=== PATIENT | male | born 1960 | race Caucasian/White ===

== ENCOUNTER 2021-08-01 11:06 | Outpatient (REF) | payer MEDICAID, SELFPAY ==
--- NOTE | ~2021-08-01 | XR_ITS ---
EXAMINATION: XR CHEST CLINICAL INFORMATION: Chest pain. COMPARISON: Chest 02/20/2016 TECHNIQUE: 2 views of the chest were obtained. FINDINGS: The lungs are hyperinflated but clear. The heart size and pulmonary vascularity is normal. There is a 6 mm nodule right lower lobe. The rest of the lungs are clear. Heart size and pulmonary vascularity is normal. No gross bony abnormality seen. XR/XR chest 2V IMPRESSION: 6 mm calcified nodule right lower lobe, stable since 2016. Otherwise emphysematous lungs, but clear.
== END 2021-08-01 11:07 | disposition home or self-care (01) ==
LOC: HO.XRAY 11:06
PROVIDERS: PCP Family Medicine; Visit Provider Family Medicine
DX: R07.89 Other chest pain (principal)
CPT/HCPCS: 71046

== ENCOUNTER 2021-08-07 15:30 | Outpatient (REF) | payer MEDICAID, SELFPAY ==
--- NOTE | ~2021-08-07 | XR_ITS ---
EXAMINATION: LEFT ELBOW, LEFT HUMERUS AND LEFT SHOULDER. CLINICAL INFORMATION: Pain. COMPARISON: None TECHNIQUE: Left elbow 3 views. Left humerus 2 views. Left shoulder 3 views. FINDINGS: Left elbow: There is no visible acute fracture, dislocation or subluxation. No abnormal joint effusion or bony erosive changes. Left humerus: There is no visible acute fracture or bony abnormality. The soft tissues are normal. Left shoulder: The glenohumeral and AC joint space is maintained normal. No visible acute fracture, dislocation or lytic process seen. The soft tissues are normal.: XR/XR humerus LT IMPRESSION: Unremarkable left elbow exam. Unremarkable left humerus exam. Unremarkable left shoulder exam.
--- NOTE | ~2021-08-07 | XR_ITS ---
EXAMINATION: LEFT ELBOW, LEFT HUMERUS AND LEFT SHOULDER. CLINICAL INFORMATION: Pain. COMPARISON: None TECHNIQUE: Left elbow 3 views. Left humerus 2 views. Left shoulder 3 views. FINDINGS: Left elbow: There is no visible acute fracture, dislocation or subluxation. No abnormal joint effusion or bony erosive changes. Left humerus: There is no visible acute fracture or bony abnormality. The soft tissues are normal. Left shoulder: The glenohumeral and AC joint space is maintained normal. No visible acute fracture, dislocation or lytic process seen. The soft tissues are normal.: XR/XR shoulder LT min 2V IMPRESSION: Unremarkable left elbow exam. Unremarkable left humerus exam. Unremarkable left shoulder exam.
--- NOTE | ~2021-08-07 | XR_ITS ---
EXAMINATION: LEFT ELBOW, LEFT HUMERUS AND LEFT SHOULDER. CLINICAL INFORMATION: Pain. COMPARISON: None TECHNIQUE: Left elbow 3 views. Left humerus 2 views. Left shoulder 3 views. FINDINGS: Left elbow: There is no visible acute fracture, dislocation or subluxation. No abnormal joint effusion or bony erosive changes. Left humerus: There is no visible acute fracture or bony abnormality. The soft tissues are normal. Left shoulder: The glenohumeral and AC joint space is maintained normal. No visible acute fracture, dislocation or lytic process seen. The soft tissues are normal.: XR/XR elbow LT min 3V IMPRESSION: Unremarkable left elbow exam. Unremarkable left humerus exam. Unremarkable left shoulder exam.
[2021-08-07 16:06] LABS: Basophils Percent Auto 0.4 % (0-2); Hematocrit 39.2 % (42.0-52.0); PLT CLUMP 1; Red Cell Distribution Width 12.5 % (11.0-16.0); SCAN SMEAR FLAG 1
[2021-08-07 16:09] LABS: Eosinophils Absolute Auto 0.2 X10*3/uL (0.0-0.4); Eosinophils Percent Auto 4.1 % (0-4); Hemoglobin 13.7 g/dl (14.0-18.0); Imm Gran Abs Auto 0.02 X10*3/uL (0.00-0.03); Imm Gran Pct Auto 0.4 % (0.0-0.4); Lymphocytes Absolute Auto 1.4 X10*3/uL (1.2-4.9); Lymphocytes Percent Auto 24.1 % (20-40); MANUAL DIFF FLAG SCAN; Mean Corpuscular HGB Conc 34.9 g/dl (31.0-36.0); Mean Corpuscular Hemoglobin 30.9 pg (27.0-33.0); Mean Corpuscular Volume 88.5 fL (80.0-98.0); Monocytes Absolute Auto 0.7 X10*3/uL (0.1-1.2); Neutrophils Absolute Auto 3.3 x10*3/uL (2.0-8.3); Red Blood Count 4.43 X10*6/uL (4.60-5.80)
[2021-08-07 16:11] LABS: White Blood Count 5.6 X10*3/uL (4.8-10.8)
[2021-08-07 16:36] LABS: SLIDE REVIEW VERIFIED
== END 2021-08-07 15:31 | disposition home or self-care (01) ==
LOC: HO.XRAY 15:30
PROVIDERS: PCP Family Medicine; Visit Provider Family Medicine
DX: M25.522 Pain in left elbow (principal); M25.512 Pain in left shoulder; K74.60 Unspecified cirrhosis of liver
CPT/HCPCS: 36415; 73030; 73060; 73080; 85025

== ENCOUNTER → 2022-02-14 08:57 | Outpatient (BNVA) | payer MEDICAID, SELFPAY | PROVIDERS: PCP Family Medicine; Visit Provider Internal Medicine Gastroenterology | DX: K74.60 Unspecified cirrhosis of liver (principal) | CPT/HCPCS: 99202 ==

== ENCOUNTER 2022-02-14 09:58 | Outpatient (REF) | payer MEDICAID, SELFPAY ==
[2022-02-14 10:38] LABS: MANUAL DIFF FLAG NO
[2022-02-14 11:52] LABS: Basophils Percent Auto 0.6 % (0-2); Eosinophils Absolute Auto 0.3 X10*3/uL (0.0-0.4); Eosinophils Percent Auto 5.4 % (0-4); Hematocrit 43.7 % (42.0-52.0); Hemoglobin 14.9 g/dl (14.0-18.0); Imm Gran Abs Auto 0.01 X10*3/uL (0.00-0.03); Imm Gran Pct Auto 0.2 % (0.0-0.4); Lymphocytes Percent Auto 19.1 % (20-40); Mean Corpuscular HGB Conc 34.1 g/dl (31.0-36.0); Mean Corpuscular Hemoglobin 30.5 pg (27.0-33.0); Mean Corpuscular Volume 89.5 fL (80.0-98.0); Mean Platelet Volume 10.7 fL (9.4-12.4); Monocytes Absolute Auto 0.7 X10*3/uL (0.1-1.2); Monocytes Percent Auto 13.7 % (2-11); Neutrophils Absolute Auto 3.2 x10*3/uL (2.0-8.3); Platelet Count 108 X10*3/uL (160-400); Red Blood Count 4.88 X10*6/uL (4.60-5.80); Red Cell Distribution Width 12.9 % (11.0-16.0); White Blood Count 5.2 X10*3/uL (4.8-10.8)
[2022-02-14 12:01] LABS: INTERNATIONAL NORM RATIO 1.1 (0.9-1.1); Prothrombin Time 12.1 SEC (10.0-13.1)
[2022-02-14 12:31] LABS: Erythrocyte Sedimentation Rate 5 MM/HR (0-15)
[2022-02-14 13:11] LABS: HBS Num1 1.29 mIU/mL (0-7.99); HBc Num1 0.08 S/CO (0.00-0.79); HBsAGNum1 0.31 S/CO (0.00-0.99); Hepatitis A Antibody IgM 0.12 Index (0-0.79); Hepatitis B Core Antibody Nonreactive (Nonreactive); Hepatitis B Surface Antigen Negative (Negative); ~HepC Num1 12.71 S/CO (0.00-0.79); ~Hepatitis A Antibody IgM Nonreactive (Nonreactive); ~Hepatitis B Surface Antibody NONREACTIVE (Nonreactive); ~Hepatitis C Antibody Reactive (Nonreactive)
[2022-02-14 13:13] LABS: Folate 13.6 ng/mL (> or = 4.0); Vitamin B12 532 pg/mL (200-900)
[2022-02-14 14:28] LABS: Alanine Aminotransferase 26 U/L (0-40); Albumin Level 4.3 g/dL (3.5-5.0); Alkaline Phosphatase 58 U/L (39-117); Anion Gap 12 (12-20); Aspartate Amino Transferase 29 U/L (5-37); Bilirubin Total 0.6 mg/dL (0.0-1.0); Blood Urea Nitrogen 23 mg/dL (9-16); C Reactive Protein < 0.10 mg/dL (< or = 0.50); Calcium 9.5 mg/dL (8.4-10.2); Carbon Dioxide 23 mmol/L (22-29); Chloride 104 mmol/L (96-108); Estimated Glomerular Filt Rate > 60; Ferritin 362 ng/mL (20-250); Glucose Random 97 mg/dL (60-115); Iron 60 mcg/dL (45-160); Percent Iron Saturation 26 % (15-50); Potassium 3.9 mmol/L (3.3-5.1); Sodium 135 mmol/L (135-145); Total Iron Binding Capacity 235 mcg/dL (228-428); Unsaturated Iron Binding 175 ug/dL; Vitamin D 25-OH Total 31.1 ng/mL (>30)
[2022-02-17 12:28] LABS: Immunoglobulin G 1169 mg/dL (600-1540)
[2022-02-17 15:53] LABS: HCV RNA PCR Qn <1.18 NOT DETECTED Log IU/mL (NOT DETECTED); HCV RNA PCR Qn <15 NOT DETECTED IU/mL (NOT DETECTED)
[2022-02-18 09:33] LABS: Anti Nuclear Antibody Screen POSITIVE (NEGATIVE)
[2022-02-18 12:43] LABS: Gliadin Deamidated IgA Ab <1.0 U/mL; Gliadin Deamidated IgG Ab <1.0 U/mL; Transglutaminase Ab IgG <1.0 U/mL
[2022-02-18 14:28] LABS: Soluble Liver Ag Autoantibody <20.1 U (0.0-20.0)
[2022-02-18 22:39] LABS: FIB-ALT 24 U/L (9-46); FIB-Alpha-2-Macroglobulin 341 mg/dL (106-279); FIB-Apolipoprotein A1 148 mg/dL (94-176); FIB-GGT 34 U/L (3-70); FIB-Haptoglobin 44 mg/dL (43-212); FIB-Total Bilirubin 0.4 mg/dL (0.2-1.2); Liver Fibrosis Score 0.65; Liver Fibrosis Stage F3; Nec Inflam Act Grade A0; Nec Inflam Act Score 0.17
[2022-02-19 04:49] LABS: Liver Kidney Microsomal Ab <=20.0 U (<=20.0)
[2022-02-19 11:54] LABS: Vitamin C 1.2 mg/dL (0.2-2.1)
[2022-02-19 14:28] LABS: Smooth Muscle Antibody <20 U (<20)
[2022-02-19 14:44] LABS: Vitamin K1 >2500 pg/mL (130-1500)
[2022-02-19 16:28] LABS: Alpha-Tocopherol 9.9 mg/L (5.7-19.9)
[2022-02-19 16:37] LABS: Vitamin A 35 mcg/dL (38-98)
[2022-02-19 16:53] LABS: Nicotinamide <20 ng/mL; Vit B3 - Nicotinic Acid <20 ng/mL
[2022-02-19 17:53] LABS: Zinc 57 mcg/dL (60-130)
[2022-02-19 23:47] LABS: Vitamin B5 (Pantothenic Acid) 45 ng/mL (<275)
[2022-02-20 13:08] LABS: Mitochondrial Antibodies NEGATIVE (NEGATIVE)
[2022-02-20 15:53] LABS: Vitamin B1 22 nmol/L (8-30)
== END 2022-02-14 09:59 | disposition home or self-care (01) ==
LOC: HO.LAB 09:58
PROVIDERS: PCP Family Medicine; Visit Provider Internal Medicine Gastroenterology
DX: R10.33 Periumbilical pain (principal); R79.82 Elevated C-reactive protein (CRP); K75.81 Nonalcoholic steatohepatitis (NASH); K74.60 Unspecified cirrhosis of liver; K52.839 Microscopic colitis, unspecified; G89.29 Other chronic pain; R79.89 Other specified abnormal findings of blood chemistry
CPT/HCPCS: 36415; 80053; 81596; 82180; 82306; 82607; 82728; 82746; 82784; 83520; 83540; 84207; 84425; 84446; 84590; 84591; 84597; 84630; 85025; 85610; 85652; 86015; 86038; 86039; 86140; 86255; 86256; 86258; 86364; 86376; 86704; 86706; 86709; 86803; 87340; 87522; 87902; 99202

== ENCOUNTER 2022-03-24 09:59 | Outpatient (REF) | payer MEDICAID, SELFPAY ==
--- NOTE | ~2022-03-24 | US_ITS ---
EXAMINATION: US COMPLETE ABDOMEN WITH LIVER ELASTOGRAPHY CLINICAL INFORMATION: Unspecified cirrhosis of liver. COMPARISON: Ultrasound abdomen 02/24/2015. TECHNIQUE: Real-time imaging of the abdominal viscera. Noninvasive ultrasound liver fibrosis assessment is performed using Huber ElastPQ point quantification shear wave elastography (2D-SWE) with a C5-2 MHz transducer. Multiple elastography samples are obtained. FINDINGS: PANCREAS: The visualized pancreatic head and body are normal in appearance. The remainder of the pancreas is obscured from visualization by the overlying bowel gas. ABDOMINAL AORTA: The proximal, middle, and distal aortic segments are normal in caliber. INFERIOR VENA CAVA: Visualized portions are normal. LIVER: The liver demonstrates normal size, lobulated contour and increased echogenicity. No focal lesion or intrahepatic biliary duct dilatation. The right lobe measures 11.1 cm in length. The left lobe measures 8.5 cm in length. Portal flow is hepatopedal. Shear wave liver elastography median stiffness is 1.88 m/s (reference: normal median stiffness is 1.3 m/s or less). IQR/median stiffness to assess sampling precision is 0.11 (reference: good quality data set is IQR/median stiffness of 0.15 or less). GALLBLADDER: The gallbladder has been surgically removed. COMMON BILE DUCT: Normal in caliber measuring 0.7 cm in diameter. RIGHT KIDNEY: Normal. No hydronephrosis. No renal calculi or focal parenchymal lesions. The kidney measures 9.2 cm in maximum dimension. LEFT KIDNEY: Normal. No hydronephrosis. No renal calculi or focal parenchymal lesions. The kidney measures 9.0 cm in maximum dimension. SPLEEN: Normal. The spleen measures 11.2 cm in maximum dimension. FREE FLUID: None. US/US abdomen comp w elastography IMPRESSION: 1. Echogenic cirrhotic liver without focal lesions. 2. Cholecystectomy new since last ultrasound 02/24/2015. 3. The rest of the abdominal ultrasound is unremarkable. 4. Liver elastography: Median liver stiffness 1.88 m/s corresponding to cACLD (suggestive). REFERENCE: Society of Radiologists in Ultrasound Liver Stiffness Thresholds (2020): LIVER STIFFNESS THRESHOLDS: *Liver Stiffness equal or less than 1.3 m/s: High probability of being normal. *Liver Stiffness less than 1.7 m/s: In the absence of other known clinical signs, rules out compensated advanced chronic liver disease. *Liver Stiffness 1.7-2.1 m/s: Suggestive of compensated advanced chronic liver disease but need further test for confirmation. *Liver Stiffness over 2.1 m/s: Rules in compensated advanced chronic liver disease. *Liver Stiffness over 2.4 m/s: Suggestive of clinically significant portal hypertension. QUALITY OF DATA SET: *IQR/Median value equal or less than 0.15 implies a quality data set. *IQR/Median value over 0.15 implies a poor quality data set. SIGNIFICANT CHANGE FROM PRIOR EXAM: Significant change if liver stiffness measurement is 10% or greater from prior exam. OTHER CONSIDERATIONS: The stage of liver fibrosis may be overestimated in the setting of acute hepatitis, liver inflammation, elevated liver function tests, hepatic vascular congestion, obstructive cholestasis, non-fasting state, and infiltrative diseases such as amyloidosis and lymphoma. In some patients with NAFLD, the liver stiffness thresholds for compensated advanced chronic liver disease may be lower. In causes other than viral hepatitis and NAFLD, liver stiffness thresholds are not well established.
== END 2022-03-24 10:00 | disposition home or self-care (01) ==
LOC: HO.US 09:59
PROVIDERS: PCP Family Medicine; Visit Provider Internal Medicine Gastroenterology
DX: K74.60 Unspecified cirrhosis of liver (principal)
CPT/HCPCS: 76705; 76981

== ENCOUNTER 2022-06-10 07:58 | Outpatient (REF) | payer MEDICAID, SELFPAY ==
[2022-06-10 09:12] LABS: MANUAL DIFF FLAG NO
[2022-06-10 09:43] LABS: Basophils Percent Auto 0.7 % (0-2); Eosinophils Absolute Auto 0.3 X10*3/uL (0.0-0.4); Eosinophils Percent Auto 5.6 % (0-4); Hematocrit 42.7 % (42.0-52.0); Imm Gran Abs Auto 0.02 X10*3/uL (0.00-0.03); Imm Gran Pct Auto 0.3 % (0.0-0.4); Lymphocytes Absolute Auto 1.4 X10*3/uL (1.2-4.9); Mean Corpuscular HGB Conc 35.1 g/dl (31.0-36.0); Mean Corpuscular Hemoglobin 31.3 pg (27.0-33.0); Mean Platelet Volume 10.1 fL (9.4-12.4); Monocytes Absolute Auto 0.8 X10*3/uL (0.1-1.2); Monocytes Percent Auto 13.5 % (2-11); Neutrophils Absolute Auto 3.1 x10*3/uL (2.0-8.3); Neutrophils Percent Auto 54.9 % (45-73); Platelet Count 121 X10*3/uL (160-400); Red Cell Distribution Width 13.2 % (11.0-16.0); White Blood Count 5.7 X10*3/uL (4.8-10.8)
[2022-06-10 09:59] LABS: Appearance Urine Clear; Color Urine Yellow; Glucose Urine UA Negative (Negative); Leukocyte Esterase Urine Negative (Negative); Nitrite Urine Negative (Negative); Urine Blood Negative (Negative); Urine Ketones Negative (Negative); Urine Protein Negative (Neg-Trace)
[2022-06-10 10:05] LABS: Bacteria Urine None Seen (None Seen); Hyaline Casts Urine 0-2 /LPF (0-2); RBC Urine 0-2 /HPF (0-2); Squamous Epithelial Cell Urine 0-2 /HPF (0-2); WBC Urine 0-5 /HPF (0-5)
[2022-06-10 10:20] LABS: Creatinine Urine 57.46 mg/dL; Total Protein Urine Random < 7 mg/dL (<12)
[2022-06-10 10:22] LABS: Erythrocyte Sedimentation Rate 3 MM/HR (0-15)
[2022-06-10 10:33] LABS: Anion Gap 13 (12-20)
[2022-06-10 10:34] LABS: Alanine Aminotransferase 34 U/L (0-40); Albumin Level 4.2 g/dL (3.5-5.0); Alkaline Phosphatase 48 U/L (39-117); Aspartate Amino Transferase 31 U/L (5-37); Blood Urea Nitrogen 15 mg/dL (9-16); C Reactive Protein < 0.04 mg/dL (< or = 0.50); Calcium 9.6 mg/dL (8.4-10.2); Carbon Dioxide 23 mmol/L (22-29); Chloride 110 mmol/L (96-108); Estimated Glomerular Filt Rate > 60; Glucose Random 73 mg/dL (60-115); Rheumatoid Factor < 13.0 IU/mL (<15.0); Sodium 142 mmol/L (135-145); Total Protein 6.8 g/dL (6.5-8.0)
[2022-06-12 14:48] LABS: Cyclic Citrullinated Peptide <16 UNITS
[2022-06-12 14:59] LABS: Complement C3 102 mg/dL (82-185)
[2022-06-13 07:04] LABS: Anti DNA DS Antibody 2 IU/mL; Antibody to SS-A Antigen <1.0 NEG AI (<1.0 NEG); Antibody to SS-B Antigen <1.0 NEG AI (<1.0 NEG); SM/Ribonucleoprotein Ab <1.0 NEG AI (<1.0 NEG); Smith Protein <1.0 NEG AI (<1.0 NEG)
[2022-06-14 13:04] LABS: DNAds, Crithidia Antibody Negative (Negative)
== END 2022-06-10 07:59 | disposition home or self-care (01) ==
LOC: HO.LAB 07:58
PROVIDERS: PCP Family Medicine; Visit Provider Student in an Organized Health Care Education/Training Program
DX: M32.9 Systemic lupus erythematosus, unspecified (principal); M67.912 Unspecified disorder of synovium and tendon, left shoulder; M25.512 Pain in left shoulder; M75.81 Other shoulder lesions, right shoulder; G89.29 Other chronic pain; Z79.899 Other long term (current) drug therapy
CPT/HCPCS: 36415; 80053; 81001; 84156; 85025; 85652; 86140; 86160; 86200; 86225; 86235; 86255; 86431; 99202

== ENCOUNTER → 2022-06-27 09:38 | Outpatient (BNVA) | payer MEDICAID, SELFPAY | PROVIDERS: PCP Family Medicine; Visit Provider Internal Medicine Gastroenterology | DX: K74.60 Unspecified cirrhosis of liver (principal); K75.81 Nonalcoholic steatohepatitis (NASH); B19.20 Unspecified viral hepatitis C without hepatic coma; Z23 Encounter for immunization | CPT/HCPCS: 90471; 90472; 90632; 90746; 99212 ==

== ENCOUNTER 2022-09-18 14:40 | Outpatient (REF) | payer MEDICAID, SELFPAY ==
--- NOTE | ~2022-09-18 | US_ITS ---
EXAMINATION: US RIGHT INGUINAL REGION, LIMITED/FOLLOW UP CLINICAL INFORMATION: Right inguinal pain,? Hernia COMPARISON: None available. TECHNIQUE: Ultrasound the right pelvis/inguinal region FINDINGS: Ultrasound of the right inguinal region demonstrates a 1.6 x 1.3 x 1.6 cm fluid collection disrupting the fascial/muscle layers,? Ligament tear versus tendon tear versus muscle. US/US pelvic limited IMPRESSION: 1.6 cm fluid collection disrupting the fascial/muscle layers in the right inguinal region,? Ligament tear versus tendon tear versus muscle.
== END 2022-09-18 14:41 | disposition home or self-care (01) ==
LOC: HO.US 14:40
PROVIDERS: PCP Family Medicine; Visit Provider Family Medicine
DX: R19.09 Other intra-abdominal and pelvic swelling, mass and lump (principal)
CPT/HCPCS: 76857

== ENCOUNTER 2022-10-09 10:13 | Outpatient (AMB) | payer MEDICAID, SELFPAY ==
--- NOTE | 2022-10-09 10:20 | MHC.OFFVIS ---
Intake Vital Signs 10/09/22 10:40 Height 5 ft 5 in Weight 130 lb 6 oz BMI 21.7 BP 117/70 Blood Pressure Location Lt brachial Position Sitting Pulse 64 Intake Visit Reasons: mass right inguinal area Intake Note: Patient is seen in office for evaluation and treatment of a mass right inguinal area. 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 Accompanied by: Self / Same As Patient Allergies NSAIDS (Non-Steroidal Anti-Inflamma Allergy (Severe, Verified 10/09/22 10:36) Unknown aspirin [ASA] Allergy (Unknown, Verified 10/09/22 10:36) Unknown but cannot take naproxen [NAPROXEN] Allergy (Unknown, Verified 10/09/22 10:36) ABDOMINAL PAIN, ABD PAIN Penicillins [PENICILLINS] Allergy (Unknown, Verified 10/09/22 10:36) Rash tuberculin, purified protein deriva [TB TEST] Allergy (Unknown, Verified 10/09/22 10:36) Unknown acetaminophen [From TYLENOL] Adverse Reaction (Unknown, Verified 10/09/22 10:36) Abdominal Pain mesalamine [From ASACOL] Adverse Reaction (Unknown, Verified 10/09/22 10:36) Abdominal Pain pseudoephedrine [From SUDAFED] Adverse Reaction (Unknown, Verified 10/09/22 10:36) Abdominal Pain ibuprofen [From Motrin] Adverse Reaction (Verified 10/09/22 10:36) Abdominal Pain HPI HPI Comments History of Present Illness Details 62-year-old male patient presenting for evaluation of right groin pain. This began approximately 5 years ago in seems to be worsened with exercise and lifting. The pain is localized to the upper anterior thigh and lower inguinal region. He denies any palpable lump but a lump was noted on physical examination. He subsequently underwent evaluation with ultrasound of the right inguinal region. Apparently a fluid collection was identified felt to be suggestive of a tendon rupture. No hernia could be identified. He denies nausea, vomiting, fever, or chills. 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 He denies a history of previous inguinal surgery. [facility] Medical History Afib Anxiety Cirrhosis Depression Glaucoma Hypertension Surgical History H/O abdominal surgery History of cardiac catheterization History of cholecystectomy History of ear surgery History of tooth extraction S/P LASIK surgery of both eyes Family History Mother Breast cancer Rheumatoid arthritis Social History Household Members: Friend(s) Housing: House Are you a primary healthcare receptionist to a significant other at home: No Do you presently have visiting nurse or other home services: No Patient Tobacco Use Status: Never used Tobacco Second Hand Smoke Exposure: Yes Substance Use Type: Marijuana service: No Current occupational status: disabled Review of Systems Const All systems reviewed & are unremarkable except as noted in HPI and below Denies chills, Denies fever(s), Denies headache(s), Denies poor appetite and Denies weakness ENT Denies headache(s) Card Denies chest pain, Denies irregular heart rhythm, Denies palpitations and Denies dyspnea Resp Denies cough, Denies excessive phlegm production and Denies dyspnea GI Reports as per HPI, Reports abdominal pain, Denies bloating, Denies change in bowel habits, Denies constipation, Denies heartburn, Denies diarrhea, Denies nausea and Denies vomiting Denies difficulty urinating and Denies urinary frequency Musc Denies back pain, Denies muscle weakness and Denies numbness Skin/Breast Denies changing lesions and Denies unusual bruising Neuro Denies headache(s), Denies numbness, Denies paresthesias and Denies weakness Psych Denies anxiety and Denies depression Endo Denies palpitations Oneil/Lymph Denies lymphadenopathy Physical Exam Vital Signs: Last Vital Signs Pulse 64 10/09/22 10:40 BP 117/70 10/09/22 10:40 BMI result Body Mass Index 21.7 Const General: cooperative and no acute distress Nutritional Appearance: well nourished Orientation/consciousness: patient oriented x3 Limitations: no limitations HEENT Head: Yes normocephalic and Yes atraumatic Ears: hearing grossly normal bilaterally Resp Effort & Inspection: normal respiratory effort, no audible wheezes, no cough and no respiratory distress Cardio Jugular venous distension: no JVD GI Other: Tenderness with palpation of the upper anterior thigh below the inguinal ligament along the medial tendons and into the inguinal canal. No hernias noted with Valsalva maneuvers. No palpable lump or lymphadenopathy could be appreciated. Inspection: Yes normal to inspection Abdomen image: 1. Area of maximal tenderness palpation. No hernia appreciated. Skin Other: Warm, dry, no rash Neuro General: patient oriented x3 Extrem General: Yes no clubbing, cyanosis or edema Assessment & Plan Assessment & Plan (1) Right groin pain: Code(s): R10.31 - Right lower quadrant pain Plan 62-year-old male patient presenting with severe pain in the right groin found to possibly have a muscle or ligament tear. Examination today revealed no palpable hernia explain his symptoms. I did recommend further evaluation with a CT of the abdomen and pelvis to further evaluate for any intestinal or muscular injury. He will return following this study to review the results and discuss treatment options. Orders: Orders CT abdomen pelvis wo IV con Today R10.31 - Right lower quadrant pain Coding Level of Care Code New Pt Level 4 (00044) Diagnoses Right groin pain R10.31
[2022-10-09 10:40] VITALS: BP 117/70; PULSE 64; BMI 21.7
== END 2022-10-09 10:46 | disposition home or self-care (01) ==
PROVIDERS: PCP Family Medicine; Referring Provider Family Medicine; Visit Provider Surgery
DX: R10.31 Right lower quadrant pain (principal)
CPT/HCPCS: 99204

== ENCOUNTER → 2022-10-09 10:13 | Outpatient (BNVA) | payer MEDICAID, SELFPAY | PROVIDERS: PCP Family Medicine; Referring Provider Family Medicine; Visit Provider Surgery | DX: R10.31 Right lower quadrant pain (principal) | CPT/HCPCS: 99202 ==

== ENCOUNTER 2022-12-03 09:01 | Outpatient (REF) | payer MEDICAID, SELFPAY ==
--- NOTE | ~2022-12-03 | CT_ITS ---
EXAMINATION: CT ABDOMEN AND PELVIS WITHOUT CONTRAST CLINICAL INFORMATION: Right lower quadrant pain COMPARISON: 02/24/1950 TECHNIQUE: Multidetector volumetric imaging was performed from the superior aspect of the liver through the pubic symphysis. Sagittal and coronal reformatted images were obtained on the technologist's workstation. This CT examination was performed using dose optimization techniques as appropriate, variously including the following: *Automated exposure control *Adjustment of mA and/or kV according to patient size (this includes techniques or standardized protocols for targeted exams where dose is matched to indication/reason for exam; i.e. 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 LUNG BASES: Lingular and bilateral lower lobe atelectasis. Right lower lobe granuloma. LIVER, GALLBLADDER, AND BILIARY TREE: Nodular shrunken liver. Status post cholecystectomy. No intra or extrahepatic biliary ductal PANCREAS: Diffuse calcifications. Pancreatic duct measures 4 mm, seen previously. SPLEEN: Unremarkable. ADRENAL GLANDS: Unremarkable. KIDNEYS AND URETERS: The kidneys are normal in size, shape, and attenuation. No hydronephrosis, hydroureter, or calculi seen. No perinephric stranding. BLADDER: Unremarkable. GASTROINTESTINAL TRACT: Debris-filled stomach. Mild small bowel dilatation and mild small bowel wall thickening. Unremarkable terminal ileum and appendix. Moderate fecal retention. ABDOMINAL WALL: Unchanged appearance soft tissue density bilateral inguinal hernias. Left hydrocele. Left scrotal calcification. LYMPH NODES: No pathologic lymphadenopathy VASCULAR: Recannulized umbilical vein and prominent anterior abdominal pelvic collaterals. Atherosclerotic calcifications nonaneurysmal aorta. Normal caliber inferior vena cava PELVIC VISCERA: Unremarkable. OSSEOUS STRUCTURES: Slight retrolisthesis L5 on S1 with severe L5-S1 disc space narrowing and vacuum disc phenomenon. CT/CT abdomen pelvis wo IV con IMPRESSION: Cirrhosis and portal hypertension. Pancreatic calcifications consistent with chronic pancreatitis. Mild small bowel dilatation and wall thickening, possibly related to portal hypertensive uropathy versus infectious or inflammatory etiology. Moderate fecal retention. Fleischner guidelines were followed.
== END 2022-12-03 09:02 | disposition home or self-care (01) ==
LOC: HO.CT 09:01
PROVIDERS: PCP Family Medicine; Visit Provider Surgery
DX: R10.31 Right lower quadrant pain (principal)
CPT/HCPCS: 74176

== ENCOUNTER 2023-01-20 08:59 | Outpatient (AMB) | payer MEDICAID, SELFPAY ==
[2023-01-20 09:00] VITALS: BP 139/82; PULSE 76; BMI 22.2
--- NOTE | 2023-01-20 09:00 | MHC.OFFVIS ---
Intake Vital Signs 01/20/23 09:00 Height 5 ft 5 in Weight 133 lb 8 oz BMI 22.2 BP 139/82 Blood Pressure Location Lt brachial Position Sitting Pulse 76 Intake Visit Reasons: right groin pain, Ct results Intake Note: Patient is seen in office for CT scan results, following right groin pain. 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 Accompanied by: Self / Same As Patient Allergies NSAIDS (Non-Steroidal Anti-Inflamma Allergy (Severe, Verified 01/20/23 09:00) Unknown aspirin [ASA] Allergy (Unknown, Verified 01/20/23 09:00) Unknown but cannot take naproxen [NAPROXEN] Allergy (Unknown, Verified 01/20/23 09:00) ABDOMINAL PAIN, ABD PAIN Penicillins [PENICILLINS] Allergy (Unknown, Verified 01/20/23 09:00) Rash tuberculin, purified protein deriva [TB TEST] Allergy (Unknown, Verified 01/20/23 09:00) Unknown acetaminophen [From TYLENOL] Adverse Reaction (Unknown, Verified 01/20/23 09:00) Abdominal Pain mesalamine [From ASACOL] Adverse Reaction (Unknown, Verified 01/20/23 09:00) Abdominal Pain pseudoephedrine [From SUDAFED] Adverse Reaction (Unknown, Verified 01/20/23 09:00) Abdominal Pain ibuprofen [From Motrin] Adverse Reaction (Verified 01/20/23 09:00) Abdominal Pain Medication List - Last Reconciled 01/20/23 by Edwin Cary MD atorvastatin (Lipitor) 1 tab PO DAILY diclofenac sodium 1% 2 grams topical QID hydrochlorothiazide 1 tab PO DAILY multivitamin 1 tab PO DAILY peg-electrolyte soln 420 gram 240 mL PO Q10M potassium citrate ER 10 mEq PO DAILY shilajit mg PO tamsulosin 1 cap PO DAILY jzvitpa-fijp-mzeih-oreg-capryl 100 mg-150 mg- 50 mg-150 mg caps PO HPI HPI Comments History of Present Illness Details 62-year-old male patient presenting for evaluation of right groin pain. This began approximately 5 years ago in seems to be worsened with exercise and lifting. The pain is localized to the upper anterior thigh and lower inguinal region. He denies any palpable lump but a lump was noted on physical examination. He subsequently underwent evaluation with ultrasound of the right inguinal region. Apparently a fluid collection was identified felt to be suggestive of a tendon rupture. No hernia could be identified. He denies nausea, vomiting, fever, or chills. 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 He denies a history of previous inguinal surgery. He underwent evaluation with CT pelvis the results of which are being reviewed today. No inguinal hernias identified on either side with possible ligamentous injury. [facility] Medical History Afib Glaucoma Hypertension Anxiety Depression Cirrhosis Surgical History History of tooth extraction History of cardiac catheterization History of ear surgery History of cholecystectomy H/O abdominal surgery S/P LASIK surgery of both eyes Family History Mother Breast cancer Rheumatoid arthritis Social History Household Members: Friend(s) Housing: House Are you a primary healthcare applications analyst to a significant other at home: No Do you presently have visiting nurse or other home services: No Patient Tobacco Use Status: Never used Tobacco Second Hand Smoke Exposure: Yes Substance Use Type: Marijuana service: No Current occupational status: disabled Review of Systems Const All systems reviewed & are unremarkable except as noted in HPI and below Denies chills, Denies fever(s), Denies headache(s), Denies poor appetite and Denies weakness ENT Denies headache(s) Card Denies chest pain, Denies irregular heart rhythm, Denies palpitations and Denies dyspnea Resp Denies cough, Denies excessive phlegm production and Denies dyspnea GI Reports as per HPI, Reports abdominal pain, Denies bloating, Denies change in bowel habits, Denies constipation, Denies heartburn, Denies diarrhea, Denies nausea and Denies vomiting Denies difficulty urinating and Denies urinary frequency Musc Denies back pain, Denies muscle weakness and Denies numbness Skin/Breast Denies changing lesions and Denies unusual bruising Neuro Denies headache(s), Denies numbness, Denies paresthesias and Denies weakness Psych Denies anxiety and Denies depression Endo Denies palpitations Oneil/Lymph Denies lymphadenopathy Physical Exam Vital Signs: Last Vital Signs Pulse 76 01/20/23 09:00 BP 139/82 01/20/23 09:00 BMI result Body Mass Index 22.2 Const General: cooperative and no acute distress Nutritional Appearance: well nourished Orientation/consciousness: patient oriented x3 Limitations: no limitations HEENT Head: Yes normocephalic and Yes atraumatic Ears: hearing grossly normal bilaterally Resp Effort & Inspection: normal respiratory effort, no audible wheezes, no cough and no respiratory distress Cardio Jugular venous distension: no JVD GI Other: Tenderness with palpation of the upper anterior thigh below the inguinal ligament along the medial tendons and into the inguinal canal. No hernias noted with Valsalva maneuvers. No palpable lump or lymphadenopathy could be appreciated. Inspection: Yes normal to inspection Skin Other: Warm, dry, no rash Neuro General: patient oriented x3 Extrem General: Yes no clubbing, cyanosis or edema Assessment & Plan Assessment & Plan (1) Right groin pain: Code(s): R10.31 - Right lower quadrant pain Plan No definite hernia noted by CT, question ligamentous injury by ultrasound. No indication for inguinal hernia repair at this time. Suggest evaluation by either physical therapy or orthopedics. Follow-up p.r.n.. Coding Level of Care Code Est Pt Level 3 (96457) Diagnoses Right groin pain R10.31
== END 2023-01-20 09:12 | disposition home or self-care (01) ==
PROVIDERS: PCP Family Medicine; Visit Provider Surgery
DX: R10.31 Right lower quadrant pain (principal)
CPT/HCPCS: 99213

== ENCOUNTER → 2023-01-20 08:59 | Outpatient (BNVA) | payer MEDICAID, SELFPAY | PROVIDERS: PCP Family Medicine; Visit Provider Surgery | DX: R10.31 Right lower quadrant pain (principal) | CPT/HCPCS: 99212 ==

== ENCOUNTER 2023-02-09 11:31 | Outpatient (REF) | payer MEDICAID, SELFPAY ==
[2023-02-09 14:34] LABS: Anion Gap 11 (12-20); Blood Urea Nitrogen 14 mg/dL (9-16); Calcium 9.7 mg/dL (8.4-10.2); Carbon Dioxide 26 mmol/L (22-29); Chloride 106 mmol/L (96-108); Estimated Glomerular Filt Rate > 60; Glucose Random 84 mg/dL (60-115); Magnesium 1.9 mg/dL (1.6-2.6); Potassium 3.8 mmol/L (3.3-5.1); Sodium 139 mmol/L (135-145)
== END 2023-02-09 11:32 | disposition home or self-care (01) ==
LOC: HO.CHCLDS 11:31
PROVIDERS: Visit Provider Family Medicine
DX: E87.6 Hypokalemia (principal)
CPT/HCPCS: 36415; 80048; 83735

== ENCOUNTER 2023-02-18 07:55 | Outpatient (AMB) | payer MEDICAID, SELFPAY ==
--- NOTE | 2023-02-18 08:04 | MHC.OFFVIS ---
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 Patient reports symptoms began approximately 5 years ago that seems to be worsened with exercise or lifting. CT was obtained of pelvis. Denies injury, numbness or tingling, states believes pain was caused from exercises. Allergies NSAIDS (Non-Steroidal Anti-Inflamma Allergy (Severe, Verified 02/18/23 08:09) Unknown aspirin [ASA] Allergy (Unknown, Verified 02/18/23 08:09) Unknown but cannot take naproxen [NAPROXEN] Allergy (Unknown, Verified 02/18/23 08:09) ABDOMINAL PAIN, ABD PAIN Penicillins [PENICILLINS] Allergy (Unknown, Verified 02/18/23 08:09) Rash tuberculin, purified protein deriva [TB TEST] Allergy (Unknown, Verified 02/18/23 08:09) Unknown acetaminophen [From TYLENOL] Adverse Reaction (Unknown, Verified 02/18/23 08:09) Abdominal Pain mesalamine [From ASACOL] Adverse Reaction (Unknown, Verified 02/18/23 08:09) Abdominal Pain pseudoephedrine [From SUDAFED] Adverse Reaction (Unknown, Verified 02/18/23 08:09) Abdominal Pain ibuprofen [From Motrin] Adverse Reaction (Verified 02/18/23 08:09) Abdominal Pain Medication List - Last Reconciled 02/18/23 by Magnus Baltazar PA-C atorvastatin (Lipitor) 1 tab PO DAILY diclofenac sodium 1% 2 grams topical QID hydrochlorothiazide 1 tab PO DAILY multivitamin 1 tab PO DAILY peg-electrolyte soln 420 gram 240 mL PO Q10M potassium citrate ER 10 mEq PO DAILY shilajit mg PO tamsulosin 1 cap PO DAILY dcepzlx-hcvm-ncorb-oreg-capryl 100 mg-150 mg- 50 mg-150 mg caps PO 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 He states he has worsening pain in his right groin which is aggravated with exercises and lifting. He denies any numbness, tingling or pain with getting in and out of car. He has not had any previous injury. He had undergone a CT scan of the pelvis which was negative for hernia. He was referred to our office for further evaluation. [facility] Medical History Afib Glaucoma Hypertension Anxiety Depression Cirrhosis Surgical History History of tooth extraction History of cardiac catheterization History of ear surgery History of cholecystectomy H/O abdominal surgery S/P LASIK surgery of both eyes Family History Mother Breast cancer Rheumatoid arthritis Social History Household Members: Friend(s) Housing: House Are you a primary healthcare network pricing consultant to a significant other at home: No Do you presently have visiting nurse or other home services: No Patient Tobacco Use Status: Never used Tobacco Second Hand Smoke Exposure: Yes Substance Use Type: Marijuana service: No Current occupational status: disabled Review of Systems Const All systems reviewed & are unremarkable except as noted in HPI and below Physical Exam Vital Signs: BMI result Body Mass Index 22.1 Const General: cooperative, healthy appearing, comfortable, no acute distress, well developed and alert Orientation/consciousness: patient oriented x3 HEENT Head: Yes normal to inspection, Yes normocephalic and Yes atraumatic Eyes General: appearance normal, both eyes and all related structures Resp Effort & Inspection: normal respiratory effort and able to speak in complete sentences Cardio Rate: regular rate Peripheral pulses: Peripheral pulses 2+ throughout GI Palpation (GI): Soft to palpation Skin Lesions: no lesions Rashes: no rashes Neuro General: patient oriented x3 Extrem Other: Right hip: Normal to inspection. He has no pain with ROM of hip. No pain with hip flexion. No pain with hip ABDuction however there is discomfort with ADDuction of hip against resistance. He has mild discomfort with palpation along the iliopsoas and discomfort with SLR in the groin region. He has full ROM of knee without pain. NVI. Assessment & Plan Assessment & Plan (1) Right groin pain: Code(s): R10.31 - Right lower quadrant pain (2) Iliopsoas bursitis of right hip: Code(s): M70.71 - Other bursitis of hip, right hip Plan We discussed options which include physical therapy and further imaging. Because this is going on for quite some time and limiting his daily activities, an MRI has been ordered to further evaluate the right hip. I will see him back once the scan is complete. Orders: Orders MR hip RT wo con Today M70.71 - Other bursitis of hip, right hip, R10.31 - Right lower quadrant pain Patient Instructions: Scribed for Magnus Baltazar PA-C, by [facility], on 02/18/2023 at 8:00 AM EST. I, Magnus Baltazar PA-C, have personally reviewed and agree with the information entered by the scribe. Coding Level of Care Code New Pt Level 3 (82947) Diagnoses Right groin pain R10.31 Iliopsoas bursitis of right hip M70.71
[2023-02-18 08:09] VITALS: BMI 22.1
== END 2023-02-18 09:32 | disposition home or self-care (01) ==
PROVIDERS: PCP Family Medicine; Visit Provider Physician Assistant
DX: R10.31 Right lower quadrant pain (principal); M70.71 Other bursitis of hip, right hip
CPT/HCPCS: 99203

== ENCOUNTER → 2023-02-18 07:55 | Outpatient (BNVA) | payer MEDICAID, SELFPAY | PROVIDERS: PCP Family Medicine; Visit Provider Physician Assistant | DX: R10.31 Right lower quadrant pain (principal); M70.71 Other bursitis of hip, right hip | CPT/HCPCS: 99212 ==

== ENCOUNTER 2023-04-06 10:28 | Outpatient (REF) | payer MEDICAID, SELFPAY ==
--- NOTE | ~2023-04-06 | MR_ITS ---
EXAMINATION: MR PELVIS WITHOUT CONTRAST CLINICAL INFORMATION: Right lower quadrant and right groin pain for 5 years COMPARISON: CT scan of abdomen and pelvis on 12/03/2022 TECHNIQUE: Examination was performed in a high field strength MRI scanner. Noncontrast multiplanar multisequence MR imaging of the pelvis was performed without IV contrast enhancement. FINDINGS: Urinary bladder is well filled with urine. Seminal vesicles and prostate gland are unremarkable. Pelvic fat plane is clean. No pelvic ascites is seen. No abnormally enlarged iliac or inguinal lymph nodes are found. No inguinal hernia could be seen. The visualized pelvic and proximal thigh muscles are intact with normal signal. The pelvis and bilateral hips are intact. There is asymmetric marked loss of superior right hip joint space. Subarticular cystic erosions are seen in the right acetabulum. Bilateral femoral heads and necks show normal signal without focal lesion. There are trace bilateral hip joint effusions. The visualized bony pelvis show normal signal. Bilateral sacroiliac joints also appear unremarkable. MR/MR pelvis wo con IMPRESSION: 1. Asymmetric marked loss of superior right hip joint space with subarticular cystic erosions in the right acetabulum. This could represent osteoarthritis. 2. No evidence of inguinal hernia or muscle tear could be seen.
== END 2023-04-06 10:29 | disposition home or self-care (01) ==
LOC: HO.MRI 10:28
PROVIDERS: PCP Family Medicine; Visit Provider Family Medicine
DX: R10.31 Right lower quadrant pain (principal)
CPT/HCPCS: 72195

== ENCOUNTER 2023-05-07 11:41 | Outpatient (AMB) | payer MEDICAID, SELFPAY ==
--- NOTE | 2023-05-07 12:56 | MHC.OFFVIS ---
Intake Vital Signs 05/07/23 13:03 Height 5 ft 5 in Weight 138 lb BMI 23.0 BP 126/66 Blood Pressure Location Lt brachial Position Sitting Respiration 14 Pulse 66 Pulse Source Pulse Oximeter Pulse Oximetry (%) 96 Oxygen Delivery Method Room Air Intake Visit Reasons: Right inguinal pain/confirmed Intake Note: Patient comes in for initial visit was referred by primary care. Reports pain 5/10. Allergies NSAIDS (Non-Steroidal Anti-Inflamma Allergy (Severe, Verified 05/07/23 13:02) Unknown aspirin [ASA] Allergy (Unknown, Verified 05/07/23 13:02) Unknown but cannot take naproxen [NAPROXEN] Allergy (Unknown, Verified 05/07/23 13:02) ABDOMINAL PAIN, ABD PAIN Penicillins [PENICILLINS] Allergy (Unknown, Verified 05/07/23 13:02) Rash tuberculin, purified protein deriva [TB TEST] Allergy (Unknown, Verified 05/07/23 13:02) Unknown acetaminophen [From TYLENOL] Adverse Reaction (Unknown, Verified 05/07/23 13:02) Abdominal Pain mesalamine [From ASACOL] Adverse Reaction (Unknown, Verified 05/07/23 13:02) Abdominal Pain pseudoephedrine [From SUDAFED] Adverse Reaction (Unknown, Verified 05/07/23 13:02) Abdominal Pain ibuprofen [From Motrin] Adverse Reaction (Verified 05/07/23 13:02) Abdominal Pain HPI HPI Comments History of Present Illness Details Manuel is 62 years old gentleman who allegedly was incarcerated for the past 5 years and recently got out of the long-term who came today my office with complains on pain in the area of the right groin with radiation into the anterior lateral surface of the thigh to the level of the knee but not below that level. In the past he was evaluated by general surgeon Dr. Cary and inguinal hernia was ruled out after the CT scan. CT scan also did not demonstrate any changes in the right hip joint. Dr. Cary's note states that he most likely received a rupture of the ligament in the right thigh. The conclusion was made after the ultrasound of the right groin area. He can not sleep because of his pain he can not do activities of daily living he can not take care of himself but he can not function normally. He is on permanent disability. He is self mobile. In terms of tissue damage he reports his pain is pulsing throbbing stabbing sharp pulling hurting aching sickening suffocating and tearing sensation. He had physical therapy for lower back pain but never for this condition. He never had any injections. His past medical history significant for hypertension hepatitis-C and liver cirrhosis stage III. He also has enlarged prostate. His past surgical history significant for glaucoma surgery right ear surgery x3 , ventral abdominal hernia, and gallbladder surgery. His past social history he is disabled individual, she denies smoking cigarettes he states that he stopped it 6 years ago he denies drinking alcohol admits stopping drinking 20 years ago he denies recreational drugs which he is stated he is stopped 20 years ago. Currently primary care physician prescribed him oxycodone 5 mg every 4-6 hours p.r.n. pain. [facility] Medical History Afib Glaucoma Hypertension Anxiety Depression Cirrhosis Surgical History History of tooth extraction History of cardiac catheterization History of ear surgery History of cholecystectomy H/O abdominal surgery S/P LASIK surgery of both eyes Family History Mother Breast cancer Rheumatoid arthritis Social History Household Members: Friend(s) Housing: House Are you a primary healthcare representative to a significant other at home: No Do you presently have visiting nurse or other home services: No Patient Tobacco Use Status: Never used Tobacco Second Hand Smoke Exposure: Yes Substance Use Type: Marijuana service: No Current occupational status: disabled Review of Systems Const All systems reviewed & are unremarkable except as noted in HPI and below Denies chills, Denies fever(s), Denies headache(s), Denies poor appetite and Denies weakness ENT Denies headache(s) Card Denies chest pain, Denies irregular heart rhythm, Denies palpitations and Denies dyspnea Resp Denies cough, Denies excessive phlegm production and Denies dyspnea GI Reports as per HPI, Reports abdominal pain, Denies bloating, Denies change in bowel habits, Denies constipation, Denies heartburn, Denies diarrhea, Denies nausea and Denies vomiting Denies difficulty urinating and Denies urinary frequency Musc Denies back pain, Denies muscle weakness and Denies numbness Skin/Breast Denies changing lesions and Denies unusual bruising Neuro Denies headache(s), Denies numbness, Denies paresthesias and Denies weakness Psych Denies anxiety and Denies depression Endo Denies palpitations Oneil/Lymph Denies lymphadenopathy Physical Exam Vital Signs: Last Vital Signs Pulse 66 05/07/23 13:03 Resp 14 05/07/23 13:03 BP 126/66 05/07/23 13:03 Pulse Ox 96 05/07/23 13:03 Oxygen Delivery Method Room Air 05/07/23 13:03 BMI result Body Mass Index 23.0 Const General: cooperative, healthy appearing, comfortable, no acute distress, well developed and alert Orientation/consciousness: patient oriented x3 HEENT Head: Yes normal to inspection, Yes normocephalic and Yes atraumatic Eyes General: appearance normal, both eyes and all related structures Resp Effort & Inspection: normal respiratory effort and able to speak in complete sentences Skin Lesions: no lesions Rashes: no rashes Neuro General: patient oriented x3 Extrem Other: Right hip: Normal to inspection. He has no pain with ROM of hip. No pain with hip flexion. No pain with hip ABDuction however there is discomfort with ADDuction of hip against resistance. He has mild discomfort with palpation along the iliopsoas and discomfort with SLR in the groin region. He has full ROM of knee without pain. Obvious hyperalgesia and allodynia in the projection of the anterior lateral surface of the right anterior lateral thigh. Assessment & Plan Assessment & Plan (1) Right groin pain: Code(s): R10.31 - Right lower quadrant pain Plan No definite hernia noted by CT, however questionable ligamentous injury by ultrasound. Surgery denied operation on hernia for this patient, orthopedic surgery send him for MRI of the hip joint. I offered him today diagnostic right femoral nerve block to cover presumable anterior lateral hip area. Because of the his hyperalgesia I will do this procedure under sedation. Ilioinguinal nerve is not under my immediate consideration because he does not report pain in the scrotal area on the right, however in the future ilioinguinal nerve block could be considered as well. Iliohypogastric nerve also could be considered however it is distribution is slightly higher than the groin pain patient experiences and iliohypogastric nerve unlikely will get pain distribution on the anterolateral surface of the thigh. Patient Instructions: I here by testify that I spent 45 minutes in conversation with this patient as well as evaluation of his prior records, planning his care and organizing this note. Coding Level of Care Code New Pt Level 4 (95828) Diagnoses Right groin pain R10.31
[2023-05-07 13:03] VITALS: BP 126/66; PULSE 66; RESP 14; O2SAT 96; BMI 23.0
== END 2023-05-07 13:31 | disposition home or self-care (01) ==
PROVIDERS: PCP Family Medicine; Referring Provider Family Medicine; Visit Provider Anesthesiology
DX: R10.31 Right lower quadrant pain (principal)
CPT/HCPCS: 99204

== ENCOUNTER → 2023-05-07 11:41 | Outpatient (BNVA) | payer MEDICAID, SELFPAY | PROVIDERS: PCP Family Medicine; Referring Provider Family Medicine; Visit Provider Anesthesiology | DX: R10.31 Right lower quadrant pain (principal) | CPT/HCPCS: 99202 ==

== ENCOUNTER → 2023-05-29 06:33 | Day surgery (SDC) | payer MEDICAID, SELFPAY | PROVIDERS: PCP Family Medicine; Visit Provider Anesthesiology | DX: R10.31 Right lower quadrant pain (principal); Z53.20 Procedure and treatment not carried out because of patient's decision for unspecified reasons ==

== ENCOUNTER 2023-06-22 13:25 | Outpatient (AMB) | payer MEDICAID, SELFPAY ==
--- NOTE | 2023-06-22 13:27 | A.OFFVIS_ITS ---
Intake Vital Signs 06/22/23 13:32 Height 5 ft 5 in Weight 130 lb BMI 21.6 BP 128/82 Blood Pressure Location Lt brachial Position Sitting Respiration 14 Pulse 80 Pulse Source Pulse Oximeter Pulse Oximetry (%) 99 Oxygen Delivery Method Room Air Intake Visit Reasons: PROCEDURE DISCUSSION Intake Note: Patient comes in to discuss procedure. Reports pain 6/10. Allergies NSAIDS (Non-Steroidal Anti-Inflamma Allergy (Severe, Verified 06/22/23 13:32) Unknown aspirin [ASA] Allergy (Unknown, Verified 06/22/23 13:32) Unknown but cannot take naproxen [NAPROXEN] Allergy (Unknown, Verified 06/22/23 13:32) ABDOMINAL PAIN, ABD PAIN Penicillins [PENICILLINS] Allergy (Unknown, Verified 06/22/23 13:32) Rash tuberculin, purified protein deriva [TB TEST] Allergy (Unknown, Verified 06/22/23 13:32) Unknown acetaminophen [From TYLENOL] Adverse Reaction (Unknown, Verified 06/22/23 13:32) Abdominal Pain mesalamine [From ASACOL] Adverse Reaction (Unknown, Verified 06/22/23 13:32) Abdominal Pain pseudoephedrine [From SUDAFED] Adverse Reaction (Unknown, Verified 06/22/23 13:32) Abdominal Pain ibuprofen [From Motrin] Adverse Reaction (Verified 06/22/23 13:32) Abdominal Pain HPI HPI Comments History of Present Illness Details Manuel is back in my office and also of the MRI recently done on his pelvis became available to me. It looks like that he has severe osteoarthritis of the right hip. Her pain alone could be explain by the presence of the osteoarthritis. I offered him to perform diagnostic as well as therapeutic right hip steroid injection. Before the procedure I need to test his PT, INR, APTT, CBC. He was told prior that his platelets are low. I will schedule him for the injection as above under sedation. Prior: 62 years old gentleman who allegedly was incarcerated for the past 5 years and recently got out of the jail who came today my office with complains on pain in the area of the right groin with radiation into the anterior lateral surface of the thigh to the level of the knee but not below that level. In the past he was evaluated by general surgeon Dr. Cary and inguinal hernia was ruled out after the CT scan. CT scan also did not demonstrate any changes in the right hip joint. Dr. Cary's note states that he most likely received a rupture of the ligament in the right thigh. The conclusion was made after the ultrasound of the right groin area. He can not sleep because of his pain he can not do activities of daily living he can not take care of himself but he can not function normally. He is on permanent disability. He is self mobile. In terms of tissue damage he reports his pain is pulsing throbbing stabbing sharp pulling hurting aching sickening suffocating and tearing sensation. He had physical therapy for lower back pain but never for this condition. He never had any injections. His past medical history significant for hypertension hepatitis-C and liver cirrhosis stage III. He also has enlarged prostate. His past surgical history significant for glaucoma surgery right ear surgery x3 , ventral abdominal hernia, and gallbladder surgery. His past social history he is di sabled individual, she denies smoking cigarettes he states that he stopped it 6 years ago he denies drinking alcohol admits stopping drinking 20 years ago he denies recreational drugs which he is stated he is stopped 20 years ago. Currently primary care physician prescribed him oxycodone 5 mg every 4-6 hours p.r.n. pain. [facility] Medical History (Updated 06/22/23 @ 13:57 by Demarcus Shukla MD) Thrombocytopenia Afib Glaucoma Hypertension Anxiety Depression Cirrhosis Surgical History History of tooth extraction History of cardiac catheterization History of ear surgery History of cholecystectomy H/O abdominal surgery S/P LASIK surgery of both eyes Family History Mother Breast cancer Rheumatoid arthritis Social History Household Members: Friend(s) Housing: House Are you a primary career based intervention coordinator to a significant other at home: No Do you presently have visiting nurse or other home services: No Patient Tobacco Use Status: Never used Tobacco Second Hand Smoke Exposure: Yes Substance Use Type: Marijuana service: No Current occupational status: disabled Review of Systems Const All systems reviewed & are unremarkable except as noted in HPI and below Physical Exam Vital Signs: Last Vital Signs Pulse 80 06/22/23 13:32 Resp 14 06/22/23 13:32 BP 128/82 06/22/23 13:32 Pulse Ox 99 06/22/23 13:32 Oxygen Delivery Method Room Air 06/22/23 13:32 BMI result Body Mass Index 21.6 Const General: cooperative, healthy appearing, comfortable, no acute distress, well developed and alert Orientation/consciousness: patient oriented x3 HEENT Head: Yes normal to inspection, Yes normocephalic and Yes atraumatic Eyes General: appearance normal, both eyes and all related structures Resp Effort & Inspection: normal respiratory effort and able to speak in complete sentences Skin Lesions: no lesions Rashes: no rashes Neuro General: patient oriented x3 Extrem Other: Right hip: Normal to inspection. He has no pain with ROM of hip. No pain with hip flexion. No pain with hip ABDuction however there is discomfort with ADDuction of hip against resistance. He has mild discomfort with palpation along the iliopsoas and discomfort with SLR in the groin region. He has full ROM of knee without pain. Obvious hyperalgesia and allodynia in the projection of the anterior lateral surface of the right anterior lateral thigh. Assessment & Plan Assessment & Plan (1) Right groin pain: Code(s): R10.31 - Right lower quadrant pain (2) Liver cirrhosis: Code(s): K74.60 - Unspecified cirrhosis of liver Plan No definite hernia noted by CT, however questionable ligamentous injury by ultrasound. Surgery denied operation on hernia for this patient, orthopedic surgery send him for MRI of the hip joint. Diagnostic femoral nerve block was offered to the patient prior however today my attention was attracted to MRI of the pelvis were severe hip arthritis was demonstrated. I was planning to do femoral nerve block, some considerations for ilioinguinal nerve block or iliohypogastric nerve block, nevertheless at this time I am more inclined to try intra-articular right hip steroid injection into the patient's right hip. Before the procedure because he is suffering from liver cirrhosis and because he is was told that his platelets level low I need to schedule CBC, APTT, PTT INR, he wants procedure to be done under sedation because of his hyperalgesia in the right groin. I will schedule him for the procedure under sedation. Ilioinguinal nerve is not under my immediate consideration because he does not report pain in the scrotal area on the right, however in the future ilioinguinal nerve block could be considered as well. Iliohypogastric nerve also could be considered however it is distribution is slightly higher than the groin pain patient experiences and iliohypogastric nerve unlikely will get pain distribution on the anterolateral surface of the thigh. Orders: Orders Complete Blood Count Auto Diff Today K74.60 - Unspecified cirrhosis of liver, R10.31 - Right lower quadrant pain Mixing Study (PT/PTT) Today K74.60 - Unspecified cirrhosis of liver, R10.31 - Right lower quadrant pain Prothrombin Time INR Today K74.60 - Unspecified cirrhosis of liver Patient Instructions: I here by testify that I spent 39 minutes in conversation with this patient as well as evaluating his prior study on prior records as well as organizing this n ote. Coding Level of Care Code Est Pt Level 4 (28556) Diagnoses Right groin pain R10.31 Liver cirrhosis K74.60
[2023-06-22 13:32] VITALS: BP 128/82; PULSE 80; RESP 14; O2SAT 99; BMI 21.6
== END 2023-06-22 13:56 | disposition home or self-care (01) ==
PROVIDERS: PCP Family Medicine; Visit Provider Anesthesiology
DX: R10.31 Right lower quadrant pain (principal); K74.60 Unspecified cirrhosis of liver; M25.551 Pain in right hip; M16.11 Unilateral primary osteoarthritis, right hip
CPT/HCPCS: 99214

== ENCOUNTER → 2023-06-22 13:25 | Outpatient (BNVA) | payer MEDICAID, SELFPAY | PROVIDERS: PCP Family Medicine; Visit Provider Anesthesiology | DX: K74.60 Unspecified cirrhosis of liver (principal); R10.31 Right lower quadrant pain | CPT/HCPCS: 99212 ==

== ENCOUNTER 2023-06-23 15:34 | Outpatient (REF) | payer MEDICAID, SELFPAY ==
[2023-06-23 18:14] LABS: Prothrombin Time 12.5 SEC (11.1-13.3)
[2023-06-23 18:20] LABS: Imm Gran Abs Auto 0.02 X10*3/uL (0.00-0.03); Imm Gran Pct Auto 0.4 % (0.0-0.4); MANUAL DIFF FLAG SCAN; PLT CLUMP 1; Red Cell Distribution Width 12.3 % (11.0-16.0); SCAN SMEAR FLAG 1
[2023-06-23 18:22] LABS: Basophils Percent Auto 0.4 % (0-2); Eosinophils Absolute Auto 0.3 X10*3/uL (0.0-0.4); Eosinophils Percent Auto 5.7 % (0-4); Hematocrit 39.4 % (42.0-52.0); Hemoglobin 14.1 g/dl (14.0-18.0); Lymphocytes Absolute Auto 1.3 X10*3/uL (1.2-4.9); Lymphocytes Percent Auto 24.4 % (20-40); Mean Corpuscular HGB Conc 35.8 g/dl (31.0-36.0); Mean Corpuscular Hemoglobin 31.6 pg (27.0-33.0); Mean Corpuscular Volume 88.3 fL (80.0-98.0); Mean Platelet Volume 10.6 fL (9.4-12.4); Monocytes Absolute Auto 0.8 X10*3/uL (0.1-1.2); Monocytes Percent Auto 14.4 % (2-11); Neutrophils Percent Auto 54.7 % (45-73); Red Blood Count 4.46 X10*6/uL (4.60-5.80)
[2023-06-23 18:31] LABS: White Blood Count 5.4 X10*3/uL (4.8-10.8)
[2023-06-23 18:32] LABS: Platelet Count 132 X10*3/uL (160-400)
[2023-06-23 18:54] LABS: Blood Urea Nitrogen 18 mg/dL (9-16); Estimated Glomerular Filt Rate > 60
[2023-06-23 19:24] LABS: SLIDE REVIEW VERIFIED
[2023-06-30 23:09] LABS: Mixing Study - PT 11.8 sec (9.0-11.5); PTT LA 39 sec (< OR = 40)
== END 2023-06-23 15:35 | disposition home or self-care (01) ==
LOC: HO.CHCLDS 15:34
PROVIDERS: Referring Provider Otolaryngology; Visit Provider Anesthesiology
DX: R10.31 Right lower quadrant pain (principal); K74.60 Unspecified cirrhosis of liver; Z01.818 Encounter for other preprocedural examination
CPT/HCPCS: 36415; 82565; 84520; 85025; 85610; 85611; 85732

== ENCOUNTER 2023-07-13 12:24 | Outpatient (AMB) | payer MEDICAID, SELFPAY ==
--- NOTE | 2023-07-13 12:32 | A.OFFVIS_ITS ---
Vital Signs 07/13/23 12:34 Height 5 ft 5 in Weight 134 lb BMI 22.3 Intake Visit Reasons: OV- Right lower quadrant pain-follow up Intake Note: Manuel a 62 year old male presents today for evaluation of right groin pain that began about 10 years ago. Previously practiced martial arts. Denies injuries to the area. Reports pain remains the same as it was during last visit. 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 Accompanied by: Self / Same As Patient Allergies NSAIDS (Non-Steroidal Anti-Inflamma Allergy (Severe, Verified 07/13/23 12:36) Unknown aspirin [ASA] Allergy (Unknown, Verified 07/13/23 12:36) Unknown but cannot take naproxen [NAPROXEN] Allergy (Unknown, Verified 07/13/23 12:36) ABDOMINAL PAIN, ABD PAIN Penicillins [PENICILLINS] Allergy (Unknown, Verified 07/13/23 12:36) Rash tuberculin, purified protein deriva [TB TEST] Allergy (Unknown, Verified 07/13/23 12:36) Unknown acetaminophen [From TYLENOL] Adverse Reaction (Unknown, Verified 07/13/23 12:36) Abdominal Pain mesalamine [From ASACOL] Adverse Reaction (Unknown, Verified 07/13/23 12:36) Abdominal Pain pseudoephedrine [From SUDAFED] Adverse Reaction (Unknown, Verified 07/13/23 12:36) Abdominal Pain ibuprofen [From Motrin] Adverse Reaction (Verified 07/13/23 12:36) Abdominal Pain HPI HPI OV- Right lower quadrant pain-follow up: Details: 62-year-old male who returns to the office today for a follow-up of Rt hip ain for about 10 years. He continues to have the same pain since his last visit. He also c/o occasional locking and catching in his hip. The pain is located around the groin which he feels radiate down the thigh. He has not had any injury in the past. [facility] Medical History (Updated 07/13/23 @ 18:29 by Magnus Baltazar PA-C) Thrombocytopenia Afib Glaucoma Hypertension Anxiety Depression Cirrhosis Surgical History History of tooth extraction History of cardiac catheterization History of ear surgery History of cholecystectomy H/O abdominal surgery S/P LASIK surgery of both eyes Family History Mother Breast cancer Rheumatoid arthritis Social History Household Members: Friend(s) Housing: House Are you a primary caregivers non medical to a significant other at home: No Do you presently have visiting nurse or other home services: No Patient Tobacco Use Status: Never used Tobacco Second Hand Smoke Exposure: Yes Substance Use Type: Marijuana service: No Current occupational status: disabled Review of Systems Const All systems reviewed & are unremarkable except as noted in HPI and below Physical Exam Vital Signs: BMI result Body Mass Index 22.3 Extrem Other: Right hip: Normal to inspection, ambulates with a slight limp. Has mild discomfort with internal and extension rotation of hip. No significant stiffness. Mild discomfort with hip flexion against resistance. NVI. Results Reviewed Results Reviewed: MR pelvis wo con 04/06/23 IMPRESSION: 1. Asymmetric marked loss of superior right hip joint space with subarticular cystic erosions in the right acetabulum. This could represent osteoarthritis. 2. No evidence of inguinal hernia or muscle tear could be seen. Xrays were obtained in the office today and personally reviewed by me of the right hip show mild oa with pistol deformity Assessment & Plan Assessment & Plan (1) Osteoarthritis of right hip: Code(s): M16.11 - Unilateral primary osteoarthritis, right hip Category: Medical Qualifiers: Osteoarthritis type: primary Qualified Code(s): M16.11 - Unilateral primary osteoarthritis, right hip Plan We discussed options which include conservative vs surgical intervention. I did explain the benefits of having a KAL given the discomfort and origin of his pain. I did encourage him to make an appointment with Dr. Hendrix to discuss this further. He is content with this plan. Orders: Orders XR hip RT min 2V Today M25.551 - Pain in right hip Patient Instructions: Scribed for Magnus Baltazar PA-C, by Calr Weaver medical translator, on 07/13/2023 at 12:30 PM Magnus WORLEY PA-C, have personally reviewed and agree with the information entered by the scribe. Coding Level of Care Code Est Pt Level 3 (86220) Diagnoses Primary osteoarthritis of right hip M16.11 Osteoarthritis type: primary
[2023-07-13 12:34] VITALS: BMI 22.3
== END 2023-07-13 13:03 | disposition home or self-care (01) ==
PROVIDERS: PCP Family Medicine; Visit Provider Physician Assistant
DX: M16.11 Unilateral primary osteoarthritis, right hip (principal)
CPT/HCPCS: 99213

== ENCOUNTER 2023-07-13 12:24 | Outpatient (REF) | payer MEDICAID, SELFPAY ==
--- NOTE | ~2023-07-13 | XR_ITS ---
EXAMINATION: XR HIP, RIGHT CLINICAL INFORMATION: Right hip pain COMPARISON: MRI from 04/06/2023 TECHNIQUE: Two views of the right hip. FINDINGS: No fracture. Alignment is anatomic. Hip joint space is maintained. Soft tissues are unremarkable. XR/XR hip RT min 2V IMPRESSION: Normal right hip.
== END 2023-07-13 12:25 | disposition home or self-care (01) ==
LOC: HO.HOSX 12:24
PROVIDERS: PCP Family Medicine; Visit Provider Physician Assistant
DX: M16.11 Unilateral primary osteoarthritis, right hip (principal); R10.31 Right lower quadrant pain
CPT/HCPCS: 73502; 99212

== ENCOUNTER 2023-07-30 11:37 | Outpatient (AMB) | payer MEDICAID, SELFPAY ==
--- NOTE | 2023-07-30 12:12 | MHC.OFFVIS ---
Intake Visit Reasons: OV-eval Rt hip Oa discuss KAL Intake Note: Manuel is a 63 year old male who presents today for a for a follow up of his Right Hip OA. He was last seen with Magnus who referred him to [facility] for discussion of non surgical vs surgical intervention, Right KAL. Patient is taking Percocet but her only takes this at night as he is worried about forming an addiction Allergies NSAIDS (Non-Steroidal Anti-Inflamma Allergy (Severe, Verified 07/30/23 12:22) Unknown aspirin [ASA] Allergy (Unknown, Verified 07/30/23 12:22) Unknown but cannot take naproxen [NAPROXEN] Allergy (Unknown, Verified 07/30/23 12:22) ABDOMINAL PAIN, ABD PAIN Penicillins [PENICILLINS] Allergy (Unknown, Verified 07/30/23 12:22) Rash tuberculin, purified protein deriva [TB TEST] Allergy (Unknown, Verified 07/30/23 12:22) Unknown acetaminophen [From TYLENOL] Adverse Reaction (Unknown, Verified 07/30/23 12:22) Abdominal Pain mesalamine [From ASACOL] Adverse Reaction (Unknown, Verified 07/30/23 12:22) Abdominal Pain pseudoephedrine [From SUDAFED] Adverse Reaction (Unknown, Verified 07/30/23 12:22) Abdominal Pain ibuprofen [From Motrin] Adverse Reaction (Verified 07/30/23 12:22) Abdominal Pain HPI HPI OV-eval Rt hip Oa discuss KAL: Details: Manuel is a 63 year old male who presents today for a for a follow up of his Right Hip OA. He was last seen with Magnus who referred him to [facility] for discussion of non surgical vs surgical intervention, Right KAL. He describes pain getting into and out of a car and standing from a seated position. The pain localizes to his groin. He describes difficulty getting through his day without pain. He feels quality of his life is diminished. Patient is taking Percocet but her only takes this at night as he is worried about forming an addiction [facility] Medical History (Updated 07/13/23 @ 18:29 by Magnus Baltazar PA-C) Thrombocytopenia Afib Glaucoma Hypertension Anxiety Depression Cirrhosis Surgical History History of tooth extraction History of cardiac catheterization History of ear surgery History of cholecystectomy H/O abdominal surgery S/P LASIK surgery of both eyes Family History Mother Breast cancer Rheumatoid arthritis Social History Household Members: Friend(s) Housing: House Are you a primary child care education coordinator to a significant other at home: No Do you presently have visiting nurse or other home services: No Patient Tobacco Use Status: Never used Tobacco Second Hand Smoke Exposure: Yes Substance Use Type: Marijuana service: No Current occupational status: disabled Physical Exam Const General: cooperative, healthy appearing, no acute distress, well developed and alert HEENT Head: Yes normal to inspection, Yes normocephalic and Yes atraumatic Mouth: moist mucous membranes Eyes General: appearance normal, both eyes and all related structures EOM: EOMs intact bilaterally Chest Other: no audible wheezing. Resp Other: No audible wheezing Effort & Inspection: normal respiratory effort Back/Spine/Pelvis Cervical Spine: normal cervical lordosis Skin General skin exam: no rashes or lesions noted Neuro General: no focal motor deficits Extrem Other: Right hip with positive impingement test and positive Stinchfield. He has severely limited internal rotation and walks with gait antalgia. Psych Appearance: grossly normal and well kempt Mental Status: mental status grossly normal Speech and movement: Normal speech and movement present Affect: normal affect Attitude: cooperative Results Reviewed Results Reviewed: I personally reviewed relevant radiographs. Mild right hip osteoarthritis with cam deformity I personally reviewed the MR images. .1 Asymmetric marked loss of superior right hip joint space with subarticular cystic erosions in the right acetabulum. Assessment & Plan Assessment & Plan (1) Osteoarthritis of right hip: Code(s): M16.11 - Unilateral primary osteoarthritis, right hip Category: Medical Qualifiers: Osteoarthritis type: primary Qualified Code(s): M16.11 - Unilateral primary osteoarthritis, right hip Plan: This is a 63-year-old gentleman with right hip pain and osteoarthritis. His MRI shows cystic erosions in the right acetabulum at this is responsible for his pain. I discussed treatment options with him ranging from nothing to hip replacement. At this time we elected to proceed forward with a hip injection of his right hip. He will see me back in approximately 3 months. Hip injection was ordered with pain management. Orders: Referrals Pain Management Referral M16.11 - Unilateral primary osteoarthritis, right hip Coding Level of Care Code Est Pt Level 4 (42499) Diagnoses Primary osteoarthritis of right hip M16.11 Osteoarthritis type: primary
== END 2023-07-30 12:49 | disposition home or self-care (01) ==
PROVIDERS: PCP Family Medicine; Referring Provider Family Medicine; Visit Provider Orthopaedic Surgery
DX: M16.11 Unilateral primary osteoarthritis, right hip (principal)
CPT/HCPCS: 99213

== ENCOUNTER → 2023-07-30 11:37 | Outpatient (BNVA) | payer MEDICAID, SELFPAY | PROVIDERS: PCP Family Medicine; Visit Provider Orthopaedic Surgery | DX: M16.11 Unilateral primary osteoarthritis, right hip (principal) | CPT/HCPCS: 99212 ==

== ENCOUNTER 2023-09-08 06:23 | Outpatient (REF) | payer MEDICAID, SELFPAY ==
--- NOTE | ~2023-09-08 | FL_ITS ---
EXAMINATION: XR FLUOROSCOPY WITH IMAGES CLINICAL INFORMATION: Right hip osteoarthritis. COMPARISON: None available. TECHNIQUE: Fluoroscopy Supervised By: Dr. Demarcus Shukla. Fluoroscopy Time: 8.9 seconds. Cumulative Dose: 2.4400 mGy. DAP: 1.0614 Gycm2. Images: 1. FINDINGS: Intraoperative fluoroscopy and spot films were performed during a procedure in the OR. A needle is present in the right hip joint with intra-articular contrast. Please correlate with Dr. Demarcus Shukla's report for complete details. FL/FL guidance in treatment room IMPRESSION: Intraoperative fluoroscopy and spot films were obtained. Please see Dr. Demarcus Shukla's report for complete details.
== END 2023-09-08 06:24 | disposition home or self-care (01) ==
LOC: CF 06:23
PROVIDERS: Visit Provider Anesthesiology
DX: M16.11 Unilateral primary osteoarthritis, right hip (principal)
CPT/HCPCS: 20610; J2795; J3301; Q9967

== ENCOUNTER 2023-09-08 13:55 | Outpatient (AMB) | payer MEDICAID, SELFPAY ==
--- NOTE | 2023-09-08 14:05 | A.OFFVIS_ITS ---
Vital Signs 09/08/23 14:11 09/08/23 15:10 Height 5 ft 5 in 5 ft 5 in Weight 134 lb 134 lb BMI 22.3 22.3 BP 132/88 128/74 Blood Pressure Location Lt brachial Lt brachial Position Sitting Sitting Respiration 14 14 Pulse 70 60 Pulse Source Pulse Oximeter Pulse Oximeter Pulse Oximetry (%) 98 98 Oxygen Delivery Method Room Air Room Air Comment pre-op post-op Intake Visit Reasons: RIGHT HIP INJECTION/ATIVAN REQUESTED Allergies NSAIDS (Non-Steroidal Anti-Inflamma Allergy (Severe, Verified 09/08/23 14:06) Unknown aspirin [ASA] Allergy (Unknown, Verified 09/08/23 14:06) Unknown but cannot take naproxen [NAPROXEN] Allergy (Unknown, Verified 09/08/23 14:06) ABDOMINAL PAIN, ABD PAIN Penicillins [PENICILLINS] Allergy (Unknown, Verified 09/08/23 14:06) Rash tuberculin, purified protein deriva [TB TEST] Allergy (Unknown, Verified 09/08/23 14:06) Unknown acetaminophen [From TYLENOL] Adverse Reaction (Unknown, Verified 09/08/23 14:06) Abdominal Pain mesalamine [From ASACOL] Adverse Reaction (Unknown, Verified 09/08/23 14:06) Abdominal Pain pseudoephedrine [From SUDAFED] Adverse Reaction (Unknown, Verified 09/08/23 14:06) Abdominal Pain ibuprofen [From Motrin] Adverse Reaction (Verified 09/08/23 14:06) Abdominal Pain PFSH Medical History (Updated 07/13/23 @ 18:29 by Magnus Baltazar PA-C) Thrombocytopenia Afib Glaucoma Hypertension Anxiety Depression Cirrhosis Surgical History History of tooth extraction History of cardiac catheterization History of ear surgery History of cholecystectomy H/O abdominal surgery S/P LASIK surgery of both eyes Family History Mother Breast cancer Rheumatoid arthritis Social History Household Members: Friend(s) Housing: House Are you a primary career center advisor to a significant other at home: No Do you presently have visiting nurse or other home services: No Patient Tobacco Use Status: Never used Tobacco Second Hand Smoke Exposure: Yes Substance Use Type: Marijuana service: No Current occupational status: disabled Physical Exam Vital Signs: Last Vital Signs Pulse 60 09/08/23 15:10 Resp 14 09/08/23 15:10 BP 128/74 09/08/23 15:10 Pulse Ox 98 09/08/23 15:10 Oxygen Delivery Method Room Air 09/08/23 15:10 BMI result Body Mass Index 22.3 Assessment & Plan Assessment & Plan (1) Osteoarthritis of right hip: Code(s): M16.11 - Unilateral primary osteoarthritis, right hip Category: Medical Qualifiers: Osteoarthritis type: primary Qualified Code(s): M16.11 - Unilateral primary osteoarthritis, right hip Plan: This is a 63-year-old gentleman with right hip pain and osteoarthritis. His MRI shows cystic erosions in the right acetabulum at this is responsible for his pain. I discussed treatment options with him ranging from nothing to hip replacement. At this time we elected to proceed forward with a hip injection of his right hip. He will see me back in approximately 3 months. Hip injection was ordered with pain management. Plan Right hip steroid injection. Informed consent was explained to the patient. All questions were explained and answered. The patient was taken inside of the operating room where he was positioned left lateral decubitus on operating table.. Time-out was performed delineating patient's name and date of , correct site, side, the nature of the procedure, patient's allergy, preoperative antibiotic if needed, need for DVT prophylaxis.. All operating room staff was participating in OR time-out procedure. Right hip area of the patient was prepped with ChloraPrep and draped with sterile towels. C-arm was brought over the operating field and picture of left and right lateral views of the bilateral hip joints were delineated on the screen. The smaller joint silhouette was chosen as the target. Projection of the right trochanter to the skin was chosen as the initial needle insertion point. After that the skin and subcutaneous tissues was anesthetized with 2% lidocaine 2.5 mL. 22 gauge 5 in long needle was inserted through the skin and started to advance to the joint space under intermittent lateral and anterior posterior views. When needle entered the capsule of the joint small amount of the contrast was injected delineating intra-articular space. After that treatment solution containing 4 mL of ropivacaine 0.5% and 40 mg of Kenalog was injected into the joint. The needle was withdrawn sterile dressing was applied.The patient tolerated procedure well Orders: Orders FL guidance in treatment room 09/08/23 M16.11 - Unilateral primary osteoarthritis, right hip Medications: New lorazepam (Ativan) Take 30 minutes prior to arrival to procedure 1 mg PO ONCE 1 tab 0RF anxiety Coding Level of Care Code Procedure Only Diagnoses Primary osteoarthritis of right hip M16.11 Osteoarthritis type: primary
[2023-09-08 14:11] VITALS: BP 132/88; PULSE 70; RESP 14; O2SAT 98; BMI 22.3
[2023-09-08 15:10] VITALS: BP 128/74; PULSE 60; RESP 14; O2SAT 98; BMI 22.3
--- OUTSIDE RECORDS SUMMARY | 2023-09-10 08:03 | XMS_ITS | Continuity of Care Document ---
Author Organization [facility] ter Address [address] [place] [id number]- Care Team Providers Care Can Maker Name Role Phone Not on Staff, PCP Primary Care Physician Unavail able Encounter [facility] [place] Date(s): 07/13/23 - 08/26/[address] [id number] [[email or web address]] Attending Physician: Juan Brooks MD Admitting Physician: Juan Brooks MD Referring Physician: Juan Brooks MD Allergies, Adverse Reactions, Alerts Substance Reaction Severity Status ibuprofen Active penicillin hives Active Cordran Tape rash Active Aleve Active Tylenol Active Sudafed Active Medications chantix 1mg tablet 1 tablet = 1 mg, By Mouth, Daily, # 84 tablet, 1 Refills, Maintenance, 02/07/14 13:52:13, 1 tablet By Mouth Daily,x12 week(s) Start Date: 02/07/14 Stop Date: 07/25/14 Status: Ordered Chantix Starter Pack 0.5 mg-1 mg oral tablet 1 tablet, By Mouth, 2 times a day, as directed on package labeling, # 53 tablet, 0 Refills, Maintenance, 12/21/13 17:03:29, Tablet, 1 tablet By Mouth 2 times a day,Instr:as directed on package labeling Start Date: 12/21/13 Status: Ordered chlorpromazine 50 mg oral tablet 1 tablet = 50 mg, By Mouth, 4 times a day, # 120 tablet, 0 Refills, Maintenance, 09/15/13 10:33:00,1 tablet By Mouth 4 times a day Start Date: 09/15/13 Status: Ordered Klonopin 0.5 mg oral tablet 1 tablet = 0.5 mg, By Mouth, 2 times a day, 0 Refills, Maintenance, 08/30/13 12:40:22, Tablet Start Date: 08/30/13 Status: Ordered Zyprexa 10 mg oral tablet 1 tablet = 10 mg, By Mouth, Daily, # 30 tablet, 0 Refills, Maintenance, 08/30/13 12:40:05, Tablet Start Date: 08/30/13 Status: Ordered Problem List Condition Confirmation Course Effective Dates Status Health [facility] Informant Alcoholic pancreatitis Confirmed Active Alcoholic cirrhosis of liver Confirmed Active Chronic hepatitis C Confirmed Active Chronic low back pain Confirmed Active Generalized anxiety disorder Confirmed Active PHT - Portal hypertension Confirmed Active Social History Social History Type Response Smoking Status Former smoker; Other : Quit 6 weeks ago; entered on: 11/25/13 Sex Patient Care team information Care Team Personnel Name: Not on Staff, PCP Position: S Physician (General Medicine) Member Role: PCP Care Team Related Persons Name: EH DWYER Address: home [address] [place] [id number] Name: PAPITO EPSTEIN
== END 2023-09-08 14:31 | disposition home or self-care (01) ==
LOC: HO.PMCPRC 13:55
PROVIDERS: PCP Family Medicine; Visit Provider Anesthesiology
DX: M16.11 Unilateral primary osteoarthritis, right hip (principal)
CPT/HCPCS: 20610; 77002

== ENCOUNTER 2023-10-05 13:09 | Outpatient (AMB) | payer MEDICAID, SELFPAY ==
--- NOTE | 2023-10-05 13:11 | A.OFFVIS_ITS ---
Vital Signs 10/05/23 13:18 Height 5 ft 5 in Weight 134 lb BMI 22.3 BP 140/76 H Blood Pressure Location Lt brachial Position Sitting Respiration 16 Pulse 76 Pulse Source Pulse Oximeter Pulse Oximetry (%) 98 Oxygen Delivery Method Room Air Intake Visit Reasons: RIGHT HIP INJECTION 08/06/23 Intake Note: Patient comes in for post-op appointment. Reports pain 09/22. Allergies NSAIDS (Non-Steroidal Anti-Inflamma Allergy (Severe, Verified 10/05/23 13:18) Unknown aspirin [ASA] Allergy (Unknown, Verified 10/05/23 13:18) Unknown but cannot take naproxen [NAPROXEN] Allergy (Unknown, Verified 10/05/23 13:18) ABDOMINAL PAIN, ABD PAIN Penicillins [PENICILLINS] Allergy (Unknown, Verified 10/05/23 13:18) Rash tuberculin, purified protein deriva [TB TEST] Allergy (Unknown, Verified 10/05/23 13:18) Unknown acetaminophen [From TYLENOL] Adverse Reaction (Unknown, Verified 10/05/23 13:18) Abdominal Pain mesalamine [From ASACOL] Adverse Reaction (Unknown, Verified 10/05/23 13:18) Abdominal Pain pseudoephedrine [From SUDAFED] Adverse Reaction (Unknown, Verified 10/05/23 13:18) Abdominal Pain ibuprofen [From Motrin] Adverse Reaction (Verified 10/05/23 13:18) Abdominal Pain HPI Comments Details: Manuel is back in my office after diagnostic and therapeutic right hip joint injection. He reported no pain improvement after the injection. He reported that the only pain he felt relieved is in the projection of the right trochanter. His pain in the groin as well as pain in the right lower back as well as pain in the medial side of the thigh remained unchanged after the injection. He was expressing concerns today about vascular bed involvement into his pain syndrome. I did not examination as dictated below. I did not find any vascular involvement. He reported today that in the past some of the orthopedic surgery associates told him that he might have suffered from muscle rupture from the bone on the right thigh. He was asking also me if the MRI of the lumbar spine can be done to rule out any lumbar spine involvement into this procedure. I will send him for the MRI of the lumbar spine to rule out the red flags in the lumbar spine being potential pain generators. CT scan of abdomen and pelvis is negative for abdominal or pelvic pathology, there is no evidence of hernia on the CT scan. MRI of the pelvis demonstrated severe osteoarthritis of the right hip. Her pain alone could be explain by the presence of the osteoarthritis. I offered him to perform diagnostic as well as therapeutic right hip steroid injection. His platelets count is low, however last time on 06/23/2023 it was equal to [id number]. Prior: 62 years old gentleman who allegedly was incarcerated for the past 5 years and recently got out of the nursing home who came today my office with complains on pain in the area of the right groin with radiation into the anterior lateral surface of the thigh to the level of the knee but not below that level. In the past he was evaluated by general surgeon Dr. Cary and inguinal hernia was ruled out after the CT scan. CT scan also did not demonstrate any changes in the right hip joint. Dr. Cary's note states that he most likely received a rupture of the ligament in the right thigh. The conclusion was made after the ultrasound of the right groin area. He can not sleep because of his pain he can not do activities of daily living he can not take care of himself but he can not function normally. He is on permanent disability. He is self mobile. In terms of tissue damage he reports his pain is pulsing throbbing stabbing sharp pulling hurting aching sickening suffocating and tearing sensation. He had physical therapy for lower back pain but never for this condition. He never had any injections. His past medical history significant for hypertension hepatitis-C and liver cirrhosis stage III. He also has enlarged prostate. His past surgical history significant for glaucoma surgery right ear surgery x3 , ventral abdominal hernia, and gallbladder surgery. His past social history he is disabled individual, she denies smoking cigarettes he states that he stopped it 6 years ago he denies drinking alcohol admits stopping drinking 20 years ago he denies recreational drugs which he is stated he is stopped 20 years ago. Currently primary care physician prescribed him oxycodone 5 mg every 4-6 hours p.r.n. pain. [facility] Medical History (Updated 07/13/23 @ 18:29 by Magnus Baltazar PA-C) Thrombocytopenia Afib Glaucoma Hypertension Anxiety Depression Cirrhosis Surgical History History of tooth extraction History of cardiac catheterization History of ear surgery History of cholecystectomy H/O abdominal surgery S/P LASIK surgery of both eyes Family History Mother Breast cancer Rheumatoid arthritis Social History Household Members: Friend(s) Housing: House Are you a primary attending ambulatory care to a significant other at home: No Do you presently have visiting nurse or other home services: No Patient Tobacco Use Status: Never used Tobacco Second Hand Smoke Exposure: Yes Substance Use Type: Marijuana service: No Current occupational status: disabled Review of Systems Const All systems reviewed & are unremarkable except as noted in HPI and below Physical Exam Vital Signs: Last Vital Signs Pulse 76 10/05/23 13:18 Resp 16 10/05/23 13:18 BP 140/76 H 10/05/23 13:18 Pulse Ox 98 10/05/23 13:18 Oxygen Delivery Method Room Air 10/05/23 13:18 BMI result Body Mass Index 22.3 Const General: cooperative, healthy appearing, comfortable, no acute distress, well developed and alert Orientation/consciousness: patient oriented x3 HEENT Head: Yes normal to inspection, Yes normocephalic and Yes atraumatic Eyes General: appearance normal, both eyes and all related structures Resp Effort & Inspection: normal respiratory effort and able to speak in complete sentences Skin Lesions: no lesions Rashes: no rashes Neuro General: patient oriented x3 Extrem Other: Slightly edematous right foot compared to the left. Joanne sign is negative on the right. Pulses are bilaterally +2 detectable however slightly diminished on the right. Most likely because of the edema. Right hip: Normal to inspection. He has no pain with ROM of hip. No pain with hip flexion. No pain with hip ABDuction however there is discomfort with ADDuction of hip against resistance. He has mild discomfort with palpation along the iliopsoas and discomfort with SLR in the groin region. He has full ROM of knee without pain. Obvious hyperalgesia and allodynia in the projection of the anterior lateral surface of the right anterior lateral thigh. Results Reviewed Results Reviewed: MR pelvis wo con 04/06/23 IMPRESSION: 1. Asymmetric marked loss of superior right hip joint space with subarticular cystic erosions in the right acetabulum. This could represent osteoarthritis. 2. No evidence of inguinal hernia or muscle tear could be seen. Assessment & Plan Assessment & Plan (1) Osteoarthritis of right hip: Code(s): M16.11 - Unilateral primary osteoarthritis, right hip Category: Medical Qualifiers: Osteoarthritis type: primary Qualified Code(s): M16.11 - Unilateral primary osteoarthritis, right hip (2) Liver cirrhosis: Code(s): K74.60 - Unspecified cirrhosis of liver Category: Medical (3) Iliopsoas bursitis of right hip: Code(s): M70.71 - Other bursitis of hip, right hip Category: Medical (4) Right groin pain: Code(s): R10.31 - Right lower quadrant pain Category: Medical (5) Thrombocytopenia: Code(s): D69.6 - Thrombocytopenia, unspecified Category: Medical (6) Cirrhosis: Comment: treated for Hep C Code(s): K74.60 - Unspecified cirrhosis of liver Category: Medical Plan: Pain in the right abdomen and pain in the right groin could be evidence of the advanced cirrhosis. It could be also evidence of the degenerative disease of the spine. The MRI to rule out red flags in the lumbar spine would be desirable. I will schedule him for the procedure. Plan As of the notion of the muscle being ripped out of the thigh bone on the right, he needs to request Orthopedic surgery to send him for the MRI of the right thigh to support or deny this pathology. I will schedule him for an appointment with me to evaluate the lumbar spine MRI soon as MRI will be done and read. Patient Instructions: I here by testify that I spent 38 minutes in conversation with this patient as well as planning his care evaluating his prior diagnostic studies and organizing this note. Coding Level of Care Code Est Pt Level 4 (10182) Diagnoses Primary osteoarthritis of right hip M16.11 Osteoarthritis type: primary Liver cirrhosis K74.60 Iliopsoas bursitis of right hip M70.71 Right groin pain R10.31 Thrombocytopenia D69.6
[2023-10-05 13:18] VITALS: BP 140/76; PULSE 76; RESP 16; O2SAT 98; BMI 22.3
== END 2023-10-05 13:52 | disposition home or self-care (01) ==
PROVIDERS: PCP Family Medicine; Referring Provider Orthopaedic Surgery; Visit Provider Anesthesiology
DX: M16.11 Unilateral primary osteoarthritis, right hip (principal); K74.60 Unspecified cirrhosis of liver; M70.71 Other bursitis of hip, right hip; R10.31 Right lower quadrant pain; D69.6 Thrombocytopenia, unspecified
CPT/HCPCS: 99214

== ENCOUNTER → 2023-10-05 13:09 | Outpatient (BNVA) | payer MEDICAID, SELFPAY | PROVIDERS: PCP Family Medicine; Referring Provider Orthopaedic Surgery; Visit Provider Anesthesiology | DX: M16.11 Unilateral primary osteoarthritis, right hip (principal); M70.71 Other bursitis of hip, right hip; K74.60 Unspecified cirrhosis of liver; R10.31 Right lower quadrant pain; D69.6 Thrombocytopenia, unspecified | CPT/HCPCS: 99212 ==

== ENCOUNTER 2024-02-19 11:28 | Outpatient (AMB) | payer MEDICAID, SELFPAY ==
[2024-02-19 11:33] VITALS: BMI 22.3
--- NOTE | 2024-02-19 11:33 | A.OFFVIS_ITS ---
Vital Signs 02/19/24 11:33 Height 5 ft 5 in Weight 134 lb BMI 22.3 Intake Visit Reasons: OV- Discuss RT hip surgery Intake Note: Manuel is a 63 year old male who presents today for a follow up of his right hip OA. He was seen with pain management for an intraarticular injection on 09/08/23. This injection did not offer relief of his symptoms, therefore he would like to discuss alternative treatment options. His past medical history significant for hypertension hepatitis-C and liver cirrhosis stage III. Allergies NSAIDS (Non-Steroidal Anti-Inflamma Allergy (Severe, Verified 02/19/24 11:33) Unknown aspirin [ASA] Allergy (Unknown, Verified 02/19/24 11:33) Unknown but cannot take naproxen [NAPROXEN] Allergy (Unknown, Verified 02/19/24 11:33) ABDOMINAL PAIN, ABD PAIN Penicillins [PENICILLINS] Allergy (Unknown, Verified 02/19/24 11:33) Rash tuberculin, purified protein deriva [TB TEST] Allergy (Unknown, Verified 02/19/24 11:33) Unknown acetaminophen [From TYLENOL] Adverse Reaction (Unknown, Verified 02/19/24 11:33) Abdominal Pain mesalamine [From ASACOL] Adverse Reaction (Unknown, Verified 02/19/24 11:33) Abdominal Pain pseudoephedrine [From SUDAFED] Adverse Reaction (Unknown, Verified 02/19/24 11:33) Abdominal Pain ibuprofen [From Motrin] Adverse Reaction (Verified 02/19/24 11:33) Abdominal Pain HPI HPI OV- Discuss RT hip surgery: Details: Manuel is a 63 year old male who presents today for a follow up of his right hip OA. He was seen with pain management for an intraarticular injection on 09/08/23. This injection did not offer relief (other than for a few hours) of his symptoms, therefore he would like to discuss alternative treatment options. His past medical history significant for hypertension hepatitis-C and liver cirrhosis stage III. He describes deep groin pain that is painful with squatting and standing from a seated position, stairs, getting into and out of a car and, for the most part, severely compromises the quality of his life. This has been ongoing for years. [facility] Medical History (Updated 07/13/23 @ 18:29 by Ta-Jennifer Meuse, PA-C) Thrombocytopenia Afib Glaucoma Hypertension Anxiety Depression Cirrhosis Surgical History History of tooth extraction History of cardiac catheterization History of ear surgery History of cholecystectomy H/O abdominal surgery S/P LASIK surgery of both eyes Family History Mother Breast cancer Rheumatoid arthritis Social History Household Members: Friend(s) Housing: House Are you a primary respiratory care program director to a significant other at home: No Do you presently have visiting nurse or other home services: No Patient Tobacco Use Status: Never used Tobacco Second Hand Smoke Exposure: Yes Substance Use Type: Marijuana service: No Current occupational status: disabled Physical Exam Vital Signs: BMI result Body Mass Index 22.3 Const General: cooperative, healthy appearing, no acute distress, well developed and alert HEENT Head: Yes normal to inspection, Yes normocephalic and Yes atraumatic Mouth: moist mucous membranes Eyes General: appearance normal, both eyes and all related structures EOM: EOMs intact bilaterally Chest Other: no audible wheezing. Resp Other: No audible wheezing Effort & Inspection: normal respiratory effort Back/Spine/Pelvis Cervical Spine: normal cervical lordosis Skin General skin exam: no rashes or lesions noted Neuro General: no focal motor deficits Extrem Other: Right hip with positive impingement test and positive Stinchfield. He has severely limited internal rotation and walks with gait antalgia. Psych Appearance: grossly normal and well kempt Mental Status: mental status grossly normal Speech and movement: Normal speech and movement present Affect: normal affect Attitude: cooperative Results Reviewed Results Reviewed: I personally reviewed relevant MRI 1. Asymmetric marked loss of superior right hip joint space with subarticular cystic erosions in the right acetabulum. This could represent osteoarthritis. 2. No evidence of inguinal hernia or muscle tear could be seen. Assessment & Plan Assessment & Plan (1) Osteoarthritis of right hip: Code(s): M16.11 - Unilateral primary osteoarthritis, right hip Category: Medical Qualifiers: Osteoarthritis type: primary Qualified Code(s): M16.11 - Unilateral primary osteoarthritis, right hip Plan: This is a 63-year-old gentleman with osteoarthritis of the right hip. He has pain with daily activity does localizes to his groin. An injections in his hip was helpful for an hour or 2 only. His MRI showing marked loss of joint space with predominantly acetabular sided osteoarthritis. Given his clinical presentation and the severity of his symptoms I recommend hip arthroplasty. I discussed the risks, benefits and alternatives with him including, but not limited to, the risk of infection, pain, need for additional surgery, fracture, dislocation as well as medical complications associated with the surgery. He does have cirrhosis but he is not been drinking for years. Is actively being treated for his liver disease. He will need to be clear for surgery. Coding Level of Care Code Est Pt Level 4 (36648) Diagnoses Primary osteoarthritis of right hip M16.11 Osteoarthritis type: primary
== END 2024-02-19 12:22 | disposition home or self-care (01) ==
PROVIDERS: PCP Family Medicine; Visit Provider Orthopaedic Surgery
DX: M16.11 Unilateral primary osteoarthritis, right hip (principal)
CPT/HCPCS: 99214

== ENCOUNTER → 2024-02-19 11:28 | Outpatient (BNVA) | payer MEDICAID, SELFPAY | PROVIDERS: PCP Family Medicine; Visit Provider Orthopaedic Surgery | DX: M16.11 Unilateral primary osteoarthritis, right hip (principal) | CPT/HCPCS: 99212 ==

== ENCOUNTER 2024-04-18 15:00 | Outpatient (REF) | payer MEDICAID, SELFPAY ==
--- OUTSIDE RECORDS SUMMARY | 2024-04-18 16:33 | XMS_ITS | Encounter Summary ---
Author Organization [employer] Address [address] [place] [address] Care Team Providers Care Floor Mechanic Name Role Phone Marii Mcmillan MD Primary Care Provider [phone] Reason for Visit * Reason Onset Date Comments PT-1 03/17/2023 Encounter Details Date Type Department Care Team ([facility] st Contact Info) Description 03/17/2023 Telephone [facility] MEDICINE [address] [place] [address] Marii Mcmillan MD [address] [place] [address] PT-1 Social History Tobacco Use Types Packs/Day Years Used Date Smoking Tobacco: Never Passive Smoke Exposure: Never Smokeless Tobacco: Never Alcohol Use Standard Drinks/Week Comments Never 0 (1 standard drink = 0.6 oz pur e alcohol) Depression Answer Date Recorded Patient Health Questionnaire-9 Score 10 05/23/2022 Housing Stability Answer Date Recorded What is your housing situation today? I have david drew 01/16/[address] you li ve. Do you have problems with any of the following? None of the above 01/16/2023 Food Insecurity Answer Date Recorded Within the past 12 months, y ou worried that your food would run out before you got money to buy more: Never True 01/16/2023 Within the past 12 months,th e food you bought just didn't last and you didn't have enough money to get more: Never True 05/2022 Transportation Answer Date Recorded In the past 12 months, has l ack of transportation kept you from medical appts, meetings, work or from getting things needed for daily living? No 01/16/2023 Utilities Answer Date Recorded In the past 12 months, has t he electric, gas, oil or water company threatened to shut off services in your home? No 01/16/2023 Depression Answer Date Recorded Patient Health Questionnaire-2 Score 3 05/23/2022 Sex and Gender Information Value Date Recorded Sex Assigned at Male 01/13/2022 10:18 AM EDT Legal Sex Male 10:18 AM EDT Gender Identity Male 01/13/2022 10:18 AM EDT Sexual Orientation Straight 01/13/2022 10 :18 AM EDT documented as of this encounter Miscellaneous Notes * Telephone Encounter - Heidi Baird - 03/18/2023 4:05 PM EST PT-1 submitted for patient. They will receive a letter of approval or denial in the mail. * Telephone Encounter - Ron Jordan - 03/17/2023 3:44 PM EST PT1 needed Date: n/a Time: n/a Visits: three times a month Address: [address] [facility] Facility: [facility] Wheel Chair: No Diet Tech Needed: No PT1 needed Date: 04/06/23 Time: 1pm Visits: Once a month Address: [address] [place] [address] Facility[place] [facility] [place] Wheel Chair: No Diet Tech Needed: No PT1 needed Date: 04/29/23 Time: 1pm Visits: (amount of visits) ( x monthly, weekly, daily) Address: [address] [place] [address] Facility: ENT Wheel Chair:No Diet Tech Needed: No documented in this encounter Plan of Treatment Upcoming Encounters Date Type Department Care Team ([facility] Contact Info) Description 05/30/2024 2:00 PM EDT Telemedicine [facility] MED & PEDS [address] [place] [address] Leelee Castaneda RN [address] [place] [address] documented as of this encounter Visit Diagnoses Not on filedocumented in this encounter Additional Health Concerns Assessment Noted Time PHQ-9 Depression Total Score: 10 023 2:09 PM EST documented as of this encounter Care Teams Floor Mechanic Relationship Specialty Start Date End Date Marii Mcmillan MD [address] [place] [address] PCP - General Family Medicine 07/11/21 Evelyne Green Soft Iron InspectorMannequin Sander And Finisher 12/09/23 documented as of this encounter
--- OUTSIDE RECORDS SUMMARY | 2024-04-18 16:33 | XMS_ITS | Encounter Summary ---
Author Organization [employer] Address [address] [facility] [address] [place] [address] Care Team Providers Care Professional Healthcare Representative Name Role Phone Marii Mcmillan MD Primary Care Provider [phone] Reason for Visit * Reason Onset Date Comments Referral 03/12/2023 Encounter Details Date Type Department Care Team ([facility] Contact Info) Description 03/12/2023 Telephone [facility] MED & PEDS [address] [place] [address] Marii Mcmillan MD [address] [place] [address] Referral Social History Tobacco Use Types Packs/Day Years [...] * Telephone Encounter - Heidi Baird - 03/12/2023 4:18 PM EST Referral re-faxed to [facility] gastro. * Telephone Encounter - Brooke Corral - 03/12/2023 1:49 PM EST Tc from [facility] office of [facility] gastroenterology has not received referral. documented in this encounter Plan of Treatment Upcoming Encounters Date Type Department Care Team (Late st Contact Info) Description 05/30/2024 2:00 PM EDT Telemedicine [facility] MED & PEDS [address] [place] [address] Leelee Castaneda, RN [address] [place] [address] documented as of this encounter Visit Diagnoses Not on filedocumented in this encounter Additional Health Concerns Assessment Noted Time PHQ-9 Depression Total Score: 10 023 2:09 PM EST documented as of this encounter Care Teams Professional Healthcare Representative Relationship Specialty Start Date End Date Marii Mcmillan MD [address] [place] [address] PCP - General Family Medicine 07/11/21 Evelyne Green Tin FlopperBridge Worker Apprentice 12/09/23 documented as of this encounter
--- OUTSIDE RECORDS SUMMARY | 2024-04-18 16:33 | XMS_ITS | Encounter Summary ---
Author Organization [employer] Address [address] [facility] [address] [place] [address] Care Team Providers Care Driving Teacher Name Role Phone Marii Mcmillan MD Primary Care Provider [phone] Reason for Visit * Reason Onset Date Comments Lab Orders 03/12/2023 Encounter Details Date Type Department Care Team ([facility] st Contact Info) Description 03/12/2023 Telephone [facility] MEDICINE [address] [place] [address] Marii Mcmillan MD [address] [place] [address] Lab Orders Social History Tobacco Use Types Packs/Day Years [...] encounter Miscellaneous Notes * Telephone Encounter - Ron Easleyjia - 03/12/2023 1:36 PM EST Tc from pt requesting to schedule an appt for MRI, states discussed with PCP and would have appt scheduled. Please contact at [phone] documented in this encounter Plan of Treatment Upcoming Encounters Date Type Department Care Team (Late st Contact Info) Description 05/30/2024 2:00 PM EDT Telemedicine [facility] MED & PEDS [address] [place] [address] Leelee Castaneda, RN [address] [place] [address] documented as of this encounter Visit Diagnoses Not on filedocumented in this encounter Additional Health Concerns Assessment Noted Time PHQ-9 Depression Total Score: 10 023 2:09 PM EST documented as of this encounter Care Teams Driving Teacher Relationship Specialty Start Date End Date Marii Mcmillan MD [address] [place] [address] PCP - General Family Medicine 07/11/21 Evelyne Green [employer]analytics Team LeadFlatlock Sewing Machine Operator 12/09/23 documented as of this encounter
--- OUTSIDE RECORDS SUMMARY | 2024-04-18 16:34 | XMS_ITS | Encounter Summary ---
Author Organization [employer] Address [address] [facility] 7[address] [place] [address] Care Team Providers Care Watch Parts Inspector Name Role Phone Marii Mcmillan MD Primary Care Provider [phone] Reason for Visit * Reason Onset Date Comments Appointment Request 04/22/2023 Encounter Details Date Type Department Care Team ([facility] Contact Info) Description 04/22/2023 Telephone [facility] MED & PEDS [address] [place] [address] Marii Mcmillan MD [address] [place] [address] Appointment Request Social History Tobacco Use Types Packs/Day Years [...] encounter Miscellaneous Notes * Telephone Encounter - Berna Hayes RN - 04/22/2023 3:30 PM EST Triage call . Pt was scheduled for SDC apt today in [facility] but, due to car not starting Pt unable to come to facility. Pt calling to reschedule. Pt reports symptoms remain, headache, sinus drainage , bodyaches, nausea, no vomiting but, diarrhea x1 daily all symptoms started 2 weeks ago. Pt reports had started to feel better went out doing some things and then symptoms came back worse. Pt is eating and drinking adequate liquids neg for fever. Pt is offered to come to [facility] today or tomorrow morning but, Pt would rather come to [facility]. Pt is advised to call back tomorrow for SDC openings 04/24/23which will be available. Pt agreed with this disposition and plan. Home care reviewed. Protocol Used: COVID-19 - Diagnosed or Suspected (Adult) Protocol-Based Disposition: Home Care Positive Triage Question: * COVID-19 infection suspected by caller or triager and mild symptoms (cough, fever, or others) andhas not gotten tested yet * All higher-acuity triage questions were negative Care Advice Discussed: * Reassurance and Education - Suspected COVID-19 and Testing Needed * General Care Advice for COVID-19 Symptoms * Pain and Fever Medicines * Reasons To Call Back - Fever over 103 F (39.4 C) - Fever lasts over 3 days - Fever returns after being gone for 24 hours - Chest pain or difficulty breathing occurs - You become worse * Telephone Encounter - Lakia Ramirez - 04/22/2023 2:36 PM EST Tc from pt requesting to r/s Same day appt on 04/22/23 for GENET-DUMONT, bodyaches , nausea and nasal discharge x 3 weeks due to transportation (Car wont Start) Please contact pt @ [phone] documented in this encounter Plan of Treatment Upcoming Encounters Date Type Department Care Team ([facility] st Contact Info) Description 05/30/2024 2:00 PM EDT Telemedicine [facility] MED & PEDS [address] [place] [address] Leelee Castaneda, RN [address] [place] [address] documented as of this encounter Visit Diagnoses Not on filedocumented in this encounter Additional Health Concerns Assessment Noted Time PHQ-9 Depression Total Score: 10 023 2:09 PM EST documented as of this encounter Care Teams Watch Parts Inspector Relationship Specialty Start Date End Date Marii Mcmillan MD [address] [place] [address] PCP - General Family Medicine 07/11/21 Evelyne Green Servicenow Administrator DeveloperCreative Writer 12/09/23 documented as of this encounter
--- OUTSIDE RECORDS SUMMARY | 2024-04-18 16:34 | XMS_ITS | Encounter Summary ---
Author Organization [employer] Address [address] [place] [address] 7t [place] [address] Care Team Providers Care Catalogue Maker Name Role Phone Marii Mcmillan MD Primary Care Provider [phone] Reason for Visit * Reason Comments Med Refill Encounter Details Date Type Department Care Team (Late Contact Info) Description 04/08/2022 Refill [facility] MED & PEDS [address] [place] [address] Marii Mcmillan MD [address] [place] [address] Vitamin deficiency, unspecified Social History Tobacco Use Types Packs/Day Years Used Date Smoking Tobacco: Never Passive Smoke Exposure: Never Smokeless Tobacco: Never Alcohol Use Standard Drinks/Week Comments Never 0 (1 standard drink = 0.6 oz pur e alcohol) Sex and Gender Information Value Date Recorded Sex Assigned at Male 01/13/2022 10:18 AM EDT Legal Sex Male 10:18 AM EDT Gender Identity Male 01/13/2022 10:18 AM EDT Sexual Orientation Straight 01/13/2022 10 :18 AM EDT documented as of this encounter Plan of Treatment Upcoming Encounters Date Type Department Care Team (Late Contact Info) Description 05/30/2024 2:00 PM EDT Telemedicine [facility] MED & PEDS [address] [place] [address] Leelee Castaneda RN [address] [place] [address] documented as of this encounter Visit Diagnoses Diagnosis Vitamin deficiency, unspecified documented in this encounter Care Teams Catalogue Maker Relationship Specialty Start Date End Date Marii Mcmillan MD [address] [place] [address] PCP - General Family Medicine 07/11/21 Evelyne Green Black Powder Glazing OperatorArea Safety Manager 12/09/23 documented as of this encounter
--- OUTSIDE RECORDS SUMMARY | 2024-04-18 16:34 | XMS_ITS | Clinical Summary ---
Author Organization [employer] Address [address] [facility] 7t [place] [address] Care Team Providers Care Electric Sign Wirer Name Role Phone Marii Mcmillan MD Primary Care Provider [phone] Allergies Active Allergy Reactions Criticality Noted Date Comments Hydrocodone Rash Low 03/26/2010 Other reaction(s): unspecified Nsaids Other Low 06/13/2015 Abd pain Penicillin G Rash Low 06/13/2015 Penicillin V Rash Low 03/26/2010 Other reaction(s): unspecified Medications Diclofenac Sodium 1 % gel apply 2 gram by topical route 4 times every day to the affected area(s) 022 Active Blood Pressure kit Use by on arm route 1-2 times every day 022 Active dorzolamide-timol ol (Cosopt) 22.3-6.8 MG/ML ophthalmic solution INSTILL 1 DROP INTO RIGHT EYE EVERY 12 HOURS 022 Active Ciprodex otic suspension INSTILL 4 DROP INTO RIGHT EAR TWICE A DAY DIRECTED X 10 DAYS 023 Active Menaquinone-7 (Vitamin K2) 100 MCG capsuleIndication s:Takes dietary supplements Take 1 tablet by mouth in the morning. 90 capsule 4 023 Active multivitamin with minerals (Cerovite) 18-400 mg-mcg tablet tablet TAKE 1 TABLET BY MOUTH EVERY DAY IN THE MORNING 023 Active hydroCHLOROthiazi de (HYDRODiuril) 12.5 MG tabletIndications :Hypertension, unspecified type TAKE 1 TABLET BY MOUTH EVERY DAY IN THE MORNING (12.5 MG) 90 tablet 4 024 Active ofloxacin (Floxin) 0.3 % otic solution INSTILL 5 DROPS INTO RIGHT EAR TWICE A DAY FOR 10 DAYS Active Lotemax 0.5 % ophthalmic suspension INSTILL 1 DROP IN BOTH EYES TWICE A DAY FOR 3 WEEKS THEN DISCONTINUE Active atorvastatin (Lipitor) 40 MG tabletIndications :Hyperlipidemia, unspecified hyperlipidemia type TAKE 1 TABLET BY MOUTH EVERY DAY IN THE MORNING 90 tablet 4 024 Active Multiple Vitamin (Multivitamin) tabletIndications :Vitamin deficiency, unspecified TAKE 1 TABLET BY MOUTH EVERY DAY IN THE MORNING 90 tablet 4 024 Active permethrin (Elimite) 5 % cream apply to skin from hairline to toes and wash off 8-10 hours later 60 g 024 Active tamsulosin (Flomax) 0.4 MG 24 hr capsuleIndication s:Benign prostatic hyperplasia, unspecified whether lower urinary tract symptoms present TAKE 1 CAPSULE BY MOUTH EVERY DAY IN THE MORNING 90 capsule 1 024 Active triamcinolone (Kenalog) 0.5 % ointment APPLY TOPICALLY 2 TIMES DAILY TO AFFECTED AREA 15 g 024 Active potassium citrate CR (Urocit-K-10) 10 mEq ER tablet TAKE 1 TABLET BY MOUTH EVERY DAY 90 tablet 1 024 Active oxyCODONE-acetami nophen (Percocet) 5-325 MG tabletIndications :Polyarthralgia Take 1 tablet by mouth every 6 (six) hours if needed for severe pain for up to 28 days. 112 tablet 025 2024 Active OLANZapine (ZyPREXA) 5 MG tabletIndications :PTSD (post-traumatic stress disorder) TAKE 1 TABLET BY MOUTH AT BEDTIME 30 tablet 023 2024 Discontinued(T herapy completed) busPIRone (Buspar) 5 MG tabletIndications :PTSD (post-traumatic stress disorder) TAKE 1 TABLET BY MOUTH IN THE MORNING AND AT BEDTIME 60 tablet 023 2024 Discontinued(T herapy completed) oxyCODONE-acetami nophen (Percocet) 5-325 MG tabletIndications :Polyarthralgia Take 1 tablet by mouth every 6 (six) hours if needed for severe pain for up to 28 days. 112 tablet 024 2024 Discontinued(R eorder (will not trigger notification to Pharmacy)) Active Problems Problem Noted Date Diagnosed Date Pruritus 11/30/2023 Assessment & Plan (11/30/2023 3:39 PM EDT): Prescribing Elimite and Kenalog for Sx. Relevant Medications Permethrin (Elimite) 5% cream Triamcinolone (Kenalog) 0.5% treatment Alcoholic pancreatitis 10/19/2023 Alcoholic cirrhosis of liver 10/19/2023 Chronic hepatitis C 10/19/2023 Chronic low back pain 10/19/2023 Portal hypertension 10/19/2023 Right hip pain 02/26/2023 Assessment & Plan (01/29/2024 1:37 AM EST): Pt is still experiencing pain. Relevant orders: Referral to Orthopaedic Surgery Assessment & Plan (07/07/2023 3:56 PM EDT): environmental services specialist will further monitor hip pain. Assessment & Plan (04/21/2023 1:34 PM EST): Patient with Hx of Hip Arthritis stated that medications are not improving hip pain. Therefore, will discontinue prior medications, and will be prescribing Oxycodone. Recommended to follow up with an in-person visit. Assessment & Plan (02/26/2023 3:51 PM EST): Patient that presented [facility] compplaints of R Hip Pain will be prescribed Prednisone. Right inguinal pain 01/28/2023 Assessment & Plan (11/30/2023 3:38 PM EDT): Continue on medications. Assessment & Plan (07/07/2023 3:55 PM EDT): Discussed medications and refills as needed. Discussed vaccinations due, he asked to postpone for one week. Assessment & Plan (06/23/2023 3:48 PM EDT): Worsened pain, prescribing Oxycodone - acetaminophen 5-325 MG tablet for 2 weeks. If symptoms should worsen advised to go to ED. Assessment & Plan (04/16/2023 12:07 PM EST): Patient still presents visit with complaints of ongoing R inguinal pain stating that discomfort has worsen. Therefore, patient will be provided with pain medication for a period of x 7 days. Advised to notify office if medication don't improve symptom. In addition, patient will be referred to Pain Management. Follow up in 1 week. Assessment & Plan (01/28/2023 3:26 PM EST): Patient reports he went to surgery who told him that it was not herniation but more likely a muscle tear. There is not evidence of this in CT imaging that was ordered by the surgeon. He reports continues being symptomatic, waiting on ortho appt. Will proceed with MRI to r/o tear of muscle in the inguinal area. Rash 01/28/2023 Assessment & Plan (02/26/2023 6:01 PM EST): Ddx scabies, will send trial of permethrin. Patient that presented visit with complaints of rash will be prescribed Kenalog to apply on affected area. Assessment & Plan (01/28/2023 3:11 PM EST): Non blanchable rash. Send triamcinolone will f/up. Polyarthralgia 06/04/2022 Assessment & Plan (06/04/2022 10:11 PM EDT): Patient with diffuse joint pain, non specific + HERNANDO in testing, prior dx of hep C. Will send to rheumatology. Mass of right inguinal region 02/24/2022 Assessment & Plan (09/18/2022 12:18 PM EDT): Patient with continued chronic inguinal pain with tenderness with palpation in inguinal canal upon examination. Ddx. inguinal canal hernia. Previously referred to specialist and sent for ultrasound in February, pending appointments. At this point will refer to general surgeon and trial oxycodone prn. Assessment & Plan (02/24/2022 1:09 PM EST): R inguinal area with tenderness on palpation ddx inguinal herniation, will send US. Pt reports concern of pain in his area given his mother had pain in similar area and then was told she had a clot and had to get her leg amputated, he has had this pain for 3 yrs on and off, bilateral leg swelling but not disportional. Will f/u w/ results. PTSD (post-traumatic stress disorder) 02/24/2022 Assessment & Plan (02/24/2022 1:09 PM EST): Refill his psych meds for this month, but encouraged for him to f/u with psych. Encounters Date Type Department Care Team Description 04/18/2024 2:00 PM EST Office Visit [facility] MED & PEDS [address] [place] [address] Gildardo Huertas MD Pre-op evaluation (Primary Dx); LBBB (left bundle branch block) 04/18/2024 Travel 03/29/2024 Refill [facility] [address] [place] [address] Marii Mcmillan MD Polyarthralgia 03/18/2024 Telephone [facility] [address] [place] [address] Marii Mcmillan MD call back/referral 03/10/2024 2:00 PM EST Clinical Support [facility] [address] [place] [address] Leelee Castaneda RN Right hip pain 03/10/2024 Travel 03/03/2024 Telephone [facility] MEDICINE [address] [place] [address] Marii Mcmillan MD Pre-op Exam 02/29/2024 Refill [facility] MEDICINE [address] [place] [address] Marii Mcmillan MD Polyarthralgia 01/31/2024 Refill [facility] PED[facility] [address] [place] [address] Marii Mcmillan MD Polyarthralgia 01/28/2024 3:30 PM EST Office Visit [facility] MED & PEDS [address] [place] [address] Marii Mcmillan MD Right hip pain (Primary Dx) 01/28/2024 Travel 01/28/2024 Telephone [facility] MEDICINE [address] [place] [address] Marii Mcmillan MD Med Refill 01/26/2024 Telephone [facility] MED [facility] PED[facility] [address] [place], [place] [id number] Marii Mcmillan MD CHART PREP from Last 3 Months Immunizations Name Administration Dates Next Due Hep A, Adult 07/17/2023,06/27/2022 Hep B, adult 06/27/2022 Influenza, Split (incl. purified surface antigen ) 11/18/2011 Influenza, seasonal, injectable, preservative fr ee 11/30/2023 Tdap 07/17/2023 Social History Tobacco Use Types Packs/Day Years Used Date Smoking Tobacco: Never Passive Smoke Exposure: Never Smokeless Tobacco: Never Tobacco Cessation:Counseling Given: Not Answered Alcohol Use Standard Drinks/Week Comments Never 0 (1 standard drink = 0.6 oz pur e alcohol) Depression Answer Date Recorded Patient Health Questionnaire-9 Score 10 05/23/2022 Housing Stability Answer Date Recorded What is your housing situation today? I have davdi drew 01/16/[address] you [...] Orientation Straight 01/13/2022 10 :18 AM EDT Last Filed Vital Signs Vital Sign Reading Time Taken Comments Blood Pressure 124/86 04/18/2024 2:31 PM EST Pulse 70 04/18/2024 2:31 PM EST Temperature 36.6 ??C (97.9 ??F) 04/18/2024 2:31 PM ES T Respiratory Rate 20 04/18/2024 2:31 PM EST Oxygen Saturation 99% 04/18/2024 2:31 PM EST Inhaled Oxygen Concentration - - Weight 63.8 kg (140 lb 9.6 oz) 04/18/2024 2:31 P M EST Height 167.6 cm (5' 6 ) 04/18/2024 2:31 PM EST Body Mass Index 22.69 04/18/2024 2:31 PM EST Plan of Treatment Upcoming Encounters Date Type Department Care Team (Late st Contact Info) Description 05/30/2024 2:00 PM EDT Telemedicine [facility] MED & PEDS [address] [place] [address] Leelee Castaneda, RN [address] [place] [address] Health Maintenance Due Date Last Done Comments CT Colonography 1960 Colonoscopy 1960 Colorectal Cancer Screening 1960 FIT DNA/Cologuard 1960 FIT 1960 FOBT 1960 Sigmoidoscopy 1960 Alcohol/Substance Use Screening 1972 Pneumococcal Vaccine: 50+ Years (1 of 2 - PCV) 07/22/1979 Zoster Vaccines (1 of 2) 2010 RSV Patients and Patients Aged 60 years or older (1 - Risk 60-74 years 1-dose series) 2020 Hepatitis B Vaccines (2 of 3 - Risk 3-dose series) 07/25/2022 06/27/2022 Depression Monitoring (PHQ-9) 11/23/2022, 05/23/2022 Depression Screening 05/24/2023 05/23/2022, 05/23/2022 COVID-19 Vaccine (2 5 season) 2023 SDOH Screening 06/30/2024 07/01/2023 Tobacco Screening 04/18/2025 04/18/2024 Lipid Panel 07/26/2026 07/26/2021 DTaP/Tdap/Td Vaccines (2 - T d or Tdap) 07/16/2033 07/17/2023 HIV Screening Completed 07/26/2021 Hepatitis A Vaccines Completed 07/17/2023, 06/27/2022 Influenza Vaccine Completed 11/30/2023, 11/18/2011 HIB Vaccines Aged Out No longer eligi ble based on patient's age to complete this topic HPV Vaccines Aged Out No longer eligi ble based on patient's age to complete this topic IPV Vaccines Aged Out No longer eligi ble based on patient's age to complete this topic Meningococcal Vaccine Aged Out No isela amara eligible based on patient's age to complete this topic RSV under 20 months Aged Out No longe r eligible based on patient's age to complete this topic Rotavirus Vaccines Aged Out No longer eligible based on patient's age to complete this topic Procedures Procedure Name Priority Date/Time Associated Diagnosis Comments ECG 12-LEAD Routine 04/18/2024 4:12 PM EST Pre-op evaluation LBBB (left bundle branch block) POCT MITHCELL-14 URINE DRUG SCREEN Routine 03/10/2024 2:25 PM EST Right hip pain HIV 1/2 ANTIGEN/ANTIBODY, FOURTH GENERATION W/RFL Routine 07/26/2021 10:58 AM EDT LIPID PANEL, STANDARD Routine 07/26/2021 10:58 AM EDT from Last 3 Months or Most Recently Relevant to Health Maintenance Results * ECG 12 lead (04/18/2024 4:12 PM EST) Gildardo Ch MD - 04/18/2024 4:12 PM EST HR: 65 bpm. [place] 18. ??LBBB. ??High lateral and lateral repolarization disturbance. ??Normal sinus rhythm Gildardo Huertas MD ECG ORDERABLES Final Resul t * POCT MITCHELL-14 Urine Drug Screen (03/10/2024 2:25 PM EST) THC Positive Oxycodone Screen, Urine Positive Urine Urine specimen obtained by clean catch procedure / Unknown 03/10/2024 2:25 PM EST Narrative Leelee Castaneda RN - 03/10/2024 2:25 PM EST Lot# [id number] Exp: 02-19-25 Marii Mcmillan MD POINT OF CARE TEST ENTER/EDIT ORDERABLES Final Result * HIV 1/2 ANTIGEN/ANTIBODY,FOURTH GENERATION W/RFL (07/26/2021 10:58 AM EDT) HIV-1/2 ANTIGEN AND ANTIBODIES, 4TH GENERATION W/ REFLEX NON-REACT ELLEN NON-REACT ELLEN [facility] Comment: HIV-1 antigen and HIV-1/HIV-2 antibodies were not detected. There is no laboratory evidence of HIV infection. ?? PLEASE NOTE: This information has been disclosed to you from records whose confidentiality may be protected by state law. ??If your state requires such protection, then the state law prohibits you from making any further disclosure of the information without the specific written consent of the person to whom it pertains, or as otherwise permitted by law. A general authorization for the release of medical or other information is NOT sufficient for this purpose. ? For additional information please refer to http://education.Elliptic.Taggable/faq/WDK650 (This link is being provided for informational/ educational purposes only.) ? The performance of this assay has not been clinically validated in patients less than 2 years old. ?? 07/26/2021 10:5 8 AM EDT Marii Mcmillan MD LAB BLOOD ORDERABLES Final Re sult [facility] [address] * (ABNORMAL) LIPID PANEL, STANDARD (07/26/2021 10:58 AM EDT) Chol/HDLC Ratio 3.3 <5.0 (calc) [facility] Cholesterol, Total 177 <200 mg/dL [facility] HDL Cholesterol 53 > OR = 40 mg/dL [facility] LDL Cholesterol 104(H) mg/dL (calc) [facility] Comment: Reference range: <100 ?? Desirable range <100 mg/dL for primary prevention; ?? <70 mg/dL for patients with CHD or diabetic patients ?? with > or = 2 CHD risk factors. ?? LDL-C is now calculated using the Dami ?? calculation, which is a validated novel method providing ?? better accuracy than the Friedewald equation in the ?? estimation of LDL-C. ?? Fortunato GIBSON et al. ISHAN. 2013;310(19): 8355-4855 ?? (http://education.SeeControl.com/faq/YAU467) Non-HDL Cholesterol 124 <130 mg/dL (calc) [facility] Comment: For patients with diabetes plus 1 major ASCVD risk ?? factor, treating to a non-HDL-C goal of <100 mg/dL ?? (LDL-C of <70 mg/dL) is considered a therapeutic ?? option. Triglycerides 102 <150 mg/dL [facility] 07/26/2021 10:5 8 AM EDT us Marii Mcmillan MD LAB BLOOD ORDERABLES Final Re sult [facility] [address] from Last 3 Months or Most Recently Relevant to Health Maintenance Insurance [employer] Care Teams Electric Sign Wirer Relationship Specialty Start Date End Date Marii Mcmillan MD [address] [place] [address] PCP - General Family Medicine 07/11/21 Evelyne Green Carpenter RoughPool Cleaner 12/09/23
--- OUTSIDE RECORDS SUMMARY | 2024-04-18 16:34 | XMS_ITS | Encounter Summary ---
Author Organization [employer] Address [address] [place] [address] Care Team Providers Care Lead Applications Developer Name Role Phone Marii Mcmillan MD Primary Care Provider [phone] Reason for Visit * Reason Onset Date Comments FYI 08/05/2023 Encounter Details Date Type Department Care Team ([facility] Contact Info) Description 08/05/2023 Telephone [facility] MEDICINE [address] [place] [address] Marii Mcmillan MD [address] [place] [address] FYI Social History Tobacco Use Types Packs/Day Years [...] encounter Miscellaneous Notes * Telephone Encounter - Kalia Holt RN - 08/05/2023 12:43 PM EDT Please see FYI below. * Telephone Encounter - Ron Jordan - 08/05/2023 12:20 PM EDT Tc from pt would like to inform PCP that they will be receiving Cortizone shots from [facility] pain management. Advise will leave message as FYI. documented in this encounter Plan of Treatment Upcoming Encounters Date Type Department Care Team (Late st Contact Info) Description 05/30/2024 2:00 PM EDT Telemedicine [facility] MED & PEDS [address] [place] [address] Leelee Castaneda, RN [address] [place] [address] documented as of this encounter Visit Diagnoses Not on filedocumented in this encounter Additional Health Concerns Assessment Noted Time PHQ-9 Depression Total Score: 10 023 2:09 PM EST documented as of this encounter Care Teams Lead Applications Developer Relationship Specialty Start Date End Date Marii Mcmillan MD [address] [place] [address] PCP - General Family Medicine 07/11/21 Evelyne Green Water Main InspectorAfterschool Babysitter 12/09/23 documented as of this encounter
--- OUTSIDE RECORDS SUMMARY | 2024-04-18 16:34 | XMS_ITS | Encounter Summary ---
Author Organization [employer] Address [address] [facility] [address] [address] Care Team Providers Care Commercial Green Building Designer Name Role Phone Marii Mcmillan MD Primary Care Provider [phone] Encounter Details Date Type Department Care Team (Latest Contact Info) Description 04/18/2024 Travel Social History Tobacco Use Types Packs/Day Years [...] Info) Description 05/30/2024 2:00 PM EDT Telemedicine [facility] MED & PEDS [address] [place] [address] Leelee Castaneda, RN [address] [place] [address] documented as of this encounter Visit Diagnoses Not on filedocumented in this encounter Additional Health Concerns Assessment Noted Time PHQ-9 Depression Total Score: 10 023 2:09 PM EST documented as of this encounter Care Teams Commercial Green Building Designer Relationship Specialty Start Date End Date Marii Mcmillan MD [address] [place] [id number] PCP - General Family Medicine 07/11/21 Evelyne Green Asphalt PaverFibreglass Gun Hand 12/09/23 documented as of this encounter
--- OUTSIDE RECORDS SUMMARY | 2024-04-18 16:34 | XMS_ITS | Encounter Summary ---
Author Organization [employer] Address [address] [facility] 7t [place] [address] Care Team Providers Care Scientific Laboratory Supervisor Name Role Phone Marii Mcmillan MD Primary Care Provider [phone] Reason for Visit * Reason Onset Date Comments PT-1 11/11/2023 Encounter Details Date Type Department Care Team ([facility] st Contact Info) Description 11/11/2023 Telephone [facility] MEDICINE [address] [place] [address] Marii Mcmillan MD [address] [place] [address] PT-1 Social History Tobacco Use Types Packs/Day [...] * Telephone Encounter - Ron Easleyjia - 11/11/2023 9:05 AM EDT Evelyne with ICP calling requesting PT1 Home Address verified: Y/N: Yes Provider name or facility name: [facility] Facility Address: [address] [place] [address] Escort needed: Y/N: No Do you have a wheelchair: Y/N: No If yes- Manual or electric: Visits: 4 times a year or every 3 month Provider name or facility name: [facility] Facility Address: [address] [place] [address] [address], [place] [address] Escort needed: Y/N: No Do you have a wheelchair: Y/N: No If yes- Manual or electric: Visits: 6 times a year Date: 11/23/23 Time: 9:15am Provider name or facility name: [facility] Facility Address: [address] [place] [address] Escort needed: Y/N: No Do you have a wheelchair: Y/N: No If yes- Manual or electric: Visits: 5 times a month Date: 11/30/23 Time: 3:15pm Date: 12/10/23 Time: 2:30pm Provider name or facility name: [facility] Facility Address: [address] [place] [address] 3rd Floor, [place] [address] Escort needed: Y/N: No Do you have a wheelchair: Y/N: No If yes- Manual or electric: Visits: 3 times a year Provider name or facility name: [facility] Facility Address: [address], [place] [address] Escort needed: Y/N: No Do you have a wheelchair: Y/N: No If yes- Manual or electric: Visits:4 times a year documented in this encounter Plan of Treatment Upcoming Encounters Date Type Department Care Team (Late st Contact Info) Description 05/30/2024 2:00 PM EDT Telemedicine [facility] MED & PEDS [address] [place] [address] Leelee Castaneda, RN [address] [place] [address] documented as of this encounter Visit Diagnoses Not on filedocumented in this encounter Additional Health Concerns Assessment Noted Time PHQ-9 Depression Total Score: 10 023 2:09 PM EST documented as of this encounter Care Teams Scientific Laboratory Supervisor Relationship Specialty Start Date End Date Marii Mcmillan MD [address] [place] [address] PCP - General Family Medicine 07/11/21 Evelyne Green Photo Mask Pattern GeneratorVisual Communications Instructor 12/09/23 documented as of this encounter
--- OUTSIDE RECORDS SUMMARY | 2024-04-18 16:34 | XMS_ITS | Encounter Summary ---
Author Organization [employer] Address [address] [facility] 7t [place] [address] Care Team Providers Care Landscaper Helper Name Role Phone Marii Mcmillan MD Primary Care Provider [phone] Reason for Visit * Reason Onset Date Comments PT-1 12/08/2022 Encounter Details Date Type Department Care Team ([facility] st Contact Info) Description 12/08/2022 Telephone [facility] MEDICINE [address] [place] [address] Marii Mcmillan MD 505 [place] [address] PT-1 Social History Tobacco Use Types Packs/Day [...] * Telephone Encounter - Heidi Baird - 12/09/2022 12:06 PM EDT PT-1 submitted for patient. They will receive a letter of approval or denial in the mail. * Telephone Encounter - Ron Jordan - 12/08/2022 12:40 PM EDT Tc from [facility] requesting a PT-1 , states they have an upcoming up. PT-1 Date: 12/22/22 Time: 2pm Visits: 6 for the whole year Address: [address] [place] [address] Facility: [facility]: Endy Callahan M.D. Wheel Chair: No Curb Setter Needed: No documented in this encounter Plan of Treatment Upcoming Encounters Date Type Department Care Team (Late st Contact Info) Description 05/30/2024 2:00 PM EDT Telemedicine [facility] MED & PEDS [address] [place] [address] Leelee Castaneda RN [address] [place] [address] documented as of this encounter Visit Diagnoses Not on filedocumented in this encounter Additional Health Concerns Assessment Noted Time PHQ-9 Depression Total Score: 10 023 2:09 PM EST documented as of this encounter Care Teams Landscaper Helper Relationship Specialty Start Date End Date Marii Mcmillan MD [address] [place] [address] PCP - General Family Medicine 07/11/21 Evelyne Green Equipment Operator WarehouseWant Ad Receiver 12/09/23 documented as of this encounter
--- OUTSIDE RECORDS SUMMARY | 2024-04-18 16:34 | XMS_ITS | Encounter Summary ---
Author Organization [employer] Address 75 [facility] 7t [place] [address] Care Team Providers Care Director Geothermal Operations Name Role Phone Marii Mcmillan MD Primary Care Provider [phone] Reason for Visit * Reason Onset Date Comments Referral 05/20/2022 Encounter Details Date Type Department Care Team ([facility] st Contact Info) Description 05/20/2022 Telephone [facility] CHC MED & PEDS [address] [place] [address] Marii Mcmillan MD [address] [place] [address] Referral Social History Tobacco Use Types Packs/Day Years Used Date Smoking Tobacco: Never Passive Smoke Exposure: Never Smokeless Tobacco: Never Alcohol Use Standard Drinks/Week Comments Never 0 (1 standard drink = 0.6 oz pur e alcohol) Depression Answer Date Recorded Patient Health Questionnaire-9 Score 10 05/23/2022 Depression Answer Date Recorded Patient Health Questionnaire-2 Score 3 05/23/2022 Sex and Gender Information Value Date Recorded Sex Assigned at Male 01/13/2022 10:18 AM EDT Legal Sex Male 10:18 AM EDT Gender Identity Male 01/13/2022 10:18 AM EDT Sexual Orientation Straight 01/13/2022 10 :18 AM EDT COVID-19 Exposure Response Date Recorded In the last 10 days, have yo u been in contact with someone who was confirmed or suspected to have Coronavirus/COVID-19? No / Unsure 05/23/2022 1:58 PM EST documented as of this encounter Miscellaneous Notes * Telephone Encounter - Lakia Ramirez - 05/20/2022 9:41 AM EST Tc from pt requesting status on four referrals that were made on 02/04/2022. Please contact pt at [phone] documented in this encounter Plan of Treatment Upcoming Encounters Date Type Department Care Team ([facility] st Contact Info) Description 05/30/2024 2:00 PM EDT Telemedicine [facility] MED & PEDS [address] [place] [address] Leelee Castaneda, RN [address] [place] [address] documented as of this encounter Visit Diagnoses Not on filedocumented in this encounter Care Teams Director Geothermal Operations Relationship Specialty Start Date End Date Marii Mcmillan MD 230 [place] [address] PCP - General Family Medicine 07/11/21 Evelyne Green Cloth ReelerRagman 12/09/23 documented as of this encounter
--- OUTSIDE RECORDS SUMMARY | 2024-04-18 16:34 | XMS_ITS | Encounter Summary ---
Author Organization [employer] Address [address] [facility] [address] 7[address] [place] [address] Care Team Providers Care Client Sales And Service Officer Name Role Phone Marii Mcmillan MD Primary Care Provider [phone] Reason for Visit * Reason Onset Date Comments Appointment Request 01/11/2024 Encounter Details Date Type Department Care Team ([facility] Contact Info) Description 01/11/2024 Telephone [facility] MEDICINE [address] [place] [address] Marii Mcmillan MD [address] [place] [address] Appointment Request Social History Tobacco Use Types [...] encounter Miscellaneous Notes * Telephone Encounter - Hermilo Lopez - 01/11/2024 10:23 AM EDT Tc from pt calling in regards to tomorrows PLANT PRODUCTION WORKER visit stating he is feeling sick and is wondering ifhe can change appt to a telephone visit. Please contact pt at [phone]. documented in this encounter Plan of Treatment Upcoming Encounters Date Type Department Care Team (Late st Contact Info) Description 05/30/2024 2:00 PM EDT Telemedicine [facility] MED & PEDS [address] [place] [address] Leelee Castaneda, RN [address] [place] [address] documented as of this encounter Visit Diagnoses Not on filedocumented in this encounter Additional Health Concerns Assessment Noted Time PHQ-9 Depression Total Score: 10 023 2:09 PM EST documented as of this encounter Care Teams Client Sales And Service Officer Relationship Specialty Start Date End Date Marii Mcmillan MD [address] [place] [address] PCP - General Family Medicine 07/11/21 Evelyne Green Staffing SpecialistMerchandising Assistant 12/09/23 documented as of this encounter
--- OUTSIDE RECORDS SUMMARY | 2024-04-18 16:34 | XMS_ITS | Encounter Summary ---
Author Organization [employer] Address 75 [facility] 7t [place] [address] Care Team Providers Care Cleaning [place] Name Role Phone Marii Mcmillan MD Primary Care Provider [phone] Reason for Visit * Reason Comments Med Change Request Encounter Details Date Type Department Care Team ([facility] Contact Info) Description 05/29/2022 Refill [facility] CHC MED & PEDS [address] [place] [address] Marii Mcmillan MD 505 [place] [address] Takes dietary supplements Social History Tobacco Use Types Packs/Day Years [...] PM EST documented as of this encounter Plan of Treatment Upcoming Encounters Date Type Department Care Team (Late Contact Info) Description 05/30/2024 2:00 PM EDT Telemedicine [facility] CH[facility] MED & PEDS [address] [place] [address] Leelee Castaneda, RN [address] [place] [address] documented as of this encounter Visit Diagnoses Diagnosis Takes dietary supplements documented in this encounter Additional Health Concerns Assessment Noted Time PHQ-9 Depression Total Score: 10 023 2:09 PM EST documented as of this encounter Care Teams Cleaning [place] Relationship Specialty Start Date End Date Marii Mcmillan MD [address] [place] [address] PCP - General Family Medicine 07/11/21 Evelyne Green Marketing And Outreach CoordinatorEthnology Professor 12/09/23 documented as of this encounter
--- OUTSIDE RECORDS SUMMARY | 2024-04-18 16:34 | XMS_ITS | Encounter Summary ---
Author Organization [employer] Address [address] [facility] [address] 7t [place] [address] Care Team Providers Care Pick Pack Worker Name Role Phone Marii Mcmillan MD Primary Care Provider [phone] Encounter Details Date Type Department Care Team (Late st Contact Info) Description 06/22/2023 Telephone [facility] MEDICINE [address] [place] [address] Marii Mcmillan MD [address] [place] [address] Social History Tobacco Use Types Packs/Day Years [...] Info) Description 05/30/2024 2:00 PM EDT Telemedicine [facility] MED & PEDS [address] [place] [address] Leelee Castaneda, RN 505 [place] [address] documented as of this encounter Visit Diagnoses Not on filedocumented in this encounter Additional Health Concerns Assessment Noted Time PHQ-9 Depression Total Score: 10 023 2:09 PM EST documented as of this encounter Care Teams Pick Pack Worker Relationship Specialty Start Date End Date Marii Mcmillan MD [address] [place] [address] PCP - General Family Medicine 07/11/21 Evelyne Green Boilermaker LoftsmanDirector Patient 12/09/23 documented as of this encounter
--- OUTSIDE RECORDS SUMMARY | 2024-04-18 16:34 | XMS_ITS | Encounter Summary ---
Author Organization [employer] Address [address] [facility] [address] 7[address] [place] [address] Care Team Providers Care Crab Butcher Name Role Phone Marii Mcmillan MD Primary Care Provider [phone] Reason for Visit * Reason Onset Date Comments PT1 05/15/2023 Encounter Details Date Type Department Care Team ([facility] st Contact Info) Description 05/15/2023 Telephone [facility] MEDICINE [address] [place] [address] Marii Mcmillan MD 505 [place] [address] PT1 Social History Tobacco Use Types Packs/Day Years [...] * Telephone Encounter - Heidi Baird - 05/15/2023 10:31 AM EST PT-1 submitted for patient. They will receive a letter of approval or denial in the mail. * Telephone Encounter - Jud Resendiz - 05/15/2023 9:04 AM EST Tc from Evelyne CHAWLA PT1 needed Date: 07/02 Time: 12:30 Visits: (amount of visits) ( x monthly, weekly, daily) Address: [address] [place] [address] Facility[facility] Wheel Chair: NO Mass Spectrometry Specialist Needed: NO Address and phone confirmed by Evelyne CHAWLA documented in this encounter Plan of Treatment Upcoming Encounters Date Type Department Care Team (Late st Contact Info) Description 05/30/2024 2:00 PM EDT Telemedicine [facility] MED & PEDS [address] [place] [address] Leelee Castaneda, REGINA 505 [place] [address] documented as of this encounter Visit Diagnoses Not on filedocumented in this encounter Additional Health Concerns Assessment Noted Time PHQ-9 Depression Total Score: 10 023 2:09 PM EST documented as of this encounter Care Teams Crab Butcher Relationship Specialty Start Date End Date aMrii Mcmillan MD [address] [place] [address] PCP - General Family Medicine 07/11/21 Evelyne Green Batch Still OperatorDigital Media Intern 12/09/23 documented as of this encounter
--- OUTSIDE RECORDS SUMMARY | 2024-04-18 16:34 | XMS_ITS | Encounter Summary ---
Author Organization [employer] Address [address] [facility] 7t [place] [address] Care Team Providers Care Vallez Filter Operator Name Role Phone Marii Mcmillan MD Primary Care Provider [phone] Reason for Visit * Reason Onset Date Comments Med Refill 03/29/2024 Encounter Details Date Type Department Care Team ([facility] st Contact Info) Description 03/29/2024 Refill [facility] CHC MED & PEDS [address] [place] [address] Marii Mcmillan MD 505 [place] [address] Polyarthralgia Social History Tobacco Use Types Packs/Day Years [...] encounter Miscellaneous Notes * Telephone Encounter - Siobhan Richter - 03/29/2024 9:55 AM EST TC from pt requesting medication refill. Medications needing refill : oxyCODONE-acetaminophen (Percocet) 5-325 MG tablet To be sent to: [facility]/pharmacy #[id number] MARY CARIAS - [address] documented in this encounter Plan of Treatment Upcoming Encounters Date Type Department Care Team (Late st Contact Info) Description 05/30/2024 2:00 PM EDT Telemedicine [facility] CHC MED & PEDS [address] [place] [address] Leelee Castaneda, RN [address] [place] [address] documented as of this encounter Visit Diagnoses Diagnosis Polyarthralgia Pain in joint, multiple sites documented in this encounter Additional Health Concerns Assessment Noted Time PHQ-9 Depression Total Score: 10 023 2:09 PM EST documented as of this encounter Care Teams Vallez Filter Operator Relationship Specialty Start Date End Date Marii Mcmillan MD [address] [place] [address] PCP - General Family Medicine 07/11/21 Evelyne Green RefuelerAmerican Board Certified Orthotist 12/09/23 documented as of this encounter
--- OUTSIDE RECORDS SUMMARY | 2024-04-18 16:34 | XMS_ITS | Encounter Summary ---
Author Organization [employer] Address [address] [place] [address] 7t [place] [address] Care Team Providers Care Seeing Eye Dog Teacher Name Role Phone Marii Mcmillan MD Primary Care Provider [phone] Reason for Referral * Consultation (Routine) - Pending Review Specialty Diagnoses / Procedures Referred By Contandrea t Referred To Contact Cardiology Diagnoses Pre-op evaluation LBBB (left bundle branch block) Ebony Huertas MD [address] [place] [address] Phone: tel: fax: Referral ID Status Reason Start Date Expiration Date Visits Requested Visits Authorized [id number] Pending Review Specialty Services Required 04/18/2024 04/18/2025 1 1 Reason for Visit * Reason Comments Preop evaluation Encounter Details Date Type Department Care Team ([facility] st Contact Info) Description 04/18/2024 2:00 PM EST Office Visit [facility] CHC MED & PEDS [address] [place] [address] Ebony Huertas MD [address] [place] [address] Pre-op evaluation (Primary Dx); LBBB (left bundle branch block) Social History Tobacco Use Types Packs/Day Years [...] AM EDT documented as of this encounter Last Filed Vital Signs Vital Sign Reading [...] Mass Index 22.69 04/18/2024 2:31 PM EST documented in this encounter Progress Notes * Ebony Huertas MD - 04/18/2024 2:00 PM EST Subjective Patient ID: Manuel Grimm is a 63 y.o. male who presents for No chief complaint on file.. HPI Here for preop evaluation. Will be scheduled for right total hip replacement under general anesthesia. Patient denies any shortness of breath/palpitations/chest pain/paroxysmal nocturnal dyspnea. Exercise tolerance more than 4 METS. No gastrointestinal complaints. No bleeding diathesis. Patient Active Problem List Diagnosis Mass of right inguinal region PTSD (post-traumatic stress disorder) Polyarthralgia Right inguinal pain Rash Right hip pain Alcoholic pancreatitis Alcoholic cirrhosis of liver (CMS/HCC) Chronic hepatitis C (CMS/HCC) Chronic low back pain Portal hypertension (CMS/HCC) Pruritus Current Outpatient Medications on File Prior to Visit Medication Sig Dispense Refill atorvastatin (Lipitor) 40 MG tablet TAKE 1 TABLET BY MOUTH EVERY DAY IN THE MORNING 90 tablet 4 Blood Pressure kit Use by on arm route 1-2 times every day busPIRone (Buspar) 5 MG tablet TAKE 1 TABLET BY MOUTH IN THE MORNING AND AT BEDTIME 60 tablet 0 Ciprodex otic suspension INSTILL 4 DROP INTO RIGHT EAR TWICE A DAY DIRECTED X 10 DAYS Diclofenac Sodium 1 % gel apply 2 gram by topical route 4 times every day to the affected area(s) dorzolamide-timolol (Cosopt) 22.3-6.8 MG/ML ophthalmic solution INSTILL 1 DROP INTO RIGHT EYE EVERY12 HOURS hydroCHLOROthiazide (HYDRODiuril) 12.5 MG tablet TAKE 1 TABLET BY MOUTH EVERY DAY IN THE MORNING (12.5 MG) 90 tablet 4 Lotemax 0.5 % ophthalmic suspension INSTILL 1 DROP IN BOTH EYES TWICE A DAY FOR 3 WEEKS THEN DISCONTINUE Menaquinone-7 (Vitamin K2) 100 MCG capsule Take 1 tablet by mouth in the morning. 90 capsule 4 Multiple Vitamin (Multivitamin) tablet TAKE 1 TABLET BY MOUTH EVERY DAY IN THE MORNING 90 tablet 4 multivitamin with minerals (Cerovite) 18-400 mg-mcg tablet tablet TAKE 1 TABLET BY MOUTH EVERY DAY IN THE MORNING ofloxacin (Floxin) 0.3 % otic solution INSTILL 5 DROPS INTO RIGHT EAR TWICE A DAY FOR 10 DAYS OLANZapine (ZyPREXA) 5 MG tablet TAKE 1 TABLET BY MOUTH AT BEDTIME 30 tablet 0 oxyCODONE-acetaminophen (Percocet) 5-325 MG tablet Take 1 tablet by mouth every 6 (six) hours if needed for severe pain for up to 28 days. 112 tablet 0 permethrin (Elimite) 5 % cream apply to skin from hairline to toes and wash off 8-10 hours later 60g 0 potassium citrate CR (Urocit-K-10) 10 mEq ER tablet TAKE 1 TABLET BY MOUTH EVERY DAY 90 tablet 1 tamsulosin (Flomax) 0.4 MG 24 hr capsule TAKE 1 CAPSULE BY MOUTH EVERY DAY IN THE MORNING 90 capsule 1 triamcinolone (Kenalog) 0.5 % ointment APPLY TOPICALLY 2 TIMES DAILY TO AFFECTED AREA 15 g 0 No current facility-administered medications on file prior to visit. Allergies Allergen Reactions Hydrocodone Rash Other reaction(s): unspecified Nsaids Other Abd pain Penicillin G Rash Penicillin V Rash Other reaction(s): unspecified Review of Systems Constitutional: Negative for chills, diaphoresis and fatigue. Eyes: Negative for pain, redness and itching. Respiratory: Negative for cough, choking and chest tightness. Gastrointestinal: Negative for anal bleeding and blood in stool. Musculoskeletal: Negative for back pain and gait problem. Skin: Negative for rash. Objective Physical Exam Constitutional: General: He is not in acute distress. Appearance: Normal appearance. He is not ill-appearing, toxic-appearing or diaphoretic. Cardiovascular: Rate and Rhythm: Normal rate. Pulmonary: Effort: Pulmonary effort is normal. Neurological: General: No focal deficit present. Mental Status: He is alert. Assessment/Plan Diagnoses and all orders for this visit: Pre-op evaluation Comments: Patient at risk cannot be evaluated accurately with the current available information. STOP-BANG questionnaire: Patient is an intermediate risk of PACO. Labs ordered. Patient will be contacted with results and informed of the risk related to his liver cirrhosis A cardiology referral was generated given patient's history of LBBB and recurrent chest pain. Orders: - CBC auto differential; Future - Comprehensive Metabolic Panel; Future - Prothrombin Time-INR; Future - Prealbumin; Future - HIV-1/2 Antigen and Antibodies, Fourth Generation, with Reflexes; Future - TSH W/Reflex to FT4; Future - Partial Thromboplastin Time, Activated (APTT); Future - Referral to Cardiology; Future LBBB (left bundle branch block) - Referral to Cardiology; Future documented in this encounter Miscellaneous Notes * Addendum Note - Ebony Huertas MD - 04/18/2024 2:00 PM ESTAddended by: EBONY HUERTAS on: 04/18/2024 04:12 PM Modules accepted: Orders documented in this encounter Plan of Treatment Upcoming Encounters Date Type Department Care Team (Late st Contact Info) Description 05/30/2024 2:00 PM EDT Telemedicine [facility] MED & PEDS [address] [place] [address] Leelee Castaneda RN [address] [place] [address] Scheduled Orders Name Type Priority Associated Diagnoses Orde r Schedule CBC auto differential Lab Routine Pre-op evaluation Expected: 04/18/2024 (Approximate), Expires: 04/18/2025 Comprehensive Metabolic Panel Lab Routine Pre-op evaluation Expected: 04/18/2024 (Approximate), Expires: 04/18/2025 Prothrombin Time-INR Lab Routine Pre-op evaluation Expected: 04/18/2024, Expires: 04/18/2025 Prealbumin Lab Routine Pre-op evaluation Expected: 04/18/2024, Expires: 04/18/2025 HIV-1/2 Antigen and Antibodies, Fourth Generation, with Reflexes Lab Routine Pre-op evaluation Expected: 04/18/2024 (Approximate), Expires: 04/18/2025 TSH W/Reflex to FT4 Lab Routine Pre-op evaluation Expected: 04/18/2024 (Approximate), Expires: 04/18/2025 Partial Thromboplastin Time, Activated (APTT) Lab Routine Pre-op evaluation Expected: 04/18/2024, Expires: 04/18/2025 Scheduled Referrals Name Type Priority Associated Diagnoses Order Schedule Referral to Cardiology Outpatient Referral Routine Pre-op evaluation LBBB (left bundle branch block) Expected: 04/18/2024 (Approximate), Expires: 04/18/2025 documented as of this encounter Procedures Procedure Name Priority Date/Time Associated Diagnosis Comments ECG 12-LEAD Routine 04/18/2024 4:12 PM EST Pre-op evaluation LBBB (left bundle branch block) documented in this encounter Results * ECG 12 lead (04/18/2024 4:12 PM EST) Narrative Ebony Huertas MD - 04/18/2024 4:12 PM EST HR: 65 bpm. [place] 18. ??LBBB. ??High lateral and lateral repolarization disturbance. ??Normal sinus rhythm us Ebony Huertas MD ECG ORDERABLES Final Resul t documented in this encounter Visit Diagnoses Diagnosis Pre-op evaluation- Primary LBBB (left bundle branch block) Other left bundle branch block documented in this encounter Additional Health Concerns Assessment Noted Time PHQ-9 Depression Total Score: 10 023 2:09 PM EST documented as of this encounter Care Teams Seeing Eye Dog Teacher Relationship Specialty Start Date End Date Marii Mcmillan MD [address] [place] [address] PCP - General Family Medicine 07/11/21 Evelyne Green Biomedical Engineering ProfessorOrthoptist 12/09/23 documented as of this encounter
--- OUTSIDE RECORDS SUMMARY | 2024-04-18 16:34 | XMS_ITS | Encounter Summary ---
Author Organization [employer] Address 75 [facility] 7t [place] [address] Care Team Providers Care Logging Operations Inspector Name Role Phone Marii Mcmillan MD Primary Care Provider [phone] Reason for Visit * Reason Onset Date Comments Med Refill 12/01/2023 Encounter Details Date Type Department Care Team ([facility] st Contact Info) Description 12/01/2023 Telephone [facility] MEDICINE [address] [place] [address] Marii Mcmillan MD [address] [place] [address] Med Refill Social History Tobacco Use Types Packs/Day Years [...] Miscellaneous Notes * Telephone Encounter - Ron Jordan - 12/01/2023 3:31 PM EDT Tc from pt requesting a refill for oxyCODONE-acetaminophen (Percocet) 5-325 MG tablet documented in this encounter Plan of Treatment Upcoming Encounters Date Type Department Care Team (Late st Contact Info) Description 05/30/2024 2:00 PM EDT Telemedicine [facility] MED & PEDS [address] [place] [address] Leelee Castaneda, REGINA [address] [place] [address] documented as of this encounter Visit Diagnoses Not on filedocumented in this encounter Additional Health Concerns Assessment Noted Time PHQ-9 Depression Total Score: 10 023 2:09 PM EST documented as of this encounter Care Teams Logging Operations Inspector Relationship Specialty Start Date End Date Marii Mcmillan MD [address] [place] [address] PCP - General Family Medicine 07/11/21 Evelyne Green Greenstone Polisher OperatorSponge Buffer 12/09/23 documented as of this encounter
--- OUTSIDE RECORDS SUMMARY | 2024-04-18 16:34 | XMS_ITS | Encounter Summary ---
Author Organization [employer] Address 75 [facility] 7t [place] [address] Care Team Providers Care Customs Investigator Name Role Phone Marii Mcmillan MD Primary Care Provider [phone] Reason for Visit * Reason Comments Med Change Request Encounter Details Date Type Department Care Team ([facility] Contact Info) Description 05/27/2022 Refill [facility] CH[facility] MED & PEDS [address] [place] [address] Marii Mcmillan MD [address] [place] [address] Takes dietary supplements Social History Tobacco Use [...] Info) Description 05/30/2024 2:00 PM EDT Telemedicine [facility] CHC MED & PEDS [address] [place] [address] Leelee Castaneda, RN [address] [place] [address] documented as of this encounter Visit Diagnoses Diagnosis Takes dietary supplements documented in this encounter Additional Health Concerns Assessment Noted Time PHQ-9 Depression Total Score: 10 023 2:09 PM EST documented as of this encounter Care Teams Customs Investigator Relationship Specialty Start Date End Date Marii Mcmillan MD [address] [place] [address] PCP - General Family Medicine 07/11/21 Evelyne Green Protective Signal Operations SupervisorEdi Specialist 12/09/23 documented as of this encounter
--- OUTSIDE RECORDS SUMMARY | 2024-04-18 16:34 | XMS_ITS | Encounter Summary ---
Author Organization [employer] Address 75 [facility] 7t [place] [address] Care Team Providers Care Customer Support Engineer Name Role Phone Marii Mcmillan MD Primary Care Provider [phone] Reason for Visit * Reason Onset Date Comments Med Change Request 11/04/2023 Encounter Details Date Type Department Care Team ([facility] Contact Info) Description 11/04/2023 Telephone [facility] MEDICINE [address] [place] [address] Marii Mcmillan MD [address] [place] [address] Med Change Request Social History Tobacco Use Types Packs/Day [...] encounter Miscellaneous Notes * Telephone Encounter - Michael Hernandes - 11/04/2023 1:23 PM EDT Tc from patient calling to request a alternative medication for oxyCODONE- acetaminophen (Percocet) 5-325 MG tablet due to having acetaminophen states due to conditions documented in this encounter Plan of Treatment Upcoming Encounters Date Type Department Care Team (Late st Contact Info) Description 05/30/2024 2:00 PM EDT Telemedicine [facility] CHC MED & PEDS [address] [place] [address] Leelee Castaneda, RN [address] [place] [address] documented as of this encounter Visit Diagnoses Not on filedocumented in this encounter Additional Health Concerns Assessment Noted Time PHQ-9 Depression Total Score: 10 023 2:09 PM EST documented as of this encounter Care Teams Customer Support Engineer Relationship Specialty Start Date End Date Marii Mcmillan MD [address] [place] [address] PCP - General Family Medicine 07/11/21 Evelyne Green Stock Car DriverBricklayer Apprentice 12/09/23 documented as of this encounter
--- OUTSIDE RECORDS SUMMARY | 2024-04-18 16:34 | XMS_ITS | Encounter Summary ---
Author Organization [employer] Address 75 [facility] 7t [place] [address] Care Team Providers Care Fbi Profiler Name Role Phone Marii Mcmillan MD Primary Care Provider [phone] Reason for Visit * Reason Onset Date Comments Med Refill 01/28/2024 Encounter Details Date Type Department Care Team ([facility] st Contact Info) Description 01/28/2024 Telephone [facility] MEDICINE [address] [place] [address] Marii Mcmillan MD [address] [place] [address] Med Refill Social History Tobacco Use Types [...] encounter Miscellaneous Notes * Telephone Encounter - Marii Mcmillan MD - 02/08/2024 9:53 AM EST Signed * Telephone Encounter - Siobhan Richter - 02/01/2024 9:44 AM EST TC from pt requesting status on last message regarding med refill for oxyCODONE- acetaminophen (Percocet) 5-325 MG tablet . * Telephone Encounter - Miah Baird - 01/28/2024 9:58 AM EST TC from pt requesting medication refill. Medications needing refill : oxyCODONE-acetaminophen (Percocet) 5-325 MG tablet To be sent to: [facility]/pharmacy #[id number] MARY [place] - [address] [place] [address] documented in this encounter Plan of Treatment Upcoming Encounters Date Type Department Care Team (Late st Contact Info) Description 05/30/2024 2:00 PM EDT Telemedicine [facility] CHC MED & PEDS [address] [place] [address] Leelee Castaneda, RN [address] [place] [address] documented as of this encounter Visit Diagnoses Not on filedocumented in this encounter Additional Health Concerns Assessment Noted Time PHQ-9 Depression Total Score: 10 023 2:09 PM EST documented as of this encounter Care Teams Fbi Profiler Relationship Specialty Start Date End Date Marii Mcmillan MD [address] [place] [address] PCP - General Family Medicine 07/11/21 Evelyne Green City DesignerAccess Rep 12/09/23 documented as of this encounter
--- OUTSIDE RECORDS SUMMARY | 2024-04-18 16:34 | XMS_ITS | Encounter Summary ---
Author Organization [employer] Address [address] [place] [address] 7t [place] [address] Care Team Providers Care Gastroenterology Nurse Practitioner Name Role Phone Marii Mcmillan MD Primary Care Provider [phone] Reason for Referral * Imaging (STAT) - Closed Specialty Diagnoses / Procedures Referred By Contac t Referred To Contact Radiology Diagnoses Mass of right inguinal region Procedures Us Pelvis complete Gildardo Huertas MD [address] [place] [address] Phone: tel: fax: [address] Phone: tel: fax: Referral ID Status Reason Start Date Expiration Date Visits Re quested Visits Authorized [id number] Closed 09/18/2022 09/18/2023 1 1 Encounter Details Date Type Department Care Team (Late st Contact Info) Description 09/18/2022 Orders Only [facility] CHC MED & PEDS [address] [place] [address] Gildardo Huertas MD [address] [place], [place] [id number] Mass of right inguinal region (Primary Dx) Social History Tobacco Use Types Packs/Day Years [...] suspected to have Coronavirus/COVID-19? No / Unsure 09/18/2022 11:27 AM EDT documented as of this encounter Plan of Treatment Upcoming Encounters Date Type Department Care Team ([facility] st Contact Info) Description 05/30/2024 2:00 PM EDT Telemedicine [facility] MED & PEDS [address] [place] [address] Leelee Castaneda, RN [address] [place] [address] Scheduled Orders Name Type Priority Associated Diagnoses Orde r Schedule Us Pelvis complete Imaging STAT Mass of right inguinal region Expected: 09/18/2022, Expires: 09/19/2023 documented as of this encounter Procedures Procedure Name Priority Date/Time Associated Diagnosis Comments US PELVIS LIMITED Routine 09/18/2022 3:0 3 PM EDT documented in this encounter Results * US Pelvis Limited (09/18/2022 3:03 PM EDT) Anatomical Region Laterality Modality Pelvis Ultrasound 09/18/2022 3:03 PM EDT Narrative 09/25/2022 10:43 AM EDT ? [facility] ?[address] ?[place] [address] ? Ultrasound Report ? Signed ? Patient: Grimm,Manuel D ?MR#: [id number] ?? [id number] ? : 1960 ?Acct:[id number] ? Age/Sex: 62 / M ?ADM Date: 07/06/23 ? Loc: HO.US ? Attending Dr: Marii Mcmillan MD ? Ordering Physician: Marii Mcmillan MD ?? Date of Service: 09/18/22 ?? Procedure(s): US pelvic limited ?? Accession Number(s): [id number] ? cc: Marii Mcmillan MD ? EXAMINATION: ?? US RIGHT INGUINAL REGION, LIMITED/FOLLOW UP ? CLINICAL INFORMATION: ?? Right inguinal pain,? Hernia ? COMPARISON: ?? None available. ? TECHNIQUE: ?? Ultrasound the right pelvis/inguinal region ? FINDINGS: ?? Ultrasound of the right inguinal region demonstrates a 1.6 x 1.3 x 1.6 ?? cm fluid collection disrupting the fascial/muscle layers,? Ligament ?? tear versus tendon tear versus muscle. ? US/US pelvic limited ?? IMPRESSION: ?? 1.6 cm fluid collection disrupting the fascial/muscle layers in the ?? right inguinal region,? Ligament tear versus tendon tear versus muscle. ? Dictated By: ?Pam Christian MD ? Signed By: ?<Electronically signed by Pam Christian MD in OV> ?09/25/22 1039 ? DD/ 1503 ? TD/TT: ? Director Of Healthcare Systems: ? Procedure Note [place], Image - 09/25/2022 [place] [address] Ultrasound Report Signed Patient: Manuel Grimm DMR#: [id number] : 1Acct:[id number] Age/Sex: 62 / MADM Date: 09/18/22 Loc: HO.US Attending Dr: Marii Mcmillan MD Ordering Physician: Marii Mcmillan MD Date of Service: 09/18/22 Procedure(s): US pelvic limited Accession Number(s): [id number] cc: Marii Mcmillan MD EXAMINATION: US RIGHT INGUINAL REGION, LIMITED/FOLLOW UP CLINICAL INFORMATION: Right inguinal pain,? Hernia COMPARISON: None available. TECHNIQUE: Ultrasound the right pelvis/inguinal region FINDINGS: Ultrasound of the right inguinal region demonstrates a 1.6 x 1.3 x 1.6 cm fluid collection disrupting the fascial/muscle layers,? Ligament tear versus tendon tear versus muscle. US/US pelvic limited IMPRESSION: 1.6 cm fluid collection disrupting the fascial/muscle layers in the right inguinal region,? Ligament tear versus tendon tear versus muscle. Dictated By: Pam Christian MD Signed By: <Electronically signed by Pam Christian MD in OV> 09/25/22 1039 DD/ 1503 TD/TT: Director Of Healthcare Systems: [facility] External Provider IMG US PROCEDURES Final Result documented in this encounter Visit Diagnoses Diagnosis Mass of right inguinal region- Primary documented in this encounter Additional Health Concerns Assessment Noted Time PHQ-9 Depression Total Score: 10 023 2:09 PM EST documented as of this encounter Care Teams Gastroenterology Nurse Practitioner Relationship Specialty Start Date End Date Marii Mcmillan MD [address] [place] [address] PCP - General Family Medicine 07/11/21 Evelyne Green Long Goods DrierBattery Checker 12/09/23 documented as of this encounter
--- OUTSIDE RECORDS SUMMARY | 2024-04-18 16:34 | XMS_ITS | Encounter Summary ---
Author Organization [employer] Address 75 [facility] 7t [place] [address] Care Team Providers Care High Lighter Name Role Phone Marii Mcmillan MD Primary Care Provider [phone] Reason for Visit * Reason Onset Date Comments Med Refill 12/29/2023 Encounter Details Date Type Department Care Team ([facility] st Contact Info) Description 12/29/2023 Telephone [facility] MEDICINE [address] [place] [address] Marii Mcmillan MD [address] [place] [address] Med Refill Social History Tobacco Use Types [...] * Telephone Encounter - Ron Jordan - 12/29/2023 3:23 PM EDT Tc from pt requesting a refill for oxyCODONE-acetaminophen (Percocet) 5-325 MG tablet documented in this encounter Plan of Treatment Upcoming Encounters Date Type Department Care Team (Late st Contact Info) Description 05/30/2024 2:00 PM EDT Telemedicine [facility] MED & PEDS [address] [place] [address] Leelee Castaneda, REGINA [address] [place] [address] documented as of this encounter Visit Diagnoses Not on filedocumented in this encounter Additional Health Concerns Assessment Noted Time PHQ-9 Depression Total Score: 10 023 2:09 PM EST documented as of this encounter Care Teams High Lighter Relationship Specialty Start Date End Date Marii Mcmillan MD [address] [place] [address] PCP - General Family Medicine 07/11/21 Evelyne Green Business Banking ManagerCheck And Transfer Beader 12/09/23 documented as of this encounter
--- OUTSIDE RECORDS SUMMARY | 2024-04-18 16:34 | XMS_ITS | Encounter Summary ---
Author Organization [employer] Address 75 [facility] 7t [place] [address] Care Team Providers Care Underwriting Intern Name Role Phone Marii Mcmillan MD Primary Care Provider [phone] Reason for Visit * Reason Onset Date Comments CHART PREP 01/26/2024 Encounter Details Date Type Department Care Team ([facility] Contact Info) Description 01/26/2024 Telephone [facility] MED & PEDS [address] [place] [address] Marii Mcmillan MD [address] [place] [address] CHART PREP Social History Tobacco Use Types Packs/Day Years [...] encounter Miscellaneous Notes * Telephone Encounter - Jared Harrington MA - 01/26/2024 3:20 PM EST Chart Prep Labs: not done Images: done Vaccines due: yes Referrals: complete Screenings: colonoscopy Overdue care gaps: Sbirt, SDOH, PHQ-9 documented in this encounter Plan of Treatment Upcoming Encounters Date Type Department Care Team (Late st Contact Info) Description 05/30/2024 2:00 PM EDT Telemedicine [facility] CHC MED & PEDS [address] [place] [address] Leelee Castaneda, RN [address] [place] [address] documented as of this encounter Visit Diagnoses Diagnosis Polyarthralgia Pain in joint, multiple sites documented in this encounter Additional Health Concerns Assessment Noted Time PHQ-9 Depression Total Score: 10 023 2:09 PM EST documented as of this encounter Care Teams Underwriting Intern Relationship Specialty Start Date End Date Marii Mcmillan MD [address] [place] [address] PCP - General Family Medicine 07/11/21 Evelyne Green Special Education TutorSheep Rancher 12/09/23 documented as of this encounter
--- OUTSIDE RECORDS SUMMARY | 2024-04-18 16:34 | XMS_ITS | Encounter Summary ---
Author Organization [employer] Address 75 [facility] 7t [place] [address] Care Team Providers Care Slot Floorperson Name Role Phone Marii Mcmillan MD Primary Care Provider [phone] Reason for Visit * Reason Onset Date Comments call back/referral 03/18/2024 Encounter Details Date Type Department Care Team ([facility] st Contact Info) Description 03/18/2024 Telephone [facility] CHC MED & PEDS [address] [place] [address] Marii Mcmillan MD [address] [place] [address] call back/referral Social History Tobacco Use Types Packs/Day Years [...] encounter Miscellaneous Notes * Telephone Encounter - Lorena Lubin RN - 03/22/2024 9:52 AM EST TC placed to pt to inform and advise that any questions or concerns regarding upcoming total right hip replacement surgery can be addressed at upcoming pre operative appt on 04/18/[address] Huertas. Pt surgery is scheduled for 06/07/2024 with Umberto Hendrix at [facility]oped[facility]. Pt agreeable to this plan of care as the pre operative appt is six weeks prior to scheduled surgery date. * Telephone Encounter - Siobhan Richter - 03/22/2024 9:38 AM EST TC from pt returning call. * Telephone Encounter - Lorena Lubin RN - 03/21/2024 10:59 AM EST TC placed to pt and LVM to call back the office * Telephone Encounter - Chantell Zurita - 03/18/2024 11:18 AM EST Tc from pt requesting to speak to nurse. Pt has upcoming surgery in May for total hip replacementand expressed concerns due to past surgeries. Pt stated he was advise he should follow up with a calculus teacher or liver doctor prior to surgery. Contact pt at [phone] documented in this encounter Plan of Treatment Upcoming Encounters Date Type Department Care Team (Late st Contact Info) Description 05/30/2024 2:00 PM EDT Telemedicine [facility] MED & PEDS [address] [place] [address] Leelee Castaneda, RN [address] [place] [address] documented as of this encounter Visit Diagnoses Not on filedocumented in this encounter Additional Health Concerns Assessment Noted Time PHQ-9 Depression Total Score: 10 023 2:09 PM EST documented as of this encounter Care Teams Slot Floorperson Relationship Specialty Start Date End Date Marii Mcmillan MD [address] [place] [address] PCP - General Family Medicine 07/11/21 Evelyne Green Facilities EngineerInternal Communications Specialist 12/09/23 documented as of this encounter
--- OUTSIDE RECORDS SUMMARY | 2024-04-18 16:34 | XMS_ITS | Encounter Summary ---
Author Organization [employer] Address [address] [facility] [address] 7t [place] [address] Care Team Providers Care Lead Maintenance Technician Name Role Phone Marii Mcmillan MD Primary Care Provider [phone] Reason for Visit * Reason Onset Date Comments c/b requested 03/27/2023 Encounter Details Date Type Department Care Team ([facility] st Contact Info) Description 03/27/2023 Telephone [facility] MEDICINE [address] [place] [address] Marii Mcmillan MD [address] [place] [address] c/b requested Social History Tobacco Use Types Packs/Day Years [...] * Telephone Encounter - Ron Jordan - 03/27/2023 10:45 AM EST Tc from pt stating they received a call from [facility] however teletypewriter installer sees no recent encounter. Please contact to clarify. documented in this encounter Plan of Treatment Upcoming Encounters Date Type Department Care Team (Late st Contact Info) Description 05/30/2024 2:00 PM EDT Telemedicine [facility] MED & PEDS [address] [place] [address] Leelee Castaneda, REGINA [address] [place] [address] documented as of this encounter Visit Diagnoses Not on filedocumented in this encounter Additional Health Concerns Assessment Noted Time PHQ-9 Depression Total Score: 10 023 2:09 PM EST documented as of this encounter Care Teams Lead Maintenance Technician Relationship Specialty Start Date End Date Marii Mcmillan MD [address] [place] [address] PCP - General Family Medicine 07/11/21 Evelyne Green Corduroy Cutting SupervisorSteel Rule Die Maker 12/09/23 documented as of this encounter
[2024-04-18 17:47] LABS: MANUAL DIFF FLAG NO
[2024-04-18 17:57] LABS: Prothrombin Time 11.2 SEC (10.9-12.4)
[2024-04-18 17:59] LABS: Basophils Percent Auto 0.5 % (0-2); Eosinophils Absolute Auto 0.4 X10*3/uL (0.0-0.4); Hematocrit 39.4 % (42.0-52.0); Hemoglobin 14.2 g/dl (14.0-18.0); Imm Gran Abs Auto 0.01 X10*3/uL (0.00-0.03); Imm Gran Pct Auto 0.2 % (0.0-0.4); Lymphocytes Absolute Auto 1.6 X10*3/uL (1.2-4.9); Lymphocytes Percent Auto 28.9 % (20-40); Mean Corpuscular Hemoglobin 30.7 pg (27.0-33.0); Mean Corpuscular Volume 85.1 fL (80.0-98.0); Mean Platelet Volume 10.4 fL (9.4-12.4); Monocytes Absolute Auto 0.8 X10*3/uL (0.1-1.2); Monocytes Percent Auto 13.6 % (2-11); Neutrophils Absolute Auto 2.8 x10*3/uL (2.0-8.3); Neutrophils Percent Auto 49.8 % (45-73); Partial Thromboplastin Time 34.9 SEC (26.0-36.8); Platelet Count 118 X10*3/uL (160-400); Red Blood Count 4.63 X10*6/uL (4.60-5.80); Red Cell Distribution Width 12.8 % (11.0-16.0); White Blood Count 5.6 X10*3/uL (4.8-10.8)
[2024-04-18 18:17] LABS: Alanine Aminotransferase 25 U/L (0-40); Albumin Level 4.1 g/dL (3.5-5.0); Alkaline Phosphatase 53 U/L (39-117); Anion Gap 9 (12-20); Aspartate Amino Transferase 31 U/L (5-37); Bilirubin Total 0.7 mg/dL (0.0-1.0); Blood Urea Nitrogen 16 mg/dL (9-16); Carbon Dioxide 22 mmol/L (22-29); Chloride 110 mmol/L (96-108); Estimated Glomerular Filt Rate > 60; Glucose Random 90 mg/dL (60-115); Sodium 137 mmol/L (135-145); Total Protein 7.3 g/dL (6.5-8.0)
[2024-04-19 08:48] LABS: HIV AB/AG Nonreactive (Nonreactive); HIV Num 1 0.06 S/CO (0.00-0.99)
== END 2024-04-18 15:01 | disposition home or self-care (01) ==
LOC: HO.CHCLDS 15:00
PROVIDERS: Visit Provider Internal Medicine
DX: Z01.818 Encounter for other preprocedural examination (principal)
CPT/HCPCS: 36415; 80053; 84134; 84443; 85025; 85610; 85730; 87389

== ENCOUNTER 2024-05-09 | Outpatient (REF) | payer MEDICAID, SELFPAY ==
[2024-05-09 12:00] VITALS: BP 116/73; PULSE 74; RESP 16; O2SAT 97; BMI 21.9
--- NOTE | 2024-05-09 12:53 | HO.ANESPROP2 ---
HPI - Anesthesia Eval Consult details Narrative: 63yo M for Right Hip Total Replacement, 06/21/24 No recent illness No CP/SOB with >4 mets. Some recurring CP with anxiety. Afib, LBBB: no cardiology - referral pending - previously on asa Cirrhosis: no GI - referral pending COPD PMFSH Active Problems Active Problems: All Active Problems Osteoarthritis of right hip (Acute) Liver cirrhosis (Acute) Iliopsoas bursitis of right hip (Acute) Right groin pain (Acute) Pain in left shoulder (Acute) HERNANDO positive (Acute) Thrombocytopenia (Acute) Hypertension (Acute) Cirrhosis (Acute) Past Medical History Medical History (Updated 05/23/24 @ 13:44 by Hermes Toussaint MD) Wears dentures Legally blind in left eye, as defined in [place] Deafness in right ear Arthritis Back pain Hx of hepatitis C Hx of tuberculosis PTSD (post-traumatic stress disorder) COPD (chronic obstructive pulmonary disease) Asthma Left bundle branch block (LBBB) Thrombocytopenia Afib Glaucoma Hypertension Anxiety Depression Cirrhosis Family History Family History Mother Breast cancer Rheumatoid arthritis Family history of problems with anesthesia: No Surgical History Surgical History History of tooth extraction (~2002) History of cardiac catheterization (~2009) History of ear surgery (~1990) History of cholecystectomy (~2009) H/O abdominal surgery S/P LASIK surgery of both eyes History of Problems with Anesthesia: No Social History Social History Household Members: Friend(s) Household Members Other:: niece, adult Housing: House Are you a primary home care music therapist to a significant other at home: No Do you presently have visiting nurse or other home services: No 75 years or older and lives alone: No Patient Tobacco Use Status: Never used Tobacco Tobacco use type: Cigarette Second Hand Smoke Exposure: Yes Substance Use Type: Marijuana service: No Current occupational status: disabled Meds Allergies Allergy/AdvReac Type Severity Reaction Status Date / Time NSAIDS (Non-Steroidal Allergy Severe advised Verified 06/02/24 09:39 Anti-Inflamma not to take due to bleeding Penicillins [PENICILLINS] Allergy Severe Rash, hives Verified 06/02/24 09:39 aspirin [ASA] Allergy Unknown Unknown Verified 06/02/24 09:39 but cannot take naproxen [NAPROXEN] Allergy Unknown ABDOMINAL Verified 06/02/24 09:39 PAIN, ABD PAIN tuberculin, purified protein Allergy Unknown hx TB as a Verified 06/02/24 09:39 deriva child [TB TEST] acetaminophen [From TYLENOL] AdvReac Unknown Abdominal Verified 06/02/24 09:39 Pain mesalamine [From ASACOL] AdvReac Unknown worsening Verified 06/02/24 09:39 abdominal pain pseudoephedrine AdvReac Unknown advised Verified 06/02/24 09:39 [From SUDAFED] not to take ibuprofen [From Motrin] AdvReac Abdominal Verified 06/02/24 09:39 Pain Home Medications ?Medication ?Instructions ?Recorded ?Confirmed ?Last Taken ?Type atorvastatin 40 mg tablet (Lipitor) 1 tab PO DAILY 08/26/21 06/02/24 Unknown History hydrochlorothiazide 12.5 mg tablet 1 tab PO DAILY 08/26/21 06/02/24 Unknown History tamsulosin 0.4 mg capsule 1 cap PO DAILY 08/26/21 06/02/24 Unknown History potassium citrate 10 mEq (1,080 10 meq PO DAILY 06/27/22 06/02/24 Unknown History mg) tablet,extended release oxycodone-acetaminophen 5 mg-325 1 tab PO Q8H PRN severe pain 05/07/23 06/02/24 Unknown History mg tablet phytonadione (vitamin K1) 100 mcg 100 mcg PO DAILY 05/09/24 06/02/24 Unknown History tablet turmeric root extract 150 1 tab PO DAILY 05/09/24 06/02/24 Unknown History mg-clementina root extract 25 mg chewable tablet Exam Height,Weight and Vital Signs: Height 5 ft 6 in Weight 61.5 kg Last Vital Signs Pulse 74 05/09/24 12:00 Resp 16 05/09/24 12:00 BP 116/73 05/09/24 12:00 Pulse Ox 97 05/09/24 12:00 O2 Del Method Room Air 05/09/24 12:00 Pertinent Lab Results Pertinent Lab Results: Laboratory Tests 04/18/24 15:15 WBC 5.6 Hgb 14.2 Hct 39.4 L Plt Count 118 L Sodium 137 Potassium 4.0 Chloride 110 H Carbon Dioxide 22 BUN 16 Creatinine 0.77 Airway Mallampati Class: II TM Dist: >3cm Neck ROM: Full (4 x Right ear surgery) Denture: Upper Loose/Missing/Broken Teeth: Yes (No lower teeth) Heart: RRR Lungs: CTAB Assessment and Plan Assessment Anesthesia Assessment: Anesthesia Plan Discussed and PAT Visit Final Anesthetic Review Family History of Problems with Anesthesia: No History of Problems with Anesthesia: No
[2024-05-09 15:02] LABS: MRSA Nasal PCR NEGATIVE (Negative); SA Nasal PCR NEGATIVE (Negative)
[2024-06-02 11:56] LABS: Anion Gap 11 (12-20); Blood Urea Nitrogen 18 mg/dL (9-16); Calcium 9.8 mg/dL (8.4-10.2); Carbon Dioxide 25 mmol/L (22-29); Chloride 109 mmol/L (96-108); Creatinine Clr Calc Pharmacy 85.4; Estimated Glomerular Filt Rate > 60; Glucose Random 77 mg/dL (60-115); Potassium 4.2 mmol/L (3.3-5.1); Sodium 141 mmol/L (135-145)
--- OUTSIDE RECORDS SUMMARY | 2024-09-06 15:51 | XMS_ITS | Encounter Summary ---
Author Organization [employer] Address [address] [facility] 7t [place] [address] Care Team Providers Care Heel Cementer Name Role Phone Marii Mcmillan MD Primary Care Provider [phone] Reason for Visit * Reason Onset Date Comments Referral 03/12/2023 Encounter Details Date Type Department Care Team ([facility] Contact Info) Description 03/12/2023 Telephone [facility] CHC MED & PEDS [address] [place] [address] Marii Mcmillan MD [address] [place] [address] Referral Social History Tobacco Use Types Packs/Day [...] 03/12/2023 4:18 PM EST Referral [place] [facility] [place] * Telephone Encounter - Brooke Corral - 03/12/2023 1:49 PM EST Tc from [facility] office of [facility] [place] has not received referral. documented in this encounter Plan of Treatment Upcoming Encounters Date Type Department Care Team (Late st Contact Info) Description 09/29/2024 10:30 AM EDT Clinical Support [facility] MED & PEDS [address] [place] [address] Leelee Castaneda, REGINA [address] [place] [address] 10/10/2024 11:00 AM EDT Clinical Support [facility] MED & PEDS [address] [place] [address] documented as of this encounter Visit Diagnoses Not on filedocumented in this encounter Additional Health Concerns Assessment Noted Time PHQ-9 Depression Total Score: 10 023 2:09 PM EST documented as of this encounter Care Teams Heel Cementer Relationship Specialty Start Date End Date Marii Mcmillan MD [address] [place] [address] PCP - General Family Medicine 07/11/21 Evelyne Green Assistant Professor Of SociologyCar Hiker 12/09/23 documented as of this encounter
== END 2024-05-09 00:01 | disposition home or self-care (01) ==
LOC: HO.PAT
PROVIDERS: Physician Assistant; PCP Family Medicine; Visit Provider Orthopaedic Surgery
DX: Z01.818 Encounter for other preprocedural examination (principal); M16.11 Unilateral primary osteoarthritis, right hip
CPT/HCPCS: 36415; 80048; 86850; 86900; 86901; 87640; 87641

== ENCOUNTER → 2024-05-09 10:20 | Outpatient (BNVA) | payer MEDICAID, SELFPAY | PROVIDERS: PCP Family Medicine | DX: Z01.818 Encounter for other preprocedural examination (principal) ==

== ENCOUNTER 2024-05-16 11:33 | Outpatient (AMB) | payer MEDICAID, SELFPAY ==
--- NOTE | 2024-05-16 11:33 | A.OFFVIS_ITS ---
Intake Visit Reasons: Discuss Colonoscopy Intake Note: Michael presents as a follow up telehealth, CC: He states that he has put this appt off and he is ready to have surgery and will not be cleared unless he has a liver biopsy. He was told that he has some issues with his bowels where they are slowing down. Aesthetician Required: No Allergies NSAIDS (Non-Steroidal Anti-Inflamma Allergy (Severe, Verified 05/16/24 11:33) advised not to take due to bleeding Penicillins [PENICILLINS] Allergy (Severe, Verified 05/16/24 11:33) Rash, hives aspirin [ASA] Allergy (Unknown, Verified 05/16/24 11:33) Unknown but cannot take naproxen [NAPROXEN] Allergy (Unknown, Verified 05/16/24 11:33) ABDOMINAL PAIN, ABD PAIN tuberculin, purified protein deriva [TB TEST] Allergy (Unknown, Verified 05/16/24 11:33) hx TB as a child acetaminophen [From TYLENOL] Adverse Reaction (Unknown, Verified 05/16/24 11:33) Abdominal Pain mesalamine [From ASACOL] Adverse Reaction (Unknown, Verified 05/16/24 11:33) worsening abdominal pain pseudoephedrine [From SUDAFED] Adverse Reaction (Unknown, Verified 05/16/24 11:33) advised not to take ibuprofen [From Motrin] Adverse Reaction (Verified 05/16/24 11:33) Abdominal Pain HPI HPI Discuss Colonoscopy: Details: 63 yr old m wih cirrhosis called for assessment RECAP: He had hx of hep C cured with interferon in the past Labs: mild low plt, normal INR< nml LFT< HERNANDO elevated, Hep C ab pos INTERIM: He is due to have hip surgery he needs evaluation prior to that he does bleed easily -he has mild thrombocytopenia no nausea or vomiting no diarrhea or constipation A/P: 1/ compensated cirrhosis, h of Hep C with interferon treatment in past, MELD 3.0 is only 6, no ascites on imaging last year PLAN: 1/ He is low risk for hip surgery, but he needs an up to date US, also I will check vitamin and mineral levels in case he has defc which maybe contributing to his bleeding, vit C def or zn defc is common 2/ EGD at future point, he has low risk for significant varices at this time 3/ discuss colonoscopy at next visit [facility] Medical History (Updated 05/09/24 @ 12:54 by Gege Sandoval RN) Wears dentures Legally blind in left eye, as defined in [place] Deafness in right ear Arthritis Back pain Hx of hepatitis C Hx of tuberculosis PTSD (post-traumatic stress disorder) COPD (chronic obstructive pulmonary disease) Asthma Left bundle branch block (LBBB) Thrombocytopenia Afib Glaucoma Hypertension Anxiety Depression Cirrhosis Surgical History (Updated 05/09/24 @ 12:46 by Gege Sandoval, RN) History of tooth extraction (~2002) History of cardiac catheterization (~2009) History of ear surgery (~1990) History of cholecystectomy (~2009) H/O abdominal surgery S/P LASIK surgery of both eyes Family History Mother Breast cancer Rheumatoid arthritis Social History (Updated 05/09/24 @ 12:21 by Gege Sandoval RN) Household Members: Friend(s) Household Members Other:: niece, adult Housing: House Are you a primary physician assistant primary care to a significant other at home: No Do you presently have visiting nurse or other home services: No 75 years or older and lives alone: No Patient Tobacco Use Status: Former Tobacco user Tobacco use type: Cigarette Second Hand Smoke Exposure: No Substance Use Type: Marijuana service: No Current occupational status: disabled Telehealth Telehealth Telehealth Platform: Telephone Location of provider rendering services: practice address Location of patient: address on file Patient Identification confirmed using: Name, : Yes Telehealth method: voice only Patient verbally consented to treatment: Yes Patient verbally consented to billing insurance company: Yes Patient informed of any privacy concerns related to visit: Yes Minutes spent on Phone/Video with Pt.: 7 Assessment & Plan Assessment & Plan (1) Liver cirrhosis: Code(s): K74.60 - Unspecified cirrhosis of liver Category: Medical Plan: as above Orders: Orders Prothrombin Time INR Today K74.60 - Unspecified cirrhosis of liver Complete Blood Count Auto Diff Today K74.60 - Unspecified cirrhosis of liver Vitamin B1 Today K74.60 - Unspecified cirrhosis of liver Vitamin B6 Today K74.60 - Unspecified cirrhosis of liver Vitamin C Today K74.60 - Unspecified cirrhosis of liver Vitamin E Today K74.60 - Unspecified cirrhosis of liver Magnesium Today K74.60 - Unspecified cirrhosis of liver Comprehensive Met. Panel Today K74.60 - Unspecified cirrhosis of liver, K75.81 - Nonalcoholic steatohepatitis (JAEGER) Vitamin A Today K74.60 - Unspecified cirrhosis of liver Vitamin B12 and Folate Today K74.60 - Unspecified cirrhosis of liver Vitamin B3 (Niacin) Today K74.60 - Unspecified cirrhosis of liver Vitamin B5 (Pantothenic Acid) Today K74.60 - Unspecified cirrhosis of liver Vitamin D 25-OH Total Today K74.60 - Unspecified cirrhosis of liver Vitamin K1 Today K74.60 - Unspecified cirrhosis of liver Zinc Today K74.60 - Unspecified cirrhosis of liver Ferritin Today K74.60 - Unspecified cirrhosis of liver US abdomen [place] w elastography Today K74.60 - Unspecified cirrhosis of liver, K75.81 - Nonalcoholic steatohepatitis (JAEGER) Coding Level of Care Code Tele Est Pt Level 3 (95250) Diagnoses Liver cirrhosis K74.60
--- OUTSIDE RECORDS SUMMARY | 2024-05-16 13:45 | XMS_ITS | Encounter Summary ---
Author Organization [employer] Address [address] [facility] [address] 7[address] [place] [address] Care Team Providers Care Fire Prevention Officer Name Role Phone Marii Mcmillan MD Primary Care Provider [phone] Reason for Visit * Reason Onset Date Comments PT1 05/15/2023 Encounter Details Date Type Department Care Team ([facility] st Contact Info) Description 05/15/2023 Telephone [facility] MEDICINE [address] [place] [address] Marii Mcmillan MD [address] [place] [address] PT1 Social History Tobacco Use Types Packs/Day [...] visits) ( x monthly, weekly, daily) Address: [address] [place] [address] Facility: [facility] Wheel Chair: NO Shirt Hemmer Needed: NO Address and phone confirmed by Evelyne CHAWLA documented in this encounter Plan of Treatment Upcoming Encounters Date Type Department Care Team (Late st Contact Info) Description 05/30/2024 2:00 PM EDT Telemedicine [facility] MED & PEDS [address] [place] [address] Leelee Castaneda, REGINA [address] [place] [address] documented as of this encounter Visit Diagnoses Not on filedocumented in this encounter Additional Health Concerns Assessment Noted Time PHQ-9 Depression Total Score: 10 023 2:09 PM EST documented as of this encounter Care Teams Fire Prevention Officer Relationship Specialty Start Date End Date Marii Mcmillan MD [address] [place] [address] PCP - General Family Medicine 07/11/21 Evelyne Green Char Dust Cleaner And SalvagerMarble Cutter Operator 12/09/23 documented as of this encounter
--- OUTSIDE RECORDS SUMMARY | 2024-05-16 13:45 | XMS_ITS | Encounter Summary ---
Author Organization [employer] Address [address] [facility] 7t [place] [address] Care Team Providers Care Contour Band Saw Operator Vertical Name Role Phone Marii Mcmillan MD Primary Care Provider [phone] Encounter Details Date Type Department Care Team ([facility] st Contact Info) Description 05/09/2024 Orders Only GENERIC EXTERNAL DATA DEPARTMENT Provider, Generic External Data Social History Tobacco Use Types Packs/Day Years [...] Info) Description 05/30/2024 2:00 PM EDT Telemedicine [facility] MED & PEDS [address] [place] [address] Leelee Castaneda, RN [address] [place] [address] documented as of this encounter Procedures Procedure Name Priority Date/Time Associated Diagnosis Comments MRSA NASAL SCREEN Routine 05/09/2024 1:0 0 PM EST documented in this encounter Results * MRSA Nasal Screen (05/09/2024 1:00 PM EST) MRSA Nasal PCR NEGATIVE Negative [facility] SA Nasal PCR NEGATIVE Negative [facility] MRSA Interpretation SEE NOTE [facility] Comment:MRSA target DNA not detected; SA target DNA not detected.A MRSA NEGATIVE, SA NEGATIVE test result does not precludeMRSA or SA nasal colonization. 05/09/2024 1:00 PM EST 05/09/2024 1:18 PM EST us Generic External Data Provider LAB MICROBIOLOGY - GENERAL ORDERABLES Final Result [facility] [address] [place] [address] [phone] documented in this encounter Visit Diagnoses Not on filedocumented in this encounter Additional Health Concerns Assessment Noted Time PHQ-9 Depression Total Score: 10 023 2:09 PM EST documented as of this encounter Care Teams Contour Band Saw Operator Vertical Relationship Specialty Start Date End Date Marii Mcmillan MD [address] [place] [address] PCP - General Family Medicine 07/11/21 Evelyne Green Title I Math TutorAnimal Cruelty Investigator 12/09/23 documented as of this encounter
--- OUTSIDE RECORDS SUMMARY | 2024-05-16 13:45 | XMS_ITS | Encounter Summary ---
Author Organization [employer] Address 75 [facility] 7t [place] [address] Care Team Providers Care Web Designer Developer Name Role Phone Marii Mcmillan MD Primary Care Provider [phone] Reason for Visit * Reason Onset Date Comments Appointment Request 04/22/2023 Encounter Details Date Type Department Care Team ([facility] Contact Info) Description 04/22/2023 Telephone [facility] MED & PEDS [address] [place] [address] Marii Mcmillan MD [address] [place] [address] Appointment Request Social History Tobacco Use Types [...] was scheduled for SDC apt today in [facility] but, due to car not starting Pt [...] morning but, Pt would rather come to [facility]. Pt is advised to call back tomorrow [...] (Car wont Start) Please contact pt @ [phone] documented in this encounter Plan of Treatment Upcoming Encounters Date Type Department Care Team ([facility] st Contact Info) Description 05/30/2024 2:00 PM EDT Telemedicine [facility] MED & PEDS [address] [place] [address] Leelee Castaneda, RN [address] [place] [address] documented as of this encounter Visit Diagnoses Not on filedocumented in this encounter Additional Health Concerns Assessment Noted Time PHQ-9 Depression Total Score: 10 023 2:09 PM EST documented as of this encounter Care Teams Web Designer Developer Relationship Specialty Start Date End Date Marii Mcmillan MD [address] [place] [address] PCP - General Family Medicine 07/11/21 Evelyne Green Jig Bore Tool MakerNational Sales Consultant 12/09/23 documented as of this encounter
--- OUTSIDE RECORDS SUMMARY | 2024-05-16 13:45 | XMS_ITS | Encounter Summary ---
Author Organization [employer] Address [address] [place] [address] 7t [place] [address] Care Team Providers Care Die Cast Patternmaker Name Role Phone Marii Mcmillan MD Primary Care Provider [phone] Reason for Visit * Reason Comments Med Refill Encounter Details Date Type Department Care Team (Late Contact Info) Description 04/08/2022 Refill [facility] MED & PEDS [address] [place] [address] Marii Mcmillan MD [address] [place] [address] Vitamin deficiency, unspecified Social History Tobacco Use [...] Description 05/30/2024 2:00 PM EDT Telemedicine [facility] MED & PEDS [address] [place] [address] Leelee Castaneda RN [address] [place] [address] documented as of this encounter Visit Diagnoses Diagnosis Vitamin deficiency, unspecified documented in this encounter Care Teams Die Cast Patternmaker Relationship Specialty Start Date End Date Marii Mcmillan MD [address] [place] [address] PCP - General Family Medicine 07/11/21 Evelyne Green Health Education CoordinatorHazardous Materials Waste Technician 12/09/23 documented as of this encounter
--- OUTSIDE RECORDS SUMMARY | 2024-05-16 13:45 | XMS_ITS | Encounter Summary ---
Author Organization [employer] Address [address] [facility] 7t [place] [address] Care Team Providers Care Taxonomist Name Role Phone Marii Mcmillan MD Primary Care Provider [phone] Reason for Visit * Reason Onset Date Comments Referral 05/20/2022 Encounter Details Date Type Department Care Team ([facility] st Contact Info) Description 05/20/2022 Telephone [facility] MED & PEDS [address] [place] [address] Marii Mcmillan MD [address] [place] [address] Referral Social History Tobacco Use Types Packs/Day [...] made on 02/04/2022. Please contact pt at [phone] documented in this encounter Plan of Treatment Upcoming Encounters Date Type Department Care Team ([facility] st Contact Info) Description 05/30/2024 2:00 PM EDT Telemedicine [facility] MED & PEDS [address] [place] [address] Leelee Castaneda, RN [address] [place] [address] documented as of this encounter Visit Diagnoses Not on filedocumented in this encounter Care Teams Taxonomist Relationship Specialty Start Date End Date Marii Mcmillan MD [address] [place] [address] PCP - General Family Medicine 07/11/21 Evelyne Green System Sales ConsultantBackup Engineer 12/09/23 documented as of this encounter
--- OUTSIDE RECORDS SUMMARY | 2024-05-16 13:45 | XMS_ITS | Encounter Summary ---
Author Organization [employer] Address [address] [facility] 7t [place] [address] Care Team Providers Care City Route Driver Name Role Phone Marii Mcmillan MD Primary Care Provider [phone] Encounter Details Date Type Department Care Team [...] is your housing situation today? I have advid drew 01/16/[address] you [...] [facility] MED & PEDS [address] [place] [address] Leelee Castaneda, RN [address] [place] [address] documented as of this encounter Visit Diagnoses Not on filedocumented in this encounter Additional Health Concerns Assessment Noted Time PHQ-9 Depression Total Score: 10 023 2:09 PM EST documented as of this encounter Care Teams City Route Driver Relationship Specialty Start Date End Date Marii Mcmillan MD [address] [place] [address] PCP - General Family Medicine 07/11/21 Evelyne Green Baking AssistantProduction Metal Sprayer 12/09/23 documented as of this encounter
--- OUTSIDE RECORDS SUMMARY | 2024-05-16 13:45 | XMS_ITS | Encounter Summary ---
Author Organization [employer] Address [address] [place] [address] 7t [place] [address] Care Team Providers Care Forensic Psychiatrist Name Role Phone Marii Mcmillan MD Primary Care Provider [phone] Reason for Referral * Imaging (STAT) - Closed Specialty Diagnoses / Procedures Referred By Contac t Referred To Contact Radiology Diagnoses Mass of right inguinal region Procedures Us Pelvis complete Gildardo Huertas MD [address] [place] [address] Phone: tel: fax: [address] Phone: tel: fax: Referral ID Status Reason Start Date Expiration Date Visits Re quested Visits Authorized [id number] Closed 09/18/2022 09/18/2023 1 1 Encounter Details Date Type Department Care Team (Late st Contact Info) Description 09/18/2022 Orders Only [facility] MED & PEDS [address] [place] [address] Gildardo Huertas MD [address] [place], [place] [id number] Mass of right inguinal region (Primary Dx) [...] Upcoming Encounters Date Type Department Care Team ([facility] st Contact Info) Description 05/30/2024 2:00 PM EDT Telemedicine [facility] MED & PEDS [address] [place] [address] Leelee Castaneda, RN [address] [place] [address] Scheduled Orders Name Type Priority Associated Diagnoses [...] EDT Narrative 09/25/2022 10:43 AM EDT ? [facility] ?[address] ?[place] [address] ? Ultrasound Report ? Signed ? Patient: Grimm,Manuel D ?MR#: [id number] ?? [id number] ? : 1960 ?Acct:[id number] ? Age/Sex: 62 / M ?ADM Date: 07/06/23 ? Loc: HO.US ? Attending Dr: Marii Mcmillan MD ? Ordering Physician: Marii Mcmillan MD ?? Date of Service: 09/18/22 ?? Procedure(s): US pelvic limited ?? Accession Number(s): [id number] ? cc: Marii Mcmillan MD ? EXAMINATION: [...] 1039 ? DD/ 1503 ? TD/TT: ? Electronic Controls Repairer Supervisor: ? Procedure Note Kaiden, Image - 09/25/2022 [place] [address] Ultrasound Report Signed Patient: Manuel Grimm DMR#: [id number] : 1Acct:[id number] Age/Sex: 62 / MADM Date: 09/18/22 Loc: HO.US Attending Dr: Marii Mcmillan MD Ordering Physician: Marii Mcmillan MD Date of Service: 09/18/22 Procedure(s): US pelvic limited Accession Number(s): [id number] cc: Marii Mcmillan MD EXAMINATION: US RIGHT [...] in OV> 09/25/22 1039 DD/ 1503 TD/TT: Electronic Controls Repairer Supervisor: [facility] External Provider IMG US PROCEDURES Final Result documented in this encounter Visit Diagnoses Diagnosis Mass of right inguinal region- Primary documented in this encounter Additional Health Concerns Assessment Noted Time PHQ-9 Depression Total Score: 10 023 2:09 PM EST documented as of this encounter Care Teams Forensic Psychiatrist Relationship Specialty Start Date End Date Marii Mcmillan MD [address] [place] [address] PCP - General Family Medicine 07/11/21 Evelyne Green Fence RiderMail Order Clerk 12/09/23 documented as of this encounter
--- OUTSIDE RECORDS SUMMARY | 2024-05-16 13:45 | XMS_ITS | Encounter Summary ---
Author Organization [employer] Address [address] [facility] 7t [place] [address] Care Team Providers Care Nurseryman Assistant Name Role Phone Marii Mcmillan MD Primary Care Provider Reason for Visit * Reason Onset Date Comments Referral 03/12/2023 Encounter Details Date Type Department Care Team ([facility] Contact Info) Description 03/12/2023 Telephone [facility] MED & PEDS [address] [place] [address] Marii Mcmillan MD [address] [place] [address] Referral Social History Tobacco Use Types Packs/Day [...] 03/12/2023 4:18 PM EST [place] [facility] [place] * Telephone Encounter - Brooke Corral - 03/12/2023 1:49 PM EST T[facility] from [facility] office [place] [facility] [place] has not received referral. documented in this encounter Plan of Treatment Upcoming Encounters Date Type Department Care Team (Late st Contact Info) Description 05/30/2024 2:00 PM EDT Telemedicine [facility] MED & PEDS [address] [place] [address] Leelee Castaneda, RN [address] [place] [address] documented as of this encounter Visit Diagnoses Not on filedocumented in this encounter Additional Health Concerns Assessment Noted Time PHQ-9 Depression Total Score: 10 023 2:09 PM EST documented as of this encounter Care Teams Nurseryman Assistant Relationship Specialty Start Date End Date Marii Mcmillan MD [address] [place] [address] PCP - General Family Medicine 07/11/21 Evelyne Green Operations Staff Specialist SecurityHog Ribber 12/09/23 documented as of this encounter
--- OUTSIDE RECORDS SUMMARY | 2024-05-16 13:45 | XMS_ITS | Clinical Summary ---
Author Organization [employer] Address [address] [facility] [address] [place] [address] Care Team Providers Care Massage Therapy Instructor Name Role Phone Marii Mcmillan MD Primary Care Provider [phone] Allergies Active Allergy Reactions Criticality Noted Date [...] to 28 days. 112 tablet 025 2024 Discontinued(R eorder (will not trigger notification to Pharmacy)) oxyCODONE-acetami nophen (Percocet) 5-325 MG tabletIndications :Polyarthralgia Take 1 tablet by mouth every 6 (six) hours if needed for severe pain for up to 28 days. 112 tablet 025 2024 Discontinued(R eorder (will not trigger notification [...] Assessment & Plan (07/07/2023 3:56 PM EDT): employment service specialist will further monitor hip pain. Assessment & Plan (04/21/2023 1:34 PM EST): Patient with Hx of Hip Arthritis stated that medications are not improving hip pain. Therefore, will discontinue prior medications, and will be prescribing Oxycodone. Recommended to follow up with an in-person visit. Assessment & Plan (02/26/2023 3:51 PM EST): [facility] compplaints of R Hip Pain will [...] Encounters Date Type Department Care Team Description 05/09/2024 Orders Only GENERIC EXTERNAL DATA DEPARTMENT Provider, Generic External Data 04/29/2024 Orders Only [facility] [address] [place] [address] Star Dick MD Polyarthralgia 04/27/2024 Refill [facility] [address] [place] [address] Marii Mcmillan MD Polyarthralgia 04/21/2024 Telephone [facility] [address] [place] [address] Gildardo Huertas MD 04/18/2024 2:00 PM EST Office Visit [facility] [address] [place] [address] Gildardo Huertas MD Pre-op evaluation (Primary Dx); LBBB (left bundle branch block) 04/18/2024 Travel 03/29/2024 Refill [facility] [address] [place] [address] Marii Mcmillan MD Polyarthralgia 03/18/2024 Telephone [facility] [address] [place] [address] Marii Mcmillan MD call back/referral 03/10/2024 2:00 PM EST Clinical Support [facility] [address] [place] [address] Leelee Castaneda RN Right hip pain 03/10/2024 Travel 03/03/2024 Telephone [facility] [address] [place] [address] Marii Mcmillan MD Pre-op Exam 02/29/2024 Refill [facility] [address] [place] [address] Marii Mcmillan MD Polyarthralgia from Last 3 Months Immunizations Name Administration [...] Info) Description 05/30/2024 2:00 PM EDT Telemedicine [facility] [address] [place] [address] Leelee Castaneda, RN [address] [place] [address] Health Maintenance Due Date Last Done Comments [...] Depression Screening 05/24/2023 05/23/2022, 05/23/2022 COVID-19 Vaccine (1 - 2023-2 5 season) 2023 SDOH Screening 06/30/2024 07/01/2023 Tobacco Screening 04/18/2025 04/18/2024 Lipid Panel 07/26/2026 07/26/2021 DTaP/Tdap/Td Vaccines (2 - T d or Tdap) 07/16/2033 07/17/2023 Hepatitis A Vaccines Completed 07/17/2023, 06/27/2022 Influenza Vaccine Completed 11/30/2023, 11/18/2011 HIV Screening Completed 04/18/2024, 07/26/2021 HIB Vaccines Aged Out No longer eligi [...] SCREEN Routine 05/09/2024 1:0 0 PM EST ECG 12-LEAD Routine 04/18/2024 4:12 PM EST Pre-op evaluation LBBB (left bundle branch block) APTT Routine 04/18/2024 3:15 PM EST Pre-op evaluation TSH W/REFLEX TO FT4 Routine 04/18/2024 3 :15 PM EST Pre-op evaluation HIV 1/2 ANTIGEN/ANTIBODY, FOURTH GENERATION W/RFL Routine 04/18/2024 3:15 PM EST Pre-op evaluation PREALBUMIN Routine 04/18/2024 3:15 PM EST Pre-op evaluation PROTHROMBIN TIME-INR Routine 04/18/2024 3:15 PM EST Pre-op evaluation COMPREHENSIVE METABOLIC PANEL Routine 04/18/2024 3:15 PM EST Pre-op evaluation CBC WITH AUTO DIFFERENTIAL Routine 04/18/2024 3:15 PM EST Pre-op evaluation POCT MITCHELL-14 URINE DRUG SCREEN Routine 03/10/2024 2:25 PM EST Right hip pain LIPID PANEL, STANDARD Routine 07/26/2021 10:58 AM EDT from Last 3 Months or Most Recently Relevant to Health Maintenance Results * MRSA Nasal Screen (05/09/2024 1:00 PM EST) MRSA Nasal PCR NEGATIVE Negative [facility] SA Nasal PCR NEGATIVE Negative [facility] MRSA Interpretation SEE NOTE [facility] Comment:MRSA target DNA not detected; SA target DNA not detected.A MRSA NEGATIVE, SA NEGATIVE test result does not precludeMRSA or SA nasal colonization. 05/09/2024 1:00 PM EST 05/09/2024 1:18 PM EST us Generic External Data Provider LAB MICROBIOLOGY - GENERAL ORDERABLES Final Result [facility] [address] [place] [phone] * ECG 12 lead (04/18/2024 4:12 PM EST) Narrative Gildardo Huertas MD - 04/18/2024 4:12 PM EST HR: 65 bpm. [place] 18. ??LBBB. ??High lateral and lateral repolarization disturbance. ??Normal sinus rhythm us Gildardo Huertas MD ECG ORDERABLES Final Resul t * TSH W/Reflex to FT4 (04/18/2024 3:15 PM EST) TSH reflex Free T4 2.40 0.32 - 4.0 uIU/mL [facility] Blood Venous blood specimen / Unknown 04/18/2024 3:15 PM EST 04/18/2024 5:39 PM EST us Gildardo Huertas MD LAB BLOOD ORDERABLES Final Result [facility] [address] [place] [address] [phone] * (ABNORMAL) CBC auto differential (04/18/2024 3:15 PM EST) Pathologist [facility] White Blood Count 5.6 4.8 - 10.8 X10*3/uL [facility] Red Blood Count 4.63 4.60 - 5.80 X10*6/uL [facility] Hemoglobin 14.2 14.0 - 18.0 g/dl [facility] Hematocrit 39.4(L) 42.0 - 52.0 % [facility] Mean Corpuscular Volume 85.1 80.0 - 98.0 fL [facility] Mean Corpuscular Hemoglobin 30.7 27.0 - 33.0 pg [facility] Mean Corpuscular HGB Conc 36.0 31.0 - 36.0 g/dl [facility] Red Cell Distribution Width 12.8 11.0 - 16.0 % [facility] Platelet Count 118(L) 160 - 400 X10*3/uL [facility] Mean Platelet Volume 10.4 9.4 - 12.4 fL [facility] Neutrophils Percent Auto 49.8 45 - 73 % [facility] Imm Gran Pct Auto 0.2 0.0 - 0.4 % [facility] Lymphocytes Percent Auto 28.9 20 - 40 % [facility] Monocytes Percent Auto 13.6(H) 2 - 11 % [facility] Eosinophils Percent Auto 7.0(H) 0 - 4 % [facility] Basophils Percent Auto 0.5 0 - 2 % [facility] NRBC Pct Auto 0.0 0.0 - 0.2 /100WBC [facility] Neutrophils Absolute Auto 2.8 2.0 - 8.3 x10*3/uL [facility] Imm Gran Abs Auto 0.01 0.00 - 0.03 X10*3/uL [facility] Lymphocytes Absolute Auto 1.6 1.2 - 4.9 X10*3/uL [facility] Monocytes Absolute Auto 0.8 0.1 - 1.2 X10*3/uL [facility] Eosinophils Absolute Auto 0.4 0.0 - 0.4 X10*3/uL [facility] Basophils Absolute Auto 0.0 0.0 - 0.2 X10*3/uL [facility] NRBC Abs Auto 0.000 0.0 - 0.012 X10*3/uL [facility] Blood Venous blood specimen / Unknown 04/18/2024 3:15 PM EST 04/18/2024 5:39 PM EST us Gildardo Huertas MD LAB BLOOD ORDERABLES Final Result [facility] [address] [place] [phone] * HIV-1/2 Antigen and Antibodies, Fourth Generation, with Reflexes (04/18/2024 3:15 PM EST) HIV AB/AG Nonreactive Nonreactive [facility] Comment:HIV-1 p24 Ag and/or HIV-1/HIV-2 Ab not detected.A test result that is nonreactive does not exclude thepossibility of exposure to or infection with HIV-1 and/orHIV-2. Nonreactive results in this assay for individualswith prior exposure to HIV-1 and/or HIV-2 may be due toantigen and antibody levels that are below the limit ofdetection of this assay.The [employer] HIV Ag/Ab Combo assay result andsupplemental assay results should be interpreted inconjunction with the patient's clinical presentation,history and other laboratory results. If the results areinconsistent with clinical evidence, additional testing issuggested to confirm the result. Blood Venous blood specimen / Unknown 04/18/2024 3:15 PM EST 04/18/2024 5:39 PM EST us Gildardo Huertas MD LAB BLOOD ORDERABLES Final Result Performing Organization Address [facility] de Phone Number [facility] [address] [place] [phone] * Partial Thromboplastin Time, Activated (APTT) (04/18/2024 3:15 PM EST) Partial Thromboplastin Time 34.9 26.0 - 36.8 SEC [facility] Comment:For information rega rding the monitoring of direct thrombininhibitors, please refer to Pharmacy. Blood Venous blood specimen / Unknown 04/18/2024 3:15 PM EST 04/18/2024 5:39 PM EST us Gildardo Huertas MD LAB BLOOD ORDERABLES Final Result Performing Organization Address [facility] de Phone Number [facility] [address] [place] [phone] * Prothrombin Time-INR (04/18/2024 3:15 PM EST) Prothrombin Time 11.2 10.9 - 12.4 SEC [facility] INTERNATIONAL NORM RATIO 1.0 0.9 - 1.1 [facility] Comment:INTERNATIONAL NORMAL IZED RATIO (INR) REFERENCE RANGES Reference RangeFor patients not on anticoagulant therapy: 0.9 - 1.1INR ranges for oral anticoagulanttherapy:For prevention and treatment of venous thrombosis and pulmonary embolism: 2.0 - 3.0For acute myocardial infarction with aspirin therapy: 2.0 - 3.0For acute myocardial infarction without aspirin therapy: 3.0 - 4.0For patients with mechanical prosthetic heart valves: 2.5 - 3.5 Blood Venous blood specimen / Unknown 04/18/2024 3:15 PM EST 04/18/2024 5:39 PM EST Gildardo Huertas MD LAB BLOOD ORDERABLES Final Result Performing Organization Address [facility] Co de Phone Number [facility] [address] [place] [phone] * Prealbumin (04/18/2024 3:15 PM EST) Prealbumin 22.0 20 - 40 mg/dL [facility] Blood Venous blood specimen / Unknown 04/18/2024 3:15 PM EST 04/18/2024 5:39 PM EST Gildardo Huertas MD LAB BLOOD ORDERABLES Final Result Performing Organization Address [facility] Phone Number [facility] [address] [place] [phone] * (ABNORMAL) Comprehensive Metabolic Panel (04/18/2024 3:15 PM EST) Sodium 137 135 - 145 mmol/L [facility] Potassium 4.0 3.3 - 5.1 mmol/L [facility] Chloride 110(H) 96 - 108 mmol/L [facility] Carbon Dioxide 22 22 - 29 mmol/L [facility] Anion Gap 9(L) 12 - 20 [facility] Urea Nitrogen (BUN) 16 9 - 16 mg/dL [facility] Creatinine, Serum 0.77 0.5 - 1.4 mg/dL [facility] Estimated Glomerular Filt Rate >60 [facility] Comment:Chronic Kidney Disea se: Estimated GFR < 60 mL/min/1.15b2Gvahpb Kidney Disease: Estimated GFR < 15 mL/min/1.73m2 Glucose 90 60 - 115 mg/dL [facility] Calcium 9.0 8.4 - 10.2 mg/dL [facility] Bilirubin, Total 0.7 0.0 - 1.0 mg/dL [facility] Aspartate Amino Transferase 31 5 - 37 U/L [facility] Alanine Aminotransferase 25 0 - 40 U/L [facility] Total Protein 7.3 6.5 - 8.0 g/dL [facility] Albumin Level 4.1 3.5 - 5.0 g/dL [facility] Alkaline Phosphatase 53 39 - 117 U/L [facility] Blood Venous blood specimen / Unknown 04/18/2024 3:15 PM EST 04/18/2024 5:39 PM EST us Gildardo Huertas MD LAB BLOOD ORDERABLES Final Result [facility] [address] [place] [phone] * POCT MITCHELL-14 Urine Drug Screen (03/10/2024 2:25 PM EST) THC Positive Oxycodone Screen, Urine Positive Urine Urine specimen obtained by clean catch procedure / Unknown 03/10/2024 2:25 PM EST Narrative Leelee Castaneda RN - 03/10/2024 2:25 PM EST Lot# [id number] Exp: 02-19-25 us Marii Mcmillan MD POINT OF CARE TEST ENTER/EDIT ORDERABLES Final Result * (ABNORMAL) LIPID PANEL, STANDARD (07/26/2021 10:58 [...] ?? Fortunato GIBSON et al. ISHAN. 2013;310(19): 6532-4165 ?? (http://RoomiePics.Lingoda/faq/TGF552) Non-HDL Cholesterol 124 <130 mg/dL (calc) [facility] Comment: For patients with diabetes plus 1 major ASCVD risk ?? factor, treating to a non-HDL-C goal of <100 mg/dL ?? (LDL-C of <70 mg/dL) is considered a therapeutic ?? option. Triglycerides 102 <150 mg/dL [facility] 07/26/2021 10:5 8 AM EDT us Marii Mcmillan MD LAB BLOOD ORDERABLES Final Re sult [facility] [address] from Last 3 Months or Most Recently Relevant to Health Maintenance Insurance [employer] C[employer] Care Teams Massage Therapy Instructor Relationship Specialty Start Date End Date Marii Mcmillan MD [address] [place] [address] PCP - General Family Medicine 07/11/21 Evelyne Green Senior Physical TherapistFleecer 12/09/23
--- OUTSIDE RECORDS SUMMARY | 2024-05-16 13:46 | XMS_ITS | Encounter Summary ---
Author Organization [employer] Address [address] [facility] 7t [place] [address] Care Team Providers Care Fence Laborer Name Role Phone Marii Mcmillan MD Primary Care Provider [phone] Encounter Details Date Type Department Care Team (Late st Contact Info) Description 04/29/2024 Orders Only [facility] [address] [place] [address] Star Dick MD [address] [place] [address] Polyarthralgia Social History Tobacco Use Types Packs/Day [...] Description 05/30/2024 2:00 PM EDT Telemedicine [facility] [address] [place] [address] Leelee Castaneda, RN [address] [place] [address] documented as of this encounter Visit Diagnoses Diagnosis Polyarthralgia Pain in joint, multiple sites documented in this encounter Additional Health Concerns Assessment Noted Time PHQ-9 Depression Total Score: 10 023 2:09 PM EST documented as of this encounter Care Teams Fence Laborer Relationship Specialty Start Date End Date Marii Mcmillan MD [address] [place] [address] PCP - General Family Medicine 07/11/21 Evelyne Green Passport Support AssociateLabor Economics Teacher 12/09/23 documented as of this encounter
--- OUTSIDE RECORDS SUMMARY | 2024-05-16 13:46 | XMS_ITS | Encounter Summary ---
Author Organization [employer] Address [address] [facility] 7t [place] [address] Care Team Providers Care Diesel Service Technician Name Role Phone Marii Mcmillan MD Primary Care Provider [phone] Reason for Visit * Reason Onset Date Comments Med Refill 04/27/2024 Encounter Details Date Type Department Care Team (Late st Contact Info) Description 04/27/2024 Refill [facility] [address] [place] [address] Marii Mcmillan MD [address] [place] [address] Polyarthralgia Social History Tobacco Use Types Packs/Day [...] * Telephone Encounter - Hermilo Lopez - 04/27/2024 11:59 AM EST TC from pt requesting medication refill. Medications needing refill: oxyCODONE-acetaminophen (Percocet) 5-325 MG tablet To be sent to: [facility]/pharmacy #[id number] MARY CARIAS - [address] [facility] documented in this encounter Plan of Treatment Upcoming Encounters Date Type Department Care Team (Late st Contact Info) Description 05/30/2024 2:00 PM EDT Telemedicine [facility] [address] [place] [address] Leelee Castaneda, RN [address] [place] [address] documented as of this encounter Visit Diagnoses Diagnosis Polyarthralgia Pain in joint, multiple sites documented in this encounter Additional Health Concerns Assessment Noted Time PHQ-9 Depression Total Score: 10 023 2:09 PM EST documented as of this encounter Care Teams Diesel Service Technician Relationship Specialty Start Date End Date Marii Mcmillan MD [address] [place] [address] PCP - General Family Medicine 07/11/21 Evelyne Green Environmental Services TechCommand And Control 12/09/23 documented as of this encounter
--- OUTSIDE RECORDS SUMMARY | 2024-05-16 13:46 | XMS_ITS | Encounter Summary ---
Author Organization [employer] Address [address] [facility] 7t [place] [address] Care Team Providers Care Relay Telegrapher Name Role Phone Marii Mcmillan MD Primary Care Provider [phone] Reason for Visit * Reason Onset Date Comments CHART PREP 01/26/2024 Encounter Details Date Type Department Care Team ([facility] Contact Info) Description 01/26/2024 Telephone [facility] [address] [place] [address] Marii Mcmillan MD [address] [place] [address] CHART PREP Social History Tobacco Use Types [...] Info) Description 05/30/2024 2:00 PM EDT Telemedicine [facility] [address] [place] [address] Leelee Castaneda, RN [address] [place] [address] documented as of this encounter Visit Diagnoses Diagnosis Polyarthralgia Pain in joint, multiple sites documented in this encounter Additional Health Concerns Assessment Noted Time PHQ-9 Depression Total Score: 10 023 2:09 PM EST documented as of this encounter Care Teams Relay Telegrapher Relationship Specialty Start Date End Date Marii Mcmillan MD [address] [place] [address] PCP - General Family Medicine 07/11/21 Evelyne Green Township ClerkWhip Operator 12/09/23 documented as of this encounter
--- OUTSIDE RECORDS SUMMARY | 2024-05-16 13:46 | XMS_ITS | Encounter Summary ---
Author Organization [employer] Address [address] [facility] [address] [place] [address] Care Team Providers Care New Client Banking Services Clerk Name Role Phone Marii Mcmillan MD Primary Care Provider [phone] Reason for Visit * Reason Onset Date Comments Appointment Request 01/11/2024 Encounter Details Date Type Department Care Team ([facility] Contact Info) Description 01/11/2024 Telephone [facility] [address] [place] [address] Marii Mcmillan MD [address] [place] [address] Appointment Request Social History Tobacco Use Types [...] from pt calling in regards to tomorrows DIRECTOR OF OCCUPATIONAL HEALTH visit stating he is feeling sick and is wondering ifhe can change appt to a telephone visit. Please contact pt at [phone]. documented in this encounter Plan of Treatment Upcoming Encounters Date Type Department Care Team (Late st Contact Info) Description 05/30/2024 2:00 PM EDT Telemedicine [facility] [address] [place] [address] Leelee Castaneda, RN [address] [place] [address] documented as of this encounter Visit Diagnoses Not on filedocumented in this encounter Additional Health Concerns Assessment Noted Time PHQ-9 Depression Total Score: 10 023 2:09 PM EST documented as of this encounter Care Teams New Client Banking Services Clerk Relationship Specialty Start Date End Date Marii Mcmillan MD [address] [place] [address] PCP - General Family Medicine 07/11/21 Evelyne Green Quality Control Lab TechnicianConcrete Mixer 12/09/23 documented as of this encounter
--- OUTSIDE RECORDS SUMMARY | 2024-05-16 13:46 | XMS_ITS | Encounter Summary ---
Author Organization [employer] Address [address] [facility] 7t [place] [address] Care Team Providers Care Mainspring Reverse Winder Name Role Phone Marii Mcmillan MD Primary Care Provider [phone] Reason for Visit * Reason Comments Med Change Request Encounter Details Date Type Department Care Team (Late Contact Info) Description 05/27/2022 Refill [facility] [address] [place] [address] Marii Mcmillan MD [address] [place] [address] Takes dietary supplements Social History Tobacco Use [...] Info) Description 05/30/2024 2:00 PM EDT Telemedicine [facility] [address] [place] [address] Leelee Castaneda, RN [address] [place] [address] documented as of this encounter Visit Diagnoses Diagnosis Takes dietary supplements documented in this encounter Additional Health Concerns Assessment Noted Time PHQ-9 Depression Total Score: 10 023 2:09 PM EST documented as of this encounter Care Teams Mainspring Reverse Winder Relationship Specialty Start Date End Date Marii Mcmillan MD [address] [place] [address] PCP - General Family Medicine 07/11/21 Evelyne Green Manager Food BeverageTech Ed Teacher 12/09/23 documented as of this encounter
--- OUTSIDE RECORDS SUMMARY | 2024-05-16 13:46 | XMS_ITS | Encounter Summary ---
Author Organization [employer] Address [address] [facility] 7t [place] [address] Care Team Providers Care Electrical Manufacturing Technician Name Role Phone Marii Mcmillan MD Primary Care Provider [phone] Reason for Visit * Reason Comments Med Change Request Encounter Details Date Type Department Care Team ([facility] Contact Info) Description 05/29/2022 Refill [facility]S [address] [place] [address] Marii Mcmillan MD [address] [place] [address] Takes dietary supplements Social History Tobacco Use [...] Info) Description 05/30/2024 2:00 PM EDT Telemedicine [facility] [address] [place] [address] Leelee Castaneda, RN [address] [place] [address] documented as of this encounter Visit Diagnoses Diagnosis Takes dietary supplements documented in this encounter Additional Health Concerns Assessment Noted Time PHQ-9 Depression Total Score: 10 023 2:09 PM EST documented as of this encounter Care Teams Electrical Manufacturing Technician Relationship Specialty Start Date End Date Marii Mcmillan MD [address] [place] [address] PCP - General Family Medicine 07/11/21 Evelyne Green Estimator BindingAssociate Account Executive 12/09/23 documented as of this encounter
--- OUTSIDE RECORDS SUMMARY | 2024-05-16 13:46 | XMS_ITS | Encounter Summary ---
Author Organization [employer] Address 75 [facility] 7t [place] [address] Care Team Providers Care Food And Beverage Service Manager Name Role Phone Marii Mcmillan MD Primary Care Provider [phone] Reason for Visit * Reason Onset Date Comments Med Refill 01/28/2024 Encounter Details Date Type Department Care Team ([facility] st Contact Info) Description 01/28/[address] [facility] [address] [place] [address] Marii Mcmillan MD [address] [place] [address] Med Refill Social History Tobacco Use Types [...] 5-325 MG tablet To be sent to: [facility]/pharmacy #[id number] MARY CARIAS - [address] [place] [address] documented in this encounter Plan of Treatment Upcoming Encounters Date Type Department Care Team (Late st Contact Info) Description 05/30/2024 2:[address] [facility] MED & PEDS 505 [place] [address] Leelee Castaneda, RN 505 [place] [address] documented as of this encounter Visit Diagnoses Not on filedocumented in this encounter Additional Health Concerns Assessment Noted Time PHQ-9 Depression Total Score: 10 023 2:09 PM EST documented as of this encounter Care Teams Food And Beverage Service Manager Relationship Specialty Start Date End Date Marii Mcmillan MD [address] [place] [address] PCP - General Family Medicine 07/11/21 Evelyne Green Appeals AssistantElectrical Logger 12/09/23 documented as of this encounter
--- OUTSIDE RECORDS SUMMARY | 2024-05-16 13:46 | XMS_ITS | Encounter Summary ---
Author Organization [employer] Address 75 [facility] 7t [place] [address] Care Team Providers Care Director Global Strategic Publisher Sales Name Role Phone Marii Mcmillan MD Primary Care Provider [phone] Encounter Details Date Type Department Care Team ([facility] Contact Info) Description 04/21/2024 Telephone [facility] CHC MED & PEDS [address] [place] [address] Gildardo Huertas MD 505 [place] [address] Social History Tobacco Use Types Packs/Day Years [...] encounter Miscellaneous Notes * Telephone Encounter - Gildardo Huertas MD - 04/21/2024 9:15 AM EST Patient was called and made aware of the results of his blood work. He needs his preop evaluation with cardiology prior to proceeding to his surgery. All questions answered. documented in this encounter Plan of Treatment Upcoming Encounters Date Type Department Care Team (Late st Contact Info) Description 05/30/2024 2:00 PM EDT Telemedicine [facility] MED & PEDS [address] [place] [address] Leelee Castaneda, REGINA 505 [place] [address] documented as of this encounter Visit Diagnoses Not on filedocumented in this encounter Additional Health Concerns Assessment Noted Time PHQ-9 Depression Total Score: 10 023 2:09 PM EST documented as of this encounter Care Teams Director Global Strategic Publisher Sales Relationship Specialty Start Date End Date Marii Mcmillan MD 230 [place] [address] PCP - General Family Medicine 07/11/21 Evelyne Green Third Shift LieutenantTobacco Sprayer 12/09/23 documented as of this encounter
--- OUTSIDE RECORDS SUMMARY | 2024-05-16 13:46 | XMS_ITS | Encounter Summary ---
Author Organization [employer] Address 75 [facility] 7t [place] [address] Care Team Providers Care Energy Sales Broker Name Role Phone Marii Mcmillan MD Primary Care Provider [phone] Reason for Visit * Reason Onset Date Comments Med Change Request 11/04/2023 Encounter Details Date Type Department Care Team ([facility] Contact Info) Description 11/04/[address] [facility] MED[facility]INE 230 [place] [address] Marii Mcmillan MD 505 [place] [address] Med Change Request Social History Tobacco Use [...] Description 05/30/2024 2:[address] [facility] MED & PEDS 505 [place] [address] Leelee Castaneda, RN 505 [place] [address] documented as of this encounter Visit Diagnoses Not on filedocumented in this encounter Additional Health Concerns Assessment Noted Time PHQ-9 Depression Total Score: 10 023 2:09 PM EST documented as of this encounter Care Teams Energy Sales Broker Relationship Specialty Start Date End Date Marii Mcmillan MD [address] [place] [address] PCP - General Family Medicine 07/11/21 Evelyne Green Resident Care ManagerBoiler Shop Mechanic 12/09/23 documented as of this encounter
--- OUTSIDE RECORDS SUMMARY | 2024-05-16 13:46 | XMS_ITS | Encounter Summary ---
Author Organization [employer] Address [address] [facility] [address] 7t [place] [address] Care Team Providers Care Squilgeer Name Role Phone Marii Mcmillan MD Primary Care Provider Encounter Details Date Type Department Care Team (Late st Contact Info) Description 06/22/2023 Telephone [facility] MEDICINE [address] [place] [address] Marii Mcmillan MD [address] [place] [address] Social History Tobacco Use Types Packs/Day Years [...] 05/30/2024 2:00 PM EDT Telemedicine [facility] MED & PEDS 505 [place] [address] Leelee Castaneda, RN 505 [place] [address] documented as of this encounter Visit Diagnoses Not on filedocumented in this encounter Additional Health Concerns Assessment Noted Time PHQ-9 Depression Total Score: 10 023 2:09 PM EST documented as of this encounter Care Teams Squilgeer Relationship Specialty Start Date End Date Marii Mcmillan MD [address] [place] [address] PCP - General Family Medicine 07/11/21 Evelyne Green Munitions Handler SupervisorAuto Painter 12/09/23 documented as of this encounter
--- OUTSIDE RECORDS SUMMARY | 2024-05-16 13:46 | XMS_ITS | Encounter Summary ---
Author Organization [employer] Address [address] [place] [address] 7t [place] [address] Care Team Providers Care Rope Rider Name Role Phone Marii Mcmillan MD Primary Care Provider [phone] Reason for Referral * Consultation (Routine) - Authorized Specialty Diagnoses / Procedures Referred By Contac t Referred To Contact Cardiology Diagnoses Pre-op evaluation LBBB (left bundle branch block) Ebony Huertas MD 505 [place] [address] Phone: tel: fax: Manjit Anton MD [address] [address] Phone: tel: fax: Referral ID Status Reason Start Date Expiration Date Visits Requested Visits Authorized [id number] Authorized Specialty Services Required 04/18/2024 04/18/2025 1 1 Reason for Visit * Reason Comments Preop evaluation Encounter Details Date Type Department Care Team (Late st Contact Info) Description 04/18/2024 2:00 PM EST Office Visit [facility] CHC MED & PEDS [address] [place], [place] [phone] Ebony Huertas MD 505 [place], [place] [phone] Pre-op evaluation (Primary Dx); LBBB (left bundle [...] gait problem. Skin: Negative for rash. Objective BP 124/86 (BP Location: Right arm, Patient Position: Sitting, BP Cuff Size: Adult) Pulse 70 Temp 97.9 ??F (36.6 ??C) (Oral) Resp 20 Ht 5' 6 (1.676 m) Wt 140 lb 9.6 oz (63.8 kg) SpO2 99% BMI 22.69 kg/m?? Physical Exam Constitutional: General: He is not [...] with the current available information. STOP-BANG questionnaire: 4 Patient is an intermediate risk of PACO. [...] branch block) - Referral to Cardiology; Future 04/21/2024 Labs reviewed: MELD score: 6 Mr Manuel Grimm can proceed with his surgery with optimal medical management. He needs his Cardiology pre op evaluation prior to proceeding to the surgery. He is to Hold Hydrochlorothiazide the day of the surgery. To take rest of home medication the day of the surgery DVT prophylaxis. documented in this encounter Miscellaneous Notes * Addendum Note - Ebony Huertas MD - 04/18/2024 2:00 PM ESTAddended by: EBONY HUERTAS on: 04/18/2024 04:12 PM Modules accepted: Orders documented in this encounter Plan of Treatment Upcoming Encounters Date Type Department Care Team (Late st Contact Info) Description 05/30/2024 2:00 PM EDT Telemedicine [facility] MED & PEDS [address] [place] [address] Leelee Castaneda, REGINA 505 [place] [address] Scheduled Referrals Name Type Priority Associated Diagnoses Order Schedule Referral to Cardiology Outpatient Referral Routine Pre-op evaluation LBBB (left bundle branch block) Expected: 04/18/2024 (Approximate), Expires: 04/18/2025 documented as of this encounter Procedures Procedure Name Priority Date/Time Associated Diagnosis Comments ECG 12-LEAD Routine 04/18/2024 4:12 PM EST Pre-op evaluation LBBB (left bundle branch block) TSH W/REFLEX TO FT4 Routine 04/18/2024 3 :15 PM EST Pre-op evaluation CBC WITH AUTO DIFFERENTIAL Routine 04/18/2024 3:15 PM EST Pre-op evaluation HIV 1/2 ANTIGEN/ANTIBODY, FOURTH GENERATION W/RFL Routine 04/18/2024 3:15 PM EST Pre-op evaluation APTT Routine 04/18/2024 3:15 PM EST Pre-op evaluation PROTHROMBIN TIME-INR Routine 04/18/2024 3:15 PM EST Pre-op evaluation PREALBUMIN Routine 04/18/2024 3:15 PM EST Pre-op evaluation COMPREHENSIVE METABOLIC PANEL Routine 04/18/2024 3:15 PM EST Pre-op evaluation documented in this encounter Results * ECG 12 lead (04/18/2024 4:12 PM EST) Narrative Ebony Huertas MD - 04/18/2024 4:12 PM EST HR: 65 bpm. [place] 18. ??LBBB. ??High lateral and lateral repolarization disturbance. ??Normal sinus rhythm us Ebony Huertas MD ECG ORDERABLES Final Resul t * Partial Thromboplastin Time, Activated (APTT) (04/18/2024 3:15 PM EST) Partial Thromboplastin Time 34.9 26.0 - 36.8 SEC [facility] Comment:For information rega rding the monitoring of direct thrombininhibitors, please refer to Pharmacy. Blood Venous blood specimen / Unknown 04/18/2024 3:15 PM EST 04/18/2024 5:39 PM EST us Ebony Huertas MD LAB BLOOD ORDERABLES Final Result [facility] [address] [place] [address] [phone] * TSH W/Reflex to FT4 (04/18/2024 3:15 PM EST) TSH reflex Free T4 2.40 0.32 - 4.0 uIU/mL [facility] Blood Venous blood specimen / Unknown 04/18/2024 3:15 PM EST 04/18/2024 5:39 PM EST us Ebony Huertas MD LAB BLOOD ORDERABLES Final Result Performing Organization Address City/[facility]/ZIP Co de Phone Number [facility] [address] [place] [phone] * HIV-1/2 Antigen and Antibodies, Fourth Generation, with Reflexes (04/18/2024 3:15 PM EST) Pathologist [facility] HIV AB/AG Nonreactive Nonreactive [facility] Comment:HIV-1 p24 Ag and/or HIV-1/HIV-2 Ab not detected.A test result that is nonreactive does not exclude thepossibility of exposure to or infection with HIV-1 and/orHIV-2. Nonreactive results in this assay for individualswith prior exposure to HIV-1 and/or HIV-2 may be due toantigen and antibody levels that are below the limit ofdetection of this assay.[employer] HIV Ag/Ab Combo assay result andsupplemental assay results should be interpreted inconjunction with the patient's clinical presentation,history and other laboratory results. If the results areinconsistent with clinical evidence, additional testing issuggested to confirm the result. Blood Venous blood specimen / Unknown 04/18/2024 3:15 PM EST 04/18/2024 5:39 PM EST us Ebony Huertas MD LAB BLOOD ORDERABLES Final Result Performing Organization Address City/[facility]/ZIP Co de Phone Number [facility] [address] [place] [phone] * Prealbumin (04/18/2024 3:15 PM EST) Pathologist [facility] Prealbumin 22.0 20 - 40 mg/dL [facility] Blood Venous blood specimen / Unknown 04/18/2024 3:15 PM EST 04/18/2024 5:39 PM EST Ebony Huertas MD LAB BLOOD ORDERABLES Final Result Performing Organization Address City/[facility]/ZIP Co de Phone Number [facility] [address] [place] [address] [phone] * Prothrombin Time-INR (04/18/2024 3:15 PM EST) [facility] Prothrombin Time 11.2 10.9 - 12.4 SEC [facility] INTERNATIONAL NORM RATIO 1.0 0.9 - 1.1 [facility] Comment:INTERNATIONAL NORMAL IZED RATIO (INR) REFERENCE [...] PM EST 04/18/2024 5:39 PM EST us Ebony Huertas MD LAB BLOOD ORDERABLES Final Result Performing Organization Address City/[facility]/ZIP Co de Phone Number [facility] [address] [place] [address] [phone] * (ABNORMAL) Comprehensive Metabolic Panel (04/18/2024 3:15 PM EST) Pathologist [facility] Sodium 137 135 - 145 mmol/L [facility] Potassium 4.0 3.3 - 5.1 mmol/L [facility] Chloride 110(H) 96 - 108 mmol/L [facility] Carbon Dioxide 22 22 - 29 mmol/L [facility] Anion Gap 9(L) 12 - 20 [facility] Urea Nitrogen (BUN) 16 9 - 16 mg/dL [facility] Creatinine, Serum 0.77 0.5 - 1.4 mg/dL [facility] Estimated Glomerular Filt Rate >60 [facility] Comment:Chronic Kidney Disea se: Estimated GFR < 60 mL/min/1.68m3Riwhvf Kidney Disease: Estimated GFR < 15 mL/min/1.73m2 Glucose 90 60 - 115 mg/dL [facility] Calcium 9.0 8.4 - 10.2 mg/dL [facility] Bilirubin, Total 0.7 0.0 - 1.0 mg/dL [facility] Aspartate Amino Transferase 31 5 - 37 U/L [facility] Alanine Aminotransferase 25 0 - 40 U/L [facility] Total Protein 7.3 6.5 - 8.0 g/dL [facility] Albumin Level 4.1 3.5 - 5.0 g/dL [facility] Alkaline Phosphatase 53 39 - 117 U/L [facility] Blood Venous blood specimen / Unknown 04/18/2024 3:15 PM EST 04/18/2024 5:39 PM EST us Ebony Huertas MD LAB BLOOD ORDERABLES Final Result [facility] [address] [place] [phone] * (ABNORMAL) CBC auto differential (04/18/2024 3:15 PM EST) White Blood Count 5.6 4.8 - 10.8 X10*3/uL [facility] Red Blood Count 4.63 4.60 - 5.80 X10*6/uL [facility] Hemoglobin 14.2 14.0 - 18.0 g/dl [facility] Hematocrit 39.4(L) 42.0 - 52.0 % [facility] Mean Corpuscular Volume 85.1 80.0 - 98.0 fL [facility] Mean Corpuscular Hemoglobin 30.7 27.0 - 33.0 pg [facility] Mean Corpuscular HGB Conc 36.0 31.0 - 36.0 g/dl [facility] Red Cell Distribution Width 12.8 11.0 - 16.0 % [facility] Platelet Count 118(L) 160 - 400 X10*3/uL [facility] Mean Platelet Volume 10.4 9.4 - 12.4 fL [facility] Neutrophils Percent Auto 49.8 45 - 73 % [facility] Imm Gran Pct Auto 0.2 0.0 - 0.4 % [facility] Lymphocytes Percent Auto 28.9 20 - 40 % [facility] Monocytes Percent Auto 13.6(H) 2 - 11 % [facility] Eosinophils Percent Auto 7.0(H) 0 - 4 % [facility] Basophils Percent Auto 0.5 0 - 2 % [facility] NRBC Pct Auto 0.0 0.0 - 0.2 /100WBC [facility] Neutrophils Absolute Auto 2.8 2.0 - 8.3 x10*3/uL [facility] Imm Gran Abs Auto 0.01 0.00 - 0.03 X10*3/uL [facility] Lymphocytes Absolute Auto 1.6 1.2 - 4.9 X10*3/uL [facility] Monocytes Absolute Auto 0.8 0.1 - 1.2 X10*3/uL [facility] Eosinophils Absolute Auto 0.4 0.0 - 0.4 X10*3/uL [facility] Basophils Absolute Auto 0.0 0.0 - 0.2 X10*3/uL [facility] NRBC Abs Auto 0.000 0.0 - 0.012 X10*3/uL [facility] Blood Venous blood specimen / Unknown 04/18/2024 3:15 PM EST 04/18/2024 5:39 PM EST us Ebony Huertas MD LAB BLOOD ORDERABLES Final Result [facility] [address] [place] [phone] [phone] documented in this encounter Visit Diagnoses Diagnosis Pre-op evaluation- Primary LBBB (left bundle branch block) Other left bundle branch block documented in this encounter Additional Health Concerns Assessment Noted Time PHQ-9 Depression Total Score: 10 023 2:09 PM EST documented as of this encounter Care Teams Rope Rider Relationship Specialty Start Date End Date Marii Mcmillan MD [address] [place] [address] PCP - General Family Medicine 07/11/21 Evelyne Green Computer Help Desk RepresentativeEnergy Projects Lead 12/09/23 documented as of this encounter
== END 2024-05-16 12:43 | disposition home or self-care (01) ==
LOC: HO.HGI 11:33
PROVIDERS: PCP Family Medicine; Visit Provider Internal Medicine Gastroenterology
DX: K74.60 Unspecified cirrhosis of liver (principal)
CPT/HCPCS: 99213

== ENCOUNTER 2024-05-18 07:16 | Outpatient (REF) | payer MEDICAID, SELFPAY ==
--- OUTSIDE RECORDS SUMMARY | 2024-05-18 07:18 | XMS_ITS | Encounter Summary ---
Author Organization [employer] Address 75 [facility] 7t [place] [address] Care Team Providers Care Special Education Para Professional Name Role Phone Marii Mcmillan MD Primary Care Provider [phone] Encounter Details Date Type Department Care Team ([facility] st Contact Info) Description 05/09/2024 Orders Only [...] [facility] [address] [place] [address] Leelee Castaneda, RN [address] [place] [address] documented as of this encounter Procedures Procedure Name Priority Date/Time Associated Diagnosis Comments MRSA NASAL SCREEN Routine 05/09/2024 1:0 0 PM EST documented in this encounter Results * MRSA Nasal Screen (05/09/2024 1:00 PM EST) MRSA Nasal PCR NEGATIVE Negative [facility] SA Nasal PCR NEGATIVE Negative [facility] MRSA Interpretation SEE NOTE [facility] Comment:MRSA target DNA not detected; SA target DNA not detected.A MRSA NEGATIVE, SA NEGATIVE test result does not precludeMRSA or SA nasal colonization. 05/09/2024 1:00 PM EST 05/09/2024 1:18 PM EST us Generic External Data Provider LAB MICROBIOLOGY - GENERAL ORDERABLES Final Result [facility] [address] [place] [address] [phone] documented in this encounter Visit Diagnoses Not on filedocumented in this encounter Additional Health Concerns Assessment Noted Time PHQ-9 Depression Total Score: 10 023 2:09 PM EST documented as of this encounter Care Teams Special Education Para Professional Relationship Specialty Start Date End Date Marii Mcmillan MD [address] [place] [address] PCP - General Family Medicine 07/11/21 Evelyne Green Mill HelperLinen Tech 12/09/23 documented as of this encounter
--- OUTSIDE RECORDS SUMMARY | 2024-05-18 07:18 | XMS_ITS | Encounter Summary ---
Author Organization [employer] Address [address] [facility] [address] [place] [address] Care Team Providers Care Exterior Work Helper Name Role Phone Marii Mcmillan MD Primary Care Provider [phone] Reason for Visit * Reason Onset Date Comments PT1 05/15/2023 Encounter Details Date Type Department Care Team ([facility] st Contact Info) Description 05/15/[address] [facility] MED[facility]INE [address] [place] [address] Marii Mcmillan MD [address] [place] [address] PT1 Social History Tobacco Use Types Packs/Day [...] in the mail. * Telephone Encounter - Jdu Resendiz - 05/15/2023 9:04 AM EST Tc from Evelyne CHAWLA PT1 needed Date: 07/02 Time: 12:30 Visits: (amount of visits) ( x monthly, weekly, daily) Address: [address] [place] [address] Facility[facility] Wheel Chair: NO Canvass Manager Needed: NO Address and phone confirmed by Evelyne CHAWLA documented in this encounter Plan of Treatment Upcoming Encounters Date Type Department Care Team (Late st Contact Info) Description 05/30/2024 2:00 PM EDT Telemedicine [facility] MED & PEDS [address] [place] [address] Leelee Castaneda, REGINA [address] [place] [address] documented as of this encounter Visit Diagnoses Not on filedocumented in this encounter Additional Health Concerns Assessment Noted Time PHQ-9 Depression Total Score: 10 023 2:09 PM EST documented as of this encounter Care Teams Exterior Work Helper Relationship Specialty Start Date End Date Marii Mcmillan MD [address] [place] [address] PCP - General Family Medicine 07/11/21 Evelyne Green Mortgage BankerManager Meeting 12/09/23 documented as of this encounter
--- OUTSIDE RECORDS SUMMARY | 2024-05-18 07:18 | XMS_ITS | Encounter Summary ---
Author Organization [employer] Address 75 [facility] 7t [place] [address] Care Team Providers Care Boilers Inspector Name Role Phone Marii Mcmillan MD Primary Care Provider [phone] Reason for Visit * Reason Onset Date Comments Referral 05/20/2022 Encounter Details Date Type Department Care Team ([facility] st Contact Info) Description 05/20/2022 Telephone [facility] CHC MED & PEDS [address] [place] [address] Marii Mcmillan MD [address] [place] [address] Referral Social History Tobacco Use Types Packs/Day [...] made on 02/04/2022. Please contact pt at [phone] documented in this encounter Plan of Treatment Upcoming Encounters Date Type Department Care Team ([facility] st Contact Info) Description 05/30/2024 2:00 PM EDT Telemedicine [facility] MED & PEDS [address] [place] [address] Leelee Castaneda, RN [address] [place] [address] documented as of this encounter Visit Diagnoses Not on filedocumented in this encounter Care Teams Boilers Inspector Relationship Specialty Start Date End Date Marii Mcmillan MD [address] [place] [address] PCP - General Family Medicine 07/11/21 Evelyne Green Workforce Development Program DirectorPot Puller 12/09/23 documented as of this encounter
--- OUTSIDE RECORDS SUMMARY | 2024-05-18 07:18 | XMS_ITS | Encounter Summary ---
Author Organization [employer] Address 75 [facility] 7t [place] [address] Care Team Providers Care Link Cutter Name Role Phone Marii Mcmillan MD Primary Care Provider [phone] Reason for Visit * Reason Onset Date Comments Appointment Request 04/22/2023 Encounter Details Date Type Department Care Team ([facility] Contact Info) Description 04/22/2023 Telephone [facility] MED & PEDS [address] [place] [address] Marii Mcmillan MD [address] [place] [address] Appointment Request Social History Tobacco Use Types [...] was scheduled for SD[facility] apt today in [facility] but, due to car not [...] fever. Pt is offered to come to [facility] today or tomorrow morning but, Pt would rather come to [facility]. Pt is advised to call [...] (Car wont Start) Please contact pt @ [phone] documented in this encounter Plan of Treatment Upcoming Encounters Date Type Department Care Team ([facility] st Contact Info) Description 05/30/2024 2:00 PM EDT Telemedicine [facility] MED & PEDS [address] [place] [address] Leelee Castaneda, RN [address] [place] [address] documented as of this encounter Visit Diagnoses Not on filedocumented in this encounter Additional Health Concerns Assessment Noted Time PHQ-9 Depression Total Score: 10 023 2:09 PM EST documented as of this encounter Care Teams Link Cutter Relationship Specialty Start Date End Date Marii Mcmillan MD [address] [place] [address] PCP - General Family Medicine 07/11/21 Evelyne Green Financial EconomistProduct Safety Technical Assistant 12/09/23 documented as of this encounter
--- OUTSIDE RECORDS SUMMARY | 2024-05-18 07:18 | XMS_ITS | Encounter Summary ---
Author Organization [employer] Address [address] [facility] 7t [place] [address] Care Team Providers Care Laboratory Phlebotomist Name Role Phone Marii Mcmillan MD Primary Care Provider [phone] Reason for Visit * Reason Onset Date Comments Referral 03/12/2023 Encounter Details Date Type Department Care Team ([facility] Contact Info) Description 03/12/2023 Telephone [facility] MED & PEDS [address] [place] [address] Marii Mcmillan MD 505 [place] [address] Referral Social History Tobacco Use Types Packs/Day [...] 03/12/2023 4:18 PM EST Referral re-faxed to [facility] [place] [place] gastro. * Telephone Encounter - Brooke Corral - 03/12/2023 1:49 PM EST Tc from [facility] office of [facility] [place] gastroenterology has not received referral. documented in this encounter Plan of Treatment Upcoming Encounters Date Type Department Care Team (Late st Contact Info) Description 05/30/2024 2:00 PM EDT Telemedicine [facility] MED [facility] [address] [place] [address] Leelee Castaneda, RN 505 [place] [address] documented as of this encounter Visit Diagnoses Not on filedocumented in this encounter Additional Health Concerns Assessment Noted Time PHQ-9 Depression Total Score: 10 023 2:09 PM EST documented as of this encounter Care Teams Laboratory Phlebotomist Relationship Specialty Start Date End Date Marii Mcmillan MD [address] [place] [address] PCP - General Family Medicine 07/11/21 Evelyne Green Bumper Machine OperatorCar Dumper 12/09/23 documented as of this encounter
--- OUTSIDE RECORDS SUMMARY | 2024-05-18 07:18 | XMS_ITS | Encounter Summary ---
Author Organization [employer] Address [address] [place] [address] 7t [place] [address] Care Team Providers Care Electrician Supervisor Airplane Name Role Phone Marii Mcmillan MD Primary Care Provider [phone] Reason for Visit * Reason Comments Med Refill Encounter Details Date Type Department Care Team (Late Contact Info) Description 04/08/2022 Refill [facility] & PEDS [address] [place] [address] Marii Mcmillan MD 505 [place] [address] Vitamin deficiency, unspecified Social History Tobacco Use [...] Description 05/30/2024 2:00 PM EDT Telemedicine [facility] MED & [facility]EDS [address] [place] [address] Leelee Castaneda RN 505 [place] [address] documented as of this encounter Visit Diagnoses Diagnosis Vitamin deficiency, unspecified documented in this encounter Care Teams Electrician Supervisor Airplane Relationship Specialty Start Date End Date Marii Mcmillan MD [address] [place] [address] PCP - General Family Medicine 07/11/21 Evelyne Green Bicycle MessengerMill Controller 12/09/23 documented as of this encounter
--- OUTSIDE RECORDS SUMMARY | 2024-05-18 07:19 | XMS_ITS | Encounter Summary ---
Author Organization [employer] Address [address] [place] [address] 7t [place] [address] Care Team Providers Care And Drying Supervisor Cooking Casing Name Role Phone Marii Mcmillan MD Primary Care Provider [phone] Reason for Referral * Consultation (Routine) - Authorized Specialty Diagnoses / Procedures Referred By Contac t Referred To Contact Cardiology Diagnoses Pre-op evaluation LBBB (left bundle branch block) Ebony Huertas MD [address] [place] [address] Phone: tel: fax: Manjit Anton MD [address] [address] Phone: tel: fax: Referral ID Status Reason Start Date Expiration Date Visits Requested Visits Authorized [id number] Authorized Specialty Services Required 04/18/2024 04/18/2025 1 1 Reason for Visit * Reason Comments Preop evaluation Encounter Details Date Type Department Care Team (Late st Contact Info) Description 04/18/2024 2:00 PM EST Office Visit [facility] MED & PEDS [address] [place], [place] [phone] Ebony Huertas MD [address] [place], [place] [phone] Pre-op evaluation (Primary Dx); LBBB (left bundle [...] Info) Description 05/30/2024 2:00 PM EDT Telemedicine [facility] MED & PEDS [address] [place] [address] Leelee Castaneda, REGINA 505 [place] [address] Scheduled Referrals Name Type Priority Associated Diagnoses [...] 04/18/2024 4:12 PM EST HR: 65 bpm. [place] 18. ??LBBB. ??High lateral and lateral repolarization disturbance. ??Normal sinus rhythm us Ebony Huertas MD ECG ORDERABLES Final Resul t * Partial Thromboplastin Time, Activated (APTT) (04/18/2024 3:15 PM EST) Partial Thromboplastin Time 34.9 26.0 - 36.8 SEC [facility] Comment:For information rega rding the monitoring of direct thrombininhibitors, please refer to Pharmacy. Blood Venous blood specimen / Unknown 04/18/2024 3:15 PM EST 04/18/2024 5:39 PM EST us Ebony Huertas MD LAB BLOOD ORDERABLES Final Result [facility] [address] [place] [address] [phone] * TSH W/Reflex to FT4 (04/18/2024 3:15 PM EST) TSH reflex Free T4 2.40 0.32 - 4.0 uIU/mL [facility] Blood Venous blood specimen / Unknown 04/18/2024 3:15 PM EST 04/18/2024 5:39 PM EST us Ebony Huertas MD LAB BLOOD ORDERABLES Final Result Performing Organization Address City/[facility]/ZIP Co de Phone Number [facility] [address] [place] [phone] * HIV-1/2 Antigen and Antibodies, Fourth Generation, with Reflexes (04/18/2024 3:15 PM EST) Pathologist [facility] HIV AB/AG Nonreactive Nonreactive [facility] Comment:HIV-1 p24 Ag and/or HIV-1/HIV-2 Ab not detected.A test result that is nonreactive does not exclude thepossibility of exposure to or infection with HIV-1 and/orHIV-2. Nonreactive results in this assay for individualswith prior exposure to HIV-1 and/or HIV-2 may be due toantigen and antibody levels that are below the limit ofdetection of this assay.The [employer] HIV Ag/Ab Combo assay result andsupplemental assay results should be interpreted inconjunction with the patient's clinical presentation,history and other laboratory results. If the results areinconsistent with clinical evidence, additional testing issuggested to confirm the result. Blood Venous blood specimen / Unknown 04/18/2024 3:15 PM EST 04/18/2024 5:39 PM EST us Ebony Huertas MD LAB BLOOD ORDERABLES Final Result Performing Organization Address City/[facility]/ZIP Co de Phone Number [facility] [address] [place] [phone] * Prealbumin (04/18/2024 3:15 PM EST) Pathologist [facility] Prealbumin 22.0 20 - 40 mg/dL [facility] Blood Venous blood specimen / Unknown 04/18/2024 3:15 PM EST 04/18/2024 5:39 PM EST Ebony Huertas MD LAB BLOOD ORDERABLES Final Result Performing Organization Address City/[facility]/ZIP Co de Phone Number [facility] [address] [place] [address] [phone] * Prothrombin Time-INR (04/18/2024 3:15 PM EST) [facility] Prothrombin Time 11.2 10.9 - 12.4 SEC [facility] INTERNATIONAL NORM RATIO 1.0 0.9 - 1.1 [facility] Comment:INTERNATIONAL NORMAL IZED RATIO (INR) REFERENCE [...] BLOOD ORDERABLES Final Result Performing Organization Address City/[facility]/ZIP Co de Phone Number [facility] [address] [place] [address] [phone] * (ABNORMAL) Comprehensive Metabolic Panel (04/18/2024 3:15 PM EST) Pathologist [facility] Sodium 137 135 - 145 mmol/L [facility] Potassium 4.0 3.3 - 5.1 mmol/L [facility] Chloride 110(H) 96 - 108 mmol/L [facility] Carbon Dioxide 22 22 - 29 mmol/L [facility] Anion Gap 9(L) 12 - 20 [facility] Urea Nitrogen (BUN) 16 9 - 16 mg/dL [facility] Creatinine, Serum 0.77 0.5 - 1.4 mg/dL [facility] Estimated Glomerular Filt Rate >60 [facility] Comment:Chronic Kidney Disea se: Estimated GFR < 60 mL/min/[id number] Kidney Disease: Estimated GFR < 15 mL/min/1.73m2 Glucose 90 60 - 115 mg/dL [facility] Calcium 9.0 8.4 - 10.2 mg/dL [facility] Bilirubin, Total 0.7 0.0 - 1.0 mg/dL [facility] Aspartate Amino Transferase 31 5 - 37 U/L [facility] Alanine Aminotransferase 25 0 - 40 U/L [facility] Total Protein 7.3 6.5 - 8.0 g/dL [facility] Albumin Level 4.1 3.5 - 5.0 g/dL [facility] Alkaline Phosphatase 53 39 - 117 U/L [facility] Blood Venous blood specimen / Unknown 04/18/2024 3:15 PM EST 04/18/2024 5:39 PM EST us Ebony Huertas MD LAB BLOOD ORDERABLES Final Result [facility] [address] [place] [phone] * (ABNORMAL) CBC auto differential (04/18/2024 3:15 PM EST) White Blood Count 5.6 4.8 - 10.8 X10*3/uL [facility] Red Blood Count 4.63 4.60 - 5.80 X10*6/uL [facility] Hemoglobin 14.2 14.0 - 18.0 g/dl [facility] Hematocrit 39.4(L) 42.0 - 52.0 % [facility] Mean Corpuscular Volume 85.1 80.0 - 98.0 fL [facility] Mean Corpuscular Hemoglobin 30.7 27.0 - 33.0 pg [facility] Mean Corpuscular HGB Conc 36.0 31.0 - 36.0 g/dl [facility] Red Cell Distribution Width 12.8 11.0 - 16.0 % [facility] Platelet Count 118(L) 160 - 400 X10*3/uL [facility] Mean Platelet Volume 10.4 9.4 - 12.4 fL [facility] Neutrophils Percent Auto 49.8 45 - 73 % [facility] Imm Gran Pct Auto 0.2 0.0 - 0.4 % [facility] Lymphocytes Percent Auto 28.9 20 - 40 % [facility] Monocytes Percent Auto 13.6(H) 2 - 11 % [facility] Eosinophils Percent Auto 7.0(H) 0 - 4 % [facility] Basophils Percent Auto 0.5 0 - 2 % [facility] NRBC Pct Auto 0.0 0.0 - 0.2 /100WBC [facility] Neutrophils Absolute Auto 2.8 2.0 - 8.3 x10*3/uL [facility] Imm Gran Abs Auto 0.01 0.00 - 0.03 X10*3/uL [facility] Lymphocytes Absolute Auto 1.6 1.2 - 4.9 X10*3/uL [facility] Monocytes Absolute Auto 0.8 0.1 - 1.2 X10*3/uL [facility] Eosinophils Absolute Auto 0.4 0.0 - 0.4 X10*3/uL [facility] Basophils Absolute Auto 0.0 0.0 - 0.2 X10*3/uL [facility] NRBC Abs Auto 0.000 0.0 - 0.012 X10*3/uL [facility] Blood Venous blood specimen / Unknown 04/18/2024 3:15 PM EST 04/18/2024 5:39 PM EST us Ebony Huertas MD LAB BLOOD ORDERABLES Final Result [facility] [address] [place] [phone] [phone] documented in this encounter Visit Diagnoses Diagnosis Pre-op evaluation- Primary LBBB (left bundle branch block) Other left bundle branch block documented in this encounter Additional Health Concerns Assessment Noted Time PHQ-9 Depression Total Score: 10 023 2:09 PM EST documented as of this encounter Care Teams And Drying Supervisor Cooking Casing Relationship Specialty Start Date End Date Marii Mcmillan MD [address] [place] [address] PCP - General Family Medicine 07/11/21 Evelyne Green Angle Roll OperatorRetail Maintenance Technician 12/09/23 documented as of this encounter
--- OUTSIDE RECORDS SUMMARY | 2024-05-18 07:19 | XMS_ITS | Encounter Summary ---
Author Organization [employer] Address [address] [facility] 7t [place] [address] Care Team Providers Care Skid Road Worker Name Role Phone Marii Mcmillan MD Primary Care Provider [phone] Reason for Visit * Reason Comments Med Change Request Encounter Details Date Type Department Care Team ([facility] Contact Info) Description 05/27/[address] [facility]C MED & PEDS [address] [place] [address] Marii Mcmillan MD [address] [place] [address] Takes dietary supplements Social History Tobacco Use [...] 05/30/2024 2:00 PM EDT Telemedicine [facility] MED & PEDS [address] [place] [address] Leelee Castaneda, RN [address] [place] [address] documented as of this encounter Visit Diagnoses Diagnosis Takes dietary supplements documented in this encounter Additional Health Concerns Assessment Noted Time PHQ-9 Depression Total Score: 10 023 2:09 PM EST documented as of this encounter Care Teams Skid Road Worker Relationship Specialty Start Date End Date Marii Mcmillan MD [address] [place] [address] PCP - General Family Medicine 07/11/21 Evelyne Green Jewellery DesignerBoatwright 12/09/23 documented as of this encounter
--- OUTSIDE RECORDS SUMMARY | 2024-05-18 07:19 | XMS_ITS | Encounter Summary ---
Author Organization [employer] Address [address] [facility] [address] 7t [place] [address] Care Team Providers Care All Source Intelligence Name Role Phone Marii Mcmillan MD Primary Care Provider Encounter Details Date Type Department Care Team (Late st Contact Info) Description 06/22/2023 Telephone [facility] MEDICINE [address] [place] [address] Marii Mcmillan MD [address] [place] [address] Social History Tobacco Use Types Packs/Day Years [...] [facility] MED & PEDS [address] [place] [address] Leelee Castaneda, RN [address] [place] [address] documented as of this encounter Visit Diagnoses Not on filedocumented in this encounter Additional Health Concerns Assessment Noted Time PHQ-9 Depression Total Score: 10 023 2:09 PM EST documented as of this encounter Care Teams All Source Intelligence Relationship Specialty Start Date End Date Marii Mcmillan MD [address] [place] [address] PCP - General Family Medicine 07/11/21 Evelyne Green Cable Tower OperatorBullet Maker 12/09/23 documented as of this encounter
--- OUTSIDE RECORDS SUMMARY | 2024-05-18 07:19 | XMS_ITS | Encounter Summary ---
Author Organization [employer] Address [address] [facility] [address]t [place] [address] Care Team Providers Care Pooling Operator Name Role Phone Marii Mcmillan MD Primary Care Provider [phone] Reason for Visit * Reason Onset Date Comments Appointment Request 01/11/2024 Encounter Details Date Type Department Care Team ([facility] Contact Info) Description 01/11/2024 Telephone [facility] MEDIC[facility] [address] [place] [address] Marii Mcmillan MD 505 [place] [address] Appointment Request Social History Tobacco Use Types [...] from pt calling in regards to tomorrows BIOMEDICAL TECHNICIAN visit stating he is feeling sick and is wondering ifhe can change appt to a telephone visit. Please contact pt at [phone]. documented in this encounter Plan of Treatment Upcoming Encounters Date Type Department Care Team (Late st Contact Info) Description 05/30/2024 2:00 PM EDT Telemedicine [facility] MED & PEDS [address] [place] [address] Leelee Castaneda, RN [address] [place] [address] documented as of this encounter Visit Diagnoses Not on filedocumented in this encounter Additional Health Concerns Assessment Noted Time PHQ-9 Depression Total Score: 10 023 2:09 PM EST documented as of this encounter Care Teams Pooling Operator Relationship Specialty Start Date End Date Marii Mcmillan MD [address] [place] [address] PCP - General Family Medicine 07/11/21 Evelyne Green Automotive Service DirectorJet Mechanic 12/09/23 documented as of this encounter
--- OUTSIDE RECORDS SUMMARY | 2024-05-18 07:19 | XMS_ITS | Encounter Summary ---
Author Organization [employer] Address 75 [facility] 7t [place] [address] Care Team Providers Care Car Hop Name Role Phone Marii Mcmillan MD Primary Care Provider [phone] Encounter Details Date Type Department Care Team ([facility] Contact Info) Description 04/21/2024 Telephone [facility]C MED & PEDS [address] [place] [address] Gildardo Huertas MD [address] [place] [address] Social History Tobacco Use Types Packs/Day Years [...] Telemedicine [facility] MED & PEDS [address] [place] [address] Leelee Castaneda, REGINA 505 [place] [address] documented as of this encounter Visit Diagnoses Not on filedocumented in this encounter Additional Health Concerns Assessment Noted Time PHQ-9 Depression Total Score: 10 023 2:09 PM EST documented as of this encounter Care Teams Car Hop Relationship Specialty Start Date End Date Marii Mcmillan MD [address] [place] [address] PCP - General Family Medicine 07/11/21 Evelyne Green District Manager Postal ServiceEnvironmental Economist 12/09/23 documented as of this encounter
--- OUTSIDE RECORDS SUMMARY | 2024-05-18 07:19 | XMS_ITS | Encounter Summary ---
Author Organization [employer] Address 75 [facility] 7t [place] [address] Care Team Providers Care Aerospace Project Engineer Name Role Phone Marii Mcmillan MD Primary Care Provider [phone] Reason for Visit * Reason Comments Med Change Request Encounter Details Date Type Department Care Team ([facility] Contact Info) Description 05/29/2022 Refill [facility] MED & PEDS [address] [place] [address] Marii Mcmillan MD 505 [place] [address] Takes dietary supplements Social History Tobacco Use [...] Info) Description 05/30/2024 2:00 PM EDT Telemedicine [facility] MED & PEDS [address] [place] [address] Leelee Castaneda, RN 505 [place] [address] documented as of this encounter Visit Diagnoses Diagnosis Takes dietary supplements documented in this encounter Additional Health Concerns Assessment Noted Time PHQ-9 Depression Total Score: 10 023 2:09 PM EST documented as of this encounter Care Teams Aerospace Project Engineer Relationship Specialty Start Date End Date Marii Mcmillan MD [address] [place] [address] PCP - General Family Medicine 07/11/21 Evelyne Green Biological Science AideChannel Cementer Outsole Machine 12/09/23 documented as of this encounter
--- OUTSIDE RECORDS SUMMARY | 2024-05-18 07:19 | XMS_ITS | Encounter Summary ---
Author Organization [employer] Address 75 [facility] 7t [place] [address] Care Team Providers Care Roaster Helper Name Role Phone Marii Mcmillan MD Primary Care Provider [phone] Reason for Visit * Reason Onset Date Comments CHART PREP 01/26/2024 Encounter Details Date Type Department Care Team ([facility] Contact Info) Description 01/26/2024 Telephone [facility] [address] [place] [address] Marii Mcmillan MD [address] [place] [address] CHART PREP Social History Tobacco Use Types [...] Info) Description 05/30/2024 2:00 PM EDT Telemedicine [facility] MED & PEDS [address] [place] [address] Leelee Castaneda, RN [address] [place] [address] documented as of this encounter Visit Diagnoses Diagnosis Polyarthralgia Pain in joint, multiple sites documented in this encounter Additional Health Concerns Assessment Noted Time PHQ-9 Depression Total Score: 10 023 2:09 PM EST documented as of this encounter Care Teams Roaster Helper Relationship Specialty Start Date End Date Marii Mcmillan MD [address] [place] [address] PCP - General Family Medicine 07/11/21 Evelyne Green Knitted Cloth ExaminerElectric Pile Driver Operator 12/09/23 documented as of this encounter
--- OUTSIDE RECORDS SUMMARY | 2024-05-18 07:19 | XMS_ITS | Encounter Summary ---
Author Organization [employer] Address 75 [facility] 7t [place] [address] Care Team Providers Care Detective Lieutenant Name Role Phone Marii Mcmillan MD Primary [...] 05/30/2024 2:00 PM EDT Telemedicine [facility] MED & PEDS [address] [place] [address] Leelee Castaneda, RN [address] [place] [address] documented as of this encounter Visit Diagnoses Not on filedocumented in this encounter Additional Health Concerns Assessment Noted Time PHQ-9 Depression Total Score: 10 023 2:09 PM EST documented as of this encounter Care Teams Detective Lieutenant Relationship Specialty Start Date End Date Marii Mcmillan MD [address] [place] [address] PCP - General Family Medicine 07/11/21 Evelyne Green Sanding Machine BufferSurveyor Helper 12/09/23 documented as of this encounter
--- OUTSIDE RECORDS SUMMARY | 2024-05-18 07:19 | XMS_ITS | Encounter Summary ---
Author Organization [employer] Address [address] [facility] 7t [place] [address] Care Team Providers Care Hole Digger Name Role Phone Marii Mcmillan MD Primary Care Provider [phone] Reason for Visit * Reason Onset Date Comments Med Change Request 11/04/2023 Encounter Details Date Type Department Care Team ([facility] Contact Info) Description 11/04/2023 Telephone [facility] MEDICINE [address] [place] [address] Marii Mcmillan MD 505 [place] [address] Med Change Request Social History Tobacco Use [...] Info) Description 05/30/2024 2:00 PM EDT Telemedicine [facility] CHC MED & PEDS [address] [place] [address] Leelee Castaneda, RN [address] [place] [address] documented as of this encounter Visit Diagnoses Not on filedocumented in this encounter Additional Health Concerns Assessment Noted Time PHQ-9 Depression Total Score: 10 023 2:09 PM EST documented as of this encounter Care Teams Hole Digger Relationship Specialty Start Date End Date Marii Mcmillan MD [address] [place] [address] PCP - General Family Medicine 07/11/21 Evelyne Green Manager MaritimeCertified Mortician 12/09/23 documented as of this encounter
--- OUTSIDE RECORDS SUMMARY | 2024-05-18 07:19 | XMS_ITS | Encounter Summary ---
Author Organization [employer] Address 75 [facility] 7t [place] [address] Care Team Providers Care Spun Paste Machine Operator Name Role Phone Marii Mcmillan MD Primary Care Provider [phone] Reason for Visit * Reason Onset Date Comments Med Refill 04/27/2024 Encounter Details Date Type Department Care Team (Late st Contact Info) Description 04/27/2024 Refill [facility] MEDICINE [address] [place] [address] Marii Mcmillan MD 505 [place] [address] Polyarthralgia Social History Tobacco Use Types Packs/Day [...] 5-325 MG tablet To be sent to: [facility]/pharmacy #[id number] MARY CARIAS - [phone] [facility] documented in this encounter Plan of Treatment Upcoming Encounters Date Type Department Care Team (Late st Contact Info) Description 05/30/2024 2:00 PM EDT Telemedicine [facility] MED & PEDS [address] [place] [address] Leelee Castaneda, RN 505 [place] [address] documented as of this encounter Visit Diagnoses Diagnosis Polyarthralgia Pain in joint, multiple sites documented in this encounter Additional Health Concerns Assessment Noted Time PHQ-9 Depression Total Score: 10 023 2:09 PM EST documented as of this encounter Care Teams Spun Paste Machine Operator Relationship Specialty Start Date End Date Marii Mcmillan MD [address] [place] [address] PCP - General Family Medicine 07/11/21 Evelyne Green Housekeeper NannyIncident Engineer 12/09/23 documented as of this encounter
--- OUTSIDE RECORDS SUMMARY | 2024-05-18 07:19 | XMS_ITS | Encounter Summary ---
Author Organization [employer] Address [address] [facility] 7t [place] [address] Care Team Providers Care Support Group Manager Name Role Phone Marii Mcmillan MD Primary Care Provider [phone] Reason for Visit * Reason Onset Date Comments Med Refill 01/28/2024 Encounter Details Date Type Department Care Team ([facility] st Contact Info) Description 01/28/2024 Telephone [facility] MEDICINE [address] [place] [address] Marii Mcmillan MD [address] [place] [address] Med Refill Social History Tobacco Use Types [...] 5-325 MG tablet To be sent to: [facility]/pharmacy #[id number] MARY CAR[place]AS - [address] [place] [address] documented in this encounter Plan of Treatment Upcoming Encounters Date Type Department Care Team (Late st Contact Info) Description 05/30/2024 2:00 PM EDT Telemedicine [facility] CHC MED & PEDS [address] [place] [address] Leelee Castaneda, RN 505 [place] [address] documented as of this encounter Visit Diagnoses Not on filedocumented in this encounter Additional Health Concerns Assessment Noted Time PHQ-9 Depression Total Score: 10 023 2:09 PM EST documented as of this encounter Care Teams Support Group Manager Relationship Specialty Start Date End Date Marii Mcmillan MD [address] [place] [address] PCP - General Family Medicine 07/11/21 Evelyne Green Commercial Credit OfficerBurning Supervisor 12/09/23 documented as of this encounter
--- OUTSIDE RECORDS SUMMARY | 2024-05-18 07:19 | XMS_ITS | Encounter Summary ---
Author Organization [employer] Address [address] [place] [address] 7t [place] [address] Care Team Providers Care Women Specialist Name Role Phone Marii Mcmillan MD Primary Care Provider [phone] Reason for Referral * Imaging (STAT) - Closed Specialty Diagnoses / Procedures Referred By Contac t Referred To Contact Radiology Diagnoses Mass of right inguinal region Procedures Us Pelvis complete Gildardo Huertas MD [address] [place] [address] Phone: tel: fax: [address] Phone: tel: fax: Referral ID Status Reason Start Date Expiration Date Visits Re quested Visits Authorized [id number] Closed 09/18/2022 09/18/2023 1 1 Encounter Details Date Type Department Care Team (Late st Contact Info) Description 09/18/2022 Orders Only [facility] CHC MED & PEDS [address] [place] [address] Gildardo Huertas MD [address] [place], [place] [phone] Mass of right inguinal region (Primary Dx) [...] Upcoming Encounters Date Type Department Care Team ([facility] st Contact Info) Description 05/30/2024 2:00 PM EDT Telemedicine [facility] MED & PEDS [address] [place] [address] Leelee Castaneda, RN [address] [place] [address] Scheduled Orders Name Type Priority Associated Diagnoses [...] EDT Narrative 09/25/2022 10:43 AM EDT ? [facility] ?[address] ?[place] [address] ? Ultrasound Report ? Signed ? Patient: Grimm,Manuel D ?MR#: [id number] ?? [id number] ? : 1960 ?Acct:[id number] ? Age/Sex: 62 / M ?ADM Date: 07/06/23 ? Loc: HO.US ? Attending Dr: Marii Mcmillan MD ? Ordering Physician: Marii Mcmillan MD ?? Date of Service: 09/18/22 ?? Procedure(s): US pelvic limited ?? Accession Number(s): [id number] ? cc: Marii Mcmillan MD ? EXAMINATION: [...] 1039 ? DD/ 1503 ? TD/TT: ? Oil Developer: ? Procedure Note [place], Image - 09/25/2022 [place] [address] Ultrasound Report Signed Patient: Manuel Grimm DMR#: [id number] : 1Acct:[id number] Age/Sex: 62 / MADM Date: 09/18/22 Loc: HO.US Attending Dr: Marii Mcmillan MD Ordering Physician: Marii Mcmillan MD Date of Service: 09/18/22 Procedure(s): US pelvic limited Accession Number(s): [id number] cc: Marii Mcmillan MD EXAMINATION: US RIGHT [...] in OV> 09/25/22 1039 DD/ 1503 TD/TT: Oil Developer: [facility] External Provider IMG US PROCEDURES Final Result documented in this encounter Visit Diagnoses Diagnosis Mass of right inguinal region- Primary documented in this encounter Additional Health Concerns Assessment Noted Time PHQ-9 Depression Total Score: 10 023 2:09 PM EST documented as of this encounter Care Teams Women Specialist Relationship Specialty Start Date End Date Marii Mcmillan MD [address] [place] [address] PCP - General Family Medicine 07/11/21 Evelyne Green Recycling AssistantAging Box Hand 12/09/23 documented as of this encounter
--- OUTSIDE RECORDS SUMMARY | 2024-05-18 07:19 | XMS_ITS | Encounter Summary ---
Author Organization [employer] Address [address] [facility] 7t [place] [address] Care Team Providers Care Retort Operator Name Role Phone Marii Mcmillan MD Primary Care Provider [phone] Encounter Details Date Type Department Care Team (Late st Contact Info) Description 04/29/2024 Orders Only [facility] CHC MED & PEDS [address] [place] [address] Star Dick MD [address] [place] [address] Polyarthralgia Social History Tobacco Use Types Packs/Day [...] 05/30/2024 2:00 PM EDT Telemedicine [facility] MED & PEDS [address] [place] [address] Leelee Castaneda, RN [address] [place] [address] documented as of this encounter Visit Diagnoses Diagnosis Polyarthralgia Pain in joint, multiple sites documented in this encounter Additional Health Concerns Assessment Noted Time PHQ-9 Depression Total Score: 10 023 2:09 PM EST documented as of this encounter Care Teams Retort Operator Relationship Specialty Start Date End Date Marii Mcmillan MD [address] [place] [address] PCP - General Family Medicine 07/11/21 Evelyne Green Wireless Communications EngineerPhotographer Aerial 12/09/23 documented as of this encounter
--- OUTSIDE RECORDS SUMMARY | 2024-05-18 07:19 | XMS_ITS | Clinical Summary ---
Author Organization [employer] Address [address] [facility] 7t [place] [address] Care Team Providers Care Aircraft Sales Representative Name Role Phone Marii Mcmillan MD Primary Care Provider [phone] Allergies Active Allergy Reactions Criticality Noted Date [...] wash off 8-10 hours later 60 g Active tamsulosin (Flomax) 0.4 MG 24 hr [...] BY MOUTH EVERY DAY 90 tablet 1 Active oxyCODONE-acetami nophen (Percocet) 5-325 MG tabletIndications :Polyarthralgia Take 1 tablet by mouth every 6 (six) hours if needed for severe pain for up to 28 days. 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 Assessment & Plan (04/21/2023 1:34 PM EST): Patient with Hx of Hip Arthritis stated that medications are not improving hip pain. Therefore, will discontinue prior medications, and will be prescribing Oxycodone. Recommended to follow up with an in-person visit. Assessment & Plan (02/26/2023 3:51 PM EST): Patient that presented [facility] compplaints of R Hip Pain will [...] Provider, Generic External Data 04/29/2024 Orders Only [facility] MED & PEDS [address] [place] [address] RaymundoStar Maciel MD Polyarthralgia 04/27/2024 Refill [facility] MEDICINE [address] [place] [address] Marii Mcmillan MD Polyarthralgia 04/21/2024 Telephone [facility] MED & PEDS [address] [place] [address] Gildardo Huertas MD 04/18/2024 2:00 PM EST Office Visit [facility] MED & PEDS [address] [place] [address] Gildardo Huertas MD Pre-op evaluation (Primary Dx); LBBB (left bundle branch block) 04/18/2024 Travel 03/29/2024 Refill [facility] MED & PEDS [address] [place] [address] Marii Mcmillan MD Polyarthralgia 03/18/2024 Telephone [facility] MED & PEDS [address] [place] [address] Marii Mcmillan MD call back/referral 03/10/2024 2:00 PM EST Clinical Support [facility] MED & PEDS [address] [place] [address] Leelee Castaneda RN Right hip pain 03/10/2024 Travel 03/03/2024 Telephone [facility] MEDICINE [address] [place] [address] [place] [address] Marii Mcmillan MD Pre-op Exam 02/29/2024 Refill [facility] MEDICINE [address] [place] [address] Marii Mcmillan MD Polyarthralgia from Last 3 [...] Upcoming Encounters Date Type Department Care Team ([facility] st Contact Info) Description 05/30/2024 2:00 PM EDT Telemedicine [facility] MED & PEDS [address] [place] [address] Leelee Castaneda, RN [address] [place] [address] Health Maintenance Due Date Last Done Comments [...] PM EST) MRSA Nasal PCR NEGATIVE Negative [facility] SA Nasal PCR NEGATIVE Negative [facility] MRSA Interpretation SEE NOTE [facility] Comment:MRSA target DNA not detected; SA target DNA not detected.A MRSA NEGATIVE, SA NEGATIVE test result does not precludeMRSA or SA nasal colonization. 05/09/2024 1:00 PM EST 05/09/2024 1:18 PM EST us Generic External Data Provider LAB MICROBIOLOGY - GENERAL ORDERABLES Final Result [facility] [address] [place] [address] [phone] * ECG 12 lead (04/18/2024 4:12 PM EST) Narrative Gildardo Huertas MD - 04/18/2024 4:12 PM EST HR: 65 bpm. [place] 18. ??LBBB. ??High lateral and lateral repolarization disturbance. ??Normal sinus rhythm us Gildardo Huertas MD ECG ORDERABLES Final Resul t * TSH W/Reflex to FT4 (04/18/2024 3:15 PM EST) TSH reflex Free T4 2.40 0.32 - 4.0 uIU/mL [facility] Blood Venous blood specimen / Unknown 04/18/2024 3:15 PM EST 04/18/2024 5:39 PM EST us Gildardo Huertas MD LAB BLOOD ORDERABLES Final Result [facility] [address] [place], [place] [phone] * (ABNORMAL) CBC auto differential (04/18/2024 3:15 PM EST) White Blood Count 5.6 4.8 - 10.8 X10*3/uL [facility] Red Blood Count 4.63 4.60 - 5.80 X10*6/uL [facility] Hemoglobin 14.2 14.0 - 18.0 g/dl [facility] Hematocrit 39.4(L) 42.0 - 52.0 % [facility] Mean Corpuscular Volume 85.1 80.0 - 98.0 fL [facility] Mean Corpuscular Hemoglobin 30.7 27.0 - 33.0 pg [facility] Mean Corpuscular HGB Conc 36.0 31.0 - 36.0 g/dl [facility] Red Cell Distribution Width 12.8 11.0 - 16.0 % [facility] Platelet Count 118(L) 160 - 400 X10*3/uL [facility] Mean Platelet Volume 10.4 9.4 - 12.4 fL [facility] Neutrophils Percent Auto 49.8 45 - 73 % [facility] Imm Gran Pct Auto 0.2 0.0 - 0.4 % [facility] Lymphocytes Percent Auto 28.9 20 - 40 % [facility] Monocytes Percent Auto 13.6(H) 2 - 11 % [facility] Eosinophils Percent Auto 7.0(H) 0 - 4 % [facility] Basophils Percent Auto 0.5 0 - 2 % [facility] NRBC Pct Auto 0.0 0.0 - 0.2 /100WBC [facility] Neutrophils Absolute Auto 2.8 2.0 - 8.3 x10*3/uL [facility] Imm Gran Abs Auto 0.01 0.00 - 0.03 X10*3/uL [facility] Lymphocytes Absolute Auto 1.6 1.2 - 4.9 X10*3/uL [facility] Monocytes Absolute Auto 0.8 0.1 - 1.2 X10*3/uL [facility] Eosinophils Absolute Auto 0.4 0.0 - 0.4 X10*3/uL [facility] Basophils Absolute Auto 0.0 0.0 - 0.2 X10*3/uL [facility] NRBC Abs Auto 0.000 0.0 - 0.012 X10*3/uL [facility] Blood Venous blood specimen / Unknown 04/18/2024 3:15 PM EST 04/18/2024 5:39 PM EST us Gildardo Huertas MD LAB BLOOD ORDERABLES Final Result [facility] [address] [place] [phone] * HIV-1/2 Antigen and Antibodies, Fourth Generation, with Reflexes (04/18/2024 3:15 PM EST) HIV AB/AG Nonreactive Nonreactive [facility] Comment:HIV-1 p24 Ag and/or HIV-1/HIV-2 Ab not detected.A test result that is nonreactive does not exclude thepossibility of exposure to or infection with HIV-1 and/orHIV-2. Nonreactive results in this assay for individualswith prior exposure to HIV-1 and/or HIV-2 may be due toantigen and antibody levels that are below the limit ofdetection of this assay.The legalPAD HIV Ag/Ab Combo assay result andsupplemental assay results should be interpreted inconjunction with the patient's clinical presentation,history and other laboratory results. If the results areinconsistent with clinical evidence, additional testing issuggested to confirm the result. Blood Venous blood specimen / Unknown 04/18/2024 3:15 PM EST 04/18/2024 5:39 PM EST us Gildardo Huertas MD LAB BLOOD ORDERABLES Final Result Performing Organization Address [facility] Co de Phone Number [facility] [address] [place] [phone] * Partial Thromboplastin Time, Activated (APTT) (04/18/2024 3:15 PM EST) Partial Thromboplastin Time 34.9 26.0 - 36.8 SEC [facility] Comment:For information rega rding the monitoring of direct thrombininhibitors, please refer to Pharmacy. Blood Venous blood specimen / Unknown 04/18/2024 3:15 PM EST 04/18/2024 5:39 PM EST Gildardo Huertas MD LAB BLOOD ORDERABLES Final Result Performing Organization Address [facility] Co de Phone Number [facility] [address] [place] [phone] * Prothrombin Time-INR (04/18/2024 3:15 PM EST) Prothrombin Time 11.2 10.9 - 12.4 SEC [facility] INTERNATIONAL NORM RATIO 1.0 0.9 - 1.1 [facility] Comment:INTERNATIONAL NORMAL IZED RATIO (INR) REFERENCE [...] BLOOD ORDERABLES Final Result Performing Organization Address [facility] Co de Phone Number [facility] [address] [place] [phone] * Prealbumin (04/18/2024 3:15 PM EST) Prealbumin 22.0 20 - 40 mg/dL [facility] Blood Venous blood specimen / Unknown 04/18/2024 3:15 PM EST 04/18/2024 5:39 PM EST Gildardo Huertas MD LAB BLOOD ORDERABLES Final Result [facility] [address] [place] [address] [phone] * (ABNORMAL) Comprehensive Metabolic Panel (04/18/2024 3:15 PM EST) Sodium 137 135 - 145 mmol/L [facility] Potassium 4.0 3.3 - 5.1 mmol/L [facility] Chloride 110(H) 96 - 108 mmol/L [facility] Carbon Dioxide 22 22 - 29 mmol/L [facility] Anion Gap 9(L) 12 - 20 [facility] Urea Nitrogen (BUN) 16 9 - 16 mg/dL [facility] Creatinine, Serum 0.77 0.5 - 1.4 mg/dL [facility] Estimated Glomerular Filt Rate >60 [facility] Comment:Chronic Kidney Disea se: Estimated GFR < 60 mL/min/1.16o8Huznhs Kidney Disease: Estimated GFR < 15 mL/min/1.73m2 Glucose 90 60 - 115 mg/dL [facility] Calcium 9.0 8.4 - 10.2 mg/dL [facility] Bilirubin, Total 0.7 0.0 - 1.0 mg/dL [facility] Aspartate Amino Transferase 31 5 - 37 U/L [facility] Alanine Aminotransferase 25 0 - 40 U/L [facility] Total Protein 7.3 6.5 - 8.0 g/dL [facility] Albumin Level 4.1 3.5 - 5.0 g/dL [facility] Alkaline Phosphatase 53 39 - 117 U/L [facility] Blood Venous blood specimen / Unknown 04/18/2024 3:15 PM EST 04/18/2024 5:39 PM EST us Gildardo Huertas MD LAB BLOOD ORDERABLES Final Result [facility] [address] [place] [address] [phone] * POCT MITCHELL-14 Urine Drug Screen (03/10/2024 2:25 PM EST) THC Positive Oxycodone Screen, Urine Positive Urine Urine specimen obtained by clean catch procedure / Unknown 03/10/2024 2:25 PM EST Narrative Leelee Castaneda RN - 03/10/2024 2:25 PM EST Lot# [id number] Exp: 02-19-25 us Marii Mcmillan MD POINT [...] ?? Fortunato GIBSON et al. ISHAN. 2013;310(19): 8107-4941 ?? (http://education.[employer].Sa[employer]i Art/faq/MAV224) Non-HDL Cholesterol 124 <130 mg/dL (calc) [facility] Comment: For patients with diabetes plus 1 major ASCVD risk ?? factor, treating to a non-HDL-C goal of <100 mg/dL ?? (LDL-C of <70 mg/dL) is considered a therapeutic ?? option. Triglycerides 102 <150 mg/dL [facility] 07/26/2021 10:5 8 AM EDT us Marii Mcmillan MD LAB BLOOD ORDERABLES Final Re sult [facility] [address] from Last 3 Months or Most Recently Relevant to Health Maintenance Insurance [employer] Care Teams Aircraft Sales Representative Relationship Specialty Start Date End Date Marii Mcmillan MD [address] [place] [address] PCP - General Family Medicine 07/11/21 Evelyne Green Golf Course KeeperRock Splitter 12/09/23
[2024-05-18 09:01] LABS: MANUAL DIFF FLAG NO
[2024-05-18 09:17] LABS: Basophils Percent Auto 0.6 % (0-2); Eosinophils Absolute Auto 0.4 X10*3/uL (0.0-0.4); Eosinophils Percent Auto 6.8 % (0-4); Hematocrit 40.4 % (42.0-52.0); Hemoglobin 14.4 g/dl (14.0-18.0); Imm Gran Abs Auto 0.01 X10*3/uL (0.00-0.03); Imm Gran Pct Auto 0.2 % (0.0-0.4); Lymphocytes Absolute Auto 1.6 X10*3/uL (1.2-4.9); Lymphocytes Percent Auto 31.2 % (20-40); Mean Corpuscular HGB Conc 35.6 g/dl (31.0-36.0); Mean Corpuscular Hemoglobin 30.9 pg (27.0-33.0); Mean Corpuscular Volume 86.7 fL (80.0-98.0); Mean Platelet Volume 10.2 fL (9.4-12.4); Monocytes Absolute Auto 0.9 X10*3/uL (0.1-1.2); Neutrophils Absolute Auto 2.3 x10*3/uL (2.0-8.3); Neutrophils Percent Auto 44.2 % (45-73); Platelet Count 119 X10*3/uL (160-400); Red Blood Count 4.66 X10*6/uL (4.60-5.80); Red Cell Distribution Width 13.1 % (11.0-16.0); White Blood Count 5.1 X10*3/uL (4.8-10.8)
[2024-05-18 09:19] LABS: Prothrombin Time 11.1 SEC (10.9-12.4)
[2024-05-18 09:52] LABS: Alanine Aminotransferase 26 U/L (0-40); Albumin Level 4.3 g/dL (3.5-5.0); Alkaline Phosphatase 60 U/L (39-117); Anion Gap 11 (12-20); Aspartate Amino Transferase 29 U/L (5-37); Bilirubin Total 0.9 mg/dL (0.0-1.0); Blood Urea Nitrogen 21 mg/dL (9-16); Calcium 9.4 mg/dL (8.4-10.2); Carbon Dioxide 24 mmol/L (22-29); Chloride 109 mmol/L (96-108); Estimated Glomerular Filt Rate > 60; Glucose Random 85 mg/dL (60-115); Potassium 3.6 mmol/L (3.3-5.1); Sodium 140 mmol/L (135-145); Total Protein 7.6 g/dL (6.5-8.0)
[2024-05-18 10:08] LABS: Ferritin 351 ng/mL (20-250); Vitamin D 25-OH Total 20.4 ng/mL (>30)
[2024-05-18 10:21] LABS: Folate 11.8 ng/mL (> or = 4.0); Vitamin B12 617 pg/mL (200-900)
[2024-05-22 00:19] LABS: Vitamin A 47 mcg/dL (38-98)
[2024-05-22 04:04] LABS: Alpha-Tocopherol 7.4 mg/L (5.7-19.9); Beta-Gamma Tocopherol <1.0 mg/L (<=4.3)
[2024-05-22 16:28] LABS: Vitamin B6 5.9 ng/mL (2.1-21.7)
[2024-05-23 00:18] LABS: Vitamin K1 1813 pg/mL (130-1500)
[2024-05-24 14:33] LABS: Vitamin B5 (Pantothenic Acid) <=40 ng/mL (<275)
[2024-05-28 08:34] LABS: Vitamin B1 12 nmol/L (8-30)
== END 2024-05-18 07:17 | disposition home or self-care (01) ==
LOC: HO.HMGCLDS 07:16
PROVIDERS: PCP Family Medicine; Visit Provider Internal Medicine Gastroenterology
DX: K74.60 Unspecified cirrhosis of liver (principal); K75.81 Nonalcoholic steatohepatitis (NASH)
CPT/HCPCS: 36415; 80053; 82306; 82607; 82728; 82746; 83735; 84207; 84425; 84446; 84590; 84591; 84597; 85025; 85610

== ENCOUNTER 2024-05-23 13:03 | Outpatient (AMB) | payer MEDICAID, SELFPAY ==
--- NOTE | 2024-05-23 13:12 | MHC.OFFVIS ---
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 surg 06/06 Allergies NSAIDS (Non-Steroidal Anti-Inflamma Allergy (Severe, Verified 05/16/24 11:33) advised not to take due to bleeding Penicillins [PENICILLINS] Allergy (Severe, Verified 05/16/24 11:33) Rash, hives aspirin [ASA] Allergy (Unknown, Verified 05/16/24 11:33) Unknown but cannot take naproxen [NAPROXEN] Allergy (Unknown, Verified 05/16/24 11:33) ABDOMINAL PAIN, ABD PAIN tuberculin, purified protein deriva [TB TEST] Allergy (Unknown, Verified 05/16/24 11:33) hx TB as a child acetaminophen [From TYLENOL] Adverse Reaction (Unknown, Verified 05/16/24 11:33) Abdominal Pain mesalamine [From ASACOL] Adverse Reaction (Unknown, Verified 05/16/24 11:33) worsening abdominal pain pseudoephedrine [From SUDAFED] Adverse Reaction (Unknown, Verified 05/16/24 11:33) advised not to take ibuprofen [From Motrin] Adverse Reaction (Verified 05/16/24 11:33) Abdominal Pain Medication List - Last Reconciled 05/23/24 by Hermes Toussaint MD atorvastatin (Lipitor) 1 tab PO DAILY hydrochlorothiazide 1 tab PO DAILY oxycodone-acetaminophen 5-325 mg 1 tab PO Q8H PRN phytonadione (vitamin K1) 100 mcg PO DAILY potassium citrate ER 10 mEq PO DAILY [Raised toilet seat duration - 99 days] tamsulosin 1 cap PO DAILY turmeric root-clementina root ext 150-25 mg 1 tab PO DAILY walker Folding Front wheeled walker duration 99 days HPI Comments Details: Manuel is here for consultation regarding preoperative risk stratification for hip surgery scheduled in 2 weeks. He states that he has had prior cardiac catheterizations in [facility] as well as [place] but more than 10-15 years ago. Apparently they were unremarkable per patient. He gets chest pains off and on. Lot of times, these happen with anxiety than anything else. With exertion, he has not had any clear chest pains. However, because of the hip discomfort, he does not walk much. He states he was told to have an arrhythmia in the past and there is past history mentioned as atrial fibrillation but again no clear documentation about this. History of smoking, alcohol excess as well as substance abuse but nothing in the last several years. He does have a history of alcoholic cirrhosis of liver and chronic hepatitis-C. [facility] Medical History (Updated 05/23/24 @ 13:44 by Hermes Toussaint MD) Wears dentures Legally blind in left eye, as defined in [place] Deafness in right ear Arthritis Back pain Hx of hepatitis C Hx of tuberculosis PTSD (post-traumatic stress disorder) COPD (chronic obstructive pulmonary disease) Asthma Left bundle branch block (LBBB) Thrombocytopenia Afib Glaucoma Hypertension Anxiety Depression Cirrhosis Surgical History (Updated 05/09/24 @ 12:46 by Gege Sandoval, REGINA) History of tooth extraction (~2002) History of cardiac catheterization (~2009) History of ear surgery (~1990) History of cholecystectomy (~2009) H/O abdominal surgery S/P LASIK surgery of both eyes Family History Mother Breast cancer Rheumatoid arthritis Social History (Updated 05/09/24 @ 12:21 by Gege Sandoval, REGINA) Household Members: Friend(s) Household Members Other:: niece, adult Housing: House Are you a primary rn progressive care unit to a significant other at home: No Do you presently have visiting nurse or other home services: No 75 years or older and lives alone: No Patient Tobacco Use Status: Former Tobacco user Tobacco use type: Cigarette Second Hand Smoke Exposure: No Substance Use Type: Marijuana service: No Current occupational status: disabled Review of Systems Const Denies weakness ENT Denies dizziness Card Denies chest pain, Denies chest pain with activity, Denies syncope, Denies rapid heart rate, Denies pedal edema, Denies edema, Denies leg edema, Denies lightheadedness, Denies palpitations, Denies dyspnea, Denies dyspnea on exertion and Denies orthopnea Resp Denies cough, Denies dyspnea and Denies dyspnea on exertion GI Denies hematochezia and Denies change in stool character Musc Denies abnormal gait, Denies muscle cramps, Denies muscle weakness, Denies numbness, Denies radiating pain into limb and Denies tingling Neuro Denies abnormal gait, Denies dizziness, Denies syncope, Denies numbness, Denies tingling and Denies weakness Endo Denies palpitations Physical Exam Vital Signs: Last Vital Signs Pulse 75 05/23/24 13:13 BP 110/60 05/23/24 13:13 BMI result Body Mass Index 22.4 Const General: comfortable and no acute distress Orientation/consciousness: patient oriented x3 HEENT Other: Unremarkable Head: Yes normal to inspection Neck Neck: Yes normal visual inspection Chest Chest palpation & inspection: normal inspection of the chest Resp Auscultation: clear to auscultation bilaterally Cardio Palpation: normal PMI Heart sounds: S1 normal heart sound present, S2 normal heart sound present, no gallops, no murmurs and no rubs GI Palpation (GI): Soft to palpation Back/Spine/Pelvis Other: unremarkable Skin General skin exam: no rashes or lesions noted Neuro General: patient oriented x3 Extrem General: Yes normal to inspection Psych Mental Status: mental status grossly normal Office Procedures EKG Details: EKG with sinus rhythm at 75/Min; nonspecific intraventricular conduction defect/LBBB pattern. [id number], Complete Assessment & Plan Assessment & Plan (1) Preoperative cardiovascular examination: Code(s): Z01.810 - Encounter for preprocedural cardiovascular examination Category: Medical (2) Left bundle branch block (LBBB): Code(s): I44.7 - Left bundle-branch block, unspecified Category: Medical (3) Precordial chest pain: Code(s): R07.2 - Precordial pain Category: Medical Plan IVCD/LBBB of unknown duration; remote history of cardiac catheterization with unknown findings; cirrhosis but normal synthetic function; chest pain with anxiety; requires preoperative evaluation for hip surgery; limited ambulation due to hip pain. We will plan on echocardiogram and pharmacological stress perfusion imaging study. Addendum to be made after review of the above. Orders: Orders CA echo transthoracic complete Today Z.810 - Encounter for preprocedural cardiovascular examination CA lexiscan stress w sandra Today I20.9 - Angina pectoris, unspecified, Z01.810 - Encounter for preprocedural cardiovascular examination NM cardiolite stress test Today R07.2 - Precordial pain, Z.810 - Encounter for preprocedural cardiovascular examination Coding Level of Care Code New Pt Level 4 (04465) Diagnoses Preoperative cardiovascular examination Z01.810 Left bundle branch block (LBBB) I44.7 Precordial chest pain R07.2 CPT Codes EKG - CPT: 69571-Akopfytihndzzirew, Complete ([id number])
[2024-05-23 13:13] VITALS: BP 110/60; PULSE 75; BMI 22.4
--- OUTSIDE RECORDS SUMMARY | 2024-05-23 14:39 | XMS_ITS | Encounter Summary ---
Author Organization [employer] Address [address] 7[address] [place] [address] Care Team Providers Care Production Line Assembler Name Role Phone Marii Mcmillan MD Primary Care Provider [phone] Reason for Visit * Reason Onset Date Comments PT1 05/15/2023 Encounter Details Date Type Department Care Team ([facility] st Contact Info) Description 05/15/2023 Telephone [facility] MEDICINE [address] [place] [address] Marii Mcmillan MD 505 [place] [address] PT1 Social History Tobacco Use Types Packs/Day [...] visits) ( x monthly, weekly, daily) Address: [address] [place] [address] Facility[facility] Wheel Chair: NO Systems Lead Needed: NO Address and phone confirmed by Evelyne CHAWLA documented in this encounter Plan of Treatment Upcoming Encounters Date Type Department Care Team (Late st Contact Info) Description 05/30/2024 2:00 PM EDT Telemedicine [facility] MED & PEDS [address] [place] [address] Leelee Castaneda, REGINA 505 [place] [address] documented as of this encounter Visit Diagnoses Not on filedocumented in this encounter Additional Health Concerns Assessment Noted Time PHQ-9 Depression Total Score: 10 023 2:09 PM EST documented as of this encounter Care Teams Production Line Assembler Relationship Specialty Start Date End Date Marii Mcmillan MD [address] [place] [address] PCP - General Family Medicine 07/11/21 Evelyne Green Recreation SpecialistSwitchboard Clerk 12/09/23 documented as of this encounter
--- OUTSIDE RECORDS SUMMARY | 2024-05-23 14:39 | XMS_ITS | Encounter Summary ---
Author Organization [employer] Address [address] 7[address] [place] [address] Care Team Providers Care Mens Locker Room Attendant Name Role Phone Marii Mcmillan MD Primary Care Provider [phone] Reason for Visit * Reason Onset Date Comments Appointment Request 01/11/2024 Encounter Details Date Type Department Care Team ([facility] Contact Info) Description 01/11/2024 Telephone [facility] MEDICINE [address] [place] [address] Marii Mcmillan MD 505 [place] [address] Appointment Request Social History Tobacco Use Types [...] from pt calling in regards to tomorrows LIMNOLOGIST visit stating he is feeling sick and is wondering ifhe can change appt to a telephone visit. Please contact pt at [phone]. documented in this encounter Plan of Treatment Upcoming Encounters Date Type Department Care Team (Late st Contact Info) Description 05/30/2024 2:00 PM EDT Telemedicine [facility] MED & PEDS 505 [place] [address] Leelee Castaneda, RN 505 [place] [address] documented as of this encounter Visit Diagnoses Not on filedocumented in this encounter Additional Health Concerns Assessment Noted Time PHQ-9 Depression Total Score: 10 023 2:09 PM EST documented as of this encounter Care Teams Mens Locker Room Attendant Relationship Specialty Start Date End Date Marii Mcmillan MD 230 [place] [address] PCP - General Family Medicine 07/11/21 Evelyne Green Deck ScalerFinished Carpet Inspector 12/09/23 documented as of this encounter
--- OUTSIDE RECORDS SUMMARY | 2024-05-23 14:39 | XMS_ITS | Encounter Summary ---
Author Organization [employer] Address [address] [facility] 7t [place] [address] Care Team Providers Care Claims Clerk Name Role Phone Marii Mcmillan MD Primary Care Provider [phone] Reason for Visit * Reason Comments Med Change Request Encounter Details Date Type Department Care Team ([facility] Contact Info) Description 05/29/2022 Refill [facility] MED & PEDS [address] [place] [address] Marii Mcmillan MD 505 [place] [address] Takes dietary supplements Social History Tobacco Use [...] Info) Description 05/30/2024 2:00 PM EDT Telemedicine [facility] MED & PEDS 505 [place] [address] Leelee Castaneda, RN 505 [place] [address] documented as of this encounter Visit Diagnoses Diagnosis Takes dietary supplements documented in this encounter Additional Health Concerns Assessment Noted Time PHQ-9 Depression Total Score: 10 023 2:09 PM EST documented as of this encounter Care Teams Claims Clerk Relationship Specialty Start Date End Date Marii Mcmillan MD [address] [place] [address] PCP - General Family Medicine 07/11/21 Evelyne Green Dairy Processing SupervisorNurse Receptionist 12/09/23 documented as of this encounter
--- OUTSIDE RECORDS SUMMARY | 2024-05-23 14:39 | XMS_ITS | Encounter Summary ---
Author Organization [employer] Address [address] [facility] 7t [place] [address] Care Team Providers Care Distributor Cleaner Name Role Phone Marii Mcmillan MD Primary Care Provider Encounter Details Date Type Department Care Team (Late st Contact Info) Description 04/29/2024 Orders Only [facility] MED & PEDS [address] [place] [address] Star Dick MD [address] [place] [address] Polyarthralgia Social History Tobacco Use Types Packs/Day [...] Info) Description 05/30/2024 2:00 PM EDT Telemedicine [facility] MED & PEDS [address] [place] [address] Leelee Castaneda, RN 505 [place] [address] documented as of this encounter Visit Diagnoses Diagnosis Polyarthralgia Pain in joint, multiple sites documented in this encounter Additional Health Concerns Assessment Noted Time PHQ-9 Depression Total Score: 10 023 2:09 PM EST documented as of this encounter Care Teams Distributor Cleaner Relationship Specialty Start Date End Date Marii Mcmillan MD [address] [place] [address] PCP - General Family Medicine 07/11/21 Evelyne Green Business Process AnalystTrimming Machine Set Up Operator 12/09/23 documented as of this encounter
--- OUTSIDE RECORDS SUMMARY | 2024-05-23 14:39 | XMS_ITS | Encounter Summary ---
Author Organization [employer] Address [address] [facility] 7t [place] [address] Care Team Providers Care Motor Generator Set Operator Name Role Phone Marii Mcmillan MD Primary Care Provider [phone] Encounter Details Date Type Department Care Team (Late st Contact Info) Description 05/18/2024 Orders Only GENERIC EXTERNAL DATA DEPARTMENT Provider, [...] Info) Description 05/30/2024 2:00 PM EDT Telemedicine [facility] MED & PEDS 505 [place] [address] Leelee Castaneda, RN [address] [place] [address] Pending Results Name Type Priority Associated Diagnoses Date /Time Vitamin A Lab Routine 05/18/2024 8:5 7 AM EST Vitamin B6, Plasma Lab Routine 2024 8:57 AM EST documented as of this encounter Procedures Procedure Name Priority Date/Time Associated Diagnosis Comments VITAMIN K1 Routine 05/18/2024 8:57 AM EST VITAMIN D,25-OH,TOTAL,IA Routine 05/18/2024 8:57 AM EST VITAMIN B12/FOLATE, SERUM PANEL Routine 05/18/2024 8:57 AM EST CBC WITH AUTO DIFFERENTIAL Routine 05/18/2024 8:57 AM EST VITAMIN A Routine 05/18/2024 8:57 AM EST PROTHROMBIN TIME-INR Routine 05/18/2024 8:57 AM EST VITAMIN E (TOCOPHEROL) Routine 8:57 AM EST VITAMIN B6 Routine 05/18/2024 8:57 AM EST MAGNESIUM Routine 05/18/2024 8:57 AM EST FERRITIN Routine 05/18/2024 8:57 AM EST COMPREHENSIVE METABOLIC PANEL Routine 05/18/2024 8:57 AM EST documented in this encounter Results * (ABNORMAL) Vitamin K1 (05/18/2024 8:57 AM EST) Vitamin K1 1813(A) 130 - 1500 pg/mL [facility] Comment:This test was develo ped and its analytical performancecharacteristics have been determined by [place] It hasnot been cleared or approved by the U.S. Food and DrugAdministration. This assay has been validated pursuantto the CLIA regulations and is used for clinicalpurposes.THIS TEST WAS PERFORMED AT:[employer] [id number] [place] [address]PEQIJQCLON ROCA MD,PHD 05/18/2024 8:57 AM EST 05/18/2024 8:57 AM EST us Generic External Data Provider LAB BLOOD ORDERAB LES Final Result [facility] [address] [place] [phone] * Vitamin E (Tocopherol) (05/18/2024 8:57 AM EST) Vitamin E, Alpha-Tocopherol 7.4 5.7 - 19.9 mg/L [facility] Comment:Levels of alpha-toco pherol <5 mg/L are consistentwith Vitamin E deficiency in adults. Vitamin E, Dsuw-Cdjsw-Aeyzrlqnoa <1.0 <=4.3 mg/L [facility] Comment:Vitamin supplementat ion within 24 hours prior toblood draw may affect the accuracy of the results.This test was developed and its analytical performancecharacteristics have been determined by [place]. It hasnot been cleared or approved by the U.S. Food and DrugAdministration. This assay has been validated pursuantto the CLIA regulations and is used for clinicalpurposes.THIS TEST WAS PERFORMED AT:[id number] [place] [id number] ROCA MD,PHD 05/18/2024 8:57 AM EST 05/18/2024 8:57 AM EST Generic External Data Provider LAB BLOOD ORDERAB LES Final Result Performing Organization Address [facility] Co de Phone Number [facility] [address] [place] [phone] * Vitamin B12 (Cobalamin) and Folate Panel, Serum (05/18/2024 8:57 AM EST) Vitamin B12 617 200 - 900 pg/mL [facility] Comment:NORMAL 200-900 PG/ML INDETERMINATE 160-199 PG/ML DEFICIENT < 160 PG/ML Folate 11.8 > or = 4.0 ng/mL [facility] Comment:Reference Values:> o r = 4.0 ng/mL< 4.0 ng/mL suggests folate deficiency Methotrexate, aminopterin and folinic acid(leucovorin) are chemotherapeutic agents whose molecularstructures are similar to folate; therefore, the Architectfolate assay cannot be used for patients using these drugs. 05/18/2024 8:57 AM EST 05/18/2024 8:57 AM EST Generic External Data Provider LAB BLOOD ORDERAB LES Final Result Performing Organization Address [facility] de Phone Number [facility] [address] [place] [phone] * (ABNORMAL) Vitamin D, 25-Hydroxy, Total, Immunoassay (05/18/2024 8:57 AM EST) Vitamin D 25-OH Total 20.4(L) >30 ng/mL [facility] Comment:Health Based Referen ce Values*< 20 ng/mL Uzcwnzylh52-30 ng/mL Insufficient> 30 ng/mL Sufficient*Mavis CANTRELL. N Engl J Med. 2007;357:266-280Care must be taken in interpreting Vitamin D results fromdifferent laboratories and methodologies. Published datademonstrated that results from patients undergoinghemodialysis may show a negative bias when tested withvarious automated 25-OH vitamin D assays when compared toLC-MS/MS.When testing samples from patients whose predominant form ofVitamin D is Vitamin D2, such as patients receiving VitaminD2 supplementation, results that are subtherapeutic shouldbe confirmed with another method such as LC-MS/MS. 05/18/2024 8:57 AM EST 05/18/2024 8:57 AM EST Generic External Data Provider LAB BLOOD ORDERAB LES Final Result Performing Organization Address [facility] de Phone Number [facility] [address] [place] [phone] * (ABNORMAL) Ferritin (05/18/2024 8:57 AM EST) Ferritin 351(H) 20 - 250 ng/mL [facility] 05/18/2024 8:57 AM EST 05/18/2024 8:57 AM EST Generic External Data Provider LAB BLOOD ORDERAB LES Final Result Performing Organization Address [facility] de Phone Number [facility] [address] [place] [phone] * Magnesium (05/18/2024 8:57 AM EST) Magnesium 2.0 1.6 - 2.6 mg/dL [facility] 05/18/2024 8:57 AM EST 05/18/2024 8:57 AM EST Generic External Data Provider LAB BLOOD ORDERAB LES Final Result Performing Organization Address [facility] Phone Number [facility] [address] [place] [phone] * (ABNORMAL) Comprehensive Metabolic Panel (05/18/2024 8:57 AM EST) Sodium 140 135 - 145 mmol/L [facility] Potassium 3.6 3.3 - 5.1 mmol/L [facility] Chloride 109(H) 96 - 108 mmol/L [facility] Carbon Dioxide 24 22 - 29 mmol/L [facility] Anion Gap 11(L) 12 - 20 [facility] Urea Nitrogen (BUN) 21(H) 9 - 16 mg/dL [facility] Creatinine, Serum 0.77 0.5 - 1.4 mg/dL [facility] Estimated Glomerular Filt Rate >60 [facility] Comment:Chronic Kidney Disea se: Estimated GFR < 60 mL/min/1.13l2Kmedpg Kidney Disease: Estimated GFR < 15 mL/min/1.73m2 Glucose 85 60 - 115 mg/dL [facility] Calcium 9.4 8.4 - 10.2 mg/dL [facility] Bilirubin, Total 0.9 0.0 - 1.0 mg/dL [facility] Aspartate Amino Transferase 29 5 - 37 U/L [facility] Alanine Aminotransferase 26 0 - 40 U/L [facility] Total Protein 7.6 6.5 - 8.0 g/dL [facility] Albumin Level 4.3 3.5 - 5.0 g/dL [facility] Alkaline Phosphatase 60 39 - 117 U/L [facility] 05/18/2024 8:57 AM EST 05/18/2024 8:57 AM EST us Generic External Data Provider LAB BLOOD ORDERAB LES Final Result [facility] [address] [place], [place] [phone] * Prothrombin Time-INR (05/18/2024 8:57 AM EST) Prothrombin Time 11.1 10.9 - 12.4 SEC [facility] INTERNATIONAL NORM RATIO 1.0 0.9 - 1.1 [facility] Comment:INTERNATIONAL NORMAL IZED RATIO (INR) REFERENCE RANGES Reference RangeFor patients not on anticoagulant therapy: 0.9 - 1.1INR ranges for oral anticoagulanttherapy:For prevention and treatment of venous thrombosis and pulmonary embolism: 2.0 - 3.0For acute myocardial infarction with aspirin therapy: 2.0 - 3.0For acute myocardial infarction without aspirin therapy: 3.0 - 4.0For patients with mechanical prosthetic heart valves: 2.5 - 3.5 05/18/2024 8:57 AM EST 05/18/2024 8:57 AM EST us Generic External Data Provider LAB BLOOD ORDERAB LES Final Result [facility] [address] [place] [phone] * (ABNORMAL) CBC auto differential (05/18/2024 8:57 AM EST) White Blood Count 5.1 4.8 - 10.8 X10*3/uL [facility] Red Blood Count 4.66 4.60 - 5.80 X10*6/uL [facility] Hemoglobin 14.4 14.0 - 18.0 g/dl [facility] Hematocrit 40.4(L) 42.0 - 52.0 % [facility] Mean Corpuscular Volume 86.7 80.0 - 98.0 fL [facility] Mean Corpuscular Hemoglobin 30.9 27.0 - 33.0 pg [facility] Mean Corpuscular HGB Conc 35.6 31.0 - 36.0 g/dl [facility] Red Cell Distribution Width 13.1 11.0 - 16.0 % [facility] Platelet Count 119(L) 160 - 400 X10*3/uL [facility] Mean Platelet Volume 10.2 9.4 - 12.4 fL [facility] Neutrophils Percent Auto 44.2(L) 45 - 73 % [facility] Imm Gran Pct Auto 0.2 0.0 - 0.4 % [facility] Lymphocytes Percent Auto 31.2 20 - 40 % [facility] Monocytes Percent Auto 17.0(H) 2 - 11 % [facility] Eosinophils Percent Auto 6.8(H) 0 - 4 % [facility] Basophils Percent Auto 0.6 0 - 2 % [facility] NRBC Pct Auto 0.0 0.0 - 0.2 /100WBC [facility] Neutrophils Absolute Auto 2.3 2.0 - 8.3 x10*3/uL [facility] Imm Gran Abs Auto 0.01 0.00 - 0.03 X10*3/uL [facility] Lymphocytes Absolute Auto 1.6 1.2 - 4.9 X10*3/uL [facility] Monocytes Absolute Auto 0.9 0.1 - 1.2 X10*3/uL [facility] Eosinophils Absolute Auto 0.4 0.0 - 0.4 X10*3/uL [facility] Basophils Absolute Auto 0.0 0.0 - 0.2 X10*3/uL [facility] NRBC Abs Auto 0.000 0.0 - 0.012 X10*3/uL [facility] 05/18/2024 8:57 AM EST 05/18/2024 8:57 AM EST us Generic External Data Provider LAB BLOOD ORDERAB LES Final Result Performing Organization Address City/State/[facility] Co de Phone Number [facility] [address] [place] [phone] documented in this encounter Visit Diagnoses Not on filedocumented in this encounter Additional Health Concerns Assessment Noted Time PHQ-9 Depression Total Score: 10 023 2:09 PM EST documented as of this encounter Care Teams Motor Generator Set Operator Relationship Specialty Start Date End Date Marii Mcmillan MD [address] [place] [address] PCP - General Family Medicine 07/11/21 Evelyne Green Culinary Art TeacherHospital Scientist 12/09/23 documented as of this encounter
--- OUTSIDE RECORDS SUMMARY | 2024-05-23 14:39 | XMS_ITS | Encounter Summary ---
Author Organization [employer] Address [address] [facility] 7t [place] [address] Care Team Providers Care Director Of Campus Recreation Name Role Phone Marii Mcmillan MD Primary Care Provider [phone] Reason for Visit * Reason Onset Date Comments Med Refill 04/27/2024 Encounter Details Date Type Department Care Team (Late st Contact Info) Description 04/27/2024 Refill [facility] MEDICINE [address] [place] [address] Marii Mcmillan MD [address] [place] [address] Polyarthralgia Social History Tobacco Use Types Packs/Day [...] 5-325 MG tablet To be sent to: [facility]/pharmacy #[id number] MARY CARIAS - [address] [facility] documented in this encounter Plan of Treatment Upcoming Encounters Date Type Department Care Team (Late st Contact Info) Description 05/30/2024 2:00 PM EDT Telemedicine [facility] MED & PEDS [address] [place] [address] Leelee Castaneda, RN [address] [place] [address] documented as of this encounter Visit Diagnoses Diagnosis Polyarthralgia Pain in joint, multiple sites documented in this encounter Additional Health Concerns Assessment Noted Time PHQ-9 Depression Total Score: 10 023 2:09 PM EST documented as of this encounter Care Teams Director Of Campus Recreation Relationship Specialty Start Date End Date Marii Mcmillan MD [address] [place] [address] PCP - General Family Medicine 07/11/21 Evelyne Green Electronic Prepress OperatorAcademic Manager 12/09/23 documented as of this encounter
--- OUTSIDE RECORDS SUMMARY | 2024-05-23 14:39 | XMS_ITS | Encounter Summary ---
Author Organization [employer] Address [address] [place] [address] Care Team Providers Care Distribution Collection Operator Name Role Phone Marii Mcmillan MD Primary Care Provider [phone] Encounter Details Date Type Department Care Team (Late st Contact Info) Description 06/22/2023 Telephone [facility] MEDICINE [address] [place] [address] Marii Mcmillan MD [address] [place] [address] Social History Tobacco Use Types Packs/Day Years [...] [facility] [address] [place] [address] Leelee Castaneda, RN [address] [place] [address] documented as of this encounter Visit Diagnoses Not on filedocumented in this encounter Additional Health Concerns Assessment Noted Time PHQ-9 Depression Total Score: 10 023 2:09 PM EST documented as of this encounter Care Teams Distribution Collection Operator Relationship Specialty Start Date End Date Marii Mcmillan MD [address] [place] [address] PCP - General Family Medicine 07/11/21 Evelyne Green Starbucks ClerkBoiling Off Winder 12/09/23 documented as of this encounter
--- OUTSIDE RECORDS SUMMARY | 2024-05-23 14:39 | XMS_ITS | Encounter Summary ---
Author Organization [employer] Address [address] [place] [address] 7t [place] [address] Care Team Providers Care Environmental Health Nurse Name Role Phone Marii Mcmillan MD Primary Care Provider [phone] Reason for Referral * Imaging (STAT) - Closed Specialty Diagnoses / Procedures Referred By Contac t Referred To Contact Radiology Diagnoses Mass of right inguinal region Procedures Us Pelvis complete Gildardo Huertas MD [address] [place] [address] Phone: tel: fax: [address] Phone: tel: fax: Referral ID Status Reason Start Date Expiration Date Visits Re quested Visits Authorized [id number] Closed 09/18/2022 09/18/2023 1 1 Encounter Details Date Type Department Care Team (Late st Contact Info) Description 09/18/2022 Orders Only [facility] MED & PEDS [address] [place] [address] Gildardo Huertas MD [address] [place], [place] [phone] Mass of right inguinal region (Primary Dx) [...] Upcoming Encounters Date Type Department Care Team ([facility] st Contact Info) Description 05/30/2024 2:00 PM EDT Telemedicine [facility] MED & PEDS [address] [place] [address] Leelee Castaneda, RN [address] [place] [address] Scheduled Orders Name Type Priority Associated Diagnoses [...] EDT Narrative 09/25/2022 10:43 AM EDT ? [facility] ?[address] ?[place] [address] ? Ultrasound Report ? Signed ? Patient: Grimm,Manuel D ?MR#: [id number] ?? [id number] ? : 1960 ?Acct:[id number] ? Age/Sex: 62 / M ?ADM Date: 07/06/23 ? Loc: HO.US ? Attending Dr: Marii Mcmillan MD ? Ordering Physician: Marii Mcmillan MD ?? Date of Service: 09/18/22 ?? Procedure(s): US pelvic limited ?? Accession Number(s): [id number] ? cc: Marii Mcmillan MD ? EXAMINATION: [...] 1039 ? DD/ 1503 ? TD/TT: ? Lamination Inspector: ? Procedure Note [place], Image - 09/25/2022 [place] [address] Ultrasound Report Signed Patient: Manuel Grimm DMR#: [id number] : 1Acct:[id number] Age/Sex: 62 / MADM Date: 09/18/22 Loc: HO.US Attending Dr: Marii Mcmillan MD Ordering Physician: Marii Mcmillan MD Date of Service: 09/18/22 Procedure(s): US pelvic limited Accession Number(s): [id number] cc: Marii Mcmillan MD EXAMINATION: US RIGHT [...] in OV> 09/25/22 1039 DD/ 1503 TD/TT: Lamination Inspector: [facility] External Provider IMG US PROCEDURES Final Result documented in this encounter Visit Diagnoses Diagnosis Mass of right inguinal region- Primary documented in this encounter Additional Health Concerns Assessment Noted Time PHQ-9 Depression Total Score: 10 023 2:09 PM EST documented as of this encounter Care Teams Environmental Health Nurse Relationship Specialty Start Date End Date Marii Mcmillan MD [address] [place] [address] PCP - General Family Medicine 07/11/21 Evelyne Green Supervisor Commissary ProductionResident Care Associate 12/09/23 documented as of this encounter
--- OUTSIDE RECORDS SUMMARY | 2024-05-23 14:39 | XMS_ITS | Encounter Summary ---
Author Organization [employer] Address [address] [facility] 7t [place] [address] Care Team Providers Care Mixer Operator Vacuum Pan Salt Name Role Phone Marii Mcmillan MD Primary Care Provider [phone] Reason for Visit * Reason Onset Date Comments Appointment Request 04/22/2023 Encounter Details Date Type Department Care Team ([facility] Contact Info) Description 04/22/2023 Telephone [facility] MED & PEDS [address] [place] [address] Marii Mcmillan MD [address] [place] [address] Appointment Request Social History Tobacco Use Types [...] was scheduled for SDC apt today in [facility] but, due to car not [...] fever. Pt is offered to come to [facility] today or tomorrow morning but, Pt would rather come to [facility]. Pt is advised to call [...] (Car wont Start) Please contact pt @ [phone] documented in this encounter Plan of Treatment Upcoming Encounters Date Type Department Care Team ([facility] st Contact Info) Description 05/30/2024 2:00 PM EDT Telemedicine [facility] MED & PEDS [address] [place] [address] Leelee Castaneda, RN [address] [place] [address] documented as of this encounter Visit Diagnoses Not on filedocumented in this encounter Additional Health Concerns Assessment Noted Time PHQ-9 Depression Total Score: 10 023 2:09 PM EST documented as of this encounter Care Teams Mixer Operator Vacuum Pan Salt Relationship Specialty Start Date End Date Marii Mcmillan MD [address] [place] [address] PCP - General Family Medicine 07/11/21 Evelyne Green Registration SpecialistStaff Physical Therapist 12/09/23 documented as of this encounter
--- OUTSIDE RECORDS SUMMARY | 2024-05-23 14:39 | XMS_ITS | Encounter Summary ---
Author Organization [employer] Address [address] [facility] 7[address] [place] [address] Care Team Providers Care Contract Engineer Name Role Phone Marii Mcmillan MD Primary Care Provider Reason for Visit * Reason Comments Med Change Request Encounter Details Date Type Department Care Team (Late Contact Info) Description 05/27/2022 Refill [facility] MED & PEDS [address] [place] [address] Marii Mcmillan MD [address] [place] [address] Takes dietary supplements Social History Tobacco Use [...] Info) Description 05/30/2024 2:00 PM EDT Telemedicine [facility] MED & PEDS [address] [place] [address] Leelee Castaneda, RN [address] [place] [address] documented as of this encounter Visit Diagnoses Diagnosis Takes dietary supplements documented in this encounter Additional Health Concerns Assessment Noted Time PHQ-9 Depression Total Score: 10 023 2:09 PM EST documented as of this encounter Care Teams Contract Engineer Relationship Specialty Start Date End Date Marii Mcmillan MD [address] [place] [address] PCP - General Family Medicine 07/11/21 Evelyne Green College DirectorHoning Machine Set Up Operator Tool 12/09/23 documented as of this encounter
--- OUTSIDE RECORDS SUMMARY | 2024-05-23 14:39 | XMS_ITS | Encounter Summary ---
Author Organization [employer] Address [address] [facility] 7[address] [place] [address] Care Team Providers Care Interpreter Translator Name Role Phone Marii Mcmillan MD Primary Care Provider [phone] Reason for Visit * Reason Onset Date Comments Referral 03/12/2023 Encounter Details Date Type Department Care Team ([facility] Contact Info) Description 03/12/2023 Telephone [facility] MED & PEDS [address] [place] [address] Marii Mcmillan MD [address] [place] [address] Referral Social History Tobacco Use Types Packs/Day [...] 03/12/2023 4:18 PM EST Referral [place] [facility] [place] * Telephone Encounter - Brooke Corral - 03/12/2023 1:49 PM EST Tc from [facility] office of [facility] [place] has not received referral. documented in this encounter Plan of Treatment Upcoming Encounters Date Type Department Care Team (Late st Contact Info) Description 05/30/2024 2:00 PM EDT Telemedicine [facility] MED & PEDS [address] [place] [address] Leelee Castaneda, RN [address] [place] [address] documented as of this encounter Visit Diagnoses Not on filedocumented in this encounter Additional Health Concerns Assessment Noted Time PHQ-9 Depression Total Score: 10 023 2:09 PM EST documented as of this encounter Care Teams Interpreter Translator Relationship Specialty Start Date End Date Marii Mcmillan MD [address] [place] [address] PCP - General Family Medicine 07/11/21 Evelyne Green Flight Operations Dispatch ClerkEarly Interventionist 12/09/23 documented as of this encounter
--- OUTSIDE RECORDS SUMMARY | 2024-05-23 14:39 | XMS_ITS | Encounter Summary ---
Author Organization [employer] Address [address] [place] [address] [address] [place] [address] Care Team Providers Care Manager Of Loss Prevention Operations Name Role Phone Marii Mcmillan MD Primary Care Provider [phone] Reason for Visit * Reason Comments Med Refill Encounter Details Date Type Department Care Team (Late Contact Info) Description 04/08/2022 Refill [facility] MED & PEDS [address] [place] [address] Marii Mcmillan MD [address] [place] [address] Vitamin deficiency, unspecified Social History Tobacco Use [...] Description 05/30/2024 2:00 PM EDT Telemedicine [facility] MED & PEDS [address] [place] [address] Leelee Castaneda RN [address] [place] [address] documented as of this encounter Visit Diagnoses Diagnosis Vitamin deficiency, unspecified documented in this encounter Care Teams Manager Of Loss Prevention Operations Relationship Specialty Start Date End Date Marii Mcmillan MD [address] [place] [address] PCP - General Family Medicine 07/11/21 Evelyne Green [employer] Software DeveloperEmployee Operations Examiner 12/09/23 documented as of this encounter
--- OUTSIDE RECORDS SUMMARY | 2024-05-23 14:39 | XMS_ITS | Encounter Summary ---
Author Organization [employer] Address [address] [facility] [address] [place] [address] Care Team Providers Care Route Service Representative Name Role Phone Marii Mcmillan MD Primary Care Provider [phone] Reason for Visit * Reason Onset Date Comments CHART PREP 01/26/2024 Encounter Details Date Type Department Care Team ([facility] Contact Info) Description 01/26/2024 Telephone [facility] MED & PEDS [address] [place] [address] Marii Mcmillan MD [address] [place] [address] CHART PREP Social History Tobacco Use Types [...] Info) Description 05/30/2024 2:00 PM EDT Telemedicine [facility] MED & PEDS [address] [place] [address] Leelee Castaneda, RN [address] [place] [address] documented as of this encounter Visit Diagnoses Diagnosis Polyarthralgia Pain in joint, multiple sites documented in this encounter Additional Health Concerns Assessment Noted Time PHQ-9 Depression Total Score: 10 023 2:09 PM EST documented as of this encounter Care Teams Route Service Representative Relationship Specialty Start Date End Date Marii Mcmillan MD [address] [place] [address] PCP - General Family Medicine 07/11/21 Evelyne Green Exchange EngineerProbate Lawyer 12/09/23 documented as of this encounter
--- OUTSIDE RECORDS SUMMARY | 2024-05-23 14:39 | XMS_ITS | Encounter Summary ---
Author Organization [employer] Address [address] [facility] 7[address] [place] [address] Care Team Providers Care Capping Machine Operator Name Role Phone Marii Mcmillan MD Primary Care Provider [phone] Reason for Visit * Reason Onset Date Comments Med Refill 01/28/2024 Encounter Details Date Type Department Care Team ([facility] st Contact Info) Description 01/28/2024 Telephone [facility] [address] [place] [address] Marii Mcmillan MD [address] [place] [address] Med Refill Social History Tobacco Use Types [...] 5-325 MG tablet To be sent to: [facility]/pharmacy #[id number] [place] - [address] [place] [address] documented in this encounter Plan of Treatment Upcoming Encounters Date Type Department Care Team (Late st Contact Info) Description 05/30/2024 2:00 PM EDT Telemedicine [facility] MED & PEDS [address] [place] [address] Leelee Castaneda, RN [address] [place] [address] documented as of this encounter Visit Diagnoses Not on filedocumented in this encounter Additional Health Concerns Assessment Noted Time PHQ-9 Depression Total Score: 10 023 2:09 PM EST documented as of this encounter Care Teams Capping Machine Operator Relationship Specialty Start Date End Date Marii Mcmillan MD [address] [place] [address] PCP - General Family Medicine 07/11/21 Evelyne Green Senior Regulatory Affairs SpecialistDispensing Operator 12/09/23 documented as of this encounter
--- OUTSIDE RECORDS SUMMARY | 2024-05-23 14:39 | XMS_ITS | Clinical Summary ---
Author Organization [id number] Address [address] [facility] 7t [place] [address] Care Team Providers Care Medicinal Chemist Name Role Phone Marii Mcmillan MD Primary Care Provider [phone] Allergies Active Allergy Reactions Criticality Noted Date [...] Assessment & Plan (07/07/2023 3:56 PM EDT): body specialist will further monitor hip pain. Assessment & Plan (04/21/2023 1:34 PM EST): Patient with Hx of Hip Arthritis stated that medications are not improving hip pain. Therefore, will discontinue prior medications, and will be prescribing Oxycodone. Recommended to follow up with an in-person visit. Assessment & Plan (02/26/2023 3:51 PM EST): [facility] compplaints of R Hip Pain will [...] Encounters Date Type Department Care Team Description 05/18/2024 Orders Only GENERIC EXTERNAL DATA DEPARTMENT Provider, Generic External Data 05/09/2024 Orders Only GENERIC EXTERNAL DATA DEPARTMENT Provider, Generic External Data 04/29/2024 Orders Only [facility] [address] [place] [address] Star Dick MD Polyarthralgia 04/27/2024 Refill [facility] [address] [place] [address] Marii Mcmillan MD Polyarthralgia 04/21/2024 Telephone [facility] MED [facility] PEDS [address] [place] [address] Gildardo Huertas MD 04/18/2024 2:00 PM EST Office Visit [facility] [address] [place] [address] Gildardo Huertas MD Pre-op evaluation (Primary Dx); LBBB (left bundle branch block) 04/18/2024 Travel 03/29/2024 Refill [facility] [address] [place] [address] Marii Mcmillan MD Polyarthralgia 03/18/2024 Telephone [facility] [address] [place] [address] Marii Mcimllan MD call back/referral 03/10/2024 2:00 PM EST Clinical Support [facility] [address] [place] [address] Leelee Castaneda RN Right hip pain 03/10/2024 Travel 03/03/2024 Telephone [facility] [address] [place] [address] Marii Mcmillan MD Pre-op Exam 02/29/2024 Refill [facility] [address] [place] [address] Marii Mcmillan MD Polyarthralgia from Last 3 [...] your housing situation today? I have david derw 01/16/[address] you li [...] Upcoming Encounters Date Type Department Care Team ([facility] st Contact Info) Description 05/30/2024 2:00 PM EDT Telemedicine [facility] MED [facility] PEDS [address] [place] [address] Leelee Castaneda, RN [address] [place] [address] Health Maintenance Due Date Last Done Comments [...] K1 Routine 05/18/2024 8:57 AM EST VITAMIN B6 Routine 05/18/2024 8:57 AM EST VITAMIN E (TOCOPHEROL) Routine 8:57 AM EST VITAMIN A Routine 05/18/2024 8:57 AM EST VITAMIN B12/FOLATE, SERUM PANEL Routine 05/18/2024 8:57 AM EST VITAMIN D,25-OH,TOTAL,IA Routine 05/18/2024 8:57 AM EST FERRITIN Routine 05/18/2024 8:57 AM EST MAGNESIUM Routine 05/18/2024 8:57 AM EST COMPREHENSIVE METABOLIC PANEL Routine 05/18/2024 8:57 AM EST PROTHROMBIN TIME-INR Routine 05/18/2024 8:57 AM EST CBC WITH AUTO DIFFERENTIAL Routine 05/18/2024 8:57 AM EST MRSA NASAL SCREEN Routine 05/09/2024 1:0 0 [...] Recently Relevant to Health Maintenance Results * (ABNORMAL) Vitamin K1 (05/18/2024 8:57 AM EST) Vitamin K1 1813(A) 130 - 1500 pg/mL [facility] Comment:This test was ramon chowdhury and its analytical performancecharacteristics have been determined by [employer] [place], [place]. It hasnot been cleared or approved by the U.S. Food and DrugAdministration. This assay has been validated pursuantto the CLIA regulations and is used for clinicalpurposes.THIS TEST WAS PERFORMED AT:[id number] [place] [address]HVMAUEF W. MASON,MD,PHD 05/18/2024 8:57 AM EST 05/18/2024 8:57 AM EST Generic External Data Provider LAB BLOOD ORDERAB LES Final Result Performing Organization Address [facility] Co de Phone Number [facility] [address] [place] [phone] * (ABNORMAL) Vitamin D, 25-Hydroxy, Total, Immunoassay (05/18/2024 8:57 AM EST) Vitamin D 25-OH Total 20.4(L) >30 ng/mL [facility] Comment:Health Based Referen ce Values*< 20 ng/mL Algkfocrr48-03 ng/mL Insufficient> 30 ng/mL Sufficient*Mavis CANTRELL. N [...] ORDERAB LES Final Result Performing Organization Address [facility]/ZIP Co de Phone Number [facility] [address] [place] [phone] * Vitamin B12 (Cobalamin) and Folate Panel, Serum (05/18/2024 8:57 AM EST) Pathologist [facility] Vitamin B12 617 200 - 900 pg/mL [facility] Comment:NORMAL 200-900 PG/ML INDETERMINATE 160-199 PG/ML DEFICIENT < 160 PG/ML Folate 11.8 > or = 4.0 ng/mL [facility] Comment:Reference Values:> o r = 4.0 ng/mL< 4.0 ng/mL suggests folate deficiency Methotrexate, aminopterin and folinic acid(leucovorin) are chemotherapeutic agents whose molecularstructures are similar to folate; therefore, the Architectfolate assay cannot be used for patients using these drugs. 05/18/2024 8:57 AM EST 05/18/2024 8:57 AM EST us Generic External Data Provider LAB BLOOD ORDERAB LES Final Result [facility] [address] [place] [phone] * (ABNORMAL) CBC auto differential (05/18/2024 8:57 AM EST) Only the most recent of2 resultswithin the time period is included. [facility] White Blood Count 5.1 4.8 - 10.8 X10*3/uL [facility] Red Blood Count 4.66 4.60 - 5.80 X10*6/uL [facility] Hemoglobin 14.4 14.0 - 18.0 g/dl [facility] Hematocrit 40.4(L) 42.0 - 52.0 % [facility] Mean Corpuscular Volume 86.7 80.0 - 98.0 fL [facility] Mean Corpuscular Hemoglobin 30.9 27.0 - 33.0 pg [facility] Mean Corpuscular HGB Conc 35.6 31.0 - 36.0 g/dl [facility] Red Cell Distribution Width 13.1 11.0 - 16.0 % [facility] Platelet Count 119(L) 160 - 400 X10*3/uL [facility] Mean Platelet Volume 10.2 9.4 - 12.4 fL [facility] Neutrophils Percent Auto 44.2(L) 45 - 73 % [facility] Imm Gran Pct Auto 0.2 0.0 - 0.4 % [facility] Lymphocytes Percent Auto 31.2 20 - 40 % [facility] Monocytes Percent Auto 17.0(H) 2 - 11 % [facility] Eosinophils Percent Auto 6.8(H) 0 - 4 % [facility] Basophils Percent Auto 0.6 0 - 2 % [facility] NRBC Pct Auto 0.0 0.0 - 0.2 /100WBC [facility] Neutrophils Absolute Auto 2.3 2.0 - 8.3 x10*3/uL [facility] Imm Gran Abs Auto 0.01 0.00 - 0.03 X10*3/uL [facility] Lymphocytes Absolute Auto 1.6 1.2 - 4.9 X10*3/uL [facility] Monocytes Absolute Auto 0.9 0.1 - 1.2 X10*3/uL [facility] Eosinophils Absolute Auto 0.4 0.0 - 0.4 X10*3/uL [facility] Basophils Absolute Auto 0.0 0.0 - 0.2 X10*3/uL [facility] NRBC Abs Auto 0.000 0.0 - 0.012 X10*3/uL [facility] 05/18/2024 8:57 AM EST 05/18/2024 8:57 AM EST us Generic External Data Provider LAB BLOOD ORDERAB LES Final Result [facility] [address] [place] [phone] * Prothrombin Time-INR (05/18/2024 8:57 AM EST) Only the most recent of2 resultswithin the time period is included. Prothrombin Time 11.1 10.9 - 12.4 SEC [facility] INTERNATIONAL NORM RATIO 1.0 0.9 - 1.1 [facility] Comment:INTERNATIONAL NORMAL IZED RATIO (INR) [...] ORDERAB LES Final Result Performing Organization Address City/[facility] de Phone Number [facility] [address] [place] [phone] * Vitamin E (Tocopherol) (05/18/2024 8:57 AM EST) Vitamin E, Alpha-Tocopherol 7.4 5.7 - 19.9 mg/L [facility] Comment:Levels of alpha-toco pherol <5 mg/L are consistentwith Vitamin E deficiency in adults. Vitamin E, Nxds-Riipq-Htjgyvywuk <1.0 <=4.3 mg/L [facility] Comment:Vitamin supplementat ion within 24 hours prior toblood draw may affect the accuracy of the results.This test was developed and its analytical performancecharacteristics have been determined by [employer] [place], [place]. It hasnot been cleared or approved by the U.S. Food and DrugAdministration. This assay has been validated pursuantto the CLIA regulations and is used for clinicalpurposes.THIS TEST WAS PERFORMED AT:[id number] [place] [address]CVKPWBNLON ROCA MD,PHD 05/18/2024 8:57 AM EST 05/18/2024 8:57 AM EST us Generic External Data Provider LAB BLOOD ORDERAB LES Final Result Performing Organization Address City/State/[facility] Co de Phone Number [facility] [address] [place] [phone] * Magnesium (05/18/2024 8:57 AM EST) [facility] Magnesium 2.0 1.6 - 2.6 mg/dL [facility] 05/18/2024 8:57 AM EST 05/18/2024 8:57 AM EST Generic External Data Provider LAB BLOOD ORDERAB LES Final Result Performing Organization Address [facility] Co de Phone Number [facility] [address] [place] [phone] * (ABNORMAL) Ferritin (05/18/2024 8:57 AM EST) [facility] Ferritin 351(H) 20 - 250 ng/mL [facility] 05/18/2024 8:57 AM EST 05/18/2024 8:57 AM EST Generic External Data Provider LAB BLOOD ORDERAB LES Final Result Performing Organization Address [facility] de Phone Number [facility] [address] [place] [phone] * (ABNORMAL) Comprehensive Metabolic Panel (05/18/2024 8:57 AM EST) Only the most recent of2 resultswithin the time period is included. [facility] Sodium 140 135 - 145 mmol/L [facility] Potassium 3.6 3.3 - 5.1 mmol/L [facility] Chloride 109(H) 96 - 108 mmol/L [facility] Carbon Dioxide 24 22 - 29 mmol/L [facility] Anion Gap 11(L) 12 - 20 [facility] Urea Nitrogen (BUN) 21(H) 9 - 16 mg/dL [facility] Creatinine, Serum 0.77 0.5 - 1.4 mg/dL [facility] Estimated Glomerular Filt Rate >60 [facility] Comment:Chronic Kidney Disea se: Estimated GFR < 60 mL/min/1.84s3Mgmhmt Kidney Disease: Estimated GFR < 15 mL/min/1.73m2 Glucose 85 60 - 115 mg/dL [facility] Calcium 9.4 8.4 - 10.2 mg/dL [facility] Bilirubin, Total 0.9 0.0 - 1.0 mg/dL [facility] Aspartate Amino Transferase 29 5 - 37 U/L [facility] Alanine Aminotransferase 26 0 - 40 U/L [facility] Total Protein 7.6 6.5 - 8.0 g/dL [facility] Albumin Level 4.3 3.5 - 5.0 g/dL [facility] Alkaline Phosphatase 60 39 - 117 U/L [facility] 05/18/2024 8:57 AM EST 05/18/2024 8:57 AM EST Generic External Data Provider LAB BLOOD ORDERAB LES Final Result Performing Organization Address [facility] Co de Phone Number [facility] [address] [place] [phone] * MRSA Nasal Screen (05/09/2024 1:00 PM EST) MRSA Nasal PCR NEGATIVE Negative [facility] SA Nasal PCR NEGATIVE Negative [facility] MRSA Interpretation SEE NOTE [facility] Comment:MRSA target DNA not detected; SA target DNA not detected.A MRSA NEGATIVE, SA NEGATIVE test result does not precludeMRSA or SA nasal colonization. 05/09/2024 1:00 PM EST 05/09/2024 1:18 PM EST us Generic External Data Provider LAB MICROBIOLOGY - GENERAL ORDERABLES Final Result Performing Organization Address [facility]/ZIP Co de Phone Number [facility] [address] [place] [address] [phone] * ECG 12 lead (04/18/2024 4:12 PM EST) Narrative Gildardo Huertas MD - 04/18/2024 4:12 PM EST HR: 65 bpm. [place] 18. ??LBBB. ??High lateral and lateral repolarization disturbance. ??Normal sinus rhythm Gildardo Huertas MD ECG ORDERABLES Final Resul t * TSH W/Reflex to FT4 (04/18/2024 3:15 PM EST) TSH reflex Free T4 2.40 0.32 - 4.0 uIU/mL [facility] Blood Venous blood specimen / Unknown 04/18/2024 3:15 PM EST 04/18/2024 5:39 PM EST Gildardo Huertas MD LAB BLOOD ORDERABLES Final Result [facility] [address] [place] [phone] * HIV-1/2 Antigen and Antibodies, Fourth Generation, with Reflexes (04/18/2024 3:15 PM EST) HIV AB/AG Nonreactive Nonreactive [facility] Comment:HIV-1 p24 Ag and/or HIV-1/HIV-2 Ab not detected.A test result that is nonreactive does not exclude thepossibility of exposure to or infection with HIV-1 and/orHIV-2. Nonreactive results in this assay for individualswith prior exposure to HIV-1 and/or HIV-2 may be due toantigen and antibody levels that are below the limit ofdetection of this assay.The [email or web address] HIV Ag/Ab Combo assay result andsupplemental assay results should be interpreted inconjunction with the patient's clinical presentation,history and other laboratory results. If the results areinconsistent with clinical evidence, additional testing issuggested to confirm the result. Blood Venous blood specimen / Unknown 04/18/2024 3:15 PM EST 04/18/2024 5:39 PM EST us Gildardo Huertas MD LAB BLOOD ORDERABLES Final Result Performing Organization Address [facility]/ZIP Co de Phone Number [facility] [address] [place] [phone] * Partial Thromboplastin Time, Activated (APTT) (04/18/2024 3:15 PM EST) Partial Thromboplastin Time 34.9 26.0 - 36.8 SEC [facility] Comment:For information rega rding the monitoring of direct thrombininhibitors, please refer to Pharmacy. Blood Venous blood specimen / Unknown 04/18/2024 3:15 PM EST 04/18/2024 5:39 PM EST us Gildardo Huertas MD LAB BLOOD ORDERABLES Final Result Performing Organization Address [facility] Co de Phone Number [facility] [address] [place] [address] [phone] * Prealbumin (04/18/2024 3:15 PM EST) Prealbumin 22.0 20 - 40 mg/dL [facility] Blood Venous blood specimen / Unknown 04/18/2024 3:15 PM EST 04/18/2024 5:39 PM EST us Gildardo Huertas MD LAB BLOOD ORDERABLES Final Result Performing Organization Address City/[facility] Co de Phone Number [facility] [address] [place] [phone] * POCT MITCHELL-14 Urine Drug Screen (03/10/2024 2:25 PM EST) THC Positive Oxycodone Screen, Urine Positive Urine Urine specimen obtained by clean catch procedure / Unknown 03/10/2024 2:25 PM EST Narrative Leelee Castaneda RN - 03/10/2024 2:25 PM EST Lot# [id number] Exp: 02-19-25 us Marii Mcmillan MD POINT [...] ?? Fortunato GIBSON et al. ISHAN. 2013;310(19): 6638-2409 ?? (http://education.Launchr/faq/XRF019) Non-HDL Cholesterol 124 <130 mg/dL (calc) [facility] Comment: For patients with diabetes plus 1 major ASCVD risk ?? factor, treating to a non-HDL-C goal of <100 mg/dL ?? (LDL-C of <70 mg/dL) is considered a therapeutic ?? option. Triglycerides 102 <150 mg/dL [facility] 07/26/2021 10:5 8 AM EDT us Marii Mcmillan MD LAB BLOOD ORDERABLES Final Re sult [facility] [address] from Last 3 Months or Most Recently Relevant to Health Maintenance Insurance [employer] C3 Care Teams Medicinal Chemist Relationship Specialty Start Date End Date Marii Mcmillan MD [address] [place] [phone] PCP - General Family Medicine 07/11/21 Evelyne Green Telephone SolicitorPilot 12/09/23
--- OUTSIDE RECORDS SUMMARY | 2024-05-23 14:39 | XMS_ITS | Encounter Summary ---
Author Organization [employer] Address [address] [facility] [address] [place] [address] Care Team Providers Care Coil Winder Hand Name Role Phone Marii Mcmillan MD Primary Care Provider [phone] Encounter Details Date Type Department Care Team ([facility] st Contact Info) Description 05/09/2024 Orders [...] [facility] [address] [place] [address] Leelee Castaneda, RN [address] [place] [address] documented as of this encounter Procedures Procedure Name Priority Date/Time Associated Diagnosis Comments MRSA NASAL SCREEN Routine 05/09/2024 1:0 0 PM EST documented in this encounter Results * MRSA Nasal Screen (05/09/2024 1:00 PM EST) MRSA Nasal PCR NEGATIVE Negative [facility] SA Nasal PCR NEGATIVE Negative [facility] MRSA Interpretation SEE NOTE [facility] Comment:MRSA target DNA not detected; SA target DNA not detected.A MRSA NEGATIVE, SA NEGATIVE test result does not precludeMRSA or SA nasal colonization. 05/09/2024 1:00 PM EST 05/09/2024 1:18 PM EST us Generic External Data Provider LAB MICROBIOLOGY - GENERAL ORDERABLES Final Result [facility] [address] [place] [phone] documented in this encounter Visit Diagnoses Not on filedocumented in this encounter Additional Health Concerns Assessment Noted Time PHQ-9 Depression Total Score: 10 023 2:09 PM EST documented as of this encounter Care Teams Coil Winder Hand Relationship Specialty Start Date End Date Marii Mcmillan MD [address] [place] [address] PCP - General Family Medicine 07/11/21 Evelyne Green Service ElectricianPhysician Scribe 12/09/23 documented as of this encounter
--- OUTSIDE RECORDS SUMMARY | 2024-05-23 14:39 | XMS_ITS | Encounter Summary ---
Author Organization [employer] Address [address] [facility] [address]t [place] [address] Care Team Providers Care Superintendent Logging Name Role Phone Marii Mcmillan MD Primary Care Provider [phone] Reason for Visit * Reason Onset Date Comments Referral 05/20/2022 Encounter Details Date Type Department Care Team ([facility] st Contact Info) Description 05/20/2022 Telephone [facility] [address] [place] [address] Marii Mcmillan MD [address] [place] [address] Referral Social History Tobacco Use Types Packs/Day [...] made on 02/04/2022. Please contact pt at [phone] documented in this encounter Plan of Treatment Upcoming Encounters Date Type Department Care Team ([facility] st Contact Info) Description 05/30/2024 2:00 PM EDT Telemedicine [facility] MED & PEDS [address] [place] [address] Leelee Castaneda, RN [address] [place] [address] documented as of this encounter Visit Diagnoses Not on filedocumented in this encounter Care Teams Superintendent Logging Relationship Specialty Start Date End Date Marii Mcmillan MD [address] [place] [address] PCP - General Family Medicine 07/11/21 Evelyne Green Clerical Order FillerAssociate Professor Of Education 12/09/23 documented as of this encounter
--- OUTSIDE RECORDS SUMMARY | 2024-05-23 14:39 | XMS_ITS | Encounter Summary ---
Author Organization [employer] Address [address] [facility] [address]t [place] [address] Care Team Providers Care Psychologist Engineering Name Role Phone Marii Mcmillan MD Primary Care Provider [phone] Reason for Visit * Reason Onset Date Comments Med Change Request 11/04/2023 Encounter Details Date Type Department Care Team ([facility] Contact Info) Description 11/04/2023 Telephone [facility] [address] [place] [address] Marii Mcmillan MD [address] [place] [address] Med Change Request Social History Tobacco Use [...] Info) Description 05/30/2024 2:00 PM EDT Telemedicine [facility]EDS [address] [place] [address] Leelee Castaneda, RN [address] [place] [address] documented as of this encounter Visit Diagnoses Not on filedocumented in this encounter Additional Health Concerns Assessment Noted Time PHQ-9 Depression Total Score: 10 023 2:09 PM EST documented as of this encounter Care Teams Psychologist Engineering Relationship Specialty Start Date End Date Marii Mcmillan MD [address] [place] [address] PCP - General Family Medicine 07/11/21 Evelyne Green Digital Computer OperatorHopper Attendant 12/09/23 documented as of this encounter
== END 2024-05-23 13:51 | disposition home or self-care (01) ==
PROVIDERS: PCP Family Medicine; Visit Provider Internal Medicine
DX: Z01.810 Encounter for preprocedural cardiovascular examination (principal); I44.7 Left bundle-branch block, unspecified; R07.2 Precordial pain
CPT/HCPCS: 93010; 99204

== ENCOUNTER → 2024-05-23 13:03 | Outpatient (BNVA) | payer MEDICAID, SELFPAY | PROVIDERS: PCP Family Medicine; Visit Provider Internal Medicine | DX: Z01.810 Encounter for preprocedural cardiovascular examination (principal); I44.7 Left bundle-branch block, unspecified; R07.2 Precordial pain; I20.9 Angina pectoris, unspecified | CPT/HCPCS: 93005; 99202 ==

== ENCOUNTER 2024-05-23 13:49 | Outpatient (REF) | payer MEDICAID, SELFPAY ==
--- OUTSIDE RECORDS SUMMARY | 2024-05-23 15:42 | XMS_ITS | Encounter Summary ---
Author Organization [employer] Address [address] [facility] [address]t [place] [address] Care Team Providers Care Software Quality Assurance Analyst Name Role Phone Marii Mcmillan MD Primary Care Provider [phone] Encounter Details Date Type Department Care Team (Late st Contact Info) Description 04/29/2024 Orders Only [facility] MED [facility]EDS [address] [place] [address] Star Dick MD [address] [place] [address] Polyarthralgia Social History Tobacco Use Types Packs/Day [...] 2:00 PM EDT Telemedicine [facility] & PEDS [address] [place] [address] Leelee Castaneda, RN [address] [place] [address] documented as of this encounter Visit Diagnoses Diagnosis Polyarthralgia Pain in joint, multiple sites documented in this encounter Additional Health Concerns Assessment Noted Time PHQ-9 Depression Total Score: 10 023 2:09 PM EST documented as of this encounter Care Teams Software Quality Assurance Analyst Relationship Specialty Start Date End Date Marii Mcmillan MD [address] [place] [address] PCP - General Family Medicine 07/11/21 Evelyne Green Research/Program DirectorPowder Carrier 12/09/23 documented as of this encounter
--- OUTSIDE RECORDS SUMMARY | 2024-05-23 15:42 | XMS_ITS | Encounter Summary ---
Author Organization [employer] Address 75 [facility] 7t [place] [address] Care Team Providers Care Security Intern Name Role Phone Marii Mcmillan MD Primary Care Provider [phone] Reason for Visit * Reason Onset Date Comments Med Change Request 11/04/2023 Encounter Details Date Type Department Care Team ([facility] Contact Info) Description 11/04/2023 Telephone [facility] MEDICINE [address] [place] [address] Marii Mcmillan MD 505 [place] [address] Med Change Request Social History Tobacco Use [...] Info) Description 05/30/2024 2:00 PM EDT Telemedicine [facility] CHC MED & PEDS 505 [place] [address] Leelee Castaneda, RN 505 [place] [address] documented as of this encounter Visit Diagnoses Not on filedocumented in this encounter Additional Health Concerns Assessment Noted Time PHQ-9 Depression Total Score: 10 023 2:09 PM EST documented as of this encounter Care Teams Security Intern Relationship Specialty Start Date End Date Marii Mcmillan MD 230 [place] [address] PCP - General Family Medicine 07/11/21 Evelyne Green Harp RepairerMorgue Librarian 12/09/23 documented as of this encounter
--- OUTSIDE RECORDS SUMMARY | 2024-05-23 15:42 | XMS_ITS | Encounter Summary ---
Author Organization [employer] Address 75 [facility] 7t [place] [address] Care Team Providers Care Director Investor Relations Name Role Phone Marii Mcmillan MD Primary Care Provider [phone] Encounter Details Date Type Department Care Team [...] Description 05/30/2024 2:00 PM EDT Telemedicine [facility] MED & PEDS 505 [place] [address] Leelee Castaneda, RN [address] [place] [address] Pending Results Name Type Priority Associated Diagnoses [...] Vitamin K1 1813(A) 130 - 1500 pg/mL [facility] Comment:This test was develo ped and its analytical performancecharacteristics have been determined by [email or web address] It hasnot been cleared or approved by the U.S. Food and DrugAdministration. This assay has been validated pursuantto the CLIA regulations and is used for clinicalpurposes.THIS TEST WAS PERFORMED AT:[employer] [id number] [place] [address]DETLQRULON ROCA MD,PHD 05/18/2024 8:57 AM EST 05/18/2024 8:57 AM EST us Generic External Data Provider LAB BLOOD ORDERAB LES Final Result [facility] [address] [place] [address] [phone] * Vitamin E (Tocopherol) (05/18/2024 8:57 AM EST) Vitamin E, Alpha-Tocopherol 7.4 5.7 - 19.9 mg/L [facility] Comment:Levels of alpha-toco pherol <5 mg/L are consistentwith Vitamin E deficiency in adults. Vitamin E, Hiwd-Pnlqa-Lsazrglhaz <1.0 <=4.3 mg/L [facility] Comment:Vitamin supplementat ion within 24 hours prior toblood draw may affect the accuracy of the results.This test was developed and its analytical performancecharacteristics have been determined by [email or web address] It hasnot been cleared or approved by the U.S. Food and DrugAdministration. This assay has been validated pursuantto the CLIA regulations and is used for clinicalpurposes.THIS TEST WAS PERFORMED AT:[id number] [place] [address]OKIRYMKLON ROCA MD,PHD 05/18/2024 8:57 AM EST 05/18/2024 8:57 AM EST Generic External Data Provider LAB BLOOD ORDERAB LES Final Result Performing Organization Address [facility] Co de Phone Number [facility] [address] [place] [phone] * Vitamin B12 (Cobalamin) and Folate Panel, Serum (05/18/2024 8:57 AM EST) Vitamin B12 617 200 - 900 pg/mL [facility] Comment:NORMAL 200-900 PG/ML INDETERMINATE 160-199 PG/ML DEFICIENT < 160 PG/ML Folate 11.8 > or = 4.0 ng/mL [facility] Comment:Reference Values:> o r [...] Organization Address [facility] de Phone Number [facility] [address] [place] [address] [phone] * (ABNORMAL) Vitamin D, 25-Hydroxy, Total, Immunoassay (05/18/2024 8:57 AM EST) Vitamin D 25-OH Total 20.4(L) >30 ng/mL [facility] Comment:Health Based Referen ce Values*< 20 ng/mL Icdmnfrvb52-27 ng/mL Insufficient> 30 ng/mL Sufficient*Mavis CANTRELL. N [...] ORDERAB LES Final Result Performing Organization Address [facility] de Phone Number [facility] [address] [place] [phone] * (ABNORMAL) Ferritin (05/18/2024 8:57 AM EST) Ferritin 351(H) 20 - 250 ng/mL [facility] 05/18/2024 8:57 AM EST 05/18/2024 8:57 AM EST Generic External Data Provider LAB BLOOD ORDERAB LES Final Result Performing Organization Address [facility] de Phone Number [facility] [address] [place] [address] [phone] * Magnesium (05/18/2024 8:57 AM EST) Magnesium 2.0 1.6 - 2.6 mg/dL [facility] 05/18/2024 8:57 AM EST 05/18/2024 8:57 AM EST Generic External Data Provider LAB BLOOD ORDERAB LES Final Result Performing Organization Address [facility] Phone Number [facility] [address] [place] [address] [phone] * (ABNORMAL) Comprehensive Metabolic Panel (05/18/2024 8:57 AM EST) Sodium 140 135 - 145 mmol/L [facility] Potassium 3.6 3.3 - 5.1 mmol/L [facility] Chloride 109(H) 96 - 108 mmol/L [facility] Carbon Dioxide 24 22 - 29 mmol/L [facility] Anion Gap 11(L) 12 - 20 [facility] Urea Nitrogen (BUN) 21(H) 9 - 16 mg/dL [facility] Creatinine, Serum 0.77 0.5 - 1.4 mg/dL [facility] Estimated Glomerular Filt Rate >60 [facility] Comment:Chronic Kidney Disea se: Estimated GFR < 60 mL/min/1.79o3Dljzws Kidney Disease: Estimated GFR < 15 mL/min/1.73m2 Glucose 85 60 - 115 mg/dL [facility] Calcium 9.4 8.4 - 10.2 mg/dL [facility] Bilirubin, Total 0.9 0.0 - 1.0 mg/dL [facility] Aspartate Amino Transferase 29 5 - 37 U/L [facility] Alanine Aminotransferase 26 0 - 40 U/L [facility] Total Protein 7.6 6.5 - 8.0 g/dL [facility] Albumin Level 4.3 3.5 - 5.0 g/dL [facility] Alkaline Phosphatase 60 39 - 117 U/L [facility] 05/18/2024 8:57 AM EST 05/18/2024 8:57 AM EST us Generic External Data Provider LAB BLOOD ORDERAB LES Final Result [facility] [address] [place], [place] [phone] * Prothrombin Time-INR (05/18/2024 8:57 AM EST) Prothrombin Time 11.1 10.9 - 12.4 SEC [facility] INTERNATIONAL NORM RATIO 1.0 0.9 - 1.1 [facility] Comment:INTERNATIONAL NORMAL IZED RATIO [...] Provider LAB BLOOD ORDERAB LES Final Result [facility] [address] [place] [phone] * (ABNORMAL) CBC auto differential (05/18/2024 8:57 AM EST) White Blood Count 5.1 4.8 - 10.8 X10*3/uL [facility] Red Blood Count 4.66 4.60 - 5.80 X10*6/uL [facility] Hemoglobin 14.4 14.0 - 18.0 g/dl [facility] Hematocrit 40.4(L) 42.0 - 52.0 % [facility] Mean Corpuscular Volume 86.7 80.0 - 98.0 fL [facility] Mean Corpuscular Hemoglobin 30.9 27.0 - 33.0 pg [facility] Mean Corpuscular HGB Conc 35.6 31.0 - 36.0 g/dl [facility] Red Cell Distribution Width 13.1 11.0 - 16.0 % [facility] Platelet Count 119(L) 160 - 400 X10*3/uL [facility] Mean Platelet Volume 10.2 9.4 - 12.4 fL [facility] Neutrophils Percent Auto 44.2(L) 45 - 73 % [facility] Imm Gran Pct Auto 0.2 0.0 - 0.4 % [facility] Lymphocytes Percent Auto 31.2 20 - 40 % [facility] Monocytes Percent Auto 17.0(H) 2 - 11 % [facility] Eosinophils Percent Auto 6.8(H) 0 - 4 % [facility] Basophils Percent Auto 0.6 0 - 2 % [facility] NRBC Pct Auto 0.0 0.0 - 0.2 /100WBC [facility] Neutrophils Absolute Auto 2.3 2.0 - 8.3 x10*3/uL [facility] Imm Gran Abs Auto 0.01 0.00 - 0.03 X10*3/uL [facility] Lymphocytes Absolute Auto 1.6 1.2 - 4.9 X10*3/uL [facility] Monocytes Absolute Auto 0.9 0.1 - 1.2 X10*3/uL [facility] Eosinophils Absolute Auto 0.4 0.0 - 0.4 X10*3/uL [facility] Basophils Absolute Auto 0.0 0.0 - 0.2 X10*3/uL [facility] NRBC Abs Auto 0.000 0.0 - 0.012 X10*3/uL [facility] 05/18/2024 8:57 AM EST 05/18/2024 8:57 AM EST us Generic External Data Provider LAB BLOOD ORDERAB LES Final Result Performing Organization Address City/State/[facility] Co de Phone Number [facility] [address] [place] [phone] documented in this encounter Visit Diagnoses Not on filedocumented in this encounter Additional Health Concerns Assessment Noted Time PHQ-9 Depression Total Score: 10 023 2:09 PM EST documented as of this encounter Care Teams Director Investor Relations Relationship Specialty Start Date End Date Marii Mcmillan MD [address] [place] [address] PCP - General Family Medicine 07/11/21 Evelyne Green Art EditorLumber Tailer 12/09/23 documented as of this encounter
--- OUTSIDE RECORDS SUMMARY | 2024-05-23 15:42 | XMS_ITS | Encounter Summary ---
Author Organization [employer] Address [address] [facility] 7t [place] [address] Care Team Providers Care Continuous Process Coffee Roaster Name Role Phone Marii Mcmillan MD Primary Care Provider [phone] Reason for Visit * Reason Comments Med Change Request Encounter Details Date Type Department Care Team (Late Contact Info) Description 05/27/2022 Refill [facility] CHC MED & PEDS [address] [place] [address] Marii Mcmillan MD [address] [place] [address] Takes dietary supplements Social History Tobacco Use [...] [facility] CH[facility] MED & PEDS [address] [place] [address] Leelee Castaneda, RN [address] [place] [address] documented as of this encounter Visit Diagnoses Diagnosis Takes dietary supplements documented in this encounter Additional Health Concerns Assessment Noted Time PHQ-9 Depression Total Score: 10 023 2:09 PM EST documented as of this encounter Care Teams Continuous Process Coffee Roaster Relationship Specialty Start Date End Date Marii Mcmillan MD [address] [place] [address] PCP - General Family Medicine 07/11/21 Evelyne Green Gis Web DeveloperManager Cancer 12/09/23 documented as of this encounter
--- OUTSIDE RECORDS SUMMARY | 2024-05-23 15:42 | XMS_ITS | Encounter Summary ---
Author Organization [employer] Address 75 [facility] 7t [place] [address] Care Team Providers Care Campus Police Officer Name Role Phone Marii Mcmillan MD Primary Care Provider [phone] Reason for Visit * Reason Onset Date Comments Referral 05/20/2022 Encounter Details Date Type Department Care Team ([facility] st Contact Info) Description 05/20/2022 Telephone [facility] CHC MED & PEDS [address] [place] [address] Marii Mcmillan MD [address] [place] [address] Referral Social History Tobacco Use Types Packs/Day [...] made on 02/04/2022. Please contact pt at [phone] documented in this encounter Plan of Treatment Upcoming Encounters Date Type Department Care Team ([facility] st Contact Info) Description 05/30/2024 2:00 PM EDT Telemedicine [facility] MED & PEDS [address] [place] [address] Leelee Castaneda, RN 505 [place] [address] documented as of this encounter Visit Diagnoses Not on filedocumented in this encounter Care Teams Campus Police Officer Relationship Specialty Start Date End Date Marii Mcmillan MD [address] [place] [address] PCP - General Family Medicine 07/11/21 Evelyne Green Technical InstructorSenior Electrical Design Engineer 12/09/23 documented as of this encounter
--- OUTSIDE RECORDS SUMMARY | 2024-05-23 15:42 | XMS_ITS | Encounter Summary ---
Author Organization [employer] Address [address] [facility] [address] [place] [address] Care Team Providers Care Workforce Staffing Advisor Name Role Phone Marii Mcmillan MD Primary Care Provider Reason for Visit * Reason Onset Date Comments Appointment Request 01/11/2024 Encounter Details Date Type Department Care Team ([facility] Contact Info) Description 01/11/2024 Telephone [facility] MEDICINE [address] [place] [address] Marii Mcmillan MD 505 [place] [address] Appointment Request Social History Tobacco Use Types [...] from pt calling in regards to tomorrows FRONT DESK PERSON visit stating he is feeling sick and is wondering ifhe can change appt to a telephone visit. Please contact pt at [phone]. documented in this encounter Plan of Treatment Upcoming Encounters Date Type Department Care Team (Late st Contact Info) Description 05/30/2024 2:00 PM EDT Telemedicine [facility] MED & PEDS [address] [place] [address] Leelee Castaneda, RN 505 [place] [address] documented as of this encounter Visit Diagnoses Not on filedocumented in this encounter Additional Health Concerns Assessment Noted Time PHQ-9 Depression Total Score: 10 023 2:09 PM EST documented as of this encounter Care Teams Workforce Staffing Advisor Relationship Specialty Start Date End Date Marii Mcmillan MD [address] [place] [address] PCP - General Family Medicine 07/11/21 Evelyne Green Linen Supply Load BuilderFilm Vault Supervisor 12/09/23 documented as of this encounter
--- OUTSIDE RECORDS SUMMARY | 2024-05-23 15:42 | XMS_ITS | Encounter Summary ---
Author Organization [employer] Address [address] [facility] [address] 7t [place] [address] Care Team Providers Care Traffic Division Commanding Officer Name Role Phone Marii Mcmillan MD Primary Care Provider [phone] Encounter Details Date Type Department Care Team (Late st Contact Info) Description 06/22/2023 Telephone [facility] MEDICINE [address] [place] [address] Marii Mcmillan MD [address] [place] [address] Social History Tobacco Use Types Packs/Day Years [...] Info) Description 05/30/2024 2:00 PM EDT Telemedicine [facility] MED & PEDS [address] [place] [address] Leelee Castaneda, RN 505 [place] [address] documented as of this encounter Visit Diagnoses Not on filedocumented in this encounter Additional Health Concerns Assessment Noted Time PHQ-9 Depression Total Score: 10 023 2:09 PM EST documented as of this encounter Care Teams Traffic Division Commanding Officer Relationship Specialty Start Date End Date Marii Mcmillan MD [address] [place] [address] PCP - General Family Medicine 07/11/21 Evelyne Green NetworkerClinical Services Manager 12/09/23 documented as of this encounter
--- OUTSIDE RECORDS SUMMARY | 2024-05-23 15:42 | XMS_ITS | Encounter Summary ---
Author Organization [employer] Address 75 [facility] 7t [place] [address] Care Team Providers Care Pathology Supervisor Name Role Phone Marii Mcmillan MD Primary Care Provider [phone] Reason for Visit * Reason Onset Date Comments Med Refill 01/28/2024 Encounter Details Date Type Department Care Team ([facility] st Contact Info) Description 01/28/2024 Telephone [facility] MEDICINE [address] [place] [address] Marii Mcmillan MD 505 [place] [address] Med Refill Social History Tobacco Use Types [...] 5-325 MG tablet To be sent to: [facility]/pharmacy #[id number] MARY CARIAS - [address] [place] [address] documented in this encounter Plan of Treatment Upcoming Encounters Date Type Department Care Team (Late st Contact Info) Description 05/30/2024 2:00 PM EDT Telemedicine [facility] CHC MED & PEDS 505 [place] [address] Leelee Castaneda, RN 505 [place] [address] documented as of this encounter Visit Diagnoses Not on filedocumented in this encounter Additional Health Concerns Assessment Noted Time PHQ-9 Depression Total Score: 10 023 2:09 PM EST documented as of this encounter Care Teams Pathology Supervisor Relationship Specialty Start Date End Date Marii Mcmillan MD [address] [place] [address] PCP - General Family Medicine 07/11/21 Evelyne Green Motorcycle RacerInformation Systems Security Manager 12/09/23 documented as of this encounter
--- OUTSIDE RECORDS SUMMARY | 2024-05-23 15:42 | XMS_ITS | Encounter Summary ---
Author Organization [employer] Address [address] [facility] 7t [place] [address] Care Team Providers Care Security Advisor Name Role Phone Marii Mcmillan MD Primary Care Provider [phone] Reason for Visit * Reason Onset Date Comments Med Refill 04/27/2024 Encounter Details Date Type Department Care Team (Late st Contact Info) Description 04/27/2024 Refill [facility] MEDICINE [address] [place] [address] Marii Mcmillan MD 505 [place] [address] Polyarthralgia Social History Tobacco Use Types Packs/Day [...] 5-325 MG tablet To be sent to: [facility]/pharmacy #[id number] MARY CARIAS - [address] [facility] documented in this encounter Plan of Treatment Upcoming Encounters Date Type Department Care Team (Late st Contact Info) Description 05/30/2024 2:00 PM EDT Telemedicine [facility] MED & PEDS [address] [place] [address] Leelee Castaneda, RN [address] [place] [address] documented as of this encounter Visit Diagnoses Diagnosis Polyarthralgia Pain in joint, multiple sites documented in this encounter Additional Health Concerns Assessment Noted Time PHQ-9 Depression Total Score: 10 023 2:09 PM EST documented as of this encounter Care Teams Security Advisor Relationship Specialty Start Date End Date Marii Mcmillan MD [address] [place] [address] PCP - General Family Medicine 07/11/21 Evelyne Green Plate DeveloperFund Director 12/09/23 documented as of this encounter
--- OUTSIDE RECORDS SUMMARY | 2024-05-23 15:42 | XMS_ITS | Encounter Summary ---
Author Organization [employer] Address 75 [facility] 7t [place] [address] Care Team Providers Care Campus Manager Name Role Phone Marii Mcmillan MD Primary Care Provider [phone] Reason for Visit * Reason Onset Date Comments Referral 03/12/2023 Encounter Details Date Type Department Care Team ([facility] Contact Info) Description 03/12/2023 Telephone [facility] MED & PEDS [address] [place] [address] Marii Mcmillan MD 505 [place] [address] Referral Social History Tobacco Use Types Packs/Day [...] 03/12/2023 4:18 PM EST Referral re-faxed to [facility]. * Telephone Encounter - Brooke Corral - 03/12/2023 1:49 PM EST Tc from [facility] office of [facility] gastroenterology has not received referral. documented in this encounter Plan of Treatment Upcoming Encounters Date Type Department Care Team (Late st Contact Info) Description 05/30/2024 2:00 PM EDT Telemedicine [facility] MED & PEDS [address] [place] [address] Leelee Castaneda, RN [address] [place] [address] documented as of this encounter Visit Diagnoses Not on filedocumented in this encounter Additional Health Concerns Assessment Noted Time PHQ-9 Depression Total Score: 10 023 2:09 PM EST documented as of this encounter Care Teams Campus Manager Relationship Specialty Start Date End Date Marii Mcmillan MD [address] [place] [address] PCP - General Family Medicine 07/11/21 Evelyne Green Veterinarian HelperElectronic Integrated Systems Mechanic 12/09/23 documented as of this encounter
--- OUTSIDE RECORDS SUMMARY | 2024-05-23 15:42 | XMS_ITS | Encounter Summary ---
Author Organization [employer] Address [address] [facility] 7t [place] [address] Care Team Providers Care Butter Production Supervisor Name Role Phone Marii Mcmillan MD Primary Care Provider Reason for Visit * Reason Onset Date Comments CHART PREP 01/26/2024 Encounter Details Date Type Department Care Team ([facility] Contact Info) Description 01/26/2024 Telephone [facility] MED & PEDS [address] [place] [address] Marii Mcmillan MD [address] [place] [address] CHART PREP Social History Tobacco Use Types [...] [facility] CHC MED & PEDS [address] [place] [address] Leelee Castaneda, RN [address] [place] [address] documented as of this encounter Visit Diagnoses Diagnosis Polyarthralgia Pain in joint, multiple sites documented in this encounter Additional Health Concerns Assessment Noted Time PHQ-9 Depression Total Score: 10 023 2:09 PM EST documented as of this encounter Care Teams Butter Production Supervisor Relationship Specialty Start Date End Date Marii Mcmillan MD [address] [place] [address] PCP - General Family Medicine 07/11/21 Evelyne Green Chef ManagerMicroscopist 12/09/23 documented as of this encounter
--- OUTSIDE RECORDS SUMMARY | 2024-05-23 15:42 | XMS_ITS | Encounter Summary ---
Author Organization [employer] Address [address] [facility] 7t [place] [address] Care Team Providers Care Local Truck Driver Name Role Phone Marii Mcmillan MD Primary Care Provider [phone] Reason for Visit * Reason Onset Date Comments Appointment Request 04/22/2023 Encounter Details Date Type Department Care Team ([facility] Contact Info) Description 04/22/2023 Telephone [facility] MED & PEDS [address] [place] [address] Marii Mcmillan MD 505 [place] [address] Appointment Request Social History Tobacco Use Types [...] was scheduled for [facility] apt today in [facility] but, due to car not starting [...] fever. Pt is offered to come to [facility] today or tomorrow morning but, Pt would rather come to [facility]. Pt is advised to call back [...] (Car wont Start) Please contact pt @ [phone] documented in this encounter Plan of Treatment Upcoming Encounters Date Type Department Care Team ([facility] st Contact Info) Description 05/30/2024 2:00 PM EDT Telemedicine [facility] MED & PEDS [address] [place] [address] Leelee Castaneda, RN [address] [place] [address] documented as of this encounter Visit Diagnoses Not on filedocumented in this encounter Additional Health Concerns Assessment Noted Time PHQ-9 Depression Total Score: 10 023 2:09 PM EST documented as of this encounter Care Teams Local Truck Driver Relationship Specialty Start Date End Date Marii Mcmillan MD [address] [place] [address] PCP - General Family Medicine 07/11/21 Evelyne Green Display CarverWeathercaster 12/09/23 documented as of this encounter
--- OUTSIDE RECORDS SUMMARY | 2024-05-23 15:42 | XMS_ITS | Encounter Summary ---
Author Organization [employer] Address [address] [place] [address] 7t [place] [address] Care Team Providers Care Manager Personal Name Role Phone Marii Mcmillan MD Primary Care Provider [phone] Reason for Referral * Imaging (STAT) - Closed Specialty Diagnoses / Procedures Referred By Contac t Referred To Contact Radiology Diagnoses Mass of right inguinal region Procedures Us Pelvis complete Gildardo Huertas MD [address] [place] [address] Phone: tel: fax: [address] Phone: tel: fax: Referral ID Status Reason Start Date Expiration Date Visits Re quested Visits Authorized [id number] Closed 09/18/2022 09/18/2023 1 1 Encounter Details Date Type Department Care Team (Late st Contact Info) Description 09/18/2022 Orders Only [facility] MED & PEDS [address] [place] [address] Gildardo Huertas MD [address] [place], [place] [phone] Mass of right inguinal region (Primary Dx) [...] Upcoming Encounters Date Type Department Care Team ([facility] st Contact Info) Description 05/30/2024 2:00 PM EDT Telemedicine [facility] MED & PEDS [address] [place] [address] Leelee Castaneda, RN [address] [place] [address] Scheduled Orders Name Type Priority Associated Diagnoses [...] EDT Narrative 09/25/2022 10:43 AM EDT ? [facility] ?[address] ?[place] [address] ? Ultrasound Report ? Signed ? Patient: Grimm,Manuel D ?MR#: [id number] ?? [id number] ? : 1960 ?Acct:[id number] ? Age/Sex: 62 / M ?ADM Date: 07/06/23 ? Loc: HO.US ? Attending Dr: Marii Mcmillan MD ? Ordering Physician: Marii Mcmillan MD ?? Date of Service: 09/18/22 ?? Procedure(s): US pelvic limited ?? Accession Number(s): [id number] ? cc: Marii Mcmillan MD ? EXAMINATION: [...] 1039 ? DD/ 1503 ? TD/TT: ? Residential Life Director: ? Procedure Note [place], Image - 09/25/2022 [place] [address] Ultrasound Report Signed Patient: Manuel Grimm DMR#: [id number] : 1Acct:[id number] Age/Sex: 62 / MADM Date: 09/18/22 Loc: HO.US Attending Dr: Marii Mcmillan MD Ordering Physician: Marii Mcmillan MD Date of Service: 09/18/22 Procedure(s): US pelvic limited Accession Number(s): [id number] cc: Marii Mcmillan MD EXAMINATION: US RIGHT [...] in OV> 09/25/22 1039 DD/ 1503 TD/TT: Residential Life Director: [facility] External Provider IMG US PROCEDURES Final Result documented in this encounter Visit Diagnoses Diagnosis Mass of right inguinal region- Primary documented in this encounter Additional Health Concerns Assessment Noted Time PHQ-9 Depression Total Score: 10 023 2:09 PM EST documented as of this encounter Care Teams Manager Personal Relationship Specialty Start Date End Date Marii Mcmillan MD [address] [place] [address] PCP - General Family Medicine 07/11/21 Evelyne Green Wet Inspector Optical GlassImmigration Consultant 12/09/23 documented as of this encounter
--- OUTSIDE RECORDS SUMMARY | 2024-05-23 15:42 | XMS_ITS | Encounter Summary ---
Author Organization [employer] Address [address] [facility] 7t [place] [address] Care Team Providers Care Linen Attendant Name Role Phone Marii Mcmillan MD Primary Care Provider Encounter Details Date Type Department Care Team ([facility] st Contact Info) Description 05/09/2024 Orders Only [...] Description 05/30/2024 2:00 PM EDT Telemedicine [facility] MED & PEDS [address] [place] [address] Leelee Castaneda, RN [address] [place] [address] documented as of this encounter Procedures Procedure Name Priority Date/Time Associated Diagnosis Comments MRSA NASAL SCREEN Routine 05/09/2024 1:0 0 PM EST documented in this encounter Results * MRSA Nasal Screen (05/09/2024 1:00 PM EST) MRSA Nasal PCR NEGATIVE Negative [facility] SA Nasal PCR NEGATIVE Negative [facility] MRSA Interpretation SEE NOTE [facility] Comment:MRSA target DNA not detected; SA target DNA not detected.A MRSA NEGATIVE, SA NEGATIVE test result does not precludeMRSA or SA nasal colonization. 05/09/2024 1:00 PM EST 05/09/2024 1:18 PM EST us Generic External Data Provider LAB MICROBIOLOGY - GENERAL ORDERABLES Final Result [facility] [address] [place] [phone] documented in this encounter Visit Diagnoses Not on filedocumented in this encounter Additional Health Concerns Assessment Noted Time PHQ-9 Depression Total Score: 10 023 2:09 PM EST documented as of this encounter Care Teams Linen Attendant Relationship Specialty Start Date End Date Marii Mcmillan MD [address] [place] [address] PCP - General Family Medicine 07/11/21 Evelyne Green District Sales LeaderCoffee Supervisor 12/09/23 documented as of this encounter
--- OUTSIDE RECORDS SUMMARY | 2024-05-23 15:42 | XMS_ITS | Clinical Summary ---
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 Assessment & Plan (04/21/2023 1:34 PM EST): Patient with Hx of Hip Arthritis stated that medications are not improving hip pain. Therefore, will discontinue prior medications, and will be prescribing Oxycodone. Recommended to follow up with an in-person visit. Assessment & Plan (02/26/2023 3:51 PM EST): [facility] Hip Pain will be [...] Provider, Generic External Data 04/29/2024 Orders Only [facility] [address] [place] [address] Star Dick MD Polyarthralgia 04/27/2024 Refill [facility] [address] [place] [address] Marii Mcmillan MD Polyarthralgia 04/21/2024 Telephone [facility] [address] [place] [address] Gildardo Huertas MD 04/18/2024 2:00 PM EST Office Visit [facility] [address] [place] [address] Gildardo Huertas MD Pre-op evaluation (Primary Dx); LBBB (left bundle branch block) 04/18/2024 Travel 03/29/2024 Refill [facility] [address] [place] [address] Marii Mcmillan MD Polyarthralgia 03/18/2024 Telephone [facility] [address] [place] [address] Marii Mcmillan MD call back/referral 03/10/2024 2:00 PM EST Clinical Support [facility] [address] [place] [address] Leelee Castaneda RN Right hip pain 03/10/2024 Travel 03/03/2024 Telephone [facility] [address] [place] [address] Marii Mcmillan MD Pre-op Exam 02/29/2024 Refill [facility] [address] [place] [address] Marii Mcmillan MD Polyarthralgia from Last 3 [...] Upcoming Encounters Date Type Department Care Team ([facility] st Contact Info) Description 05/30/2024 2:00 PM EDT Telemedicine [facility] [address] [place] [address] Leelee Castaneda, RN [address] [place] [address] Health Maintenance Due Date Last Done Comments [...] Vitamin K1 1813(A) 130 - 1500 pg/mL [facility] Comment:This test was ramon chowdhury and its analytical performancecharacteristics have been determined by [employer] [place], [place]. It hasnot been cleared or approved by the U.S. Food and DrugAdministration. This assay has been validated pursuantto the CLIA regulations and is used for clinicalpurposes.THIS TEST WAS PERFORMED AT:[id number] [place] [address]HNERWAA W. MASON,MD,PHD 05/18/2024 8:57 AM EST 05/18/2024 8:57 AM EST Generic External Data Provider LAB BLOOD ORDERAB LES Final Result Performing Organization Address [facility] Co de Phone Number [facility] [address] [place] [phone] * (ABNORMAL) Vitamin D, 25-Hydroxy, Total, Immunoassay (05/18/2024 8:57 AM EST) Vitamin D 25-OH Total 20.4(L) >30 ng/mL [facility] Comment:Health Based Referen ce Values*< 20 ng/mL Ctlvbspps52-59 ng/mL Insufficient> 30 ng/mL Sufficient*Mavis CANTRELL. N [...] ORDERAB LES Final Result Performing Organization Address [facility]/ZIP Co de Phone Number [facility] [address] [place] [phone] * Vitamin B12 (Cobalamin) and Folate Panel, Serum (05/18/2024 8:57 AM EST) Pathologist [facility] Vitamin B12 617 200 - 900 pg/mL [facility] Comment:NORMAL 200-900 PG/ML INDETERMINATE 160-199 PG/ML DEFICIENT < 160 PG/ML Folate 11.8 > or = 4.0 ng/mL [facility] Comment:Reference Values:> o r = 4.0 ng/mL< 4.0 ng/mL suggests folate deficiency Methotrexate, aminopterin and folinic acid(leucovorin) are chemotherapeutic agents whose molecularstructures are similar to folate; therefore, the Architectfolate assay cannot be used for patients using these drugs. 05/18/2024 8:57 AM EST 05/18/2024 8:57 AM EST us Generic External Data Provider LAB BLOOD ORDERAB LES Final Result [facility] [address] [place] [phone] * (ABNORMAL) CBC auto differential (05/18/2024 8:57 AM EST) Only the most recent of2 resultswithin the time period is included. [facility] White Blood Count 5.1 4.8 - 10.8 X10*3/uL [facility] Red Blood Count 4.66 4.60 - 5.80 X10*6/uL [facility] Hemoglobin 14.4 14.0 - 18.0 g/dl [facility] Hematocrit 40.4(L) 42.0 - 52.0 % [facility] Mean Corpuscular Volume 86.7 80.0 - 98.0 fL [facility] Mean Corpuscular Hemoglobin 30.9 27.0 - 33.0 pg [facility] Mean Corpuscular HGB Conc 35.6 31.0 - 36.0 g/dl [facility] Red Cell Distribution Width 13.1 11.0 - 16.0 % [facility] Platelet Count 119(L) 160 - 400 X10*3/uL [facility] Mean Platelet Volume 10.2 9.4 - 12.4 fL [facility] Neutrophils Percent Auto 44.2(L) 45 - 73 % [facility] Imm Gran Pct Auto 0.2 0.0 - 0.4 % [facility] Lymphocytes Percent Auto 31.2 20 - 40 % [facility] Monocytes Percent Auto 17.0(H) 2 - 11 % [facility] Eosinophils Percent Auto 6.8(H) 0 - 4 % [facility] Basophils Percent Auto 0.6 0 - 2 % [facility] NRBC Pct Auto 0.0 0.0 - 0.2 /100WBC [facility] Neutrophils Absolute Auto 2.3 2.0 - 8.3 x10*3/uL [facility] Imm Gran Abs Auto 0.01 0.00 - 0.03 X10*3/uL [facility] Lymphocytes Absolute Auto 1.6 1.2 - 4.9 X10*3/uL [facility] Monocytes Absolute Auto 0.9 0.1 - 1.2 X10*3/uL [facility] Eosinophils Absolute Auto 0.4 0.0 - 0.4 X10*3/uL [facility] Basophils Absolute Auto 0.0 0.0 - 0.2 X10*3/uL [facility] NRBC Abs Auto 0.000 0.0 - 0.012 X10*3/uL [facility] 05/18/2024 8:57 AM EST 05/18/2024 8:57 AM EST us Generic External Data Provider LAB BLOOD ORDERAB LES Final Result [facility] [address] [place] [phone] [phone] * Prothrombin Time-INR (05/18/2024 8:57 AM EST) Only the most recent of2 resultswithin the time period is included. Prothrombin Time 11.1 10.9 - 12.4 SEC [facility] INTERNATIONAL NORM RATIO 1.0 0.9 - 1.1 [facility] Comment:INTERNATIONAL NORMAL IZED RATIO (INR) [...] ORDERAB LES Final Result Performing Organization Address City/[facility] [[email or web address]] de Phone Number [facility] [address] [place] [phone] * Vitamin E (Tocopherol) (05/18/2024 8:57 AM EST) Vitamin E, Alpha-Tocopherol 7.4 5.7 - 19.9 mg/L [facility] Comment:Levels of alpha-toco pherol <5 mg/L are consistentwith Vitamin E deficiency in adults. Vitamin E, Pwpy-Phizo-Cekkcufuqa <1.0 <=4.3 mg/L [facility] Comment:Vitamin supplementat ion within 24 hours prior toblood draw may affect the accuracy of the results.This test was developed and its analytical performancecharacteristics have been determined by [employer] [place], [place]. It hasnot been cleared or approved by the U.S. Food and DrugAdministration. This assay has been validated pursuantto the CLIA regulations and is used for clinicalpurposes.THIS TEST WAS PERFORMED AT:[id number] [place] [address]TLQONZYLON ROCA MD,PHD 05/18/2024 8:57 AM EST 05/18/2024 8:57 AM EST us Generic External Data Provider LAB BLOOD ORDERAB LES Final Result Performing Organization Address City/State/[facility] Co de Phone Number [facility] [address] [place] [phone] * Magnesium (05/18/2024 8:57 AM EST) [facility] Magnesium 2.0 1.6 - 2.6 mg/dL [facility] 05/18/2024 8:57 AM EST 05/18/2024 8:57 AM EST Generic External Data Provider LAB BLOOD ORDERAB LES Final Result Performing Organization Address [facility] Co de Phone Number [facility] [address] [place] [phone] * (ABNORMAL) Ferritin (05/18/2024 8:57 AM EST) [facility] Ferritin 351(H) 20 - 250 ng/mL [facility] 05/18/2024 8:57 AM EST 05/18/2024 8:57 AM EST Generic External Data Provider LAB BLOOD ORDERAB LES Final Result Performing Organization Address [facility] [[email or web address]] de Phone Number [facility] [address] [place] [phone] * (ABNORMAL) Comprehensive Metabolic Panel (05/18/2024 8:57 AM EST) Only the most recent of2 resultswithin the time period is included. [facility] Sodium 140 135 - 145 mmol/L [facility] Potassium 3.6 3.3 - 5.1 mmol/L [facility] Chloride 109(H) 96 - 108 mmol/L [facility] Carbon Dioxide 24 22 - 29 mmol/L [facility] Anion Gap 11(L) 12 - 20 [facility] Urea Nitrogen (BUN) 21(H) 9 - 16 mg/dL [facility] Creatinine, Serum 0.77 0.5 - 1.4 mg/dL [facility] Estimated Glomerular Filt Rate >60 [facility] Comment:Chronic Kidney Disea se: Estimated GFR < 60 mL/min/1.70v0Lpyqpq Kidney Disease: Estimated GFR < 15 mL/min/1.73m2 Glucose 85 60 - 115 mg/dL [facility] Calcium 9.4 8.4 - 10.2 mg/dL [facility] Bilirubin, Total 0.9 0.0 - 1.0 mg/dL [facility] Aspartate Amino Transferase 29 5 - 37 U/L [facility] Alanine Aminotransferase 26 0 - 40 U/L [facility] Total Protein 7.6 6.5 - 8.0 g/dL [facility] Albumin Level 4.3 3.5 - 5.0 g/dL [facility] Alkaline Phosphatase 60 39 - 117 U/L [facility] 05/18/2024 8:57 AM EST 05/18/2024 8:57 AM EST Generic External Data Provider LAB BLOOD ORDERAB LES Final Result Performing Organization Address [facility] Co de Phone Number [facility] [address] [place] [phone] * MRSA Nasal Screen (05/09/2024 1:00 PM EST) MRSA Nasal PCR NEGATIVE Negative [facility] SA Nasal PCR NEGATIVE Negative [facility] MRSA Interpretation SEE NOTE [facility] Comment:MRSA target DNA not detected; SA target DNA not detected.A MRSA NEGATIVE, SA NEGATIVE test result does not precludeMRSA or SA nasal colonization. 05/09/2024 1:00 PM EST 05/09/2024 1:18 PM EST us Generic External Data Provider LAB MICROBIOLOGY - GENERAL ORDERABLES Final Result Performing Organization Address [facility]/ZIP Co de Phone Number [facility] [address] [place] [phone] * ECG 12 lead (04/18/2024 4:12 PM EST) Narrative Gildardo Huertas MD - 04/18/2024 4:12 PM EST HR: 65 bpm. [place] 18. ??LBBB. ??High lateral and lateral repolarization disturbance. ??Normal sinus rhythm Gildardo Huertas MD ECG ORDERABLES Final Resul t * TSH W/Reflex to FT4 (04/18/2024 3:15 PM EST) TSH reflex Free T4 2.40 0.32 - 4.0 uIU/mL [facility] Blood Venous blood specimen / Unknown 04/18/2024 3:15 PM EST 04/18/2024 5:39 PM EST Gildardo Huertas MD LAB BLOOD ORDERABLES Final Result [facility] [address] [place] [phone] * HIV-1/2 Antigen and Antibodies, Fourth Generation, with Reflexes (04/18/2024 3:15 PM EST) HIV AB/AG Nonreactive Nonreactive [facility] Comment:HIV-1 p24 Ag and/or HIV-1/HIV-2 Ab not detected.A test result that is nonreactive does not exclude thepossibility of exposure to or infection with HIV-1 and/orHIV-2. Nonreactive results in this assay for individualswith prior exposure to HIV-1 and/or HIV-2 may be due toantigen and antibody levels that are below the limit ofdetection of this assay.The [employer] HIV Ag/Ab Combo assay result andsupplemental assay results should be interpreted inconjunction with the patient's clinical presentation,history and other laboratory results. If the results areinconsistent with clinical evidence, additional testing issuggested to confirm the result. Blood Venous blood specimen / Unknown 04/18/2024 3:15 PM EST 04/18/2024 5:39 PM EST us Gildardo Huertas MD LAB BLOOD ORDERABLES Final Result Performing Organization Address [facility]/ZIP Co de Phone Number [facility] [address] [place] [phone] * Partial Thromboplastin Time, Activated (APTT) (04/18/2024 3:15 PM EST) Partial Thromboplastin Time 34.9 26.0 - 36.8 SEC [facility] Comment:For information rega rding the monitoring of direct thrombininhibitors, please refer to Pharmacy. Blood Venous blood specimen / Unknown 04/18/2024 3:15 PM EST 04/18/2024 5:39 PM EST us Gildardo Huertas MD LAB BLOOD ORDERABLES Final Result Performing Organization Address [facility] Co de Phone Number [facility] [address] [place] [phone] * Prealbumin (04/18/2024 3:15 PM EST) Prealbumin 22.0 20 - 40 mg/dL [facility] Blood Venous blood specimen / Unknown 04/18/2024 3:15 PM EST 04/18/2024 5:39 PM EST us Gildardo Huertas MD LAB BLOOD ORDERABLES Final Result Performing Organization Address City/[facility] Co de Phone Number [facility] [address] [place] [phone] * POCT MITCHELL-14 Urine Drug Screen (03/10/2024 2:25 PM EST) THC Positive Oxycodone Screen, Urine Positive Urine Urine specimen obtained by clean catch procedure / Unknown 03/10/2024 2:25 PM EST Narrative Leelee Castaneda RN - 03/10/2024 2:25 PM EST Lot# [id number] Exp: 02-19-25 us Marii Mcmillan MD POINT [...] ?? Fortunato GIBSON et al. ISHAN. 2013;310(19): 9200-1123 ?? (http://education.TeamBuy/faq/DRW329) Non-HDL Cholesterol 124 <130 mg/dL (calc) [facility] Comment: For patients with diabetes plus 1 major ASCVD risk ?? factor, treating to a non-HDL-C goal of <100 mg/dL ?? (LDL-C of <70 mg/dL) is considered a therapeutic ?? option. Triglycerides 102 <150 mg/dL [facility] 07/26/2021 10:5 8 AM EDT us Marii Mcmillan MD LAB BLOOD ORDERABLES Final Re sult [facility] [address] from Last 3 Months or Most Recently Relevant to Health Maintenance Insurance [employer] C3 Care Teams Government Affairs Researcher Relationship Specialty Start Date End Date Marii Mcmillan MD [address] [place] [phone] PCP - General Family Medicine 07/11/21 Evelyne Green Furnace MasonTetryl Wringer Operator 12/09/23
--- OUTSIDE RECORDS SUMMARY | 2024-05-23 15:42 | XMS_ITS | Encounter Summary ---
Author Organization [employer] Address [address] [place] [address] 7t [place] [address] Care Team Providers Care Airfreight Loading Supervisor Name Role Phone Mraii Mcmillan MD Primary Care Provider [phone] Reason for Visit * Reason Comments Med Refill Encounter Details Date Type Department Care Team (Late Contact Info) Description 04/08/2022 Refill [facility] [address] [place] [address] Marii Mcmillan MD [address] [place] [address] Vitamin deficiency, unspecified Social History Tobacco Use [...] [facility] [address] [place] [address] Leelee Castaneda RN [address] [place] [address] documented as of this encounter Visit Diagnoses Diagnosis Vitamin deficiency, unspecified documented in this encounter Care Teams Airfreight Loading Supervisor Relationship Specialty Start Date End Date Marii Mcmillan MD [address] [place] [address] PCP - General Family Medicine 07/11/21 Evelyne Green Pneumatic Hoist OperatorAdvertising Photographer 12/09/23 documented as of this encounter
--- OUTSIDE RECORDS SUMMARY | 2024-05-23 15:42 | XMS_ITS | Encounter Summary ---
Author Organization [employer] Address [address] [place] [address] Care Team Providers Care Keypuncher Name Role Phone Marii Mcmillan MD Primary Care Provider [phone] Reason for Visit * Reason Onset Date Comments PT1 05/15/2023 Encounter Details Date Type Department Care Team ([facility] st Contact Info) Description 05/15/2023 Telephone [facility] [address] [place] [address] Marii Mcmillan MD [address] [place] [address] PT1 Social History Tobacco Use Types Packs/Day [...] visits) ( x monthly, weekly, daily) Address: [address] [place] [address] Facility[facility] Wheel Chair: NO Solution Sales Senior Executive Needed: NO Address and phone confirmed by Evelyne CHAWLA documented in this encounter Plan of Treatment Upcoming Encounters Date Type Department Care Team (Late st Contact Info) Description 05/30/2024 2:00 PM EDT Telemedicine [facility] [address] [place] [address] Leelee Castaneda, REGINA [address] [place] [address] documented as of this encounter Visit Diagnoses Not on filedocumented in this encounter Additional Health Concerns Assessment Noted Time PHQ-9 Depression Total Score: 10 023 2:09 PM EST documented as of this encounter Care Teams Keypuncher Relationship Specialty Start Date End Date Marii Mcmillan MD [address] [place] [address] PCP - General Family Medicine 07/11/21 Evelyne Green Surgical Garment AssemblerMaterials Planning Manager 12/09/23 documented as of this encounter
--- OUTSIDE RECORDS SUMMARY | 2024-05-23 15:42 | XMS_ITS | Encounter Summary ---
Author Organization [employer] Address [address] [facility] 7[address] [place] [address] Care Team Providers Care Septic Tank Setter Name Role Phone Marii Mcmillan MD Primary Care Provider [phone] Reason for Visit * Reason Comments Med Change Request Encounter Details Date Type Department Care Team ([facility] Contact Info) Description 05/29/2022 Refill [facility] PEDS [address] [place] [address] Marii Mcmillan MD [address] [place] [address] Takes dietary supplements Social History Tobacco Use [...] Info) Description 05/30/2024 2:00 PM EDT Telemedicine [facility] [address] [place] [address] Leelee Castaneda, RN [address] [place] [address] documented as of this encounter Visit Diagnoses Diagnosis Takes dietary supplements documented in this encounter Additional Health Concerns Assessment Noted Time PHQ-9 Depression Total Score: 10 023 2:09 PM EST documented as of this encounter Care Teams Septic Tank Setter Relationship Specialty Start Date End Date Marii Mcmillan MD [address] [place] [address] PCP - General Family Medicine 07/11/21 Evelyne Green Janitorial TechCash Register Servicer 12/09/23 documented as of this encounter
[2024-05-25 22:27] LABS: Zinc 56 mcg/dL (60-130)
[2024-05-28 10:53] LABS: Vitamin C <0.1 mg/dL (0.2-2.1)
[2024-05-28 15:49] LABS: Nicotinamide <20 ng/mL (see note); Vit B3 - Nicotinic Acid <20 ng/mL (see note)
== END 2024-05-23 13:50 | disposition home or self-care (01) ==
LOC: HO.LAB 13:49
PROVIDERS: PCP Family Medicine; Visit Provider Internal Medicine Gastroenterology
DX: K74.60 Unspecified cirrhosis of liver (principal)
CPT/HCPCS: 36415; 82180; 84591; 84630

== ENCOUNTER → 2024-05-25 08:09 | Outpatient (REF) | payer MEDICAID, SELFPAY ==
--- OUTSIDE RECORDS SUMMARY | 2024-05-25 08:17 | XMS_ITS | Encounter Summary ---
Author Organization [employer] Address [address] [facility] 7t [place] [address] Care Team Providers Care Pie Crust Mixer Name Role Phone Marii Mcmillan MD Primary Care Provider [phone] Reason for Visit * Reason Onset Date Comments Appointment Request 04/22/2023 Encounter Details Date Type Department Care Team ([facility] Contact Info) Description 04/22/2023 Telephone [facility] MED & PEDS [address] [place] [address] Marii Mcmillan MD [address] [place] [address] Appointment Request Social History Tobacco Use Types [...] was scheduled for [facility] apt today in [facility] but, due to car [...] fever. Pt is offered to come to [facility] today or tomorrow morning but, Pt would rather come to [facility]. Pt is advised to [...] (Car wont Start) Please contact pt @ [phone] documented in this encounter Plan of Treatment Upcoming Encounters Date Type Department Care Team ([facility] st Contact Info) Description 05/30/2024 2:00 PM EDT Telemedicine [facility] MED & PEDS [address] [place] [address] Leelee Castaneda, RN [address] [place] [address] documented as of this encounter Visit Diagnoses Not on filedocumented in this encounter Additional Health Concerns Assessment Noted Time PHQ-9 Depression Total Score: 10 023 2:09 PM EST documented as of this encounter Care Teams Pie Crust Mixer Relationship Specialty Start Date End Date Marii Mcmillan MD [address] [place] [address] PCP - General Family Medicine 07/11/21 Evelyne Green [employer] ProfessionalInformation Tech 12/09/23 documented as of this encounter
--- OUTSIDE RECORDS SUMMARY | 2024-05-25 08:17 | XMS_ITS | Encounter Summary ---
Author Organization [employer] Address [address] [facility] [address] [place] [address] Care Team Providers Care Lead Programmer Name Role Phone Marii Mcmillan MD Primary Care Provider [phone] Encounter Details Date Type Department Care Team [...] [facility] MED & PEDS [address] [place] [address] Leelee Castaneda, RN [address] [place] [address] Pending Results Name Type Priority Associated Diagnoses Date /Time Vitamin A Lab Routine 05/18/2024 8:5 7 AM EST Vitamin B6, Plasma Lab Routine 2024 8:57 AM EST documented as of this encounter Procedures Procedure Name Priority Date/Time Associated Diagnosis Comments VITAMIN B5 (PANTOTHENIC ACID) Routine 05/18/2024 8:57 AM EST VITAMIN K1 Routine 05/18/2024 8:57 AM EST [...] EST documented in this encounter Results * Vitamin B5 (Pantothenic Acid) (05/18/2024 8:57 AM EST) Vitamin B5 (Pantothenic Acid) <=40 <275 ng/mL [facility] Comment:This test was develo ped and its analyticalperformance characteristics have been determinedby [employer] [place], [place].It has not been cleared or approved by the FDA. Thisassay has been validated pursuant to the CLIAregulations and is used for clinical purposes.THIS TEST WAS PERFORMED AT:[employer] [address] [id number] ROCA MD,PHD 05/18/2024 8:57 AM EST 05/18/2024 8:57 AM EST us Generic External Data Provider LAB BLOOD ORDERAB LES Final Result [facility] [address] [place] [phone] * (ABNORMAL) Vitamin K1 (05/18/2024 8:57 AM EST) Vitamin K1 1813(A) 130 - 1500 pg/mL [facility] Comment:This test was develo ped and its analytical performancecharacteristics have been determined by [employer], [place]. It hasnot been cleared or approved by the U.S. Food and DrugAdministration. This assay has been validated pursuantto the CLIA regulations and is used for clinicalpurposes.THIS TEST WAS PERFORMED AT:[email or web address] [id number] [place] [id number] ROCA MD,PHD 05/18/2024 8:57 AM EST 05/18/2024 8:57 AM EST Generic External Data Provider LAB BLOOD ORDERAB LES Final Result Performing Organization Address [facility] Co de Phone Number [facility] [address] [place] [phone] * Vitamin E (Tocopherol) (05/18/2024 8:57 AM EST) Vitamin E, Alpha-Tocopherol 7.4 5.7 - 19.9 mg/L [facility] Comment:Levels of alpha-toco pherol <5 mg/L are consistentwith Vitamin E deficiency in adults. Vitamin E, Shtm-Ijwjl-Iprazuaahf <1.0 <=4.3 mg/L [facility] Comment:Vitamin supplementat ion within 24 hours prior toblood draw may affect the accuracy of the results.This test was developed and its analytical performancecharacteristics have been determined by [email or web address] [place], [place]. It hasnot been cleared or approved by the U.S. Food and DrugAdministration. This assay has been validated pursuantto the CLIA regulations and is used for clinicalpurposes.THIS TEST WAS PERFORMED AT:[employer] [place] [address]SGTXJKYLON ROCA MD,PHD 05/18/2024 8:57 AM EST 05/18/2024 8:57 AM EST Generic External Data Provider LAB BLOOD ORDERAB LES Final Result Performing Organization Address City/[facility]/ZIP Co de Phone Number [facility] [address] [place] [phone] * Vitamin B12 (Cobalamin) and Folate Panel, Serum (05/18/2024 8:57 AM EST) Vitamin B12 617 200 - 900 pg/mL [facility] Comment:NORMAL 200-900 PG/ML INDETERMINATE 160-199 PG/ML DEFICIENT < 160 PG/ML Folate 11.8 > or = 4.0 ng/mL [facility] Comment:Reference Values:> o r = 4.0 ng/mL< 4.0 ng/mL suggests folate deficiency Methotrexate, aminopterin and folinic acid(leucovorin) are chemotherapeutic agents whose molecularstructures are similar to folate; therefore, the Architectfolate assay cannot be used for patients using these drugs. 05/18/2024 8:57 AM EST 05/18/2024 8:57 AM EST Generic External Data Provider LAB BLOOD ORDERAB LES Final Result Performing Organization Address [facility] Co de Phone Number [facility] [address] [place] [phone] * (ABNORMAL) Vitamin D, 25-Hydroxy, Total, Immunoassay (05/18/2024 8:57 AM EST) Vitamin D 25-OH Total 20.4(L) >30 ng/mL [facility] Comment:Health Based Referen ce Values*< 20 ng/mL Vcdqmxtnq50-55 ng/mL Insufficient> 30 ng/mL Sufficient*Mavis CANTRELL. N [...] ORDERAB LES Final Result Performing Organization Address [facility] Co de Phone Number [facility] [address] [place] [phone] * (ABNORMAL) Ferritin (05/18/2024 8:57 AM EST) Ferritin 351(H) 20 - 250 ng/mL [facility] 05/18/2024 8:57 AM EST 05/18/2024 8:57 AM EST us Generic External Data Provider LAB BLOOD ORDERAB LES Final Result Performing Organization Address [facility] de Phone Number [facility] [address] [place] [phone] * Magnesium (05/18/2024 8:57 AM EST) Pathologist [facility] Magnesium 2.0 1.6 - 2.6 mg/dL [facility] 05/18/2024 8:57 AM EST 05/18/2024 8:57 AM EST Generic External Data Provider LAB BLOOD ORDERAB LES Final Result Performing Organization Address [facility] Phone Number [facility] [address] [place] [phone] * (ABNORMAL) Comprehensive Metabolic Panel (05/18/2024 8:57 AM EST) Pathologist [facility] Sodium 140 135 - 145 mmol/L [facility] Potassium 3.6 3.3 - 5.1 mmol/L [facility] Chloride 109(H) 96 - 108 mmol/L [facility] Carbon Dioxide 24 22 - 29 mmol/L [facility] Anion Gap 11(L) 12 - 20 [facility] Urea Nitrogen (BUN) 21(H) 9 - 16 mg/dL [facility] Creatinine, Serum 0.77 0.5 - 1.4 mg/dL [facility] Estimated Glomerular Filt Rate >60 [facility] Comment:Chronic Kidney Disea se: Estimated GFR < 60 mL/min/1.11z2Mqpnmg Kidney Disease: Estimated GFR < 15 mL/min/1.73m2 Glucose 85 60 - 115 mg/dL [facility] Calcium 9.4 8.4 - 10.2 mg/dL [facility] Bilirubin, Total 0.9 0.0 - 1.0 mg/dL [facility] Aspartate Amino Transferase 29 5 - 37 U/L [facility] Alanine Aminotransferase 26 0 - 40 U/L [facility] Total Protein 7.6 6.5 - 8.0 g/dL [facility] Albumin Level 4.3 3.5 - 5.0 g/dL [facility] Alkaline Phosphatase 60 39 - 117 U/L [facility] 05/18/2024 8:57 AM EST 05/18/2024 8:57 AM EST Generic External Data Provider LAB BLOOD ORDERAB LES Final Result Performing Organization Address [facility] de Phone Number [facility] [address] [place] [phone] * Prothrombin Time-INR (05/18/2024 8:57 AM EST) Pathologist [facility] Prothrombin Time 11.1 10.9 - 12.4 SEC [facility] INTERNATIONAL NORM RATIO 1.0 0.9 - 1.1 [facility] Comment:INTERNATIONAL NORMAL IZED RATIO (INR) [...] ORDERAB LES Final Result Performing Organization Address [facility] Phone Number [facility] [address] [place] [phone] * (ABNORMAL) CBC auto differential (05/18/2024 8:57 AM EST) Pathologist [facility] White Blood Count 5.1 4.8 - 10.8 X10*3/uL [facility] Red Blood Count 4.66 4.60 - 5.80 X10*6/uL [facility] Hemoglobin 14.4 14.0 - 18.0 g/dl [facility] Hematocrit 40.4(L) 42.0 - 52.0 % [facility] Mean Corpuscular Volume 86.7 80.0 - 98.0 fL [facility] Mean Corpuscular Hemoglobin 30.9 27.0 - 33.0 pg [facility] Mean Corpuscular HGB Conc 35.6 31.0 - 36.0 g/dl [facility] Red Cell Distribution Width 13.1 11.0 - 16.0 % [facility] Platelet Count 119(L) 160 - 400 X10*3/uL [facility] Mean Platelet Volume 10.2 9.4 - 12.4 fL [facility] Neutrophils Percent Auto 44.2(L) 45 - 73 % [facility] Imm Gran Pct Auto 0.2 0.0 - 0.4 % [facility] Lymphocytes Percent Auto 31.2 20 - 40 % [facility] Monocytes Percent Auto 17.0(H) 2 - 11 % [facility] Eosinophils Percent Auto 6.8(H) 0 - 4 % [facility] Basophils Percent Auto 0.6 0 - 2 % [facility] NRBC Pct Auto 0.0 0.0 - 0.2 /100WBC [facility] Neutrophils Absolute Auto 2.3 2.0 - 8.3 x10*3/uL [facility] Imm Gran Abs Auto 0.01 0.00 - 0.03 X10*3/uL [facility] Lymphocytes Absolute Auto 1.6 1.2 - 4.9 X10*3/uL [facility] Monocytes Absolute Auto 0.9 0.1 - 1.2 X10*3/uL [facility] Eosinophils Absolute Auto 0.4 0.0 - 0.4 X10*3/uL [facility] Basophils Absolute Auto 0.0 0.0 - 0.2 X10*3/uL [facility] NRBC Abs Auto 0.000 0.0 - 0.012 X10*3/uL [facility] 05/18/2024 8:57 AM EST 05/18/2024 8:57 AM EST us Generic External Data Provider LAB BLOOD ORDERAB LES Final Result Performing Organization Address City/State/[facility] Co de Phone Number [facility] [address] [place] [phone] documented in this encounter Visit Diagnoses Not on filedocumented in this encounter Additional Health Concerns Assessment Noted Time PHQ-9 Depression Total Score: 10 023 2:09 PM EST documented as of this encounter Care Teams Lead Programmer Relationship Specialty Start Date End Date Marii Mcmillan MD [address] [place] [address] PCP - General Family Medicine 07/11/21 Evelyne Green Sugar ControllerFile Machine Operator 12/09/23 documented as of this encounter
--- OUTSIDE RECORDS SUMMARY | 2024-05-25 08:17 | XMS_ITS | Encounter Summary ---
Author Organization [employer] Address [address] [facility] 7t [place] [address] Care Team Providers Care Bench Press Operator Name Role Phone Marii Mcmillan MD Primary Care Provider [phone] Reason for Visit * Reason Onset Date Comments Referral 03/12/2023 Encounter Details Date Type Department Care Team ([facility] Contact Info) Description 03/12/2023 Telephone [facility] MED & PEDS [address] [place] [address] Marii Mcmillan MD [address] [place] [address] Referral Social History Tobacco Use Types Packs/Day [...] 03/12/2023 4:18 PM EST Referral re-faxed to [facility]. * Telephone Encounter - Brooke Corral - 03/12/2023 1:49 PM EST Tc from [facility] office of [facility] gastroenterology has not received referral. documented in this encounter Plan of Treatment Upcoming Encounters Date Type Department Care Team (Late st Contact Info) Description 05/30/2024 2:00 PM EDT Telemedicine [facility] MED & PEDS [address] [place] [address] Leelee Castaneda, RN [address] [place] [address] documented as of this encounter Visit Diagnoses Not on filedocumented in this encounter Additional Health Concerns Assessment Noted Time PHQ-9 Depression Total Score: 10 023 2:09 PM EST documented as of this encounter Care Teams Bench Press Operator Relationship Specialty Start Date End Date Marii Mcmillan MD [address] [place] [address] PCP - General Family Medicine 07/11/21 Evelyne Green Money Room TellerInspector Automatic Typewriter 12/09/23 documented as of this encounter
--- OUTSIDE RECORDS SUMMARY | 2024-05-25 08:18 | XMS_ITS | Clinical Summary ---
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 Assessment & Plan (04/21/2023 1:34 PM EST): Patient with Hx of Hip Arthritis stated that medications are not improving hip pain. Therefore, will discontinue prior medications, and will be prescribing Oxycodone. Recommended to follow up with an in-person visit. Assessment & Plan (02/26/2023 3:51 PM EST): Patient that presented visit [facility] compplaints of R Hip Pain will be [...] External Data 04/29/2024 Orders Only [facility] [address] [place] [address] Star Dick MD Polyarthralgia 04/27/2024 Refill [facility] [address] [place] [address] Marii Mcmillan MD Polyarthralgia 04/21/2024 Telephone [facility] [address] [place] [address] Gildardo Huertas MD 04/18/2024 2:00 PM EST Office Visit [facility] [address] [place] [address] Gildardo Huertas MD Pre-op evaluation (Primary Dx); LBBB (left bundle branch block) 04/18/2024 Travel 03/29/2024 Refill [facility] [address] [place] [address] Marii Mcmillan MD Polyarthralgia 03/18/2024 Telephone [facility] [address] [place] [address] Marii Mcmillan MD call back/referral 03/10/2024 2:00 PM EST Clinical Support [facility] [address] [place] [address] Leelee Castaneda RN Right hip pain 03/10/2024 Travel 03/03/2024 Telephone [facility] [address] [place] [address] Marii Mcmillan MD Pre-op Exam 02/29/2024 Refill [facility] [address] [place] [address] Marii Mcmillan MD Polyarthralgia from Last 3 [...] Upcoming Encounters Date Type Department Care Team ([facility] st Contact Info) Description 05/30/2024 2:00 PM EDT Telemedicine [facility] [address] [place] [address] Leelee Castaneda, RN [address] [place] [address] Health Maintenance Due Date Last Done Comments [...] Recently Relevant to Health Maintenance Results * Vitamin B5 (Pantothenic Acid) (05/18/2024 8:57 AM EST) Vitamin B5 (Pantothenic Acid) <=40 <275 ng/mL [facility] Comment:This test was develo ped and its analyticalperformance characteristics have been determinedby [employer] [place], [place].It has not been cleared or approved by the FDA. Thisassay has been validated pursuant to the CLIAregulations and is used for clinical purposes.THIS TEST WAS PERFORMED AT:Med.ly/[employer] [id number] [place] [id number] ROCA MD,PHD 05/18/2024 8:57 AM EST 05/18/2024 8:57 AM EST Generic External Data Provider LAB BLOOD ORDERAB LES Final Result Performing Organization Address [facility] de Phone Number [facility] [address] [place] [address] [phone] * (ABNORMAL) Vitamin K1 (05/18/2024 8:57 AM EST) Vitamin K1 1813(A) 130 - 1500 pg/mL [facility] Comment:This test was develo ped and its analytical performancecharacteristics have been determined by [employer] [place], [place]. It hasnot been cleared or approved by the U.S. Food and DrugAdministration. This assay has been validated pursuantto the CLIA regulations and is used for clinicalpurposes.THIS TEST WAS PERFORMED AT:Med.[employer] [id number] [place] [id number] ROCA MD,PHD 05/18/2024 8:57 AM EST 05/18/2024 8:57 AM EST [facility] External Data Provider LAB BLOOD ORDERAB LES Final Result Performing Organization Address [facility] de Phone Number [facility] [address] [place] [phone] * (ABNORMAL) Vitamin D, 25-Hydroxy, Total, Immunoassay (05/18/2024 8:57 AM EST) Vitamin D 25-OH Total 20.4(L) >30 ng/mL [facility] Comment:Health Based Referen ce Values*< 20 ng/mL Oqnfidlwh54-98 ng/mL Insufficient> 30 ng/mL Sufficient*Mavis CANTRELL. N [...] ORDERAB LES Final Result Performing Organization Address City/[facility]/ZIP Co de Phone Number [facility] [address] [place] [phone] * Vitamin B12 (Cobalamin) and Folate Panel, Serum (05/18/2024 8:57 AM EST) Pathologist [facility] Vitamin B12 617 200 - 900 pg/mL [facility] Comment:NORMAL 200-900 PG/ML INDETERMINATE 160-199 PG/ML DEFICIENT < 160 PG/ML Folate 11.8 > or = 4.0 ng/mL [facility] Comment:Reference Values:> o r = 4.0 ng/mL< 4.0 ng/mL suggests folate deficiency Methotrexate, aminopterin and folinic acid(leucovorin) are chemotherapeutic agents whose molecularstructures are similar to folate; therefore, the Architectfolate assay cannot be used for patients using these drugs. 05/18/2024 8:57 AM EST 05/18/2024 8:57 AM EST us Generic External Data Provider LAB BLOOD ORDERAB LES Final Result [facility] [address] [place] [address] [phone] * (ABNORMAL) CBC auto differential (05/18/2024 8:57 AM EST) Only the most recent of2 resultswithin the time period is included. White Blood Count 5.1 4.8 - 10.8 X10*3/uL [facility] Red Blood Count 4.66 4.60 - 5.80 X10*6/uL [facility] Hemoglobin 14.4 14.0 - 18.0 g/dl [facility] Hematocrit 40.4(L) 42.0 - 52.0 % [facility] Mean Corpuscular Volume 86.7 80.0 - 98.0 fL [facility] Mean Corpuscular Hemoglobin 30.9 27.0 - 33.0 pg [facility] Mean Corpuscular HGB Conc 35.6 31.0 - 36.0 g/dl [facility] Red Cell Distribution Width 13.1 11.0 - 16.0 % [facility] Platelet Count 119(L) 160 - 400 X10*3/uL [facility] Mean Platelet Volume 10.2 9.4 - 12.4 fL [facility] Neutrophils Percent Auto 44.2(L) 45 - 73 % [facility] Imm Gran Pct Auto 0.2 0.0 - 0.4 % [facility] Lymphocytes Percent Auto 31.2 20 - 40 % [facility] Monocytes Percent Auto 17.0(H) 2 - 11 % [facility] Eosinophils Percent Auto 6.8(H) 0 - 4 % [facility] Basophils Percent Auto 0.6 0 - 2 % [facility] NRBC Pct Auto 0.0 0.0 - 0.2 /100WBC [facility] Neutrophils Absolute Auto 2.3 2.0 - 8.3 x10*3/uL [facility] Imm Gran Abs Auto 0.01 0.00 - 0.03 X10*3/uL [facility] Lymphocytes Absolute Auto 1.6 1.2 - 4.9 X10*3/uL [facility] Monocytes Absolute Auto 0.9 0.1 - 1.2 X10*3/uL [facility] Eosinophils Absolute Auto 0.4 0.0 - 0.4 X10*3/uL [facility] Basophils Absolute Auto 0.0 0.0 - 0.2 X10*3/uL [facility] NRBC Abs Auto 0.000 0.0 - 0.012 X10*3/uL [facility] 05/18/2024 8:57 AM EST 05/18/2024 8:57 AM EST Generic External Data Provider LAB BLOOD ORDERAB LES Final Result Performing Organization Address [facility] de Phone Number [facility] [address] [place] [phone] * Prothrombin Time-INR (05/18/2024 8:57 AM EST) Only the most recent of2 resultswithin the time period is included. Prothrombin Time 11.1 10.9 - 12.4 SEC [facility] INTERNATIONAL NORM RATIO 1.0 0.9 - 1.1 [facility] Comment:INTERNATIONAL NORMAL IZED RATIO (INR) [...] ORDERAB LES Final Result Performing Organization Address [facility] Co de Phone Number [facility] [address] [place] [phone] * Vitamin E (Tocopherol) (05/18/2024 8:57 AM EST) [facility] Vitamin E, Alpha-Tocopherol 7.4 5.7 - 19.9 mg/L [facility] Comment:Levels of alpha-toco pherol <5 mg/L are consistentwith Vitamin E deficiency in adults. Vitamin E, Efjg-Lvetf-Ascrbkyxnb <1.0 <=4.3 mg/L [facility] Comment:Vitamin supplementat ion within 24 hours prior toblood draw may affect the accuracy of the results.This test was developed and its analytical performancecharacteristics have been determined by [employer] [place], [place]. It hasnot been cleared or approved by the U.S. Food and DrugAdministration. This assay has been validated pursuantto the CLIA regulations and is used for clinicalpurposes.THIS TEST WAS PERFORMED AT:Med.ly/[facility] [place] [id number] ROCA MD,PHD 05/18/2024 8:57 AM EST 05/18/2024 8:57 AM EST Generic External Data Provider LAB BLOOD ORDERAB LES Final Result Performing Organization Address City/[facility]/ZIP Co de Phone Number [facility] [address] [place] [phone] * Magnesium (05/18/2024 8:57 AM EST) [facility] Magnesium 2.0 1.6 - 2.6 mg/dL [facility] 05/18/2024 8:57 AM EST 05/18/2024 8:57 AM EST Generic External Data Provider LAB BLOOD ORDERAB LES Final Result Performing Organization Address [facility] Co de Phone Number [facility] [address] [place] [phone] * (ABNORMAL) Ferritin (05/18/2024 8:57 AM EST) Ferritin 351(H) 20 - 250 ng/mL [facility] 05/18/2024 8:57 AM EST 05/18/2024 8:57 AM EST us Generic External Data Provider LAB BLOOD ORDERAB LES Final Result [facility] [address] [place] [phone] [phone] * (ABNORMAL) Comprehensive Metabolic Panel (05/18/2024 8:57 AM EST) Only the most recent of2 resultswithin the time period is included. Sodium 140 135 - 145 mmol/L [facility] Potassium 3.6 3.3 - 5.1 mmol/L [facility] Chloride 109(H) 96 - 108 mmol/L [facility] Carbon Dioxide 24 22 - 29 mmol/L [facility] Anion Gap 11(L) 12 - 20 [facility] Urea Nitrogen (BUN) 21(H) 9 - 16 mg/dL [facility] Creatinine, Serum 0.77 0.5 - 1.4 mg/dL [facility] Estimated Glomerular Filt Rate >60 [facility] Comment:Chronic Kidney Disea se: Estimated GFR < 60 mL/min/1.12u6Uhzyyg Kidney Disease: Estimated GFR < 15 mL/min/1.73m2 Glucose 85 60 - 115 mg/dL [facility] Calcium 9.4 8.4 - 10.2 mg/dL [facility] Bilirubin, Total 0.9 0.0 - 1.0 mg/dL [facility] Aspartate Amino Transferase 29 5 - 37 U/L [facility] Alanine Aminotransferase 26 0 - 40 U/L [facility] Total Protein 7.6 6.5 - 8.0 g/dL [facility] Albumin Level 4.3 3.5 - 5.0 g/dL [facility] Alkaline Phosphatase 60 39 - 117 U/L [facility] 05/18/2024 8:57 AM EST 05/18/2024 8:57 AM EST Generic External Data Provider LAB BLOOD ORDERAB LES Final Result Performing Organization Address [facility] Phone Number [facility] [address] [place] [phone] * MRSA Nasal Screen (05/09/2024 1:00 PM EST) MRSA Nasal PCR NEGATIVE Negative [facility] SA Nasal PCR NEGATIVE Negative [facility] MRSA Interpretation SEE NOTE [facility] Comment:MRSA target DNA not detected; SA target DNA not detected.A MRSA NEGATIVE, SA NEGATIVE test result does not precludeMRSA or SA nasal colonization. 05/09/2024 1:00 PM EST 05/09/2024 1:18 PM EST Generic External Data Provider LAB MICROBIOLOGY - GENERAL ORDERABLES Final Result Performing Organization Address [facility] Phone Number [facility] [address] [place] [phone] * ECG 12 lead (04/18/2024 4:12 PM EST) Narrative Gildardo Huertas MD - 04/18/2024 4:12 PM EST HR: 65 bpm. [place] 18. ??LBBB. ??High lateral and lateral repolarization disturbance. ??Normal sinus rhythm us Gildardo Huertas MD ECG ORDERABLES Final Resul t * TSH W/Reflex to FT4 (04/18/2024 3:15 PM EST) TSH reflex Free T4 2.40 0.32 - 4.0 uIU/mL [facility] Blood Venous blood specimen / Unknown 04/18/2024 3:15 PM EST 04/18/2024 5:39 PM EST us Gildardo Huertas MD LAB BLOOD ORDERABLES Final Result Performing Organization Address [facility]/State/ZIP Co de Phone Number [facility] [address] [place] [address] [phone] * HIV-1/2 Antigen and Antibodies, Fourth Generation, with Reflexes (04/18/2024 3:15 PM EST) HIV AB/AG Nonreactive Nonreactive [facility] Comment:HIV-1 p24 Ag and/or HIV-1/HIV-2 Ab not detected.A test result that is nonreactive does not exclude thepossibility of exposure to or infection with HIV-1 and/orHIV-2. Nonreactive results in this assay for individualswith prior exposure to HIV-1 and/or HIV-2 may be due toantigen and antibody levels that are below the limit ofdetection of this assay.The [employer] HIV Ag/Ab Combo assay result andsupplemental assay results should be interpreted inconjunction with the patient's clinical presentation,history and other laboratory results. If the results areinconsistent with clinical evidence, additional testing issuggested to confirm the result. Blood Venous blood specimen / Unknown 04/18/2024 3:15 PM EST 04/18/2024 5:39 PM EST us Gildardo Huertas MD LAB BLOOD ORDERABLES Final Result Performing Organization Address City/[facility] Co de Phone Number [facility] [address] [place] [phone] * Partial Thromboplastin Time, Activated (APTT) (04/18/2024 3:15 PM EST) Partial Thromboplastin Time 34.9 26.0 - 36.8 SEC [facility] Comment:For information rega rding the monitoring of direct thrombininhibitors, please refer to Pharmacy. Blood Venous blood specimen / Unknown 04/18/2024 3:15 PM EST 04/18/2024 5:39 PM EST us Gildardo Huertas MD LAB BLOOD ORDERABLES Final Result [facility] [address] [place] [phone] * Prealbumin (04/18/2024 3:15 PM EST) Pathologist [facility] Prealbumin 22.0 20 - 40 mg/dL [facility] Blood Venous blood specimen / Unknown 04/18/2024 3:15 PM EST 04/18/2024 5:39 PM EST us Gildardo Huertas MD LAB BLOOD ORDERABLES Final Result Performing Organization Address [facility]/ZIP Co de Phone Number [facility] [address] [place] [phone] * POCT MITCHELL-14 Urine Drug Screen (03/10/2024 2:25 PM EST) [facility] THC Positive Oxycodone Screen, Urine Positive Urine Urine specimen obtained by clean catch procedure / Unknown 03/10/2024 2:25 PM EST Narrative Leelee Castaneda RN - 03/10/2024 2:25 PM EST Lot# [id number] Exp: 02-19-25 us Marii Mcmillan MD POINT OF CARE TEST ENTER/EDIT ORDERABLES Final Result * (ABNORMAL) LIPID PANEL, STANDARD (07/26/2021 10:58 AM EDT) [facility] Chol/HDLC Ratio 3.3 <5.0 (calc) [facility] ?? LDL-C is now calculated using the Fortunato-Joseph ?? calculation, which is a validated novel method providing ?? better accuracy than the Friedewald equation in the ?? estimation of LDL-C. ?? Fortunato SS et al. ISHAN. 2013;310(19): 6263-9716 ?? (http://[employer]/faq/YSF258) Non-HDL Cholesterol 124 <130 mg/dL (calc) [facility] Comment: For patients with diabetes plus 1 major ASCVD risk ?? factor, treating to a non-HDL-C goal of <100 mg/dL ?? (LDL-C of <70 mg/dL) is considered a therapeutic ?? option. Triglycerides 102 <150 mg/dL [facility] 07/26/2021 10:5 8 AM EDT us Marii Mcmillan MD LAB BLOOD ORDERABLES Final Re sult [facility] [address] from Last 3 Months or Most Recently Relevant to Health Maintenance Insurance [employer] Care Teams Broadband Technician Relationship Specialty Start Date End Date Marii Mcmillan MD [address] [place] [address] PCP - General Family Medicine 07/11/21 Evelyne Green Asbestos Siding MechanicGraduate Rn 12/09/23
--- OUTSIDE RECORDS SUMMARY | 2024-05-25 08:18 | XMS_ITS | Encounter Summary ---
Author Organization [employer] Address [address] [facility] 7t [place] [address] Care Team Providers Care Floor Coverings Salesperson Name Role Phone Marii Mcmillan MD Primary Care Provider [phone] Reason for Visit * Reason Onset Date Comments Referral 05/20/2022 Encounter Details Date Type Department Care Team ([facility] st Contact Info) Description 05/20/2022 Telephone [facility] MED & PEDS [address] [place] [address] Marii Mcmillan MD [address] [place] [address] Referral Social History Tobacco Use Types Packs/Day [...] made on 02/04/2022. Please contact pt at [phone] documented in this encounter Plan of Treatment Upcoming Encounters Date Type Department Care Team ([facility] st Contact Info) Description 05/30/2024 2:00 PM EDT Telemedicine [facility] MED [facility] PEDS [address] [place] [address] Leelee Castaneda, RN [address] [place] [address] documented as of this encounter Visit Diagnoses Not on filedocumented in this encounter Care Teams Floor Coverings Salesperson Relationship Specialty Start Date End Date Marii Mcmillan MD [address] [place] [address] PCP - General Family Medicine 07/11/21 Evelyne Green Bone Char Kiln TenderSpeech Language Pathologist 12/09/23 documented as of this encounter
--- OUTSIDE RECORDS SUMMARY | 2024-05-25 08:18 | XMS_ITS | Encounter Summary ---
Author Organization [employer] Address [address] [facility] 7t [place] [address] Care Team Providers Care Yarn Tester Name Role Phone Marii Mcmillan MD Primary Care Provider [phone] Encounter Details Date Type Department Care Team [...] 05/30/2024 2:00 PM EDT Telemedicine [facility] [address] [place] [address] Leelee Castaneda, RN [address] [place] [address] documented as of this encounter Procedures Procedure Name Priority Date/Time Associated Diagnosis Comments MRSA NASAL SCREEN Routine 05/09/2024 1:0 0 PM EST documented in this encounter Results * MRSA Nasal Screen (05/09/2024 1:00 PM EST) MRSA Nasal PCR NEGATIVE Negative [facility] SA Nasal PCR NEGATIVE Negative [facility] MRSA Interpretation SEE NOTE [facility] Comment:MRSA target DNA not detected; SA target DNA not detected.A MRSA NEGATIVE, SA NEGATIVE test result does not precludeMRSA or SA nasal colonization. 05/09/2024 1:00 PM EST 05/09/2024 1:18 PM EST us Generic External Data Provider LAB MICROBIOLOGY - GENERAL ORDERABLES Final Result [facility] [address] [place] [phone] [phone] documented in this encounter Visit Diagnoses Not on filedocumented in this encounter Additional Health Concerns Assessment Noted Time PHQ-9 Depression Total Score: 10 023 2:09 PM EST documented as of this encounter Care Teams Yarn Tester Relationship Specialty Start Date End Date Marii Mcmillan MD [address] [place] [address] PCP - General Family Medicine 07/11/21 Evelyne Green Home Support WorkerIndustrial Recruiter 12/09/23 documented as of this encounter
--- OUTSIDE RECORDS SUMMARY | 2024-05-25 08:18 | XMS_ITS | Encounter Summary ---
Author Organization [employer] Address [address] [facility] [address] 7[address] [place] [address] Care Team Providers Care Supervisor Sewing Department Name Role Phone Marii Mcmillan MD Primary Care Provider [phone] Reason for Visit * Reason Onset Date Comments PT1 05/15/2023 Encounter Details Date Type Department Care Team ([facility] st Contact Info) Description 05/15/2023 Telephone [facility] [address] [place] [address] Marii Mcmillan MD [address] [place] [address] PT1 Social History Tobacco Use Types Packs/Day [...] ( x monthly, weekly, daily) Address: [address] [place] [address] Facility[facility] Wheel Chair: NO Resistor Inspector Needed: NO Address and phone confirmed by Evelyne CHAWLA documented in this encounter Plan of Treatment Upcoming Encounters Date Type Department Care Team (Late st Contact Info) Description 05/30/2024 2:00 PM EDT Telemedicine [facility] MED & PEDS [address] [place] [address] Leelee Castaneda, REGINA [address] [place] [address] documented as of this encounter Visit Diagnoses Not on filedocumented in this encounter Additional Health Concerns Assessment Noted Time PHQ-9 Depression Total Score: 10 023 2:09 PM EST documented as of this encounter Care Teams Supervisor Sewing Department Relationship Specialty Start Date End Date Marii Mcmillan MD [address] [place] [address] PCP - General Family Medicine 07/11/21 Evelyne Green Refrigeration MechanicAssistant Dean 12/09/23 documented as of this encounter
--- OUTSIDE RECORDS SUMMARY | 2024-05-25 08:18 | XMS_ITS | Encounter Summary ---
Author Organization [employer] Address [address] [place] [address] 7t [place] [address] Care Team Providers Care Pin Maker Name Role Phone Marii Mcmillan MD Primary Care Provider [phone] Reason for Visit * Reason Comments Med Refill Encounter Details Date Type Department Care Team (Late Contact Info) Description 04/08/2022 Refill [facility] MED & PEDS [address] [place] [address] Marii Mcmillan MD [address] [place] [address] Vitamin deficiency, unspecified Social History Tobacco Use [...] 2:00 PM EDT Telemedicine [facility] MED & PEDS [address] [place] [address] Leelee Castaneda RN [address] [place] [address] documented as of this encounter Visit Diagnoses Diagnosis Vitamin deficiency, unspecified documented in this encounter Care Teams Pin Maker Relationship Specialty Start Date End Date Marii Mcmillan MD [address] [place] [address] PCP - General Family Medicine 07/11/21 Evelyne Green Automobile Rental AgentTunnel Kiln Operator 12/09/23 documented as of this encounter
--- OUTSIDE RECORDS SUMMARY | 2024-05-25 08:19 | XMS_ITS | Encounter Summary ---
Author Organization [employer] Address [address] [facility] 7t [place] [address] Care Team Providers Care Truck Headlight Assembler Name Role Phone Marii Mcmillan MD Primary Care Provider [phone] Reason for Visit * Reason Onset Date Comments CHART PREP 01/26/2024 Encounter Details Date Type Department Care Team ([facility] Contact Info) Description 01/26/2024 Telephone [facility] MED & PEDS [address] [place] [address] Marii Mcmillan MD [address] [place] [address] CHART PREP Social History Tobacco Use Types [...] - [facility] [address] [place] [address] Leelee Castaneda, RN [address] [place] [address] documented as of this encounter Visit Diagnoses Diagnosis Polyarthralgia Pain in joint, multiple sites documented in this encounter Additional Health Concerns Assessment Noted Time PHQ-9 Depression Total Score: 10 023 2:09 PM EST documented as of this encounter Care Teams Truck Headlight Assembler Relationship Specialty Start Date End Date Marii Mcmillan MD [address] [place] [address] PCP - General Family Medicine 07/11/21 Evelyne Green Software Engineer MobileLogistical Engineer 12/09/23 documented as of this encounter
--- OUTSIDE RECORDS SUMMARY | 2024-05-25 08:19 | XMS_ITS | Encounter Summary ---
Author Organization [employer] Address [address] [facility] [address] [place] [address] Care Team Providers Care Sock Knitting Machine Operator Name Role Phone Marii Mcmillan MD Primary Care Provider [phone] Reason for Visit * Reason Onset Date Comments Appointment Request 01/11/2024 Encounter Details Date Type Department Care Team ([facility] Contact Info) Description 01/11/2024 Telephone [facility] MEDICINE [address] [place] [address] Marii Mcmillan MD 505 [place] [address] Appointment Request Social History Tobacco Use Types [...] from pt calling in regards to tomorrows CHAIN MORTISER OPERATOR visit stating he is feeling sick and is wondering ifhe can change appt to a telephone visit. Please contact pt at [phone]. documented in this encounter Plan of Treatment Upcoming Encounters Date Type Department Care Team (Late st Contact Info) Description 05/30/2024 2:00 PM EDT Telemedicine [facility] MED & PEDS [address] [place] [address] Leelee Castaneda, RN 505 [place] [address] documented as of this encounter Visit Diagnoses Not on filedocumented in this encounter Additional Health Concerns Assessment Noted Time PHQ-9 Depression Total Score: 10 023 2:09 PM EST documented as of this encounter Care Teams Sock Knitting Machine Operator Relationship Specialty Start Date End Date Marii Mcmillan MD [address] [place] [address] PCP - General Family Medicine 07/11/21 Evelyne Green Sign Hanger SupervisorSales Support Associate 12/09/23 documented as of this encounter
--- OUTSIDE RECORDS SUMMARY | 2024-05-25 08:19 | XMS_ITS | Encounter Summary ---
Author Organization [employer] Address [address] [facility] 7t [place] [address] Care Team Providers Care Senior Production Supervisor Name Role Phone Marii Mcmillan MD Primary Care Provider [phone] Encounter Details Date Type Department Care Team (Late st Contact Info) Description 04/29/2024 Orders Only [facility] CHC MED & PEDS [address] [place] [address] Star Dick MD 505 [place] [address] Polyarthralgia Social History Tobacco Use Types Packs/Day [...] [facility] MED & PEDS [address] [place] [address] Leelee Castaneda, RN 505 [place] [address] documented as of this encounter Visit Diagnoses Diagnosis Polyarthralgia Pain in joint, multiple sites documented in this encounter Additional Health Concerns Assessment Noted Time PHQ-9 Depression Total Score: 10 023 2:09 PM EST documented as of this encounter Care Teams Senior Production Supervisor Relationship Specialty Start Date End Date Marii Mcmillan MD 230 [place] [address] PCP - General Family Medicine 07/11/21 Evelyne Green Roller HandDoor Frame Builder 12/09/23 documented as of this encounter
--- OUTSIDE RECORDS SUMMARY | 2024-05-25 08:19 | XMS_ITS | Encounter Summary ---
Author Organization [employer] Address [address] [facility] 7t [place] [address] Care Team Providers Care Superintendent Renting Managing Name Role Phone Marii Mcmillan MD Primary Care Provider [phone] Reason for Visit * Reason Comments Med Change Request Encounter Details Date Type Department Care Team ([facility] Contact Info) Description 05/27/2022 Refill [facility] CHC MED & PEDS 505 [place] [address] Marii Mcmillan MD 505 [place] [address] Takes dietary supplements Social History Tobacco Use [...] [facility] [address] [place] [address] Leelee Castaneda, RN 505 [place] [address] documented as of this encounter Visit Diagnoses Diagnosis Takes dietary supplements documented in this encounter Additional Health Concerns Assessment Noted Time PHQ-9 Depression Total Score: 10 023 2:09 PM EST documented as of this encounter Care Teams Superintendent Renting Managing Relationship Specialty Start Date End Date Marii Mcmillan MD 230 [place] [address] PCP - General Family Medicine 07/11/21 Evelyne Green Still Pump OperatorWood Buffer 12/09/23 documented as of this encounter
--- OUTSIDE RECORDS SUMMARY | 2024-05-25 08:19 | XMS_ITS | Encounter Summary ---
Author Organization [employer] Address [address] [facility] 7t [place] [address] Care Team Providers Care Mill Roll Rewinder Name Role Phone Marii Mcmillan MD Primary Care Provider [phone] Reason for Visit * Reason Onset Date Comments Med Refill 01/28/2024 Encounter Details Date Type Department Care Team ([facility] st Contact Info) Description 01/28/2024 Telephone [facility] MEDICINE 230 [place] [address] Marii Mcmillan MD 505 [place] [address] Med Refill Social History Tobacco Use Types [...] 5-325 MG tablet To be sent to: [facility]/pharmacy #[id number] MARY CARIAS - [address] [place] [address] documented in this encounter Plan of Treatment Upcoming Encounters Date Type Department Care Team (Late st Contact Info) Description 05/30/2024 2:00 PM EDT Telemedicine [facility] CHC MED & PEDS 505 [place] [address] Leelee Castaneda, RN 505 [place] [address] documented as of this encounter Visit Diagnoses Not on filedocumented in this encounter Additional Health Concerns Assessment Noted Time PHQ-9 Depression Total Score: 10 023 2:09 PM EST documented as of this encounter Care Teams Mill Roll Rewinder Relationship Specialty Start Date End Date Marii Mcmillan MD 230 [place] [address] PCP - General Family Medicine 07/11/21 Evelyne Green Fuel Oil ClerkDelivery Driver 12/09/23 documented as of this encounter
--- OUTSIDE RECORDS SUMMARY | 2024-05-25 08:19 | XMS_ITS | Encounter Summary ---
Author Organization [employer] Address [address] [facility] 7t [place] [address] Care Team Providers Care Intelligent Systems Engineer Name Role Phone Marii Mcmillan MD Primary Care Provider [phone] Reason for Visit * Reason Onset Date Comments Med Refill 04/27/2024 Encounter Details Date Type Department Care Team (Late st Contact Info) Description 04/27/2024 Refill [facility] MEDICINE 230 [place] [address] Marii Mcmillan MD 505 [place] [address] Polyarthralgia Social History Tobacco Use Types Packs/Day [...] 5-325 MG tablet To be sent to: [facility]/pharmacy #[id number] MARY CARIAS - [address] [facility] documented in this encounter Plan of Treatment Upcoming Encounters Date Type Department Care Team (Late st Contact Info) Description 05/30/2024 2:00 PM EDT Telemedicine [facility] MED & PEDS 505 [place] [address] Leelee Castaneda, RN 505 [place] [address] documented as of this encounter Visit Diagnoses Diagnosis Polyarthralgia Pain in joint, multiple sites documented in this encounter Additional Health Concerns Assessment Noted Time PHQ-9 Depression Total Score: 10 023 2:09 PM EST documented as of this encounter Care Teams Intelligent Systems Engineer Relationship Specialty Start Date End Date Marii Mcmillan MD 230 [place] [address] PCP - General Family Medicine 07/11/21 Evelyne Green Licensed Practical Nurse InstructorContracts Administrator 12/09/23 documented as of this encounter
--- OUTSIDE RECORDS SUMMARY | 2024-05-25 08:19 | XMS_ITS | Encounter Summary ---
Author Organization [employer] Address [address] [place] [address] 7t [place] [address] Care Team Providers Care Gig Tender Name Role Phone Marii Mcmillan MD Primary Care Provider [phone] Reason for Referral * Imaging (STAT) - Closed Specialty Diagnoses / Procedures Referred By Contac t Referred To Contact Radiology Diagnoses Mass of right inguinal region Procedures Us Pelvis complete Gildardo Huertas MD 505 [place] [address] Phone: tel: fax: [address] Phone: tel: fax: Referral ID Status Reason Start Date Expiration Date Visits Re quested Visits Authorized [id number] Closed 09/18/2022 09/18/2023 1 1 Encounter Details Date Type Department Care Team (Late st Contact Info) Description 09/18/2022 Orders Only [facility] CHC MED & PEDS 505 [place] [address] Gildardo Huertas MD 505 [place], [place] [phone] Mass of right inguinal region (Primary Dx) [...] Upcoming Encounters Date Type Department Care Team ([facility] st Contact Info) Description 05/30/2024 2:00 PM EDT Telemedicine [facility] MED & PEDS [address] [place] [address] Leelee Castaneda, RN [address] [place] [address] Scheduled Orders Name Type Priority Associated Diagnoses [...] EDT Narrative 09/25/2022 10:43 AM EDT ? [facility] ?[address] ?[place] [address] ? Ultrasound Report ? Signed ? Patient: Grimm,Manuel D ?MR#: [id number] ?? [id number] ? : 1960 ?Acct:[id number] ? Age/Sex: 62 / M ?ADM Date: 07/06/23 ? Loc: HO.US ? Attending Dr: Marii Mcmillan MD ? Ordering Physician: Marii Mcmillan MD ?? Date of Service: 09/18/22 ?? Procedure(s): US pelvic limited ?? Accession Number(s): [id number] ? cc: Marii Mcmillan MD ? EXAMINATION: [...] 1039 ? DD/ 1503 ? TD/TT: ? Real Estate Assessor: ? Procedure Note [place], Image - 09/25/2022 [place] [address] Ultrasound Report Signed Patient: Manuel Grimm DMR#: [id number] : 1Acct:[id number] Age/Sex: 62 / MADM Date: 09/18/22 Loc: HO.US Attending Dr: Marii Mcmillan MD Ordering Physician: Marii Mcmillan MD Date of Service: 09/18/22 Procedure(s): US pelvic limited Accession Number(s): [id number] cc: Marii Mcmillan MD EXAMINATION: US RIGHT [...] in OV> 09/25/22 1039 DD/ 1503 TD/TT: Real Estate Assessor: [facility] External Provider IMG US PROCEDURES Final Result documented in this encounter Visit Diagnoses Diagnosis Mass of right inguinal region- Primary documented in this encounter Additional Health Concerns Assessment Noted Time PHQ-9 Depression Total Score: 10 023 2:09 PM EST documented as of this encounter Care Teams Gig Tender Relationship Specialty Start Date End Date Marii Mcmillan MD 230 [place] [address] PCP - General Family Medicine 07/11/21 Evelyen Green Display ManagerDial Refinisher 12/09/23 documented as of this encounter
--- OUTSIDE RECORDS SUMMARY | 2024-05-25 08:19 | XMS_ITS | Encounter Summary ---
Author Organization [employer] Address [address] [place] [address] Care Team Providers Care Car Lubricator Name Role Phone Marii Mcmillan MD Primary Care Provider [phone] Encounter Details Date Type Department Care Team (Late st Contact Info) Description 06/22/2023 Telephone [facility] MEDICINE 230 [place] [address] Marii Mcmillan MD [address] [place] [address] Social History Tobacco Use Types Packs/Day Years [...] [facility] MED & PEDS 505 [place] [address] Leelee Castaneda, RN 505 [place] [address] documented as of this encounter Visit Diagnoses Not on filedocumented in this encounter Additional Health Concerns Assessment Noted Time PHQ-9 Depression Total Score: 10 023 2:09 PM EST documented as of this encounter Care Teams Car Lubricator Relationship Specialty Start Date End Date Marii Mcmillan MD 230 [place] [address] PCP - General Family Medicine 07/11/21 Evelyne Green Devops ArchitectDirector Experimental Medicine 12/09/23 documented as of this encounter
--- OUTSIDE RECORDS SUMMARY | 2024-05-25 08:19 | XMS_ITS | Encounter Summary ---
Author Organization [employer] Address [address] [facility] 7t [place] [address] Care Team Providers Care Mechanical Engineer Name Role Phone Marii Mcmillan MD Primary Care Provider [phone] Reason for Visit * Reason Comments Med Change Request Encounter Details Date Type Department Care Team ([facility] Contact Info) Description 05/29/2022 Refill [facility] CHC MED & PEDS [address] [place] [address] Marii Mcmillan MD 505 [place] [address] Takes dietary supplements Social History Tobacco Use [...] Info) Description 05/30/2024 2:00 PM EDT Telemedicine [facility] CHC MED & PEDS [address] [place] [address] Leelee Castaneda, RN 505 [place] [address] documented as of this encounter Visit Diagnoses Diagnosis Takes dietary supplements documented in this encounter Additional Health Concerns Assessment Noted Time PHQ-9 Depression Total Score: 10 023 2:09 PM EST documented as of this encounter Care Teams Mechanical Engineer Relationship Specialty Start Date End Date Marii Mcmillan MD 230 [place] [address] PCP - General Family Medicine 07/11/21 Evelyne Green Director Of Solutions ArchitectureEnvironmental Protection Officer 12/09/23 documented as of this encounter
--- OUTSIDE RECORDS SUMMARY | 2024-05-25 08:20 | XMS_ITS | Encounter Summary ---
Author Organization [employer] Address [address] [facility] 7t [place] [address] Care Team Providers Care Tree Faller Name Role Phone Marii Mcmillan MD Primary Care Provider [phone] Reason for Visit * Reason Onset Date Comments Med Change Request 11/04/2023 Encounter Details Date Type Department Care Team ([facility] Contact Info) Description 11/04/2023 Telephone [facility] MEDICINE 230 [place] [address] Marii Mcmillan MD 505 [place] [address] Med Change Request Social History Tobacco Use [...] 05/30/2024 2:00 PM EDT Telemedicine [facility] CHC MED & PEDS 505 [place] [address] Leelee Castaneda, RN 505 [place] [address] documented as of this encounter Visit Diagnoses Not on filedocumented in this encounter Additional Health Concerns Assessment Noted Time PHQ-9 Depression Total Score: 10 023 2:09 PM EST documented as of this encounter Care Teams Tree Faller Relationship Specialty Start Date End Date Marii Mcmillan MD 230 [place] [address] PCP - General Family Medicine 07/11/21 Evelyne Green Home Theater Experience ExpertEnamel Finisher 12/09/23 documented as of this encounter
== END ==
LOC: HO.CARD 08:09
PROVIDERS: PCP Family Medicine; Visit Provider Internal Medicine
DX: Z01.810 Encounter for preprocedural cardiovascular examination (principal)
CPT/HCPCS: 93306

== ENCOUNTER → 2024-05-25 08:15 | Outpatient (BNV) | payer MEDICAID, SELFPAY | PROVIDERS: PCP Family Medicine; Visit Provider Internal Medicine | DX: I44.7 Left bundle-branch block, unspecified (principal); Z01.810 Encounter for preprocedural cardiovascular examination | CPT/HCPCS: 93306 ==

== ENCOUNTER → 2024-05-26 09:02 | Outpatient (REF) | payer MEDICAID, SELFPAY ==
--- NOTE | 2024-05-26 09:04 | CA_ITS ---
Acquisition Time: 2024-05-26 09:06:41 Total Exercise Time: 00:02:00 Test Indications: CP, AFIB, LBBB Medications: SEE H&P Protocol: LEXISCAN Max HR: 96 BPM 61% of Pred: 157 BPM Max BP: 120/70 mmHG Max Work Load: 1.0 METS Pharmacological stress test with Lexiscan while pt kicks legs in chair, with reports of SOB, abdominal discomfort and feeling of blood gushing in chest, without any arrythmias, with normotensive response to injection. Nondiagnostic EKG for ischemia. in recovery, pt feeling back to baseline. Nuclear images pending. Test reviewed with Dr. Toussaint. Referred By: Hermes Toussaint Electronically Signed By: Dale Valladares
== END ==
LOC: HO.CARD 09:02
PROVIDERS: PCP Family Medicine; Visit Provider Internal Medicine
DX: Z01.810 Encounter for preprocedural cardiovascular examination (principal); R07.2 Precordial pain; I20.9 Angina pectoris, unspecified
CPT/HCPCS: 78452; 93017; A9500; J0280; J2785

== ENCOUNTER → 2024-05-26 09:04 | Outpatient (BNV) | payer MEDICAID, SELFPAY | PROVIDERS: PCP Family Medicine | DX: R06.02 Shortness of breath (principal) | CPT/HCPCS: 78452; 93016; 93018 ==

== ENCOUNTER 2024-06-02 08:37 | Outpatient (REF) | payer MEDICAID, SELFPAY ==
--- NOTE | ~2024-06-02 | XR_ITS ---
EXAMINATION: XR HIP 2 OR MORE VIEWS RIGHT HISTORY: M25.551 - Pain in right hip COMPARISON: Comparison is made with the prior examination dated 07/13/2023. FINDINGS: A single AP view of the pelvis and two views of the right hip are submitted. Osseous mineralization is normal. There is no fracture or dislocation. There is mild joint space narrowing. The soft tissues are unremarkable. XR/XR hip RT min 2V IMPRESSION: Mild joint space narrowing. Electronically signed by: Bruno Navarro MD 06/02/2024 03:54 PM EDT
== END 2024-06-02 08:38 | disposition home or self-care (01) ==
LOC: HO.HOSX 08:37
PROVIDERS: Visit Provider Physician Assistant
DX: Z01.818 Encounter for other preprocedural examination (principal); M16.11 Unilateral primary osteoarthritis, right hip; M25.551 Pain in right hip
CPT/HCPCS: 73502; 99212

== ENCOUNTER 2024-06-02 09:22 | Outpatient (AMB) | payer MEDICAID, SELFPAY ==
--- NOTE | 2024-06-02 09:30 | MHC.OFFVIS ---
Vital Signs 06/02/24 09:38 Height 5 ft 5 in Weight 134 lb BMI 22.3 Intake Visit Reasons: Pre-Op: R KAL w/NE 06/07/24 Intake Note: Manuel is a 63 year old male who presents today for a preoperative RT KAL, DOS 06/07/24. Pain management agreement reviewed and signed. Allergies NSAIDS (Non-Steroidal Anti-Inflamma Allergy (Severe, Verified 06/02/24 09:39) advised not to take due to bleeding Penicillins [PENICILLINS] Allergy (Severe, Verified 06/02/24 09:39) Rash, hives aspirin [ASA] Allergy (Unknown, Verified 06/02/24 09:39) Unknown but cannot take naproxen [NAPROXEN] Allergy (Unknown, Verified 06/02/24 09:39) ABDOMINAL PAIN, ABD PAIN tuberculin, purified protein deriva [TB TEST] Allergy (Unknown, Verified 06/02/24 09:39) hx TB as a child acetaminophen [From TYLENOL] Adverse Reaction (Unknown, Verified 06/02/24 09:39) Abdominal Pain mesalamine [From ASACOL] Adverse Reaction (Unknown, Verified 06/02/24 09:39) worsening abdominal pain pseudoephedrine [From SUDAFED] Adverse Reaction (Unknown, Verified 06/02/24 09:39) advised not to take ibuprofen [From Motrin] Adverse Reaction (Verified 06/02/24 09:39) Abdominal Pain Medication List - Last Reconciled 06/02/24 by Magnus Baltazar PA-C atorvastatin (Lipitor) 1 tab PO DAILY hydrochlorothiazide 1 tab PO DAILY oxycodone-acetaminophen 5-325 mg 1 tab PO Q8H PRN phytonadione (vitamin K1) 100 mcg PO DAILY potassium citrate ER 10 mEq PO DAILY [Raised toilet seat duration - 99 days] tamsulosin 1 cap PO DAILY turmeric root-clementina root ext 150-25 mg 1 tab PO DAILY walker Folding Front wheeled walker duration 99 days HPI Comments Details: Mr Grimm presents to the office today for preop visit. He is scheduled for right total hip arthroplasty with Dr. Hendrix. He continues to have ongoing pain and difficulty with ambulation in the right hip, which is affecting his quality of life; therefore, he has elected to move forward with surgery. [facility] Medical History (Updated 05/23/24 @ 13:44 by Hermes Toussaint MD) Wears dentures Legally blind in left eye, as defined in [place] Deafness in right ear Arthritis Back pain Hx of hepatitis C Hx of tuberculosis PTSD (post-traumatic stress disorder) COPD (chronic obstructive pulmonary disease) Asthma Left bundle branch block (LBBB) Thrombocytopenia Afib Glaucoma Hypertension Anxiety Depression Cirrhosis Surgical History History of tooth extraction (~2002) History of cardiac catheterization (~2009) History of ear surgery (~1990) History of cholecystectomy (~2009) H/O abdominal surgery S/P LASIK surgery of both eyes Family History Mother Breast cancer Rheumatoid arthritis Social History Household Members: Friend(s) Household Members Other:: niece, adult Housing: House Are you a primary healthcare corporate account director to a significant other at home: No Do you presently have visiting nurse or other home services: No 75 years or older and lives alone: No Patient Tobacco Use Status: Former Tobacco user Tobacco use type: Cigarette Second Hand Smoke Exposure: No Substance Use Type: Marijuana service: No Current occupational status: disabled Review of Systems Const All systems reviewed & are unremarkable except as noted in HPI and below Physical Exam Vital Signs: BMI result Body Mass Index 22.3 Const General: cooperative, healthy appearing, comfortable, no acute distress, well developed and alert Orientation/consciousness: patient oriented x3 HEENT Head: Yes normal to inspection, Yes normocephalic and Yes atraumatic Mouth: moist mucous membranes Eyes General: appearance normal, both eyes and all related structures EOM: EOMs intact bilaterally Neck Neck: Yes normal visual inspection and Yes no lymphadenopathy Chest Other: no audible wheezing. Resp Other: No audible wheezing Effort & Inspection: normal respiratory effort and able to speak in complete sentences Cardio Rate: regular rate Peripheral pulses: Peripheral pulses 2+ throughout GI Inspection: Yes normal to inspection Palpation (GI): Soft to palpation Back/Spine/Pelvis Cervical Spine: normal cervical lordosis Skin General skin exam: no rashes or lesions noted Neuro General: patient oriented x3 Extrem Other: Right hip with positive impingement test and positive Stinchfield. He has severely limited internal rotation and walks with gait antalgia. Psych Appearance: grossly normal Mental Status: mental status grossly normal Speech and movement: Normal speech and movement present Affect: normal affect Attitude: cooperative Results Reviewed Results Reviewed: Xrays were obtained in the office today and personally reviewed by me of the right hip for surgical planning Assessment & Plan Assessment & Plan (1) Osteoarthritis of right hip: Code(s): M16.11 - Unilateral primary osteoarthritis, right hip Category: Medical Qualifiers: Osteoarthritis type: primary Qualified Code(s): M16.11 - Unilateral primary osteoarthritis, right hip Plan: I discussed in detail the procedure and what to expect pre and post operatively. We discussed the risks, benefits and alternatives to the surgery as well as the rehabilitation course. The risks; which include, but are not limited to infection, bleeding, nerve injury, ongoing pain, swelling, and stiffness, perioperative risk of injury to bones and soft tissues, and blood clots. I?ve answered all questions and with their understanding they have consented to move forward with Right total hip arthroplasty with Dr. Hendrix Patient has baseline low platelets; needs to avoid asa and nsaids due to h/o bleed and ulcers ?Eliquis Hep C-caution with tylenol Orders: Orders XR hip RT min 2V Today M25.551 - Pain in right hip Basic Metabolic Panel Today Z01.818 - Encounter for other preprocedural examination PT Evaluation and Treatment Today Z96.641 - Presence of right artificial hip joint Medications: New [SHOWER CHAIR] As directed 1 ea 0RF duration 99 days M16.11 - Unilateral primary osteoarthritis, right hip Coding Level of Care Code Est Pt Level 3 (41588) Complex EM visit Add On G2211 Diagnoses Primary osteoarthritis of right hip M16.11 Osteoarthritis type: primary
[2024-06-02 09:38] VITALS: BMI 22.3
== END 2024-06-02 10:49 | disposition home or self-care (01) ==
LOC: HO.HOS 09:22
PROVIDERS: PCP Family Medicine; Visit Provider Physician Assistant
DX: M16.11 Unilateral primary osteoarthritis, right hip (principal)
CPT/HCPCS: 99024

== ENCOUNTER → 2024-06-02 09:26 | Outpatient (BNV) | payer MEDICAID, SELFPAY | PROVIDERS: Visit Provider Radiology Diagnostic Radiology | DX: M25.551 Pain in right hip (principal) | CPT/HCPCS: 73502 ==

== ENCOUNTER 2024-06-16 09:18 | Outpatient (REF) | payer MEDICAID, SELFPAY ==
--- NOTE | ~2024-06-16 | US_ITS ---
EXAMINATION: US ABDOMEN LIMITED WITH LIVER ELASTOGRAPHY HISTORY: K75.81 - Nonalcoholic steatohepatitis (JAEGER) TECHNIQUE: Real-time grayscale ultrasound imaging of the right upper quadrant was performed and images were reviewed. COMPARISON: Comparison is made with the prior examination dated 03/24/2022. FINDINGS: Liver: The right lobe of the liver measures 11.1 cm in size. The left lobe of the liver measures 9.6 cm in size. The liver demonstrates a nodular contour consistent with cirrhosis. No focal mass or intrahepatic biliary ductal dilatation is identified. There is normal hepatopedal flow in the portal vein. Ultrasound elastography of the liver was performed with 10 separate measurements of the liver parenchyma with the patient in the supine position. Measurements were obtained approximately 2 cm below Elsi's capsule and perpendicular to the capsule. Images are of satisfactory quality. The median shear wave velocity is 1.38 m/s (previously 1.88 m/s). The interquartile range/median (IQR/median) is 0.12. Gallbladder and biliary tree: The gallbladder is surgically absent. The common bile duct is normal in caliber measuring 4 mm. Right Kidney: The right kidney measures 8.5 cm in length. The right kidney is unremarkable, without evidence of masses, hydronephrosis, or calculi. Pancreas: The pancreatic head, neck, and body are unremarkable. The pancreatic tail is obscured by bowel gas. Abdominal aorta and inferior vena cava: The visualized portions of the abdominal aorta and inferior vena cava are normal in caliber. There is no free fluid in the right upper quadrant. US/US abdomen obregon w elastography IMPRESSION: Hepatic cirrhosis. The median shear wave velocity in the liver is 1.38 m/s, corresponding to a median liver stiffness of 6.01 kPa. The IQR/median value is 0.12. This is indicative of a quality data set. Findings are indicative of a low elastography value which rules out advanced chronic liver disease in asymptomatic patients. REFERENCE: Society of Radiologists in Ultrasound Liver Stiffness Thresholds (2020): LIVER STIFFNESS THRESHOLDS: *Shear wave velocity less than 1.3 m/s (Liver Stiffness equal or less than 5 kPa): High probability of being normal. *Shear wave velocity less than 1.7 m/s (Liver Stiffness less than 9 kPa): In the absence of other known clinical signs, rules out compensated advanced chronic liver disease. *Shear wave velocity between 1.7-2.1 m/s (Liver Stiffness 9-13 kPa): Suggestive of compensated advanced chronic liver disease but need further test for confirmation. *Shear wave velocity between 2.1-2.4 m/s (Liver Stiffness 13-17 kPa): Rules in compensated advanced chronic liver disease. *Shear wave velocity greater than 2.4 m/s (Liver Stiffness over 17 kPa): Suggestive of clinically significant portal hypertension. QUALITY OF DATA SET: *IQR/Median value equal or less than 0.15 implies a quality data set. *IQR/Median value over 0.15 implies a poor quality data set. SIGNIFICANT CHANGE FROM PRIOR EXAM: Significant change if liver stiffness measurement is 10% or greater from prior exam. OTHER CONSIDERATIONS: The stage of liver fibrosis may be overestimated in the setting of acute hepatitis, liver inflammation, elevated liver function tests, hepatic vascular congestion, obstructive cholestasis, non-fasting state, and infiltrative diseases such as amyloidosis and lymphoma. In some patients with NAFLD, the liver stiffness thresholds for compensated advanced chronic liver disease may be lower. In causes other than viral hepatitis and NAFLD, liver stiffness thresholds are not well established. Electronically signed by: Bruno Navarro MD 06/16/2024 10:45 AM EDT
--- OUTSIDE RECORDS SUMMARY | 2024-06-16 09:46 | XMS_ITS | Encounter Summary ---
Author Organization [employer] Address [address] [facility] [address] [place] [address] Care Team Providers Care Food Product Inspector Name Role Phone Marii Mcmillan MD Primary Care Provider [phone] Reason for Visit * Reason Onset Date Comments PT1 05/15/2023 Encounter Details Date Type Department Care Team ([facility] st Contact Info) Description 05/15/2023 Telephone [facility] MEDICINE [address] [place] [address] Marii Mcmillan MD [address] [place] [address] PT1 Social History Tobacco Use Types Packs/Day [...] visits) ( x monthly, weekly, daily) Address: [address] [place] [address] Facility[facility] Wheel Chair: NO Refrigerator Tester Needed: NO Address and phone confirmed by Evelyne CHAWLA documented in this encounter Plan of Treatment Upcoming Encounters Date Type Department Care Team (Late st Contact Info) Description 06/16/2024 3:30 PM EDT Office Visit [facility] MED & PEDS [address] [place] [address] Gildardo Huertas MD 505 [place] [address] 08/05/2024 2:45 PM EDT Office Visit [facility] MED & PEDS [address] [place] [address] Nita Steen FNP 505 [place] [address] 08/10/2024 9:30 AM EDT Clinical Support [facility] CHC MED & PEDS [address] [place] [address] Leelee Castaneda, RN [address] [place] [address] documented as of this encounter Visit Diagnoses Not on filedocumented in this encounter Additional Health Concerns Assessment Noted Time PHQ-9 Depression Total Score: 10 023 2:09 PM EST documented as of this encounter Care Teams Food Product Inspector Relationship Specialty Start Date End Date Marii Mcmillan MD [address] [place] [address] PCP - General Family Medicine 07/11/21 Evelyne Green Rv MechanicFarm Machinery Set Up Mechanic 12/09/23 documented as of this encounter
--- OUTSIDE RECORDS SUMMARY | 2024-06-16 09:46 | XMS_ITS | Encounter Summary ---
Author Organization [employer] Address [address] [facility] [address] [place] [address] Care Team Providers Care Liquified Natural Gas Technician Name Role Phone Marii Mcmillan MD Primary Care Provider [phone] Reason for Visit * Reason Onset Date Comments CHART PREP 01/26/2024 Encounter Details Date Type Department Care Team ([facility] Contact Info) Description 01/26/2024 Telephone [facility] [address] [place] [address] Marii Mcmillan MD [address] [place] [address] CHART PREP Social History Tobacco Use Types [...] Description 06/16/2024 3:30 PM EDT Office Visit [facility] [address] [place] [address] Gildardo Huertas MD [address] [place] [address] 08/05/2024 2:45 PM EDT Office Visit [facility] [address] [place] [address] Nita Steen FNP [address] [place] [address] 08/10/2024 9:30 AM EDT Clinical Support [facility] [address] [place] [address] Leelee Castaneda, REGINA [address] [place] [address] documented as of this encounter Visit Diagnoses Diagnosis Polyarthralgia Pain in joint, multiple sites documented in this encounter Additional Health Concerns Assessment Noted Time PHQ-9 Depression Total Score: 10 023 2:09 PM EST documented as of this encounter Care Teams Liquified Natural Gas Technician Relationship Specialty Start Date End Date Marii Mcmillan MD [address] [place] [address] PCP - General Family Medicine 07/11/21 Evelyne Green Mechanical ApprenticeApplication Development Team Lead 12/09/23 documented as of this encounter
--- OUTSIDE RECORDS SUMMARY | 2024-06-16 09:46 | XMS_ITS | Data Portability ---
Author Organization [place] - [facility], Allergy Address [address] [place] [id number] Care Team Providers Care Bite Block Maker Name Role Phone PAULINA EPSTEIN Primary Care Provider Assessment No assessment recorded. Plan of Treatment Reminders Order Date Submit Date Provider Last Modified By Organization Details Last Modified Time Details Appointments None record ed. Lab None record ed. Referral None record ed. Procedures None record ed. Surgeries None record ed. Imaging None record ed. Medication Orders None record ed. Patient TargetsNo targets recorded. Patient InstructionsNo instructions recorded. Reason for Referral None Reported. Problems Name Problem SNOMED Code Status Onset Date Resolution Date Notes Provider Name and Address Organization Details Recorded Time 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 20563412713 49466 Active 2022 Total perforat ions of tympanic membrane , right ear; Note: Date Diagnose d: 3 10:38 AM (H72.821 ) Not Available [facility] 4 02:23:28 Chronic right mastoidi tis 55863559441 07769 Active 2015 Chronic mastoidi tis, right ear; Note: Date Diagnose d: 6 11:16 AM (H70.11) Not Available [facility] 4 02:24:01 Impacted cerumen 98319718 Active 2014 Impacted cerumen; Note: Date Diagnose d: 5 2:25 PM (380.4) Not Available [facility] 4 02:23:45 Postmast oidectom y complica tion 36468484 Active 2022 Other disorder s followin g mastoide ctomy, right ear; Note: Date Diagnose d: 3 10:33 AM (H95.191 ) Not Available [facility] 4 02:23:48 Impacted cerumen in left ear 19687184031 90314 Active 2015 Impacted cerumen, left ear; Note: Date Diagnose d: 6 11:10 AM (H61.22) Not Available [facility] 4 02:23:56 Chronic mastoidi tis 79579752 Active 2013 Chronic mastoidi tis; Location : right CM S Risk: low risk CMS Treatmen t: establis hed problem (to examiner ): unstable or worsenin g Condit ion: unstable Note: Date Diagnose d: 4 3:25 PM (383.1) Not Available [facility] 4 02:24:10 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; Note: Date Diagnose d: 6 11:09 AM (383.33) Not Available [facility] 4 02:24:16 Granulat ions of mastoid cavity 099098006 Completed 201510/16/2023 Granulat ion of postmast oidectom y cavity, right ear; Note: Date Diagnose d: 6 11:16 AM (H95.121 ) Not Available [facility] 4 02:23:25 Bilatera l temporom andibula r joint pain 77319059370 974105 Active 2023 Arthralg ia of bilatera l temporom andibula r joint; Note: Date Diagnose d: 06/16/2023 11:02 AM (M26.623 ) Not Available [facility] 4 02:24:01 Neck pain 60827838 Active 2023 Cervical chelsie; Note: Date Diagnose d: 06/16/2023 11:02 AM (M54.2) Not Available [facility] 4 02:24:04 Chronic neck pain 69510754962 07 Active 2023 Loren bean [place] - [facility] 4 13:58:40 Problem Notes None recorded. Procedures Surgical History Date Name Laterality Status Provider Name and Address Organization Details Recorded Time 5 Debridement of Mastoid Cavity right completed SAI ROCA MD [address] [place] [address], [phone], [facility] - [facility] 06/01/2024 21:11:43 Imaging Results None recorded. Procedure Notes None recorded. Medical Equipment None Reported. Allergies Allergen ID Allergen Name Allergen Category Reaction Reaction Severity Criticality Documentation Date Start Date Code Code System Note Provider Name and Address Organization Details Recorded Time 518134 adhesive tape environme nt,medica tion Not available Not available Not available 05/31/2024 62048 UNK Cecelia bean [place] - [facility] 5 10:17:08 49712 Non-stero idal anti-infl ammatory agent (product) medicatio n other Not available Not available 07/28/2023 70279 005 SNOMED React ion: Unkno wn; Not Available [facility] 4 00:53:26 37434 Penicilli n Not available other Not available Not available 07/28/2023 26457 RxNorm React ion: Unkno wn; Not Available [facility] 4 00:53:42 Medications Name Sig Start Date Stop Date Status Note LastModified by Organization Details LastModified Time multivita min tablet active Medicati on ID: 861832 B rand Name: multivit eldridge Sen d Method: E-Prescr ibed Sub s Allowed: subs OK Speci al Instruct ion: TAKE ONE TABLET DAILY Me dication GenericN reinier: multivit eldridge Not Available Not Available Not Available atorvasta tin 40 mg tablet TAKE 1 TABLET BY MOUTH EVERY DAY IN THE MORNING active Not Available Not Available No t Available benztropi ne 0.5 mg tablet 05/06 completed Medicati on ID: 2332 Dur ation Value: 30 Brand Name: benztrop ine Send Method: E-Prescr ibed Sub s Allowed: subs OK Medic ationGen ericName : benztrop ine Not Available Not Available Not Available Natural Vegetable Powder, S/F oral 10/18 completed Medicati on ID: 2328 Bra nd Name: Natural Vegetabl e Powder, S/F Send Method: E-Prescr ibed Sub s Allowed: subs OK Medic ationGen ericName : Natural Vegetabl e Powder, S/F Not Available Not Available Not Available Expectora nt DM 10 mg-100 mg/5 mL oral syrup 10/18 completed Medicati on ID: 2327 Bra nd Name: Expector ant DM Send Method: E-Prescr ibed Sub s Allowed: subs OK Medic ationGen ericName : Expector ant DM Not Available Not Available Not Available clonazepa m 1 mg tablet 05/06 completed Medicati on ID: 233 Dur ation Value: 10 Brand Name: clonazep am Send Method: E-Prescr ibed Sub s Allowed: subs OK Medic ationGen ericName : clonazep am Not Available Not Available Not Available loperamid e 2 mg tablet 10/18 completed Medicati on ID: 2329 Bra nd Name: loperami de Send Method: E-Prescr ibed Sub s Allowed: subs OK Medic ationGen ericName : loperami de Not Available Not Available Not Available permethri n 5 % topical cream APPLY TO SKIN FROM HAIRLINE TO TOES AND WASH OFF 8-10 HOURS LATER. active Not Available Not Available No t Available triamcino lone acetonide 0.5 % topical ointment APPLY TOPICALL Y 2 TIMES DAILY TO AFFECTED AREA active Not Available Not Available No t Available chlorprom azine 10 mg tablet 05/06 completed Medicati on ID: 2333 Dur ation Value: 15 Brand Name: chlorpro mazine S end Method: E-Prescr ibed Sub s Allowed: subs OK Medic ationGen ericName : chlorpro mazine Not Available Not Available Not Available oxycodone -acetamin ophen 5 mg-325 mg tablet TAKE 1 TABLET BY MOUTH EVERY 6 (SIX) HOURS IF NEEDED FOR SEVERE PAIN FOR UP TO 28 DAYS. active Not Available Not Available No t Available ofloxacin 0.3 % ear drops Apply 5 drop into right ear twice a day 06/02 completed Medicati on ID: 725765 D uration Value: 10 Brand Name: ofloxaci n Send Method: E-Prescr ibed Sub s Allowed: subs OK Medic ationGen ericName : ofloxaci n Not Available Not Available Not Available olanzapin e 20 mg disintegr ating tablet 10/18 completed Medicati on ID: 2325 Bra nd Name: nicholas witt Send Method: E-Prescr ibed Sub s Allowed: subs OK Medic ationGen ericName : nicholas ne Not Available Not Available Not Available tamsulosi n 0.4 mg capsule TAKE 1 CAPSULE BY MOUTH EVERY DAY IN THE MORNING active Not Available Not Available No t Available potassium citrate ER 10 mEq (1,080 mg) tablet,ex tended release TAKE 1 TABLET BY MOUTH EVERY DAY active Not Available Not Available No t Available dorzolami de 22.3 mg-timolo l 6.8 mg/mL eye drops INSTILL 1 DROP INTO RIGHT EYE EVERY 12 HOURS active Not Available Not Available No t Available lorazepam 1 mg tablet TAKE 1 TAB (1 MG) ORALLY ONCE FOR ANXIETY TAKE 30 MINUTES PRIOR TO ARRIVAL TO [facility] E 06/02 completed Not Available Not Available Not Available olanzapin e 20 mg tablet 10/18 completed Medicati on ID: 2335 Dur ation Value: 30 Brand Name: nicholas witt Send Method: E-Prescr ibed Sub s Allowed: subs OK Medic ationGen ericName : nicholas ne Not Available Not Available Not Available Artificia l Tears (polyviny l alcohol) 1.4 % eye drops 05/06 completed Medicati on ID: 2331 Dur ation Value: 30 Brand Name: Artifici al Tears (polyvin alc) Sen d Method: E-Prescr ibed Sub s Allowed: subs OK Medic ationGen ericName : Artifici al Tears (polyvin alc) Not Available Not Available Not Available TobraDex 0.3 %-0.1 % eye drops,snow pension 10/18 completed Medicati on ID: 2473 Pre scribed By Name: INEZ Borden nd Name: TobraDex Send Method: E-Prescr ibed Sub s Allowed: subs OK Speci al Instruct ion: Instill 3 drops in the affect ear BID for 10 days Med icationG enericNa me: TobraDex Not Available Not Available Not Available Ciprodex 0.3 %-0.1 % ear drops,snow pension Instill 4 drop into right ear twice a day as directed 06/02 completed Medicati on ID: [id number] D uration Value: 10 Brand Name: Ciprodex Send Method: E-Prescr ibed Sub s Allowed: subs OK Speci al Instruct ion: x 10 days Med icationG enericNa me: Ciprodex Not Available Not Available Not Available Antacid 200 mg (as calcium carbonate 500 mg) chewable tablet 05/06 completed Medicati on ID: 2326 Bra nd Name: Antacid (calcium carbonat e) Send Method: E-Prescr ibed Sub s Allowed: subs OK Medic ationGen ericName : Antacid (calcium carbonat e) Not Available Not Available Not Available vitamin K 06/02 completed Medicati on ID: 010198 B rand Name: vitamin k Send Method: E-Prescr ibed Sub s Allowed: subs OK Medic ationGen ericName : vitamin k Not Available Not Available Not Available hydrochlo rothiazid e 12.5 mg tablet TAKE 1 TABLET BY MOUTH EVERY DAY IN THE MORNING (12.5 MG) active Not Available Not Available No t Available Artificia l Tears (glycerin -peg) 1 %-0.3 % eye drops 10/18 completed Medicati on ID: 2330 Dur ation Value: 30 Brand Name: Artifici al Tears(gl ycerin-p eg) Send Method: E-Prescr ibed Sub s Allowed: subs OK Medic ationGen ericName : Artifici al Tears(gl ycerin-p eg) Not Available Not Available Not Available Vitals None Recorded Social History Question Answer Notes LastModified by Organizat ion Details LastModified Time Tobacco Smoking Status Former Smoker SAI ROCA MD [address] [place] [address], [phone], [facility] - [facility] 10/28/2023 19:37:28 What Is Your Level Of Alcohol Consumption? None [email or web address] Information not available 10/28/2023 When Did You Quit Smoking? 6-10yearssin celastcigare tte [email or web address] Information not available 10/28/2023 How Many Years Have You Smoked Tobacco? 45 [email or web address] Information not available 10/28/2023 Sex: Unknown Functional Status None recorded. Mental Status None recorded. Family History Nothing Reported. Medical History Condition Response Anxiety Y Glaucoma Y Depression Y Asthma Y Past Encounters Encounter ID Performer Location Encounter Start Date Encounter Closed Date Diagnosis/Indication Diagnosis SNOMED-CT Code Diagnosis ICD10 Code Diagnosis Note [id number] SAI ROCA MD [facility] [address] [address] 06/02/2024 13:15:22 06/02/2024 13:58:49 Postmastoidectomy complication 01016090 H95.191 Right canal wall down mastoidect [place] cavity was debrided today under the binocular microscope . No signs of acute or chronic inflammati on. Patient will follow-up in 12 months for next debridemen t Total perf oration of right tympanic membrane 0442215903 153108 H72.821 Chronic neck pain 903972 8371 107 M54.2 Patient's previously noted neck pain has resolved. Physical exam of the neck is normal. No need to proceed with CAT scan. Health Concerns Section Related Observation LastModified by Organization Detai ls LastModified Time None Recorded Concern Status LastModified by Organization Details LastModified Time None Recorded Advance Directives Directive None Recorded Payers Encounter Date Sequence Insurance Name Policy Number Policy Gatica Covered Member ID Gatica Member ID Guarantor Name 06/02/2024 1 [place] - [facility] (MEDICAID) Manuel Grimm [id number] Manuel Grimm Notes Date Note Type Note Provider Name and Address Organization Details Recorded Time 06/02/2024 text/html Patient with history of right canal wall down mastoidectomy cavity comes in today for mastoid debridement. Last cleaning in June 2023. At that visit he was having some right sided mid neck pain. He is former smoker quit about 7 years ago. History of alcoholism, quit about 20 years ago, but resulted in cirrhosis. At that visit I ordered CAT scan of the neck to evaluate for occult disease. This has not yet been done due to a variety of different medical issues. Last attempted to contact the patient regarding the CT scan was in October 2023 and message left at his home to call back. Patient reports that he is no longer having the neck pain that he was reporting at his last visit.Patient is having a little bit of right periauricular discomfort, but no discharge. The discomfort does radiate into his temporal region. Patient has a known diagnosis of TMJD. SAI ROCA MD [address] [place] [address], [place], [address], [place] - [facility] 06/02/2024 13:58:47
--- OUTSIDE RECORDS SUMMARY | 2024-06-16 09:46 | XMS_ITS | Encounter Summary ---
Author Organization [employer] Address [address] [place] [address] [address] [place] [address] Care Team Providers Care Fourchette Sewer Name Role Phone Marii Mcmillan MD Primary Care Provider [phone] Reason for Visit * Reason Comments Med Refill Encounter Details Date Type Department Care Team (Late Contact Info) Description 04/08/2022 Refill [facility] [address] [place] [address] Marii Mcmillan MD [address] [place] [address] Vitamin deficiency, unspecified Social History Tobacco Use [...] Upcoming Encounters Date Type Department Care Team ([facility] Contact Info) Description 06/16/2024 3:30 PM EDT Office Visit [facility] [address] [place] [address] Gildardo Huertas MD [address] [place] [address] 08/05/2024 2:45 PM EDT Office Visit [facility] [address] [place] [address] Nita Steen FNP [address] [place] [address] 08/10/2024 9:30 AM EDT Clinical Support [facility] [address] [place], [place] [phone] Leelee Castaneda, REGINA [address] [place], [place] [phone] documented as of this encounter Visit Diagnoses Diagnosis Vitamin deficiency, unspecified documented in this encounter Care Teams Fourchette Sewer Relationship Specialty Start Date End Date Marii Mcmillan MD [address] [place] [address] PCP - General Family Medicine 07/11/21 Evelyne Green Straight Slicing Machine OperatorArtificial Glass Eye Maker 12/09/23 documented as of this encounter
--- OUTSIDE RECORDS SUMMARY | 2024-06-16 09:46 | XMS_ITS | Encounter Summary ---
Author Organization [employer] Address [address] [facility] [address] [place] [address] Care Team Providers Care Genetic Counselor Name Role Phone Marii Mcmillan MD Primary Care Provider [phone] Reason for Visit * Reason Comments Med Refill Encounter Details Date Type Department Care Team (Late st Contact Info) Description 06/13/2024 Refill [facility] [address] [place] [address] Marii Mcmillan MD [address] [place] [address] Benign prostatic hyperplasia, unspecified whether lower urinary tract symptoms present; Hypertension, unspecified type Social History Tobacco Use Types Packs/Day Years Used Date Smoking Tobacco: Never Passive Smoke Exposure: Never Smokeless Tobacco: Never Alcohol Use Standard Drinks/Week Comments Never 0 (1 standard drink = 0.6 oz pur e alcohol) Depression Answer Date Recorded Patient Health Questionnaire-9 Score 10 05/23/2022 Housing Stability Answer Date Recorded What is your housing situation today? I have davidrhys drew 01/16/[address] you [...] Description 06/16/2024 3:30 PM EDT Office Visit [facility] [address] [place] [address] Gildardo Huertas MD [address] [place] [address] 08/05/2024 2:45 PM EDT Office Visit [facility] [address] [place] [address] Nita Steen FNP [address] [place] [address] 08/10/2024 9:30 AM EDT Clinical Support [facility] [address] [place] [address] Leelee Castaneda, REGINA [address] [place] [address] documented as of this encounter Visit Diagnoses Diagnosis Benign prostatic hyperplasia, unspecified whether lower urinary tract symptoms present Hypertension, unspecified type documented in this encounter Additional Health Concerns Assessment Noted Time PHQ-9 Depression Total Score: 10 023 2:09 PM EST documented as of this encounter Care Teams Genetic Counselor Relationship Specialty Start Date End Date Marii Mcmillan MD [address] [place] [address] PCP - General Family Medicine 07/11/21 Evelyne Green Corporate ParalegalSupervisor [employer] 12/09/23 documented as of this encounter
--- OUTSIDE RECORDS SUMMARY | 2024-06-16 09:46 | XMS_ITS | Clinical Summary ---
Author Organization [employer] Address [address] [facility] [address] [place] [address] Care Team Providers Care Dialysis Tech Name Role Phone Marii Mcmillan MD Primary Care Provider [phone] Allergies Active Allergy Reactions Criticality Noted Date [...] EVERY DAY IN THE MORNING 023 Active ofloxacin (Floxin) 0.3 % otic solution INSTILL 5 DROPS INTO RIGHT EAR TWICE A DAY FOR 10 DAYS 024 Active Lotemax 0.5 % ophthalmic suspension INSTILL 1 DROP IN BOTH EYES TWICE A DAY FOR 3 WEEKS THEN DISCONTINUE Active atorvastatin (Lipitor) 40 MG tabletIndications :Hyperlipidemia, unspecified hyperlipidemia type TAKE 1 TABLET BY MOUTH EVERY DAY IN THE MORNING 90 tablet 4 Active Multiple Vitamin (Multivitamin) tabletIndications :Vitamin deficiency, unspecified TAKE 1 TABLET BY MOUTH EVERY DAY IN THE MORNING 90 tablet 4 Active permethrin (Elimite) 5 % cream apply to skin from hairline to toes and wash off 8-10 hours later 60 g 024 Active triamcinolone (Kenalog) 0.5 % ointment APPLY TOPICALLY 2 TIMES DAILY TO AFFECTED AREA 15 g Active oxyCODONE-acetami nophen (Percocet) 5-325 MG tabletIndications :Polyarthralgia Take 1 tablet by mouth every 6 (six) hours if needed for severe pain for up to 28 days. 112 tablet 025 2024 Active tamsulosin (Flomax) 0.4 MG 24 hr capsuleIndication s:Benign prostatic hyperplasia, unspecified whether lower urinary tract symptoms present TAKE 1 CAPSULE BY MOUTH EVERY DAY IN THE MORNING 90 capsule 1 025 Active hydroCHLOROthiazi de 12.5 MG tabletIndications :Hypertension, unspecified type TAKE 1 TABLET BY MOUTH EVERY DAY IN THE MORNING (12.5 MG) 90 tablet 4 025 Active potassium citrate CR (Urocit-K-10) 10 mEq ER tablet TAKE 1 TABLET BY MOUTH EVERY DAY 90 tablet 1 025 Active hydroCHLOROthiazi de (HYDRODiuril) 12.5 MG tabletIndications :Hypertension, unspecified type TAKE 1 TABLET BY MOUTH EVERY DAY IN THE MORNING (12.5 MG) 90 tablet 4 024 2024 Discontinued tamsulosin (Flomax) 0.4 MG 24 hr capsuleIndication s:Benign prostatic hyperplasia, unspecified whether lower urinary tract symptoms present TAKE 1 CAPSULE BY MOUTH EVERY DAY IN THE MORNING 90 capsule 1 024 2024 Discontinued potassium citrate CR (Urocit-K-10) 10 mEq ER tablet TAKE 1 TABLET BY MOUTH EVERY DAY 90 tablet 1 024 2024 Discontinued oxyCODONE-acetami nophen (Percocet) 5-325 MG tabletIndications :Polyarthralgia Take 1 tablet by mouth every 6 (six) hours if needed for severe pain for up to 28 days. 112 tablet 025 2024 Discontinued(R eorder (will not trigger notification to Pharmacy)) Active Problems Problem Noted Date Diagnosed Date Long-term current use of opiate analgesic 2024 Pruritus 11/30/2023 Assessment & Plan (11/30/2023 3:39 [...] Assessment & Plan (07/07/2023 3:56 PM EDT): building specialist will further monitor hip pain. Assessment & Plan (04/21/2023 1:34 PM EST): Patient with Hx of Hip Arthritis stated that medications are not improving hip pain. Therefore, will discontinue prior medications, and will be prescribing Oxycodone. Recommended to follow up with an in-person visit. Assessment & Plan (02/26/2023 3:51 PM EST): [facility] compplaints of R Hip Pain [...] Encounters Date Type Department Care Team Description 06/13/2024 Refill [facility] [address] [place] [address] Marii Mcmillan MD Benign prostatic hyperplasia, unspecified whether lower urinary tract symptoms present; Hypertension, unspecified type 06/09/2024 Telephone [facility] [address] [place] [address] Marii Mcmillan MD Nurse Triage 06/02/2024 Orders Only GENERIC EXTERNAL DATA DEPARTMENT Provider, Generic External Data 05/30/2024 2:00 PM EDT Telemedicine [facility] [address] [place] [address] Leelee Castaneda RN Long-term current use of opiate analgesic; Chronic low back pain, unspecified back pain laterality, unspecified whether sciatica present 05/30/2024 Travel 05/27/2024 Population Health Risk Score [facility] Department [address] [phone] Provider, Population Health Generic 05/26/2024 Orders Only [facility] External Provider, [facility] 05/26/2024 Refill [facility] [address] [place] [address] Marii Mcmillan MD Polyarthralgia 05/23/2024 Orders Only GENERIC EXTERNAL DATA DEPARTMENT Provider, Generic External Data 05/18/2024 Orders Only GENERIC EXTERNAL DATA DEPARTMENT Provider, Generic External Data 05/09/2024 Orders Only GENERIC EXTERNAL DATA DEPARTMENT Provider, Generic External Data 04/29/2024 Orders Only [facility] [address] [place] [address] Star Dick MD Polyarthralgia 04/27/2024 Refill [facility] [address] [place] [address] Marii Mcmillan MD Polyarthralgia 04/21/2024 Telephone [facility] [address] [place] [address] Gildardo Huertas MD 04/18/2024 2:00 PM EST Office Visit [facility] [address] [place] [address] Gildardo Huertas MD Pre-op evaluation (Primary Dx); LBBB (left bundle branch block) 04/18/2024 Travel 03/29/2024 Refill [facility] [address] [place] [address] Marii Mcmillan MD Polyarthralgia 03/18/2024 Telephone [facility] [address], [place] [phone] Marii Mcmillan MD call back/referral from Last 3 Months Immunizations Name Administration [...] Description 06/16/2024 3:30 PM EDT Office Visit [facility] [address] [place], [place] [phone] Gildardo Huertas MD [address] [place] [address] 08/05/2024 2:45 PM EDT Office Visit [facility] [address] [place], [place] [phone] Nita Steen FNP [address] [place], [place] [phone] 08/10/2024 9:30 AM EDT Clinical Support [facility] [address] [place] [address] Leelee Castaneda RN [address] [place], [place] [phone] Health Maintenance Due Date Last Done Comments [...] Procedure Name Priority Date/Time Associated Diagnosis Comments BASIC METABOLIC PANEL Routine 06/02/2024 10:56 AM EDT STRESS TEST WITH MYOCARDIAL PERFUSION Routine 05/26/2024 9:32 AM EDT VITAMIN B3 Routine 05/23/2024 2:07 PM EDT VITAMIN C Routine 05/23/2024 2:07 PM EDT ZINC Routine 05/23/2024 2:07 PM EDT VITAMIN B1 Routine 05/18/2024 8:57 AM EST VITAMIN B5 (PANTOTHENIC ACID) Routine 05/18/2024 8:57 [...] Routine 04/18/2024 3:15 PM EST Pre-op evaluation LIPID PANEL, STANDARD Routine 07/26/2021 10:58 AM EDT from Last 3 Months or Most Recently Relevant to Health Maintenance Results * (ABNORMAL) Basic Metabolic Panel (06/02/2024 10:56 AM EDT) Sodium 141 135 - 145 mmol/L [facility] Potassium 4.2 3.3 - 5.1 mmol/L [facility] Chloride 109(H) 96 - 108 mmol/L [facility] Carbon Dioxide 25 22 - 29 mmol/L [facility] Anion Gap 11(L) 12 - 20 [facility] Urea Nitrogen (BUN) 18(H) 9 - 16 mg/dL [facility] Creatinine, Serum 0.77 0.5 - 1.4 mg/dL [facility] Creatinine Clr Calc Pharmacy 85.4 [facility] Comment:eGFR (calculated fro m the MDRD study equation) and eCrCl(calculated from the Cockcroft-Gault equation) are based ondifferent parameters and may not yield comparable results.If eCrCl result is absurd, please check patient'sheight/weight. Estimated Glomerular Filt Rate >60 [facility] Comment:Chronic Kidney Disea se: Estimated GFR < 60 mL/min/1.67u6Pwxjwd Kidney Disease: Estimated GFR < 15 mL/min/1.73m2 Glucose 77 60 - 115 mg/dL [facility] Calcium 9.8 8.4 - 10.2 mg/dL [facility] 06/02/2024 10:5 6 AM EDT 06/02/2024 10:56 AM EDT us Generic External Data Provider LAB BLOOD ORDERAB LES Final Result [facility] [address] [place] [address] [phone] * Stress test with myocardial perfusion (05/26/2024 9:32 AM EDT) 05/26/2024 9:32 AM EDT Narrative [facility] - 05/29/2024 11:54 AM EDT ? [facility] ?[address] ?[place] [address] ?Nuclear Medicine Report ? Signed ? Patient: Grimm,Manuel D ?MR#: [id number] ?? [id number] ? : 1960 ?Acct:[id number] ? Age/Sex: 63 / M ?ADM Date: 05/26/24 ? Loc: HO.CARD ? Attending Dr: Hermes Toussaint MD ? Ordering Physician: Hermes Toussaint MD ?? Date of Service: 05/26/24 ?? Procedure(s): NM cardiolite stress test ?? Accession Number(s): [id number] ? cc: Hermes Toussaint MD; Marii Mcmillan MD ? Lexiscan Myocardial perfusion study ? Indication: ?? Chest pain ? Technique: ? The patient was brought in for a Lexiscan perfusion study on 05/26/2024 ?? and was injected 0.4 mg of Lexiscan intravenously. Within a minute of ?? this injection 25 mCi of sestamibi was given intravenously. Images were ?? obtained using the SPECT gamma camera interlaced with the gating ?? device. Images were obtained in supine position. ? Resting perfusion study was performed on 05/27/2024. Patient was ?? administered 25 mCi of sestamibi intravenously at rest. Images were ?? then obtained in supine position. Total DLP 73 mGy-cm. ? Images were processed with the software and compared side to side in ?? short axis, horizontal long axis and vertical long axis views. ? Findings: ? Raw aquisition reviewed. Arms by the patient side. ? The stress perfusion study showed ??no significant perfusion ?? abnormality. Both uncorrected as well as CT attenuation corrected ?? images were reviewed. The gated study shows normal LV systolic function ?? with calculated LVEF of 43%, but visually normal. LV cavity is normal ?? in size. The gated study shows normal ??wall thickening and contraction ?? of segments. ? Resting study shows no significant perfusion abnormality. Gating at ?? rest reveals normal wall motion with ejection fraction at 64%. ? The findings are consistent with no clear reversible or fixed perfusion ?? abnormality. ? NM/NM cardiolite stress test ?? Impression: ? 1. ??Myocardial perfusion imaging study shows probably normal myocardial ?? perfusion. ?? 2. ??Gated LVEF is 43% during stress, but visually normal. 64% during ?? rest. Correlate with echocardiogram. ?? 3. Transient ischemic dilatation not present. ? EKG component of the test reported separately. ? Electronically signed by: ??Hermes Toussaint MD ??05/29/2024 11:51 ?? AM EDT RP ? Dictated By: ?Hermes Toussaint MD ? Signed By: ?<Electronically signed by Hermes Toussaint MD in OV> ?05/29/24 1151 ? DD/ 0932 ? TD/TT: 05/27/24 0855 ? Disability Rater: ? Procedure Note [place], Image - 05/29/2024 [place] [address] Nuclear Medicine Report Signed Patient: Manuel Grimm DMR#: [id number] : 1Acct:[id number] Age/Sex: 63 / MADM Date: 05/26/24 Loc: [facility] Attending Dr: Hermes Toussaint MD Ordering Physician: Hermes Toussaint MD Date of Service: 05/26/24 Procedure(s): NM cardiolite stress test Accession Number(s): [id number] cc: Hermes Toussaint MD; Marii Mcmillan MD Lexiscan Myocardial perfusion study Indication: Chest pain Technique: The patient was brought in for a Lexiscan perfusion study on 05/26/2024 and was injected 0.4 mg of Lexiscan intravenously. Within a minute of this injection 25 mCi of sestamibi was given intravenously. Images were obtained using the SPECT gamma camera interlaced with the gating device. Images were obtained in supine position. Resting perfusion study was performed on 05/27/2024. Patient was administered 25 mCi of sestamibi intravenously at rest. Images were then obtained in supine position. Total DLP 73 mGy-cm. Images were processed with the software and compared side to side in short axis, horizontal long axis and vertical long axis views. Findings: Raw aquisition reviewed. Arms by the patient side. The stress perfusion study showed no significant perfusion abnormality. Both uncorrected as well as CT attenuation corrected images were reviewed. The gated study shows normal LV systolic function with calculated LVEF of 43%, but visually normal. LV cavity is normal in size. The gated study shows normal wall thickening and contraction of segments. Resting study shows no significant perfusion abnormality. Gating at rest reveals normal wall motion with ejection fraction at 64%. The findings are consistent with no clear reversible or fixed perfusion abnormality. NM/NM cardiolite stress test Impression: 1. Myocardial perfusion imaging study shows probably normal myocardial perfusion. 2. Gated LVEF is 43% during stress, but visually normal. 64% during rest. Correlate with echocardiogram. 3. Transient ischemic dilatation not present. EKG component of the test reported separately. Electronically signed by: Hermes Toussaint MD 05/29/2024 11:51 AM EDT Dictated By: Hermes Toussaint MD Signed By: <Electronically signed by Hermes Toussaint MD inOV> 05/29/24 1151 DD/ 0932 TD/TT: 05/27/24 0855 Disability Rater: us [facility] External Provider CV STRE SS PROCEDURES Final Result [facility] [address] [place], [place] [phone] * (ABNORMAL) Zinc (05/23/2024 2:07 PM EDT) Zinc 56(A) 60 - 130 mcg/dL [facility] Comment:This test was develo ped and its analytical performancecharacteristics have been determined by [employer] [place], [place]. It hasnot been cleared or approved by the U.S. Food and DrugAdministration. This assay has been validated pursuantto the CLIA regulations and is used for clinicalpurposes.THIS TEST WAS PERFORMED AT:[employer] [place] [address]OSRIRHNLON ROCA MD,PHD 05/23/2024 2:07 PM EDT 05/23/2024 2:07 PM EDT us Generic External Data Provider LAB BLOOD ORDERAB LES Final Result [facility] [address] [place] [address] [phone] * Vitamin B3 (Niacin and Metabolite) (05/23/2024 2:07 PM EDT) Nicotinic Acid <20 see note ng/mL [facility] Comment:Due to the large ifeanyi iability in the metabolism ofnicotinic acid, the dosing preparation used (immediate-release vs. extended release), and the mg doses usedthe serum concentrations may range from less than20 ng/mL to about 30,000 ng/mL.After oral administration of an immediate-releasetablet, peak plasma concentrations occur in 4 to 5hours. The plasma half-life of nicotinic acid is aboutone hour. In one study, fasting plasma concentrationswere reported to be less than 20 ng/mL. In anotherstudy, it was reported that the administration of asingle 1000 mg extended-release tablet resulted in meannicotinic acid concentrations of less than 50 ng/mL.This test was developed and its analyticalperformance characteristics have been determinedby [employer], [place], [place].It has not been cleared or approved by the FDA. Thisassay has been validated pursuant to the CLIAregulations and is used for clinical purposes. Nicotinamide <20 see note ng/mL [facility] Comment:Nicotinamide is a me tabolite of nicotinic acid. Due tothe large variability in the metabolism of nicotinicacid, plasma concentrations of this metabolite arevariable. In one study, fasting plasma concentrationswere reported to be approximately 40 ng/mL. In anotherstudy it was reported that the administration of asingle 1000 mg of extended-release tablet of nicotinicacid resulted in a mean peak nicotinamide concentrationof 400 ng/mL between 5 and 10 hours post dose,decreasing to about 100 ng/mL by 16 hours post dose.This test was developed and its analyticalperformance characteristics have been determinedby [facility] [place].It has not been cleared or approved by the FDA. Thisassay has been validated pursuant to the CLIAregulations and is used for clinical purposes.THIS TEST WAS PERFORMED AT:[employer]/[id number] [place] [address]BPCKBEALON ROCA MD,PHD 05/23/2024 2:07 PM EDT 05/23/2024 2:07 PM EDT Generic External Data Provider LAB BLOOD ORDERAB LES Final Result Performing Organization Address [facility] de Phone Number [facility] [address] [place] [phone] * (ABNORMAL) Vitamin C (05/23/2024 2:07 PM EDT) Vitamin C <0.1(A) 0.2 - 2.1 mg/dL [facility] Comment:This test was develo ped and its analyticalperformance characteristics have been determinedby [employer] [place], [place].It has not been cleared or approved by the FDA. Thisassay has been validated pursuant to the CLIAregulations and is used for clinical purposes.THIS TEST WAS PERFORMED AT:[employer]/[facility] [place] [address]ANODCGPLON ROCA MD,PHD 05/23/2024 2:07 PM EDT 05/23/2024 2:07 PM EDT Generic External Data Provider LAB BLOOD ORDERAB LES Final Result Performing Organization Address [facility] de Phone Number [facility] [address] [place] [phone] * Vitamin B5 (Pantothenic Acid) (05/18/2024 8:57 AM EST) Vitamin B5 (Pantothenic Acid) <=40 <275 ng/mL [facility] Comment:This test was develo ped and its analyticalperformance characteristics have been determinedby [facility] [place]It has not been cleared or approved by the FDA. Thisassay has been validated pursuant to the CLIAregulations and is used for clinical purposes.THIS TEST WAS PERFORMED AT:[employer] [id number] [place] [address]BJDFMMFLON ROCA MD,PHD 05/18/2024 8:57 AM EST 05/18/2024 8:57 AM EST Generic External Data Provider LAB BLOOD ORDERAB LES Final Result Performing Organization Address [facility] Co de Phone Number [facility] [address] [place] [phone] * (ABNORMAL) Vitamin K1 (05/18/2024 8:57 AM EST) Vitamin K1 1813(A) 130 - 1500 pg/mL [facility] Comment:This test was develo ped and its analytical performancecharacteristics have been determined by [employer] [place], [place]. It hasnot been cleared or approved by the U.S. Food and DrugAdministration. This assay has been validated pursuantto the CLIA regulations and is used for clinicalpurposes.THIS TEST WAS PERFORMED AT:[employer] [id number] [place] [address]KDZDNIQLON ROCA MD,PHD 05/18/2024 8:57 AM EST 05/18/2024 8:57 AM EST Generic External Data Provider LAB BLOOD ORDERAB LES Final Result Performing Organization Address [facility] Co de Phone Number [facility] [address] [place] [phone] * (ABNORMAL) Vitamin D, 25-Hydroxy, Total, Immunoassay (05/18/2024 8:57 AM EST) Vitamin D 25-OH Total 20.4(L) >30 ng/mL [facility] Comment:Health Based Referen ce Values*< 20 ng/mL Uybahfpte19-71 ng/mL Insufficient> 30 ng/mL Sufficient*Mavis CANTRELL. N [...] ORDERAB LES Final Result Performing Organization Address [facility]/ZIP Co de Phone Number [facility] [address] [place] [phone] * Vitamin B12 (Cobalamin) and Folate Panel, Serum (05/18/2024 8:57 AM EST) Vitamin B12 617 200 - 900 pg/mL [facility] Comment:NORMAL 200-900 PG/ML INDETERMINATE 160-199 PG/ML DEFICIENT < 160 PG/ML Folate 11.8 > or = 4.0 ng/mL [facility] Comment:Reference Values:> o r = 4.0 ng/mL< 4.0 ng/mL suggests folate deficiency Methotrexate, aminopterin and folinic acid(leucovorin) are chemotherapeutic agents whose molecularstructures are similar to folate; therefore, the Architectfolate assay cannot be used for patients using these drugs. 05/18/2024 8:57 AM EST 05/18/2024 8:57 AM EST us Generic External Data Provider LAB BLOOD ORDERAB LES Final Result Performing Organization Address City/[facility]/ZIP Co de Phone Number [facility] [address] [place] [address] [phone] * (ABNORMAL) CBC auto differential (05/18/2024 8:57 AM EST) Only the most recent of2 resultswithin the time period is included. White Blood Count 5.1 4.8 - 10.8 X10*3/uL [facility] Red Blood Count 4.66 4.60 - 5.80 X10*6/uL [facility] Hemoglobin 14.4 14.0 - 18.0 g/dl [facility] Hematocrit 40.4(L) 42.0 - 52.0 % [facility] Mean Corpuscular Volume 86.7 80.0 - 98.0 fL [facility] Mean Corpuscular Hemoglobin 30.9 27.0 - 33.0 pg [facility] Mean Corpuscular HGB Conc 35.6 31.0 - 36.0 g/dl [facility] Red Cell Distribution Width 13.1 11.0 - 16.0 % [facility] Platelet Count 119(L) 160 - 400 X10*3/uL [facility] Mean Platelet Volume 10.2 9.4 - 12.4 fL [facility] Neutrophils Percent Auto 44.2(L) 45 - 73 % [facility] Imm Gran Pct Auto 0.2 0.0 - 0.4 % [facility] Lymphocytes Percent Auto 31.2 20 - 40 % [facility] Monocytes Percent Auto 17.0(H) 2 - 11 % [facility] Eosinophils Percent Auto 6.8(H) 0 - 4 % [facility] Basophils Percent Auto 0.6 0 - 2 % [facility] NRBC Pct Auto 0.0 0.0 - 0.2 /100WBC [facility] Neutrophils Absolute Auto 2.3 2.0 - 8.3 x10*3/uL [facility] Imm Gran Abs Auto 0.01 0.00 - 0.03 X10*3/uL [facility] Lymphocytes Absolute Auto 1.6 1.2 - 4.9 X10*3/uL [facility] Monocytes Absolute Auto 0.9 0.1 - 1.2 X10*3/uL [facility] Eosinophils Absolute Auto 0.4 0.0 - 0.4 X10*3/uL [facility] Basophils Absolute Auto 0.0 0.0 - 0.2 X10*3/uL [facility] NRBC Abs Auto 0.000 0.0 - 0.012 X10*3/uL [facility] 05/18/2024 8:57 AM EST 05/18/2024 8:57 AM EST Generic External Data Provider LAB BLOOD ORDERAB LES Final Result Performing Organization Address [facility]/ZIP Co de Phone Number [facility] [address] [place] [phone] * Vitamin A (05/18/2024 8:57 AM EST) Vitamin A (Retinol) 47 38 - 98 mcg/dL [facility] Comment:Vitamin supplementat ion within 24 hours prior toblood draw may affect the accuracy of the results.This test was developed and its analytical performancecharacteristics have been determined by [employer] [place], [place]. It hasnot been cleared or approved by the U.S. Food and DrugAdministration. This assay has been validated pursuantto the CLIA regulations and is used for clinicalpurposes.THIS TEST WAS PERFORMED AT:[employer] [place] [address]BCRNEPDLON ROCA MD,PHD 05/18/2024 8:57 AM EST 05/18/2024 8:57 AM EST Generic External Data Provider LAB BLOOD ORDERAB LES Final Result Performing Organization Address [facility] Co de Phone Number [facility] [address] [place] [phone] * Prothrombin Time-INR (05/18/2024 8:57 AM EST) Only the most recent of2 resultswithin the time period is included. Prothrombin Time 11.1 10.9 - 12.4 SEC [facility] INTERNATIONAL NORM RATIO 1.0 0.9 - 1.1 [facility] Comment:INTERNATIONAL NORMAL IZED RATIO (INR) [...] ORDERAB LES Final Result Performing Organization Address City/State/[facility] Co de Phone Number [facility] [address] [place] [address] [phone] * Vitamin E (Tocopherol) (05/18/2024 8:57 AM EST) Vitamin E, Alpha-Tocopherol 7.4 5.7 - 19.9 mg/L [facility] Comment:Levels of alpha-toco pherol <5 mg/L are consistentwith Vitamin E deficiency in adults. Vitamin E, Orqk-Wakqm-Ynbswrjfzm <1.0 <=4.3 mg/L [facility] Comment:Vitamin supplementat ion within 24 hours prior toblood draw may affect the accuracy of the results.This test was developed and its analytical performancecharacteristics have been determined by [employer] [place], [place]. It hasnot been cleared or approved by the U.S. Food and DrugAdministration. This assay has been validated pursuantto the CLIA regulations and is used for clinicalpurposes.THIS TEST WAS PERFORMED AT:[employer] [place] [address]XKDAQYILON ROCA MD,PHD 05/18/2024 8:57 AM EST 05/18/2024 8:57 AM EST Generic External Data Provider LAB BLOOD ORDERAB LES Final Result Performing Organization Address [facility] Co de Phone Number [facility] [address] [place] [phone] * Vitamin B1 (05/18/2024 8:57 AM EST) Vitamin B1 12 8 - 30 nmol/L [facility] Comment:Vitamin supplementat ion within 24 hours prior toblood draw may affect the accuracy of the results.This test was developed and its analytical performancecharacteristics have been determined by [facility] [place] It hasnot been cleared or approved by the U.S. Food and DrugAdministration. This assay has been validated pursuantto the CLIA regulations and is used for clinicalpurposes.THIS TEST WAS PERFORMED AT:[employer]/[facility]ZZOPSANTA[address] [place] [address]BURUPHSLON ROCA MD,PHD 05/18/2024 8:57 AM EST 05/18/2024 8:57 AM EST Generic External Data Provider LAB BLOOD ORDERAB LES Final Result Performing Organization Address [facility] de Phone Number [facility] [address] [place] [phone] * Vitamin B6, Plasma (05/18/2024 8:57 AM EST) Vitamin B6 5.9 2.1 - 21.7 ng/mL [facility] Comment:Vitamin supplementat ion within 24 hours prior toblood draw may affect the accuracy of the results.This test was developed and its analytical performancecharacteristics have been determined by [facility] It hasnot been cleared or approved by the U.S. Food and DrugAdministration. This assay has been validated pursuantto the CLIA regulations and is used for clinicalpurposes.THIS TEST WAS PERFORMED AT:[employer]/[facility]GVLAYFHDE[address] [place] [address]RSJRKHQLON ROCA MD,PHD 05/18/2024 8:57 AM EST 05/18/2024 8:57 AM EST Generic External Data Provider LAB BLOOD ORDERAB LES Final Result Performing Organization Address [facility] Co de Phone Number [facility] [address] [place] [phone] * Magnesium (05/18/2024 8:57 AM EST) [facility] Magnesium 2.0 1.6 - 2.6 mg/dL [facility] 05/18/2024 8:57 AM EST 05/18/2024 8:57 AM EST Generic External Data Provider LAB BLOOD ORDERAB LES Final Result Performing Organization Address [facility] Phone Number [facility] [address] [place] [phone] * (ABNORMAL) Ferritin (05/18/2024 8:57 AM EST) Pathologist [facility] Ferritin 351(H) 20 - 250 ng/mL [facility] 05/18/2024 8:57 AM EST 05/18/2024 8:57 AM EST Generic External Data Provider LAB BLOOD ORDERAB LES Final Result Performing Organization Address [facility] de Phone Number [facility] [address] [place] [phone] * (ABNORMAL) Comprehensive Metabolic Panel (05/18/2024 8:57 AM EST) Only the most recent of2 resultswithin the time period is included. Pathologist [facility] Sodium 140 135 - 145 mmol/L [facility] Potassium 3.6 3.3 - 5.1 mmol/L [facility] Chloride 109(H) 96 - 108 mmol/L [facility] Carbon Dioxide 24 22 - 29 mmol/L [facility] Anion Gap 11(L) 12 - 20 [facility] Urea Nitrogen (BUN) 21(H) 9 - 16 mg/dL [facility] Creatinine, Serum 0.77 0.5 - 1.4 mg/dL [facility] Estimated Glomerular Filt Rate >60 [facility] Comment:Chronic Kidney Disea se: Estimated GFR < 60 mL/min/1.15k2Vbuejs Kidney Disease: Estimated GFR < 15 mL/min/1.73m2 Glucose 85 60 - 115 mg/dL [facility] Calcium 9.4 8.4 - 10.2 mg/dL [facility] Bilirubin, Total 0.9 0.0 - 1.0 mg/dL [facility] Aspartate Amino Transferase 29 5 - 37 U/L [facility] Alanine Aminotransferase 26 0 - 40 U/L [facility] Total Protein 7.6 6.5 - 8.0 g/dL [facility] Albumin Level 4.3 3.5 - 5.0 g/dL [facility] Alkaline Phosphatase 60 39 - 117 U/L [facility] 05/18/2024 8:57 AM EST 05/18/2024 8:57 AM EST Generic External Data Provider LAB BLOOD ORDERAB LES Final Result [facility] [address] [place] [phone] * MRSA Nasal Screen (05/09/2024 1:00 PM EST) MRSA Nasal PCR NEGATIVE Negative [facility] SA Nasal PCR NEGATIVE Negative [facility] MRSA Interpretation SEE NOTE [facility] Comment:MRSA target DNA not detected; SA target DNA not detected.A MRSA NEGATIVE, SA NEGATIVE test result does not precludeMRSA or SA nasal colonization. 05/09/2024 1:00 PM EST 05/09/2024 1:18 PM EST us Generic External Data Provider LAB MICROBIOLOGY - GENERAL ORDERABLES Final Result Performing Organization Address [facility] Co de Phone Number [facility] [address] [place] [phone] * ECG 12 lead (04/18/2024 4:12 PM EST) Narrative Gildardo Huertas MD - 04/18/2024 4:12 PM EST HR: 65 bpm. [place] 18. ??LBBB. ??High lateral and lateral repolarization disturbance. ??Normal sinus rhythm us Gildardo Huertas MD ECG ORDERABLES Final Resul t * TSH W/Reflex to FT4 (04/18/2024 3:15 PM EST) TSH reflex Free T4 2.40 0.32 - 4.0 uIU/mL [facility] Blood Venous blood specimen / Unknown 04/18/2024 3:15 PM EST 04/18/2024 5:39 PM EST us Gildardo Huertas MD LAB BLOOD ORDERABLES Final Result Performing Organization Address [facility] Co de Phone Number [facility] [address] [place] [phone] * HIV-1/2 Antigen and Antibodies, Fourth Generation, with Reflexes (04/18/2024 3:15 PM EST) HIV AB/AG Nonreactive Nonreactive [facility] Comment:HIV-1 p24 Ag and/or HIV-1/HIV-2 Ab not detected.A test result that is nonreactive does not exclude thepossibility of exposure to or infection with HIV-1 and/orHIV-2. Nonreactive results in this assay for individualswith prior exposure to HIV-1 and/or HIV-2 may be due toantigen and antibody levels that are below the limit ofdetection of this assay.The myJambi HIV Ag/Ab Combo assay result andsupplemental assay results should be interpreted inconjunction with the patient's clinical presentation,history and other laboratory results. If the results areinconsistent with clinical evidence, additional testing issuggested to confirm the result. Blood Venous blood specimen / Unknown 04/18/2024 3:15 PM EST 04/18/2024 5:39 PM EST us Gildardo Huertas MD LAB BLOOD ORDERABLES Final Result Performing Organization Address [facility] Co de Phone Number [facility] [address] [place] [phone] * Partial Thromboplastin Time, Activated (APTT) (04/18/2024 3:15 PM EST) Partial Thromboplastin Time 34.9 26.0 - 36.8 SEC [facility] Comment:For information rega rding the monitoring of direct thrombininhibitors, please refer to Pharmacy. Blood Venous blood specimen / Unknown 04/18/2024 3:15 PM EST 04/18/2024 5:39 PM EST us Gildardo Huertas MD LAB BLOOD ORDERABLES Final Result Performing Organization Address [facility] Co de Phone Number [facility] [address] [place] [phone] * Prealbumin (04/18/2024 3:15 PM EST) Prealbumin 22.0 20 - 40 mg/dL [facility] Blood Venous blood specimen / Unknown 04/18/2024 3:15 PM EST 04/18/2024 5:39 PM EST us Gildardo Huertas MD LAB BLOOD ORDERABLES Final Result Performing Organization Address [facility] Co de Phone Number [facility] [address] [place] [phone] * (ABNORMAL) LIPID PANEL, STANDARD (07/26/2021 10:58 [...] ?? Fortunato GIBSON et al. ISHAN. 2013;310(19): 4491-2535 ?? (http://education.[place]/faq/UAY770) Non-HDL Cholesterol 124 <130 mg/dL (calc) [facility] Comment: For patients with diabetes plus 1 major ASCVD risk ?? factor, treating to a non-HDL-C goal of <100 mg/dL ?? (LDL-C of <70 mg/dL) is considered a therapeutic ?? option. Triglycerides 102 <150 mg/dL [facility] 07/26/2021 10:5 8 AM EDT us Marii Mcmillan MD LAB BLOOD ORDERABLES Final Re sult [facility] [address] from Last 3 Months or Most Recently Relevant to Health Maintenance Insurance stickK C3 Care Teams Dialysis Tech Relationship Specialty Start Date End Date Marii Mcmillan MD [address] [place] [phone] PCP - General Family Medicine 07/11/21 Evelyne Green Long Lines OperatorFunctional Support Analyst 12/09/23
--- OUTSIDE RECORDS SUMMARY | 2024-06-16 09:46 | XMS_ITS | Encounter Summary ---
Author Organization [employer] Address [address] [facility] 7t [place] [address] Care Team Providers Care Electronic Science Teacher Name Role Phone Marii Mcmillan MD Primary Care Provider [phone] Reason for Visit * Reason Onset Date Comments Appointment Request 04/22/2023 Encounter Details Date Type Department Care Team ([facility] Contact Info) Description 04/22/2023 Telephone [facility] [address] [place] [address] Marii Mcmillan MD [address] [place] [address] Appointment Request Social History Tobacco Use Types [...] fever. Pt is offered to come to [facility] today or tomorrow morning but, Pt [...] (Car wont Start) Please contact pt @ [phone] documented in this encounter Plan of Treatment Upcoming Encounters Date Type Department Care Team ([facility] st Contact Info) Description 06/16/2024 3:30 PM EDT Office Visit [facility] [address] [place] [address] Gildardo Huertas MD [address] [place] [address] 08/05/2024 2:45 PM EDT Office Visit [facility] [address] [place] [address] Nita Steen FNP [address] [place] [address] 08/10/2024 9:30 AM EDT Clinical Support [facility] [address] [place] [address] Leelee Castaneda, RN [address] [place] [address] documented as of this encounter Visit Diagnoses Not on filedocumented in this encounter Additional Health Concerns Assessment Noted Time PHQ-9 Depression Total Score: 10 023 2:09 PM EST documented as of this encounter Care Teams Electronic Science Teacher Relationship Specialty Start Date End Date Marii Mcmillan MD [address] [place] [address] PCP - General Family Medicine 07/11/21 Evelyne Green Employment RecruiterTelephone Plant Power Operator 12/09/23 documented as of this encounter
--- OUTSIDE RECORDS SUMMARY | 2024-06-16 09:46 | XMS_ITS | Encounter Summary ---
Author Organization [employer] Address [address] [facility] 7t [place] [address] Care Team Providers Care Firer Marine Name Role Phone Marii Mcmillan MD Primary Care Provider [phone] Reason for Visit * Reason Onset Date Comments Referral 03/12/2023 Encounter Details Date Type Department Care Team ([facility] Contact Info) Description 03/12/2023 Telephone [facility] [address] [place] [address] Marii Mcmillan MD [address] [place] [address] Referral Social History Tobacco Use Types Packs/Day [...] 03/12/2023 4:18 PM EST Referral re-faxed to [facility] gastro. * Telephone Encounter - Brooke Corral - 03/12/2023 1:49 PM EST Tc from [facility] office of [facility] gastroenterology has not received referral. documented in this encounter Plan of Treatment Upcoming Encounters Date Type Department Care Team (Late st Contact Info) Description 06/16/2024 3:30 PM EDT Office Visit [facility] [address] [place] [address] Gildardo Huertas MD [address] [place], [place] 08/05/2024 2:45 PM EDT Office Visit [facility] [address] [place], [place] [phone] Nita Steen FNP [address] [place] [address] 08/10/2024 9:30 AM EDT Clinical Support [facility] [address] [place], [place] [phone] Leelee Castaneda RN [address] [place], [place] documented as of this encounter Visit Diagnoses Not on filedocumented in this encounter Additional Health Concerns Assessment Noted Time PHQ-9 Depression Total Score: 10 023 2:09 PM EST documented as of this encounter Care Teams Firer Marine Relationship Specialty Start Date End Date Marii Mcmillan MD [address] [place] [address] PCP - General Family Medicine 07/11/21 Evelyne Green Pediatric NurseChair Post Machine Operator 12/09/23 documented as of this encounter
--- OUTSIDE RECORDS SUMMARY | 2024-06-16 09:46 | XMS_ITS | Encounter Summary ---
Author Organization [employer] Address [address] [place] [address] 7t [place] [address] Care Team Providers Care Lining Stamper Name Role Phone Marii Mcmillan MD Primary Care Provider Reason for Referral * Imaging (STAT) - Closed Specialty Diagnoses / Procedures Referred By Contac t Referred To Contact Radiology Diagnoses Mass of right inguinal region Procedures Us Pelvis complete Gildardo Huertas MD [address] [place] [address] Phone: tel: fax: [address] Phone: tel: fax: Referral ID Status Reason Start Date Expiration Date Visits Re quested Visits Authorized [id number] Closed 09/18/2022 09/18/2023 1 1 Encounter Details Date Type Department Care Team (Late st Contact Info) Description 09/18/2022 Orders Only [facility] [address] [place] [address] Gildardo Huertas MD [address] [place], [place] [phone] Mass of right inguinal region (Primary Dx) [...] [facility] st Contact Info) Description 06/16/2024 3:30 PM EDT Office Visit [facility] [address] [place] [address] Gildardo Huertas MD [address] [place] [address] 08/05/2024 2:45 PM EDT Office Visit [facility] [address] [place] [address] Nita Steen FNP [address] [place] [address] 08/10/2024 9:30 AM EDT Clinical Support [facility] [address] [place] [address] Leelee Castaneda RN [address] [place] [address] Scheduled Orders Name Type Priority Associated Diagnoses [...] EDT Narrative 09/25/2022 10:43 AM EDT ? [facility] ?[address] ?[place] [address] ? Ultrasound Report ? Signed ? Patient: Grimm,Manuel D ?MR#: [id number] ?? [id number] ? : 1960 ?Acct:[id number] ? Age/Sex: 62 / M ?ADM Date: 09/18/22 ? Loc: HO.US ? Attending Dr: Marii Mcmillan MD ? Ordering Physician: Marii Mcmillan MD ?? Date of Service: 09/18/22 ?? Procedure(s): US pelvic limited ?? Accession Number(s): [id number] ? cc: Mraii Mcmillan MD ? EXAMINATION: ?? US RIGHT [...] 1039 ? DD/ 1503 ? TD/TT: ? Steward/Stewardess Second Class: ? Procedure Note Salvador Richey - 09/25/[address] [address] Ultrasound Report Signed Patient: Manuel Grimm [facility]#: [id number] : 1Acct:[id number] Age/Sex: 62 / MADM Date: 09/18/22 Loc: HO.US Attending Dr: Marii Mcmillan MD Ordering Physician: Marii Mcmillan MD Date of Service: 09/18/22 Procedure(s): US pelvic limited Accession Number(s): [id number] cc: Marii Mcmillan MD EXAMINATION: US RIGHT [...] in OV> 09/25/22 1039 DD/ 1503 TD/TT: Steward/Stewardess Second Class: [facility] External Provider IMG US PROCEDURES Final Result documented in this encounter Visit Diagnoses Diagnosis Mass of right inguinal region- Primary documented in this encounter Additional Health Concerns Assessment Noted Time PHQ-9 Depression Total Score: 10 023 2:09 PM EST documented as of this encounter Care Teams Lining Stamper Relationship Specialty Start Date End Date Marii Mcmillan MD [address] [place] [address] PCP - General Family Medicine 07/11/21 Evelyne Green Product Marketing Programs ManagerCartography Teacher 12/09/23 documented as of this encounter
--- OUTSIDE RECORDS SUMMARY | 2024-06-16 09:46 | XMS_ITS | Encounter Summary ---
Author Organization [employer] Address [address] [facility] 7t [place] [address] Care Team Providers Care Administrative Associate Name Role Phone Marii Mcmillan MD Primary Care Provider [phone] Reason for Visit * Reason Onset Date Comments Referral 05/20/2022 Encounter Details Date Type Department Care Team ([facility] st Contact Info) Description 05/20/2022 Telephone [facility] [address] [place] [address] Marii Mcmillan MD [address] [place] [address] Referral Social History Tobacco Use Types Packs/Day [...] made on 02/04/2022. Please contact pt at [phone] documented in this encounter Plan of Treatment Upcoming Encounters Date Type Department Care Team (Late st Contact Info) Description 06/16/2024 3:30 PM EDT Office Visit [facility] [address] [place] [address] Gildardo Huertas MD [address] [place] [address] 08/05/2024 2:45 PM EDT Office Visit [facility] [address] [place] [address] Nita Steen FNP [address] [place] [address] 08/10/2024 9:30 AM EDT Clinical Support [facility] [address] [place] [address] Leelee Castaneda, REGINA [address] [place] [address] documented as of this encounter Visit Diagnoses Not on filedocumented in this encounter Care Teams Administrative Associate Relationship Specialty Start Date End Date Marii Mcmillan MD [address] [place] [address] PCP - General Family Medicine 07/11/21 Evelyne Green Cable Television Line TechnicianProtection Analyst 12/09/23 documented as of this encounter
--- OUTSIDE RECORDS SUMMARY | 2024-06-16 09:47 | XMS_ITS | Encounter Summary ---
Author Organization [employer] Address [address] [facility] 7t [place] [address] Care Team Providers Care Power Electronics Engineer Name Role Phone Marii Mcmillan MD Primary Care Provider [phone] Reason for Visit * Reason Comments Med Change Request Encounter Details Date Type Department Care Team ([facility] Contact Info) Description 05/29/2022 Refill [facility] [address] [place] [address] Marii Mcmillan MD [address] [place] [address] Takes dietary supplements Social History Tobacco Use [...] Department Care Team (Late Contact Info) Description 06/16/2024 3:30 PM EDT Office Visit [facility] [address] [place] [address] Gildardo Huertas MD [address] [place], [place] [phone] 08/05/2024 2:45 PM EDT Office Visit [facility] [address] [place] [address] Nita Steen FNP [address] [place], [place] [phone] 08/10/2024 9:30 AM EDT Clinical Support [facility] [address] [place], [place] [phone] Leelee Castaneda, REGINA [address] [place], [place] [phone] documented as of this encounter Visit Diagnoses Diagnosis Takes dietary supplements documented in this encounter Additional Health Concerns Assessment Noted Time PHQ-9 Depression Total Score: 10 023 2:09 PM EST documented as of this encounter Care Teams Power Electronics Engineer Relationship Specialty Start Date End Date Marii Mcmillan MD [address] [place] [address] PCP - General Family Medicine 07/11/21 Evelyne Green Roofing ForemanSkating Rink Manager 12/09/23 documented as of this encounter
--- OUTSIDE RECORDS SUMMARY | 2024-06-16 09:47 | XMS_ITS | Encounter Summary ---
Author Organization [employer] Address [address] [facility] 7t [place] [address] Care Team Providers Care Mason Tender Restoration Labor Name Role Phone Marii Mcmillan MD Primary Care Provider [phone] Reason for Visit * Reason Onset Date Comments Med Refill 01/28/2024 Encounter Details Date Type Department Care Team ([facility] st Contact Info) Description 01/28/2024 Telephone [facility] [address] [place] [address] Marii Mcmillan MD [address] [place] [address] Med Refill Social History Tobacco Use Types [...] 5-325 MG tablet To be sent to: [facility]/pharmacy #[id number] MARY CARIAS - [address] [place] [address] documented in this encounter Plan of Treatment Upcoming Encounters Date Type Department Care Team (Late st Contact Info) Description 06/16/2024 3:30 PM EDT Office Visit [facility] [address] [place] [address] Gildardo Huertas MD [address] [place] [address] 08/05/2024 2:45 PM EDT Office Visit [facility] [address] [place] [address] Nita Steen FNP [address] [place] [address] 08/10/2024 9:30 AM EDT Clinical Support [facility] [address] [place], [place] [phone] Leelee Castaneda, REGINA [address] [place], [place] [phone] documented as of this encounter Visit Diagnoses Not on filedocumented in this encounter Additional Health Concerns Assessment Noted Time PHQ-9 Depression Total Score: 10 023 2:09 PM EST documented as of this encounter Care Teams Mason Tender Restoration Labor Relationship Specialty Start Date End Date Marii Mcmillan MD [address] [place] [address] PCP - General Family Medicine 07/11/21 Evelyne Green LettererMedia Marketing Director 12/09/23 documented as of this encounter
--- OUTSIDE RECORDS SUMMARY | 2024-06-16 09:47 | XMS_ITS | Encounter Summary ---
Author Organization [employer] Address [address] [facility] 7t [place] [address] Care Team Providers Care Sales Management Trainee Name Role Phone Marii Mcmillan MD Primary Care Provider [phone] Reason for Visit * Reason Onset Date Comments Med Change Request 11/04/2023 Encounter Details Date Type Department Care Team ([facility] Contact Info) Description 11/04/2023 Telephone [facility] MEDICINE [address] [place] [address] Marii Mcmillan MD [address] [place] [address] Med Change Request Social History Tobacco Use [...] 3:30 PM EDT Office Visit [facility] MED & PEDS [address] [place] [address] Gildardo Huertas MD [address] [place] [address] 08/05/2024 2:45 PM EDT Office Visit [facility] MED & PEDS [address] [place] [address] Nita Steen FNP [address] [place] [address] 08/10/2024 9:30 AM EDT Clinical Support [facility] MED & PEDS [address] [place] [address] Leelee Castaneda, REGINA [address] [place] [address] documented as of this encounter Visit Diagnoses Not on filedocumented in this encounter Additional Health Concerns Assessment Noted Time PHQ-9 Depression Total Score: 10 023 2:09 PM EST documented as of this encounter Care Teams Sales Management Trainee Relationship Specialty Start Date End Date Marii Mcmillan MD [address] [place] [address] PCP - General Family Medicine 07/11/21 Evelyne Green Associate Professor Of AutomationLoose Hand Packer 12/09/23 documented as of this encounter
--- OUTSIDE RECORDS SUMMARY | 2024-06-16 09:47 | XMS_ITS | Encounter Summary ---
Author Organization [employer] Address [address] [facility] [address] 7[address] [place] [address] Care Team Providers Care Shift Commander Name Role Phone Marii Mcmillan MD Primary Care Provider [phone] Encounter Details Date Type Department Care Team (Late st Contact Info) Description 06/22/2023 Telephone [facility] MEDICINE [address] [place] [address] Marii Mcmillan MD [address] [place] [address] Social History Tobacco Use Types Packs/Day Years [...] Description 06/16/2024 3:30 PM EDT Office Visit [facility] MED & PEDS [address] [place] [address] Gildardo Huertas MD 505 [place] [address] 08/05/2024 2:45 PM EDT Office Visit [facility] MED & PEDS [address] [place] [address] Nita Steen FNP [address] [place] [address] 08/10/2024 9:30 AM EDT Clinical Support [facility] MED & PEDS [address] [place] [address] Leelee Castaneda, RN [address] [place] [address] documented as of this encounter Visit Diagnoses Not on filedocumented in this encounter Additional Health Concerns Assessment Noted Time PHQ-9 Depression Total Score: 10 023 2:09 PM EST documented as of this encounter Care Teams Shift Commander Relationship Specialty Start Date End Date Marii Mcmillan MD [address] [place] [address] PCP - General Family Medicine 07/11/21 Evelyne Green Director Of Capital GivingMixing Machine Operator 12/09/23 documented as of this encounter
--- OUTSIDE RECORDS SUMMARY | 2024-06-16 09:47 | XMS_ITS | Encounter Summary ---
Author Organization [employer] Address [address] [facility] [address] 7[address] [place] [address] Care Team Providers Care Package Car Driver Name Role Phone Marii Mcmillan MD Primary Care Provider [phone] Reason for Visit * Reason Onset Date Comments Appointment Request 01/11/2024 Encounter Details Date Type Department Care Team ([facility] Contact Info) Description 01/11/2024 Telephone [facility] MEDICINE [address] [place] [address] Marii Mcmillan MD [address] [place] [address] Appointment Request Social History Tobacco Use Types [...] from pt calling in regards to tomorrows RABIES INSPECTOR visit stating he is feeling sick and is wondering ifhe can change appt to a telephone visit. Please contact pt at [phone]. documented in this encounter Plan of Treatment Upcoming Encounters Date Type Department Care Team (Late st Contact Info) Description 06/16/2024 3:30 PM EDT Office Visit [facility] MED & PEDS [address] [place] [address] Gildardo Huertas MD [address] [place] [address] 08/05/2024 2:45 PM EDT Office Visit [facility] MED & PEDS [address] [place] [address] Nita Steen FNP [address] [place] [address] 08/10/2024 9:30 AM EDT Clinical Support [facility] MED & PEDS [address] [place] [address] Leelee Castaneda, REGINA [address] [place] [address] documented as of this encounter Visit Diagnoses Not on filedocumented in this encounter Additional Health Concerns Assessment Noted Time PHQ-9 Depression Total Score: 10 023 2:09 PM EST documented as of this encounter Care Teams Package Car Driver Relationship Specialty Start Date End Date Marii Mcmillan MD [address] [place] [address] PCP - General Family Medicine 07/11/21 Evelyne Green Irrigation LaborerPower Tool Repair Technician 12/09/23 documented as of this encounter
--- OUTSIDE RECORDS SUMMARY | 2024-06-16 09:47 | XMS_ITS | Encounter Summary ---
Author Organization [employer] Address [address] [facility] 7t [place] [address] Care Team Providers Care Radio Engineer Name Role Phone Marii Mcmillan MD Primary Care Provider [phone] Reason for Visit * Reason Comments Med Change Request Encounter Details Date Type Department Care Team ([facility] Contact Info) Description 05/27/2022 Refill [facility] MED & PEDS [address] [place] [address] Marii Mcmillan MD [address] [place] [address] Takes dietary supplements Social History Tobacco Use [...] Description 06/16/2024 3:30 PM EDT Office Visit [facility] MED & PEDS [address] [place] [address] Gildardo Huertas MD [address] [place], [place] [id number] 08/05/2024 2:45 PM EDT Office Visit [facility] MED & PEDS [address] [place] [address] Nita Steen FNP [address] [place], [place] [id number] 08/10/2024 9:30 AM EDT Clinical Support [facility] MED & PEDS [address] [place], [place] [phone] Leelee Castaneda, REGINA [address] [place], [place] [id number] documented as of this encounter Visit Diagnoses Diagnosis Takes dietary supplements documented in this encounter Additional Health Concerns Assessment Noted Time PHQ-9 Depression Total Score: 10 023 2:09 PM EST documented as of this encounter Care Teams Radio Engineer Relationship Specialty Start Date End Date Marii Mcmillan MD [address] [place] [address] PCP - General Family Medicine 07/11/21 Evelyne Green Ethnology ProfessorDirector Speech 12/09/23 documented as of this encounter
== END 2024-06-16 09:19 | disposition home or self-care (01) ==
LOC: HO.US 09:18
PROVIDERS: PCP Family Medicine; Visit Provider Internal Medicine Gastroenterology
DX: K75.81 Nonalcoholic steatohepatitis (NASH) (principal); K74.60 Unspecified cirrhosis of liver
CPT/HCPCS: 76705; 76981

== ENCOUNTER → 2024-06-16 09:20 | Outpatient (BNV) | payer MEDICAID, SELFPAY | PROVIDERS: PCP Family Medicine; Visit Provider Radiology Diagnostic Radiology | DX: K74.60 Unspecified cirrhosis of liver (principal) | CPT/HCPCS: 76705; 76981 ==

== ENCOUNTER 2024-08-12 13:13 | Outpatient (REF) | payer MEDICAID, SELFPAY ==
--- NOTE | ~2024-08-12 | US_ITS ---
EXAMINATION: US NONINVASIVE ASSESSMENT OF THE RIGHT LOWER EXTREMITY ARTERIES. CLINICAL INFORMATION: Chronic right ankle and right lower extremity swelling. Evaluate for peripheral artery disease. COMPARISON: None available. TECHNIQUE: Duplex Doppler techniques with waveform analysis and measurement of velocities in the common femoral, profunda femoris, superficial femoral, popliteal and tibial arteries were performed. In addition, ankle pulse volume recordings, ankle pressure measurements and ankle brachial indices were obtained of the lower extremity arterial system. The study was performed only at rest. FINDINGS: Atheromatous Plaque: Moderate non-shadowing calcific plaque seen in the right CRUSHING FOREMAN. RIGHT FEMORAL RUNOFF VELOCITIES: The right common femoral artery measures 136 cm/s and triphasic. The right profunda femoral artery is 77 cm/s and is triphasic. The right proximal superficial femoral artery measures 71 cm/s and triphasic. The right mid superficial femoral artery is 92 cm/s and triphasic. The right distal right superficial femoral artery measures 67 cm/s and is triphasic. The right popliteal velocity measures 65 cm/s and is triphasic. The right posterior tibial artery velocity measures 65 cm/s and is triphasic. The right peroneal artery velocity measures 50 cm/s and is triphasic. The right anterior tibial artery velocity measures 71.3 cm/s and is triphasic. The right dorsalis pedis artery velocity measures 96 cm/s and is triphasic. US/US arterial duplex LE RT IMPRESSION: 1. Moderate nonshadowing calcific plaque seen in the right CRUSHING FOREMAN. 2. Normal right lower extremity peripheral arterial testing with velocity measurements. Electronically signed by: Adama Simmons MD 08/19/2024 09:30 AM EDT
--- OUTSIDE RECORDS SUMMARY | 2024-08-12 13:24 | XMS_ITS | Encounter Summary ---
Author Organization [employer] Address [address] [facility] 7t [place] [address] Care Team Providers Care Bulb Assembler Name Role Phone Marii Mcmillan MD Primary Care Provider [phone] Reason for Visit * Reason Onset Date Comments Referral 03/12/2023 Encounter Details Date Type Department Care Team ([facility] Contact Info) Description 03/12/2023 Telephone [facility] CHC MED & PEDS [address] [place] [address] Marii Mcmillan MD [address] [place] [address] Referral Social History Tobacco Use Types Packs/Day [...] - 03/12/2023 1:49 PM EST Tc from [facility] office [place] [facility] [place] has not received referral. documented in this encounter Plan of Treatment Not on file documented as of this encounter Visit Diagnoses Not on filedocumented in this encounter Additional Health Concerns Assessment Noted Time PHQ-9 Depression Total Score: 10 023 2:09 PM EST documented as of this encounter Care Teams Bulb Assembler Relationship Specialty Start Date End Date Marii Mcmillan MD [address] [place] [address] PCP - General Family Medicine 07/11/21 Evelyne Green Diabetes NurseLens Silverer 12/09/23 documented as of this encounter
== END 2024-08-12 13:14 | disposition home or self-care (01) ==
LOC: HO.US 13:13
PROVIDERS: PCP Family Medicine; Visit Provider Registered Nurse
DX: Z00.00 Encounter for general adult medical examination without abnormal findings (principal); M25.551 Pain in right hip; M79.89 Other specified soft tissue disorders
CPT/HCPCS: 93926

== ENCOUNTER → 2024-08-12 13:16 | Outpatient (BNV) | payer MEDICAID, SELFPAY | PROVIDERS: PCP Family Medicine; Visit Provider Radiology Diagnostic Radiology | DX: I70.201 Unspecified atherosclerosis of native arteries of extremities, right leg (principal) | CPT/HCPCS: 93926 ==

== ENCOUNTER 2024-08-12 13:42 | Outpatient (REF) | payer MEDICAID, SELFPAY ==
[2024-08-12 14:34] LABS: Basophils Percent Auto 0.4 % (0-2); Mean Corpuscular Hemoglobin 30.6 pg (27.0-33.0); Red Cell Distribution Width 12.8 % (11.0-16.0)
[2024-08-12 14:36] LABS: Eosinophils Absolute Auto 0.4 X10*3/uL (0.0-0.4); Eosinophils Percent Auto 8.8 % (0-4); Hematocrit 38.9 % (42.0-52.0); Hemoglobin 13.6 g/dl (14.0-18.0); Imm Gran Abs Auto 0.01 X10*3/uL (0.00-0.03); Imm Gran Pct Auto 0.2 % (0.0-0.4); Lymphocytes Absolute Auto 1.1 X10*3/uL (1.2-4.9); Lymphocytes Percent Auto 22.8 % (20-40); Mean Corpuscular Volume 87.6 fL (80.0-98.0); Mean Platelet Volume 9.8 fL (9.4-12.4); Monocytes Absolute Auto 0.8 X10*3/uL (0.1-1.2); Monocytes Percent Auto 16.5 % (2-11); Neutrophils Absolute Auto 2.5 x10*3/uL (2.0-8.3); Neutrophils Percent Auto 51.3 % (45-73); Red Blood Count 4.44 X10*6/uL (4.60-5.80)
[2024-08-12 14:37] LABS: Platelet Count 89 X10*3/uL (160-400); White Blood Count 4.8 X10*3/uL (4.8-10.8)
[2024-08-12 14:39] LABS: Estimated Average Glucose 94 mg/dL; Hemoglobin A1c % 4.9 % (<6.0); Total Hemoglobin (HGBA1C) 3618.0138 umol/L
[2024-08-12 15:13] LABS: Erythrocyte Sedimentation Rate 12 MM/HR (0-15)
[2024-08-12 15:18] LABS: Creatinine Urine 275.93 mg/dL; Microalbum/Creatinine Ratio Ur 6.8 ug/mg cr (<30)
[2024-08-12 15:26] LABS: Rheumatoid Factor < 13.0 IU/mL (<15.0)
[2024-08-12 15:38] LABS: Prostate Specific Antigen 0.58 ng/mL (<0.05-4.0)
[2024-08-12 15:56] LABS: Alanine Aminotransferase 35 U/L (0-40); Albumin Level 4.2 g/dL (3.5-5.0); Anion Gap 9 (12-20); Aspartate Amino Transferase 44 U/L (5-37); Blood Urea Nitrogen 18 mg/dL (9-16); C Reactive Protein 0.45 mg/dL (< or = 0.50); Calcium 9.9 mg/dL (8.4-10.2); Carbon Dioxide 26 mmol/L (22-29); Chloride 107 mmol/L (96-108); Cholesterol 107 mg/dL (<200); Estimated Glomerular Filt Rate > 60; Glucose Random 101 mg/dL (60-115); HDL Cholesterol 37 mg/dL (>40); LDL Cholesterol Calculated 58 mg/dL (<100); Potassium 3.5 mmol/L (3.3-5.1); Sodium 138 mmol/L (135-145); Total Protein 6.9 g/dL (6.5-8.0); Triglycerides 61 mg/dL (<150)
[2024-08-12 16:13] LABS: TSH reflex Free T4 1.64 uIU/mL (0.32-4.0)
[2024-08-12 16:33] LABS: CT PCR NOT DETECTED (Not Detect.); NG PCR NOT DETECTED (Not Detect.)
[2024-08-12 17:07] LABS: Alkaline Phosphatase 66 U/L (39-117)
[2024-08-14 03:44] LABS: HBS Num1 10.03 mIU/mL (0-7.99); HBc Num1 0.13 S/CO (0.00-0.79); HBsAGNum1 0.33 S/CO (0.00-0.99); HIV AB/AG Nonreactive (Nonreactive); HIV Num 1 0.05 S/CO (0.00-0.99); Hepatitis B Core Antibody Nonreactive (Nonreactive); Hepatitis B Surface Antigen Negative (Negative)
[2024-08-14 04:50] LABS: HBS Num2 9.61 mIU/mL (0-7.99); HBS Num3 9.88 mIU/mL (0-7.99); ~Hepatitis B Surface Antibody GRAYZONE (Nonreactive)
[2024-08-14 13:24] LABS: RPR Rapid Plasma Reagin NON-REACTIVE (NON-REACTIVE)
[2024-08-15 14:58] LABS: HCV Log PCR <1.18 NOT DETECTED Log IU/mL (NOT DETECTED); HepC Viral Load <15 NOT DETECTED IU/mL (NOT DETECTED)
[2024-08-19 13:13] LABS: Anti Nuclear Antibody Screen POSITIVE (NEGATIVE)
== END 2024-08-12 13:43 | disposition home or self-care (01) ==
LOC: HO.LAB 13:42
PROVIDERS: PCP Family Medicine; Visit Provider Registered Nurse
DX: Z00.00 Encounter for general adult medical examination without abnormal findings (principal); M25.50 Pain in unspecified joint
CPT/HCPCS: 80053; 80061; 82043; 82570; 83036; 84153; 84443; 85025; 85652; 86038; 86039; 86140; 86431; 86592; 86704; 86706; 87340; 87389; 87491; 87522; 87591; 93926

== ENCOUNTER 2024-10-10 10:51 | Outpatient (REF) | payer MEDICAID, SELFPAY ==
--- OUTSIDE RECORDS SUMMARY | 2024-10-10 12:07 | XMS_ITS | Patient Health Record ---
Author Organization [facility] Address [address] [place] [address] Care Team Providers Care Corset Maker Name Role Phone Iman CAGLE, Maryjo Primary Care Provider Angel Mathew Jr Unavailable Allergies Allergen (clinical drug ingredient) Drug/Non Drug Allergy documented on EMR Reaction Allergy Type Onset Date Status Non-steroidal anti-inflammatory agent (FN) N-SAIDS (uncoded) Unknown Allergy Active Reason For Referral No Information Medications Medication SIG (Take, Route, Frequency, Duration) Notes Start Date End Date Status PROzac 40 MG 1 capsule in the mor mehul Orally Once a day Active Geodon 20 MG 1 capsule with food Orally once a day Active KlonoPIN 1 MG 1 tablet Orally thre e x a day Active Flomax 0.4 MG 1 Orally qd Acti ve Timolol Hemihydrate 0.5 % 1 drop into af fected eye Ophthalmic Once a day Active Clotrimazole 1 % 1 application to aff ected area Externally Once a day Active Vitamin K Active Aquaphor Externally Active Triamcinolone & Emollient 0.1 % 1 Externally Twice a day Act rama Colace 100 MG 1 capsule as needed Orally bid/prn Active Artificial Tear Acti ve Multi Vitamin/Minerals 1 1 Orally qd Active Problems Problem Type SNOMED Code ICD Code Onset Dates Problem Status W/U Status Risk Notes Problem [id number] Alcoholic cirrhosis of liver without ascites (K70.30) Active confirmed Plan Of Treatment No Information Insurance Providers Payer Name Payer Address Payer Phone Subscriber Number Group Number Insured Name Patient Relationship to Insured Coverage Start Date Coverage End Date [facility] [address] [address] [place], [place] [id number] LISA DWYER Self - patient is the insured Medical (General) History Medical History History ICD Code left bundle-branch block tuberculosis glaucoma anxiety/depression/mood disorder with pa ranoia cirrhosis substance abuse, and in remission asthma disc disease Surgical History Surgery Date(Month/Year) eye surgery ear surgery cholecystectomy hernia repair
--- OUTSIDE RECORDS SUMMARY | 2024-10-10 12:07 | XMS_ITS | Encounter Summary ---
Author Organization [employer] Address [address] [facility] 7t [place] [address] Care Team Providers Care Dredge Operator Supervisor Name Role Phone Marii Mcmillan MD Primary Care Provider [phone] Reason for Visit * Reason Onset Date Comments Referral 05/20/2022 Encounter Details Date Type Department Care Team ([facility] Contact Info) Description 05/20/2022 Telephone [facility] CHC MED & PEDS [address] [place] [address] Marii Mcmillan MD [address] [place] [address] Referral Social History Tobacco Use Types Packs/Day [...] PM EST documented as of this encounter Functional Status * Over the past 2 weeks, how often have you been bothered by any of the following problems? Question Answer Date of Assessment Author Patient Health Questionnaire -2 Score 3 05/23/2022 2:09 PM Marii Marmolejo MD * If you checked off any problems on this questionnaire so far, Question Answer Date of Assessment Author How difficult have these problems made it for you to do your work, take care of things at home, or get along with other people? Somewhat difficult 05/23/2022 2:09 PM Marii Marmolejo MD * Over the past 2 weeks, how often have you been bothered by any of the following problems? Question Answer Date of Assessment Author Little interest or pleasure in doing things More than half the days 05/23/2022 2:09 PM Marii Marmolejo MD Feeling down, depressed, or hopeless Several days 05/23/2022 2:09 PM Marii Marmolejo MD Trouble falling or staying asleep, or sleeping too much More than half the days 05/23/2022 2:09 PM Marii Marmolejo MD Feeling tired or having little energy Several days 05/23/2022 2:09 PM Marii Marmolejo MD Poor appetite or overeating Several days 05/23/2022 2:09 PM Marii Marmolejo MD Feeling bad about yourself - or that you are a failure or have let yourself or your family down Not at all 05/23/2022 2:09 PM Marii Marmolejo MD Trouble concentrating on things, such as reading the newspaper or watching television Several days 05/23/2022 2:09 PM Marii Marmolejo MD Moving or speaking so slowly that other people could have noticed? Or the opposite - being so fidgety or restless that you have been moving around a lot more than usual. More than half the days 05/23/2022 2:09 PM Marii Marmolejo MD Thoughts that you would be better off or hurting yourself in some way Not at all 05/23/2022 2:09 PM Marii Marmolejo MD Patient Health Questionnaire-9 Score 10 05/23/2022 2:09 PM Rosetta Marmolejo MD documented as of this encounter Miscellaneous Notes * Telephone Encounter - Lakia Ramirez - 05/20/2022 9:41 AM EST Tc from pt requesting status on four referrals that were made on 02/04/2022. Please contact pt at [phone] documented in this encounter Plan of Treatment Upcoming Encounters Date Type Department Care Team (Late st Contact Info) Description 10/21/2024 10:45 AM EDT Office Visit [facility] MED & PEDS [address] [place] [address] Marii Mcmillan MD [address] [place] [address] 11/09/2024 3:15 PM EDT Clinical Support [facility] MED & PEDS [address] [place] [address] Leelee Castaneda, REGINA [address] [place] [address] 03/13/2025 10:30 AM EST Clinical Support [facility] MED & PEDS [address] [place] [address] documented as of this encounter Visit Diagnoses Not on filedocumented in this encounter Care Teams Dredge Operator Supervisor Relationship Specialty Start Date End Date Marii Mcmillan MD [address] [place] [address] PCP - General Family Medicine 07/11/21 Evelyne Green Vending Machine Coin CollectorChange Management Lead 12/09/23 documented as of this encounter
--- OUTSIDE RECORDS SUMMARY | 2024-10-10 12:08 | XMS_ITS | Data Portability ---
Author Organization [place] - [facility], All[facility] Address [address] [place] [address] Care Team Providers Care Foreign Exchange Dealer Name Role Phone PAULINA EPSTEIN Primary Care Provider Assessment No assessment recorded. Plan of Treatment Reminders Order Date Submit Date Provider Last Modified By Organization Details Last Modified Time Details Appointments Establish ed 30 2024 01:30P M FAISAL SALAS Not available Not available Not available Lab None recorded. Referral None recorded. Procedures None recorded. Surgeries None recorded. Imaging None recorded. Medication Orders None recorded. Patient TargetsNo targets recorded. Patient InstructionsNo instructions recorded. Reason for Referral None Reported. Problems Name Problem SNOMED Code Status Onset Date Resolution Date Notes Provider Name and Address Organization Details Recorded Time Chronic mastoidi tis 44482279 Active 2013 Chronic mastoidi tis; Location : right CM S Risk: low risk CMS Treatmen t: establis hed problem (to examiner ): unstable or worsenin g Condit ion: unstable Note: Date Diagnose d: 4 3:25 PM (383.1) Not Available [facility] 4 02:24:10 Impacted cerumen 24341787 Active 2014 Impacted cerumen; Note: Date Diagnose d: 5 2:25 PM (380.4) Not Available [facility] 4 02:23:45 Chronic right mastoidi tis 09116517150 46698 Active 2015 Chronic mastoidi tis, right ear; Note: Date Diagnose d: 6 11:16 AM (H70.11) Not Available [facility] 4 02:24:01 Impacted cerumen in left ear 00006009062 91456 Active 2015 Impacted cerumen, left ear; Note: Date Diagnose d: 6 11:10 AM (H61.22) Not Available [facility] 4 02:23:56 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; Note: Date Diagnose d: 6 11:09 AM (383.33) Not Available [facility] 4 02:24:16 Granulat ions of mastoid cavity 666203805 Completed 201510/16/2023 Granulat ion of postmast oidectom y cavity, right ear; Note: Date Diagnose d: 6 11:16 AM (H95.121 ) Not Available [facility] 4 02:23:25 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 32659153353 47349 Active 2022 Total perforat ions of tympanic membrane , right ear; Note: Date Diagnose d: 3 10:38 AM (H72.821 ) Not Available [facility] 4 02:23:28 Postmast oidectom y complica tion 74175773 Active 2022 Other disorder s followin g mastoide ctomy, right ear; Note: Date Diagnose d: 3 10:33 AM (H95.191 ) Not Available [facility] 4 02:23:48 Bilatera l temporom andibula r joint pain 80223711132 834198 Active 2023 Arthralg ia of bilatera l temporom andibula r joint; Note: Date Diagnose d: 06/16/2023 11:02 AM (M26.623 ) Not Available [facility] 4 02:24:01 Neck pain 79664105 Active 2023 Cervical chelsie; Note: Date Diagnose d: 06/16/2023 11:02 AM (M54.2) Not Available [facility] 4 02:24:04 Chronic neck pain 99374598239 07 Active 2023 Loren bean [place] [facility] 4 13:58:40 Candidal otitis externa 33989785 Active 2024 ASI ROCA MD [address] [facility],[place] [address], [place], [address] , [facility] - [facility] 5 11:59:22 Problem Notes None recorded. Procedures Surgical History Date Name Laterality Status Provider Name and Address Organization Details Recorded Time 5 Debridement of Mastoid Cavity complex right completed SAI ROCA MD [address] [facility],[place] [address], [place], [address], [facility] - [facility] 10/04/2024 12:02:08 5 Debridement of Mastoid Cavity right completed SAI ROCA MD [address] [facility],[place] [address], [place], [address], [facility] - [facility] 06/01/2024 21:11:43 Imaging Results None recorded. Procedure Notes None recorded. Medical Equipment None Reported. Allergies Allergen ID Allergen Name Allergen Category Reaction Reaction Severity Criticality Documentation Date Start Date Code Code System Note Provider Name and Address Organization Details Recorded Time 255625 adhesive tape environme nt,medica tion Not available Not available Not available 05/31/2024 80393 UNK Cecelia bean [place] - [facility] 5 10:17:08 19930 Non-stero idal anti-infl ammatory agent (substanc e) medicatio n other Not available Not available 07/28/2023 54759 5008 SNOMED React ion: Unkno wn; Not Available [facility] 4 00:53:26 78432 Penicilli n Not available other Not available Not available 07/28/2023 71145 RxNorm React ion: Unkno wn; Not Available [facility] 4 00:53:42 Medications Name Sig Start Date Stop Date Status Note LastModified by Organization Details LastModified Time multivita min tablet active Medicati on ID: [id number] B rand Name: multivit eldridge Sen d Method: E-Prescr ibed Sub s Allowed: subs OK Speci al Instruct ion: TAKE ONE TABLET DAILY Me dication GenericN reinier: multivit eldridge Not Available Not Available Not Available Galzin 50 mg (zinc) capsule TAKE 1 CAPSULE BY MOUTH EVERY DAY active Not Available Not Available No t Available atorvasta tin 40 mg tablet TAKE [...] mg tablet 05/06 completed Medicati on ID: [id number] Dur ation Value: 10 Brand Name: clonazep [...] TOES AND WASH OFF 8-10 HOURS LATER. 10/04 completed Not Available Not Available Not Available triamcino lone acetonide 0.5 % topical [...] TAKE 1 TABLET BY MOUTH EVERY 6 HOURS IF NEEDED FOR SEVERE PAIN FOR UP TO 28 DAYS active Not Available Not Available No t Available ofloxacin 0.3 % ear drops Apply 5 drop into right ear twice a day 06/02 completed Medicati on ID: [id number] D uration Value: 10 Brand Name: ofloxaci n Send Method: E-Prescr ibed Sub s Allowed: subs OK Medic ationGen ericName : ofloxaci n Not Available Not Available Not Available ascorbic acid (vitamin C) 500 mg tablet TAKE 2 TABLETS BY MOUTH EVERY DAY active Not Available Not Available No t Available olanzapin e 20 mg disintegr ating tablet 10/18 completed Medicati on ID: 2325 Bra nd Name: olanzapi ne Send Method: E-Prescr ibed Sub s Allowed: subs OK Medic ationGen ericName : olanzapi ne Not Available Not Available Not Available [...] DROP INTO RIGHT EYE EVERY 12 HOURS 10/04 completed Not Available Not Available Not Available capsaicin 0.025 % topical cream APPLY TOPICALL Y 3 TIMES PER DAY FOR 7 DAYS DO NOT WASH AREA FOR AT LEAST 30 MIN AFTER APPLICAT ION 10/04 completed Not Available Not Available Not Available gabapenti n 100 mg capsule TAKE 1-2 CAPSULES (100-200 MG) BY MOUTH AT BEDTIME. active Not Available Not Available No t Available lorazepam 1 mg tablet TAKE 1 TAB (1 MG) ORALLY ONCE FOR ANXIETY TAKE 30 MINUTES PRIOR TO ARRIVAL TO [facility] E 06/02 completed Not Available Not Available Not Available olanzapin e 20 mg tablet 10/18 completed Medicati on ID: 2335 Dur ation Value: 30 Brand Name: olanzgus ne Send Method: E-Prescr ibed Sub s Allowed: subs OK Medic ationGen ericName : olanzapi ne Not Available Not Available Not Available [...] as directed 06/02 completed Medicati on ID: [id number] D uration Value: 10 Brand Name: Ciprodex [...] vitamin K 06/02 completed Medicati on ID: [id number] B rand Name: vitamin k Send Method: E-Prescr ibed Sub s Allowed: subs OK Medic ationGen ericName : vitamin k Not Available Not Available Not Available hydrochlo rothiazid e 12.5 mg tablet TAKE 1 TABLET (12.5 MG) BY MOUTH EVERY DAY IN THE MORNING [...] eg) Not Available Not Available Not Available cholecalc iferol (vitamin D3) 50 mcg (2,000 unit) capsule TAKE 1 CAPSULE BY MOUTH EVERY DAY active Not Available Not Available No t Available Vitals Date Recorded Body height Body mass index (BMI) Body weight Provider Name and Address Organization Details Last Updated DateTime 10/04/2024 167.64 cm 21 kg/m2 57989.01 g SONIA EDGAR [place] - [facility] 10/04/2024 11:42:53 Social History Question Answer Notes LastModified by Organizat ion Details LastModified Time Tobacco Smoking Status Former Smoker SAI ROCA MD [address] [place] [address], [address], [place] - [facility] 10/28/2023 19:37:28 When Did You Quit Smoking? 6-10yearssin celastcigare tte [id number] Information not available 10/28/2023 How Many Years Have You Smoked Tobacco? 45 Information not available 10/28/2023 Sex: Unknown Functional Status Question Answer Note LastModified by Organization D etails LastModified Time What is your level of alcohol consumption? None Information not available 10/28/2023 Mental Status None recorded. Family History Nothing Reported. Medical History Condition Response Anxiety Y Depression Y Asthma Y Glaucoma Y Past Encounters Encounter ID Performer Location Encounter Start Date Encounter Closed Date Diagnosis/Indication Diagnosis SNOMED-CT Code Diagnosis ICD10 Code Diagnosis Note [id number] SAI ROCA MD [facility] [address] [address] 06/02/2024 13:15:22 06/02/2024 13:58:49 Postmastoidectomy complication 52086559 H95.191 Right canal wall down mastoidect [place] cavity was debrided today under the binocular microscope . No signs of acute or chronic inflammati on. Patient will follow-up in 12 months for next debridemen t Total perf oration of right tympanic membrane 5539122907 300109 H72.821 Chronic neck pain 018485 8361 107 M54.2 Patient's previously noted neck pain has resolved. Physical exam of the neck is normal. No need to proceed with CAT scan. [id number] SAI ROCA MD [facility] [address] [address] 10/04/2024 11:27:11 10/04/2024 11:57:36 Postmastoidectomy complication 57871029 H95.191 Right canal wall down mastoidect [place] cavity was debrided today under the binocular microscope . A large amount of fungal/pur ulent debris was cleaned out today. In light of his underlying tympanic membrane defect, I elected to fill the mastoid cavity with clotrimazo le/betamet hasone cream, which he tolerated well. Patient instructed to maintain dry ear precaution s. No need for any topical drops. Follow-up with PA in 2 weeks to reassess the cavity and determine whether additional treatment will be needed. Total perf oration of right tympanic membrane 6186077565 925981 H72.821 Candidal o titis externa 58953053 B37.84 Health Concerns Section Related Observation LastModified by Organization Detai ls LastModified Time None Recorded Concern Status LastModified by Organization Details LastModified Time None Recorded Advance Directives Directive None Recorded Payers Insurance Date Sequence Insurance Name Policy Number Policy Gatica Covered Member ID Gatica Member ID Guarantor Name 10/04/2024 1 [place] [facility] Manuel Grimm [id number] Manuel Grimm 10/04/2024 1 [place] [facility] (MEDICAID) Manuel Grimm [id number] Manuel Grimm
[2024-10-10 14:46] LABS: MANUAL DIFF FLAG NO
[2024-10-10 14:56] LABS: Hematocrit 40.1 % (42.0-52.0); Hemoglobin 13.9 g/dl (14.0-18.0); Imm Gran Abs Auto 0.01 X10*3/uL (0.00-0.03); Imm Gran Pct Auto 0.2 % (0.0-0.4); Lymphocytes Absolute Auto 0.9 X10*3/uL (1.2-4.9); Mean Corpuscular HGB Conc 34.7 g/dl (31.0-36.0); Mean Corpuscular Hemoglobin 30.9 pg (27.0-33.0); Mean Corpuscular Volume 89.1 fL (80.0-98.0); NRBC Abs Auto 0.000 X10*3/uL (0.0-0.012); NRBC Pct Auto 0.0 /100WBC (0.0-0.2); Platelet Count 121 X10*3/uL (160-400); Red Blood Count 4.50 X10*6/uL (4.60-5.80); White Blood Count 4.2 X10*3/uL (4.8-10.8)
[2024-10-10 15:30] LABS: Iron 77 mcg/dL (45-160); Percent Iron Saturation 38 % (15-50); Total Iron Binding Capacity 202 mcg/dL (228-428); Unsaturated Iron Binding 125 ug/dL
[2024-10-10 16:02] LABS: Folate 10.6 ng/mL (> or = 4.0); Vitamin B12 581 pg/mL (200-900)
== END 2024-10-10 10:52 | disposition home or self-care (01) ==
LOC: HO.CHCLDS 10:51
PROVIDERS: Visit Provider Registered Nurse
DX: Z00.00 Encounter for general adult medical examination without abnormal findings (principal)
CPT/HCPCS: 36415; 82306; 82607; 82746; 83540; 85025

== ENCOUNTER → 2024-10-17 13:08 | Outpatient (BNVA) | payer MEDICAID, SELFPAY | PROVIDERS: PCP Family Medicine | DX: Z01.818 Encounter for other preprocedural examination (principal) ==

== ENCOUNTER 2024-10-19 | Outpatient (REF) | payer MEDICAID, SELFPAY ==
--- NOTE | 2024-10-19 | ECG_ITS ---
Test Reason : preop Blood Pressure : */* mmHG Vent. Rate : 58 BPM Atrial Rate : 58 BPM P-R Int : 136 ms QRS Dur : 126 ms QT Int : 440 ms P-R-T Axes : 11 6 79 degrees QTcB Int : 431 ms Sinus bradycardia Left bundle branch block Abnormal ECG When compared with ECG of 24-Feb-2015 04:25, No significant changes seen Referred By: Tarah Chowdhury Electronically Signed By: JAI SOLO
[2024-10-19 13:18] VITALS: BP 105/55; PULSE 61; RESP 20; O2SAT 97; BMI 20.3
--- NOTE | 2024-10-19 13:31 | HO.ANESPROP2 ---
HPI - Anesthesia Eval Consult details Narrative: Pending gen surg w/u for hernia 64yo M for Right Hip Total Replacement, 11/16/24 Medical clearance pending Cardiac optimized. Preop eval for LBBB, IVCD. Preop testing complete and deemed low risk. GI optimized. Follows [facility] for compensated ETOH cirrhosis (quit drinking years ago). Office eval 05/2024 states low risk for surgery, low risk of varices. No recent illness No CP/SOB with house work, minimal walking. Only limited by pain Asthma/COPD: Controlled, no rescue inhaler for years [facility] Active Problems Active Problems: All Active Problems Precordial chest pain (Acute) Preoperative cardiovascular examination (Acute) Osteoarthritis of right hip (Acute) Liver cirrhosis (Acute) Iliopsoas bursitis of right hip (Acute) Right groin pain (Acute) Pain in left shoulder (Acute) HERNANDO positive (Acute) Thrombocytopenia (Acute) Left bundle branch block (LBBB) (Acute) Hypertension (Acute) Cirrhosis (Acute) Past Medical History Medical History (Updated 10/19/24 @ 13:10 by Tayla Dickey RN) Cataracts, bilateral Wears dentures Legally blind in left eye, as defined in [place] Deafness in right ear Arthritis Back pain Hx of hepatitis C Hx of tuberculosis PTSD (post-traumatic stress disorder) COPD (chronic obstructive pulmonary disease) Asthma Left bundle branch block (LBBB) Thrombocytopenia Afib Glaucoma Hypertension Anxiety Depression Cirrhosis Family History Family History Mother Breast cancer Rheumatoid arthritis Family history of problems with anesthesia: No (Sister slow to wake) Surgical History Surgical History (Updated 10/19/24 @ 13:13 by Tayla Dickey RN) H/O colonoscopy Hx of hernia repair History of tooth extraction (~2002) History of cardiac catheterization (~2009) History of ear surgery (~1990) History of cholecystectomy (~2009) H/O abdominal surgery S/P LASIK surgery of both eyes History of Problems with Anesthesia: No Social History Social History Household Members: Friend(s) Household Members Other:: niece, adult Housing: House Are you a primary customer care assistant to a significant other at home: No Do you presently have visiting nurse or other home services: No 75 years or older and lives alone: No Patient Tobacco Use Status: Former Tobacco user Tobacco use type: Cigarette Years Smoked: quit age 57 Second Hand Smoke Exposure: Yes Substance Use Type: Marijuana service: No Current occupational status: disabled Meds Allergies Allergy/AdvReac Type Severity Reaction Status Date / Time aspirin (ASA) Allergy Severe told to Verified 10/19/24 13:15 not take due to beeding NSAIDS (Non-Steroidal Allergy Severe advised Verified 10/17/24 13:20 Anti-Inflamma not to take due to bleeding Penicillins (PENICILLINS) Allergy Severe Rash, hives Verified 10/17/24 13:20 codeine Allergy Intermediate Rash Unverified 10/17/24 13:21 naproxen (NAPROXEN) Allergy Intermediate Abdominal Verified 10/19/24 13:03 Pain tuberculin, purified protein Allergy Intermediate hx TB as a Verified 10/19/24 13:03 deriva (TB TEST) child acetaminophen (From TYLENOL) AdvReac Intermediate cannot Verified 10/19/24 13:15 take due to cirrhosis dx mesalamine (From ASACOL) AdvReac Intermediate worsening Verified 10/19/24 13:03 abdominal pain pseudoephedrine (From AdvReac Unknown advised Verified 10/19/24 13:15 SUDAFED) not to take-glaucoma dx Home Medications ?Medication ?Instructions ?Recorded ?Confirmed ?Last Taken ?Type atorvastatin 40 mg tablet (Lipitor) 1 tab PO QAM 08/26/21 10/19/24 Unknown History hydrochlorothiazide 12.5 mg tablet 1 tab PO QAM 08/26/21 10/19/24 Unknown History tamsulosin 0.4 mg capsule 1 cap PO QAM 08/26/21 10/19/24 Unknown History potassium citrate 10 mEq (1,080 10 meq PO QAM 06/27/22 10/19/24 Unknown History mg) tablet,extended release oxycodone-acetaminophen 5 mg-325 1 tab PO Q8H PRN severe pain 05/07/23 10/19/24 Unknown History mg tablet phytonadione (vitamin K1) 100 mcg 100 mcg PO QAM 05/09/24 10/19/24 Unknown History tablet turmeric root extract 150 1 tab PO QAM 05/09/24 10/19/24 Unknown History mg-clementina root extract 25 mg chewable tablet Exam Height,Weight and Vital Signs: Height 5 ft 6 in Weight 57.153 kg Last Vital Signs Pulse 61 10/19/24 13:18 Resp 20 10/19/24 13:18 BP 105/55 L 10/19/24 13:18 Pulse Ox 97 10/19/24 13:18 O2 Del Method Room Air 10/19/24 13:18 Narrative Narrative: EKG 10/2024 Vent. Rate : 58 BPM Atrial Rate : 58 BPM P-R Int : 136 ms QRS Dur : 126 ms QT Int : 440 ms P-R-T Axes : 11 6 79 degrees QTcB Int : 431 ms Sinus bradycardia Left bundle branch block Abnormal ECG When compared with ECG of 24-Feb-2015 04:25, No significant changes seen ECHO 05/2024 Conclusions: - The left ventricular systolic function is normal. The calculated ejection fraction is 59% by biplane method. - No obvious valvular pathology seen on this study. NM cardiolite stress test 05/2024 Impression: 1. Myocardial perfusion imaging study shows probably normal myocardial perfusion. 2. Gated LVEF is 43% during stress, but visually normal. 64% during rest. Correlate with echocardiogram. 3. Transient ischemic dilatation not present. Airway Mallampati Class: II TM Dist: >3cm Neck ROM: Full Denture: Upper and Lower Heart: RRR Lungs: CTAB Assessment and Plan Assessment Anesthesia Assessment: Anesthesia Plan Discussed and PAT Visit Final Anesthetic Review Family History of Problems with Anesthesia: No (Sister slow to wake) History of Problems with Anesthesia: No
[2024-10-19 17:02] LABS: MRSA Nasal PCR NEGATIVE (Negative); SA Nasal PCR NEGATIVE (Negative)
--- OUTSIDE RECORDS SUMMARY | 2024-11-21 11:13 | XMS_ITS | Encounter Summary ---
Author Organization [employer] Address [address] [place] [address] 7t [place] [address] Care Team Providers Care Change Release Manager Name Role Phone Marii Mcmillan MD Primary Care Provider [phone] Reason for Visit * Reason Comments Med Refill Encounter Details Date Type Department Care Team (Late Contact Info) Description 04/08/2022 Refill [facility] MED & PEDS [address] [place] [address] Marii Mcmillan MD [address] [place] [address] Vitamin deficiency, unspecified Social History Tobacco Use [...] Department Care Team (Late Contact Info) Description 01/30/2025 1:00 PM EST Telemedicine [facility] MED & PEDS [address] [place] [address] Leelee Castaneda RN 505 [place] [address] 03/13/2025 10:30 AM EST Clinical Support [facility] CHC MED & PEDS [address] [place] [address] documented as of this encounter Visit Diagnoses Diagnosis Vitamin deficiency, unspecified documented in this encounter Care Teams Change Release Manager Relationship Specialty Start Date End Date Marii Mcmillan MD [address] [place] [address] PCP - General Family Medicine 07/11/21 Evelyne Green In Store RepresentativeWood Room Hand 12/09/23 documented as of this encounter
--- OUTSIDE RECORDS SUMMARY | 2024-11-21 11:13 | XMS_ITS | Encounter Summary ---
Author Organization [employer] Address [address] [place] [address] 7 [place] [address] Care Team Providers Care Manager Neonatal Name Role Phone Marii Mcmillan MD Primary Care Provider [phone] Reason for Visit * Reason Onset Date Comments Referral 05/20/2022 Encounter Details Date Type Department Care Team ([facility] Contact Info) Description 05/20/2022 Telephone [facility] CHC MED & PEDS [address] [place] [address] Marii Mcmillan MD [address] [place] [address] Referral Social History Tobacco Use Types Packs/Day [...] Health Questionnaire-9 Score 10 05/23/2022 2:09 PM EST Rosetta Mcmillan MD documented as of this encounter Miscellaneous Notes * Telephone Encounter - Lakia Ramirez - 05/20/2022 9:41 AM EST Tc from pt requesting status on four referrals that were made on 02/04/2022. Please contact pt at [phone] documented in this encounter Plan of Treatment Upcoming Encounters Date Type Department Care Team (Late st Contact Info) Description 01/30/2025 1:00 PM EST Telemedicine [facility] MED & PEDS [address] [place] [address] Leelee Castaneda, REGINA 505 [place] [address] 03/13/2025 10:30 AM EST Clinical Support [facility] MED & PEDS [address] [place] [address] documented as of this encounter Visit Diagnoses Not on filedocumented in this encounter Care Teams Manager Neonatal Relationship Specialty Start Date End Date Marii Mcmillan MD [address] [place] [address] PCP - General Family Medicine 07/11/21 Evelyne Green Human Resources Benefits CoordinatorDrug Counselor 12/09/23 documented as of this encounter
--- OUTSIDE RECORDS SUMMARY | 2024-11-21 11:14 | XMS_ITS | Encounter Summary ---
Author Organization [employer] Address [address] [place] [address] 7t [place] [address] Care Team Providers Care Vamp Cut Out Worker Name Role Phone Marii Mcmillan MD Primary Care Provider [phone] Reason for Visit * Reason Comments Med Change Request Encounter Details Date Type Department Care Team ([facility] Contact Info) Description 05/29/2022 Refill [facility] CHC MED & PEDS [address] [place] [address] Marii Mcmillan MD [address] [place] [address] Takes dietary supplements Social History Tobacco Use [...] Upcoming Encounters Date Type Department Care Team ([facility] st Contact Info) Description 01/30/2025 1:00 PM EST Telemedicine [facility] MED & PEDS [address] [place] [address] Leelee Castaneda, RN [address] [place] [address] 03/13/2025 10:30 AM EST Clinical Support [facility] MED & PEDS [address] [place] [address] documented as of this encounter Visit Diagnoses Diagnosis Takes dietary supplements documented in this encounter Additional Health Concerns Assessment Noted Time PHQ-9 Depression Total Score: 10 023 2:09 PM EST documented as of this encounter Care Teams Vamp Cut Out Worker Relationship Specialty Start Date End Date Marii Mcmillan MD [address] [place] [address] PCP - General Family Medicine 07/11/21 Evelyne Green Manager SolarClinical Lab Technologist 12/09/23 documented as of this encounter
--- OUTSIDE RECORDS SUMMARY | 2024-11-21 11:14 | XMS_ITS | Encounter Summary ---
Author Organization [employer] Address [address] [facility] 7t [place] [address] Care Team Providers Care Tellers Supervisor Name Role Phone Marii Mcmillan MD Primary Care Provider [phone] Reason for Visit * Reason Onset Date Comments Appointment Request 04/22/2023 Encounter Details Date Type Department Care Team ([facility] Contact Info) Description 04/22/2023 Telephone [facility] CHC MED & PEDS [address] [place] [address] Marii Mcmillan MD [address] [place] [address] Appointment Request Social History Tobacco Use Types [...] was scheduled for SDC apt today in [facility] but, due to car not starting [...] fever. Pt is offered to come to [facility] today or tomorrow morning but, Pt would rather come to [facility]. Pt is advised to call back [...] (Car wont Start) Please contact pt @ [phone] documented in this encounter Plan of Treatment Upcoming Encounters Date Type Department Care Team (Late st Contact Info) Description 01/30/2025 1:00 PM EST Telemedicine [facility] MED & PEDS [address] [place] [address] Leelee Castaneda RN [address] [place] [address] 03/13/2025 10:30 AM EST Clinical Support [facility] MED & PEDS [address] [place] [address] documented as of this encounter Visit Diagnoses Not on filedocumented in this encounter Additional Health Concerns Assessment Noted Time PHQ-9 Depression Total Score: 10 023 2:09 PM EST documented as of this encounter Care Teams Tellers Supervisor Relationship Specialty Start Date End Date Marii Mcmillan MD [address] [place] [address] PCP - General Family Medicine 07/11/21 Evelyne Green AmalgamatorSenior Search Marketing Analyst 12/09/23 documented as of this encounter
--- OUTSIDE RECORDS SUMMARY | 2024-11-21 11:14 | XMS_ITS | Encounter Summary ---
Author Organization [employer] Address [address] [facility] 7t [place] [address] Care Team Providers Care Real Estate Professor Name Role Phone Marii Mcmillan MD Primary Care Provider [phone] Reason for Visit * Reason Onset Date Comments Med Refill 08/25/2024 Encounter Details Date Type Department Care Team ([facility] st Contact Info) Description 08/25/[address] [facility] MEDICINE [address] [place] [address] Marii Mcmillan MD [address] [place] [address] Med Refill Social History Tobacco Use Types [...] * Telephone Encounter - Hermilo Lopez - 08/25/2024 10:29 AM EDT TC from pt requesting medication refill. Medications needing refill: oxyCODONE-acetaminophen (Percocet) 5-325 MG tablet To be sent to: [facility]/pharmacy #[id number] MARY CARIAS - [address] [facility] documented in this encounter Plan of Treatment Upcoming Encounters Date Type Department Care Team ([facility] st Contact Info) Description 01/30/2025 1:00 PM EST Telemedicine [facility] MED & PEDS [address] [place] [address] Leelee Castaneda RN 505 [place] [address] 03/13/2025 10:30 AM EST Clinical Support [facility] MED & PEDS [address] [place] [address] documented as of this encounter Visit Diagnoses Not on filedocumented in this encounter Additional Health Concerns Assessment Noted Time PHQ-9 Depression Total Score: 10 023 2:09 PM EST documented as of this encounter Care Teams Real Estate Professor Relationship Specialty Start Date End Date Marii Mcmillan MD [address] [place] [address] PCP - General Family Medicine 07/11/21 Evelyne Green Financial SecretaryReverse Engineer 12/09/23 documented as of this encounter
--- OUTSIDE RECORDS SUMMARY | 2024-11-21 11:14 | XMS_ITS | Encounter Summary ---
Author Organization [employer] Address [address] [place] [address] 7t [place] [address] Care Team Providers Care Blood Bank Worker Name Role Phone Marii Mcmillan MD Primary Care Provider [phone] Reason for Visit * Reason Comments Med Change Request Encounter Details Date Type Department Care Team ([facility] Contact Info) Description 05/27/2022 Refill [facility] CHC MED & PEDS [address] [place] [address] Marii Mcmillan MD [address] [place] [address] Takes dietary supplements Social History Tobacco Use [...] Upcoming Encounters Date Type Department Care Team ([facility] st Contact Info) Description 01/30/2025 1:00 PM EST Telemedicine [facility] MED & PEDS [address] [place] [address] Leelee Castaneda, RN [address] [place] [address] 03/13/2025 10:30 AM EST Clinical Support [facility] MED & PEDS [address] [place] [address] documented as of this encounter Visit Diagnoses Diagnosis Takes dietary supplements documented in this encounter Additional Health Concerns Assessment Noted Time PHQ-9 Depression Total Score: 10 023 2:09 PM EST documented as of this encounter Care Teams Blood Bank Worker Relationship Specialty Start Date End Date Marii Mcmillan MD [address] [place] [address] PCP - General Family Medicine 07/11/21 Evelyne Green Flake DrierYeast Cake Cutter 12/09/23 documented as of this encounter
--- OUTSIDE RECORDS SUMMARY | 2024-11-21 11:14 | XMS_ITS | Encounter Summary ---
Author Organization [employer] Address [address] [facility] 7t [place] [address] Care Team Providers Care Polymerization Helper Name Role Phone Marii Mcmillan MD Primary Care Provider [phone] Encounter Details Date Type Department Care Team ([facility] Contact Info) Description 08/18/2024 Orders Only [facility] CHC MED & PEDS [address] [place], [place] [id number] Nita Steen FNP 505 [place] [address] Social History Tobacco Use Types Packs/Day Years [...] Upcoming Encounters Date Type Department Care Team ([facility] st Contact Info) Description 01/30/2025 1:00 PM EST Telemedicine [facility] MED & PEDS [address] [place] [address] Leelee Castaneda RN [address] [place] [address] 03/13/2025 10:30 AM EST Clinical Support [facility] MED & PEDS [address] [place] [address] documented as of this encounter Visit Diagnoses Not on filedocumented in this encounter Additional Health Concerns Assessment Noted Time PHQ-9 Depression Total Score: 10 023 2:09 PM EST documented as of this encounter Care Teams Polymerization Helper Relationship Specialty Start Date End Date Marii Mcmillan MD [address] [place] [address] PCP - General Family Medicine 07/11/21 Evelyne Green Ore WasherWax Pumper 12/09/23 documented as of this encounter
--- OUTSIDE RECORDS SUMMARY | 2024-11-21 11:14 | XMS_ITS | Encounter Summary ---
Author Organization [employer] Address [address] [facility] 7t [place] [address] Care Team Providers Care Pan Pusher Name Role Phone Marii Mcmillan MD Primary Care Provider [phone] Reason for Visit * Reason Onset Date Comments Med Refill 01/28/2024 Encounter Details Date Type Department Care Team ([facility] st Contact Info) Description 01/28/2024 Telephone [facility] MEDICINE [address] [place] [address] Marii Mcmillan MD 505 [place] [address] Med Refill Social History Tobacco Use Types [...] MG tablet To be sent to: [facility]/pharmacy #[id number] MARY CARIAS - [address] documented in this encounter Plan of Treatment Upcoming Encounters Date Type Department Care Team ([facility] st Contact Info) Description 01/30/2025 1:00 PM EST Telemedicine [facility] MED & PEDS [address] [place] [address] Leelee Castaneda, RN [address] [place] [address] 03/13/2025 10:30 AM EST Clinical Support [facility] CHC MED & PEDS [address] [place] [address] documented as of this encounter Visit Diagnoses Not on filedocumented in this encounter Additional Health Concerns Assessment Noted Time PHQ-9 Depression Total Score: 10 023 2:09 PM EST documented as of this encounter Care Teams Pan Pusher Relationship Specialty Start Date End Date Marii Mcmillan MD [address] [place] [address] PCP - General Family Medicine 07/11/21 Evelyne Green Ballpoint Pen Assembly Machine OperatorAir Moving Technician 12/09/23 documented as of this encounter
--- OUTSIDE RECORDS SUMMARY | 2024-11-21 11:14 | XMS_ITS | Encounter Summary ---
Author Organization [employer] Address [address] [facility] 7t [place] [address] Care Team Providers Care Dyeing Machine Feeder Name Role Phone Marii Mcmillan MD Primary Care Provider [phone] Reason for Visit * Reason Onset Date Comments Appointment Request 08/15/2024 Encounter Details Date Type Department Care Team ([facility] Contact Info) Description 08/15/2024 Telephone [facility] MEDICINE [address] [place] [address] Marii Mcmillan MD [address] [place], [place] [id number] Appointment Request Social History Tobacco Use Types [...] * Telephone Encounter - Hermilo Lopez - 08/15/2024 9:31 AM EDT Tc from pt requesting to reschedule MECHANICAL PROCESS ENGINEER visit. Please contact pt at [phone]. documented in this encounter Plan of Treatment Upcoming Encounters Date Type Department Care Team (Late st Contact Info) Description 01/30/2025 1:00 PM EST Telemedicine [facility] MED & PEDS [address] [place] [address] Leelee Castaneda, RN 505 [place] [address] 03/13/2025 10:30 AM EST Clinical Support [facility] MED & PEDS [address] [place] [address] documented as of this encounter Visit Diagnoses Not on filedocumented in this encounter Additional Health Concerns Assessment Noted Time PHQ-9 Depression Total Score: 10 023 2:09 PM EST documented as of this encounter Care Teams Dyeing Machine Feeder Relationship Specialty Start Date End Date Marii Mcmillan MD [address] [place] [address] PCP - General Family Medicine 07/11/21 Evelyne Green Serology TechnicianTrack Walker 12/09/23 documented as of this encounter
--- OUTSIDE RECORDS SUMMARY | 2024-11-21 11:14 | XMS_ITS | Encounter Summary ---
Author Organization [employer] Address [address] [facility] 7t [place] [address] Care Team Providers Care Online Publisher Name Role Phone Marii Mcmillan MD Primary Care Provider [phone] Reason for Visit * Reason Onset Date Comments CHART PREP 01/26/2024 Encounter Details Date Type Department Care Team ([facility] Contact Info) Description 01/26/2024 Telephone [facility] MED & PEDS [address] [place] [address] Marii Mcmillan MD [address] [place] [address] CHART PREP Social History Tobacco Use Types [...] EST Telemedicine [facility] MED & PEDS [address] [place] [address] Leelee Castaneda, RN [address] [place] [address] 03/13/2025 10:30 AM EST Clinical Support [facility] MED & PEDS [address] [place] [address] documented as of this encounter Visit Diagnoses Diagnosis Polyarthralgia Pain in joint, multiple sites documented in this encounter Additional Health Concerns Assessment Noted Time PHQ-9 Depression Total Score: 10 023 2:09 PM EST documented as of this encounter Care Teams Online Publisher Relationship Specialty Start Date End Date Marii Mcmillan MD [address] [place] [address] PCP - General Family Medicine 07/11/21 Evelyne Green Group Rooms CoordinatorIt Risk Advisor 12/09/23 documented as of this encounter
--- OUTSIDE RECORDS SUMMARY | 2024-11-21 11:14 | XMS_ITS | Encounter Summary ---
Author Organization [employer] Address 75 [facility] 7t [place] [address] Care Team Providers Care Machinist Supervisor Name Role Phone Marii Mcmillan MD Primary Care Provider [phone] Encounter Details Date Type Department Care Team ([facility] Contact Info) Description 06/22/2023 Telephone [facility] MEDICINE [address] [place] [address] Marii Mcmillan MD 505 [place], [place] [id number] Social History Tobacco Use Types Packs/Day Years [...] Info) Description 01/30/2025 1:00 PM EST Telemedicine [facility] MED & PEDS [address] [place] [address] Leelee Castaneda RN 505 [place] [address] 03/13/2025 10:30 AM EST Clinical Support [facility] MED & PEDS [address] [place] [address] documented as of this encounter Visit Diagnoses Not on filedocumented in this encounter Additional Health Concerns Assessment Noted Time PHQ-9 Depression Total Score: 10 023 2:09 PM EST documented as of this encounter Care Teams Machinist Supervisor Relationship Specialty Start Date End Date Marii Mcmillan MD [address] [place] [address] PCP - General Family Medicine 07/11/21 Evelyne Green Telegraphic Instrument SupervisorDye Automation Operator 12/09/23 documented as of this encounter
--- OUTSIDE RECORDS SUMMARY | 2024-11-21 11:14 | XMS_ITS | Encounter Summary ---
Author Organization [employer] Address 75 [facility] 7t [place] [address] Care Team Providers Care District Attorney Name Role Phone Marii Mcmillan MD Primary Care Provider [phone] Encounter Details Date Type Department Care Team (Latest Contact Info) Description 10/26/2024 Results Follow-Up [facility] MED & PEDS [address] [place] [address] Nita Steen, JALEN 505 [place] [address] Vitamin D, 25-Hydroxy, Total, Immunoassay, Vitamin B12/Folate, Serum Panel, Iron And Total Iron Binding Capacity, CBC auto differential Social History Tobacco Use Types Packs/Day Years [...] Info) Description 01/30/2025 1:00 PM EST Telemedicine [facility] MED & PEDS [address] [place] [address] Leelee Castaneda, REGINA 505 [place] [address] 03/13/2025 10:30 AM EST Clinical Support [facility] MED & PEDS 505 [place] [address] documented as of this encounter Visit Diagnoses Not on filedocumented in this encounter Additional Health Concerns Assessment Noted Time PHQ-9 Depression Total Score: 10 023 2:09 PM EST documented as of this encounter Care Teams District Attorney Relationship Specialty Start Date End Date Marii Mcmillan MD [address] [place] [address] PCP - General Family Medicine 07/11/21 Evelyne Green Team Leader/Research PsychologistPhysical Therapy Supervisor 12/09/23 documented as of this encounter
--- OUTSIDE RECORDS SUMMARY | 2024-11-21 11:14 | XMS_ITS | Encounter Summary ---
Author Organization [employer] Address 75 [facility] 7t [place] [address] Care Team Providers Care Security Assessor Name Role Phone Marii Mcmillan MD Primary Care Provider [phone] Reason for Visit * Reason Onset Date Comments Appointment Request 01/11/2024 Encounter Details Date Type Department Care Team ([facility] Contact Info) Description 01/11/[address] 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 Please contact pt at [phone]. documented in this encounter Plan of Treatment Upcoming Encounters Date Type Department Care Team (Late st Contact Info) Description 01/30/2025 1:00 PM EST Telemedicine [facility] MED & PEDS [address] [place] [address] Leelee Castaneda, REGINA 505 [place] [address] 03/13/2025 10:30 AM EST Clinical Support [facility] MED & PEDS [address] [place] [address] documented as of this encounter Visit Diagnoses Not on filedocumented in this encounter Additional Health Concerns Assessment Noted Time PHQ-9 Depression Total Score: 10 023 2:09 PM EST documented as of this encounter Care Teams Security Assessor Relationship Specialty Start Date End Date Marii Mcmillan MD [address] [place] [address] PCP - General Family Medicine 07/11/21 Evelyne Green Certified Hyperbaric TechnicianStone Processing Machine Operator 12/09/23 documented as of this encounter
--- OUTSIDE RECORDS SUMMARY | 2024-11-21 11:14 | XMS_ITS | Encounter Summary ---
Author Organization [employer] Address 75 [facility] 7t [place] [address] Care Team Providers Care Reduction Furnace Operator Name Role Phone Marii Mcmillan MD Primary Care Provider [phone] Reason for Visit * Reason Onset Date Comments Med Change Request 11/04/2023 Encounter Details Date Type Department Care Team ([facility] st Contact Info) Description 11/04/2023 Telephone [facility] MEDICINE 230 [place] [address] Marii Mcmillan MD 505 [place] [address] Med Change Request Social History Tobacco Use [...] 01/30/2025 1:00 PM EST Telemedicine [facility] MED & PEDS 505 [place] [address] Leelee Castaneda RN [address] [place] [address] 03/13/2025 10:30 AM EST Clinical Support [facility] MED & PEDS [address] [place] [address] documented as of this encounter Visit Diagnoses Not on filedocumented in this encounter Additional Health Concerns Assessment Noted Time PHQ-9 Depression Total Score: 10 023 2:09 PM EST documented as of this encounter Care Teams Reduction Furnace Operator Relationship Specialty Start Date End Date Marii Mcmillan MD [address] [place] [address] PCP - General Family Medicine 07/11/21 Evelyne Green Rehabilitation CounselorSupervisor Microfilm Duplicating Unit 12/09/23 documented as of this encounter
--- OUTSIDE RECORDS SUMMARY | 2024-11-21 11:14 | XMS_ITS | Encounter Summary ---
Author Organization [employer] Address 75 [facility] 7t [place] [address] Care Team Providers Care Clinical Pharmacy Specialist Name Role Phone Marii Mcmillan MD Primary Care Provider [phone] Reason for Visit * Reason Onset Date Comments Med Refill 10/25/2024 Encounter Details Date Type Department Care Team ([facility] st Contact Info) Description 10/25/2024 Telephone [facility] MEDICINE 230 [place] [address] Marii Mcmillan MD 505 [place] [address] Med Refill Social History Tobacco Use Types [...] encounter Miscellaneous Notes * Telephone Encounter - Manasa Ontiveros - 10/25/2024 2:49 PM EDT TC from pt requesting medication refill. Medications needing refill : - oxyCODONE-acetaminophen (Percocet) 5-325 MG tablet To be sent to: - [facility]/pharmacy #[id number] MARY CARIAS - [address] [place] [address] documented in this encounter Plan of Treatment Upcoming Encounters Date Type Department Care Team ([facility] st Contact Info) Description 01/30/2025 1:00 PM EST Telemedicine [facility] MED & PEDS 505 [place] [address] Leelee Castaneda RN 505 [place] [address] 03/13/2025 10:30 AM EST Clinical Support [facility] MED & PEDS 505 [place] [address] documented as of this encounter Visit Diagnoses Not on filedocumented in this encounter Additional Health Concerns Assessment Noted Time PHQ-9 Depression Total Score: 10 023 2:09 PM EST documented as of this encounter Care Teams Clinical Pharmacy Specialist Relationship Specialty Start Date End Date Marii Mcmillan MD 230 [place] [address] PCP - General Family Medicine 07/11/21 Evelyne Green Furnace OperatorTransition Teacher 12/09/23 documented as of this encounter
--- OUTSIDE RECORDS SUMMARY | 2024-11-21 11:14 | XMS_ITS | Encounter Summary ---
Author Organization [employer] Address 75 [facility] 7t [place] [address] Care Team Providers Care Validation Architect Name Role Phone Marii Mcmillan MD Primary Care Provider [phone] Reason for Visit * Reason Onset Date Comments Med Refill 06/27/2024 Encounter Details Date Type Department Care Team ([facility] st Contact Info) Description 06/27/[address] [facility] MEDICINE [address] [place] [address] Marii Mcmillan MD 505 [place] [address] Med Refill Social History Tobacco Use Types [...] encounter Miscellaneous Notes * Telephone Encounter - Aparna Duffy - 06/27/2024 8:40 AM EDT TC from pt requesting medication refill. Medications needing refill : oxyCODONE-acetaminophen (Percocet) 5-325 MG tablet To be sent to: [facility]/pharmacy #[id number] MARY CARIAS - [address] [facility] documented in this encounter Plan of Treatment Upcoming Encounters Date Type Department Care Team ([facility] st Contact Info) Description 01/30/2025 1:00 PM EST Telemedicine [facility] MED & PEDS 505 [place] [address] Leelee Castaneda RN 505 [place] [address] 03/13/2025 10:30 AM EST Clinical Support [facility] MED & PEDS 505 [place] [address] documented as of this encounter Visit Diagnoses Not on filedocumented in this encounter Additional Health Concerns Assessment Noted Time PHQ-9 Depression Total Score: 10 023 2:09 PM EST documented as of this encounter Care Teams Validation Architect Relationship Specialty Start Date End Date Marii Mcmillan MD [address] [place] [address] PCP - General Family Medicine 07/11/21 Evelyne Green Marking Room SupervisorCooking Casing And Drying Supervisor 12/09/23 documented as of this encounter
--- OUTSIDE RECORDS SUMMARY | 2024-11-21 11:14 | XMS_ITS | Encounter Summary ---
Author Organization [employer] Address 75 [facility] 7t [place] [address] Care Team Providers Care Branch Manager Trainee Name Role Phone Marii Mcmillan MD Primary Care Provider [phone] Reason for Visit * Reason Onset Date Comments PT1 05/15/2023 Encounter Details Date Type Department Care Team ([facility] st Contact Info) Description 05/15/2023 Telephone [facility] MEDICINE 230 [place] [address] Marii Mcmillan MD [address] [place], [place] [id number] PT1 Social History Tobacco Use Types Packs/Day [...] visits) ( x monthly, weekly, daily) Address: [address] [place] [address] Facility[facility] Wheel Chair: NO Software Applications Designer Needed: NO Address and phone confirmed by Evelyne CHAWLA documented in this encounter Plan of Treatment Upcoming Encounters Date Type Department Care Team ([facility] st Contact Info) Description 01/30/2025 1:00 PM EST Telemedicine [facility] MED & PEDS [address] [place] [address] Leelee Castaneda, REGINA 505 [place] [address] 03/13/2025 10:30 AM EST Clinical Support [facility] MED & PEDS [address] [place] [address] documented as of this encounter Visit Diagnoses Not on filedocumented in this encounter Additional Health Concerns Assessment Noted Time PHQ-9 Depression Total Score: 10 023 2:09 PM EST documented as of this encounter Care Teams Branch Manager Trainee Relationship Specialty Start Date End Date Marii Mcmillan MD [address] [place] [address] PCP - General Family Medicine 07/11/21 Evelyne Green Target TrimmerCissp 12/09/23 documented as of this encounter
--- OUTSIDE RECORDS SUMMARY | 2024-11-21 11:14 | XMS_ITS | Encounter Summary ---
Author Organization [employer] Address 75 [facility] 7t [place] [address] Care Team Providers Care Legal Service Specialist Name Role Phone Marii Mcmillan MD Primary Care Provider [phone] Reason for Visit * Reason Onset Date Comments Referral 03/12/2023 Encounter Details Date Type Department Care Team ([facility] Contact Info) Description 03/12/2023 Telephone [facility] MED & PEDS [address] [place] [address] Marii Mcmillan MD 505 [place] [address] Referral Social History Tobacco Use Types Packs/Day [...] 03/12/2023 4:18 PM EST Referral [place] [facility] [place] * Telephone Encounter - Brooke Corral - 03/12/2023 1:49 PM EST Tc [facility] [place] has not received referral. documented in this encounter Plan of Treatment Upcoming Encounters Date Type Department Care Team ([facility] st Contact Info) Description 01/30/2025 1:00 PM EST Telemedicine [facility] MED & PEDS [address] [place] [address] Leelee Castaneda RN [address] [place] [address] 03/13/2025 10:30 AM EST Clinical Support [facility] MED & PEDS [address] [place] [address] documented as of this encounter Visit Diagnoses Not on filedocumented in this encounter Additional Health Concerns Assessment Noted Time PHQ-9 Depression Total Score: 10 023 2:09 PM EST documented as of this encounter Care Teams Legal Service Specialist Relationship Specialty Start Date End Date Marii Mcmillan MD [address] [place] [address] PCP - General Family Medicine 07/11/21 Evelyne Green Branch Operations SpecialistEducation Manager 12/09/23 documented as of this encounter
--- OUTSIDE RECORDS SUMMARY | 2024-11-21 11:14 | XMS_ITS | Encounter Summary ---
Author Organization [employer] Address [address] [place] [address] 7 [place] [address] Care Team Providers Care Occupational Health And Safety Adviser Name Role Phone Marii Mcmillan MD Primary Care Provider [phone] Reason for Referral * Imaging (STAT) - Closed Specialty Diagnoses / Procedures Referred By Contac t Referred To Contact Radiology Diagnoses Mass of right inguinal region Procedures Us Pelvis complete Gildardo Huertas MD [address] [place] [address] Phone: tel: fax: [address] Phone: tel: fax: Referral ID Status Reason Start Date Expiration Date Visits Re quested Visits Authorized [id number] Closed 09/18/2022 09/18/2023 1 1 Encounter Details Date Type Department Care Team (Late st Contact Info) Description 09/18/2022 Orders Only [facility] MED & PEDS [address] [place] [address] Gildardo Huertas MD [address] [place] [address] Mass of right inguinal region (Primary Dx) [...] [facility] st Contact Info) Description 01/30/2025 1:00 PM EST Telemedicine [facility] MED & PEDS [address] [place] [address] Leelee Castaneda, RN 505 [place] [address] 03/13/2025 10:30 AM EST Clinical Support [facility] MED & PEDS [address] [place] [address] Scheduled Orders Name Type Priority Associated Diagnoses [...] PM EDT Narrative 09/25/2022 10:43 AM EDT [address] [address] Ultrasound Report Signed Patient: Manuel Grimm MR#: [id number] : 1960 Acct:[id number] Age/Sex: 62 / M ADM Date: 09/18/22 Loc: HO.US Attending Dr: Marii Mcmillan MD Ordering Physician: Marii Mcmillan MD Date of Service: 09/18/22 Procedure(s): US pelvic limited Accession Number(s): [id number] cc: Marii Mcmillan MD EXAMINATION: US RIGHT [...] in OV> 09/25/22 1039 DD/ 1503 TD/TT: Supervisor Prep: Procedure Note Donotuseinterpreter, Image - 09/25/2022 [place] [address] Ultrasound Report Signed Patient: Manuel Grimm DMR#: [id number] : 1Acct:[id number] Age/Sex: 62 / MADM Date: 09/18/22 Loc: HO.US Attending Dr: Marii Mcmillan MD Ordering Physician: Marii Mcmillan MD Date of Service: 09/18/22 Procedure(s): US pelvic limited Accession Number(s): [id number] cc: Marii Mcmillan MD EXAMINATION: US RIGHT [...] in OV> 09/25/22 1039 DD/ 1503 TD/TT: Supervisor Prep: [facility] External Provider IMG US PROCEDURES Final Result documented in this encounter Visit Diagnoses Diagnosis Mass of right inguinal region- Primary documented in this encounter Additional Health Concerns Assessment Noted Time PHQ-9 Depression Total Score: 10 023 2:09 PM EST documented as of this encounter Care Teams Occupational Health And Safety Adviser Relationship Specialty Start Date End Date Marii Mcmillan MD [address] [place] [address] PCP - General Family Medicine 07/11/21 Evelyne Green Charcoal Burner Beehive KilnHeel Pricker 12/09/23 documented as of this encounter
--- OUTSIDE RECORDS SUMMARY | 2024-11-21 11:14 | XMS_ITS | Patient Health Record ---
Author Organization [facility] Address [address] [place] [address] Care Team Providers Care Parts Delivery Driver Name Role Phone Iman CAGLE, Maryjo Primary [...] Problem Status W/U Status Risk Notes Problem [id number] Alcoholic cirrhosis of liver without ascites (K70.30) Active confirmed Plan Of Treatment No Information Insurance Providers Payer Name Payer Address Payer Phone Subscriber Number Group Number Insured Name Patient Relationship to Insured Coverage Start Date Coverage End Date [employer] [address] [address] [place], [place] [id number] LISA DWYER Self - patient is the insured Medical (General) History Medical History History ICD Code left bundle-branch block tuberculosis glaucoma anxiety/depression/mood disorder with pa ranoia cirrhosis substance abuse, and in remission asthma disc disease Surgical History Surgery Date(Month/Year) eye surgery ear surgery cholecystectomy hernia repair
--- OUTSIDE RECORDS SUMMARY | 2024-11-21 11:14 | XMS_ITS | Clinical Summary ---
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 90 capsule 4 023 Active ofloxacin (Floxin) 0.3 % otic [...] IN THE MORNING 90 tablet 4 Active triamcinolone (Kenalog) 0.5 % ointment APPLY TOPICALLY 2 TIMES DAILY TO AFFECTED AREA 15 g Active tamsulosin (Flomax) 0.4 MG 24 hr capsuleIndication s:Benign prostatic hyperplasia, unspecified whether lower urinary tract symptoms present TAKE 1 CAPSULE BY MOUTH EVERY DAY IN THE MORNING 90 capsule 1 Active hydroCHLOROthiazi de 12.5 MG tabletIndications :Hypertension, unspecified type TAKE 1 TABLET BY MOUTH EVERY DAY IN THE MORNING (12.5 MG) 90 tablet 4 Active potassium citrate CR (Urocit-K-10) 10 mEq ER tablet TAKE 1 TABLET BY MOUTH EVERY DAY 90 tablet 1 Active gabapentin (Neurontin) 100 MG capsule Take 1-2 capsules (100-200 mg) by mouth at bedtime. 90 capsule 1 Active Galzin 50 MG capsule Take 1 capsule by mouth Once per day. Active cholecalciferol (Vitamin D-3) 50 MCG (2000 UT) capsule Take 50 mcg by mouth Once per day. Active ascorbic acid (Vitamin C) 500 MG tablet Take 2 tablets by mouth Once per day. Active oxyCODONE-acetami nophen (Percocet) 5-325 MG tabletIndications :Polyarthralgia Take 1 tablet by mouth every 6 (six) hours if needed for severe pain for up to 28 days. Do not start before October 29, 2024. 112 tablet 025 2024 Active naloxone (Narcan) 4 mg/0.1 mL nasal spray Administer 1 spray (4 mg) into affected nostril(s) if needed for opioid reversal. May repeat every 2-3 minutes if needed, alternating nostrils, until medical assistance becomes available. 2 each 2 025 2025 Active oxyCODONE-acetami nophen (Percocet) 5-325 MG tabletIndications :Polyarthralgia Take 1 tablet by mouth every 6 (six) hours if needed for severe pain for up to 28 days. 112 tablet 025 2024 Discontinued(R eorder (will not trigger notification to Pharmacy)) Active Problems Problem Noted Date Diagnosed Date Preop cardiovascular exam 11/01/2024 Assessment & Plan (11/01/2024 12:14 PM EDT): Patient was seen for pre-operative evaluation. Patient reports no symptoms of CP at rest or with exertion, dyspnea at rest or with exertion, PND, LE edema, or claudication. Pt does has had he has had prior cardiac catheterizations in [facility] as well as [place] but more than 10-15 years ago. Patient was seen by cardiology recently and had been cleared to proceed with procedure but procedure had been cancelled due to shingles (May 2024). According to the RCRI, this number of risk factors stratifies the patient to 1 point, which carries a 1.1% risk of major CV complications. In this case, CV Risk is low for the intended procedure. Candidal otitis externa 10/04/2024 Healthcare maintenance 08/05/2024 Assessment & Plan (08/05/2024 7:46 PM EDT): PSA: due, ordered Colonoscopy: reports previously completed > 10 years ago and was normal. Plan to schedule with [facility] History of cardiac arrhythmia 08/05/2024 Assessment & Plan (08/05/2024 7:53 PM EDT): - Reports previous cardiac cath at [facility] and [place] > 10 years ago. No remarkable findings. - May 2024 consult note from [facility] Cards: Echo with LVEF 59% Myocardial perfusion imaging shows probably normal perfusion EKG with sinus rhythm at 75/Min; nonspecific intraventricular conduction defect/LBBB pattern - Pt asymptomatic, denies any palpitations, chest pain, SOB, or other associated symptoms Long-term current use of opiate analgesic 2024 Pruritus 11/30/2023 Assessment & Plan (11/30/2023 3:39 PM EDT): Prescribing Elimite and Kenalog for Sx. Relevant Medications Permethrin (Elimite) 5% cream Triamcinolone (Kenalog) 0.5% treatment Alcoholic pancreatitis 10/19/2023 Alcoholic cirrhosis of liver 10/19/2023 Assessment & Plan (08/05/2024 7:42 PM EDT): Following with [facility] - Dr. Pratt Per last consult May 2024: hx of Hep C cured with interferon in the past, cirrhosis. Need to update abd US. Mild thrombocytopenia. Chronic hepatitis C 10/19/2023 Portal hypertension 10/19/2023 Chronic neck pain 06/16/2023 Overview (10/21/2024): Cervicalgia; Note: Date Diagnosed: 06/16/2023 11:02 AM (M54.2) Bilateral temporomandibular joint pain Overview (10/21/2024): Arthralgia of bilateral temporomandibular joint; Note: Date Diagnosed: 06/16/2023 11:02 AM (M26.623) Right hip pain 02/26/2023 Assessment & Plan (08/05/2024 7:47 PM EDT): Following with [facility]o, plan for right TKA Before proceeding with surgery, would like to r/o obstruction in RLE. Order for US placed July 2024. Assessment & Plan (01/29/2024 1:37 AM EST): Pt is still experiencing pain. 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 Assessment & Plan (04/21/2023 1:34 PM EST): Patient with Hx of Hip Arthritis stated that medications are not improving hip pain. Therefore, will discontinue prior medications, and will be prescribing Oxycodone. Recommended to follow up with an in-person visit. Assessment & Plan (02/26/2023 3:51 PM EST): [facility] Pain will [...] will f/up. Polyarthralgia 06/04/2022 Assessment & Plan (08/05/2024 7:44 PM EDT): - Hx of HERNANDO positive, mother with Rheumatoid arthritis - Consult at [facility] in May 2022 with plan for further eval, although no f/up note available - Plan: check labs, start gabapentin 100-200mg nightly. Reviewed med safety and SE Assessment & Plan (06/04/2022 10:11 PM EDT): Patient with diffuse joint pain, non specific + HERNANDO in testing, prior dx of hep C. Will send to rheumatology. Total perforation of right tympanic membrane Overview (10/21/2024): Total perforations of tympanic membrane, right ear; Note: Date Diagnosed: 05/06/2022 10:38 AM (H72.821) Mass of right inguinal region 02/24/2022 Assessment [...] encouraged for him to f/u with psych. Postmastoidectomy complication 10/25/2015 Overview (10/21/2024): Granulation of postmastoidectomy cavity, right ear; Note: Date Diagnosed: 10/25/2015 11:16 AM (H95.121) Other disorders following mastoidectomy, right ear; Note: Date Diagnosed: 05/06/2022 10:33 AM (H95.191) Other disorders following mastoidectomy, right ear; Note: Date Diagnosed: 05/06/2022 10:33 AM (H95.191) Impacted cerumen of left ear 03/28/2014 Overview (10/21/2024): Impacted cerumen, left ear; Note: Date Diagnosed: 10/25/2015 11:10 AM (H61.22) Chronic right mastoiditis 12/20/2013 Overview (10/21/2024): Chronic mastoiditis; Location: right CMS Risk: low risk CMS Treatment: established problem (to examiner): unstable or worsening Condition: unstable Note: Date Diagnosed: 12/20/2013 3:25 PM (383.1) Encounters Date Type Department Care Team Description 11/09/2024 3:15 PM EDT Clinical Support [facility] [address] [place] [address] Leelee Castaneda RN Chronic low back pain, unspecified back pain laterality, unspecified whether sciatica present 11/09/2024 Refill [facility] [address] [place] [address] Leelee Castaneda RN 11/09/2024 Travel 11/08/2024 Travel 10/26/2024 Results Follow-Up [facility] [address] [place] [address] Nita Steen, NURSE DISCHARGE Vitamin D, 25-Hydroxy, Total, Immunoassay, Vitamin B12/Folate, Serum Panel, Iron And Total Iron Binding Capacity, CBC auto differential 10/25/2024 Refill [facility] [address] [place] [address] Leelee Castaneda RN Polyarthralgia 10/25/2024 Telephone [facility] [address], [place] [phone] Marii Mcmillan MD Med Refill 10/21/2024 10:45 AM EDT Office Visit [facility] [address] [place] [address] Marii Mcmillan MD Encounter for immunization (Primary Dx); Colon cancer screening; Preop cardiovascular exam 10/21/2024 Orders Only [facility] [address] [place] [phone] Marii Mcmillan MD 10/21/2024 Travel 10/18/2024 Telephone [facility] [address] [place] [phone] Marii Mcmillan MD CHART PREP 10/10/2024 11:00 AM EDT Clinical Support [facility] [address] [place] [phone] Nikki Valle, REGINA Encounter for immunization 10/10/2024 Travel 09/29/2024 Telephone [facility] [address] [place] [phone] Leelee Castaneda RN 09/29/2024 Travel 09/29/2024 Telephone [facility] [address] [place] [phone] Marii Mcmillan MD preop 09/28/2024 Refill [facility] [address] [place] [phone] Marii Mcmillan MD Polyarthralgia 09/06/2024 3:00 PM EDT Clinical Support [facility] [address] [place] [phone] Elena Johnson RN Encounter for immunization 09/06/2024 Travel 08/25/2024 Refill [facility] [address] [place] [phone] Leelee Castaneda RN Polyarthralgia 08/25/2024 Telephone [facility] [address] [place] [phone] Marii Mcmillan MD Med Refill 08/24/2024 Telephone [facility] [address] [place] [phone] Marii Mcmillan MD No Show 08/24/2024 Telephone [facility] [address] [facility] [place] [phone] Marii Mcmillan MD Call Back Request (/) 08/24/2024 Telephone [facility] [address] [place] [address] Marii Mcmillan MD Referral from Last 3 Months Immunizations Immunization Administration Dates Next Due Hep A, Adult 07/17/2023,06/27/2022 Hep B, adult 10/10/2024,09/06/2024,06/27/2022 Influenza, Split (incl. bin fied surface antigen) 11/18/2011 Influenza, seasonal, injecta ble, preservative free 11/30/2023 Pneumococcal Conjugate PCV 20 10/21/2024 Tdap 07/17/2023 Family History Medical History Relation Name Comments Rheum arthritis Mother Relation Name Status Comments Mother Social History Tobacco Use Types Packs/Day Years [...] Mass Index 21.1 10/21/2024 11:06 AM EDT Plan of Treatment Upcoming Encounters Date Type Department Care Team (Late st Contact Info) Description 01/30/2025 1:00 PM EST Telemedicine [facility] [address] [place] [address] Leelee Castaneda, RN [address] [place] [address] 03/13/2025 10:30 AM EST Clinical Support [facility] [address] [place] [address] Health Maintenance Due Date Last Done Comments CT Colonography 1960 Colonoscopy 1960 Colorectal Cancer Screening 1960 FIT DNA/Cologuard 1960 FIT 1960 FOBT 1960 Sigmoidoscopy 1960 Alcohol/Substance Use Screening 1972 Zoster Vaccines (1 of 2) 2010 RSV Patients and Patients Aged 60 years or older (1 - Risk 60-74 years 1-dose series) 2020 COVID-19 Vaccine (1 - 2023-2 5 season) 2024 Influenza Vaccine (#1) 2024 , 11/18/2011 Hepatitis B Vaccines (3 of 3 - Risk 3-dose series) 12/05/2024 10/10/2024, 09/06/2024, 06/27/2022 Depression Monitoring 02/05/2025 08/05/2024 , 05/23/2022 SDOH Screening 08/05/2025 08/05/2024 Tobacco Screening 10/21/2025 10/21/2024 Disability Screening 11/08/2025 11/08/2024 Lipid Panel 08/12/2029 08/12/2024, 07/26/2021 DTaP/Tdap/Td Vaccines (2 - T d or Tdap) 07/16/2033 07/17/2023 Hepatitis A Vaccines Completed 07/17/2023, 06/27/2022 HIV Screening Completed 08/12/2024, 04/18/2024, 07/26/2021 Pneumococcal Vaccine: 50+ Years Completed 10/21/2024 HIB Vaccines Aged Out No longer eligi ble based on patient's age to complete this topic HPV Vaccines Aged Out No longer eligi ble based on patient's age to complete this topic IPV Vaccines Aged Out No longer eligi ble based on patient's age to complete this topic Meningococcal B Vaccine Aged Out No l onger eligible based on patient's age to complete [...] Procedure Name Priority Date/Time Associated Diagnosis Comments POCT MITCHELL-14 URINE DRUG SCREEN Routine 11/09/2024 3:27 PM EDT Chronic low back pain, unspecified back pain laterality, unspecified whether sciatica present SLIDE REVIEW Routine 10/21/2024 11:55 AM EDT PROTHROMBIN TIME-INR Routine 10/21/2024 11:55 AM EDT Preop cardiovascular exam CBC WITH AUTO DIFFERENTIAL Routine 10/21/2024 11:55 AM EDT Preop cardiovascular exam FERRITIN Routine 10/21/2024 11:53 AM EDT Preop cardiovascular exam IRON AND TOTAL IRON BINDING CAPACITY Routine 10/21/2024 11:53 AM EDT Preop cardiovascular exam COMPREHENSIVE METABOLIC PANEL Routine 10/21/2024 11:53 AM EDT Preop cardiovascular exam CBC WITH AUTO DIFFERENTIAL Routine 10/10/2024 10:57 AM EDT Healthcare maintenance IRON AND TOTAL IRON BINDING CAPACITY Routine 10/10/2024 10:57 AM EDT Healthcare maintenance VITAMIN B12/FOLATE, SERUM PANEL Routine 10/10/2024 10:57 AM EDT Healthcare maintenance VITAMIN D,25-OH,TOTAL,IA Routine 10/10/2024 10:57 AM EDT Healthcare maintenance HIV 1/2 ANTIGEN/ANTIBODY, FOURTH GENERATION W/RFL Routine 08/12/2024 1:59 PM EDT Healthcare maintenance Encounter for routine history and physical examination of adult LIPID PANEL, STANDARD Routine 08/12/2024 1:59 PM EDT Healthcare maintenance Encounter for routine history and physical examination of adult from Last 3 Months or Most Recently Relevant to Health Maintenance Results * (ABNORMAL) POCT MITCHELL-14 Urine Drug Screen (11/09/2024 3:27 PM EDT) THC Positive(A) Negative Cocaine Screen, Urine Negative Negative Opiate Screen, Urine Negative Negative Methamphetamine Screen Urine Negative Negative Amphetamine Screen, Urine Negative Negative Benzodiazepines Screen, Urine Negative Negative Barbiturate Screen, Urine Negative Negative Methadone Screen, Urine Negative Negative Buprenophine Screen, Urine Negative Negative TCA, Urine Negative Negative MDMA Urine Negative Negative ng/mL Oxycodone Screen, Urine Positive(A) Negative Phencyclidine (PCP), Urine Negative Negative Propoxyphene, Urine Negative Negative Fentanyl, Urine Negative Negative Urine Urine specimen obtained by clean catch procedure / Unknown 11/09/2024 3:27 PM EDT Narrative Leelee Castaneda RN - 11/09/2024 3:27 PM EDT Internal Pass Control Lot# [id number] Exp: 01-13-26 Marii Mcmillan MD POINT OF CARE TEST ENTER/EDIT ORDERABLES Final Result * Slide Review (10/21/2024 11:55 AM EDT) Pathologist [facility] Slide Review VERIFIED [facility] 10/21/2024 11:5 5 AM EDT 10/21/2024 2:55 PM EDT Marii Mcmillan MD LAB BLOOD ORDERABLES Final Re sult [facility] [address] [place] [phone] * (ABNORMAL) CBC auto differential (10/21/2024 11:55 AM EDT) Only the most recent of2 resultswithin the time period is included. White Blood Count 4.3(L) 4.8 - 10.8 X10*3/uL [facility] Red Blood Count 4.69 4.60 - 5.80 X10*6/uL [facility] Hemoglobin 14.5 14.0 - 18.0 g/dl [facility] Hematocrit 41.1(L) 42.0 - 52.0 % [facility] Mean Corpuscular Volume 87.6 80.0 - 98.0 fL [facility] Mean Corpuscular Hemoglobin 30.9 27.0 - 33.0 pg [facility] Mean Corpuscular HGB Conc 35.3 31.0 - 36.0 g/dl [facility] Red Cell Distribution Width 13.1 11.0 - 16.0 % [facility] Platelet Count 117(L) 160 - 400 X10*3/uL [facility] Mean Platelet Volume 10.2 9.4 - 12.4 fL [facility] Neutrophils Percent Auto 42.0(L) 45 - 73 % [facility] Imm Gran Pct Auto 0.2 0.0 - 0.4 % [facility] Lymphocytes Percent Auto 32.4 20 - 40 % [facility] Monocytes Percent Auto 20.4(H) 2 - 11 % [facility] Eosinophils Percent Auto 4.5(H) 0 - 4 % [facility] Basophils Percent Auto 0.5 0 - 2 % [facility] NRBC Pct Auto 0.0 0.0 - 0.2 /100WBC [facility] Neutrophils Absolute Auto 1.8(L) 2.0 - 8.3 x10*3/uL [facility] Imm Gran Abs Auto 0.01 0.00 - 0.03 X10*3/uL [facility] Lymphocytes Absolute Auto 1.4 1.2 - 4.9 X10*3/uL [facility] Monocytes Absolute Auto 0.9 0.1 - 1.2 X10*3/uL [facility] Eosinophils Absolute Auto 0.2 0.0 - 0.4 X10*3/uL [facility] Basophils Absolute Auto 0.0 0.0 - 0.2 X10*3/uL [facility] NRBC Abs Auto 0.000 0.0 - 0.012 X10*3/uL [facility] Blood Venous blood specimen / Unknown 10/21/2024 11:55 AM EDT 10/21/2024 2:55 PM EDT us Marii Mcmillan MD LAB BLOOD ORDERABLES Edited R esult - Final [facility] [address] [place] [address] [phone] * Prothrombin Time-INR (10/21/2024 11:55 AM EDT) Prothrombin Time 12.0 10.9 - 12.4 SEC [facility] INTERNATIONAL NORM RATIO 1.0 0.9 - 1.1 [facility] Comment:INTERNATIONAL NORMAL IZED RATIO (INR) [...] 3.5 Blood Venous blood specimen / Unknown 10/21/2024 11:55 AM EDT 10/21/2024 2:55 PM EDT Marii Mcmillan MD LAB BLOOD ORDERABLES Final Re sult Performing Organization Address [facility]/ZIP Co de Phone Number [facility] [address] [place] [phone] * (ABNORMAL) Iron And Total Iron Binding Capacity (10/21/2024 11:53 AM EDT) Only the most recent of2 resultswithin the time period is included. [facility] Iron 126 45 - 160 mcg/dL [facility] Total Iron Binding Capacity 235 228 - 428 mcg/dL [facility] Percent Iron Saturation 54(H) 15 - 50 % [facility] Unsaturated Iron Binding 109 ug/dL [facility] Blood Venous blood specimen / Unknown 10/21/2024 11:53 AM EDT 10/21/2024 2:34 PM EDT Marii Mcmillan MD LAB BLOOD ORDERABLES Final Re sult Performing Organization Address [facility] Co de Phone Number [facility] [address] [place] [phone] * (ABNORMAL) Ferritin (10/21/2024 11:53 AM EDT) Ferritin 433(H) 20 - 250 ng/mL [facility] Blood Venous blood specimen / Unknown 10/21/2024 11:53 AM EDT 10/21/2024 2:34 PM EDT us Marii Mcmillan MD LAB BLOOD ORDERABLES Final Re sult [facility] [address] [place] [phone] [phone] * (ABNORMAL) Comprehensive Metabolic Panel (10/21/2024 11:53 AM EDT) Sodium 138 135 - 145 mmol/L [facility] Potassium 3.9 3.3 - 5.1 mmol/L [facility] Chloride 105 96 - 108 mmol/L [facility] Carbon Dioxide 25 22 - 29 mmol/L [facility] Anion Gap 12 12 - 20 [facility] Urea Nitrogen (BUN) 15 9 - 16 mg/dL [facility] Creatinine, Serum 0.84 0.5 - 1.4 mg/dL [facility] Estimated Glomerular Filt Rate >60 [facility] Comment:Chronic Kidney Disea se: Estimated GFR < 60 mL/min/1.90d5[place] Kidney Disease: Estimated GFR < 15 mL/min/1.73m2 Glucose 88 60 - 115 mg/dL [facility] Calcium 9.1 8.4 - 10.2 mg/dL [facility] Bilirubin, Total 1.2(H) 0.0 - 1.0 mg/dL [facility] Aspartate Amino Transferase 42(H) 5 - 37 U/L [facility] Alanine Aminotransferase 39 0 - 40 U/L [facility] Total Protein 7.3 6.5 - 8.0 g/dL [facility] Albumin Level 4.5 3.5 - 5.0 g/dL [facility] Alkaline Phosphatase 63 39 - 117 U/L [facility] Blood Venous blood specimen / Unknown 10/21/2024 11:53 AM EDT 10/21/2024 2:34 PM EDT us Marii Mcmillan MD LAB BLOOD ORDERABLES Final Re sult Performing Organization Address [facility]/ZIP Co de Phone Number [facility] [address] [place] [address] [phone] * Vitamin D, 25-Hydroxy, Total, Immunoassay (10/10/2024 10:57 AM EDT) Vitamin D 25-OH Total 44.9 >30 ng/mL [facility] Comment: Health Based Reference Values*< 20 ng/mL [id number] ng/mL Insufficient> 30 ng/mL Sufficient*Mavis CANTRELL. N Engl J Med. 2007;357:266-280There is no well-established upper level of normal vitamin Dlevels. Some laboratories use 50 ng/mL as an upper limit ofnormal. However, toxicity is patient-dependent and may occurat any level. Careful correlation with the patient'spresentation is necessary and, if there is concern forvitamin D toxicity, treatment should be consideredirrespective of the serum level.Care must be taken in interpreting Vitamin D [...] confirmed with another method such as LC-MS/MS. Blood Venous blood specimen / Unknown 10/10/2024 10:57 AM EDT 10/10/2024 2:45 PM EDT us Nita RAO LAB BLOOD ORDERABLES Final Res ult Performing Organization Address [facility]/ZIP Co de Phone Number [facility] [address] [place] [address] [phone] * Vitamin B12/Folate, Serum Panel (10/10/2024 10:57 AM EDT) Vitamin B12 581 200 - 900 pg/mL [facility] Comment:NORMAL 200-900 PG/ML INDETERMINATE 160-199 PG/ML DEFICIENT < 160 PG/ML Folate 10.6 > or = 4.0 ng/mL [facility] Comment:Reference Values:> o r = 4.0 ng/mL< 4.0 ng/mL suggests folate deficiency Methotrexate, aminopterin and folinic acid(leucovorin) are chemotherapeutic agents whose molecularstructures are similar to folate; therefore, the Architectfolate assay cannot be used for patients using these drugs. Blood Venous blood specimen / Unknown 10/10/2024 10:57 AM EDT 10/10/2024 2:45 PM EDT Nita Steen [facility] LAB BLOOD ORDERABLES Final Res ult [facility] [address] [place] [phone] * HIV-1/2 Antigen and Antibodies, Fourth Generation, with Reflexes (08/12/2024 1:59 PM EDT) HIV AB/AG Nonreactive Nonreactive [facility] Comment:HIV-1 p24 Ag and/or HIV-1/HIV-2 Ab not detected.A test result that is nonreactive does not exclude thepossibility of exposure to or infection with HIV-1 and/orHIV-2. Nonreactive results in this assay for individualswith prior exposure to HIV-1 and/or HIV-2 may be due toantigen and antibody levels that are below the limit ofdetection of this assay.The Diabeto HIV Ag/Ab Combo assay result andsupplemental assay results should be interpreted inconjunction with the patient's clinical presentation,history and other laboratory results. If the results areinconsistent with clinical evidence, additional testing issuggested to confirm the result. Blood Venous blood specimen / Unknown 08/12/2024 1:59 PM EDT 08/12/2024 1:59 PM EDT us Nita Steen NURSE DISCHARGE LAB BLOOD ORDERABLES Final Res ult Performing Organization Address [facility]/ZIP Co de Phone Number [facility] [address] [place] [phone] [phone] * (ABNORMAL) Lipid Panel, Standard (08/12/2024 1:59 PM EDT) Triglycerides 61 <150 mg/dL [facility] Comment:Desirable Triglyceri de: less than 150 mg/dLBorderline High Triglyceride 150-199 mg/dLHigh Triglyceride: 200-499 mg/dLVery High Triglyceride: greater than or equal to 5OO mg/dL Cholesterol 107 <200 mg/dL [facility] Comment:Desirable Cholestero l: less than 200 mg/dLBorderline High Cholesterol: 200-239 mg/dLHigh Cholesterol: greater than 239 mg/dL LDL Cholesterol Calculated 58 <100 mg/dL [facility] Comment:Desirable LDL: less than 100 mg/dLNear Optimal/Above Optimal LDL: 110- 129 mg/dLBorderline High LDL: 130-159 mg/dLHigh LDL: 160-189 mg/dLVery High LDL: greater than or equal to 190 mg/dL HDL Cholesterol 37(L) >40 mg/dL [facility] Comment:Desirable HDL: great er than 40 mg/dL Note: This HDL assay may give artificially low results in patients with liver disease. Blood Venous blood specimen / Unknown 08/12/2024 1:59 PM EDT 08/12/2024 1:59 PM EDT Nita Steen NURSE DISCHARGE LAB BLOOD ORDERABLES Final Res ult Performing Organization Address 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
== END 2024-10-19 00:01 | disposition home or self-care (01) ==
LOC: HO.PAT
PROVIDERS: Physician Assistant; PCP Family Medicine; Visit Provider Orthopaedic Surgery
DX: Z01.810 Encounter for preprocedural cardiovascular examination (principal); M16.11 Unilateral primary osteoarthritis, right hip; Z13.89 Encounter for screening for other disorder
CPT/HCPCS: 87640; 87641; 93005

== ENCOUNTER → 2024-10-19 14:01 | Outpatient (BNV) | payer MEDICAID, SELFPAY | PROVIDERS: Admitting Provider Orthopaedic Surgery; PCP Family Medicine; Visit Provider Internal Medicine | DX: I44.7 Left bundle-branch block, unspecified (principal); R00.1 Bradycardia, unspecified | CPT/HCPCS: 93010 ==

== ENCOUNTER 2024-10-21 11:55 | Outpatient (REF) | payer MEDICAID, SELFPAY ==
--- OUTSIDE RECORDS SUMMARY | 2024-10-21 10:45 | XMS_ITS | Encounter Summary ---
Author Organization [employer] Address [address] [place] [address] [address] [place] [address] Care Team Providers Care Quality Systems Technician Name Role Phone Marii Mcmillan MD Primary Care Provider Reason for Referral * Consultation (Routine) - Pending Review Specialty Diagnoses / Procedures Referred By Justino palma Referred To Contact Gastroenterology Diagnoses Colon cancer screening Marii Mcmillan MD [address] [place] [address] Phone: tel: fax: Referral ID Status Reason Start Date Expiration Date Visits Requested Visits Authorized [id number] Pending Review Specialty Services Required 10/21/2024 10/21/2025 1 1 Encounter Details Date Type Department Care Team (Latest Contact Info) Description 10/21/2024 10:45 AM EDT Office Visit [facility] [address] [place] [address] Marii Mcmillan MD [address] [place] [address] Encounter for immunization (Primary Dx); Colon cancer screening; Preop cardiovascular exam Social History Tobacco Use Types Packs/Day Years Used Date Smoking Tobacco: Never Passive Smoke Exposure: Never Smokeless Tobacco: Never Alcohol Use Standard Drinks/Week Comments Never 0 (1 standard drink = 0.6 oz pur e alcohol) Depression Answer Date Recorded Patient Health Questionnaire-9 Score 10 05/23/2022 Housing Stability Answer Date Recorded What is your housing situation today? I am not s ure 08/05/[address] you li ve. Do you have problems with any of the following? I am not sure 08/05/2024 Food Insecurity Answer Date Recorded Within the past 12 months, y ou worried that your food would run out before you got money to buy more: Sometimes True 2024 Within the past 12 months,th e food you bought just didn't last and you didn't have enough money to get more: Sometimes True 08/05/2024 Transportation Answer Date Recorded In the past 12 months, has l ack of transportation kept you from medical appts, meetings, work or from getting things needed for daily living? No 08/05/2024 Utilities Answer Date Recorded In the past 12 months, has t he electric, gas, oil or water company threatened to shut off services in your home? Yes 08/05/2024 Depression Answer Date Recorded Patient Health Questionnaire-2 Score 2 08/05/2024 Internet Access Answer Date Recorded Internet Access Q1 Yes 08/05/2024 Internet Access Q2 Not on file 08/05/2024 Sex and Gender Information Value Date Recorded Sex Assigned at Male 01/13/2022 10:18 AM EDT Legal Sex Male 10:18 AM EDT Gender Identity Male 01/13/2022 10:18 AM EDT Sexual Orientation Straight 01/13/2022 10 :18 AM EDT documented as of this encounter Last Filed Vital Signs Vital Sign Reading Time Taken Comments Blood Pressure 114/78 10/21/2024 11:06 AM EDT Pulse 74 10/21/2024 11:06 AM EDT Temperature 36.2 C (97.2 F) 10/21/2024 11:06 AM EDT Respiratory Rate 20 10/21/2024 11:0 6 AM EDT Oxygen Saturation 97% 10/21/2024 11: 06 AM EDT Inhaled Oxygen Concentration - - Weight 57.5 kg (126 lb 12.8 oz) 025 11:06 AM EDT Height 165.1 cm (5' 5 ) 10/21/2024 11:0 6 AM EDT Body Mass Index 21.1 10/21/2024 11:06 AM EDT documented in this encounter Plan of Treatment Upcoming Encounters Date Type Department Care Team (Late st Contact Info) Description 11/09/2024 3:15 PM EDT Clinical Support [facility] [address] [place] [address] Leelee Castaneda, RN [address] [place], [place] 03/13/2025 10:30 AM EST Clinical Support [facility] [address] [place] [address] Scheduled Orders Name Type Priority Associated Diagnoses Orde r Schedule CBC auto differential Lab Routine Preop cardiovascular exam Expected: 10/21/2024 (Approximate), Expires: 10/21/2025 Comprehensive Metabolic Panel Lab Routine Preop cardiovascular exam Expected: 10/21/2024 (Approximate), Expires: 10/21/2025 Prothrombin Time-INR Lab Routine Preop cardiovascular exam Expected: 10/21/2024, Expires: 10/21/2025 Iron And Total Iron Binding Capacity Lab Routine Preop cardiovascular exam Expected: 10/21/2024, Expires: 10/21/2025 Ferritin Lab Routine Preop cardiovascular exam Expected: 10/21/2024 (Approximate), Expires: 10/21/2025 Scheduled Referrals Name Type Priority Associated Diagnoses Order Schedule Referral to Gastroenterology Outpatient Referral Routine Colon cancer screening Expected: 10/21/2024 (Approximate), Expires: 10/21/2025 documented as of this encounter Visit Diagnoses Diagnosis Encounter for immunization- Primary Colon cancer screening Special screening for malignant neoplasms, colon Preop cardiovascular exam Pre-operative cardiovascular examination documented in this encounter Additional Health Concerns Assessment Noted Time PHQ-9 Depression Total Score: 10 023 2:09 PM EST documented as of this encounter Care Teams Quality Systems Technician Relationship Specialty Start Date End Date Marii Mcmillan MD [address] [place] [address] PCP - General Family Medicine 07/11/21 Evelyne Green [employer] InspectorCertified Residential Medication Aide 12/09/23 documented as of this encounter
--- OUTSIDE RECORDS SUMMARY | 2024-10-21 11:57 | XMS_ITS | Patient Health Record ---
Author Organization [facility] Address [address] [place] [address] Care Team Providers Care Cytogenetic Technician Name Role Phone Iman CAGLE, Maryjo Primary Care Provider Angel Mathew Jr Unavailable [phone] Allergies Allergen (clinical drug ingredient) Drug/Non Drug [...] Problem Status W/U Status Risk Notes Problem [id number] Alcoholic cirrhosis of liver without ascites (K70.30) Active confirmed Plan Of Treatment No Information Insurance Providers Payer Name Payer Address Payer Phone Subscriber Number Group Number Insured Name Patient Relationship to Insured Coverage Start Date Coverage End Date [facility] [address] [address] [place], [place] [id number] LISA DWYER Self - patient is the insured Medical (General) History Medical History History ICD Code left bundle-branch block tuberculosis glaucoma anxiety/depression/mood disorder with pa ranoia cirrhosis substance abuse, and in remission asthma disc disease Surgical History Surgery Date(Month/Year) eye surgery ear surgery cholecystectomy hernia repair
[2024-10-21 15:10] LABS: Hematocrit 41.1 % (42.0-52.0); Hemoglobin 14.5 g/dl (14.0-18.0); Imm Gran Abs Auto 0.01 X10*3/uL (0.00-0.03); Imm Gran Pct Auto 0.2 % (0.0-0.4); Lymphocytes Absolute Auto 1.4 X10*3/uL (1.2-4.9); MANUAL DIFF FLAG SCAN; Mean Corpuscular HGB Conc 35.3 g/dl (31.0-36.0); Mean Corpuscular Hemoglobin 30.9 pg (27.0-33.0); Mean Corpuscular Volume 87.6 fL (80.0-98.0); NRBC Abs Auto 0.000 X10*3/uL (0.0-0.012); NRBC Pct Auto 0.0 /100WBC (0.0-0.2); Platelet Count 117 X10*3/uL (160-400); Red Blood Count 4.69 X10*6/uL (4.60-5.80); SCAN SMEAR FLAG 1; White Blood Count 4.3 X10*3/uL (4.8-10.8)
[2024-10-21 15:11] LABS: INTERNATIONAL NORM RATIO 1.0 (0.9-1.1); Prothrombin Time 12.0 SEC (10.9-12.4)
[2024-10-21 15:55] LABS: Alanine Aminotransferase 39 U/L (0-40); Albumin Level 4.5 g/dL (3.5-5.0); Alkaline Phosphatase 63 U/L (39-117); Anion Gap 12 (12-20); Aspartate Amino Transferase 42 U/L (5-37); Blood Urea Nitrogen 15 mg/dL (9-16); Calcium 9.1 mg/dL (8.4-10.2); Carbon Dioxide 25 mmol/L (22-29); Chloride 105 mmol/L (96-108); Estimated Glomerular Filt Rate > 60; Iron 126 mcg/dL (45-160); Percent Iron Saturation 54 % (15-50); Potassium 3.9 mmol/L (3.3-5.1); Sodium 138 mmol/L (135-145); Total Iron Binding Capacity 235 mcg/dL (228-428); Total Protein 7.3 g/dL (6.5-8.0); Unsaturated Iron Binding 109 ug/dL
[2024-10-21 16:00] LABS: Ferritin 433 ng/mL (20-250)
== END 2024-10-21 11:56 | disposition home or self-care (01) ==
LOC: HO.CHCLDS 11:55
PROVIDERS: Visit Provider Family Medicine
DX: Z01.810 Encounter for preprocedural cardiovascular examination (principal)
CPT/HCPCS: 36415; 80053; 82728; 83540; 85025; 85610

== ENCOUNTER 2024-10-31 11:28 | Outpatient (REF) | payer MEDICAID, SELFPAY ==
--- NOTE | ~2024-10-31 | XR_ITS ---
EXAMINATION: XR PELVIS CLINICAL INFORMATION: M25.559 - Pain in unspecified hip COMPARISON: Correlated to CT of the pelvis dated November 2022. TECHNIQUE: AP view of the pelvis. FINDINGS: Bony pelvis is intact. Mild degenerative changes in the symphysis pubis. Sclerosis and endplate irregularities at the L5-S1 no fully included. Mild sclerosis in the surface of the right acetabulum. XR/XR pelvis 1-2V IMPRESSION: No acute fracture. Spondylosis, L5-S1. Mild osteoarthritis/osteoarthrosis, right hip. Electronically signed by: Jose Alvarado MD 10/31/2024 02:15 PM EDT
--- OUTSIDE RECORDS SUMMARY | 2024-10-31 12:49 | XMS_ITS | Patient Health Record ---
Author Organization [facility] Address [address] [place] [address] Care Team Providers Care Janitorial Maintenance Worker Name Role Phone Iman CAGLE, Maryjo Primary [...] Problem Status W/U Status Risk Notes Problem [id number] Alcoholic cirrhosis of liver without ascites (K70.30) Active confirmed Plan Of Treatment No Information Insurance Providers Payer Name Payer Address Payer Phone Subscriber Number Group Number Insured Name Patient Relationship to Insured Coverage Start Date Coverage End Date [facility] [address] [address] [place], [place] [id number] LISA DWYER Self - patient is the insured Medical (General) History Medical History History ICD Code left bundle-branch block tuberculosis glaucoma anxiety/depression/mood disorder with pa ranoia cirrhosis substance abuse, and in remission asthma disc disease Surgical History Surgery Date(Month/Year) eye surgery ear surgery cholecystectomy hernia repair
--- OUTSIDE RECORDS SUMMARY | 2024-10-31 12:49 | XMS_ITS | Encounter Summary ---
Author Organization [employer] Address [address] [facility] 7t [place] [address] Care Team Providers Care Manager Lvn Name Role Phone Marii Mcmillan MD Primary Care Provider [phone] Reason for Visit * Reason Onset Date Comments Referral 05/20/2022 Encounter Details Date Type Department Care Team ([facility] Contact Info) Description 05/20/2022 Telephone [facility] CHC MED & PEDS [address] [place] [address] Marii Mcmillan MD 505 [place] [address] Referral Social History Tobacco Use Types Packs/Day [...] people? Somewhat difficult 05/23/2022 2:09 PM Marii Marmloejo MD * Over the past 2 weeks, [...] made on 02/04/2022. Please contact pt at [phone] documented in this encounter Plan of Treatment Upcoming Encounters Date Type Department Care Team ([facility] st Contact Info) Description 11/09/2024 3:15 PM EDT Clinical Support [facility] MED & PEDS [address] [place] [address] Leelee Castaneda, RN 505 [place] [address] 03/13/2025 10:30 AM EST Clinical Support [facility] MED & PEDS [address] [place] [address] documented as of this encounter Visit Diagnoses Not on filedocumented in this encounter Care Teams Manager Lvn Relationship Specialty Start Date End Date Marii Mcmillan MD [address] [place] [address] PCP - General Family Medicine 07/11/21 Evelyne Green Performance ArchitectForest Fire Fighters Dispatcher 12/09/23 documented as of this encounter
== END 2024-10-31 11:29 | disposition home or self-care (01) ==
LOC: HO.HOSX 11:28
PROVIDERS: Visit Provider Orthopaedic Surgery
DX: M25.551 Pain in right hip (principal); R10.31 Right lower quadrant pain
CPT/HCPCS: 72170; 99212

== ENCOUNTER 2024-10-31 14:03 | Outpatient (AMB) | payer MEDICAID, SELFPAY ==
--- NOTE | 2024-10-31 14:07 | A.OFFVIS_ITS ---
Vital Signs 10/31/24 14:11 Height 5 ft 5 in Weight 134 lb BMI 22.3 Intake Visit Reasons: R KAL w/NE 11/16:re-connect after srg prev. cx Intake Note: Manuel is a 64 year old male who presents today for a follow up of his Right Hip. He was previously booked for a Right KAL in May but surgery was cancelled due to Shingles outbreak. He is booked for a Right KAL on 11/16/24 Allergies aspirin (ASA) Allergy (Severe, Verified 10/19/24 13:15) told to not take due to beeding NSAIDS (Non-Steroidal Anti-Inflamma Allergy (Severe, Verified 10/17/24 13:20) advised not to take due to bleeding Penicillins (PENICILLINS) Allergy (Severe, Verified 10/17/24 13:20) Rash, hives codeine Allergy (Intermediate, Unverified 10/17/24 13:21) Rash naproxen (NAPROXEN) Allergy (Intermediate, Verified 10/19/24 13:03) Abdominal Pain tuberculin, purified protein deriva (TB TEST) Allergy (Intermediate, Verified 10/19/24 13:03) hx TB as a child acetaminophen (From TYLENOL) Adverse Reaction (Intermediate, Verified 10/19/24 13:15) cannot take due to cirrhosis dx mesalamine (From ASACOL) Adverse Reaction (Intermediate, Verified 10/19/24 13:03) worsening abdominal pain pseudoephedrine (From SUDAFED) Adverse Reaction (Unknown, Verified 10/19/24 13:15) advised not to take-glaucoma dx HPI HPI R KAL w/NE 11/16:re-connect after srg prev. cx: Details: Manuel is a 64 year old male who presents today for a follow up of his Right Hip. He was previously booked for a Right KAL in May but surgery was cancelled due to Shingles outbreak. He is booked for a Right KAL on 11/16/24. He states he is walking pretty well. He does have groin pain. He has difficulty squatting but he is pretty active and has been doing a lot of walking. Some days are better than others. [facility] Medical History (Updated 10/19/24 @ 13:10 by Tayla Dickey RN) Cataracts, bilateral Wears dentures Legally blind in left eye, as defined in [place] Deafness in right ear Arthritis Back pain Hx of hepatitis C Hx of tuberculosis PTSD (post-traumatic stress disorder) COPD (chronic obstructive pulmonary disease) Asthma Left bundle branch block (LBBB) Thrombocytopenia Afib Glaucoma Hypertension Anxiety Depression Cirrhosis Surgical History (Updated 10/19/24 @ 13:13 by Tayla Dickey RN) H/O colonoscopy Hx of hernia repair History of tooth extraction (~2002) History of cardiac catheterization (~2009) History of ear surgery (~1990) History of cholecystectomy (~2009) H/O abdominal surgery S/P LASIK surgery of both eyes Family History Mother Breast cancer Rheumatoid arthritis Social History Household Members: Friend(s) Household Members Other:: niece, adult Housing: House Are you a primary hemodialysis patient care specialist to a significant other at home: No Do you presently have visiting nurse or other home services: No 75 years or older and lives alone: No Patient Tobacco Use Status: Former Tobacco user Tobacco use type: Cigarette Years Smoked: quit age 57 Second Hand Smoke Exposure: Yes Substance Use Type: Marijuana service: No Current occupational status: disabled Physical Exam Vital Signs: BMI result Body Mass Index 22.3 Extrem Other: On exam he has mildly positive impingement test he also has tenderness to palpation in the groin and up into the inguinal region just distal to the inguinal ligament. This is slightly unusual. Assessment & Plan Assessment & Plan (1) Right groin pain: Code(s): R10.31 - Right lower quadrant pain Category: Medical Plan: Manuel was tentatively scheduled for hip replacement but on exam today his symptoms are atypical. He does have mild pain with impingement testing but also has pain in the inguinal region which is atypical for arthritis. I recommend he see a general surgeon to rule out hernia. His imaging does demonstrate arthritis but only on MRI is it significant and I think it best to make sure there is not something we are missing. I discussed this with him and he agrees. Orders: Orders XR pelvis 1-2V Today M25.559 - Pain in unspecified hip Coding Level of Care Code Est Pt Level 3 (75689) Diagnoses Right groin pain R10.31
[2024-10-31 14:11] VITALS: BMI 22.3
== END 2024-10-31 15:23 | disposition home or self-care (01) ==
LOC: HO.HOS 14:03
PROVIDERS: PCP Family Medicine; Visit Provider Orthopaedic Surgery
DX: R10.31 Right lower quadrant pain (principal)
CPT/HCPCS: 99213

== ENCOUNTER → 2024-10-31 14:06 | Outpatient (BNV) | payer MEDICAID, SELFPAY | PROVIDERS: Visit Provider Radiology Diagnostic Radiology | DX: M16.11 Unilateral primary osteoarthritis, right hip (principal) | CPT/HCPCS: 72170 ==

== ENCOUNTER 2025-01-09 12:25 | Outpatient (AMB) | payer MEDICAID, SELFPAY ==
--- NOTE | 2025-01-09 12:39 | MHC.OFFVIS ---
Vital Signs 01/09/25 12:50 Height 5 ft 5 in Weight 125 lb BMI 20.8 BP 111/57 L Blood Pressure Location Rt radial Position Sitting Pulse 71 Intake Visit Reasons: rule out RIH per ortho Intake Note: Patient is refer by Dr. Hendrix/ orthopedics to rule out any possible RIH. Patient c/o: right groin pain on and off for 7yrs. Waiting on hip replacement surgery. 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 Accompanied by: niece Tarah Allergies aspirin (ASA) Allergy (Severe, Verified 01/09/25 12:46) told to not take due to beeding NSAIDS (Non-Steroidal Anti-Inflamma Allergy (Severe, Verified 01/09/25 12:46) advised not to take due to bleeding Penicillins (PENICILLINS) Allergy (Severe, Verified 01/09/25 12:46) Rash, hives codeine Allergy (Intermediate, Unverified 01/09/25 12:46) Rash naproxen (NAPROXEN) Allergy (Intermediate, Verified 01/09/25 12:46) Abdominal Pain tuberculin, purified protein deriva (TB TEST) Allergy (Intermediate, Verified 01/09/25 12:46) hx TB as a child acetaminophen (From TYLENOL) Adverse Reaction (Intermediate, Verified 01/09/25 12:46) cannot take due to cirrhosis dx mesalamine (From ASACOL) Adverse Reaction (Intermediate, Verified 01/09/25 12:46) worsening abdominal pain pseudoephedrine (From SUDAFED) Adverse Reaction (Unknown, Verified 01/09/25 12:46) advised not to take-glaucoma dx HPI HPI rule out RIH per ortho: Details: Patient seen in the office after referral from Dr. Hendrix for atypical right groin pain, possible right inguinal hernia. Hoping to rule out right inguinal hernia to proceed with a right hip surgery. Patient states that he has been struggling with this pain in the right groin for about 7 years. He was previously seen for possible right inguinal hernia in [address] Cary in which he was unable to appreciate a hernia on exam, cat scan was ordered which was unremarkable for right inguinal hernia. Patient states he was supposed to have right hip surgery with Dr. Hendrix earlier this year but was canceled due to shingles outbreak. Additionally he was rescheduled for 9 3 but due to this atypical presentation Dr. Hendrix wanted to rule out a right inguinal hernia prior to surgery. He reports he feels his pain when lifting heavy things or straining too hard. The pain extends down into the medial aspect of his right thigh. He denies ever seeing a bulge after heavy lifting with prolonged standing. He reports no difficulty with bowel movements previously had to strain a lot when he was incarcerated. He denies any scrotal swelling. He does have some difficulty with urination but this is due to an enlarged prostate. He does state that he has a history of performing mixed martial arts, and suffered a right groin injury that did not heal properly then, he is unsure if this is related or not [facility] Medical History Cataracts, bilateral Wears dentures Legally blind in left eye, as defined in [place] Deafness in right ear Arthritis Back pain Hx of hepatitis C Hx of tuberculosis PTSD (post-traumatic stress disorder) COPD (chronic obstructive pulmonary disease) Asthma Left bundle branch block (LBBB) Thrombocytopenia Afib Glaucoma Hypertension Anxiety Depression Cirrhosis Surgical History H/O colonoscopy Hx of hernia repair History of tooth extraction (~2002) History of cardiac catheterization (~2009) History of ear surgery (~1990) History of cholecystectomy (~2009) H/O abdominal surgery S/P LASIK surgery of both eyes Family History Mother Breast cancer Rheumatoid arthritis Social History Household Members: Friend(s) Household Members Other:: niece, adult Housing: House Are you a primary home health care worker to a significant other at home: No Do you presently have visiting nurse or other home services: No 75 years or older and lives alone: No Patient Tobacco Use Status: Former Tobacco user Tobacco use type: Cigarette Years Smoked: quit age 57 Second Hand Smoke Exposure: Yes Substance Use Type: Marijuana service: No Current occupational status: disabled Review of Systems Const All systems reviewed & are unremarkable except as noted in HPI and below Physical Exam Vital Signs: Last Vital Signs Pulse 71 01/09/25 12:50 BP 111/57 L 01/09/25 12:50 BMI result Body Mass Index 20.8 Const General: comfortable and no acute distress Orientation/consciousness: patient oriented x3 Resp Effort & Inspection: normal respiratory effort and able to speak in complete sentences GI Inspection: Yes normal to inspection Abdomen image:  1. Exquisitely tender to even light palpation. No visible hernia, no hernia produced with Valsalva. Neuro General: patient oriented x3 Assessment & Plan Assessment & Plan (1) Right groin pain: Code(s): R10.31 - Right lower quadrant pain Category: Medical Plan 64-year-old male referred to General surgery for evaluation of a possible right inguinal hernia by Dr. Hendrix would like us to rule out right inguinal hernia prior to right hip surgery. Patient has been dealing with this pain for many years, feels increased pain in the right groin when lifting, straining. He was previously evaluated by Dr. Cary in 2022, he was unable to appreciate a hernia on exam, CT scan was ordered which did not show any evidence of right inguinal hernia. Patient reports not much has changed since then, although he states that now the pain extends down the inside of his right thigh. On exam he was exquisitely tender in the right groin, however I was unable to appreciate any hernia on Valsalva. The abdomen was normal to visual inspection. He is not having any obstructive symptoms. It is possible that this may be pain related to the degenerative changes in his hip or the previous injury that he sustained while performing martial arts. I will order a CAT scan to see if a hernia is present on imaging, if this is we may proceed with right inguinal hernia repair. He will follow up after we have been given results to discuss these results and our future plans. Orders: Orders CT abdomen pelvis wo IV con Today R10.31 - Right lower quadrant pain Coding Level of Care Code Est Pt Level 4 (34692) Diagnoses Right groin pain R10.31
[2025-01-09 12:50] VITALS: BP 111/57; PULSE 71; BMI 20.8
--- OUTSIDE RECORDS SUMMARY | 2025-01-09 15:45 | XMS_ITS | Encounter Summary ---
Author Organization [employer] Address [address] [place] [address] [address] [place] [address] Care Team Providers Care Correspondence Specialist Name Role Phone Marii Mcmillan MD Primary Care Provider [phone] Reason for Visit * Reason Comments Med Change Request Encounter Details Date Type Department Care Team ([facility] Contact Info) Description 05/27/2022 Refill [facility] [address] [place] [address] Marii Mcmillan MD [address] [place] [address] Takes dietary supplements Social History Tobacco Use [...] Encounters Date Type Department Care Team ([facility] st Contact Info) Description 01/30/2025 1:00 PM EST Telemedicine [facility] MED [facility] PEDS [address] [place] [address] Leelee Castaneda, RN [address] [place] [address] 03/13/2025 10:30 AM EST Clinical Support [facility] [address] [place] [address] documented as of this encounter Visit Diagnoses Diagnosis Takes dietary supplements documented in this encounter Additional Health Concerns Assessment Noted Time PHQ-9 Depression Total Score: 10 023 2:09 PM EST documented as of this encounter Care Teams Correspondence Specialist Relationship Specialty Start Date End Date Marii Mcmillan MD [address] [place] [id number] PCP - General Family Medicine 07/11/21 Evelyne Green Fire Prevention CaptainPromos Executive Producer 12/09/23 documented as of this encounter
--- OUTSIDE RECORDS SUMMARY | 2025-01-09 15:45 | XMS_ITS | Encounter Summary ---
Author Organization [employer] Address [address] [place] [address] 7 [place] [address] Care Team Providers Care Guest Specialist Name Role Phone Marii Mcmillan MD Primary Care Provider [phone] Reason for Visit * Reason Onset Date Comments Referral 05/20/2022 Encounter Details Date Type Department Care Team ([facility] Contact Info) Description 05/20/2022 Telephone [facility] MED [facility]EDS [address] [place] [address] Marii Mcmillan MD [address] [place] [address] Referral Social History Tobacco Use Types Packs/Day [...] made on 02/04/2022. Please contact pt at [phone] documented in this encounter Plan of Treatment Upcoming Encounters Date Type Department Care Team (Late st Contact Info) Description 01/30/2025 1:00 PM EST Telemedicine [facility] MED & PEDS [address] [place] [address] Leelee Castaneda, REGINA [address] [place] [address] 03/13/2025 10:30 AM EST Clinical Support [facility] MED & PEDS [address] [place] [address] documented as of this encounter Visit Diagnoses Not on filedocumented in this encounter Care Teams Guest Specialist Relationship Specialty Start Date End Date Marii Mcmillan MD [address] [place] [address] PCP - General Family Medicine 07/11/21 Evelyne Green Sequins SpoolerInjection Molding Engineer 12/09/23 documented as of this encounter
--- OUTSIDE RECORDS SUMMARY | 2025-01-09 15:45 | XMS_ITS | Encounter Summary ---
Author Organization [employer] Address [address] [place] [address] [address] [place] [address] Care Team Providers Care Reservoir Engineering Advisor Name Role Phone Marii Mcmillan MD Primary Care Provider [phone] Reason for Visit * Reason Comments Med Change Request Encounter Details Date Type Department Care Team ([facility] Contact Info) Description 05/29/2022 Refill [facility] MED & PEDS [address] [place] [address] Marii Mcmillan MD [address] [place] [address] Takes dietary supplements Social History Tobacco Use [...] Upcoming Encounters Date Type Department Care Team ([facility] st Contact Info) Description 01/30/2025 1:00 PM EST Telemedicine [facility] MED & PEDS [address] [place] [address] Leelee Castaneda, RN [address] [place] [address] 03/13/2025 10:30 AM EST Clinical Support [facility] MED & PEDS [address] [place] [address] documented as of this encounter Visit Diagnoses Diagnosis Takes dietary supplements documented in this encounter Additional Health Concerns Assessment Noted Time PHQ-9 Depression Total Score: 10 023 2:09 PM EST documented as of this encounter Care Teams Reservoir Engineering Advisor Relationship Specialty Start Date End Date Marii Mcmillan MD [address] [place] [id number] PCP - General Family Medicine 07/11/21 Evelyne Green Clinic ReceptionistCellophane Worker 12/09/23 documented as of this encounter
--- OUTSIDE RECORDS SUMMARY | 2025-01-09 15:45 | XMS_ITS | Clinical Summary ---
Author Organization [employer] Address [address] [place] [address] 7[address] [place] [address] Care Team Providers Care Academic Computing Director Name Role Phone Marii Mcmillan MD Primary Care Provider [phone] Allergies Active Allergy Reactions Criticality Noted Date Comments Hydrocodone Rash Low 03/26/2010 Other reaction(s): unspecified Nsaids Other Low 06/13/2015 Abd pain Non-steroidal anti-inflammatory agent (product) Penicillin G Rash Low 06/13/2015 Penicillin V Rash Low 03/26/2010 Other reaction(s): unspecified Wound Dressing Adhesive Unknown 10/21/2024 Medications * This document contains information received from the source organization and may not represent a complete record from that organization. Diclofenac Sodium 1 % gel apply 2 [...] EAR TWICE A DAY FOR 10 DAYS 02/14/2 024 Active Lotemax 0.5 % ophthalmic suspension [...] IN THE MORNING 90 tablet 4 Active tamsulosin (Flomax) 0.4 MG 24 hr [...] tablets by mouth Once per day. Active naloxone (Narcan) 4 mg/0.1 mL nasal spray Administer 1 spray (4 mg) into affected nostril(s) if needed for opioid reversal. May repeat every 2-3 minutes if needed, alternating nostrils, until medical assistance becomes available. 2 each 2 025 2025 Active triamcinolone (Kenalog) 0.5 % ointment APPLY TOPICALLY 2 TIMES DAILY TO AFFECTED AREA 15 g Active oxyCODONE (Roxicodone) 5 MG immediate release tabletIndications :Right hip pain Take 1 tablet (5 mg) by mouth every 6 (six) hours if needed for severe pain for up to 28 days. 112 tablet 025 2024 Active triamcinolone (Kenalog) 0.5 % ointment APPLY TOPICALLY 2 TIMES DAILY TO AFFECTED AREA 15 g 024 2024 Discontinued oxyCODONE (Roxicodone) 5 MG immediate release tabletIndications :Right hip pain Take 1 tablet (5 mg) by mouth every 6 (six) hours if [...] he has had prior cardiac catheterizations in [facility] as well as [place] but more than 10-15 years ago. Patient [...] and was normal. Plan to schedule with [facility] History of cardiac arrhythmia 08/05/2024 Assessment & Plan (08/05/2024 7:53 PM EDT): - Reports previous cardiac cath at [facility] and [place] > 10 years ago. No remarkable findings. - May 2024 consult note from [facility] Cards: Echo with LVEF 59% Myocardial perfusion [...] Plan (08/05/2024 7:42 PM EDT): Following with [facility] - Dr. Pratt Per last consult May 2024: hx of Hep C cured with interferon in the past, cirrhosis. Need to update abd US. Mild thrombocytopenia. Chronic hepatitis C (CMS/HCC) 10/19/2023 Portal hypertension (CMS/HCC) 10/19/2023 Chronic neck pain 06/16/2023 Overview (10/21/2024): Cervicalgia; Note: Date Diagnosed: 06/16/2023 11:02 AM (M54.2) Bilateral temporomandibular joint pain Overview (10/21/2024): Arthralgia of bilateral temporomandibular joint; Note: Date Diagnosed: 06/16/2023 11:02 AM (M26.623) Right hip pain 02/26/2023 Assessment & Plan (08/05/2024 7:47 PM EDT): Following with [facility], plan for right TKA Before proceeding with surgery, would like to r/o obstruction in RLE. Order for US placed July 2024. Assessment & Plan (01/29/2024 1:37 AM EST): Pt is still experiencing pain. Relevant orders: Referral to Orthopaedic Surgery Assessment & Plan (07/07/2023 3:56 PM EDT): floor care specialist will further monitor hip pain. Assessment & Plan (04/21/2023 1:34 PM EST): Patient with Hx of Hip Arthritis stated that medications are not improving hip pain. Therefore, will discontinue prior medications, and will be prescribing Oxycodone. Recommended to follow up with an in-person visit. Assessment & Plan (02/26/2023 3:51 PM EST): Patient that [facility] compplaints of R Hip Pain will [...] mother with Rheumatoid arthritis - Consult at [facility] in May 2022 with plan for [...] Date Diagnosed: 12/20/2013 3:25 PM (383.1) Encounters * This document contains information received from the source organization and may not represent a complete record from that organization. Date Type Department Care Team Description 12/27/2024 Refill [facility] [address] [place] [address] Marii Mcmillan MD Right hip pain 12/20/2024 Telephone [facility] [address] [place] [address] Marii Mcmillan MD Call Back Request 12/09/2024 Refill [facility] [address] [place] [address] Marii Mcmillan MD 11/28/2024 Refill [facility] MED[facility] [address] [place] [address] Marii Mcmillan MD Right hip pain (Primary Dx) 11/09/2024 3:15 PM EDT Clinical Support [facility] [address] [place] [address] Leelee Castaneda RN Chronic low back pain, unspecified back pain laterality, unspecified whether sciatica present 11/09/2024 Refill [facility] [address] [place] [address] Leelee Castaneda RN 11/09/2024 Travel 11/08/2024 Travel 10/26/2024 Results Follow-Up [facility] [address] [place] [address] Nita Steen, JALEN Vitamin D, 25-Hydroxy, Total, Immunoassay, Vitamin B12/Folate, Serum Panel, Iron And Total Iron Binding Capacity, CBC auto differential 10/25/2024 Refill [facility] [address] [place] [address] Leelee Castaneda RN Polyarthralgia 10/25/2024 Telephone [facility] MEDICINE [address] [place] [address] Marii Mcmillan MD Med Refill 10/21/2024 10:45 AM EDT Office Visit [facility] [address] [place] [address] Marii Mcmillan MD Encounter for immunization (Primary Dx); Colon cancer screening; Preop cardiovascular exam 10/21/2024 Orders Only [facility] [address] [place] [address] Marii Mcmillan MD 10/21/2024 Travel 10/18/2024 Telephone [facility] [address] [place] [address] Marii Mcmillan MD CHART PREP 10/10/2024 11:00 AM EDT Clinical Support [facility] [address] [place] [address] Nikki Valle RN Encounter for immunization 10/10/2024 Travel from Last 3 Months Immunizations Immunization Administration Dates Next Due Hep A, Adult 07/17/2023,06/27/2022 Hep B, adult 10/10/2024,09/06/2024,06/27/2022 Influenza, IIV3, injectable 12/29/2024 Influenza, Split (incl. bin fied surface antigen) 11/18/2011 Influenza, seasonal, injecta ble, preservative free 11/30/2023 Pneumococcal Conjugate PCV 20 10/21/2024 SARS-CoV-2, Unspecified 12/29/2024 Tdap 07/17/2023 Family History Medical History Relation [...] ([facility] st Contact Info) Description 01/30/2025 1:00 PM EST Telemedicine [facility] [address] [place] [address] Leelee Castaneda, REGINA [address] [place] [address] 03/13/2025 10:30 AM EST Clinical Support [facility] [address] [place] [address] Health Maintenance Due Date Last Done Comments CT Colonography 1960 Colonoscopy 1960 Colorectal Cancer Screening 1960 FIT DNA/Cologuard 1960 FIT 1960 FOBT 1960 Sigmoidoscopy 1960 Alcohol/Substance Use Screening 1972 Zoster Vaccines (1 of 2) 2010 RSV Patients and Patients Aged 60 years or older (1 - Risk 60-74 years 1-dose series) 2020 Hepatitis B Vaccines (3 of 3 - [...] 07/26/2021 Pneumococcal Vaccine: 50+ Years Completed 10/21/2024 COVID-19 Vaccine Completed 12/29/2024 Influenza Vaccine Completed 12/29/2024, 11/30/2023, 11/18/2011 HIB Vaccines Aged Out No [...] procedure / Unknown 11/09/2024 3:27 PM EDT Leelee Hartmann RN - 11/09/2024 3:27 PM EDT Internal Pass Control Lot# [id number] Exp: 01-13-26 Marii Mcmillan MD POINT OF CARE TEST ENTER/EDIT ORDERABLES Final Result * Slide Review (10/21/2024 11:55 AM EDT) Slide Review VERIFIED [facility] 10/21/2024 11:5 5 AM EDT 10/21/2024 2:55 PM EDT Marii Mcmillan MD LAB BLOOD ORDERABLES Final Re sult [facility] [address] [place] [phone] * (ABNORMAL) CBC auto differential (10/21/2024 11:55 AM EDT) Only the most recent of2 resultswithin the time period is included. White Blood Count 4.3(L) 4.8 - 10.8 X10*3/uL [facility] Red Blood Count 4.69 4.60 - 5.80 X10*6/uL [facility] Hemoglobin 14.5 14.0 - 18.0 g/dl [facility] Hematocrit 41.1(L) 42.0 - 52.0 % [facility] Mean Corpuscular Volume 87.6 80.0 - 98.0 fL [facility] Mean Corpuscular Hemoglobin 30.9 27.0 - 33.0 pg [facility] Mean Corpuscular HGB Conc 35.3 31.0 - 36.0 g/dl [facility] Red Cell Distribution Width 13.1 11.0 - 16.0 % [facility] Platelet Count 117(L) 160 - 400 X10*3/uL [facility] Mean Platelet Volume 10.2 9.4 - 12.4 fL [facility] Neutrophils Percent Auto 42.0(L) 45 - 73 % [facility] Imm Gran Pct Auto 0.2 0.0 - 0.4 % [facility] Lymphocytes Percent Auto 32.4 20 - 40 % [facility] Monocytes Percent Auto 20.4(H) 2 - 11 % [facility] Eosinophils Percent Auto 4.5(H) 0 - 4 % [facility] Basophils Percent Auto 0.5 0 - 2 % [facility] NRBC Pct Auto 0.0 0.0 - 0.2 /100WBC [facility] Neutrophils Absolute Auto 1.8(L) 2.0 - 8.3 x10*3/uL [facility] Imm Gran Abs Auto 0.01 0.00 - 0.03 X10*3/uL [facility] Lymphocytes Absolute Auto 1.4 1.2 - 4.9 X10*3/uL [facility] Monocytes Absolute Auto 0.9 0.1 - 1.2 X10*3/uL [facility] Eosinophils Absolute Auto 0.2 0.0 - 0.4 X10*3/uL [facility] Basophils Absolute Auto 0.0 0.0 - 0.2 X10*3/uL [facility] NRBC Abs Auto 0.000 0.0 - 0.012 X10*3/uL [facility] Blood Venous blood specimen / Unknown 10/21/2024 11:55 AM EDT 10/21/2024 2:55 PM EDT us Marii Mcmillan MD LAB BLOOD ORDERABLES Edited R esult - Final [facility] [address] [place] [phone] * Prothrombin Time-INR (10/21/2024 11:55 AM EDT) Prothrombin Time 12.0 10.9 - 12.4 SEC [facility] INTERNATIONAL NORM RATIO 1.0 0.9 - 1.1 [facility] Comment:INTERNATIONAL NORMAL IZED RATIO [...] ORDERABLES Final Re sult Performing Organization Address [facility] Phone Number [facility] [address] [place] [phone] * (ABNORMAL) Iron And Total Iron Binding Capacity (10/21/2024 11:53 AM EDT) Only the most recent of2 resultswithin the time period is included. Iron 126 45 - 160 mcg/dL [facility] Total Iron Binding Capacity 235 228 - 428 mcg/dL [facility] Percent Iron Saturation 54(H) 15 - 50 % [facility] Unsaturated Iron Binding 109 ug/dL [facility] Blood Venous blood specimen / Unknown 10/21/2024 11:53 AM EDT 10/21/2024 2:34 PM EDT Marii Mcmillan MD LAB BLOOD ORDERABLES Final Re sult Performing Organization Address [facility] Phone Number [facility] [address] [place] [phone] * (ABNORMAL) Ferritin (10/21/2024 11:53 AM EDT) Ferritin 433(H) 20 - 250 ng/mL [facility] Blood Venous blood specimen / Unknown 10/21/2024 11:53 AM EDT 10/21/2024 2:34 PM EDT Marii Mcmillan MD LAB BLOOD ORDERABLES Final Re sult Performing Organization Address [facility] Phone Number [facility] [address] [place] [phone] * (ABNORMAL) Comprehensive Metabolic Panel (10/21/2024 11:53 AM EDT) Sodium 138 135 - 145 mmol/L [facility] Potassium 3.9 3.3 - 5.1 mmol/L [facility] Chloride 105 96 - 108 mmol/L [facility] Carbon Dioxide 25 22 - 29 mmol/L [facility] Anion Gap 12 12 - 20 [facility] Urea Nitrogen (BUN) 15 9 - 16 mg/dL [facility] Creatinine, Serum 0.84 0.5 - 1.4 mg/dL [facility] Estimated Glomerular Filt Rate >60 [facility] Comment:Chronic Kidney Disea se: Estimated GFR < 60 mL/min/[id number] Kidney Disease: Estimated GFR < 15 mL/min/1.73m2 Glucose 88 60 - 115 mg/dL [facility] Calcium 9.1 8.4 - 10.2 mg/dL [facility] Bilirubin, Total 1.2(H) 0.0 - 1.0 mg/dL [facility] Aspartate Amino Transferase 42(H) 5 - 37 U/L [facility] Alanine Aminotransferase 39 0 - 40 U/L [facility] Total Protein 7.3 6.5 - 8.0 g/dL [facility] Albumin Level 4.5 3.5 - 5.0 g/dL [facility] Alkaline Phosphatase 63 39 - 117 U/L [facility] Blood Venous blood specimen / Unknown 10/21/2024 11:53 AM EDT 10/21/2024 2:34 PM EDT us Marii Mcmillan MD LAB BLOOD ORDERABLES Final Re sult [facility] [address] [place] [phone] * Vitamin D, 25-Hydroxy, Total, Immunoassay (10/10/2024 10:57 AM EDT) Vitamin D 25-OH Total 44.9 >30 ng/mL [facility] Comment: Health Based Reference Values*< 20 ng/mL Zaueibuep25-11 ng/mL Insufficient> 30 ng/mL Sufficient*Mavis CANTRELL. N [...] EDT 10/10/2024 2:45 PM EDT us Nita Steen [facility] LAB BLOOD ORDERABLES Final Res ult [facility] [address] [place] [phone] * Vitamin B12/Folate, Serum Panel (10/10/2024 10:57 AM EDT) Vitamin B12 581 200 - 900 pg/mL [facility] Comment:NORMAL 200-900 PG/ML INDETERMINATE 160-199 PG/ML DEFICIENT < 160 PG/ML Folate 10.6 > or = 4.0 ng/mL [facility] Comment:Reference Values:> o r = 4.0 ng/mL< 4.0 ng/mL suggests folate deficiency Methotrexate, aminopterin and folinic acid(leucovorin) are chemotherapeutic agents whose molecularstructures are similar to folate; therefore, the Architectfolate assay cannot be used for patients using these drugs. Blood Venous blood specimen / Unknown 10/10/2024 10:57 AM EDT 10/10/2024 2:45 PM EDT Nita Steen [facility] LAB BLOOD ORDERABLES Final Res ult Performing Organization Address [facility]/ZIP Co de Phone Number [facility] [address] [place] [phone] * HIV-1/2 Antigen and Antibodies, Fourth Generation, with Reflexes (08/12/2024 1:59 PM EDT) Pathologist [facility] HIV AB/AG Nonreactive Nonreactive [facility] Comment:HIV-1 p24 Ag and/or HIV-1/HIV-2 Ab not detected.A test result that is nonreactive does not exclude thepossibility of exposure to or infection with HIV-1 and/orHIV-2. Nonreactive results in this assay for individualswith prior exposure to HIV-1 and/or HIV-2 may be due toantigen and antibody levels that are below the limit ofdetection of this assay.The [employer] HIV Ag/Ab Combo assay result andsupplemental assay results should be interpreted inconjunction with the patient's clinical presentation,history and other laboratory results. If the results areinconsistent with clinical evidence, additional testing issuggested to confirm the result. Blood Venous blood specimen / Unknown 08/12/2024 1:59 PM EDT 08/12/2024 1:59 PM EDT Nita Steen [facility] LAB BLOOD ORDERABLES Final Res ult Performing Organization Address [facility]/ZIP Co de Phone Number [facility] [address] [place] [phone] * (ABNORMAL) Lipid Panel, Standard (08/12/2024 1:59 PM EDT) Pathologist [facility] Triglycerides 61 <150 mg/dL [facility] Comment:Desirable Triglyceri de: less than 150 mg/dLBorderline High Triglyceride 150-199 mg/dLHigh Triglyceride: 200-499 mg/dLVery High Triglyceride: greater than or equal to 5OO mg/dL Cholesterol 107 <200 mg/dL [facility] Comment:Desirable Cholestero l: less than 200 mg/dLBorderline High Cholesterol: 200-239 mg/dLHigh Cholesterol: greater than 239 mg/dL LDL Cholesterol Calculated 58 <100 mg/dL [facility] Comment:Desirable LDL: less than 100 mg/dLNear Optimal/Above Optimal LDL: 110- 129 mg/dLBorderline High LDL: 130-159 mg/dLHigh LDL: 160-189 mg/dLVery High LDL: greater than or equal to 190 mg/dL HDL Cholesterol 37(L) >40 mg/dL [facility] Comment:Desirable HDL: great er than 40 mg/dL Note: This HDL assay may give artificially low results in patients with liver disease. Blood Venous blood specimen / Unknown 08/12/2024 1:59 PM EDT 08/12/2024 1:59 PM EDT us Nita Steen PROMOTIONAL MARKETING ANALYST LAB BLOOD ORDERABLES Final Res ult [facility] [address] [place] [phone] from Last 3 Months or Most Recently Relevant to Health Maintenance [facility] Advance Directives Documents on File Type Date Recorded Patient Manager Entry Expl anation Advance Directives and Livin g Will 08/26/2024 2:22 PM HCP Care Teams Academic Computing Director Relationship Specialty Start Date End Date Marii Mcmillan MD [address] [place] [phone] PCP - General Family Medicine 07/11/21 Evelyne Green Electromechanical EngineerTransaction Manager 12/09/23
--- OUTSIDE RECORDS SUMMARY | 2025-01-09 15:45 | XMS_ITS | Encounter Summary ---
Author Organization [employer] Address [address] [place] [address] [address] [place] [address] Care Team Providers Care Inventory Representative Name Role Phone Marii Mcmillan MD Primary Care Provider [phone] Reason for Visit * Reason Comments Med Refill Encounter Details Date Type Department Care Team (Late Contact Info) Description 04/08/2022 Refill [facility] [address] [place] [address] Marii Mcmillan MD [address] [place] [address] Vitamin deficiency, unspecified Social History Tobacco Use [...] Info) Description 01/30/2025 1:00 PM EST Telemedicine [facility] [address] [place] [address] Leelee Castaneda RN [address] [place] [address] 03/13/2025 10:30 AM EST Clinical Support [facility] [address] [place] [address] documented as of this encounter Visit Diagnoses Diagnosis Vitamin deficiency, unspecified documented in this encounter Care Teams Inventory Representative Relationship Specialty Start Date End Date Marii Mcmillan MD [address] [place] [address] PCP - General Family Medicine 07/11/21 Evelyne Green Specialty TherapistInternet Retailer 12/09/23 documented as of this encounter"
--- OUTSIDE RECORDS SUMMARY | 2025-01-09 15:46 | XMS_ITS | Encounter Summary ---
Author Organization [employer] Address [address] [facility] [address] [place] [address] Care Team Providers Care Car Stereo Installer Name Role Phone Marii Mcmillan MD Primary Care Provider [phone] Reason for Visit * Reason Onset Date Comments Med Change Request 11/04/2023 Encounter Details Date Type Department Care Team ([facility] st Contact Info) Description 11/04/2023 Telephone [facility] MEDICINE [address] [place] [address] Marii Mcmillan MD [address] [place] [address] Med Change Request Social History Tobacco Use [...] Info) Description 01/30/2025 1:00 PM EST Telemedicine [facility] MED [facility] P[facility]S [address] [place] [address] Leelee Castaneda RN [address] [place] [address] 03/13/2025 10:30 AM EST Clinical Support [facility] [address] [place] [address] documented as of this encounter Visit Diagnoses Not on filedocumented in this encounter Additional Health Concerns Assessment Noted Time PHQ-9 Depression Total Score: 10 023 2:09 PM EST documented as of this encounter Care Teams Car Stereo Installer Relationship Specialty Start Date End Date Marii Mcmillan MD [address] [place] [phone] PCP - General Family Medicine 07/11/21 Evelyne Green Hand CutterSurfboard Maker 12/09/23 documented as of this encounter
--- OUTSIDE RECORDS SUMMARY | 2025-01-09 15:46 | XMS_ITS | Encounter Summary ---
Author Organization [employer] Address [address] [facility] 7t [place] [address] Care Team Providers Care Mounter Clarinets Name Role Phone Marii Mcmillan MD Primary Care Provider [phone] Reason for Visit * Reason Onset Date Comments Med Refill 01/28/2024 Encounter Details Date Type Department Care Team ([facility] st Contact Info) Description 01/28/2024 Telephone [facility] MEDICINE [address] [place] [address] Marii Mcmillan MD [address] [place] [address] Med Refill Social History Tobacco Use Types [...] MG tablet To be sent to: [facility]/pharmacy #[id number] MARY CARIAS - [phone] documented in this encounter Plan of Treatment Upcoming Encounters Date Type Department Care Team ([facility] st Contact Info) Description 01/30/2025 1:00 PM EST Telemedicine [facility] MED [facility] [address] [facility] [address] Leelee Castaneda, RN [address] [place] [address] 03/13/2025 10:30 AM EST Clinical Support [facility] MED [facility]EDS [address] [place] [address] documented as of this encounter Visit Diagnoses Not on filedocumented in this encounter Additional Health Concerns Assessment Noted Time PHQ-9 Depression Total Score: 10 023 2:09 PM EST documented as of this encounter Care Teams Mounter Clarinets Relationship Specialty Start Date End Date Marii Mcmillan MD [address] [place] [address] PCP - General Family Medicine 07/11/21 Evelyne Green Supervisor Volunteer ServicesPrint Developer Automatic 12/09/23 documented as of this encounter
--- OUTSIDE RECORDS SUMMARY | 2025-01-09 15:46 | XMS_ITS | Encounter Summary ---
Author Organization [employer] Address [address] [facility] [address] [place] [address] Care Team Providers Care Motor Vehicle Escort Driver Name Role Phone Marii Mcmillan MD Primary Care Provider [phone] Reason for Visit * Reason Onset Date Comments Med Refill 08/25/2024 Encounter Details Date Type Department Care Team ([facility] st Contact Info) Description 08/25/2024 Telephone [facility] MEDICINE [address] [place] [address] Marii Mcmillan MD [address] [place] [address] Med Refill Social History Tobacco Use Types [...] 5-325 MG tablet To be sent to: [facility]/pharmacy #[id number] MARY CARIAS - [phone] [facility] documented in this encounter Plan of Treatment Upcoming Encounters Date Type Department Care Team ([facility] st Contact Info) Description 01/30/2025 1:00 PM EST Telemedicine [facility] MED & PEDS [address] [place] [address] Leelee Castaneda RN [address] [place] [address] 03/13/2025 10:30 AM EST Clinical Support [facility] MED & PEDS [address] [place] [address] documented as of this encounter Visit Diagnoses Not on filedocumented in this encounter Additional Health Concerns Assessment Noted Time PHQ-9 Depression Total Score: 10 023 2:09 PM EST documented as of this encounter Care Teams Motor Vehicle Escort Driver Relationship Specialty Start Date End Date Marii Mcmillan MD [address] [place] [phone] PCP - General Family Medicine 07/11/21 Evelyne Green Auto Mechanic ApprenticeRn Telephonic 12/09/23 documented as of this encounter
--- OUTSIDE RECORDS SUMMARY | 2025-01-09 15:46 | XMS_ITS | Encounter Summary ---
Author Organization [employer] Address [address] [facility] 7t [place] [address] Care Team Providers Care Upholsterer Outside Name Role Phone Marii Mcmillan MD Primary Care Provider [phone] Reason for Visit * Reason Onset Date Comments Appointment Request 01/11/2024 Encounter Details Date Type Department Care Team ([facility] Contact Info) Description 01/11/2024 Telephone [facility] MEDICINE [address] [place] [address] Marii Mcmillan MD [address] [place], [place] [phone] Appointment Request Social History Tobacco Use Types [...] from pt calling in regards to tomorrows CATERPILLAR OPERATOR visit stating he is feeling sick and is wondering ifhe can change appt to a telephone visit. Please contact pt at [phone]. documented in this encounter Plan of Treatment Upcoming Encounters Date Type Department Care Team (Late st Contact Info) Description 01/30/2025 1:00 PM EST Telemedicine [facility] MED & PEDS 505 [place] [address] Leelee Castaneda, REGINA 505 [place] [address] 03/13/2025 10:30 AM EST Clinical Support [facility] MED & PEDS [address] [place] [address] documented as of this encounter Visit Diagnoses Not on filedocumented in this encounter Additional Health Concerns Assessment Noted Time PHQ-9 Depression Total Score: 10 023 2:09 PM EST documented as of this encounter Care Teams Upholsterer Outside Relationship Specialty Start Date End Date Marii Mcmillan MD [address] [place] [address] PCP - General Family Medicine 07/11/21 Evelyne Green Glass Forming Crew MemberAttendant Sales 12/09/23 documented as of this encounter
--- OUTSIDE RECORDS SUMMARY | 2025-01-09 15:46 | XMS_ITS | Encounter Summary ---
Author Organization [employer] Address [address] [facility] 7t [place] [address] Care Team Providers Care Egg Factory Worker Name Role Phone Marii Mcmillan MD Primary Care Provider [phone] Reason for Visit * Reason Onset Date Comments PT1 05/15/2023 Encounter Details Date Type Department Care Team ([facility] st Contact Info) Description 05/15/2023 Telephone [facility] MEDICINE [address] [place] [address] Marii Mcmillan MD [address] [place], [place] [phone] PT1 Social History Tobacco Use Types Packs/Day [...] visits) ( x monthly, weekly, daily) Address: [address] [place] [address] Facility: [facility] Wheel Chair: NO Golf Club Head Former Needed: NO Address and phone confirmed by Evelyne CHAWLA documented in this encounter Plan of Treatment Upcoming Encounters Date Type Department Care Team ([facility] st Contact Info) Description 01/30/2025 1:00 PM EST Telemedicine [facility] MED & PEDS [address] [place] [address] Leelee Castaneda, REGINA 505 [place] [address] 03/13/2025 10:30 AM EST Clinical Support [facility] MED & PEDS [address] [place] [address] documented as of this encounter Visit Diagnoses Not on filedocumented in this encounter Additional Health Concerns Assessment Noted Time PHQ-9 Depression Total Score: 10 023 2:09 PM EST documented as of this encounter Care Teams Egg Factory Worker Relationship Specialty Start Date End Date Marii Mcmillan MD [address] [place] [address] PCP - General Family Medicine 07/11/21 Evelyne Green Auto Service RepresentativeBranch Operations Manager 12/09/23 documented as of this encounter
--- OUTSIDE RECORDS SUMMARY | 2025-01-09 15:46 | XMS_ITS | Encounter Summary ---
Author Organization [employer] Address [address] [facility] 7t [place] [address] Care Team Providers Care Industrial Hygiene Engineer Name Role Phone Marii Mcmillan MD Primary Care Provider [phone] Reason for Visit * Reason Onset Date Comments Appointment Request 08/15/2024 Encounter Details Date Type Department Care Team ([facility] Contact Info) Description 08/15/2024 Telephone [facility] MEDICINE 230 [place] [address] Marii Mcmillan MD [address] [place], [place] [phone] Appointment Request Social History Tobacco Use Types [...] EDT Tc from pt requesting to reschedule MANAGER PEDIATRIC visit. Please contact pt at [phone]. documented in this encounter Plan of Treatment Upcoming Encounters Date Type Department Care Team (Late st Contact Info) Description 01/30/2025 1:00 PM EST Telemedicine [facility] MED & PEDS 505 [place] [address] Leelee Castaneda, RN 505 [place] [address] 03/13/2025 10:30 AM EST Clinical Support [facility] MED & PEDS 505 [place] [address] documented as of this encounter Visit Diagnoses Not on filedocumented in this encounter Additional Health Concerns Assessment Noted Time PHQ-9 Depression Total Score: 10 023 2:09 PM EST documented as of this encounter Care Teams Industrial Hygiene Engineer Relationship Specialty Start Date End Date Marii Mcmillan MD 230 [place] [address] PCP - General Family Medicine 07/11/21 Evelyne Green Cook Vacuum KettleWet Cleaner Machine 12/09/23 documented as of this encounter
--- OUTSIDE RECORDS SUMMARY | 2025-01-09 15:46 | XMS_ITS | Encounter Summary ---
Author Organization [employer] Address [address] [facility] 7t [place] [address] Care Team Providers Care Pipe Bender Name Role Phone Marii Mcmillan MD Primary Care Provider [phone] Reason for Visit * Reason Onset Date Comments CHART PREP 01/26/2024 Encounter Details Date Type Department Care Team ([facility] Contact Info) Description 01/26/2024 Telephone [facility] MED & PEDS [address] [place] [address] Marii Mcmillan MD 505 [place] [address] CHART PREP Social History Tobacco Use Types [...] [facility] [address] [place] [address] Leelee Castaneda, RN 505 [place] [address] 03/13/2025 10:30 AM EST Clinical Support [facility] MED & PEDS [address] [place] [address] documented as of this encounter Visit Diagnoses Diagnosis Polyarthralgia Pain in joint, multiple sites documented in this encounter Additional Health Concerns Assessment Noted Time PHQ-9 Depression Total Score: 10 023 2:09 PM EST documented as of this encounter Care Teams Pipe Bender Relationship Specialty Start Date End Date Marii Mcmillan MD 230 [place] [address] PCP - General Family Medicine 07/11/21 Evelyne Green Hand CementerUmbrella Supervisor 12/09/23 documented as of this encounter
--- OUTSIDE RECORDS SUMMARY | 2025-01-09 15:46 | XMS_ITS | Encounter Summary ---
Author Organization [employer] Address [address] [facility] 7t [place] [address] Care Team Providers Care Certified Physician Assistant Name Role Phone Marii Mcmillan MD Primary Care Provider [phone] Reason for Visit * Reason Onset Date Comments Med Refill 06/27/2024 Encounter Details Date Type Department Care Team ([facility] st Contact Info) Description 06/27/2024 Telephone [facility] MEDICINE [address] [place] [address] Marii Mcmillan MD [address] [place] [address] Med Refill Social History Tobacco Use Types [...] 5-325 MG tablet To be sent to: [facility]/pharmacy #[id number] MARY CARIAS - [address] [facility] documented in this encounter Plan of Treatment Upcoming Encounters Date Type Department Care Team ([facility] st Contact Info) Description 01/30/2025 1:00 PM EST Telemedicine [facility] MED & PEDS 505 [place] [address] Leelee Castaneda RN 505 [place] [address] 03/13/2025 10:30 AM EST Clinical Support [facility] MED & PEDS 505 [place] [address] documented as of this encounter Visit Diagnoses Not on filedocumented in this encounter Additional Health Concerns Assessment Noted Time PHQ-9 Depression Total Score: 10 023 2:09 PM EST documented as of this encounter Care Teams Certified Physician Assistant Relationship Specialty Start Date End Date Marii Mcmillan MD [address] [place] [address] PCP - General Family Medicine 07/11/21 Evelyne Green Reservoir Engineering ConsultantRetail Grocer 12/09/23 documented as of this encounter
--- OUTSIDE RECORDS SUMMARY | 2025-01-09 15:46 | XMS_ITS | Encounter Summary ---
Author Organization [employer] Address [address] [facility] 7t [place] [address] Care Team Providers Care Shipping Clerk Name Role Phone Marii Mcmillan MD Primary Care Provider Encounter Details Date Type Department Care Team ([facility] Contact Info) Description 06/22/2023 Telephone [facility] MEDICINE 230 [place] [address] Marii Mcmillan MD 505 [place], [place] [phone] Social History Tobacco Use Types Packs/Day Years [...] Info) Description 01/30/2025 1:00 PM EST Telemedicine [facility] MED & PEDS 505 [place] [address] Leelee Castaneda RN 505 [place] [address] 03/13/2025 10:30 AM EST Clinical Support [facility] MED & PEDS [address] [place] [address] documented as of this encounter Visit Diagnoses Not on filedocumented in this encounter Additional Health Concerns Assessment Noted Time PHQ-9 Depression Total Score: 10 023 2:09 PM EST documented as of this encounter Care Teams Shipping Clerk Relationship Specialty Start Date End Date Marii Mcmillan MD 230 [place] [address] PCP - General Family Medicine 07/11/21 Evelyne Green Wool CarderVending Technician 12/09/23 documented as of this encounter
--- OUTSIDE RECORDS SUMMARY | 2025-01-09 15:46 | XMS_ITS | Encounter Summary ---
Author Organization [employer] Address [address] [facility] 7t [place] [address] Care Team Providers Care High Lead Yarder Name Role Phone Marii Mcmillan MD Primary Care Provider [phone] Reason for Visit * Reason Onset Date Comments Appointment Request 04/22/2023 Encounter Details Date Type Department Care Team ([facility] Contact Info) Description 04/22/2023 Telephone [facility] MED & PEDS 505 [place] [address] Marii Mcmillan MD 505 [place] [address] Appointment Request Social History Tobacco Use Types [...] was scheduled for SDC apt today in [facility] but, due to car not starting [...] fever. Pt is offered to come to [facility] today or tomorrow morning but, Pt would rather come to [facility]. Pt is advised to call back [...] (Car wont Start) Please contact pt @ [phone] documented in this encounter Plan of Treatment Upcoming Encounters Date Type Department Care Team (Late st Contact Info) Description 01/30/2025 1:00 PM EST Telemedicine [facility] MED & PEDS [address] [place] [address] Leelee Castaneda RN 505 [place] [address] 03/13/2025 10:30 AM EST Clinical Support [facility] MED & PEDS [address] [place] [address] documented as of this encounter Visit Diagnoses Not on filedocumented in this encounter Additional Health Concerns Assessment Noted Time PHQ-9 Depression Total Score: 10 023 2:09 PM EST documented as of this encounter Care Teams High Lead Yarder Relationship Specialty Start Date End Date Marii Mcmillan MD [address] [place] [address] PCP - General Family Medicine 07/11/21 Evelyne Green Customer Operations AssociateBottle Blower 12/09/23 documented as of this encounter
--- OUTSIDE RECORDS SUMMARY | 2025-01-09 15:46 | XMS_ITS | Patient Health Record ---
Author Organization [facility] Address [address] [place] [address] Care Team Providers Care Supervisor [place] Name Role Phone Iman CAGLE, Maryjo Primary [...] Problem Status W/U Status Risk Notes Problem Alcoholic cirrhosis (931511105) Alcoholic cirrhosis of liver without ascites (K70.30) Active confirmed Plan Of Treatment No Information Insurance Providers Payer Name Payer Address Payer Phone Subscriber Number Group Number Insured Name Patient Relationship to Insured Coverage Start Date Coverage End Date [facility] [address] [address] [place], [place] [id number] LISA DWYER Self - patient is the insured Medical (General) History Medical History History ICD Code left bundle-branch block tuberculosis glaucoma anxiety/depression/mood disorder with pa ranoia cirrhosis substance abuse, and in remission asthma disc disease Surgical History Surgery Date(Month/Year) eye surgery ear surgery cholecystectomy hernia repair
--- OUTSIDE RECORDS SUMMARY | 2025-01-09 15:46 | XMS_ITS | Encounter Summary ---
Author Organization [employer] Address [address] [facility] 7t [place] [address] Care Team Providers Care Lead Recreation Assistant Name Role Phone Marii Mcmillan MD Primary Care Provider [phone] Encounter Details Date Type Department Care Team ([facility] Contact Info) Description 08/18/2024 Orders Only [facility] MED & PEDS [address] [place], [place] [phone] Nita Steen FNP 505 [place] [address] Social History Tobacco Use Types Packs/Day Years [...] Upcoming Encounters Date Type Department Care Team ([facility] st Contact Info) Description 01/30/2025 1:00 PM EST Telemedicine [facility] MED & PEDS [address] [place] [address] Leelee Castaneda RN 505 [place] [address] 03/13/2025 10:30 AM EST Clinical Support [facility] MED & PEDS [address] [place] [address] documented as of this encounter Visit Diagnoses Not on filedocumented in this encounter Additional Health Concerns Assessment Noted Time PHQ-9 Depression Total Score: 10 023 2:09 PM EST documented as of this encounter Care Teams Lead Recreation Assistant Relationship Specialty Start Date End Date Marii Mcmillan MD [address] [place] [address] PCP - General Family Medicine 07/11/21 Evelyne Green Web RetailerSteward Dishwasher 12/09/23 documented as of this encounter
--- OUTSIDE RECORDS SUMMARY | 2025-01-09 15:46 | XMS_ITS | Encounter Summary ---
Author Organization [employer] Address [address] [facility] 7t [place] [address] Care Team Providers Care Joint Maker Machine Name Role Phone Marii Mcmillan MD Primary Care Provider [phone] Reason for Visit * Reason Onset Date Comments Referral 03/12/2023 Encounter Details Date Type Department Care Team ([facility] Contact Info) Description 03/12/2023 Telephone [facility] MED & PEDS [address] [place] [address] Marii Mcmillan MD 505 [place] [address] Referral Social History Tobacco Use Types Packs/Day [...] 03/12/2023 4:18 PM EST Referral re-faxed to [facility] gastro. * Telephone Encounter - Brooke Corral - 03/12/2023 1:49 PM EST Tc from [facility] office of [facility] gastroenterology has not received referral. documented in this encounter Plan of Treatment Upcoming Encounters Date Type Department Care Team ([facility] st Contact Info) Description 01/30/2025 1:00 PM EST Telemedicine [facility] MED & PEDS [address] [place] [address] Leelee Castaneda RN 505 [place] [address] 03/13/2025 10:30 AM EST Clinical Support [facility] MED & PEDS [address] [place] [address] documented as of this encounter Visit Diagnoses Not on filedocumented in this encounter Additional Health Concerns Assessment Noted Time PHQ-9 Depression Total Score: 10 023 2:09 PM EST documented as of this encounter Care Teams Joint Maker Machine Relationship Specialty Start Date End Date Marii Mcmillan MD [address] [place] [address] PCP - General Family Medicine 07/11/21 Evelyne Green Integrated Program TeacherFlight Instructor 12/09/23 documented as of this encounter
--- OUTSIDE RECORDS SUMMARY | 2025-01-09 15:46 | XMS_ITS | Encounter Summary ---
Author Organization [employer] Address [address] [place] [address] 7 [place] [address] Care Team Providers Care Security Director Name Role Phone Marii Mcmillan MD Primary Care Provider [phone] Reason for Referral * Imaging (STAT) - Closed Specialty Diagnoses / Procedures Referred By Contac t Referred To Contact Radiology Diagnoses Mass of right inguinal region Procedures Us Pelvis complete Gildardo Huertas MD [address] [place] [address] Phone: tel: fax: [address] Phone: tel: fax: Referral ID Status Reason Start Date Expiration Date Visits Re quested Visits Authorized [id number] Closed 09/18/2022 09/18/2023 1 1 Encounter Details Date Type Department Care Team (Late st Contact Info) Description 09/18/2022 Orders Only [facility] MED & PEDS [address] [place] [address] Gildardo Huertas MD [address] [place] [address] Mass of right inguinal region (Primary Dx) [...] [facility] st Contact Info) Description 01/30/2025 1:00 PM EST Telemedicine [facility] MED & PEDS [address] [place] [address] Leelee Castaneda, RN 505 [place] [address] 03/13/2025 10:30 AM EST Clinical Support [facility] MED & PEDS [address] [place] [address] Scheduled Orders Name Type Priority Associated Diagnoses [...] PM EDT Narrative 09/25/2022 10:43 AM EDT [address] [address] Ultrasound Report Signed Patient: Manuel Grimm MR#: [id number] : 1960 Acct:[id number] Age/Sex: 62 / M ADM Date: 09/18/22 Loc: HO.US Attending Dr: Marii Mcmillan MD Ordering Physician: Marii Mcmillan MD Date of Service: 09/18/22 Procedure(s): US pelvic limited Accession Number(s): [id number] cc: Marii Mcmillan MD EXAMINATION: US RIGHT [...] in OV> 09/25/22 1039 DD/ 1503 TD/TT: Bank Appraiser: Procedure Note Donotuseinterpreter, Image - 09/25/2022 [place] [address] Ultrasound Report Signed Patient: Manuel Grimm DMR#: [id number] : 1Acct:[id number] Age/Sex: 62 / MADM Date: 09/18/22 Loc: HO.US Attending Dr: Marii Mcmillan MD Ordering Physician: Marii Mcmillan MD Date of Service: 09/18/22 Procedure(s): US pelvic limited Accession Number(s): [id number] cc: Marii Mcmillan MD EXAMINATION: US RIGHT [...] in OV> 09/25/22 1039 DD/ 1503 TD/TT: Bank Appraiser: [facility] External Provider IMG US PROCEDURES Final Result documented in this encounter Visit Diagnoses Diagnosis Mass of right inguinal region- Primary documented in this encounter Additional Health Concerns Assessment Noted Time PHQ-9 Depression Total Score: 10 023 2:09 PM EST documented as of this encounter Care Teams Security Director Relationship Specialty Start Date End Date Marii Mcmillan MD [address] [place] [address] PCP - General Family Medicine 07/11/21 Evelyne Green Side Door ManSpring Fitter 12/09/23 documented as of this encounter
== END 2025-01-09 13:20 | disposition home or self-care (01) ==
LOC: HO.HGS 12:25
PROVIDERS: PCP Family Medicine; Visit Provider Surgery
DX: R10.31 Right lower quadrant pain (principal)
CPT/HCPCS: 99214

== ENCOUNTER → 2025-01-09 12:25 | Outpatient (BNVA) | payer MEDICAID, SELFPAY | PROVIDERS: PCP Family Medicine; Visit Provider Surgery | DX: R10.31 Right lower quadrant pain (principal) | CPT/HCPCS: 99212 ==

== ENCOUNTER 2025-01-26 11:38 | Emergency (ER) | payer MEDICAID, SELFPAY ==
--- NOTE | ~2025-01-26 | CT_ITS ---
CLINICAL HISTORY: right groin pain CT abdomen and pelvis with contrast Comparison: US/[place]/SR - US ABDOMEN LIMITED WITH LIVER ELASTOGRAPHY - 06/16/24 09:[address]/SR - CT ABDOMEN PELVIS WITHOUT IV CONTRAST - 12/03/22 11:21 EDT Findings: No consolidation at the lung bases. Calcified granuloma. Subsegmental atelectasis versus linear scarring. Moderate centrilobular emphysema. Status post cholecystectomy. Unremarkable bladder. Cirrhotic liver. Pancreatic parenchymal calcifications with ductal dilatation, likely the sequela of chronic pancreatitis. Subcentimeter low attenuating lesion in the spleen. The other solid organs are unremarkable. No bowel wall thickening or dilation. A normal appendix is identified. No aneurysm. Moderate calcified atherosclerotic disease. Varices most prominent in the anterior abdominal wall. No lymphadenopathy. No ascites. No acute osseous abnormality. Small fat containing left inguinal hernia, unchanged. No acute findings in the right groin Impression: No acute findings. This document has been electronically signed by: Constance Aguilar MD on 01/26/2025 19:13:40
--- NOTE | ~2025-01-26 | US_ITS ---
EXAMINATION: US TRIPLEX LOWER EXTREMITY, RIGHT CLINICAL INFORMATION: Edema COMPARISON: None available. TECHNIQUE: Color-flow triplex imaging with spectral analysis and compression Doppler were performed on the right lower extremity. FINDINGS: Respiratory variation, normal compression and augmented flow are noted throughout the right lower extremity. The visualized common femoral vein, superficial femoral vein, profunda femoral vein, popliteal vein and midcalf peroneal and posterior tibial venous segments show no evidence of deep venous thrombosis. There is no Lopez's cyst. US/US venous duplex LE RT IMPRESSION: No evidence of deep venous thrombosis involving the right lower extremity. Electronically signed by: William Lau MD 01/26/2025 01:22 PM EST
--- NOTE | ~2025-01-26 | XR_ITS ---
EXAMINATION: XR TIBIA AND FIBULA, RIGHT CLINICAL INFORMATION: osteomyelitits? redness/swollen COMPARISON: None available. TECHNIQUE: AP and lateral views of the right tibia and fibula were obtained. FINDINGS: No osteolysis. No lytic or blastic lesions. No periosteal bone reaction. No acute cortical disruption. No gross subcutaneous emphysema. XR/XR tibia fibula RT 2V IMPRESSION: Negative for osteomyelitis. Electronically signed by: Jose Alvarado MD 01/26/2025 12:13 PM EST
[2025-01-26 11:43] VITALS: BP 149/71; PULSE 72; RESP 18; TEMP 36.8; O2SAT 98; BMI 20.3
--- NOTE | 2025-01-26 11:49 | ED.GENADULT ---
HPI - General Adult General Chief complaint: General Medical Stated complaint: Leg pain Time Seen by Provider: 01/26/25 13:20 Source: patient and family Mode of arrival: ambulatory Limitations: no limitations History of Present Illness ED Provider: DR. Mcdowell HPI narrative: a 64-year-old male came in for evaluation of right groin pain radiating to right thigh area pain has been constant for the past few months patient takes Percocet for chronic pain at home for this pain patient thinks that this chronic right thigh pain is secondary to old injury to the right groin muscle after stretching and felt a pop to the area, stated that the pain and swelling in the right lower extremity has been worse for the past week, no recent trauma injury, no recent travel or prolonged immobilization, no history of DVT. No fever, no chills, +chronic rash to lower extremity bilaterally for over a year. Patient normally take oxycodone for chronic pain control at home. Related Data Home Medications ?Medication ?Instructions ?Recorded ?Confirmed hydrochlorothiazide 12.5 mg tablet 1 tab PO QAM 08/26/21 10/19/24 tamsulosin 0.4 mg capsule 1 cap PO QAM 08/26/21 10/19/24 potassium citrate 10 mEq (1,080 10 meq PO QAM 06/27/22 10/19/24 mg) tablet,extended release phytonadione (vitamin K1) 100 mcg 100 mcg PO QAM 05/09/24 10/19/24 tablet turmeric root extract 150 1 tab PO QAM 05/09/24 10/19/24 mg-clementina root extract 25 mg chewable tablet Previous Rx's ?Medication ?Instructions ?Recorded Raised toilet seat #1 ea 03/21/24 walker #1 ea 03/21/24 SHOWER CHAIR #1 ea 06/02/24 ascorbic acid (vitamin C) 1,000 mg 1 g PO DAILY #90 caps 06/18/24 capsule cholecalciferol (vitamin D3) 50 50 mcg PO DAILY #90 caps 06/18/24 mcg (2,000 unit) capsule walker #1 ea 10/24/24 Allergies Allergy/AdvReac Type Severity Reaction Status Date / Time aspirin (ASA) Allergy Severe told to Verified 01/26/25 11:44 not take due to beeding NSAIDS (Non-Steroidal Allergy Severe advised Verified 01/26/25 11:44 Anti-Inflamma not to take due to bleeding Penicillins (PENICILLINS) Allergy Severe Rash, hives Verified 01/26/25 11:44 codeine Allergy Intermediate Rash Verified 01/26/25 11:44 naproxen (NAPROXEN) Allergy Intermediate Abdominal Verified 01/26/25 11:44 Pain tuberculin, purified protein Allergy Intermediate hx TB as a Verified 01/26/25 11:44 deriva (TB TEST) child acetaminophen (From TYLENOL) AdvReac Intermediate cannot Verified 01/26/25 11:44 take due to cirrhosis dx mesalamine (From ASACOL) AdvReac Intermediate worsening Verified 01/26/25 11:44 abdominal pain pseudoephedrine (From AdvReac Unknown advised Verified 01/26/25 11:44 SUDAFED) not to take-glaucoma dx Review of Systems Review of Systems: All other systems are reviewed and are negative Constitutional: Reports as per HPI and Reports no additional constitutional complaints Eyes: Reports as per HPI and Reports no additional eye complaints Reports system reviewed and no additional complaints, except as documented Cardiovascular: Reports as per HPI and Reports no additional cardiovascular complaints Respiratory: Reports as per HPI and Reports no additional respiratory complaints Gastrointestinal: Reports as per HPI and Reports no additional gastrointestinal complaints Genitourinary: Reports no additional female genitourinary complaints Musculoskeletal: Reports no additional musculoskeletal complaints Skin/Breast: Reports system reviewed and no additional complaints, except as docu Psychiatric: Reports no additional psychiatric complaints Endocrine: Reports no additional endocrine complaints Hematologic/Lymphatic: Reports no additional hematologic/lymphatic complaints Allergic/Immunologic: Reports no additional allergic/immunologic complaints Reports system reviewed and no additional complaints, except as documented and Reports Abnormal speech present [facility] Past Medical History Medical History Cataracts, bilateral Wears dentures Legally blind in left eye, as defined in [place] Deafness in right ear Arthritis Back pain Hx of hepatitis C Hx of tuberculosis PTSD (post-traumatic stress disorder) COPD (chronic obstructive pulmonary disease) Asthma Left bundle branch block (LBBB) Thrombocytopenia Afib Glaucoma Hypertension Anxiety Depression Cirrhosis Surgical History H/O colonoscopy Hx of hernia repair History of tooth extraction (~2002) History of cardiac catheterization (~2009) History of ear surgery (~1990) History of cholecystectomy (~2009) H/O abdominal surgery S/P LASIK surgery of both eyes Family History Family History Mother Breast cancer Rheumatoid arthritis Social History Social History Household Members: Friend(s) Household Members Other:: niece, adult Housing: House Are you a primary zoo caretaker to a significant other at home: No Do you presently have visiting nurse or other home services: No Patient Tobacco Use Status: Former Tobacco user Tobacco use type: Cigarette Years Smoked: quit age 57 Second Hand Smoke Exposure: Yes Substance Use Type: Marijuana Advance Directives: No Advance Directives Information Provided: Yes service: No Current occupational status: disabled Physical Exam ED Vital Signs: Vital Signs - 24 hr 01/26/25 11:43 01/26/25 17:13 01/26/25 18:10 Temperature 98.2 F 97.6 F 98.0 F Pulse Rate 72 79 76 Respiratory Rate 18 18 20 Blood Pressure 149/71 H 114/74 121/76 Pulse Oximetry 98 96 96 Oxygen Delivery Method Room Air Room Air Room Air BMI result Body Mass Index 20.3 Vital signs have been reviewed and appear to be correct. Blood pressure elevated. Heart rate normal. Respiratory rate normal. Temperature normal. Oxygen saturation normal. Appearance: Alert. Oriented X3. No acute distress. Head: Normal external exam. Normocephalic. Atraumatic. No Bowen signs noted. No raccoon eyes noted Eyes: PERRLA. EOMI. Conjunctiva and sclera normal. Eyelids normal. ENT: TM's Normal. Pharynx normal. Uvula midline. Moist mucous membranes. No trismus noted. No drooling noted. No muffled voice noted. Neck: Normal inspection. Neck supple. FROM. No adenopathy. Thyroid Normal. No meningeal signs. No neck mass noted. CVS: Normal heart rate and rhythm. Heart sound normal. No murmurs noted. Pulses normal throughout. Respiratory: No respiratory distress. Painless inspiration. Breath sounds normal. No wheezes/rales/rhonchi noted. Chest nontender. No accessory muscle usage noted or decreased air movement noted. Abdomen: Soft and nontender. Bowel sounds normal in all 4 quadrants. No distention noted. No organomegaly noted. No visible injury noted. Back: No CVA tenderness. Full range of motion noted. Skin: Skin warm and dry. Normal skin color. Normal skin turgor. No rashes/lesions/lacerations noted. Extremities: Right lower extremity exam: Mild tenderness along the inner aspect of the right thigh and right groin, no step-off, no deformity. Increased pain with abduction of the right thigh, neurovascularly intact. Neuro: Oriented X 3. Cranial nerve exam: II-XII are grossly intact No motor deficit. No sensory deficit. Reflexes normal. Course Course Course Narrative: RME: 64-year-old male presents to ED for right lower extremity swelling pain that is worsened this past week. Patient denies any recent trauma chest pain shortness of breath. Physical exam positive for right lower extremity swelling with redness and warmth. Ultrasound labs x-ray ordered. Reevaluation(s) Reevaluation #1: Right lower extremity myofascial pain, negative ultrasound for DVT, negative x-ray for acute findings, chronic rash that is not looking cellulitis. Hemodynamically stable. Time: 15:08 Reevaluation #2: patient stated that he has been having right lower quadrant abdominal pain/right groin pain for the last 2-3 days which he thinks that is what is causing his right leg pain will consider CT abdomen and pelvis with IV contrast THAT WAS UNREMARKABLE WILL discharge the patient to follow-up with PCP. Time: 19:31 Medications Administered Discontinued Medications Generic Name Dose Route Start Last Admin Trade Name Freq PRN Reason Stop Dose Admin Hydromorphone HCl 2 mg 01/26/25 14:55 01/26/25 15:37 Hydromorphone Hcl 2 Mg Tablet PO 01/26/25 14:56 2 mg ONCE ONE Administration Iohexol 100 ml 01/26/25 18:20 01/26/25 18:20 Iohexol 350 Mg/Ml 100 Ml Infus..Btl IV 01/26/25 18:21 85 ml ONCE ONE Administration Medical Decision Making Differential Diagnosis Differential Diagnoses: The differential diagnosis associated with the presentation includes ( DVT, cellulitis, myofascial pain, fracture right lower extremity.) Admission/Observation Consideration of admission/observation: Escalation of care including admission/observation considered Lab Data MDM Lab Attestation statement: I reviewed the patient's lab results. 01/26/25 12:00 01/26/25 12:00 Labs: Lab Results 01/26/25 Range/Units 12:00 WBC 4.7 L (4.8-10.8) X10*3/uL RBC 4.81 (4.60-5.80) X10*6/uL Hgb 14.7 (14.0-18.0) g/dl Hct 42.7 (42.0-52.0) % MCV 88.8 (80.0-98.0) fL MCH 30.6 (27.0-33.0) pg MCHC 34.4 (31.0-36.0) g/dl RDW 12.9 (11.0-16.0) % Plt Count 124 L (160-400) X10*3/uL MPV 9.4 (9.4-12.4) fL Immature Gran % (Auto) 0.2 (0.0-0.4) % Neut % (Auto) 48.1 (45-73) % Lymph % (Auto) 26.2 (20-40) % [place] % (Auto) 16.1 H (2-11) % Eos % (Auto) 8.8 H (0-4) % Baso % (Auto) 0.6 (0-2) % Lymph # (Auto) 1.2 (1.2-4.9) X10*3/uL [place] # (Auto) 0.8 (0.1-1.2) X10*3/uL Eos # (Auto) 0.4 (0.0-0.4) X10*3/uL Baso # (Auto) 0.0 (0.0-0.2) X10*3/uL Abs Immat Gran (auto) 0.01 (0.00-0.03) X10*3/uL Absolute Neuts (auto) 2.2 (2.0-8.3) x10*3/uL Absolute Nucleated RBC 0.000 (0.0-0.012) X10*3/uL Nucleated RBC % (auto) 0.0 (0.0-0.2) /100WBC ESR 5 (0-15) MM/HR PT 12.2 (11.2-13.5) SEC INR 1.0 (0.9-1.1) APTT 30.7 (26.7-34.1) SEC Sodium 142 (135-145) mmol/L Potassium 3.9 (3.3-5.1) mmol/L Chloride 108 (96-108) mmol/L Carbon Dioxide 27 (22-29) mmol/L Anion Gap 11 L (12-20) BUN 22 H (9-16) mg/dL Creatinine 0.78 (0.5-1.4) mg/dL Estim Creat Clear Calc 77.1 Estimated GFR > 60 Random Glucose 88 (60-115) mg/dL Calcium 9.5 (8.4-10.2) mg/dL Total Bilirubin 0.8 (0.0-1.0) mg/dL AST 73 H (5-37) U/L ALT 29 (0-40) U/L Alkaline Phosphatase 56 (39-117) U/L Total Creatine Kinase 66 (38-174) U/L C-Reactive Protein < 0.04 (< or = 0.50) mg/dL Total Protein 7.2 (6.5-8.0) g/dL Albumin 4.5 (3.5-5.0) g/dL Independent Interpretation I performed an independent interpretation of an: Plain X-Ray ( Left lower extremity: No acute pathology.) and Ultrasound ( Left lower extremity: No DVT.) Radiology Impression Discussion of test interpretation with radiology: I have reviewed the radiologist's reading. Discharge Plan Discharge Clinical Impression: Pulled muscle, Acute myofascial pain Patient Disposition: Home, Self-Care Instructions: Musculoskeletal Pain (ED) Prescriptions: No Action (DME) walker Misc See Rx Instructions .MEDSUPPLY Qty: 1 0RF Rx Instructions: Folding Front wheeled walker duration 99 days (DME) Raised toilet seat See Rx Instructions .ROUTE .MEDSUPPLY Qty: 1 0RF Rx Instructions: duration - 99 days ascorbic acid (vitamin C) 1,000 mg capsule 1 g PO DAILY Qty: 90 2RF cholecalciferol (vitamin D3) 50 mcg (2,000 unit) capsule 50 mcg PO DAILY Qty: 90 2RF (DME) walker Misc See Rx Instructions .MEDSUPPLY Qty: 1 0RF Rx Instructions: Folding front wheeled walker tamsulosin 0.4 mg capsule 1 cap PO QAM hydrochlorothiazide 12.5 mg tablet 1 tab PO QAM turmeric root-clementina root ext 150-25 mg Tablet,Chewable 1 tab PO QAM potassium citrate 10 mEq (1,080 mg) tablet extended release 10 meq PO QAM (DME) SHOWER CHAIR See Rx Instructions .ROUTE .MEDSUPPLY Qty: 1 0RF Rx Instructions: As directed phytonadione (vitamin K1) 100 mcg tablet 100 mcg PO QAM Referrals: Marii Mcmillan MD [Primary Care Provider, Medical] Interventions: ED Discharge Assessment Last Done: 01/26/25 19:35 Discharge Date/Time: 01/26/25 19:35 Print Language: Divehi
[2025-01-26 12:04] LABS: MANUAL DIFF FLAG NO
[2025-01-26 12:08] LABS: Hematocrit 42.7 % (42.0-52.0); Hemoglobin 14.7 g/dl (14.0-18.0); Imm Gran Abs Auto 0.01 X10*3/uL (0.00-0.03); Imm Gran Pct Auto 0.2 % (0.0-0.4); Lymphocytes Absolute Auto 1.2 X10*3/uL (1.2-4.9); Mean Corpuscular HGB Conc 34.4 g/dl (31.0-36.0); Mean Corpuscular Hemoglobin 30.6 pg (27.0-33.0); Mean Corpuscular Volume 88.8 fL (80.0-98.0); NRBC Abs Auto 0.000 X10*3/uL (0.0-0.012); NRBC Pct Auto 0.0 /100WBC (0.0-0.2); Platelet Count 124 X10*3/uL (160-400); Red Blood Count 4.81 X10*6/uL (4.60-5.80); White Blood Count 4.7 X10*3/uL (4.8-10.8)
[2025-01-26 12:14] LABS: INTERNATIONAL NORM RATIO 1.0 (0.9-1.1); Prothrombin Time 12.2 SEC (11.2-13.5)
[2025-01-26 12:17] LABS: Partial Thromboplastin Time 30.7 SEC (26.7-34.1)
[2025-01-26 12:29] LABS: Alanine Aminotransferase 29 U/L (0-40); Albumin Level 4.5 g/dL (3.5-5.0); Alkaline Phosphatase 56 U/L (39-117); Anion Gap 11 (12-20); Aspartate Amino Transferase 73 U/L (5-37); Blood Urea Nitrogen 22 mg/dL (9-16); Calcium 9.5 mg/dL (8.4-10.2); Carbon Dioxide 27 mmol/L (22-29); Chloride 108 mmol/L (96-108); Creatinine Clr Calc Pharmacy 77.1; Estimated Glomerular Filt Rate > 60; Potassium 3.9 mmol/L (3.3-5.1); Sodium 142 mmol/L (135-145); Total Protein 7.2 g/dL (6.5-8.0)
[2025-01-26 12:43] LABS: Erythrocyte Sedimentation Rate 5 MM/HR (0-15)
--- OUTSIDE RECORDS SUMMARY | 2025-01-26 15:32 | XMS_ITS | Clinical Summary ---
Author Organization [employer] Address [address] [place] [address] [address] [place] [address] Care Team Providers Care Procurement Manager Name Role Phone Marii Mcmillan MD Primary Care Provider [phone] Allergies Active Allergy Reactions Criticality Noted Date [...] MOUTH EVERY DAY 90 tablet 1 Active Galzin 50 MG capsule Take [...] to 28 days. Do not start before January 24, 2025. 112 tablet 025 2024 Active gabapentin (Neurontin) 100 MG capsule Take 1 capsule (100 mg) by mouth at bedtime. 90 capsule 1 Active gabapentin (Neurontin) 100 MG capsule Take 1-2 capsules (100-200 mg) by mouth at bedtime. 90 capsule 1 025 2024 Discontinued oxyCODONE (Roxicodone) 5 MG immediate [...] he has had prior cardiac catheterizations in [facility] as well as [place] but more than 10-15 years ago. Patient [...] and was normal. Plan to schedule with [facility] GI History of cardiac arrhythmia 08/05/2024 Assessment & Plan (08/05/2024 7:53 PM EDT): - Reports previous cardiac cath at [facility] and [place] > 10 years ago. No remarkable findings. - May 2024 consult note from [facility] Cards: Echo with LVEF 59% Myocardial perfusion [...] Plan (08/05/2024 7:42 PM EDT): Following with [facility] GI - Dr. Pratt Per last consult [...] Plan (08/05/2024 7:47 PM EDT): Following with [facility] Ortho, plan for right TKA Before proceeding with surgery, would like to r/o obstruction in RLE. Order for US placed July 2024. Assessment & Plan (01/29/2024 1:37 AM EST): Pt is still experiencing pain. Relevant orders: Referral to Orthopaedic Surgery Assessment & Plan (07/07/2023 3:56 PM EDT): extension service specialist will further monitor hip pain. Assessment & Plan (04/21/2023 1:34 PM EST): Patient with Hx of Hip Arthritis stated that medications are not improving hip pain. Therefore, will discontinue prior medications, and will be prescribing Oxycodone. Recommended to follow up with an in-person visit. Assessment & Plan (02/26/2023 3:51 PM EST): [facility] that [facility] compp[facility]aints of R Hip Pain will [...] mother with Rheumatoid arthritis - Consult at [facility] Rheum in May 2022 with plan for [...] organization. Date Type Department Care Team Description 01/26/2025 Orders Only GENERIC EXTERNAL DATA DEPARTMENT Provider, Generic External Data 01/25/2025 Refill [facility] [address] [place] [address] Nita Steen FNP 01/25/2025 Telephone [facility] [address] [place], [place] [phone] Marii Mcmillan MD Prior Auth Prescription 01/18/2025 Telephone [facility] [address], [place] [phone] Marii Mcmillan MD Medication Question 12/27/2024 Refill [facility] [address], [place] [phone] Marii Mcmillan MD Right hip pain 12/20/2024 Telephone [facility] [address] [place] [address] Marii Mcmillan MD Call Back Request 12/09/2024 Refill [facility] [address] [place] [address] Marii Mcmillan MD 11/28/2024 Refill [facility] [address] [place] [address] Marii Mcmillan MD Right hip pain (Primary Dx) 11/09/2024 3:15 PM EDT Clinical Support [facility] [address] [place] [address] Leelee Castaneda RN Chronic low back pain, unspecified back pain laterality, unspecified whether sciatica present 11/09/2024 Refill [facility] [address] [place] [address] Leelee Castaneda RN 11/09/2024 Travel 11/08/2024 Travel 10/26/2024 Results Follow-Up [facility] [address] [place] [address] Nita Steen FNP Vitamin D, 25-Hydroxy, Total, Immunoassay, Vitamin B12/Folate, Serum Panel, Iron And Total Iron Binding Capacity, CBC auto differential from Last 3 Months Immunizations Immunization Administration [...] Upcoming Encounters Date Type Department Care Team ([facility] st Contact Info) Description 01/30/2025 1:00 PM EST Telemedicine [facility] [address] [facility] [address] Leelee Castaneda, RN [address] [place] [address] 03/13/2025 10:30 AM EST Clinical Support [facility] [address] [facility] [address] Health Maintenance Due Date Last Done Comments CT Colonography 1960 Colonoscopy 1960 Colorectal Cancer Screening 1960 FIT DNA/Cologuard 1960 FIT 1960 FOBT 1960 Sigmoidoscopy 1960 Alcohol/Substance Use Screening 1972 RSV Patients and Patients Aged 60 years or older (1 - Risk 50-74 years 1-dose series) 2010 Zoster Vaccines (1 of 2) 2010 Hepatitis B Vaccines (3 of 3 - [...] Name Priority Date/Time Associated Diagnosis Comments US VENOUS DUPLEX LE RT Routine 12:55 PM EST XR TIBIA FIBULA 2 VIEWS RIGHT Routine 01/26/2025 12:04 PM EST CREATINE KINASE, TOTAL Routine 12:00 PM EST SED RATE BY MODIFIED WESTERGREN Routine 01/26/2025 12:00 PM EST C-REACTIVE PROTEIN Routine 01/26/2025 12 :00 PM EST COMPREHENSIVE METABOLIC PANEL Routine 01/26/2025 12:00 PM EST APTT Routine 01/26/2025 12:00 PM EST PROTHROMBIN TIME-INR Routine 01/26/2025 12:00 PM EST CBC WITH AUTO DIFFERENTIAL Routine 01/26/2025 12:00 PM EST POCT MITCHELL-14 URINE DRUG SCREEN Routine 11/09/2024 3:27 PM EDT Chronic low back pain, unspecified back pain laterality, unspecified whether sciatica present HIV 1/2 ANTIGEN/ANTIBODY, FOURTH GENERATION W/RFL Routine 08/12/2024 1:59 PM EDT Healthcare maintenance Encounter for routine history and physical examination of adult LIPID PANEL, STANDARD Routine 08/12/2024 1:59 PM EDT Healthcare maintenance Encounter for routine history and physical examination of adult from Last 3 Months or Most Recently Relevant to Health Maintenance Results * US VENOUS DUPLEX LE RT (01/26/2025 12:55 PM EST) Anatomical Region Laterality Modality Abdomen Ultrasound 01/26/2025 12:5 5 PM EST Narrative 01/26/2025 1:25 PM EST [address] [address] Ultrasound Report Signed Patient: Manuel Grimm MR#: [id number] : 1960 Acct:[id number] Age/Sex: 64 / M ADM Date: 01/26/25 Loc: .ED Attending Dr: Ordering Physician: Miguel Ángel Rene Date of Service: 01/26/25 Procedure(s): US venous duplex LE RT Accession Number(s): [id number] cc: Miguel Ángel Rene; Marii Mcmillan MD Reason for Exam: Right lower extremity swelling EXAMINATION: US TRIPLEX LOWER EXTREMITY, RIGHT CLINICAL INFORMATION: Edema COMPARISON: None available. TECHNIQUE: Color-flow triplex imaging with spectral analysis and compression Doppler were performed on the right lower extremity. FINDINGS: Respiratory variation, normal compression and augmented flow are noted throughout the right lower extremity. The visualized common femoral vein, superficial femoral vein, profunda femoral vein, popliteal vein and midcalf peroneal and posterior tibial venous segments show no evidence of deep venous thrombosis. There is no Lopez's cyst. US/US venous duplex LE RT IMPRESSION: No evidence of deep venous thrombosis involving the right lower extremity. Electronically signed by: William Lau MD 01/26/2025 01:22 PM EST Dictated By: William Lau MD Signed By: <Electronically signed by William Lau MD in OV> 01/26/25 1322 DD/ 1255 TD/TT: 01/26/25 1305 [employer] Crewmember: Procedure Note Donotuseinterpreter, Image - 01/26/[address] [address] Ultrasound Report Signed Patient: Manuel Grimm DMR#: [id number] : 1Acct:[id number] Age/Sex: 64 / MADM Date: 01/26/25 Loc: HO.ED Attending Dr: Ordering Physician: Miguel Ángel Rene Date of Service: 01/26/25 Procedure(s): US venous duplex LE RT Accession Number(s): [id number] cc: Miguel Ángel Rene; Marii Mcmillan MD Reason for Exam: Right lower extremity swelling EXAMINATION: US TRIPLEX LOWER EXTREMITY, RIGHT CLINICAL INFORMATION: Edema COMPARISON: None available. TECHNIQUE: Color-flow triplex imaging with spectral analysis and compression Doppler were performed on the right lower extremity. FINDINGS: Respiratory variation, normal compression and augmented flow are noted throughout the right lower extremity. The visualized common femoral vein, superficial femoral vein, profunda femoral vein, popliteal vein and midcalf peroneal and posterior tibial venous segments show no evidence of deep venous thrombosis. There is no Lopez's cyst. US/US venous duplex LE RT IMPRESSION: No evidence of deep venous thrombosis involving the right lower extremity. Electronically signed by: Wliliam Lau MD 01/26/2025 01:22 PM EST Dictated By: William Lau MD Signed By: <Electronically signed by William Lau MD in OV> 01/26/25 1322 DD/ 1255 TD/TT: 01/26/25 1305 [employer] Crewmember: LEIGHA us [facility] External Provider IMG US PROCEDURES Final Result * XR Tibia Fibula 2 Views Right (01/26/2025 12:04 PM EST) Anatomical Region Laterality Modality Lower Extremities, Lower Leg Right Rad iographic Imaging 01/26/2025 12:0 4 PM EST Narrative 01/26/2025 12:15 PM EST [address] [place] [address] XRay Report Signed Patient: Manuel Grimm MR#: [id number] : 1960 Acct:[id number] Age/Sex: 64 / M ADM Date: 01/26/25 Loc: .ED Attending Dr: Ordering Physician: Miguel Ángel Rene Date of Service: 01/26/25 Procedure(s): XR tibia fibula RT 2V Accession Number(s): [id number] cc: Miguel Ángel Rene; Marii Mcmillan MD Reason for Exam: osteomyelitits? redness/swollen EXAMINATION: XR TIBIA AND FIBULA, RIGHT CLINICAL INFORMATION: osteomyelitits? redness/swollen COMPARISON: None available. TECHNIQUE: AP and lateral views of the right tibia and fibula were obtained. FINDINGS: No osteolysis. No lytic or blastic lesions. No periosteal bone reaction. No acute cortical disruption. No gross subcutaneous emphysema. XR/XR tibia fibula RT 2V IMPRESSION: Negative for osteomyelitis. Electronically signed by: Jose Alvarado MD 01/26/2025 12:13 PM [facility] Dictated By: Jose Myers MD Signed By: <Electronically signed by Jose Glaser MD in OV> 01/26/25 1213 DD/ 1204 TD/TT: 01/26/25 1209 [employer] Crewmember: Procedure Note Donotuseinterpreter, Image - 01/26/[address] [address] XRay Report Signed Patient: Manuel Grimm DMR#: [id number] : 1960cct:[id number] Age/Sex: 64 / MADM Date: 01/26/25 Loc: .ED Attending Dr: Ordering Physician: Miguel Ángel Rene Date of Service: 01/26/25 Procedure(s): XR tibia fibula RT 2V Accession Number(s): [id number] cc: Miguel Ángel Rene; Marii Mcmillan MD Reason for Exam: osteomyelitits? redness/swollen EXAMINATION: XR TIBIA AND FIBULA, RIGHT CLINICAL INFORMATION: osteomyelitits? redness/swollen COMPARISON: None available. TECHNIQUE: AP and lateral views of the right tibia and fibula were obtained. FINDINGS: No osteolysis. No lytic or blastic lesions. No periosteal bone reaction. No acute cortical disruption. No gross subcutaneous emphysema. XR/XR tibia fibula RT 2V IMPRESSION: Negative for osteomyelitis. Electronically signed by: Jose Alvarado MD 01/26/2025 12:13 PM EST RP Dictated By: Jose Myers MD Signed By: <Electronically signed by Jose Glaser MDin OV> 01/26/25 1213 DD/ 1204 TD/TT: 01/26/25 1209 [employer] Crewmember: [facility] External Provider IMG XR PROCEDURES Final Result * (ABNORMAL) CBC auto differential (01/26/2025 12:00 PM EST) White Blood Count 4.7(L) 4.8 - 10.8 X10*3/uL [facility] Red Blood Count 4.81 4.60 - 5.80 X10*6/uL [facility] Hemoglobin 14.7 14.0 - 18.0 g/dl [facility] Hematocrit 42.7 42.0 - 52.0 % [facility] Mean Corpuscular Volume 88.8 80.0 - 98.0 fL [facility] Mean Corpuscular Hemoglobin 30.6 27.0 - 33.0 pg [facility] Mean Corpuscular HGB Conc 34.4 31.0 - 36.0 g/dl [facility] Red Cell Distribution Width 12.9 11.0 - 16.0 % [facility] Platelet Count 124(L) 160 - 400 X10*3/uL [facility] Mean Platelet Volume 9.4 9.4 - 12.4 fL [facility] Neutrophils Percent Auto 48.1 45 - 73 % [facility] Imm Gran Pct Auto 0.2 0.0 - 0.4 % [facility] Lymphocytes Percent Auto 26.2 20 - 40 % [facility] Monocytes Percent Auto 16.1(H) 2 - 11 % [facility] Eosinophils Percent Auto 8.8(H) 0 - 4 % [facility] Basophils Percent Auto 0.6 0 - 2 % [facility] NRBC Pct Auto 0.0 0.0 - 0.2 /100WBC [facility] Neutrophils Absolute Auto 2.2 2.0 - 8.3 x10*3/uL [facility] Imm Gran Abs Auto 0.01 0.00 - 0.03 X10*3/uL [facility] Lymphocytes Absolute Auto 1.2 1.2 - 4.9 X10*3/uL [facility] Monocytes Absolute Auto 0.8 0.1 - 1.2 X10*3/uL [facility] Eosinophils Absolute Auto 0.4 0.0 - 0.4 X10*3/uL [facility] Basophils Absolute Auto 0.0 0.0 - 0.2 X10*3/uL [facility] NRBC Abs Auto 0.000 0.0 - 0.012 X10*3/uL [facility] 01/26/2025 12:0 0 PM EST 01/26/2025 12:02 PM EST us Generic External Data Provider LAB BLOOD ORDERAB LES Final Result Performing Organization Address [facility]/State/ZIP Co de Phone Number [facility] [address] [place] [phone] * Partial Thromboplastin Time, Activated (APTT) (01/26/2025 12:00 PM EST) Partial Thromboplastin Time 30.7 26.7 - 34.1 SEC [facility] 01/26/2025 12:0 0 PM EST 01/26/2025 12:02 PM EST Generic External Data Provider LAB BLOOD ORDERAB LES Final Result Performing Organization Address City/[facility] Co de Phone Number [facility] [address] [place] [phone] * Sed Rate by Modified Westergren (01/26/2025 12:00 PM EST) Erythrocyte Sedimentation Rate 5 0 - 15 MM/HR [facility] Comment:Patients with polycy themia and many hemoglobin abnormalitiesmay have depressed sed rates whereas patients with anemiamay have elevated sed rates. 01/26/2025 12:0 0 PM EST 01/26/2025 12:02 PM EST Generic External Data Provider LAB BLOOD ORDERAB LES Final Result Performing Organization Address [facility] Phone Number [facility] [address] [place] [phone] * Prothrombin Time-INR (01/26/2025 12:00 PM EST) Prothrombin Time 12.2 11.2 - 13.5 SEC [facility] INTERNATIONAL NORM RATIO 1.0 0.9 - 1.1 [facility] Comment:INTERNATIONAL NORMAL IZED RATIO (INR) REFERENCE RANGES Reference RangeFor patients not on anticoagulant therapy: 0.9 - 1.1INR ranges for oral anticoagulanttherapy:For prevention and treatment of venous thrombosis and pulmonary embolism: 2.0 - 3.0For acute myocardial infarction with aspirin therapy: 2.0 - 3.0For acute myocardial infarction without aspirin therapy: 3.0 - 4.0For patients with mechanical prosthetic heart valves: 2.5 - 3.5 01/26/2025 12:0 0 PM EST 01/26/2025 12:02 PM EST Generic External Data Provider LAB BLOOD ORDERAB LES Final Result Performing Organization Address [facility] Co de Phone Number [facility] [address] [place] [phone] * C-reactive Protein (01/26/2025 12:00 PM EST) Pathologist [facility] C Reactive Protein <0.04 < or = 0.50 mg/dL [facility] 01/26/2025 12:0 0 PM EST 01/26/2025 12:02 PM EST Generic External Data Provider LAB BLOOD ORDERAB LES Final Result Performing Organization Address [facility] Co de Phone Number [facility] [address] [place] [phone] * Creatine Kinase, Total (01/26/2025 12:00 PM EST) [facility] Creatine Kinase Total 66 38 - 174 U/L [facility] 01/26/2025 12:0 0 PM EST 01/26/2025 12:02 PM EST [employer] External Data Provider LAB BLOOD ORDERAB LES Final Result Performing Organization Address [facility] de Phone Number [facility] [address] [place] [phone] * (ABNORMAL) Comprehensive Metabolic Panel (01/26/2025 12:00 PM EST) [facility] Sodium 142 135 - 145 mmol/L [facility] Potassium 3.9 3.3 - 5.1 mmol/L [facility] Chloride 108 96 - 108 mmol/L [facility] Carbon Dioxide 27 22 - 29 mmol/L [facility] Anion Gap 11(L) 12 - 20 [facility] Urea Nitrogen (BUN) 22(H) 9 - 16 mg/dL [facility] Creatinine, Serum 0.78 0.5 - 1.4 mg/dL [facility] Creatinine Clr Calc Pharmacy 77.1 [facility] Comment:eGFR (calculated fro m the MDRD study equation) and eCrCl(calculated from the Cockcroft-Gault equation) are based ondifferent parameters and may not yield comparable results.If eCrCl result is absurd, please check patient'sheight/weight. Estimated Glomerular Filt Rate >60 [facility] Comment:Chronic Kidney Disea se: Estimated GFR < 60 mL/min/1.17k3Socjky Kidney Disease: Estimated GFR < 15 mL/min/1.73m2 Glucose 88 60 - 115 mg/dL [facility] Calcium 9.5 8.4 - 10.2 mg/dL [facility] Bilirubin, Total 0.8 0.0 - 1.0 mg/dL [facility] Aspartate Amino Transferase 73(H) 5 - 37 U/L [facility] Alanine Aminotransferase 29 0 - 40 U/L [facility] Total Protein 7.2 6.5 - 8.0 g/dL [facility] Albumin Level 4.5 3.5 - 5.0 g/dL [facility] Alkaline Phosphatase 56 39 - 117 U/L [facility] 01/26/2025 12:0 0 PM EST 01/26/2025 12:02 PM EST us Generic External Data Provider LAB BLOOD ORDERAB LES Final Result [facility] [address] [place] [phone] * (ABNORMAL) POCT MITCHELL-14 Urine Drug Screen [...] 3:27 PM EDT Internal Pass Control Lot# [id number] Exp: 01-13-26 us Marii Mcmillan MD POINT OF CARE TEST ENTER/EDIT ORDERABLES Final Result * HIV-1/2 Antigen and Antibodies, Fourth Generation, with Reflexes (08/12/2024 1:59 PM EDT) HIV AB/AG Nonreactive Nonreactive [facility] Comment:HIV-1 p24 Ag and/or HIV-1/HIV-2 Ab not detected.A test result that is nonreactive does not exclude thepossibility of exposure to or infection with HIV-1 and/orHIV-2. Nonreactive results in this assay for individualswith prior exposure to HIV-1 and/or HIV-2 may be due toantigen and antibody levels that are below the limit ofdetection of this assay.The [employer] HIV Ag/Ab Combo assay result andsupplemental assay results should be interpreted inconjunction with the patient's clinical presentation,history and other laboratory results. If the results areinconsistent with clinical evidence, additional testing issuggested to confirm the result. Blood Venous blood specimen / Unknown 08/12/2024 1:59 PM EDT 08/12/2024 1:59 PM EDT us Nita Steen MGMT CONSULTANT LAB BLOOD ORDERABLES Final Res ult [facility] [address], [place] [phone] * (ABNORMAL) Lipid Panel, Standard (08/12/2024 1:59 PM EDT) Triglycerides 61 <150 mg/dL [facility] Comment:Desirable Triglyceri de: less than 150 mg/dLBorderline High Triglyceride 150-199 mg/dLHigh Triglyceride: 200-499 mg/dLVery High Triglyceride: greater than or equal to 5OO mg/dL Cholesterol 107 <200 mg/dL [facility] Comment:Desirable Cholestero l: less than 200 mg/dLBorderline High Cholesterol: 200-239 mg/dLHigh Cholesterol: greater than 239 mg/dL LDL Cholesterol Calculated 58 <100 mg/dL [facility] Comment:Desirable LDL: less than 100 mg/dLNear Optimal/Above Optimal LDL: 110- 129 mg/dLBorderline High LDL: 130-159 mg/dLHigh LDL: 160-189 mg/dLVery High LDL: greater than or equal to 190 mg/dL HDL Cholesterol 37(L) >40 mg/dL [facility] Comment:Desirable HDL: great er than 40 mg/dL Note: This HDL assay may give artificially low results in patients with liver disease. Blood Venous blood specimen / Unknown 08/12/2024 1:59 PM EDT 08/12/2024 1:59 PM EDT Nita Steen MGMT CONSULTANT LAB BLOOD ORDERABLES Final Res ult [facility] [address] [place] [phone] from Last 3 Months or Most Recently Relevant to Health Maintenance Insurance [facility] [place] [id number] Advance Directives Documents on File Type Date Recorded Patient Endo Tech Expl anation Advance Directives and Livin g Will 08/26/2024 2:22 PM HCP Care Teams Procurement Manager Relationship Specialty Start Date End Date Marii Mcmillan MD [address] [place] [phone] PCP - General Family Medicine 07/11/21 Evelyne Green Scuba Diving InstructorAnode Crew Supervisor 12/09/23
--- OUTSIDE RECORDS SUMMARY | 2025-01-26 15:32 | XMS_ITS | Encounter Summary ---
Author Organization [employer] Address 75 [facility] 7t [place] [address] Care Team Providers Care Flaking Roll Operator Name Role Phone Marii Mcmillan MD Primary Care Provider Encounter Details Date Type Department Care Team (Late st Contact Info) Description 01/26/2025 Orders Only GENERIC EXTERNAL DATA [...] Encounters Date Type Department Care Team ([facility] st Contact Info) Description 01/30/2025 1:00 PM EST Telemedicine [facility] MED & PEDS [address] [place] [address] Leelee Castaneda, RN [address] [place] [address] 03/13/2025 10:30 AM EST Clinical Support [facility] MED & PED[facility] [address] [place] [address] documented as of this encounter Procedures Procedure Name Priority Date/Time Associated Diagnosis Comments US VENOUS DUPLEX LE RT Routine 12:55 PM EST XR TIBIA FIBULA 2 VIEWS RIGHT Routine 01/26/2025 12:04 PM EST CBC WITH AUTO DIFFERENTIAL Routine 01/26/2025 12:00 PM EST APTT Routine 01/26/2025 12:00 PM EST SED RATE BY MODIFIED WESTERGREN Routine 01/26/2025 12:00 PM EST PROTHROMBIN TIME-INR Routine 01/26/2025 12:00 PM EST C-REACTIVE PROTEIN Routine 01/26/2025 12 :00 PM EST CREATINE KINASE, TOTAL Routine 12:00 PM EST COMPREHENSIVE METABOLIC PANEL Routine 01/26/2025 12:00 PM EST documented in this encounter Results * US VENOUS DUPLEX LE RT (01/26/2025 12:55 PM EST) Anatomical Region Laterality Modality Abdomen Ultrasound 01/26/2025 12:5 5 PM EST Narrative 01/26/2025 1:25 PM EST [address] [address] Ultrasound Report Signed Patient: Manuel Grimm MR#: [id number] : 1960 Acct:[id number] Age/Sex: 64 / M ADM Date: 01/26/25 Loc: .ED Attending Dr: Ordering Physician: Miguel Ángel Rene Date of Service: 01/26/25 Procedure(s): US venous duplex LE RT Accession Number(s): [id number] cc: Miguel Ángel Rene; Marii Mcmillan MD [...] 01/26/25 1322 DD/ 1255 TD/TT: 01/26/25 1305 Mine Analyst: LEIGHA Procedure Note Donotuseinterpreter, Image - 01/26/[address] [address] Ultrasound Report Signed Patient: Manuel Grimm DMR#: [id number] : 1960cct:[id number] Age/Sex: 64 / MADM Date: 01/26/25 Loc: HO.ED Attending Dr: Ordering Physician: Miguel Ángel Rene Date of Service: 01/26/25 Procedure(s): US venous duplex LE RT Accession Number(s): [id number] cc: Miguel Ángel Rene; Marii Mcmillan MD [...] 01/26/25 1322 DD/ 1255 TD/TT: 01/26/25 1305 Mine Analyst: LEIGHA us [facility] External Provider IMG US PROCEDURES Final Result * XR Tibia Fibula 2 Views Right (01/26/2025 12:04 PM EST) Anatomical Region Laterality Modality Lower Extremities, Lower Leg Right Rad iographic Imaging 01/26/2025 12:0 4 PM EST Narrative 01/26/2025 12:15 PM EST [address] [address] XRay Report Signed Patient: Manuel Grimm MR#: [id number] : 1960 Acct:[id number] Age/Sex: 64 / M ADM Date: 01/26/25 Loc: HO.ED Attending Dr: Ordering Physician: Miguel Ángel Rene Date of Service: 01/26/25 Procedure(s): XR tibia fibula RT 2V Accession Number(s): [id number] cc: Miguel Ángel Rene; Marii Mcmillan MD [...] by: Jose Alvarado MD 01/26/2025 12:13 PM [facility] Dictated By: Jose Myers MD Signed By: <Electronically signed by Jose Glaser MD in OV> 01/26/25 1213 DD/ 1204 TD/TT: 01/26/25 1209 Mine Analyst: Procedure Note Donotuseinterpreter, Image - 01/26/[address] [address] XRay Report Signed Patient: Manuel Grimm DMR#: [id number] : 1960cct:[id number] Age/Sex: 64 / MADM Date: 01/26/25 Loc: HO.ED Attending Dr: Ordering Physician: Miguel Ángel Rene Date of Service: 01/26/25 Procedure(s): XR tibia fibula RT 2V Accession Number(s): [id number] cc: Miguel Ángel Rene; Marii Mcmillan MD [...] 01/26/25 1213 DD/ 1204 TD/TT: 01/26/25 1209 Mine Analyst: [facility] External Provider IMG XR PROCEDURES Final Result * Creatine Kinase, Total (01/26/2025 12:00 PM EST) Creatine Kinase Total 66 38 - 174 U/L [facility] 01/26/2025 12:0 0 PM EST 01/26/2025 12:02 PM EST Generic External Data Provider LAB BLOOD ORDERAB LES Final Result Performing Organization Address [facility] Co de Phone Number [facility] [address] [place] [phone] * Sed Rate by Modified Sebren (01/26/2025 12:00 PM EST) Erythrocyte Sedimentation Rate 5 0 - 15 MM/HR [facility] Comment:Patients with polycy themia and many hemoglobin abnormalitiesmay have depressed sed rates whereas patients with anemiamay have elevated sed rates. 01/26/2025 12:0 0 PM EST 01/26/2025 12:02 PM EST Generic External Data Provider LAB BLOOD ORDERAB LES Final Result Performing Organization Address [facility]/ZIP Co de Phone Number [facility] [address] [place] [phone] * C-reactive Protein (01/26/2025 12:00 PM EST) C Reactive Protein <0.04 < or = 0.50 mg/dL [facility] 01/26/2025 12:0 0 PM EST 01/26/2025 12:02 PM EST us Generic External Data Provider LAB BLOOD ORDERAB LES Final Result [facility] [address] [place] [phone] [phone] * (ABNORMAL) Comprehensive Metabolic Panel (01/26/2025 12:00 PM EST) Sodium 142 135 - 145 mmol/L [facility] Potassium 3.9 3.3 - 5.1 mmol/L [facility] Chloride 108 96 - 108 mmol/L [facility] Carbon Dioxide 27 22 - 29 mmol/L [facility] Anion Gap 11(L) 12 - 20 [facility] Urea Nitrogen (BUN) 22(H) 9 - 16 mg/dL [facility] Creatinine, Serum 0.78 0.5 - 1.4 mg/dL [facility] Creatinine Clr Calc Pharmacy 77.1 [facility] Comment:eGFR (calculated fro m the MDRD study equation) and eCrCl(calculated from the Cockcroft-Gault equation) are based ondifferent parameters and may not yield comparable results.If eCrCl result is absurd, please check patient'sheight/weight. Estimated Glomerular Filt Rate >60 [facility] Comment:Chronic Kidney Disea se: Estimated GFR < 60 mL/min/1.19d5Vlutzo Kidney Disease: Estimated GFR < 15 mL/min/1.73m2 Glucose 88 60 - 115 mg/dL [facility] Calcium 9.5 8.4 - 10.2 mg/dL [facility] Bilirubin, Total 0.8 0.0 - 1.0 mg/dL [facility] Aspartate Amino Transferase 73(H) 5 - 37 U/L [facility] Alanine Aminotransferase 29 0 - 40 U/L [facility] Total Protein 7.2 6.5 - 8.0 g/dL [facility] Albumin Level 4.5 3.5 - 5.0 g/dL [facility] Alkaline Phosphatase 56 39 - 117 U/L [facility] 01/26/2025 12:0 0 PM EST 01/26/2025 12:02 PM EST Generic External Data Provider LAB BLOOD ORDERAB LES Final Result Performing Organization Address [facility] Co de Phone Number [facility] [address] [place] [phone] * Partial Thromboplastin Time, Activated (APTT) (01/26/2025 12:00 PM EST) Partial Thromboplastin Time 30.7 26.7 - 34.1 SEC [facility] 01/26/2025 12:0 0 PM EST 01/26/2025 12:02 PM EST Generic External Data Provider LAB BLOOD ORDERAB LES Final Result Performing Organization Address [facility] Phone Number [facility] [address] [place] [phone] * Prothrombin Time-INR (01/26/2025 12:00 PM EST) Prothrombin Time 12.2 11.2 - 13.5 SEC [facility] INTERNATIONAL NORM RATIO 1.0 0.9 - 1.1 [facility] Comment:INTERNATIONAL NORMAL IZED RATIO (INR) REFERENCE [...] Provider LAB BLOOD ORDERAB LES Final Result [facility] [address] [place] [phone] * (ABNORMAL) CBC auto differential (01/26/2025 12:00 PM EST) White Blood Count 4.7(L) 4.8 - 10.8 X10*3/uL [facility] Red Blood Count 4.81 4.60 - 5.80 X10*6/uL [facility] Hemoglobin 14.7 14.0 - 18.0 g/dl [facility] Hematocrit 42.7 42.0 - 52.0 % [facility] Mean Corpuscular Volume 88.8 80.0 - 98.0 fL [facility] Mean Corpuscular Hemoglobin 30.6 27.0 - 33.0 pg [facility] Mean Corpuscular HGB Conc 34.4 31.0 - 36.0 g/dl [facility] Red Cell Distribution Width 12.9 11.0 - 16.0 % [facility] Platelet Count 124(L) 160 - 400 X10*3/uL [facility] Mean Platelet Volume 9.4 9.4 - 12.4 fL [facility] Neutrophils Percent Auto 48.1 45 - 73 % [facility] Imm Gran Pct Auto 0.2 0.0 - 0.4 % [facility] Lymphocytes Percent Auto 26.2 20 - 40 % [facility] Monocytes Percent Auto 16.1(H) 2 - 11 % [facility] Eosinophils Percent Auto 8.8(H) 0 - 4 % [facility] Basophils Percent Auto 0.6 0 - 2 % [facility] NRBC Pct Auto 0.0 0.0 - 0.2 /100WBC [facility] Neutrophils Absolute Auto 2.2 2.0 - 8.3 x10*3/uL [facility] Imm Gran Abs Auto 0.01 0.00 - 0.03 X10*3/uL [facility] Lymphocytes Absolute Auto 1.2 1.2 - 4.9 X10*3/uL [facility] Monocytes Absolute Auto 0.8 0.1 - 1.2 X10*3/uL [facility] Eosinophils Absolute Auto 0.4 0.0 - 0.4 X10*3/uL [facility] Basophils Absolute Auto 0.0 0.0 - 0.2 X10*3/uL [facility] NRBC Abs Auto 0.000 0.0 - 0.012 X10*3/uL [facility] 01/26/2025 12:0 0 PM EST 01/26/2025 12:02 PM EST us Generic External Data Provider LAB BLOOD ORDERAB LES Final Result [facility] [address] [place] [phone] [phone] documented in this encounter Visit Diagnoses Not on filedocumented in this encounter Additional Health Concerns Assessment Noted Time PHQ-9 Depression Total Score: 10 023 2:09 PM EST documented as of this encounter Care Teams Flaking Roll Operator Relationship Specialty Start Date End Date Marii Mcmillan MD [address] [place] [address] PCP - General Family Medicine 07/11/21 Evelyne Green Measurer MachineQuantity Surveyor 12/09/23 documented as of this encounter
--- OUTSIDE RECORDS SUMMARY | 2025-01-26 15:32 | XMS_ITS | Encounter Summary ---
Author Organization [employer] Address [address] [place] [address] 7t [place] [address] Care Team Providers Care Neurodiagnostic Technician Name Role Phone Marii Mcmillan MD Primary Care Provider [phone] Reason for Visit * Reason Comments Med Change Request Encounter Details Date Type Department Care Team ([facility] Contact Info) Description 05/27/2022 Refill [facility] CHC MED & PEDS [address] [place] [address] Marii Mcmillan MD [address] [place] [address] Takes dietary supplements Social History Tobacco Use [...] Upcoming Encounters Date Type Department Care Team ([facility] st Contact Info) Description 01/30/2025 1:00 PM EST Telemedicine [facility] MED & PEDS [address] [place] [address] Leelee Castaneda, RN [address] [place] [address] 03/13/2025 10:30 AM EST Clinical Support [facility] P[facility] [address] [place] [address] documented as of this encounter Visit Diagnoses Diagnosis Takes dietary supplements documented in this encounter Additional Health Concerns Assessment Noted Time PHQ-9 Depression Total Score: 10 023 2:09 PM EST documented as of this encounter Care Teams Neurodiagnostic Technician Relationship Specialty Start Date End Date Marii Mcmillan MD [address] [place] [address] PCP - General Family Medicine 07/11/21 Evelyne Green Brake Lining FinisherTrack And Field Coach 12/09/23 documented as of this encounter
--- OUTSIDE RECORDS SUMMARY | 2025-01-26 15:32 | XMS_ITS | Encounter Summary ---
Author Organization [employer] Address 75 [facility] 7t [place] [address] Care Team Providers Care Card Runner Name Role Phone Marii Mcmillan MD Primary Care Provider [phone] Reason for Visit * Reason Onset Date Comments Medication Question 01/18/2025 Encounter Details Date Type Department Care Team ([facility] Contact Info) Description 01/18/2025 Telephone [facility] CHC MED & PEDS [address] [place] [address] Marii Mcmillan MD [address] [place] [address] Medication Question Social History Tobacco Use Types Packs/Day Years [...] encounter Miscellaneous Notes * Telephone Encounter - Nadine Sierra - 01/26/2025 11:14 AM EST Tc from [facility] stated that we sent the wrong medication supposed to be oxyCODONE-acetaminophen (Percocet) 5-325 MG tablet but we sent oxyCODONE (Roxicodone) 5 MG pt stated doesn't work as much as the one that came with Tylenol. PCP Dr. Mcmillan * Telephone Encounter - Kitty Yanez - 01/18/2025 11:41 AM EST Tc from pt requesting to be put back on oxyCODONE-acetaminophen (Percocet) 5-325 MG tablet [[id number]] DISCONTINUED Contact pt at [phone] documented in this encounter Plan of Treatment Upcoming Encounters Date Type Department Care Team (Late st Contact Info) Description 01/30/2025 1:00 PM EST Telemedicine [facility] CHC MED & PEDS [address] [place] [address] Leelee Castaneda, RN [address] [place] [address] 03/13/2025 10:30 AM EST Clinical Support [facility] CHC MED & PEDS [address] [place] [address] documented as of this encounter Visit Diagnoses Diagnosis Right hip pain Pain in joint, pelvic region and thigh documented in this encounter Additional Health Concerns Assessment Noted Time PHQ-9 Depression Total Score: 10 023 2:09 PM EST documented as of this encounter Care Teams Card Runner Relationship Specialty Start Date End Date Marii Mcmillan MD [address] [place] [address] PCP - General Family Medicine 07/11/21 Evelyne Green BroommakerGraphics Artist 12/09/23 documented as of this encounter
--- OUTSIDE RECORDS SUMMARY | 2025-01-26 15:32 | XMS_ITS | Encounter Summary ---
Author Organization [employer] Address 75 [facility] 7t [place] [address] Care Team Providers Care Metallurgical Or Materials Technician Name Role Phone Marii Mcmillan MD Primary Care Provider [phone] Reason for Visit * Reason Onset Date Comments Prior Auth Prescription 01/25/2025 Encounter Details Date Type Department Care Team ([facility] st Contact Info) Description 01/25/2025 Telephone [facility] [address] [place] [address] Marii Mcmillan MD [address] [place] [address] Prior Auth Prescription Social History Tobacco Use Types Packs/Day Years [...] encounter Miscellaneous Notes * Telephone Encounter - Ann Baird LPN - 01/26/2025 10:38 AM EST NO PA REQUIRED Tc from pt needing an PA for oxyCODONE (Roxicodone) 5 MG immediate release tablet Contact pt at [phone] * Telephone Encounter - Manasa Ontiveros - 01/25/2025 9:39 AM EST Tc from pt needing an PA for oxyCODONE (Roxicodone) 5 MG immediate release tablet Contact pt at [phone] documented in this encounter Plan of Treatment Upcoming Encounters Date Type Department Care Team ([facility] st Contact Info) Description 01/30/2025 1:00 PM EST Telemedicine [facility] MED & PEDS [address] [place] [address] Leelee Castaneda, REGINA [address] [place] [address] 03/13/2025 10:30 AM EST Clinical Support [facility] MED & PEDS [address] [place] [address] documented as of this encounter Visit Diagnoses Not on filedocumented in this encounter Additional Health Concerns Assessment Noted Time PHQ-9 Depression Total Score: 10 023 2:09 PM EST documented as of this encounter Care Teams Metallurgical Or Materials Technician Relationship Specialty Start Date End Date Marii Mcmillan MD [address] [place] [address] PCP - General Family Medicine 07/11/21 Evelyne Green Dialysis Registered NurseLibrary Specialist 12/09/23 documented as of this encounter
--- OUTSIDE RECORDS SUMMARY | 2025-01-26 15:32 | XMS_ITS | Encounter Summary ---
Author Organization [employer] Address 75 [facility] 7t [place] [address] Care Team Providers Care Credit Representative Name Role Phone Marii Mcmillan MD Primary Care Provider [phone] Reason for Visit * Reason Comments Med Change Request Encounter Details Date Type Department Care Team ([facility] Contact Info) Description 01/25/2025 Refill [facility] MED & PEDS [address] [place] [address] Nita Steen FNP [address] [place] [address] Social History Tobacco Use Types Packs/Day Years [...] Telephone Encounter - Marii Mcmillan MD - 01/26/2025 2:59 PM EST Noted, he can add APAP to regimen and then next time please switch to percocet. * Telephone Encounter - Leelee Castaneda RN - 01/26/2025 11:35 AM EST Please see message from pt and advise: Tc from [facility] stated that we sent the wrong medication supposed to be oxyCODONE-acetaminophen (Percocet) 5-325 MG tablet but we sent oxyCODONE (Roxicodone) 5MG pt stated doesn't work as much as the one that came with Tylenol. On 11/28/24 pt requested refill of plain oxycodone and received a refill of Oxycodone 5mg after thaton 12/28. Please advise. documented in this encounter Plan of Treatment Upcoming Encounters Date Type Department Care Team (Late st Contact Info) Description 01/30/2025 1:00 PM EST Telemedicine [facility] MED & PEDS [address] [place] [address] Leelee Castaneda RN [address] [place] [address] 03/13/2025 10:30 AM EST Clinical Support [facility] CHC MED & PEDS [address] [place] [address] documented as of this encounter Visit Diagnoses Not on filedocumented in this encounter Additional Health Concerns Assessment Noted Time PHQ-9 Depression Total Score: 10 023 2:09 PM EST documented as of this encounter Care Teams Credit Representative Relationship Specialty Start Date End Date Marii Mcmillan MD [address] [place] [address] PCP - General Family Medicine 07/11/21 Evelyne Green Search LeadFlatwork Assembler 12/09/23 documented as of this encounter
--- OUTSIDE RECORDS SUMMARY | 2025-01-26 15:32 | XMS_ITS | Encounter Summary ---
Author Organization [employer] Address [address] [place] [address] 7 [place] [address] Care Team Providers Care Die Developer Name Role Phone Marii Mcmillan MD Primary Care Provider [phone] Reason for Visit * Reason Onset Date Comments Referral 05/20/2022 Encounter Details Date Type Department Care Team ([facility] Contact Info) Description 05/20/2022 Telephone [facility] CHC MED & PEDS [address] [place] [address] Marii Mcmillan MD [address] [place] [address] Referral Social History Tobacco Use Types Packs/Day [...] 05/23/2022 2:09 PM Marii Marmolejo MD * How difficult have these problems made it for you to do your work, take care of things at home, or get along with other people? Answer Date of Assessment Author Somewhat difficult 05/23/2022 2:09 PM Marii Marmolejo [...] made on 02/04/2022. Please contact pt at [phone] documented in this encounter Plan of Treatment Upcoming Encounters Date Type Department Care Team ([facility] st Contact Info) Description 01/30/2025 1:00 PM EST Telemedicine [facility] MED & PEDS [address] [place] [address] Leelee Castaneda, RN [address] [place] [address] 03/13/2025 10:30 AM EST Clinical Support [facility] MED & PEDS [address] [place] [address] documented as of this encounter Visit Diagnoses Not on filedocumented in this encounter Care Teams Die Developer Relationship Specialty Start Date End Date Marii Mcmillan MD [address] [place] [address] PCP - General Family Medicine 07/11/21 Evelyne Green Site MonitorSupervisor Aircraft Maintenance 12/09/23 documented as of this encounter
--- OUTSIDE RECORDS SUMMARY | 2025-01-26 15:32 | XMS_ITS | Encounter Summary ---
Author Organization [employer] Address [address] [place] [address] [address]t [place] [address] Care Team Providers Care Sanitary Landfill Supervisor Name Role Phone Marii Mcmillan MD Primary Care Provider [phone] Reason for Visit * Reason Comments Med Refill Encounter Details Date Type Department Care Team (Late Contact Info) Description 04/08/2022 Refill [facility] MED & PEDS [address] [place] [address] Marii Mcmillan MD [address] [place] [address] Vitamin deficiency, unspecified Social History Tobacco Use [...] Info) Description 01/30/2025 1:00 PM EST Telemedicine [facility] MED & PEDS [address] [place] [address] Leelee Castaneda RN [address] [place] [address] 03/13/2025 10:30 AM EST Clinical Support [facility] CHC MED & PEDS [address] [place] [address] documented as of this encounter Visit Diagnoses Diagnosis Vitamin deficiency, unspecified documented in this encounter Care Teams Sanitary Landfill Supervisor Relationship Specialty Start Date End Date Marii Mcmillan MD [address] [place] [address] PCP - General Family Medicine 07/11/21 Evelyne Green Leather CrafterMine Shifter 12/09/23 documented as of this encounter
--- OUTSIDE RECORDS SUMMARY | 2025-01-26 15:33 | XMS_ITS | Encounter Summary ---
Author Organization [employer] Address 75 [facility] 7t [place] [address] Care Team Providers Care Shot Core Drill Operator Helper Name Role Phone Marii Mcmillan MD Primary Care Provider [phone] Encounter Details Date Type Department Care Team ([facility] Contact Info) Description 06/22/2023 Telephone [facility] MEDICINE [address] [place] [address] Marii Mcmillan MD [address] [place], [place] [phone] Social History Tobacco Use Types Packs/Day Years [...] EST Telemedicine [facility] MED & PEDS [address] [place] [address] Leelee Castaneda RN [address] [place] [address] 03/13/2025 10:30 AM EST Clinical Support [facility] MED & PEDS [address] [place] [address] documented as of this encounter Visit Diagnoses Not on filedocumented in this encounter Additional Health Concerns Assessment Noted Time PHQ-9 Depression Total Score: 10 023 2:09 PM EST documented as of this encounter Care Teams Shot Core Drill Operator Helper Relationship Specialty Start Date End Date Marii Mcmillan MD [address] [place] [address] PCP - General Family Medicine 07/11/21 Evelyne Green Ear Nose And Throat SpecialistConditioning Coach 12/09/23 documented as of this encounter
--- OUTSIDE RECORDS SUMMARY | 2025-01-26 15:33 | XMS_ITS | Encounter Summary ---
Author Organization [employer] Address [address] [facility] 7t [place] [address] Care Team Providers Care Administration Professional Name Role Phone Marii Mcmillan MD Primary Care Provider [phone] Reason for Visit * Reason Onset Date Comments Appointment Request 08/15/2024 Encounter Details Date Type Department Care Team ([facility] Contact Info) Description 08/15/2024 Telephone [facility] MEDICINE [address] [place] [address] Marii Mcmillan MD [address] [place], [place] [id number] Appointment Request Social History Tobacco Use Types [...] EDT Tc from pt requesting to reschedule SWEEPER DRIVER visit. Please contact pt at [phone]. documented in this encounter Plan of Treatment Upcoming Encounters Date Type Department Care Team (Late st Contact Info) Description 01/30/2025 1:00 PM EST Telemedicine [facility] MED & PEDS [address] [place] [address] Leelee Castaneda, RN [address] [place] [address] 03/13/2025 10:30 AM EST Clinical Support [facility] MED & PEDS [address] [place] [address] documented as of this encounter Visit Diagnoses Not on filedocumented in this encounter Additional Health Concerns Assessment Noted Time PHQ-9 Depression Total Score: 10 023 2:09 PM EST documented as of this encounter Care Teams Administration Professional Relationship Specialty Start Date End Date Marii Mcmillan MD [address] [place] [address] PCP - General Family Medicine 07/11/21 Evelyne Green Hook TenderForms Designer 12/09/23 documented as of this encounter
--- OUTSIDE RECORDS SUMMARY | 2025-01-26 15:33 | XMS_ITS | Encounter Summary ---
Author Organization [employer] Address [address] [facility] 7t [place] [address] Care Team Providers Care Pizza Cook Name Role Phone Marii Mcmillan MD Primary Care Provider [phone] Reason for Visit * Reason Onset Date Comments PT1 05/15/2023 Encounter Details Date Type Department Care Team ([facility] st Contact Info) Description 05/15/2023 Telephone [facility] MEDICINE [address] [place] [address] Marii Mcmillan MD [address] [place], [place] [phone] PT1 Social History Tobacco Use Types Packs/Day [...] visits) ( x monthly, weekly, daily) Address: [address] [place] [address] Facility[facility] Wheel Chair: NO Demolition Expert Needed: NO Address and phone confirmed by Evelyne CHAWLA documented in this encounter Plan of Treatment Upcoming Encounters Date Type Department Care Team ([facility] st Contact Info) Description 01/30/2025 1:00 PM EST Telemedicine [facility] MED & PEDS [address] [place] [address] Leelee Castaneda, REGINA [address] [place] [address] 03/13/2025 10:30 AM EST Clinical Support [facility] MED & PEDS [address] [place] [address] documented as of this encounter Visit Diagnoses Not on filedocumented in this encounter Additional Health Concerns Assessment Noted Time PHQ-9 Depression Total Score: 10 023 2:09 PM EST documented as of this encounter Care Teams Pizza Cook Relationship Specialty Start Date End Date Marii Mcmillan MD [address] [place] [address] PCP - General Family Medicine 07/11/21 Evelyne Green Digital DirectorGas Plant Worker 12/09/23 documented as of this encounter
--- OUTSIDE RECORDS SUMMARY | 2025-01-26 15:33 | XMS_ITS | Encounter Summary ---
Author Organization [employer] Address [address] [facility] 7t [place] [address] Care Team Providers Care Automobile Damage Field Appraiser Name Role Phone Marii Mcmillan MD Primary Care Provider [phone] Reason for Visit * Reason Onset Date Comments Med Refill 06/27/2024 Encounter Details Date Type Department Care Team ([facility] st Contact Info) Description 06/27/2024 Telephone [facility] [address] [place] [address] Marii Mcmillan MD [address] [place] [address] Med Refill Social History Tobacco Use Types [...] 5-325 MG tablet To be sent to: [facility]/pharmacy #[id number] MARY CARIAS - [address] [facility] documented in this encounter Plan of Treatment Upcoming Encounters Date Type Department Care Team ([facility] st Contact Info) Description 01/30/2025 1:00 PM EST Telemedicine [facility] MED & PEDS [address] [place] [address] Leelee Castaneda RN [address] [place] [address] 03/13/2025 10:30 AM EST Clinical Support [facility] MED & PEDS [address] [place] [address] documented as of this encounter Visit Diagnoses Not on filedocumented in this encounter Additional Health Concerns Assessment Noted Time PHQ-9 Depression Total Score: 10 023 2:09 PM EST documented as of this encounter Care Teams Automobile Damage Field Appraiser Relationship Specialty Start Date End Date Marii Mcmillan MD [address] [place] [address] PCP - General Family Medicine 07/11/21 Evelyne Green Laboratory CuremanConcession Attendant 12/09/23 documented as of this encounter
--- OUTSIDE RECORDS SUMMARY | 2025-01-26 15:33 | XMS_ITS | Encounter Summary ---
Author Organization [employer] Address [address] [place] [address] 7t [place] [address] Care Team Providers Care Service Order Dispatcher Name Role Phone Marii Mcmillan MD Primary Care Provider [phone] Reason for Visit * Reason Comments Med Change Request Encounter Details Date Type Department Care Team ([facility] Contact Info) Description 05/29/2022 Refill [facility] MED & PEDS [address] [place] [address] Marii Mcmillan MD [address] [place] [address] Takes dietary supplements Social History Tobacco Use [...] Upcoming Encounters Date Type Department Care Team ([facility] st Contact Info) Description 01/30/2025 1:00 PM EST Telemedicine [facility] MED & PEDS [address] [place] [address] Leelee Castaneda, RN [address] [place] [address] 03/13/2025 10:30 AM EST Clinical Support [facility] MED & PEDS [address] [place] [address] documented as of this encounter Visit Diagnoses Diagnosis Takes dietary supplements documented in this encounter Additional Health Concerns Assessment Noted Time PHQ-9 Depression Total Score: 10 023 2:09 PM EST documented as of this encounter Care Teams Service Order Dispatcher Relationship Specialty Start Date End Date Marii Mcmillan MD [address] [place] [address] PCP - General Family Medicine 07/11/21 Evelyne Green Co Founder And Chief Strategy OfficerGum Machine Operator 12/09/23 documented as of this encounter
--- OUTSIDE RECORDS SUMMARY | 2025-01-26 15:33 | XMS_ITS | Encounter Summary ---
Author Organization [employer] Address [address] [facility] 7t [place] [address] Care Team Providers Care Spring Coiler Hand Name Role Phone Marii Mcmillan MD Primary Care Provider [phone] Reason for Visit * Reason Onset Date Comments Appointment Request 04/22/2023 Encounter Details Date Type Department Care Team ([facility] Contact Info) Description 04/22/2023 Telephone [facility] CHC MED & PEDS [address] [place] [address] Marii Mcmillan MD [address] [place] [address] Appointment Request Social History Tobacco Use Types [...] was scheduled for SDC apt today in [facility] but, due to car not starting Pt [...] fever. Pt is offered to come to [facility] today or tomorrow morning but, Pt would rather come to [facility]. Pt is advised to call back tomorrow [...] (Car wont Start) Please contact pt @ [phone] documented in this encounter Plan of Treatment Upcoming Encounters Date Type Department Care Team (Late st Contact Info) Description 01/30/2025 1:00 PM EST Telemedicine [facility] MED & PEDS [address] [place] [address] Leelee Castaneda RN [address] [place] [address] 03/13/2025 10:30 AM EST Clinical Support [facility] MED & PEDS [address] [place] [address] documented as of this encounter Visit Diagnoses Not on filedocumented in this encounter Additional Health Concerns Assessment Noted Time PHQ-9 Depression Total Score: 10 023 2:09 PM EST documented as of this encounter Care Teams Spring Coiler Hand Relationship Specialty Start Date End Date Marii Mcmillan MD [address] [place] [address] PCP - General Family Medicine 07/11/21 Evelyne Green Graphotype OperatorClinical Care Leader 12/09/23 documented as of this encounter
--- OUTSIDE RECORDS SUMMARY | 2025-01-26 15:33 | XMS_ITS | Patient Health Record ---
Author Organization [facility] Address [address] [place] [address] Care Team Providers Care Global Chief Creative Officer Name Role Phone Iman CAGLE, Maryjo Primary Care Provider Angel Mathew Jr Unavailable [phone] Allergies Allergen (clinical drug ingredient) Drug/Non [...] W/U Status Risk Notes Problem Alcoholic cirrhosis (797805787) Alcoholic cirrhosis of liver without ascites (K70.30) Active confirmed Plan Of Treatment No Information Insurance Providers Payer Name Payer Address Payer Phone Subscriber Number Group Number Insured Name Patient Relationship to Insured Coverage Start Date Coverage End Date [employer] [address] [address] [place], [place] [id number] LISA DYWER Self - patient is the insured Medical (General) History Medical History History ICD Code left bundle-branch block tuberculosis glaucoma anxiety/depression/mood disorder with pa ranoia cirrhosis substance abuse, and in remission asthma disc disease Surgical History Surgery Date(Month/Year) eye surgery ear surgery cholecystectomy hernia repair
--- OUTSIDE RECORDS SUMMARY | 2025-01-26 15:33 | XMS_ITS | Encounter Summary ---
Author Organization [employer] Address [address] [place] [address] 7 [place] [address] Care Team Providers Care Pumpman Name Role Phone Marii Mcmillan MD Primary Care Provider [phone] Reason for Referral * Imaging (STAT) - Closed Specialty Diagnoses / Procedures Referred By Contac t Referred To Contact Radiology Diagnoses Mass of right inguinal region Procedures Us Pelvis complete Gildardo Huertas MD [address] [place] [address] Phone: tel: fax: [address] Phone: tel: fax: Referral ID Status Reason Start Date Expiration Date Visits Re quested Visits Authorized [id number] Closed 09/18/2022 09/18/2023 1 1 Encounter Details Date Type Department Care Team (Late st Contact Info) Description 09/18/2022 Orders Only [facility] CH[facility] MED & PEDS [address] [place] [address] Gildardo Huertas MD [address] [place] [address] Mass of right inguinal region (Primary Dx) [...] [facility] [address] [place] [address] Leelee Castaneda, RN [address] [place] [address] 03/13/2025 10:30 AM EST Clinical Support [facility] MED & PEDS [address] [place] [address] Scheduled Orders Name Type Priority Associated Diagnoses [...] PM EDT Narrative 09/25/2022 10:43 AM EDT [address] [address] Ultrasound Report Signed Patient: Manuel Grimm MR#: [id number] : 1960 Acct:[id number] Age/Sex: 62 / M ADM Date: 09/18/22 Loc: HO.US Attending Dr: Marii Mcmillan MD Ordering Physician: Marii Mcmillan MD Date of Service: 09/18/22 Procedure(s): US pelvic limited Accession Number(s): [id number] cc: Marii Mcmillan MD EXAMINATION: US RIGHT [...] OV> 09/25/22 1039 DD/ 1503 TD/TT: Director Instrumentation: Procedure Note Donotuseinterpreter, Image - 09/25/2022 [place] [address] Ultrasound Report Signed Patient: Manuel Grimm DMR#: [id number] : 1Acct:[id number] Age/Sex: 62 / MADM Date: 09/18/22 Loc: HO.US Attending Dr: Marii Mcmillan MD Ordering Physician: Marii Mcmillan MD Date of Service: 09/18/22 Procedure(s): US pelvic limited Accession Number(s): [id number] cc: Marii Mcmillan MD EXAMINATION: US RIGHT [...] OV> 09/25/22 1039 DD/ 1503 TD/TT: Director Instrumentation: [facility] External Provider IMG US PROCEDURES Final Result documented in this encounter Visit Diagnoses Diagnosis Mass of right inguinal region- Primary documented in this encounter Additional Health Concerns Assessment Noted Time PHQ-9 Depression Total Score: 10 023 2:09 PM EST documented as of this encounter Care Teams Pumpman Relationship Specialty Start Date End Date Marii Mcmillan MD [address] [place] [address] PCP - General Family Medicine 07/11/21 Evelyne Green Curtain DrierIt Lead 12/09/23 documented as of this encounter
--- OUTSIDE RECORDS SUMMARY | 2025-01-26 15:33 | XMS_ITS | Encounter Summary ---
Author Organization [employer] Address [address] [facility] 7t [place] [address] Care Team Providers Care Credit Compliance Officer Name Role Phone Marii Mcmillan MD Primary Care Provider [phone] Reason for Visit * Reason Onset Date Comments Med Refill 08/25/2024 Encounter Details Date Type Department Care Team ([facility] st Contact Info) Description 08/25/2024 Telephone [facility] MEDICINE [address] [place] [address] Marii Mcmillan MD [address] [place] [address] Med Refill Social History Tobacco Use Types [...] 5-325 MG tablet To be sent to: [facility]/pharmacy #[id number] MARY CARIAS - [address] [facility] documented in this encounter Plan of Treatment Upcoming Encounters Date Type Department Care Team ([facility] st Contact Info) Description 01/30/2025 1:00 PM EST Telemedicine [facility] MED & PEDS [address] [place] [address] Leelee Castaneda RN [address] [place] [address] 03/13/2025 10:30 AM EST Clinical Support [facility] MED & PEDS [address] [place] [address] documented as of this encounter Visit Diagnoses Not on filedocumented in this encounter Additional Health Concerns Assessment Noted Time PHQ-9 Depression Total Score: 10 023 2:09 PM EST documented as of this encounter Care Teams Credit Compliance Officer Relationship Specialty Start Date End Date Marii Mcmillan MD [address] [place] [address] PCP - General Family Medicine 07/11/21 Evelyne Green Mailroom ClerkEngine Cowling Installer 12/09/23 documented as of this encounter
--- OUTSIDE RECORDS SUMMARY | 2025-01-26 15:33 | XMS_ITS | Data Portability ---
Author Organization MD - [facility], Allergy Address [address] [place] [address] Care Team Providers Care Concrete Engineer Name Role Phone PAULINA EPSTEIN Primary Care Provider Assessment Encounter Date Assessment Date Assessment LastModified by Organization Details LastModified Time 10/21/2024 10/21/2024 64 year old male, with a history of right canal wall down mastoidectomy, presents for reevaluation of right fungal otitis externa. Residual Lotrisone and otorrhea was removed from the right mastoid cavity using suction. Patient tolerated the procedure well. No evidence of recurrent cholesteatoma or infection. Further use of topical medication is not necessary at this time. Dry ear precautions were reiterated. Otherwise, he will follow up with Dr. Roca in 3 months for routine mastoid debridement. All questions were answered. [email or web address] Not available 10/21/2024 15:57:09 12/26/2024 12/26/2024 The right canal wall down mastoidectomy cavity was cleaned out today of residual squamous debris. Mild moisture, but no signs of infection. No need for drops or additional medication at the moment. I did recommend strict dry ear precautions. He is having a hard time with the cottonball/Vasel ine recommendations, so we will see if getting him a Doc's Pro Plug for the right ear will help him keep the ear dry in the shower. Follow-up for next debridement in 6 months. [email or web address] Not available 12/26/2024 11:23:45 Plan of Treatment Reminders Order Date Submit Date Provider Last Modified By Organization Details Last Modified Time Details Appointments Establish ed 10 2025 11:00Ella ROCA MD Not available Not available Not available Lab None recorded. Referral None recorded. Procedures None recorded. Surgeries None recorded. Imaging None recorded. Medication Orders None recorded. Patient TargetsNo targets recorded. Patient InstructionsNo instructions recorded. Reason for Referral None Reported. Problems Name Problem SNOMED Code Status Onset Date Resolution Date Notes Provider Name and Address Organization Details Recorded Time Chronic mastoidi tis 79176018 Active 2013 Chronic mastoidi tis; Location : right CM S Risk: low risk CMS Treatmen t: establis hed problem (to examiner ): unstable or worsenin g Condit ion: unstable Note: Date Diagnose d: 4 3:25 PM (383.1) Not Available [facility] 4 02:24:10 Impacted cerumen 83044236 Active 2014 Impacted cerumen; Note: Date Diagnose d: 5 2:25 PM (380.4) Not Available [facility] 4 02:23:45 Chronic right mastoidi tis 94518376517 54355 Active 2015 Chronic mastoidi tis, right ear; Note: Date Diagnose d: 6 11:16 AM (H70.11) Not Available [facility] 4 02:24:01 Impacted cerumen in left ear 73294212643 91069 Active 2015 Impacted cerumen, left ear; Note: Date Diagnose d: 6 11:10 AM (H61.22) Not Available [facility] 4 02:23:56 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; Note: Date Diagnose d: 6 11:09 AM (383.33) Not Available [facility] 4 02:24:16 Granulat ions of mastoid cavity 834387223 Completed 201510/16/2023 Granulat ion of postmast oidectom y cavity, right ear; Note: Date Diagnose d: 6 11:16 AM (H95.121 ) Not Available [facility] 4 02:23:25 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 21185787860 87676 Active 2022 Total perforat ions of tympanic membrane , right ear; Note: Date Diagnose d: 3 10:38 AM (H72.821 ) SAI ROCA MD [address] [facility],[place] [address], [place], [phone] , [place] - [facility] 5 16:26:46 Postmast oidectom y complica tion 00313971 Active 2022 Other disorder s followin g mastoide ctomy, right ear; Note: Date Diagnose d: 3 10:33 AM (H95.191 ) SAI ROCA MD [address] [facility],[place] [address], [place], [address] , [facility] - [facility] 5 11:22:57 Bilatera l temporom andibula r joint pain 34158268203 186389 Active 2023 Arthralg ia of bilatera l temporom andibula r joint; Note: Date Diagnose d: 06/16/2023 11:02 AM (M26.623 ) SAI ROCA MD [address] [facility],[place] [address], [place], [address] , [facility] - [facility] 5 11:24:03 Neck pain 89180099 Active 2023 Cervical chelsie; Note: Date Diagnose d: 06/16/2023 11:02 AM (M54.2) Not Available [facility] 4 02:24:04 Chronic neck pain 03117392500 07 Active 2023 Loren bean [place] - [facility] 4 13:58:40 Candidal otitis externa 90587996 Active 2024 SAI ROCA MD [address] [place] [address],[place] [address], [place], [address] , [place] - [facility] 5 16:26:46 Problem Notes None recorded. Procedures Surgical History Date Name Laterality Status Provider Name and Address Organization Details Recorded Time 5 Debridement of Mastoid Cavity right completed SAI ROCA MD [address] [facility],[address], [address], [facility] - [facility] 12/26/2024 11:17:39 5 Debridement of Mastoid Cavity right completed FAISAL SALAS [facility] [place],[address], [address], [facility] - [facility] 10/21/2024 15:56:26 5 Debridement of Mastoid Cavity complex right completed SAI ROCA MD [address] [facility],[address], [address], [facility] - [facility] 10/04/2024 12:02:08 5 Debridement of Mastoid Cavity right completed SAI ROCA MD [address] [facility],[address], [address], [facility] - [facility] 06/01/2024 21:11:43 Imaging Results None recorded. Procedure Notes None recorded. Medical Equipment None Reported. Allergies Allergen ID Allergen Name Allergen Category Reaction Reaction Severity Criticality Documentation Date Start Date Code Code System Note Provider Name and Address Organization Details Recorded Time 768857 adhesive tape environme nt,medica tion Not available Not available Not available 05/31/2024 Cecelia bean [facility] 5 10:17:08 23613 Non-stero idal anti-infl ammatory agent (substanc e) medicatio n other Not available Not available 07/28/2023 64112 5008 SNOMED React ion: Unkno wn; Not Available [facility] 4 00:53:26 80482 Penicilli n Not available other Not available Not available 07/28/2023 36235 RxNorm React ion: Unkno wn; Not Available [facility] 4 00:53:42 Medications Name Sig Start Date Stop Date Status Note LastModified by Organization Details LastModified Time multivita min tablet active Medicati on ID: 151578 B rand Name: multivit eldridge Sen d Method: E-Prescr ibed Sub s Allowed: subs OK Speci al Instruct ion: TAKE ONE TABLET DAILY Me dication GenericN reinier: multivit eldridge Not Available Not Available Not Available Galzin 50 mg (zinc) capsule TAKE 1 CAPSULE BY MOUTH EVERY DAY 12/26 completed Not Available Not Available Not Available atorvasta tin 40 mg tablet TAKE 1 TABLET BY MOUTH EVERY DAY IN THE MORNING active Not Available Not Available No t Available doxycycli ne hyclate 100 mg capsule TAKE 1 CAPSULE BY MOUTH EVERY 12 HOURS FOR 7 DAYS 12/26 completed Not Available Not Available Not Available benztropi ne 0.5 mg tablet 05/06 [...] DM Not Available Not Available Not Available ondansetr on HCl 8 mg tablet TAKE 1 TABLET BY MOUTH THREE TIMES A DAY FOR 3 DAYS 12/26 completed Not Available Not Available Not Available clonazepa [...] 1 TABLET BY MOUTH EVERY 6 HOURS NEEDED FOR SEVERE PAIN FOR UP TO 28 DAYS 12/26 completed Not Available Not Available Not Available ofloxacin 0.3 % ear drops Apply 5 drop into right ear twice a day 06/02 completed Medicati on ID: 971299 D uration Value: 10 Brand Name: ofloxaci [...] Not Available Not Available No t Available capsaicin 0.025 % topical cream APPLY TOPICALL Y 3 TIMES PER DAY FOR 7 DAYS DO NOT WASH AREA FOR AT LEAST 30 MIN AFTER APPLICAT ION 10/04 completed Not Available Not Available Not Available gabapenti n 100 mg capsule TAKE 1-2 CAPSULES (100-200 MG) BY MOUTH AT BEDTIME. 12/26 completed Not Available Not Available Not Available lorazepam 1 mg tablet TAKE 1 TAB (1 MG) ORALLY ONCE FOR ANXIETY TAKE 30 MINUTES PRIOR TO ARRIVAL TO PROCEDUR E 06/02 completed Not Available Not Available Not Available olanzapin e 20 mg tablet 10/18 completed Medicati on ID: 2335 Dur ation Value: 30 Brand Name: olanzapi ne Send Method: E-Prescr ibed [...] alc) Not Available Not Available Not Available oxycodone 5 mg tablet TAKE 1 TABLET (5 MG) BY MOUTH EVERY 6 (SIX) HOURS IF NEEDED FOR SEVERE PAIN FOR UP TO 28 DAYS. active Not Available Not Available No t Available TobraDex 0.3 %-0.1 % eye drops,snow [...] as directed 06/02 completed Medicati on ID: 078933 D uration Value: 10 Brand Name: Ciprodex [...] vitamin K 06/02 completed Medicati on ID: 216174 B rand Name: vitamin k Send Method: [...] Updated DateTime 10/04/2024 167.64 cm 21 kg/m2 50034.01 g SONIA CASTRO MD - [facility] 10/04/2024 11:42:53 Date Recorded Body height Body mass index (BMI) Body weight Provider Name and Address Organization Details Last Updated DateTime 10/21/2024 165.1 cm 21 kg/m2 42691.64 g Maggy Telles [facility] 10/21/2024 13:32:03 Date Recorded Body height Body mass index (BMI) Body weight Provider Name and Address Organization Details Last Updated DateTime 12/26/2024 165.1 cm 21.1 kg/m2 74314.23 g Cecelia Owen [facility] 12/26/2024 11:03:26 Social History Question Answer Notes LastModified by Organizat ion Details LastModified Time Tobacco Smoking Status Former Smoker SAI ROCA MD [address] [place] [address], [address], [facility] - [facility] 10/28/2023 19:37:28 When Did You Quit Smoking? 6-10yearssin celastcigare tte Information not available 10/28/2023 How Many Years Have You Smoked Tobacco? 45 [email or web address] Information not available 10/28/2023 Sex: Unknown Functional Status Question Answer Note LastModified by Organization D etails LastModified Time What is your level of alcohol consumption? None [email or web address] Information not available 10/28/2023 Mental Status None recorded. Family History Nothing Reported. Medical History Condition Response Anxiety Y Glaucoma Y Depression Y Asthma Y Past Encounters Encounter ID Performer Location Encounter Start Date Encounter Closed Date Diagnosis/Indication Diagnosis SNOMED-CT Code Diagnosis ICD10 Code Diagnosis IMO Codes Diagnosis Note [id number] SAI ROCA MD [facility] [address] [address] 06/02/2024 13:15:22 06/02/2024 13:58:49 Postmastoidectomy complication 79943667 H95.191 Right canal wall down mastoidect [place] cavity was debrided today under the binocular microscope . No signs of acute or chronic inflammati on. Patient will follow-up in 12 months for next debridemen t Total perf oration of right tympanic membrane 7899510848 392630 H72.821 Chronic neck pain 848188 1356 107 M54.2 Patient's previously noted neck pain has resolved. Physical exam of the neck is normal. No need to proceed with CAT scan. [id number] SAI ROCA MD [facility] [address] [address] 10/04/2024 11:27:11 10/04/2024 11:57:36 Postmastoidectomy complication 92996924 H95.191 Right canal wall down mastoidect [place] [...] Total perf oration of right tympanic membrane 9575039265 833405 H72.821 Candidal o titis externa 91082311 B37.84 [id number] FAISAL SALAS [facility] [address] [address] 10/21/2024 13:23:09 10/21/2024 14:08:41 Postmastoidectomy complication 21097116 H95.191 Total perf oration of right tympanic membrane 3009509204 271199 H72.821 Candidal o titis externa 32118222 B37.84 Resolved. [id number] SAI ROCA MD [facility] [address] [address] 12/26/2024 10:52:48 12/26/2024 16:44:34 Postmastoidectomy complication 89872827 H95.191 Total perf oration of right tympanic membrane 0873503125 813956 H72.821 Bilateral temporomandibular joint pain 1052047270 5373821 M26.623 Today I reaffirmed the fact that his periauricu lar discomfort is coming from the TMJ rather than from the ear itself. He is aware of his chronic TMJ issues as a source for discomfort in this area. Health Concerns Section Related Observation LastModified by Organization Detai ls LastModified Time None Recorded Concern Status LastModified by Organization Details LastModified Time None Recorded Advance Directives Directive None Recorded Payers Insurance Date Sequence Insurance Name Policy Number Policy Gatica Covered Member ID Gatica Member ID Guarantor Name 10/04/2024 1 MED[place]ID-[place]: [facility] Manuel Grimm [id number] Manuel Grimm 12/23/2024 1 [place] - [facility] (MEDICAID) Manuel Grimm [id number] Manuel Grimm Notes Date Note Type Note [...] known diagnosis of TMJD. SAI ROCA MD [address] [facility],[address], [address], [facility] - [facility] 06/02/2024 13:58:47 10/04/2024 text/html Patient with history of right canal wall down mastoidectomy cavity comes in today for mastoid debridement. Last cleaning in May 2024. At that visit I recommended 1 year follow-up. He comes back at 4 months for reevaluation. Patient reports that he has been having drainage and itchiness and irritation for a few weeks now. SAI ROCA MD [address] [facility],[address], [address], [facility] - [facility] 10/04/2024 12:02:42 10/21/2024 text/html ROS as noted in the HPI 64 year old male, with a history of right canal wall down mastoidectomy, presents for reevaluation of right fungal otitis externa. Patient reports significant improvement in terms of itchiness, but continues to endorse mild ear pain and an occasional wet sensation. No recurrent drainage since the last visit. MITZI LARRY MD [address] [facility],[address], [address], [facility] - [facility] 10/21/2024 17:43:47 12/26/2024 text/html Patient with history of right canal wall down mastoidectomy cavity comes in today for mastoid debridement. Treated over the summer for fungal mastoid bowl infection with lotrisone cream application, confirmed resolved in October. Patient denies discharge currently. He has some periauricular discomfort. He has long-term issues with TMJ SAI ROCA MD [address] [place] [address], [place], [address], [facility] - [facility] 12/26/2024 11:24:30
--- OUTSIDE RECORDS SUMMARY | 2025-01-26 15:33 | XMS_ITS | Encounter Summary ---
Author Organization [employer] Address [address] [facility] [address] [place] [address] Care Team Providers Care Encapsulator Name Role Phone Marii Mcmillan MD Primary Care Provider [phone] Reason for Visit * Reason Onset Date Comments Referral 03/12/2023 Encounter Details Date Type Department Care Team ([facility] Contact Info) Description 03/12/2023 Telephone [facility] [address] [place] [address] Marii Mcmillan MD [address] [place] [address] Referral Social History Tobacco Use Types Packs/Day [...] 03/12/2023 4:18 PM EST Referral re-faxed to [facility] gastro. * Telephone Encounter - Brooke Corral - 03/12/2023 1:49 PM EST Tc from [facility] office of [facility] gastroenterology has not received referral. documented in this encounter Plan of Treatment Upcoming Encounters Date Type Department Care Team ([facility] st Contact Info) Description 01/30/2025 1:00 PM EST Telemedicine [facility] [address] [place] [address] Leelee Castaneda RN [address] [place] [address] 03/13/2025 10:30 AM EST Clinical Support [facility] [address] [place] [address] documented as of this encounter Visit Diagnoses Not on filedocumented in this encounter Additional Health Concerns Assessment Noted Time PHQ-9 Depression Total Score: 10 023 2:09 PM EST documented as of this encounter Care Teams Encapsulator Relationship Specialty Start Date End Date Marii Mcmillan MD [address] [place] [address] PCP - General Family Medicine 07/11/21 Evelyne Green Logistics AdministratorCondenser Tester 12/09/23 documented as of this encounter
--- OUTSIDE RECORDS SUMMARY | 2025-01-26 15:33 | XMS_ITS | Encounter Summary ---
Author Organization [employer] Address [address] [facility] [address] [place] [address] Care Team Providers Care Humane Officer Name Role Phone Marii Mcmillan MD Primary Care Provider [phone] Reason for Visit * Reason Onset Date Comments Med Refill 01/28/2024 Encounter Details Date Type Department Care Team ([facility] st Contact Info) Description 01/28/2024 Telephone [facility] [address] [place] [address] Marii Mcmillan MD [address] [place] [address] Med Refill Social History Tobacco Use Types [...] 5-325 MG tablet To be sent to: [facility]/pharmacy #[id number] MARY CARIAS - [address] documented in this encounter Plan of Treatment Upcoming Encounters Date Type Department Care Team ([facility] st Contact Info) Description 01/30/2025 1:00 PM EST Telemedicine [facility] [address] [place] [address] Leelee Castaneda, RN [address] [place] [address] 03/13/2025 10:30 AM EST Clinical Support [facility] [address] [place] [address] documented as of this encounter Visit Diagnoses Not on filedocumented in this encounter Additional Health Concerns Assessment Noted Time PHQ-9 Depression Total Score: 10 023 2:09 PM EST documented as of this encounter Care Teams Humane Officer Relationship Specialty Start Date End Date Marii Mcmillan MD [address] [place] [address] PCP - General Family Medicine 07/11/21 Evelyne Green Keg VarnisherManager Of Investigations 12/09/23 documented as of this encounter
--- OUTSIDE RECORDS SUMMARY | 2025-01-26 15:33 | XMS_ITS | Continuity of Care Document ---
Author Organization [place] - [facility], [facility] Address [address] [place] [address] Care Team Providers Care Stull Hewer Name Role Phone EPSTEIN, PAULINA Primary Care Provider Assessment Encounter Date Assessment Date Assessment LastModified by Organization Details LastModified Time 12/26/2024 12/26/2024 The right canal wall down [...] Follow-up for next debridement in 6 months. [email or web address] Not available 12/26/2024 11:23:45 Plan of Treatment Reminders Order Date Submit Date Provider Last Modified By Organization Details Last Modified Time Details Appointments Establish ed 10 2025 11:00A M SAI ROCA MD Not available Not available Not available Lab None recorded. Referral None recorded. Procedures None recorded. Surgeries None recorded. Imaging None recorded. Medication Orders None recorded. Patient TargetsNo targets recorded. Patient InstructionsNo instructions recorded. Reason for Referral None Reported. Problems Name Problem SNOMED Code Status Onset Date Resolution Date Notes Provider Name and Address Organization Details Recorded Time Chronic mastoidi tis 96805055 Active 2013 Chronic mastoidi tis; Location : right CM S Risk: low risk CMS Treatmen t: establis hed problem (to examiner ): unstable or worsenin g Condit ion: unstable Note: Date Diagnose d: 4 3:25 PM (383.1) Not Available [facility] 4 02:24:10 Impacted cerumen 80820818 Active 2014 Impacted cerumen; Note: Date Diagnose d: 5 2:25 PM (380.4) Not Available [facility] 4 02:23:45 Chronic right mastoidi tis 38131347914 Active 2015 Chronic mastoidi tis, right ear; Note: Date Diagnose d: 6 11:16 AM (H70.11) Not Available [facility] 4 02:24:01 Impacted cerumen in left ear 11691171502 Active 2015 Impacted cerumen, left ear; Note: Date Diagnose d: 6 11:10 AM (H61.22) Not Available [facility] 4 02:23:56 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; Note: Date Diagnose d: 6 11:09 AM (383.33) Not Available [facility] 4 02:24:16 Granulat ions of mastoid cavity 001122377 Completed 201510/16/2023 Granulat ion of postmast oidectom y cavity, right ear; Note: Date Diagnose d: 6 11:16 AM (H95.121 ) Not Available Count includes the [facility] 4 02:23:25 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 68505821971 28603 Active 2022 Total perforat ions of tympanic membrane , right ear; Note: Date Diagnose d: 3 10:38 AM (H72.821 ) SAI ROCA MD [address] [place] [address], [place], [address] , [facility] - [facility] 5 16:26:46 Postmast oidectom y complica tion 58151114 Active 2022 Other disorder s followin g mastoide ctomy, right ear; Note: Date Diagnose d: 3 10:33 AM (H95.191 ) SAI ROCA MD [address] [facility],[place] [address], [place], [address] , [facility] - [facility] 5 11:22:57 Bilatera l temporom andibula r joint pain 14438010591 667490 Active 2023 Arthralg ia of bilatera l temporom andibula r joint; Note: Date Diagnose d: 06/16/2023 11:02 AM (M26.623 ) SAI ROCA MD [address] [facility],[place] [address], [place], [address] , [place] - [facility] 5 11:24:03 Neck pain 82811860 Active 2023 Cervical chelsie; Note: Date Diagnose d: 06/16/2023 11:02 AM (M54.2) Not Available [facility] 4 02:24:04 Chronic neck pain 48032755718 07 Active 2023 Loren bean [place] - [facility] 4 13:58:40 Candidal otitis externa 56058301 Active 2024 SAI ROCA MD [address] [facility],[place] [address], [place], [address] , [place] - [facility] 5 16:26:46 Problem Notes None recorded. Procedures Surgical History Date Name Laterality Status Provider Name and Address Organization Details Recorded Time 5 Debridement of Mastoid Cavity right completed SAI ROCA MD [address] [facility],NISA [facility], [place], [address], [place] - [facility] 12/26/2024 11:17:39 5 Debridement of Mastoid Cavity right completed FAISAL SALAS [address],[place] [facility], [place], [address], [place] [facility] 10/21/2024 15:56:26 5 Debridement of Mastoid Cavity complex right completed SAI ROCA MD [address] [facility],[place] [address], [place], [address], [facility] - [facility] 10/04/2024 12:02:08 5 Debridement of Mastoid Cavity right completed SAI ROCA MD [address] [facility],[place] [address], [place], [address], [facility] - [facility] 06/01/2024 21:11:43 Imaging Results None recorded. Procedure Notes None recorded. Medical Equipment None Reported. Allergies Allergen ID Allergen Name Allergen Category Reaction Reaction Severity Criticality Documentation Date Start Date Code Code System Note Provider Name and Address Organization Details Recorded Time 074509 adhesive tape environme nt,medica tion Not available Not available Not available 05/31/2024 Cecelia bean [facility] 5 10:17:08 78747 Non-stero idal anti-infl ammatory agent (substanc e) medicatio n other Not available Not available 07/28/2023 37611 5008 SNOMED React ion: Unkno wn; Not Available Count includes the [facility] 4 00:53:26 55192 Penicilli n Not available other Not available Not available 07/28/2023 53818 RxNorm React ion: Unkno wn; Not Available Count includes the [facility] 4 00:53:42 Medications Name Sig Start Date Stop Date Status Note LastModified by Organization Details LastModified Time multivita min tablet active Medicati on ID: 910956 B rand Name: multivit eldridge Sen d [...] mg tablet 10/18 completed Medicati on ID: 232 Bra nd Name: loperami de Send Method: [...] a day 06/02 completed Medicati on ID: 977777 D uration Value: 10 Brand Name: ofloxaci [...] TAKE 30 MINUTES PRIOR TO ARRIVAL TO [facility] 06/02 completed Not Available Not Available Not [...] as directed 06/02 completed Medicati on ID: 061465 D uration Value: 10 Brand Name: Ciprodex [...] vitamin K 06/02 completed Medicati on ID: 538316 B rand Name: vitamin k Send Method: [...] Updated DateTime 12/26/2024 165.1 cm 21.1 kg/m2 85294.23 g Cecelia Owen [place] - [facility] 12/26/2024 11:03:26 Social History Question Answer Notes LastModified by Organizat ion Details LastModified Time Tobacco Smoking Status Former Smoker SAI ROCA MD [address] [place] [address], [phone], [facility] - [facility] 10/28/2023 19:37:28 When Did You Quit Smoking? 6-10yearssin celastcigare tte [email or web address] Information not available 10/28/2023 How Many Years Have You Smoked Tobacco? 45 Information not available 10/28/2023 Sex: Unknown Functional Status Question Answer Note LastModified by Organization D etails LastModified Time What is your level of alcohol consumption? None Information not available 10/28/2023 Mental Status None recorded. Family History Nothing Reported. Medical History Condition Response Anxiety Y Depression Y Glaucoma Y Asthma Y Past Encounters Encounter ID Performer Location Encounter Start Date Encounter Closed Date Diagnosis/Indication Diagnosis SNOMED-CT Code Diagnosis ICD10 Code Diagnosis IMO Codes Diagnosis Note [id number] SAI ROCA MD [facility] [address] [address] 12/26/2024 10:52:48 12/26/2024 16:44:34 Postmastoidectomy complication 04245915 H95.191 Total perf oration of right tympanic membrane 9898907155 600636 H72.821 Bilateral temporomandibular joint pain 8449360728 3548999 M26.623 Today I reaffirmed the fact that his periauricu lar discomfort is coming from the TMJ rather than from the ear itself. He is aware of his chronic TMJ issues as a source for discomfort in this area. Health Concerns Section Related Observation LastModified by Organization Detai ls LastModified Time None Recorded Concern Status LastModified by Organization Details LastModified Time None Recorded Payers Encounter Date Sequence Insurance Name Policy Number Policy Gatica Covered Member ID Gatica Member ID Guarantor Name 12/26/2024 1 [place] [employer] (MEDICAID) Manuel Grimm [id number] Manuel Grimm Notes Date Note Type Note Provider Name and Address Organization Details Recorded Time 12/26/2024 text/html Patient with history of right canal wall down mastoidectomy cavity comes in today for mastoid debridement. Treated over the summer for fungal mastoid bowl infection with lotrisone cream application, confirmed resolved in October. Patient denies discharge currently. He has some periauricular discomfort. He has long-term issues with TMJ SAI ROCA MD [address] [place] [address], [place], [address], [place] [facility] 12/26/2024 11:24:30
--- OUTSIDE RECORDS SUMMARY | 2025-01-26 15:33 | XMS_ITS | Encounter Summary ---
Author Organization [employer] Address [address] [facility] [address] [place] [address] Care Team Providers Care Head Automatic Sawyer Name Role Phone Marii Mcmillan MD Primary Care Provider [phone] Reason for Visit * Reason Onset Date Comments Appointment Request 01/11/2024 Encounter Details Date Type Department Care Team ([facility] Contact Info) Description 01/11/2024 Telephone [facility] [address] [place] [address] Marii Mcmillan MD [address] [place], [place] [id number] Appointment Request Social History Tobacco Use Types [...] from pt calling in regards to tomorrows [employer] visit stating he is feeling sick and is wondering ifhe can change appt to a telephone visit. Please contact pt at [phone]. documented in this encounter Plan of Treatment Upcoming Encounters Date Type Department Care Team (Late st Contact Info) Description 01/30/2025 1:00 PM EST Telemedicine [facility] [address] [place] [address] Leelee Castaneda, REGINA [address] [place] [address] 03/13/2025 10:30 AM EST Clinical Support [facility] [address] [place] [address] documented as of this encounter Visit Diagnoses Not on filedocumented in this encounter Additional Health Concerns Assessment Noted Time PHQ-9 Depression Total Score: 10 023 2:09 PM EST documented as of this encounter Care Teams Head Automatic Sawyer Relationship Specialty Start Date End Date Marii Mcmillan MD [address] [place] [address] PCP - General Family Medicine 07/11/21 Evelyne Green Marine Cargo InspectorInternational Marketing Manager 12/09/23 documented as of this encounter
--- OUTSIDE RECORDS SUMMARY | 2025-01-26 15:33 | XMS_ITS | Encounter Summary ---
Author Organization [employer] Address [address] [facility] [address] [place] [address] Care Team Providers Care Film Or Videotape Editor Name Role Phone Marii Mcmillan MD Primary Care Provider [phone] Encounter Details Date Type Department Care Team ([facility] Contact Info) Description 08/18/2024 Orders Only [facility] [address] [place], [place] [phone] Nita Steen FNP [address] [place] [address] Social History Tobacco Use Types Packs/Day Years [...] Upcoming Encounters Date Type Department Care Team ([facility] st Contact Info) Description 01/30/2025 1:00 PM EST Telemedicine [facility] [address] [place] [address] Leelee Castaneda RN [address] [place] [address] 03/13/2025 10:30 AM EST Clinical Support [facility] [address] [place] [address] documented as of this encounter Visit Diagnoses Not on filedocumented in this encounter Additional Health Concerns Assessment Noted Time PHQ-9 Depression Total Score: 10 023 2:09 PM EST documented as of this encounter Care Teams Film Or Videotape Editor Relationship Specialty Start Date End Date Marii Mcmillan MD [address] [place] [address] PCP - General Family Medicine 07/11/21 Evelyne Green Emt/ParamedicTableau Administrator 12/09/23 documented as of this encounter
--- OUTSIDE RECORDS SUMMARY | 2025-01-26 15:33 | XMS_ITS | Encounter Summary ---
Author Organization [employer] Address [address] [facility] [address] [place] [address] Care Team Providers Care Loop Tender Name Role Phone Marii Mcmillan MD Primary Care Provider [phone] Reason for Visit * Reason Onset Date Comments CHART PREP 01/26/2024 Encounter Details Date Type Department Care Team ([facility] Contact Info) Description 01/26/2024 Telephone [facility] [address] [place] [address] Marii Mcmillan MD [address] [place] [address] CHART PREP Social History Tobacco Use Types [...] 01/30/2025 1:00 PM EST Telemedicine [facility] [address] [place] [address] Leelee Castaneda, RN [address] [place] [address] 03/13/2025 10:30 AM EST Clinical Support [facility] [address] [place] [address] documented as of this encounter Visit Diagnoses Diagnosis Polyarthralgia Pain in joint, multiple sites documented in this encounter Additional Health Concerns Assessment Noted Time PHQ-9 Depression Total Score: 10 023 2:09 PM EST documented as of this encounter Care Teams Loop Tender Relationship Specialty Start Date End Date Marii Mcmillan MD [address] [place] [address] PCP - General Family Medicine 07/11/21 Evelyne Green Welder AssemblerVeneer Sample Maker 12/09/23 documented as of this encounter
--- OUTSIDE RECORDS SUMMARY | 2025-01-26 15:33 | XMS_ITS | Encounter Summary ---
Author Organization [employer] Address [address] [facility] [address] [place] [address] Care Team Providers Care Cloth Finishing Range Tender Name Role Phone Marii Mcmillan MD Primary Care Provider [phone] Reason for Visit * Reason Onset Date Comments Med Change Request 11/04/2023 Encounter Details Date Type Department Care Team ([facility] st Contact Info) Description 11/04/[address] [facility] MEDICINE [address] [place] [address] Marii Mcmillan MD [address] [place] [address] Med Change Request Social History Tobacco Use [...] 01/30/2025 1:00 PM EST Telemedicine [facility] [address] [place] [address] Leelee Castaneda RN [address] [place] [address] 03/13/2025 10:30 AM EST Clinical Support [facility] [address] [place] [address] documented as of this encounter Visit Diagnoses Not on filedocumented in this encounter Additional Health Concerns Assessment Noted Time PHQ-9 Depression Total Score: 10 023 2:09 PM EST documented as of this encounter Care Teams Cloth Finishing Range Tender Relationship Specialty Start Date End Date Marii Mcmillan MD [address] [place] [address] PCP - General Family Medicine 07/11/21 Evelyne Green Curator HerbariumGold Leaf Laborer 12/09/23 documented as of this encounter
[2025-01-26 17:13] VITALS: BP 114/74; PULSE 79; RESP 18; TEMP 36.4; O2SAT 96
[2025-01-26 18:10] VITALS: BP 121/76; PULSE 76; RESP 20; TEMP 36.7; O2SAT 96
[2025-01-26] MEDS: iohexoL 350 MG/ML 100 ML INFUS..BTL IV (18:20)
[2025-01-26 19:35] VITALS: BP 126/77; PULSE 80; RESP 14; TEMP 36.8; O2SAT 99
== END 2025-01-26 19:35 | disposition home or self-care (01) ==
PROVIDERS: Physician Assistant; Emergency Provider Emergency Medicine; PCP Family Medicine
DX: M79.604 Pain in right leg (principal); R51.9 Headache, unspecified; R60.0 Localized edema; R21 Rash and other nonspecific skin eruption; R10.22 Pelvic and perineal pain left side; Z79.899 Other long term (current) drug therapy
CPT/HCPCS: 36415; 73590; 74177; 80053; 82550; 85025; 85610; 85652; 85730; 86140; 93971; 99284; Q9967

== ENCOUNTER → 2025-01-26 11:48 | Outpatient (BNV) | payer MEDICAID, SELFPAY | PROVIDERS: PCP Family Medicine; Visit Provider Radiology Diagnostic Radiology | DX: R10.31 Right lower quadrant pain (principal); R22.31 Localized swelling, mass and lump, right upper limb; M79.89 Other specified soft tissue disorders; R21 Rash and other nonspecific skin eruption | CPT/HCPCS: 73590; 74177; 93971 ==

== ENCOUNTER 2025-02-03 16:00 | Outpatient (REF) | payer MEDICAID, SELFPAY ==
--- OUTSIDE RECORDS SUMMARY | 2025-01-30 13:00 | XMS_ITS | Encounter Summary ---
Author Organization [employer] Address [address] [place] [address] 7t [place] [address] Care Team Providers Care Exhibit Cleaner Name Role Phone Marii Mcmillan MD Primary Care Provider [phone] Carmen Baird Unavailable Reason for Visit * Reason Comments FOREST SUPERVISOR Encounter Details Date Type Department Care Team ([facility] Contact Info) Description 01/30/2025 1:00 PM EST Telemedicine [facility] MED & PEDS [address] [place] [address] Leelee Castaneda, RN [address] [place] [address] Chronic low back pain, unspecified back pain laterality, unspecified whether sciatica present Social History Tobacco Use Types Packs/Day Years [...] AM EDT documented as of this encounter Progress Notes * Leelee Castaneda RN - 01/30/2025 1:00 PM EST SUBJECTIVE: Manuel Grimm is a 64 y.o. year old male who presents for FOREST SUPERVISOR Preferred language for medical information: Moldovan Interpreted needed: No Manuel Grimm does report adherence to Oxycodone 5 mg, take 1 tablet every 6 hours PRN, last refilled 01/27/25. The patient last took Oxycodone on: 01/30/25 Medication is: 40% % effective at alleviating pain. OBJECTIVE: LEGAL COMPLIANCE OFFICER checked: 01/30/2025 Pill count completed for Oxycodone , count today is 105 , anticipated count should be 98, this is as expected. Vital Signs Pain Score: 7 Pain Loc: Leg Pain Education: Yes Last PCP visit: 10/21/24 BPI completed on: 11/09/2024 , pain severity score: 6, activity interference score: 7 BPI completed on: 09/30/23 , pain severity score: 6, activity interference score: 6 Controlled substance agreement signed: Controlled Substance Agreement 11/09/2024 FOREST SUPERVISOR Tier: 2 Current Medications[1] Smoking status: Denies ETOH use: Yes . Occasional ETOH use, pt educated of the risks associated with the combination of ETOH and opioids, verbalized understanding. Illicit substances: Denies Marijuana use: Denies, Lab Results Component Value Date POCTHC Positive (A) 11/09/2024 POCCOCAINEUR Negative 11/09/2024 POCOPIATEUR Negative 11/09/2024 DOAUR Negative 11/09/2024 POCAMPHETAMI Negative 11/09/2024 POCBENZODIUR Negative 11/09/2024 POCBARBSCRN Negative 11/09/2024 POCMETHADOUR Negative 11/09/2024 POCBUPSCRN Negative 11/09/2024 POCTCAUR Negative 11/09/2024 POCMDMAUR Negative 11/09/2024 POCOXYCODONE Positive (A) 11/09/2024 POCPHENCYCUR Negative 11/09/2024 PROPOXUR Negative 11/09/2024 FENTANYLURIN Negative 11/09/2024 ASSESSMENT: No diagnosis found. PLAN: Information on pain group given: Previously discussed Information on acupuncture given: Previously discussed Narcan education provided: Previously discussed Narcan prescription: active Manuel Grimm will continue taking medication as prescribed and follow up at the next [facility] visit or sooner if needed. Manuel Grimm has verbalized understanding of care plan. Future Appointments Date Time Provider Department Center 02/03/2025 2:15 PM Marii Mcmillan MD [facility] 03/13/2025 10:30 AM [facility] NURSE [facility] 04/19/2025 2:15 PM Leelee Castaneda RN [facility] Leelee Castaneda RN [1] Current Outpatient Medications: acetaminophen (Tylenol) 325 MG tablet, Take 1 tablet (325 mg) by mouth every 6 (six) hours if needed for mild pain for up to 28 days., Disp: 112 tablet, Rfl: 0 ascorbic acid (Vitamin C) 500 MG tablet, Take 2 tablets by mouth Once per day., Disp: , Rfl: atorvastatin (Lipitor) 40 MG tablet, TAKE 1 TABLET BY MOUTH EVERY DAY IN THE MORNING, Disp: 90 tablet, Rfl: 4 Blood Pressure kit, Use by on arm route 1-2 times every day, Disp: , Rfl: cholecalciferol (Vitamin D-3) 50 MCG (1999 UT) capsule, Take 50 mcg by mouth Once per day., Disp: ,Rfl: Ciprodex otic suspension, INSTILL 4 DROP INTO RIGHT EAR TWICE A DAY DIRECTED X 10 DAYS, Disp: , Rfl: Diclofenac Sodium 1 % gel, apply 2 gram by topical route 4 times every day to the affected area(s),Disp: , Rfl: dorzolamide-timolol (Cosopt) 22.3-6.8 MG/ML ophthalmic solution, INSTILL 1 DROP INTO RIGHT EYE EVERY 12 HOURS, Disp: , Rfl: gabapentin (Neurontin) 100 MG capsule, Take 1 capsule (100 mg) by mouth at bedtime., Disp: 90 capsule, Rfl: 1 Galzin 50 MG capsule, Take 1 capsule by mouth Once per day., Disp: , Rfl: hydroCHLOROthiazide 12.5 MG tablet, TAKE 1 TABLET BY MOUTH EVERY DAY IN THE MORNING (12.5 MG), Disp: 90 tablet, Rfl: 4 Lotemax 0.5 % ophthalmic suspension, INSTILL 1 DROP IN BOTH EYES TWICE A DAY FOR 3 WEEKS THEN DISCONTINUE, Disp: , Rfl: Menaquinone-7 (Vitamin K2) 100 MCG capsule, Take 1 tablet by mouth in the morning., Disp: 90 capsule, Rfl: 4 Multiple Vitamin (Multivitamin) tablet, TAKE 1 TABLET BY MOUTH EVERY DAY IN THE MORNING, Disp: 90 tablet, Rfl: 4 naloxone (Narcan) 4 mg/0.1 mL nasal spray, Administer 1 spray (4 mg) into affected nostril(s) if needed for opioid reversal. May repeat every 2-3 minutes if needed, alternating nostrils, until medical assistance becomes available., Disp: 2 each, Rfl: 2 ofloxacin (Floxin) 0.3 % otic solution, INSTILL 5 DROPS INTO RIGHT EAR TWICE A DAY FOR 10 DAYS, Disp: , Rfl: oxyCODONE (Roxicodone) 5 MG immediate release tablet, Take 1 tablet (5 mg) by mouth every 6 (six) hours if needed for severe pain for up to 28 days. Do not start before January 24, 2025., Disp: 112 tablet, Rfl: 0 potassium citrate CR (Urocit-K-10) 10 mEq ER tablet, TAKE 1 TABLET BY MOUTH EVERY DAY, Disp: 90 tablet, Rfl: 1 tamsulosin (Flomax) 0.4 MG 24 hr capsule, TAKE 1 CAPSULE BY MOUTH EVERY DAY IN THE MORNING, Disp: 90 capsule, Rfl: 1 triamcinolone (Kenalog) 0.5 % ointment, APPLY TOPICALLY 2 TIMES DAILY TO AFFECTED AREA, Disp: 15 g,Rfl: 0 documented in this encounter Plan of Treatment Upcoming Encounters Date Type Department Care Team (Late st Contact Info) Description 02/07/2025 11:30 AM EST Office Visit [facility] MED & PEDS [address] [place] [address] Gildardo Huertas MD [address] [place] [address] 03/13/2025 10:30 AM EST Clinical Support [facility] [address] [place] [address] 04/19/2025 2:15 PM EST Clinical Support [facility] MED [facility] P[facility] [address] [place] [address] Leelee Castaneda RN [address] [place] [address] documented as of this encounter Visit Diagnoses Diagnosis Chronic low back pain, unspecified back pain laterality, unspecified whether sciatica present documented in this encounter Additional Health Concerns Assessment Noted Time PHQ-9 Depression Total Score: 10 023 2:09 PM EST documented as of this encounter Care Teams Exhibit Cleaner Relationship Specialty Start Date End Date Marii Mcmillan MD [address] [place] [id number] PCP - General Family Medicine 07/11/21 Carmen Baird 01/27/25 Evelyne Green Automobile Damage Field AppraiserHead Butler 12/09/23 documented as of this encounter
--- OUTSIDE RECORDS SUMMARY | 2025-02-03 14:15 | XMS_ITS | Encounter Summary ---
Author Organization [employer] Address [address] [place] [address] [address] [place] [address] Care Team Providers Care Product Design Engineer Name Role Phone Marii Mcmillan MD Primary Care Provider [phone] Carmen Baird Unavailable Reason for Referral * Consultation (Routine) - Pending Review Specialty Diagnoses / Procedures Referred By Justino palma Referred To Contact Vascular Surgery Diagnoses Localized swelling of right lower extremity Marii Mcmillan MD [address] [place] [address] Phone: tel: fax: Referral ID Status Reason Start Date Expiration Date Visits Requested Visits Authorized [id number] Pending Review Specialty Services Required 5 02/03/2026 1 1 * Imaging (Routine) - Pending Review Specialty Diagnoses / Procedures Referred By Justino palma Referred To Contact Cardiology Diagnoses Localized swelling of right lower extremity Procedures Vascular US lower extremity arterial duplex bilateral with MEI Marii Mcmillan MD [address] [place] [address] Phone: tel: fax: [address] [address] Phone: tel: fax: Referral ID Status Reason Start Date Expiration Date Visits Requested Visits Authorized [id number] Pending Review Perform Procedure 5 02/03/2026 1 1 Encounter Details Date Type Department Care Team (Latest Contact Info) Description 02/03/2025 2:15 PM EST Office Visit [facility] CH[facility] MED & PEDS [address] [place] [address] Marii Mcmillan MD [address] [place] [address] Localized swelling of right lower extremity (Primary Dx); Hyperlipidemia, unspecified hyperlipidemia type Social History Tobacco Use Types Packs/Day [...] Sign Reading Time Taken Comments Blood Pressure 138/78 02/03/2025 2:39 PM EST Pulse 80 02/03/2025 2:39 PM EST Temperature 36.8 C (98.2 F) 02/03/2025 2:39 PM EST Respiratory Rate 20 02/03/2025 2:39 PM EST Oxygen Saturation 98% 02/03/2025 2:39 PM EST Inhaled Oxygen Concentration - - Weight 57.4 kg (126 lb 9.6 oz) 02/03/2025 2:39 P M EST Height 167 cm (5' 5.75 ) 02/03/2025 2:39 PM EST Body Mass Index 20.59 02/03/2025 2:39 PM EST documented in this encounter Plan of Treatment Upcoming Encounters Date Type Department Care Team (Late st Contact Info) Description 02/07/2025 11:30 AM EST Office Visit [facility] PED[facility] [address] [place] [address] Gildardo Huertas MD [address] [place] [address] 03/13/2025 10:30 AM EST Clinical Support [facility] [address] [place] [address] 04/19/2025 2:15 PM EST Clinical Support [facility] [address] [place] [address] Leelee Castaneda RN [address] [place] [address] Scheduled Orders Name Type Priority Associated Diagnoses Orde r Schedule Lipid Panel, Standard Lab Routine Hyperlipidemia, unspecified hyperlipidemia type Expected: 02/03/2025 (Approximate), Expires: 02/03/2026 Scheduled Referrals Name Type Priority Associated Diagnoses Orde r Schedule Referral to Vascular Surgery Outpatient Referral Routine Localized swelling of right lower extremity Expected: 02/03/2025 (Approximate), Expires: 02/03/2026 documented as of this encounter Visit Diagnoses Diagnosis Localized swelling of right lower extremity- Primary Hyperlipidemia, unspecified hyperlipidemia type documented in this encounter Additional Health Concerns Assessment Noted Time PHQ-9 Depression Total Score: 10 023 2:09 PM EST documented as of this encounter Care Teams Product Design Engineer Relationship Specialty Start Date End Date Marii Mcmillan MD [address] [place] [address] PCP - General Family Medicine 07/11/21 Carmen Baird 01/27/25 Evelyne Green Marketing Outreach CoordinatorChildrens Club Attendant 12/09/23 documented as of this encounter
--- OUTSIDE RECORDS SUMMARY | 2025-02-03 16:11 | XMS_ITS | Patient Health Record ---
Author Organization [facility] Address [address] [place] [id number] Care Team Providers Care Bumper Machine Operator Name Role Phone Iman CAGLE, Maryjo Primary Care Provider Angel Mathew Jr Unavailable Allergies Allergen (clinical drug ingredient) Drug/Non Drug Allergy documented on EMR Reaction Allergy Type Onset Date Status Non-steroidal anti-inflammatory agent (FN) N-SAIDS (uncoded) Unknown Allergy Active Reason For Referral No Information Medications Medication SIG (Take, Route, Frequency, Duration) Notes Start Date End Date Status PROzac 40 MG Capsule 1 capsule in the mo rning Orally Once a day Active Geodon 20 MG Capsule 1 capsule with food Orally once a day Active KlonoPIN 1 MG Tablet 1 tablet Orally thr ee x a day Active Flomax 0.4 MG Capsule 1 Orally qd Active Timolol Hemihydrate 0.5 % Solution 1 drop into affected eye Ophthalmic Once a day Active Clotrimazole 1 % Cream 1 application to affected area Externally Once a day Active Vitamin K Active Aquaphor Ointment Externally A ctive Triamcinolone & Emollient 0.1 % Kit 1 Externally Twice a day Act rama Colace 100 MG Capsule 1 capsule as neede d Orally bid/prn Active Artificial Tear Acti ve Multi Vitamin/Minerals 1 Tablet 1 Orally qd Active Social History Social History Additional Details Category Social Info Options Details Miscellaneous: Marital status: Occupation: disabled Problems Problem Type SNOMED Code ICD Code Onset Dates Problem Status W/U Status Risk Notes Problem Alcoholic cirrhosis (345373425) Alcoholic cirrhosis of liver without ascites (K70.30) Active confirmed Plan Of Treatment No Information Insurance Providers Payer Name Payer Address Payer Phone Subscriber Number Group Number Insured Name Patient Relationship to Insured Coverage Start Date Coverage End Date [facility] [address] [address] [place], [place] [id number] LISA DWYER Self - patient is the insured Medical (General) History Medical History History ICD Code left bundle-branch block tuberculosis glaucoma anxiety/depression/mood disorder with pa ranoia cirrhosis substance abuse, and in remission asthma disc disease Surgical History Surgery Date(Month/Year) eye surgery ear surgery cholecystectomy hernia repair
--- OUTSIDE RECORDS SUMMARY | 2025-02-03 16:11 | XMS_ITS | Encounter Summary ---
Author Organization [employer] Address [address] [place] [address] 7t [place] [address] Care Team Providers Care Parquetry Floor Layer Name Role Phone Marii Mcmillan MD Primary Care Provider [phone] Carmen Baird Unavailable Reason for Visit * Reason Comments Med Change Request Encounter Details Date Type Department Care Team ([facility] Contact Info) Description 05/29/[address] [facility] CHC MED & PEDS [address] [place] [address] Marii Mcmillan MD [address] [place] [address] Takes dietary supplements Social History Tobacco Use [...] Description 02/07/2025 11:30 AM EST Office Visit [facility] MED & PEDS [address] [place] [address] Gildardo Huertas MD [address] [place] [address] 03/13/2025 10:30 AM EST Clinical Support [facility] MED & PEDS [address] [place] [address] 04/19/2025 2:15 PM EST Clinical Support [facility] PED[facility] [address] [place] [address] Leelee Castaneda, REGINA [address] [place] [address] documented as of this encounter Visit Diagnoses Diagnosis Takes dietary supplements documented in this encounter Additional Health Concerns Assessment Noted Time PHQ-9 Depression Total Score: 10 023 2:09 PM EST documented as of this encounter Care Teams Parquetry Floor Layer Relationship Specialty Start Date End Date Marii Mcmillan MD [address] [place] [address] PCP - General Family Medicine 07/11/21 Carmen Baird 01/27/25 Evelyne Green Learning Support AssistantJuvenile Officer 12/09/23 documented as of this encounter
--- OUTSIDE RECORDS SUMMARY | 2025-02-03 16:11 | XMS_ITS | Encounter Summary ---
Author Organization [employer] Address [address] 7t [place] [address] Care Team Providers Care General Accounting Manager Name Role Phone Marii Mcmillan MD Primary Care Provider [phone] Carmen Baird Unavailable Reason for Visit * Reason Onset Date Comments Referral 03/12/2023 Encounter Details Date Type Department Care Team ([facility] Contact Info) Description 03/12/[address] [facility] CHC MED & PEDS [address] [place] [address] Marii Mcmillan MD [address] [place] [address] Referral Social History Tobacco Use Types Packs/Day [...] - 03/12/2023 1:49 PM EST Tc from [facility] office [facility] [place]ology has not received referral. documented in this encounter Plan of Treatment Upcoming Encounters Date Type Department Care Team (Late st Contact Info) Description 02/07/2025 11:30 AM EST Office Visit [facility] MED & PEDS [address] [place] [address] Gildardo Huertas MD [address] [place] [address] 03/13/2025 10:30 AM EST Clinical Support [facility] MED & PEDS [address] [place] [address] 04/19/2025 2:15 PM EST Clinical Support [facility] MED & PEDS [address] [place] [address] Leelee Castaneda RN [address] [place] [address] documented as of this encounter Visit Diagnoses Not on filedocumented in this encounter Additional Health Concerns Assessment Noted Time PHQ-9 Depression Total Score: 10 023 2:09 PM EST documented as of this encounter Care Teams General Accounting Manager Relationship Specialty Start Date End Date Marii Mcmillan MD [address] [place] [address] PCP - General Family Medicine 07/11/21 Carmen Baird 01/27/25 Evelyne Green Sewer And Drain TechnicianWinery Cellar Hand 12/09/23 documented as of this encounter
--- OUTSIDE RECORDS SUMMARY | 2025-02-03 16:11 | XMS_ITS | Encounter Summary ---
Author Organization [employer] Address [address] [place] [address] 7 [place] [address] Care Team Providers Care Director Of Neurology Name Role Phone Marii Mcmillan MD Primary Care Provider [phone] Carmen Baird Unavailable Reason for Visit * Reason Comments Med Refill Encounter Details Date Type Department Care Team (Late Contact Info) Description 04/08/2022 Refill [facility] MED & PEDS [address] [place] [address] Marii Mcmillan MD [address] [place] [address] Vitamin deficiency, unspecified Social History Tobacco Use [...] Department Care Team (Late Contact Info) Description 02/07/2025 11:30 AM EST Office Visit [facility] MED & PEDS [address] [place] [address] Gildardo Huertas MD [address] [place], [place] [phone] 03/13/2025 10:30 AM EST Clinical Support [facility] MED & PEDS [address] [place] [address] 04/19/2025 2:15 PM EST Clinical Support [facility] MED & PEDS [address] [place] [address] Leelee Castaneda, RN [address] [place] [address] documented as of this encounter Visit Diagnoses Diagnosis Vitamin deficiency, unspecified documented in this encounter Care Teams Director Of Neurology Relationship Specialty Start Date End Date Marii Mcmillan MD [address] [place] [address] PCP - General Family Medicine 07/11/21 Carmen Baird 01/27/25 Evelyne Green Radial Drill Press Operator For PlasticTermination Clerk 12/09/23 documented as of this encounter
--- OUTSIDE RECORDS SUMMARY | 2025-02-03 16:11 | XMS_ITS | Encounter Summary ---
Author Organization [employer] Address [address] [place] [address] 7t [place] [address] Care Team Providers Care Beveler Name Role Phone Marii Mcmillan MD Primary Care Provider [phone] Carmen Baird Unavailable Reason for Visit * Reason Onset Date Comments Referral 05/20/2022 Encounter Details Date Type Department Care Team ([facility] Contact Info) Description 05/20/2022 Telephone [facility] CHC MED & PEDS [address] [place] [address] Marii Mcmillan MD [address] [place] [address] Referral Social History Tobacco Use Types Packs/Day [...] made on 02/04/2022. Please contact pt at [phone] documented in this encounter Plan of Treatment Upcoming Encounters Date Type Department Care Team (Late st Contact Info) Description 02/07/2025 11:30 AM EST Office Visit [facility] MED & PEDS [address] [place] [address] Gildardo Huertas MD [address] [place] [address] 03/13/2025 10:30 AM EST Clinical Support [facility] PED[facility] [address] [place] [address] 04/19/2025 2:15 PM EST Clinical Support [facility] MED [facility] PED[facility] [address] [place] [address] Leelee Castaneda, REGINA [address] [place] [address] documented as of this encounter Visit Diagnoses Not on filedocumented in this encounter Care Teams Beveler Relationship Specialty Start Date End Date Marii Mcmillan MD [address] [place] [address] PCP - General Family Medicine 07/11/21 Carmen Baird 01/27/25 Evelyne Green Commissioned Police OfficerSide Seam Envelope Machine Operator 12/09/23 documented as of this encounter
--- OUTSIDE RECORDS SUMMARY | 2025-02-03 16:11 | XMS_ITS | Data Portability ---
Author Organization [place] - [facility], Allergy Address [address] [place] [address] Care Team Providers Care Tip Fixer Name Role Phone PAULINA EPSTEIN Primary Care Provider [phone] Assessment Encounter Date Assessment Date Assessment LastModified [...] Follow-up for next debridement in 6 months. Not available 12/26/2024 11:23:45 Plan of Treatment [...] Organization Details Recorded Time Chronic mastoidi tis 21257098 Active 2013 Chronic mastoidi tis; Location : right CM S Risk: low risk CMS Treatmen t: establis hed problem (to examiner ): unstable or worsenin g Condit ion: unstable Note: Date Diagnose d: 4 3:25 PM (383.1) Not Available [facility] 4 02:24:10 Impacted cerumen 79055024 Active 2014 Impacted cerumen; Note: Date Diagnose d: 5 2:25 PM (380.4) Not Available [facility] 4 02:23:45 Chronic right mastoidi tis 08632334043 75191 Active 2015 Chronic mastoidi tis, right ear; Note: Date Diagnose d: 6 11:16 AM (H70.11) Not Available [facility] 4 02:24:01 Impacted cerumen in left ear 40496058180 25134 Active 2015 Impacted cerumen, left ear; Note: Date Diagnose d: 6 11:10 AM (H61.22) Not Available [facility] 4 02:23:56 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; Note: Date Diagnose d: 6 11:09 AM (383.33) Not Available [facility] 4 02:24:16 Granulat ions of mastoid cavity 052085911 Completed 201510/16/2023 Granulat ion of postmast oidectom y cavity, right ear; Note: Date Diagnose d: 6 11:16 AM (H95.121 ) Not Available [facility] 4 02:23:25 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 53092488784 05555 Active 2022 Total perforat ions of tympanic membrane , right ear; Note: Date Diagnose d: 3 10:38 AM (H72.821 ) SAI ROCA MD [address] [facility],[place] [address], [place], [address] , [place] - [facility] 5 16:26:46 Postmast oidectom y complica tion 49569649 Active 2022 Other disorder s followin g mastoide ctomy, right ear; Note: Date Diagnose d: 3 10:33 AM (H95.191 ) SAI ROCA MD [address] [facility],[place] [address], [place], [address] , [facility] - [facility] 5 11:22:57 Bilatera l temporom andibula r joint pain 55286515065 935585 Active 2023 Arthralg ia of bilatera l temporom andibula r joint; Note: Date Diagnose d: 06/16/2023 11:02 AM (M26.623 ) SAI ROCA MD [address] [facility],[place] [address], [place], [address] , [facility] - [facility] 5 11:24:03 Neck pain 51866747 Active 2023 Cervical chelsie; Note: Date Diagnose d: 06/16/2023 11:02 AM (M54.2) Not Available [facility] 4 02:24:04 Chronic neck pain 47663272506 07 Active 2023 Loren bean [place] - [facility] 4 13:58:40 Candidal otitis externa 30613849 Active 2024 SAI ROCA MD [address] [place] [address],[place] [address], [place], [address] , [place] - [facility] 5 16:26:46 Problem Notes None recorded. Procedures Surgical History Date Name Laterality Status Provider Name and Address Organization Details Recorded Time 5 Debridement of Mastoid Cavity right completed SAI ROCA MD [address] [facility],[address], [address], [facility] - [facility] 12/26/2024 11:17:39 5 Debridement of Mastoid Cavity right completed FAISAL SALAS [facility] [place],[address], [address], [facility] - [facility] 10/21/2024 15:56:26 5 Debridement of Mastoid Cavity complex right completed SAI ROCA MD [address] [facility],[address], [address], [facility] - [facility] 10/04/2024 12:02:08 5 Debridement of Mastoid Cavity right completed SAI ROCA MD [address] [facility],[address], [address], [facility] - [facility] 06/01/2024 21:11:43 Imaging Results None recorded. Procedure Notes None recorded. Medical Equipment None Reported. Allergies Allergen ID Allergen Name Allergen Category Reaction Reaction Severity Criticality Documentation Date Start Date Code Code System Note Provider Name and Address Organization Details Recorded Time 522342 adhesive tape environme nt,medica tion Not available Not available Not available 05/31/2024 Cecelia bean [facility] 5 10:17:08 58525 Non-stero idal anti-infl ammatory agent (substanc e) medicatio n other Not available Not available 07/28/2023 19699 5008 SNOMED React ion: Unkno wn; Not Available [facility] 4 00:53:26 43151 Penicilli n Not available other Not available Not available 07/28/2023 99875 RxNorm React ion: Unkno wn; Not Available [facility] 4 00:53:42 Medications Name Sig Start Date Stop Date Status Note LastModified by Organization Details LastModified Time multivita min tablet active Medicati on ID: 086436 B rand Name: multivit eldridge Sen d [...] a day 06/02 completed Medicati on ID: 175682 D uration Value: 10 Brand Name: ofloxaci [...] as directed 06/02 completed Medicati on ID: 601059 D uration Value: 10 Brand Name: Ciprodex [...] vitamin K 06/02 completed Medicati on ID: 218513 B rand Name: vitamin k Send Method: [...] Updated DateTime 10/04/2024 167.64 cm 21 kg/m2 09260.01 g SONIA CASTRO [place] - [facility] 10/04/2024 11:42:53 Date Recorded Body height Body mass index (BMI) Body weight Provider Name and Address Organization Details Last Updated DateTime 10/21/2024 165.1 cm 21 kg/m2 75383.64 g Maggy Telles [facility] 10/21/2024 13:32:03 Date Recorded Body height Body mass index (BMI) Body weight Provider Name and Address Organization Details Last Updated DateTime 12/26/2024 165.1 cm 21.1 kg/m2 42900.23 g Cecelia Owen [facility] 12/26/2024 11:03:26 Social History Question Answer Notes LastModified by Organizat ion Details LastModified Time Tobacco Smoking Status Former Smoker SAI ROCA MD [address] [place] [address], [address], [facility] - [facility] 10/28/2023 19:37:28 When Did You Quit Smoking? 6-10yearssin celastcigare tte [email or web address] Information not available 10/28/2023 How Many Years Have You Smoked Tobacco? 45 [email or web address] Information not available 10/28/2023 Sex: Unknown Functional Status Question Answer Note LastModified by Organization D etails LastModified Time What is your level of alcohol consumption? None [email or web address] Information not available 10/28/2023 Mental Status None recorded. Family History Nothing Reported. Medical History Condition Response Anxiety Y Glaucoma Y Depression Y Asthma Y Past Encounters Encounter ID Performer Location Encounter Start Date Encounter Closed Date Diagnosis/Indication Diagnosis SNOMED-CT Code Diagnosis ICD10 Code Diagnosis IMO Codes Diagnosis Note [id number] SAI ROCA MD [facility] [address] [address] 06/02/2024 13:15:22 06/02/2024 13:58:49 Postmastoidectomy complication 40398036 H95.191 Right canal wall down mastoidect [place] cavity was debrided today under the binocular microscope . No signs of acute or chronic inflammati on. Patient will follow-up in 12 months for next debridemen t Total perf oration of right tympanic membrane 1740428517 864318 H72.821 Chronic neck pain 966668 6996 107 M54.2 Patient's previously noted neck pain has resolved. Physical exam of the neck is normal. No need to proceed with CAT scan. [id number] SAI ROCA MD [facility] [address] [address] 10/04/2024 11:27:11 10/04/2024 11:57:36 Postmastoidectomy complication 07976765 H95.191 Right canal wall down mastoidect [place] [...] Total perf oration of right tympanic membrane 2122439633 987459 H72.821 Candidal o titis externa 72713243 B37.84 [id number] FAISAL SALAS [facility] [address] [address] 10/21/2024 13:23:09 10/21/2024 14:08:41 Postmastoidectomy complication 07555958 H95.191 Total perf oration of right tympanic membrane 3783428545 267325 H72.821 Candidal o titis externa 98050687 B37.84 Resolved. [id number] SAI ROCA MD [facility] [address] [address] 12/26/2024 10:52:48 12/26/2024 16:44:34 Postmastoidectomy complication 36754064 H95.191 Total perf oration of right tympanic membrane 5606504025 807240 H72.821 Bilateral temporomandibular joint pain 3819586941 0128412 M26.623 Today I reaffirmed the fact that [...] [employer] Member ID Guarantor Name 10/04/2024 1 [place] [facility] Manuel Grimm [id number] Manuel Grimm 12/23/2024 1 [place] [facility] (MEDICAID) Manuel Grimm [id number] Manuel Grimm Notes Date Note Type Note [...] diagnosis of TMJD. SAI ROCA MD [address] [facility],[address], [address], [facility] - [facility] 06/02/2024 13:58:47 10/04/2024 text/html Patient with history of right canal wall down mastoidectomy cavity comes in today for mastoid debridement. Last cleaning in May 2024. At that visit I recommended 1 year follow-up. He comes back at 4 months for reevaluation. Patient reports that he has been having drainage and itchiness and irritation for a few weeks now. SAI ROCA MD [address] [facility],[address], [address], [facility] - [facility] 10/04/2024 12:02:42 10/21/2024 text/html ROS as noted in the HPI 64 year old male, with a history of right canal wall down mastoidectomy, presents for reevaluation of right fungal otitis externa. Patient reports significant improvement in terms of itchiness, but continues to endorse mild ear pain and an occasional wet sensation. No recurrent drainage since the last visit. MITZI LARRY MD [address] [facility],[address], [address], [facility] - [facility] 10/21/2024 17:43:47 12/26/2024 text/html Patient with history of right canal wall down mastoidectomy cavity comes in today for mastoid debridement. Treated over the summer for fungal mastoid bowl infection with lotrisone cream application, confirmed resolved in October. Patient denies discharge currently. He has some periauricular discomfort. He has long-term issues with TMJ SAI ROCA MD [address] [place] [address], [place], [address], [facility] - [facility] 12/26/2024 11:24:30
--- OUTSIDE RECORDS SUMMARY | 2025-02-03 16:11 | XMS_ITS | Encounter Summary ---
Author Organization [facility] Address [address] [facility] [address]t [place] [address] Care Team Providers Care Edge Gluer Name Role Phone Marii Mcmillan MD Primary Care Provider [phone] Carmen Baird Unavailable Reason for Visit * Reason Onset Date Comments Med Refill 06/27/2024 Encounter Details Date Type Department Care Team ([facility] st Contact Info) Description 06/27/2024 Telephone [facility] MEDICINE [address] [place] [address] Marii Mcmillan MD [address] [place], [place] [id number] Med Refill Social History Tobacco Use Types [...] 5-325 MG tablet To be sent to: [facility]/pharmacy #[id number] MARY CARIAS - [address] [facility] documented in this encounter Plan of Treatment Upcoming Encounters Date Type Department Care Team ([facility] st Contact Info) Description 02/07/2025 11:30 AM EST Office Visit [facility] [address] [place] [address] Gildardo Huertas MD [address] [place] [address] 03/13/2025 10:30 AM EST Clinical Support [facility] [address] [place] [address] 04/19/2025 2:15 PM EST Clinical Support [facility] [address] [place] [address] Leelee Castaneda RN [address] [place] [address] documented as of this encounter Visit Diagnoses Not on filedocumented in this encounter Additional Health Concerns Assessment Noted Time PHQ-9 Depression Total Score: 10 023 2:09 PM EST documented as of this encounter Care Teams Edge Gluer Relationship Specialty Start Date End Date Marii Mcmillan MD [address] [place] [address] PCP - General Family Medicine 07/11/21 Carmen Baird 01/27/25 Evelyne Green Nailhead OperatorBoom Crane Operator 12/09/23 documented as of this encounter
--- OUTSIDE RECORDS SUMMARY | 2025-02-03 16:11 | XMS_ITS | Encounter Summary ---
Author Organization [facility] Address [address] [facility] 7[address] [place] [address] Care Team Providers Care Branch Coordinator Name Role Phone Marii Mcmillan MD Primary Care Provider [phone] Carmen Baird Unavailable Reason for Visit * Reason Onset Date Comments PT1 05/15/2023 Encounter Details Date Type Department Care Team ([facility] st Contact Info) Description 05/15/[address] [facility] MED[facility]INE [address] [place] [address] Marii Mcmillan MD [address] [place], [place] [id number] PT1 Social History Tobacco Use Types Packs/Day [...] visits) ( x monthly, weekly, daily) Address: [address] [place] [address] Facility[facility] Wheel Chair: NO Midwife Needed: NO Address and phone confirmed by Evelyne CHAWLA documented in this encounter Plan of Treatment Upcoming Encounters Date Type Department Care Team (Late st Contact Info) Description 02/07/2025 11:30 AM EST Office Visit [facility] [address] [place] [address] Gildardo Huertas MD [address] [place] [address] 03/13/2025 10:30 AM EST Clinical Support [facility] [address] [place] [address] 04/19/2025 2:15 PM EST Clinical Support [facility] [address] [place] [address] Leelee Castaneda, RN [address] [place] [address] documented as of this encounter Visit Diagnoses Not on filedocumented in this encounter Additional Health Concerns Assessment Noted Time PHQ-9 Depression Total Score: 10 023 2:09 PM EST documented as of this encounter Care Teams Branch Coordinator Relationship Specialty Start Date End Date Marii Mcmillan MD [address] [place] [address] PCP - General Family Medicine 07/11/21 Carmen Baird 01/27/25 Evelyne Green Upkeep WorkerManager Hydraulic 12/09/23 documented as of this encounter
--- OUTSIDE RECORDS SUMMARY | 2025-02-03 16:11 | XMS_ITS | Encounter Summary ---
Author Organization [facility] Address [address] [facility] [address] [place] [address] Care Team Providers Care Hourly Manager Name Role Phone Marii Mcmillan MD Primary Care Provider [phone] Carmen Baird Unavailable Reason for Visit * Reason Onset Date Comments Appointment Request 04/22/2023 Encounter Details Date Type Department Care Team ([facility] Contact Info) Description 04/22/[address] [facility] [address] [place] [address] Marii Mcmillan MD [address] [place] [address] Appointment Request Social History Tobacco Use Types [...] enough money to get more: Never True 11/ 05/2022 Transportation Answer Date Recorded In the [...] was scheduled for SD[facility] apt today in [facility] but, due to car not starting [...] fever. Pt is offered to come to [facility] today or tomorrow morning but, Pt would rather come to [facility]. Pt is advised to call back [...] (Car wont Start) Please contact pt @ [phone] documented in this encounter Plan of Treatment Upcoming Encounters Date Type Department Care Team ([facility] st Contact Info) Description 02/07/2025 11:30 AM EST Office Visit [facility] [address] [place] [address] Gildardo Huertas MD [address] [place] [address] 03/13/2025 10:30 AM EST Clinical Support [facility] [address] [place] [address] 04/19/2025 2:15 PM EST Clinical Support [facility] [address] [place] [address] Leelee Castaneda, REGINA [address] [place] [address] documented as of this encounter Visit Diagnoses Not on filedocumented in this encounter Additional Health Concerns Assessment Noted Time PHQ-9 Depression Total Score: 10 023 2:09 PM EST documented as of this encounter Care Teams Hourly Manager Relationship Specialty Start Date End Date Marii Mcmillan MD [address] [place] [address] PCP - General Family Medicine 07/11/21 Carmen Baird 01/27/25 Evelyne Green Journeyman Electrician Pv InstallerInformation Management Manager 12/09/23 documented as of this encounter
--- OUTSIDE RECORDS SUMMARY | 2025-02-03 16:11 | XMS_ITS | Clinical Summary ---
Author Organization [employer] Address [address] [place] [address] [address] [place] [address] Care Team Providers Care Director Technical Name Role Phone Marii Mcmillan MD Primary Care Provider [phone] Carmen Baird Unavailable Allergies Active Allergy Reactions Criticality Noted Date [...] DAY FOR 3 WEEKS THEN DISCONTINUE Active Multiple Vitamin (Multivitamin) tabletIndications :Vitamin deficiency, [...] EVERY DAY 90 tablet 1 025 Active cholecalciferol (Vitamin D-3) 50 MCG (2000 UT) capsule Take 50 mcg by mouth Once per day. Active ascorbic acid (Vitamin C) 500 MG tablet Take 2 tablets by mouth Once per day. 025 Active naloxone (Narcan) 4 mg/0.1 mL nasal spray Administer 1 spray (4 mg) into affected nostril(s) if needed for opioid reversal. May repeat every 2-3 minutes if needed, alternating nostrils, until medical assistance becomes available. 2 each 2 025 2025 Active triamcinolone (Kenalog) 0.5 % ointment APPLY TOPICALLY 2 TIMES DAILY TO AFFECTED AREA 15 g 025 Active oxyCODONE (Roxicodone) 5 MG immediate release tabletIndications :Right hip pain Take 1 tablet (5 mg) by mouth every 6 (six) hours if needed for severe pain for up to 28 days. Do not start before January 24, 2025. 112 tablet 025 2024 Active gabapentin (Neurontin) 100 MG capsule Take 1 capsule (100 mg) by mouth at bedtime. 90 capsule 1 025 Active acetaminophen (Tylenol) 325 MG tablet Take 1 tablet (325 mg) by mouth every 6 (six) hours if needed for mild pain for up to 28 days. 112 tablet 025 2024 Active sulfamethoxazole- trimethoprim (Bactrim DS) 800-160 MG tablet Take 1 tablet by mouth 2 times daily for 10 days. 20 tablet 025 2024 Active furosemide (Lasix) 40 MG tablet Take 1 tablet (40 mg) by mouth Once per day. 5 tablet 2024 Active atorvastatin (Lipitor) 40 MG tabletIndications :Hyperlipidemia, unspecified hyperlipidemia type TAKE 1 TABLET BY MOUTH EVERY DAY IN THE MORNING 90 tablet 4 024 2024 Discontinued(T herapy completed) gabapentin (Neurontin) 100 MG capsule Take 1-2 capsules (100-200 mg) by mouth at bedtime. 90 capsule 1 025 2024 Discontinued Galzin 50 MG capsule Take 1 capsule by mouth Once per day. 2024 Discontinued(T herapy completed) oxyCODONE (Roxicodone) 5 MG immediate release tabletIndications [...] he has had prior cardiac catheterizations in [facility] as well as [facility] but more than 10-15 years ago. Patient [...] and was normal. Plan to schedule with [facility] History of cardiac arrhythmia 08/05/2024 Assessment & Plan (08/05/2024 7:53 PM EDT): - Reports previous cardiac cath at [facility] and [facility] > 10 years ago. No remarkable findings. - May 2024 consult note from [facility] Cards: Echo with LVEF 59% Myocardial perfusion [...] Plan (08/05/2024 7:42 PM EDT): Following with [facility] - Dr. Pratt Per last consult [...] Plan (08/05/2024 7:47 PM EDT): Following with [facility], plan for right TKA Before proceeding with surgery, would like to r/o obstruction in RLE. Order for US placed July 2024. Assessment & Plan (01/29/2024 1:37 AM EST): Pt is still experiencing pain. Relevant orders: Referral to Orthopaedic Surgery Assessment & Plan (07/07/2023 3:56 PM EDT): administrative services specialist will further monitor hip pain. [...] mother with Rheumatoid arthritis - Consult at [facility] in May 2022 with plan for [...] organization. 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 low back pain, unspecified back pain laterality, unspecified whether sciatica present 01/30/2025 Travel 01/27/2025 Patient Outreach [facility] [address] [place] [address] Marii Mcimllan MD Care Coordination (CP Care Coordination Chart Review) 01/27/2025 Travel 01/27/2025 Patient Outreach [facility] [address] [place] [address] Marii Mcmillan MD Care Coordination ([facility] Follow Up) 01/27/[address] [address] Marii Mcmillan MD Nurse Triage 01/27/2025 Patient Outreach [address] [address] Marii Mcmillan MD 01/26/2025 Refill [facility] [address] [place] [address] Leelee Castaneda RN 01/26/2025 Orders Only GENERIC EXTERNAL DATA DEPARTMENT Provider, Generic External Data 01/25/2025 Refill [facility] [address] [place] [address] Nita Steen FNP 01/25/2025 Telephone [facility] [address] [place] [address] Marii Mcmillan MD Prior Auth Prescription 01/18/2025 Telephone [facility] [address] [place] [address] Marii Mcmillan MD Medication Question 12/27/2024 Refill [facility] [address] [place] [address] Marii Mcmillan MD Right hip pain 12/20/2024 Telephone [facility] [address] [place] [address] Marii Mcmillan MD Call Back Request 12/09/2024 Refill [facility] [address] [place] [address] Marii Mcmillan MD 11/28/2024 Refill [facility] [address] [place] [phone] Marii Mcmillan MD Right hip pain (Primary Dx) 11/09/2024 3:15 PM EDT Clinical Support [facility] [address] [place] [address] Leelee Castaneda RN Chronic low back pain, unspecified back pain laterality, unspecified whether sciatica present 11/09/2024 Refill [facility] [address] [place] [address] Leelee Castaneda RN 11/09/2024 Travel 11/08/2024 Travel from Last 3 Months Immunizations Immunization [...] Mass Index 20.59 02/03/2025 2:39 PM EST Plan of Treatment Upcoming Encounters Date Type Department Care Team ([facility] st Contact Info) Description 02/07/2025 11:30 AM EST Office Visit [facility] [address] [place] [address] Gildardo Huertas MD [address] [place] [address] 03/13/2025 10:30 AM EST Clinical Support [facility] [address] [place] [address] 04/19/2025 2:15 PM EST Clinical Support [facility] [address] [place] [address] Leelee Castaneda, REGINA [address] [place] [address] Health Maintenance Due Date Last Done Comments [...] 08/05/2024 , 05/23/2022 SDOH Screening 08/05/2025 08/05/2024 Disability Screening 11/08/2025 11/08/2024 Tobacco Screening 02/03/2026 02/03/2025 Lipid Panel 08/12/2029 08/12/2024, 07/26/2021 DTaP/Tdap/Td Vaccines [...] Procedure Name Priority Date/Time Associated Diagnosis Comments CT ABDOMEN PELVIS W CONTRAST Routine 01/26/2025 7:13 PM EST US VENOUS DUPLEX LE RT Routine 12:55 [...] Recently Relevant to Health Maintenance Results * CT Abdomen Pelvis w/ Contrast (01/26/2025 7:13 PM EST) Anatomical Region Laterality Modality Body, Pelvis, Abdomen Computed T omography 01/26/2025 7:13 PM EST Narrative 01/26/2025 7:14 PM EST [place] [address] CT Scan Report Signed Patient: Manuel Grimm MR#: [id number] : 1960 Acct:[id number] Age/Sex: 64 / M ADM Date: 01/26/25 Loc: HO.ED Attending Dr: Ordering Physician: Audrey Mcdowell MD Date of Service: 01/26/25 Procedure(s): CT abdomen pelvis w IV con Accession Number(s): [id number] cc: Audrey Mcdowell MD; Marii Mcmillan MD Report Number: [id number]: Total DLP = 326.00 mGy-cm Reason for Exam: right groin pain CLINICAL HISTORY: right groin pain CT abdomen and pelvis with contrast Comparison: US/KS/SR - US ABDOMEN LIMITED WITH LIVER ELASTOGRAPHY - 06/16/24 09:[address]/SR - CT ABDOMEN PELVIS WITHOUT IV CONTRAST - 12/03/22 11:21 EDT Findings: No consolidation at the lung bases. Calcified granuloma. Subsegmental atelectasis versus linear scarring. Moderate centrilobular emphysema. Status post cholecystectomy. Unremarkable bladder. Cirrhotic liver. Pancreatic parenchymal calcifications with ductal dilatation, likely the sequela of chronic pancreatitis. Subcentimeter low attenuating lesion in the spleen. The other solid organs are unremarkable. No bowel wall thickening or dilation. A normal appendix is identified. No aneurysm. Moderate calcified atherosclerotic disease. Varices most prominent in the anterior abdominal wall. No lymphadenopathy. No ascites. No acute osseous abnormality. Small fat containing left inguinal hernia, unchanged. No acute findings in the right groin Impression: No acute findings. This document has been electronically signed by: Constance Aguilar MD on 01/26/2025 19:13:40 Dictated By: Constance Ryan MD Signed By: <Electronically signed by Constance Ryan MD in OV> 01/26/251913 DD/ 12 TD/TT: 01/26/251912 Picker: Procedure Note Donotuseinterpreter, Image - 01/26/[address] [place] [address] [address] Scan Report Signed Patient: Manuel Grimm DMR#: [id number] : 1960cct:[id number] Age/Sex: 64 / MADM Date: 01/26/25 Loc: HO.ED Attending Dr: Ordering Physician: Audrey Mcdowell MD Date of Service: 01/26/25 Procedure(s): CT abdomen pelvis w IV con Accession Number(s): [id number] cc: Audrey Mcdowell MD; Marii Mcmillan MD Report Number: [id number]: Total DLP = 326.00 mGy-cm Reason for Exam: right groin pain CLINICAL HISTORY: right groin pain CT abdomen and pelvis with contrast Comparison: US/KS/SR - US ABDOMEN LIMITED WITH LIVER ELASTOGRAPHY - 06/16/24 09:[address]/SR - CT ABDOMEN PELVIS WITHOUT IV CONTRAST - 12/03/22 11:21 EDT Findings: No consolidation at the lung bases. Calcified granuloma. Subsegmental atelectasis versus linear scarring. Moderate centrilobular emphysema. Status post cholecystectomy. Unremarkable bladder. Cirrhotic liver. Pancreatic parenchymal calcifications with ductal dilatation, likely the sequela of chronic pancreatitis. Subcentimeter low attenuating lesion in the spleen. The other solid organs are unremarkable. No bowel wall thickening or dilation. A normal appendix is identified. No aneurysm. Moderate calcified atherosclerotic disease. Varices most prominent in the anterior abdominal wall. No lymphadenopathy. No ascites. No acute osseous abnormality. Small fat containing left inguinal hernia, unchanged. No acute findings in the right groin Impression: No acute findings. This document has been electronically signed by: Constance Aguilar MD on 01/26/2025 19:13:40 Dictated By: Constance Ryan MD Signed By: <Electronically signed by Constance Ryan MD in OV> 01/26/251913 DD/ 12 TD/TT: 01/26/251912 Picker: [facility] External Provider IMG CT PROCEDURES Final Result * US VENOUS DUPLEX LE RT (01/26/2025 12:55 PM EST) Anatomical Region Laterality Modality Abdomen Ultrasound 01/26/2025 12:5 5 PM EST Narrative 01/26/2025 1:25 PM EST [address] [address] Ultrasound Report Signed Patient: Manuel Grimm MR#: [id number] : 1960 Acct:[id number] Age/Sex: 64 / M ADM Date: 01/26/25 Loc: .ED Attending Dr: Ordering Physician: Miguel Ángel Rene Date of Service: 01/26/25 Procedure(s): US venous duplex LE RT Accession Number(s): [id number] cc: Miguel Ángel Rene; Marii Mcmillan MD [...] William Lau MD 01/26/2025 01:22 PM EST RP Dictated By: William Lau MD Signed By: <Electronically signed by William Lau MD in OV> 01/26/25 1322 DD/ 1255 TD/TT: 01/26/25 1305 Picker: Procedure Note Donotuseinterpreter, Image - 01/26/2025 [place] [address] Ultrasound Report Signed Patient: Manuel Grimm DMR#: [id number] : 1960cct:[id number] Age/Sex: 64 / MADM Date: 01/26/25 Loc: .ED Attending Dr: Ordering Physician: Miguel Ángel Rene Date of Service: 01/26/25 Procedure(s): US venous duplex LE RT Accession Number(s): [id number] cc: Miguel Ángel Rene; Marii Mcmillan MD [...] William Lau MD 01/26/2025 01:22 PM EST RP Dictated By: William Lau MD Signed By: <Electronically signed by William Lau MD in OV> 01/26/25 1322 DD/ 1255 TD/TT: 01/26/25 1305 Picker: LEIGHA us [facility] External Provider IMG US PROCEDURES Final Result * XR Tibia Fibula 2 Views Right (01/26/2025 12:04 PM EST) Anatomical Region Laterality Modality Lower Extremities, Lower Leg Right Rad iographic Imaging 01/26/2025 12:0 4 PM EST Narrative 01/26/2025 12:15 PM EST [address] [address] XRay Report Signed Patient: Manuel Grimm MR#: [id number] : 1960 Acct:[id number] Age/Sex: 64 / M ADM Date: 01/26/25 Loc: HO.ED Attending Dr: Ordering Physician: Miguel Ángel Rene Date of Service: 01/26/25 Procedure(s): XR tibia fibula RT 2V Accession Number(s): [id number] cc: Miguel Ángel Rene; Marii Mcmillan MD [...] Jose Alvarado MD 01/26/2025 12:13 PM EST Dictated By: Jose Myers MD Signed By: <Electronically signed by Jose Glaser MD in OV> 01/26/25 1213 DD/ 1204 TD/TT: 01/26/25 1209 Picker: Procedure Note Donotuseinterpreter, Image - 01/26/[address] [address] XRay Report Signed Patient: Manuel Grimm DMR#: [id number] : 1Acct:[id number] Age/Sex: 64 / MADM Date: 01/26/25 Loc: HO.ED Attending Dr: Ordering Physician: Miguel Ángel Rene Date of Service: 01/26/25 Procedure(s): XR tibia fibula RT 2V Accession Number(s): [id number] cc: Miguel Ángel Rene; Marii Mcmillan MD [...] Jose Alvarado MD 01/26/2025 12:13 PM EST Dictated By: Jose Meyrs MD Signed By: <Electronically signed by Jose Glaser MDin OV> 01/26/25 1213 DD/ 1204 TD/TT: 01/26/25 1209 Picker: [facility] External Provider IMG XR PROCEDURES Final Result * (ABNORMAL) CBC auto differential (01/26/2025 12:00 PM EST) White Blood Count 4.7(L) 4.8 - 10.8 X10*3/uL [facility] Red Blood Count 4.81 4.60 - 5.80 X10*6/uL [facility] Hemoglobin 14.7 14.0 - 18.0 g/dl [facility] Hematocrit 42.7 42.0 - 52.0 % [facility] Mean Corpuscular Volume 88.8 80.0 - 98.0 fL [facility] Mean Corpuscular Hemoglobin 30.6 27.0 - 33.0 pg [facility] Mean Corpuscular HGB Conc 34.4 31.0 - 36.0 g/dl [facility] Red Cell Distribution Width 12.9 11.0 - 16.0 % [facility] Platelet Count 124(L) 160 - 400 X10*3/uL [facility] Mean Platelet Volume 9.4 9.4 - 12.4 fL [facility] Neutrophils Percent Auto 48.1 45 - 73 % [facility] Imm Gran Pct Auto 0.2 0.0 - 0.4 % [facility] Lymphocytes Percent Auto 26.2 20 - 40 % [facility] Monocytes Percent Auto 16.1(H) 2 - 11 % [facility] Eosinophils Percent Auto 8.8(H) 0 - 4 % [facility] Basophils Percent Auto 0.6 0 - 2 % [facility] NRBC Pct Auto 0.0 0.0 - 0.2 /100WBC [facility] Neutrophils Absolute Auto 2.2 2.0 - 8.3 x10*3/uL [facility] Imm Gran Abs Auto 0.01 0.00 - 0.03 X10*3/uL [facility] Lymphocytes Absolute Auto 1.2 1.2 - 4.9 X10*3/uL [facility] Monocytes Absolute Auto 0.8 0.1 - 1.2 X10*3/uL [facility] Eosinophils Absolute Auto 0.4 0.0 - 0.4 X10*3/uL [facility] Basophils Absolute Auto 0.0 0.0 - 0.2 X10*3/uL [facility] NRBC Abs Auto 0.000 0.0 - 0.012 X10*3/uL [facility] 01/26/2025 12:0 0 PM EST 01/26/2025 12:02 PM EST us Generic External Data Provider LAB BLOOD ORDERAB LES Final Result [facility] [address] [place] [phone] [phone] * Partial Thromboplastin Time, Activated (APTT) (01/26/2025 12:00 PM EST) Partial Thromboplastin Time 30.7 26.7 - 34.1 SEC [facility] 01/26/2025 12:0 0 PM EST 01/26/2025 12:02 PM EST Generic External Data Provider LAB BLOOD ORDERAB LES Final Result Performing Organization Address [facility] Co de Phone Number [facility] [address] [place] [phone] * Sed Rate by Modified Maninderergren (01/26/2025 12:00 PM EST) Erythrocyte Sedimentation Rate 5 0 - 15 MM/HR [facility] Comment:Patients with polycy themia and many hemoglobin abnormalitiesmay have depressed sed rates whereas patients with anemiamay have elevated sed rates. 01/26/2025 12:0 0 PM EST 01/26/2025 12:02 PM EST Generic External Data Provider LAB BLOOD ORDERAB LES Final Result Performing Organization Address [facility] de Phone Number [facility] [address] [place] [phone] * Prothrombin Time-INR (01/26/2025 12:00 PM EST) Prothrombin Time 12.2 11.2 - 13.5 SEC [facility] INTERNATIONAL NORM RATIO 1.0 0.9 - 1.1 [facility] Comment:INTERNATIONAL NORMAL IZED RATIO (INR) [...] ORDERAB LES Final Result Performing Organization Address [facility] Co de Phone Number [facility] [address] [place] [phone] * C-reactive Protein (01/26/2025 12:00 PM EST) Pathologist [facility] C Reactive Protein <0.04 < or = 0.50 mg/dL [facility] 01/26/2025 12:0 0 PM EST 01/26/2025 12:02 PM EST Generic External Data Provider LAB BLOOD ORDERAB LES Final Result Performing Organization Address [facility] Phone Number [facility] [address] [place] [phone] * Creatine Kinase, Total (01/26/2025 12:00 PM EST) Pathologist [facility] Creatine Kinase Total 66 38 - 174 U/L [facility] 01/26/2025 12:0 0 PM EST 01/26/2025 12:02 PM EST Generic External Data Provider LAB BLOOD ORDERAB LES Final Result Performing Organization Address [facility] de Phone Number [facility] [address] [place] [phone] * (ABNORMAL) Comprehensive Metabolic Panel (01/26/2025 12:00 PM EST) Pathologist [facility] Sodium 142 135 - 145 mmol/L [facility] Potassium 3.9 3.3 - 5.1 mmol/L [facility] Chloride 108 96 - 108 mmol/L [facility] Carbon Dioxide 27 22 - 29 mmol/L [facility] Anion Gap 11(L) 12 - 20 [facility] Urea Nitrogen (BUN) 22(H) 9 - 16 mg/dL [facility] Creatinine, Serum 0.78 0.5 - 1.4 mg/dL [facility] Creatinine Clr Calc Pharmacy 77.1 [facility] Comment:eGFR (calculated fro m the MDRD study equation) and eCrCl(calculated from the Cockcroft-Gault equation) are based ondifferent parameters and may not yield comparable results.If eCrCl result is absurd, please check patient'sheight/weight. Estimated Glomerular Filt Rate >60 [facility] Comment:Chronic Kidney Disea se: Estimated GFR < 60 mL/min/1.47p1Spcepe Kidney Disease: Estimated GFR < 15 mL/min/1.73m2 Glucose 88 60 - 115 mg/dL [facility] Calcium 9.5 8.4 - 10.2 mg/dL [facility] Bilirubin, Total 0.8 0.0 - 1.0 mg/dL [facility] Aspartate Amino Transferase 73(H) 5 - 37 U/L [facility] Alanine Aminotransferase 29 0 - 40 U/L [facility] Total Protein 7.2 6.5 - 8.0 g/dL [facility] Albumin Level 4.5 3.5 - 5.0 g/dL [facility] Alkaline Phosphatase 56 39 - 117 U/L [facility] 01/26/2025 12:0 0 PM EST 01/26/2025 12:02 PM EST us Generic External Data Provider LAB BLOOD ORDERAB LES Final Result [facility] [address] [place] [phone] * (ABNORMAL) POCT MITCHELL-14 Urine Drug [...] 3:27 PM EDT Internal Pass Control Lot# [id number] Exp: 01-13-26 us Marii Mcmillan MD POINT OF CARE TEST ENTER/EDIT ORDERABLES Final Result * HIV-1/2 Antigen and Antibodies, Fourth Generation, with Reflexes (08/12/2024 1:59 PM EDT) [facility] HIV AB/AG Nonreactive Nonreactive [facility] Comment:HIV-1 p24 Ag and/or HIV-1/HIV-2 Ab not detected.A test result that is nonreactive does not exclude thepossibility of exposure to or infection with HIV-1 and/orHIV-2. Nonreactive results in this assay for individualswith prior exposure to HIV-1 and/or HIV-2 may be due toantigen and antibody levels that are below the limit ofdetection of this assay.The [employer] HIV Ag/Ab Combo assay result andsupplemental assay results should be interpreted inconjunction with the patient's clinical presentation,history and other laboratory results. If the results areinconsistent with clinical evidence, additional testing issuggested to confirm the result. Blood Venous blood specimen / Unknown 08/12/2024 1:59 PM EDT 08/12/2024 1:59 PM EDT us Nita KELLYP LAB BLOOD ORDERABLES Final Res ult [facility] [address] [place] [phone] * (ABNORMAL) Lipid Panel, Standard (08/12/2024 1:59 PM EDT) Triglycerides 61 <150 mg/dL [facility] Comment:Desirable Triglyceri de: less than 150 mg/dLBorderline High Triglyceride 150-199 mg/dLHigh Triglyceride: 200-499 mg/dLVery High Triglyceride: greater than or equal to 5OO mg/dL Cholesterol 107 <200 mg/dL [facility] Comment:Desirable Cholestero l: less than 200 mg/dLBorderline High Cholesterol: 200-239 mg/dLHigh Cholesterol: greater than 239 mg/dL LDL Cholesterol Calculated 58 <100 mg/dL [facility] Comment:Desirable LDL: less than 100 mg/dLNear Optimal/Above Optimal LDL: 110- 129 mg/dLBorderline High LDL: 130-159 mg/dLHigh LDL: 160-189 mg/dLVery High LDL: greater than or equal to 190 mg/dL HDL Cholesterol 37(L) >40 mg/dL [facility] Comment:Desirable HDL: great er than 40 mg/dL Note: This HDL assay may give artificially low results in patients with liver disease. Blood Venous blood specimen / Unknown 08/12/2024 1:59 PM EDT 08/12/2024 1:[address] Ste[address] 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
--- OUTSIDE RECORDS SUMMARY | 2025-02-03 16:11 | XMS_ITS | Encounter Summary ---
Author Organization [employer] Address [address] [place] [address] 7t [place] [address] Care Team Providers Care Glaciologist Name Role Phone Marii Mcmillan MD Primary Care Provider [phone] Carmen Baird Unavailable Reason for Visit * Reason Comments Med Change Request Encounter Details Date Type Department Care Team ([facility] Contact Info) Description 05/27/2022 Refill [facility] CHC MED & PEDS [address] [place] [address] Marii Mcmillan MD [address] [place] [address] Takes dietary supplements Social History Tobacco Use [...] Description 02/07/2025 11:30 AM EST Office Visit [facility] MED & PEDS [address] [place] [address] Gildardo Huertas MD 505 [place] [address] 03/13/2025 10:30 AM EST Clinical Support [facility] MED & PEDS [address] [place] [address] 04/19/2025 2:15 PM EST Clinical Support [facility] MED & PEDS [address] [place] [address] Leelee Castaneda, REGINA 505 [place] [address] documented as of this encounter Visit Diagnoses Diagnosis Takes dietary supplements documented in this encounter Additional Health Concerns Assessment Noted Time PHQ-9 Depression Total Score: 10 023 2:09 PM EST documented as of this encounter Care Teams Glaciologist Relationship Specialty Start Date End Date Marii Mcmillan MD [address] [place] [address] PCP - General Family Medicine 07/11/21 Carmen Baird 01/27/25 Evelyne Green Wheel BlockerVeneer Stock Layer 12/09/23 documented as of this encounter
--- OUTSIDE RECORDS SUMMARY | 2025-02-03 16:11 | XMS_ITS ---
Author Organization [employer] Address [address] [place] [address] [address] [address] Care Team Providers Care Lineman Apprentice Name Role Phone Marii Mcmillan MD Primary Care Provider [phone] Carmen Baird Unavailable CHW Complex Status:Outreach In Progress (Enrolling) Start date:01/27/2025 Enrollment reason:ADT Feed Overview CP Assigned Patient- Pt [place] [facility] [place]. Case Team Name Relationship Phone Carmen Baird(Responsible Staff) [phone] Continued Care and Services Coordination
--- OUTSIDE RECORDS SUMMARY | 2025-02-03 16:12 | XMS_ITS | Encounter Summary ---
Author Organization [employer] Address [address] [place] [address] 7 [place] [address] Care Team Providers Care Railroad Car Cleaning Supervisor Name Role Phone Marii Mcmillan MD Primary Care Provider [phone] Carmen Baird Unavailable Reason for Referral * Imaging (STAT) - Closed Specialty Diagnoses / Procedures Referred By Justino palma Referred To Contact Radiology Diagnoses Mass of right inguinal region Procedures Us Pelvis complete Gildardo Huertas MD 505 [place] [address] Phone: tel: fax: [address] [address] Phone: tel: fax: Referral ID Status Reason Start Date Expiration Date Visits Re quested Visits Authorized [id number] Closed 09/18/2022 09/18/2023 1 1 Encounter Details Date Type Department Care Team (Late st Contact Info) Description 09/18/2022 Orders Only [facility] CHC MED & PEDS [address] [place], [place] [phone] Gildardo Huertas MD [address] [place], [place] [phone] Mass of right inguinal region (Primary Dx) [...] Team ([facility] st Contact Info) Description 02/07/2025 11:30 AM EST Office Visit [facility] MED & PEDS [address] [place] [address] Gildardo Huertas MD 505 [place] [address] 03/13/2025 10:30 AM EST Clinical Support [facility] MED & PEDS [address] [place] [address] 04/19/2025 2:15 PM EST Clinical Support [facility] MED & PEDS [address] [place] [address] Leelee Castaneda RN 505 [place] [address] Scheduled Orders Name Type Priority Associated Diagnoses [...] PM EDT Narrative 09/25/2022 10:43 AM EDT [address] [address] Ultrasound Report Signed Patient: Manuel Grimm MR#: [id number] : 1960 Acct:[id number] Age/Sex: 62 / M ADM Date: 09/18/22 Loc: HO.US Attending Dr: Marii Mcmillan MD Ordering Physician: Marii Mcmillan MD Date of Service: 09/18/22 Procedure(s): US pelvic limited Accession Number(s): [id number] cc: Marii Mcmillan MD EXAMINATION: US RIGHT [...] in OV> 09/25/22 1039 DD/ 1503 TD/TT: Contact And Service Clerks Supervisor: Procedure Note Donotuseinterpreter, Image - 09/25/[address] [address] Ultrasound Report Signed Patient: Manuel Grimm DMR#: [id number] : 1960cct:[id number] Age/Sex: 62 / MADM Date: 09/18/22 Loc: .US Attending Dr: Marii Mcmillan MD Ordering Physician: Marii Mcmillan MD Date of Service: 09/18/22 Procedure(s): US pelvic limited Accession Number(s): [id number] cc: Marii Mcmillan MD EXAMINATION: US RIGHT [...] in OV> 09/25/22 1039 DD/ 1503 TD/TT: Contact And Service Clerks Supervisor: [facility] External Provider IMG US PROCEDURES Final Result documented in this encounter Visit Diagnoses Diagnosis Mass of right inguinal region- Primary documented in this encounter Additional Health Concerns Assessment Noted Time PHQ-9 Depression Total Score: 10 023 2:09 PM EST documented as of this encounter Care Teams Railroad Car Cleaning Supervisor Relationship Specialty Start Date End Date Marii Mcmillan MD [address] [place] [address] PCP - General Family Medicine 07/11/21 Carmen Baird 01/27/25 Evelyne Green Fuel House AttendantGrinder Gear 12/09/23 documented as of this encounter
--- OUTSIDE RECORDS SUMMARY | 2025-02-03 16:12 | XMS_ITS | Encounter Summary ---
Author Organization [employer] Address [address] [facility] 7t [place] [address] Care Team Providers Care Clip Riveter Name Role Phone Marii Mcmillan MD Primary Care Provider [phone] Carmen Baird Unavailable Reason for Visit * Reason Onset Date Comments Appointment Request 08/15/2024 Encounter Details Date Type Department Care Team ([facility] Contact Info) Description 08/15/2024 Telephone [facility] MEDICINE [address] [place] [address] Marii Mcmillan MD [address] [place], [place] [phone] Appointment Request Social History Tobacco Use Types [...] EDT Tc from pt requesting to reschedule PARKS RECREATION DIRECTOR visit. Please contact pt at [phone]. documented in this encounter Plan of Treatment Upcoming Encounters Date Type Department Care Team ([facility] st Contact Info) Description 02/07/2025 11:30 AM EST Office Visit [facility] MED & PEDS [address] [place] [address] Gildardo Huertas MD 505 [place] [address] 03/13/2025 10:30 AM EST Clinical Support [facility] MED & PEDS [address] [place] [address] 04/19/2025 2:15 PM EST Clinical Support [facility] MED & PEDS [address] [place] [address] Leelee Castaneda RN 505 [place] [address] documented as of this encounter Visit Diagnoses Not on filedocumented in this encounter Additional Health Concerns Assessment Noted Time PHQ-9 Depression Total Score: 10 023 2:09 PM EST documented as of this encounter Care Teams Clip Riveter Relationship Specialty Start Date End Date Marii Mcmillan MD [address] [place] [address] PCP - General Family Medicine 07/11/21 Carmen Baird 01/27/25 Evelyne Green Credit And Collection ManagerDiesel Engine Ii Pipe Fitter 12/09/23 documented as of this encounter
--- OUTSIDE RECORDS SUMMARY | 2025-02-03 16:12 | XMS_ITS | Encounter Summary ---
Author Organization [employer] Address [address] [facility] 7t [place] [address] Care Team Providers Care Sanitary Chemist Name Role Phone Marii Mcmillan MD Primary Care Provider [phone] Carmen Baird Unavailable Encounter Details Date Type Department Care Team (Latest Contact Info) Description 02/03/2025 Travel Social History Tobacco Use Types Packs/Day [...] Description 02/07/2025 11:30 AM EST Office Visit [facility] MED & PEDS 505 [place] [address] Gildardo Huertas MD 505 [place] [address] 03/13/2025 10:30 AM EST Clinical Support [facility] MED & PEDS 505 [place] [address] 04/19/2025 2:15 PM EST Clinical Support [facility] MED & PEDS 505 [place] [address] Leelee Castaneda, REGINA 505 [place] [address] documented as of this encounter Visit Diagnoses Not on filedocumented in this encounter Additional Health Concerns Assessment Noted Time PHQ-9 Depression Total Score: 10 023 2:09 PM EST documented as of this encounter Care Teams Sanitary Chemist Relationship Specialty Start Date End Date Marii Mcmillan MD [address] [place] [address] PCP - General Family Medicine 07/11/21 Carmen Baird 01/27/25 Evelyne Green Day WorkerPier Hand Helper 12/09/23 documented as of this encounter
--- OUTSIDE RECORDS SUMMARY | 2025-02-03 16:12 | XMS_ITS | Encounter Summary ---
Author Organization [employer] Address [address] [facility] 7t [place] [address] Care Team Providers Care Production Officer Name Role Phone Marii Mcmillan MD Primary Care Provider [phone] Carmen Baird Unavailable Encounter Details Date Type Department Care Team ([facility] Contact Info) Description 08/18/2024 Orders Only [facility] CHC MED & PEDS 505 [place], [place] [phone] Nita Steen FNP 505 [place] [address] Social History Tobacco Use Types Packs/Day Years [...] Upcoming Encounters Date Type Department Care Team ([facility] st Contact Info) Description 02/07/2025 11:30 AM EST Office Visit [facility] MED & PEDS [address] [place] [address] Gildardo Huertas MD 505 [place] [address] 03/13/2025 10:30 AM EST Clinical Support [facility] MED & PEDS [address] [place] [address] 04/19/2025 2:15 PM EST Clinical Support [facility] MED & PEDS [address] [place] [address] Leelee Castaneda RN 505 [place] [address] documented as of this encounter Visit Diagnoses Not on filedocumented in this encounter Additional Health Concerns Assessment Noted Time PHQ-9 Depression Total Score: 10 023 2:09 PM EST documented as of this encounter Care Teams Production Officer Relationship Specialty Start Date End Date Marii Mcmillan MD [address] [place] [address] PCP - General Family Medicine 07/11/21 Carmen Baird 01/27/25 Evelyne Green Value Stream ManagerTwo Way Radio Installer 12/09/23 documented as of this encounter
--- OUTSIDE RECORDS SUMMARY | 2025-02-03 16:12 | XMS_ITS | Continuity of Care Document ---
Author Organization [place] [facility], [facility] Address [address] [place] [address] Care Team Providers Care Svp Monetization Name Role Phone EPSTEIN, PAULINA Primary Care Provider [phone] Assessment Encounter Date Assessment Date Assessment LastModified [...] Follow-up for next debridement in 6 months. [email or web address] Not available 12/26/2024 11:23:45 Plan of Treatment [...] Organization Details Recorded Time Chronic mastoidi tis 13119623 Active 2013 Chronic mastoidi tis; Location : right CM S Risk: low risk CMS Treatmen t: establis hed problem (to examiner ): unstable or worsenin g Condit ion: unstable Note: Date Diagnose d: 4 3:25 PM (383.1) Not Available [facility] 4 02:24:10 Impacted cerumen 88166158 Active 2014 Impacted cerumen; Note: Date Diagnose d: 5 2:25 PM (380.4) Not Available [facility] 4 02:23:45 Chronic right mastoidi tis 72751137070 Active 2015 Chronic mastoidi tis, right ear; Note: Date Diagnose d: 6 11:16 AM (H70.11) Not Available [facility] 4 02:24:01 Impacted cerumen in left ear 65909945556 Active 2015 Impacted cerumen, left ear; Note: Date Diagnose d: 6 11:10 AM (H61.22) Not Available [facility] 4 02:23:56 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; Note: Date Diagnose d: 6 11:09 AM (383.33) Not Available [facility] 4 02:24:16 Granulat ions of mastoid cavity 966839776 Completed 201510/16/2023 Granulat ion of postmast oidectom y cavity, right ear; Note: Date Diagnose d: 6 11:16 AM (H95.121 ) Not Available [facility] 4 02:23:25 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; Note: Date Diagnose d: 06/16/2023 11:02 AM (M26.623 ) SAI ROCA MD 100 [facility],[place] [address], [place], [address] , [place] - [facility] 5 11:24:03 Neck pain 28270581 Active 2023 Cervical chelsie; Note: Date Diagnose d: 06/16/2023 11:02 AM (M54.2) Not Available [facility] 4 02:24:04 Chronic neck pain 29849172322 07 Active 2023 Loren bean [place] - [facility] 4 13:58:40 Candidal otitis externa 72082697 Active 2024 SAI ROCA MD [address] [facility] [place] [address], [place], [address] , [place] - [facility] 5 16:26:46 Problem Notes None recorded. Procedures Surgical History Date Name Laterality Status Provider Name and Address Organization Details Recorded Time 5 Debridement of Mastoid Cavity right completed SAI ROCA MD [address] [facility] [place],NISA [facility], [place], [address], [place] - [facility] 12/26/2024 11:17:39 5 Debridement of Mastoid Cavity right completed FAISAL SALAS [address],[place] [facility], [place], [address], [place] - [facility] 10/21/2024 15:56:26 5 Debridement of Mastoid Cavity complex right completed SAI ROCA MD [address] [facility],[place] [address], [place], [address], [facility] - [facility] 10/04/2024 12:02:08 5 Debridement of Mastoid Cavity right completed SAI ROCA MD [address] [facility],[place] [address], [place], [address], [facility] - [facility] 06/01/2024 21:11:43 Imaging Results None recorded. Procedure Notes None recorded. Medical Equipment None Reported. Allergies Allergen ID Allergen Name Allergen Category Reaction Reaction Severity Criticality Documentation Date Start Date Code Code System Note Provider Name and Address Organization Details Recorded Time 307096 adhesive tape environme nt,medica tion Not available Not available Not available 05/31/2024 Cecelia bean [facility] 5 10:17:08 25439 Non-stero idal anti-infl ammatory agent (substanc e) medicatio n other Not available Not available 07/28/2023 58726 5008 SNOMED React ion: Unkno wn; Not Available [facility] 4 00:53:26 66636 Penicilli n Not available other Not available Not available 07/28/2023 53095 RxNorm React ion: Unkno wn; Not Available [facility] 4 00:53:42 Medications Name Sig Start Date Stop Date Status Note LastModified by Organization Details LastModified Time multivita min tablet active Medicati on ID: 066810 B rand Name: multivit eldridge Sen d [...] a day 06/02 completed Medicati on ID: 028799 D uration Value: 10 Brand Name: ofloxaci [...] TAKE 30 MINUTES PRIOR TO ARRIVAL TO [facility] 06/02 completed Not Available Not Available Not [...] as directed 06/02 completed Medicati on ID: 171094 D uration Value: 10 Brand Name: Ciprodex [...] vitamin K 06/02 completed Medicati on ID: 948088 B rand Name: vitamin k Send Method: [...] Updated DateTime 12/26/2024 165.1 cm 21.1 kg/m2 83765.23 g Cecelia Owen [place] - [facility] 12/26/2024 11:03:26 Social History Question Answer Notes LastModified by Organizat ion Details LastModified Time Tobacco Smoking Status Former Smoker SAI ROCA MD [address] [place] [address], [address], [facility] - [facility] 10/28/2023 19:37:28 When Did You Quit Smoking? 6-10yearssin celastcigare tte [email or web address] Information not available 10/28/2023 How Many Years Have You Smoked Tobacco? 45 [email or web address] Information not available 10/28/2023 Sex: Unknown Functional Status Question Answer Note LastModified by Organization D etails LastModified Time What is your level of alcohol consumption? None [email or web address] Information not available 10/28/2023 Mental Status None recorded. Family History Nothing Reported. 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 He has long-term issues with TMJ SIA ROCA MD [address] [place] [address], [place], [address], [place] - [facility] 12/26/2024 11:24:30
--- OUTSIDE RECORDS SUMMARY | 2025-02-03 16:12 | XMS_ITS | Encounter Summary ---
Author Organization [employer] Address [address] [facility] 7t [place] [address] Care Team Providers Care Capacity Planner Name Role Phone Marii Mcmillan MD Primary Care Provider [phone] Carmen Baird Unavailable Reason for Visit * Reason Onset Date Comments Med Refill 08/25/2024 Encounter Details Date Type Department Care Team ([facility] st Contact Info) Description 08/25/2024 Telephone [facility] MEDICINE [address] [place] [address] Marii Mcmillan MD [address] [place], [place] [phone] Med Refill Social History Tobacco Use Types [...] MG tablet To be sent to: [facility]/pharmacy #[id number] MARY CARIAS - [address] [facility] documented in this encounter Plan of Treatment Upcoming Encounters Date Type Department Care Team ([facility] Contact Info) Description 02/07/2025 11:30 AM EST Office Visit [facility] MED & PEDS [address] [place] [address] Gildardo Huertas MD 505 [place] [address] 03/13/2025 10:30 AM EST Clinical Support [facility] MED & PEDS [address] [place] [address] 04/19/2025 2:15 PM EST Clinical Support [facility] MED & PEDS [address] [place] [address] Leelee Castanead RN 505 [place] [address] documented as of this encounter Visit Diagnoses Not on filedocumented in this encounter Additional Health Concerns Assessment Noted Time PHQ-9 Depression Total Score: 10 023 2:09 PM EST documented as of this encounter Care Teams Capacity Planner Relationship Specialty Start Date End Date Marii Mcmillan MD [address] [place] [address] PCP - General Family Medicine 07/11/21 Carmen Baird 01/27/25 Evelyne Green Channeling Machine RunnerSlide Developer 12/09/23 documented as of this encounter
--- OUTSIDE RECORDS SUMMARY | 2025-02-03 16:12 | XMS_ITS | Encounter Summary ---
Author Organization [employer] Address [address] [facility] 7t [place] [address] Care Team Providers Care Yarn Bleaching Machine Operator Name Role Phone Marii Mcmillan MD Primary Care Provider [phone] Carmen Baird Unavailable Encounter Details Date Type Department Care Team ([facility] st Contact Info) Description 06/22/2023 Telephone [facility] MEDICINE [address] [place] [address] Marii Mcmillan MD [address] [place], [place] [phone] Social History Tobacco Use Types Packs/Day Years [...] 11:30 AM EST Office Visit [facility] MED & PEDS 505 [place] [address] Gildardo Huertas MD 505 [place] [address] 03/13/2025 10:30 AM EST Clinical Support [facility] MED & PEDS [address] [place] [address] 04/19/2025 2:15 PM EST Clinical Support [facility] MED & PEDS [address] [place] [address] Leelee Castaneda, REGINA 505 [place] [address] documented as of this encounter Visit Diagnoses Not on filedocumented in this encounter Additional Health Concerns Assessment Noted Time PHQ-9 Depression Total Score: 10 023 2:09 PM EST documented as of this encounter Care Teams Yarn Bleaching Machine Operator Relationship Specialty Start Date End Date Marii Mcmillan MD [address] [place] [address] PCP - General Family Medicine 07/11/21 Carmen Baird 01/27/25 Evelyne Green Riding Silks CustodianAccess Clinician 12/09/23 documented as of this encounter
--- OUTSIDE RECORDS SUMMARY | 2025-02-03 16:12 | XMS_ITS | Encounter Summary ---
Author Organization [employer] Address [address] [facility] 7t [place] [address] Care Team Providers Care Gravity Meter Observer Name Role Phone Marii Mcmillan MD Primary Care Provider [phone] Carmen Baird Unavailable Reason for Visit * Reason Onset Date Comments Appointment Request 01/11/2024 Encounter Details Date Type Department Care Team ([facility] Contact Info) Description 01/11/2024 Telephone [facility] MEDICINE [address] [place] [address] Marii Mcmillan MD [address] [place], [place] [phone] Appointment Request Social History Tobacco Use Types [...] encounter Miscellaneous Notes * Telephone Encounter - Hermiloaron Lopez - 01/11/2024 10:23 AM EDT Tc from pt calling in regards to tomorrows LAWN CARE PROFESSIONAL visit stating he is feeling sick and is wondering ifhe can change appt to a telephone visit. Please contact pt at [phone]. documented in this encounter Plan of Treatment Upcoming Encounters Date Type Department Care Team ([facility] st Contact Info) Description 02/07/2025 11:30 AM EST Office Visit [facility] MED & PEDS [address] [place] [address] Gildardo Huertas MD 505 [place] [address] 03/13/2025 10:30 AM EST Clinical Support [facility] MED & PEDS [address] [place] [address] 04/19/2025 2:15 PM EST Clinical Support [facility] MED & PEDS [address] [place] [address] Leelee Castaneda RN 505 [place] [address] documented as of this encounter Visit Diagnoses Not on filedocumented in this encounter Additional Health Concerns Assessment Noted Time PHQ-9 Depression Total Score: 10 023 2:09 PM EST documented as of this encounter Care Teams Gravity Meter Observer Relationship Specialty Start Date End Date Marii Mcmillan MD [address] [place] [address] PCP - General Family Medicine 07/11/21 Carmen Baird 01/27/25 Evelyne Green Cad OperatorSenior Android Software Engineer 12/09/23 documented as of this encounter
--- OUTSIDE RECORDS SUMMARY | 2025-02-03 16:12 | XMS_ITS | Encounter Summary ---
Author Organization [employer] Address 75 [facility] 7t [place] [address] Care Team Providers Care Wardrobe Stylist Name Role Phone Marii Mcmillan MD Primary Care Provider [phone] Carmen Baird Unavailable Reason for Visit * Reason Onset Date Comments Med Change Request 11/04/2023 Encounter Details Date Type Department Care Team ([facility] st Contact Info) Description 11/04/2023 Telephone [facility] MEDICINE [address] [place] [address] Marii Mcmillan MD 505 [place], [place] [id number] Med Change Request Social History Tobacco Use [...] Description 02/07/2025 11:30 AM EST Office Visit [facility] MED & PEDS 505 [place] [address] Gildardo Huertas MD 505 [place] [address] 03/13/2025 10:30 AM EST Clinical Support [facility] MED & PEDS [address] [place] [address] 04/19/2025 2:15 PM EST Clinical Support [facility] MED & PEDS [address] [place] [address] Leelee Castaneda RN 505 [place] [address] documented as of this encounter Visit Diagnoses Not on filedocumented in this encounter Additional Health Concerns Assessment Noted Time PHQ-9 Depression Total Score: 10 023 2:09 PM EST documented as of this encounter Care Teams Wardrobe Stylist Relationship Specialty Start Date End Date Marii Mcmillan MD [address] [place] [address] PCP - General Family Medicine 07/11/21 Carmen Baird 01/27/25 Evelyne Green Shotblast Equipment OperatorDrag Seiner 12/09/23 documented as of this encounter
--- OUTSIDE RECORDS SUMMARY | 2025-02-03 16:12 | XMS_ITS | Encounter Summary ---
Author Organization [employer] Address 75 [facility] 7t [place] [address] Care Team Providers Care Cobol Mainframe Developer Name Role Phone Marii Mcmillan MD Primary Care Provider [phone] Carmen Baird Unavailable Reason for Visit * Reason Onset Date Comments Med Refill 01/28/2024 Encounter Details Date Type Department Care Team ([facility] st Contact Info) Description 01/28/2024 Telephone [facility] MEDICINE [address] [place] [address] Marii Mcmillan MD 505 [place], [place] [phone] Med Refill Social History Tobacco Use Types [...] 5-325 MG tablet To be sent to: [facility]/pharmacy #[id number] - MARY CARIAS [address] documented in this encounter Plan of Treatment Upcoming Encounters Date Type Department Care Team ([facility] st Contact Info) Description 02/07/2025 11:30 AM EST Office Visit [facility] MED & PEDS [address] [place] [address] Gildardo Huertas MD 505 [place] [address] 03/13/2025 10:30 AM EST Clinical Support [facility] MED & PEDS 505 [place] [address] 04/19/2025 2:15 PM EST Clinical Support [facility] MED & PEDS 505 [place] [address] Leelee Castaneda, RN 505 [place] [address] documented as of this encounter Visit Diagnoses Not on filedocumented in this encounter Additional Health Concerns Assessment Noted Time PHQ-9 Depression Total Score: 10 023 2:09 PM EST documented as of this encounter Care Teams Cobol Mainframe Developer Relationship Specialty Start Date End Date Marii Mcmillan MD [address] [place] [address] PCP - General Family Medicine 07/11/21 Carmen Baird 01/27/25 Evelyne Green Cable Splicer HelperConcrete Boom Operator 12/09/23 documented as of this encounter
--- OUTSIDE RECORDS SUMMARY | 2025-02-03 16:12 | XMS_ITS | Encounter Summary ---
Author Organization [employer] Address 75 [facility] 7t [place] [address] Care Team Providers Care Oil Burner Servicer And Installer Name Role Phone Marii Mcmillan MD Primary Care Provider Carmen Baird Unavailable Encounter Details Date Type Department Care Team (Latest Contact Info) Description 02/02/2025 Travel Social History Tobacco Use Types Packs/Day [...] Description 02/07/2025 11:30 AM EST Office Visit [facility] MED & PEDS [address] [place] [address] Gildardo Huertas MD 505 [place] [address] 03/13/2025 10:30 AM EST Clinical Support [facility] MED & PEDS [address] [place] [address] 04/19/2025 2:15 PM EST Clinical Support [facility] MED & PEDS [address] [place] [address] Leelee Castaneda, REGINA 505 [place] [address] documented as of this encounter Visit Diagnoses Not on filedocumented in this encounter Additional Health Concerns Assessment Noted Time PHQ-9 Depression Total Score: 10 023 2:09 PM EST documented as of this encounter Care Teams Oil Burner Servicer And Installer Relationship Specialty Start Date End Date Marii Mcmillan MD 230 [place] [address] PCP - General Family Medicine 07/11/21 Carmen Baird 01/27/25 Evelyne Green Sandblast CarverRating Examiner 12/09/23 documented as of this encounter
--- OUTSIDE RECORDS SUMMARY | 2025-02-03 16:12 | XMS_ITS | Encounter Summary ---
Author Organization [employer] Address 75 [facility] 7t [place] [address] Care Team Providers Care Configuration Management Advisor Name Role Phone Marii Mcmillan MD Primary Care Provider [phone] Carmen Baird Unavailable Encounter Details Date Type Department Care Team (Latest Contact Info) Description 01/30/2025 Travel Social History Tobacco Use Types Packs/Day [...] AM EST Office Visit [facility] MED & PEDS 505 [place] [address] Gildardo Huertas MD 505 [place] [address] 03/13/2025 10:30 AM EST Clinical Support [facility] MED & PEDS 505 [place] [address] 04/19/2025 2:15 PM EST Clinical Support [facility] MED & PEDS [address] [place] [address] Leelee Castaneda, REGINA 505 [place] [address] documented as of this encounter Visit Diagnoses Not on filedocumented in this encounter Additional Health Concerns Assessment Noted Time PHQ-9 Depression Total Score: 10 023 2:09 PM EST documented as of this encounter Care Teams Configuration Management Advisor Relationship Specialty Start Date End Date Marii Mcmillan MD 230 [place] [address] PCP - General Family Medicine 07/11/21 Carmen Baird 01/27/25 Evelyne Green Economic ConsultantJewelry Sales Representative 12/09/23 documented as of this encounter
--- OUTSIDE RECORDS SUMMARY | 2025-02-03 16:12 | XMS_ITS | Encounter Summary ---
Author Organization [employer] Address 75 [facility] 7t [place] [address] Care Team Providers Care Business Quality Assurance Analyst Name Role Phone Marii Mcmillan MD Primary Care Provider [phone] Carmen Baird Unavailable Reason for Visit * Reason Onset Date Comments CHART PREP 01/26/2024 Encounter Details Date Type Department Care Team ([facility] Contact Info) Description 01/26/2024 Telephone [facility] MED & PEDS [address] [place] [address] Marii Mcmillan MD 505 [place] [address] CHART PREP Social History Tobacco Use Types [...] Description 02/07/2025 11:30 AM EST Office Visit [facility] MED & PEDS [address] [place] [address] Gildardo Huertas MD 505 [place] [address] 03/13/2025 10:30 AM EST Clinical Support [facility] MED & PEDS [address] [place] [address] 04/19/2025 2:15 PM EST Clinical Support [facility] MED & PEDS [address] [place] [address] Leelee Castaneda, REGINA 505 [place] [address] documented as of this encounter Visit Diagnoses Diagnosis Polyarthralgia Pain in joint, multiple sites documented in this encounter Additional Health Concerns Assessment Noted Time PHQ-9 Depression Total Score: 023 2:09 PM EST documented as of this encounter Care Teams Business Quality Assurance Analyst Relationship Specialty Start Date End Date Marii Mcmillan MD 230 [place] [address] PCP - General Family Medicine 07/11/21 Carmen Baird 01/27/25 Evelyne Green Collateral ClerkOptical Effects Layout Person 12/09/23 documented as of this encounter
--- OUTSIDE RECORDS SUMMARY | 2025-02-03 16:12 | XMS_ITS | Encounter Summary ---
Author Organization [employer] Address 75 [facility] 7t [place] [address] Care Team Providers Care Journeyman Pressman Name Role Phone Marii Mcmillan MD Primary Care Provider [phone] Carmen Baird Unavailable Reason for Visit * Reason Onset Date Comments Referral 01/31/2025 Encounter Details Date Type Department Care Team ([facility] st Contact Info) Description 01/31/2025 Telephone [facility] MEDICINE [address] [place] [address] Marii Mcmillan MD [address] [place] [address] Referral Social History Tobacco Use Types Packs/Day [...] encounter Miscellaneous Notes * Telephone Encounter - Cindy Woods RN - 01/31/2025 4:36 PM EST Called pt regarding message, spoke to pt. Pt denies any need for referral to ENT at this time. Pt is seen by ENT on [facility] for post op complications and was last seen on 01/13. Pt will check with the office and call back if anything else needed. * Telephone Encounter - Nadine Sierra - 01/31/2025 2:39 PM EST TC from pt requesting new referral : [facility]: [facility]03 to 11/03/2025 TIME: / Address: [facility] Franko stringer springfiled Visits: 6 Facility Name: [facility] Type of Specialist: / DX: [id number] Provider : Dr. Brooks Provider NPI : Facility Phone # : [phone] Fax #: [phone] Mcmillan documented in this encounter Plan of Treatment Upcoming Encounters Date Type Department Care Team (Late st Contact Info) Description 02/07/2025 11:30 AM EST Office Visit [facility] MED & PEDS 505 [place] [address] Gildardo Huertas MD 505 [place] [address] 03/13/2025 10:30 AM EST Clinical Support [facility] MED & PEDS [address] [place] [address] 04/19/2025 2:15 PM EST Clinical Support [facility] MED & PEDS 505 [place] [address] Leelee Castaneda, REGINA 505 [place] [address] documented as of this encounter Visit Diagnoses Not on filedocumented in this encounter Additional Health Concerns Assessment Noted Time PHQ-9 Depression Total Score: 10 023 2:09 PM EST documented as of this encounter Care Teams Journeyman Pressman Relationship Specialty Start Date End Date Marii Mcmillan MD [address] [place] [address] PCP - General Family Medicine 07/11/21 Carmen Baird 01/27/25 Evelyne Green Supply AnalystSupervisor Printing And Stamping 12/09/23 documented as of this encounter
[2025-02-03 18:58] LABS: Cholesterol 169 mg/dL (<200); HDL Cholesterol 57 mg/dL (>40); Triglycerides 57 mg/dL (<150)
== END 2025-02-03 16:01 | disposition home or self-care (01) ==
LOC: HO.CHCLDS 16:00
PROVIDERS: Visit Provider Family Medicine
DX: E78.5 Hyperlipidemia, unspecified (principal)
CPT/HCPCS: 36415; 80061

== ENCOUNTER 2025-02-13 11:53 | Outpatient (AMB) | payer MEDICAID, SELFPAY ==
--- NOTE | 2025-02-13 12:22 | A.OFFVIS_ITS ---
Vital Signs 02/13/25 12:25 Height 5 ft 6 in Weight 125 lb BMI 20.2 BP 132/88 Blood Pressure Location Lt brachial Position Sitting Pulse 84 Pulse Oximetry (%) 96 Oxygen Delivery Method Room Air Intake Visit Reasons: discuss having a colo Intake Note: Patient follow up for Colonoscopy discussion. Patient cc: constipation and hard time to swallowing and patient wanted to do a bx for his Cirrhosis. Marketing Finance Specialist Required: No Accompanied by: Family/Other Allergies aspirin (ASA) Allergy (Severe, Verified 02/13/25 12:21) told to not take due to beeding NSAIDS (Non-Steroidal Anti-Inflamma Allergy (Severe, Verified 02/13/25 12:21) advised not to take due to bleeding Penicillins (PENICILLINS) Allergy (Severe, Verified 02/13/25 12:21) Rash, hives codeine Allergy (Intermediate, Verified 02/13/25 12:21) Rash naproxen (NAPROXEN) Allergy (Intermediate, Verified 02/13/25 12:21) Abdominal Pain tuberculin, purified protein deriva (TB TEST) Allergy (Intermediate, Verified 02/13/25 12:21) hx TB as a child acetaminophen (From TYLENOL) Adverse Reaction (Intermediate, Verified 02/13/25 12:21) cannot take due to cirrhosis dx mesalamine (From ASACOL) Adverse Reaction (Intermediate, Verified 02/13/25 12:21) worsening abdominal pain pseudoephedrine (From SUDAFED) Adverse Reaction (Unknown, Verified 02/13/25 12:21) advised not to take-glaucoma dx HPI HPI discuss having a colo: Details: 63 yr old m wih cirrhosis called for assessment RECAP: He had hx of hep C cured with interferon in the past Labs: mild low plt, normal INR< nml LFT< HERNANDO elevated, Hep C ab pos INTERIM: He is recovering from right leg cellulitis, he does bleed easily -he has mild thrombocytopenia no nausea or vomiting no diarrhea or constipation EXAM: GENERAL: The patient is well developed and nontoxic. VITAL SIGNS:see workflow HEENT: Nonicteric sclerae, PERRLA, EOMI. Oropharynx clear. Moist mucous membranes. Conjunctivae appear well perfused. No thyroid mass. CHEST: Chest wall is nontender. HEART: Regular rate and rhythm without murmurs. LUNGS: Clear to auscultation bilaterally. ABDOMEN: Soft, positive bowel sounds, nontender, no organomegaly.no flank tenderness SKIN: No rash, no excessive bruising, petechiae, or purpura. NEUROLOGIC: Cranial nerves II-XII intact without motor/sensory deficit. Psych: normal affect A/P: 1/ compensated cirrhosis, h of Hep C with interferon treatment in past, MELD 3.0 is only 6, no ascites on imaging last year -- PLAN: 1/ repeat US for HCC screening 2/ EGD, he has low risk for significant varices at this time but was seen on CT recently 3/ colonoscopy with suprep 4/ cont zn, PFSH Medical History Cataracts, bilateral Wears dentures Legally blind in left eye, as defined in [place] Deafness in right ear Arthritis Back pain Hx of hepatitis C Hx of tuberculosis PTSD (post-traumatic stress disorder) COPD (chronic obstructive pulmonary disease) Asthma Left bundle branch block (LBBB) Thrombocytopenia Afib Glaucoma Hypertension Anxiety Depression Cirrhosis Surgical History H/O colonoscopy Hx of hernia repair History of tooth extraction (~2002) History of cardiac catheterization (~2009) History of ear surgery (~1990) History of cholecystectomy (~2009) H/O abdominal surgery S/P LASIK surgery of both eyes Family History Mother Breast cancer Rheumatoid arthritis Social History Household Members: Friend(s) Household Members Other:: niece, adult Housing: House Are you a primary urgent care physician to a significant other at home: No Do you presently have visiting nurse or other home services: No 75 years or older and lives alone: No Patient Tobacco Use Status: Former Tobacco user Tobacco use type: Cigarette Years Smoked: quit age 57 Second Hand Smoke Exposure: Yes Substance Use Type: Marijuana service: No Current occupational status: disabled Physical Exam Vital Signs: Last Vital Signs Pulse 84 02/13/25 12:25 BP 132/88 02/13/25 12:25 Pulse Ox 96 02/13/25 12:25 Oxygen Delivery Method Room Air 02/13/25 12:25 BMI result Body Mass Index 20.2 Assessment & Plan Assessment & Plan (1) Cirrhosis: Comment: treated for Hep C Code(s): K74.60 - Unspecified cirrhosis of liver Category: Medical Plan: as above Orders: Orders US abdomen [place] w elastography Today K74.69 - Other cirrhosis of liver, K75.81 - Nonalcoholic steatohepatitis (JAEGER) Referrals GI Procedure Notification K74.60 - Unspecified cirrhosis of liver Medications: New sodium,potassium,mag sulfates 17.5-3.13-1.6 gram (Suprep Bowel Prep Kit) DILUTE; drink 1/2 at 6-8 pm and half at 11 PM- 1AM 354 mL 0RF zinc acetate (Galzin) 50 mg PO DAILY 90 caps 0RF Coding Level of Care Code Est Pt Level 4 (47369) Diagnoses Cirrhosis K74.60
[2025-02-13 12:25] VITALS: BP 132/88; PULSE 84; O2SAT 96; BMI 20.2
--- OUTSIDE RECORDS SUMMARY | 2025-02-13 15:42 | XMS_ITS | Encounter Summary ---
Author Organization [employer] Address [address] [place] [address] 7t [place] [address] Care Team Providers Care Event Organizer Name Role Phone Marii Mcmillan MD Primary Care Provider [phone] Carmen Baird Unavailable Reason for Visit * Reason Comments Med Refill Encounter Details Date Type Department Care Team (Late Contact Info) Description 04/08/2022 Refill [facility] MED & PEDS [address] [place] [address] Marii Mcmillan MD 505 [place] [address] Vitamin deficiency, unspecified Social History Tobacco Use [...] Department Care Team (Late Contact Info) Description 02/14/2025 1:00 PM EST Clinical Support [facility] MED & PEDS [address] [place] [address] 03/13/2025 10:30 AM EST Clinical Support [facility] MED & PEDS [address] [place] [address] 04/19/2025 2:15 PM EST Clinical Support [facility] MED & PEDS [address] [place] [address] Leelee Castaneda, RN 505 [place] [address] documented as of this encounter Visit Diagnoses Diagnosis Vitamin deficiency, unspecified documented in this encounter Care Teams Event Organizer Relationship Specialty Start Date End Date Marii Mcmillan MD [address] [place] [address] PCP - General Family Medicine 07/11/21 Carmen Baird 01/27/25 Evelyne Green Hash SlingerResaw Tailer 12/09/23 documented as of this encounter
--- OUTSIDE RECORDS SUMMARY | 2025-02-13 15:42 | XMS_ITS | Encounter Summary ---
Author Organization [employer] Address [address] [place] [address] 7t [place] [address] Care Team Providers Care Pension Adviser Name Role Phone Marii Mcmillan MD Primary Care Provider [phone] Carmen Baird Unavailable Reason for Visit * Reason Onset Date Comments Referral 05/20/2022 Encounter Details Date Type Department Care Team ([facility] Contact Info) Description 05/20/2022 Telephone [facility] MED & PEDS [address] [place] [address] Marii Mcmillan MD [address] [place] [address] Referral Social History Tobacco Use Types Packs/Day [...] made on 02/04/2022. Please contact pt at [phone] documented in this encounter Plan of Treatment Upcoming Encounters Date Type Department Care Team (Late st Contact Info) Description 02/14/2025 1:00 PM EST Clinical Support [facility] MED & PEDS [address] [place] [address] 03/13/2025 10:30 AM EST Clinical Support [facility] MED & PEDS [address] [place] [address] 04/19/2025 2:15 PM EST Clinical Support [facility] MED & PEDS [address] [place] [address] Leelee Castaneda, RN [address] [place] [address] documented as of this encounter Visit Diagnoses Not on filedocumented in this encounter Care Teams Pension Adviser Relationship Specialty Start Date End Date Marii Mcmillan MD [address] [place] [address] PCP - General Family Medicine 07/11/21 Carmen Baird 01/27/25 Evelyne Green Scientific LinguistSign Builder Supervisor 12/09/23 documented as of this encounter
--- OUTSIDE RECORDS SUMMARY | 2025-02-13 15:42 | XMS_ITS | Encounter Summary ---
Author Organization [employer] Address [address] [place] [address] 7t [place] [address] Care Team Providers Care Single Stayer Operator Name Role Phone Marii Mcmillan MD Primary Care Provider [phone] Carmen Baird Unavailable Reason for Visit * Reason Comments Med Change Request Encounter Details Date Type Department Care Team ([facility] Contact Info) Description 05/29/2022 Refill [facility] CHC MED & PEDS [address] [place] [address] Marii Mcmillan MD 505 [place] [address] Takes dietary supplements Social History Tobacco Use [...] Description 02/14/2025 1:00 PM EST Clinical Support [facility] MED & PEDS [address] [place] [address] 03/13/2025 10:30 AM EST Clinical Support [facility] MED & PEDS [address] [place] [address] 04/19/2025 2:15 PM EST Clinical Support [facility] MED & PEDS [address] [place] [address] Leelee Castaneda, RN 505 [place] [address] documented as of this encounter Visit Diagnoses Diagnosis Takes dietary supplements documented in this encounter Additional Health Concerns Assessment Noted Time PHQ-9 Depression Total Score: 10 023 2:09 PM EST documented as of this encounter Care Teams Single Stayer Operator Relationship Specialty Start Date End Date Marii Mcmillan MD [address] [place] [address] PCP - General Family Medicine 07/11/21 Carmen Baird 01/27/25 Evelyne Green Gear Coding Machine OperatorPie Icer Machine 12/09/23 documented as of this encounter
--- OUTSIDE RECORDS SUMMARY | 2025-02-13 15:42 | XMS_ITS ---
Author Organization [employer] Address [address] [place] [address] [address], [place] [address] Care Team Providers Care Lime Kiln Tender Name Role Phone Marii Mcmillan MD Primary Care Provider [phone] Carmen Baird Unavailable CH[facility] Complex Status:Outreach In Progress (Enrolling) Start date:01/27/2025 Enrollment reason:ADT Feed Overview CP Assigned Patient- Pt went to [facility] ED on 01/26/25. Case Team Name Relationship Phone Carmen Baird(Responsible Staff) [phone] Continued Care and Services Coordination
--- OUTSIDE RECORDS SUMMARY | 2025-02-13 15:42 | XMS_ITS | Encounter Summary ---
Author Organization [employer] Address [address] [place] [address] 7t [place] [address] Care Team Providers Care Consulting Systems Engineer Name Role Phone Marii Mcmillan MD Primary Care Provider [phone] Carmen Baird Unavailable Reason for Visit * Reason Comments Med Change Request Encounter Details Date Type Department Care Team ([facility] Contact Info) Description 05/27/2022 Refill [facility] CHC MED & PEDS [address] [place] [address] Marii Mcmillan MD 505 [place] [address] Takes dietary supplements Social History Tobacco Use [...] Description 02/14/2025 1:00 PM EST Clinical Support [facility] MED & PEDS [address] [place] [address] 03/13/2025 10:30 AM EST Clinical Support [facility] MED & PEDS [address] [place] [address] 04/19/2025 2:15 PM EST Clinical Support [facility] MED & PEDS [address] [place] [address] Leelee Castaneda, RN [address] [place] [address] documented as of this encounter Visit Diagnoses Diagnosis Takes dietary supplements documented in this encounter Additional Health Concerns Assessment Noted Time PHQ-9 Depression Total Score: 10 023 2:09 PM EST documented as of this encounter Care Teams Consulting Systems Engineer Relationship Specialty Start Date End Date Marii Mcmillan MD [address] [place] [address] PCP - General Family Medicine 07/11/21 Carmen Baird 01/27/25 Evelyne Green Radio Interference InvestigatorIt Application Support Analyst 12/09/23 documented as of this encounter
--- OUTSIDE RECORDS SUMMARY | 2025-02-13 15:42 | XMS_ITS | Clinical Summary ---
Author Organization [facility] Address [address] [place] [address] [address] [place] [address] Care Team Providers Care Lumber Straightened Name Role Phone Marii Mcmillan MD Primary Care Provider [phone] Carmen Baird Unavailable Allergies Active Allergy Reactions [...] by mouth Once per day. 5 tablet Active clotrimazole-beta methasone (Lotrisone) cream Apply topically 2 times daily for 28 days. 60 g 3 025 2024 Active atorvastatin (Lipitor) 40 MG tabletIndications [...] he has had prior cardiac catheterizations in [facility] as well as [place] but more than 10-15 years ago. Patient [...] and was normal. Plan to schedule with [facility] History of cardiac arrhythmia 08/05/2024 Assessment & Plan (08/05/2024 7:53 PM EDT): - Reports previous cardiac cath at [facility] > 10 years ago. No remarkable findings. - May 2024 consult note from [facility] Cards: Echo with LVEF 59% Myocardial perfusion [...] Plan (08/05/2024 7:42 PM EDT): Following with [facility] - Dr. Pratt Per last consult [...] Plan (08/05/2024 7:47 PM EDT): Following with [facility] Ortho, plan for right TKA Before proceeding with surgery, would like to r/o obstruction in RLE. Order for US placed July 2024. Assessment & Plan (01/29/2024 1:37 AM EST): Pt is still experiencing pain. Relevant orders: Referral to Orthopaedic Surgery Assessment & Plan (07/07/2023 3:56 PM EDT): claim benefit specialist will further monitor hip pain. Assessment & Plan (04/21/2023 1:34 PM EST): Patient with Hx of Hip Arthritis stated that medications are not improving hip pain. Therefore, will discontinue prior medications, and will be prescribing Oxycodone. Recommended to follow up with an in-person visit. Assessment & Plan (02/26/2023 3:51 PM EST): Patient that [facility] compplaints of R Hip Pain will [...] mother with Rheumatoid arthritis - Consult at [facility] Rheum in May 2022 with plan for [...] organization. Date Type Department Care Team Description 02/13/2025 Telephone [facility] [address] [place] [address] Marii Mcmillan MD Med Refill 02/07/2025 11:30 AM EST Office Visit [facility] [address] [place] [address] Gildardo Huertas MD Localized swelling of right lower extremity (Primary Dx) 02/07/2025 Travel 02/06/[address] [address] Marii Mcmillan MD script missing 02/03/2025 2:15 PM EST Office Visit [facility] [address] [place] [address] Marii Mcmillan MD Localized swelling of right lower extremity (Primary Dx); Hyperlipidemia, unspecified hyperlipidemia type 02/03/2025 Travel 02/02/2025 Travel 01/31/[address] [address] Marii Mcmillan MD Referral 01/30/2025 1:00 PM EST Telemedicine [facility] [address] [place] [address] Leelee Castaneda RN Chronic low back pain, unspecified back pain laterality, unspecified whether sciatica present 01/30/2025 Travel 01/27/2025 Patient Outreach [facility] [address] [place] [address] Marii Mcmillan MD Care Coordination (CP Care Coordination Chart Review) 01/27/2025 Travel 01/27/2025 Patient Outreach [facility] [address] [place] [address] Marii Mcmillan MD Care Coordination ([facility] ED Follow Up) 01/27/[address] [address] Marii Mcmillan MD Nurse Triage 01/27/2025 Patient Outreach [facility] [address] [place] [address] Marii Mcmillan MD 01/26/2025 Refill [facility] [address] [place] [address] Leelee Castaneda RN 01/26/2025 Orders Only GENERIC EXTERNAL DATA DEPARTMENT Provider, Generic External Data 01/25/2025 Refill [facility] [address] [place] [address] Nita Steen FNP 01/25/2025 Telephone [facility] [address] [place] [address] Marii Mcmillan MD Prior Auth Prescription 01/18/2025 Telephone [facility] [address] [place] [address] Marii Mcmillan MD Medication Question 12/27/2024 Refill [facility] [address] [place] [address] Marii Mcmillan MD Right hip pain 12/20/2024 Telephone [facility] [address] [place] [address] Marii Mcmillan MD Call Back Request 12/09/2024 Refill [facility] [address] [place] [address] Marii Mcmillan MD 11/28/2024 Refill [facility] [address] [place] [address] Marii Mcmillan MD Right hip pain (Primary Dx) from Last 3 Months Immunizations Immunization Administration [...] Sign Reading Time Taken Comments Blood Pressure 121/72 02/07/2025 11:52 AM EST Pulse 85 02/07/2025 11:52 AM EST Temperature 36.8 C (98.2 F) 02/03/2025 2:39 PM EST Respiratory Rate 21 02/07/2025 11:52 AM EST Oxygen Saturation 97% 02/07/2025 11:52 AM EST Inhaled Oxygen Concentration - - Weight 56.7 kg (125 lb) 02/07/2025 11:52 AM EST Height 172.1 cm (5' 7.75 ) 02/07/2025 11:[address] Body Mass Index 19.15 02/07/2025 11:52 AM EST Plan of Treatment Upcoming Encounters Date Type Department Care Team (Late st Contact Info) Description 02/14/2025 1:00 PM EST Clinical Support [facility] [address] [place] [address] 03/13/2025 10:30 AM EST Clinical Support [facility] [address] [place] [address] 04/19/2025 2:15 PM EST Clinical Support [facility] [address] [place] [address] Leelee Castaneda, RN [address] [place] [address] Health Maintenance Due Date Last Done Comments [...] 08/05/2024 Disability Screening 11/08/2025 11/08/2024 Tobacco Screening 02/07/2026 02/07/2025 Lipid Panel 02/03/2030 02/03/2025, 08/12/2024, 07/26/2021 DTaP/Tdap/Td Vaccines (2 - T [...] Procedure Name Priority Date/Time Associated Diagnosis Comments GENERAL Routine 02/07/2025 12:19 PM EST Localized swelling of right lower extremity LIPID PANEL, STANDARD Routine 02/03/2025 4:01 PM EST Hyperlipidemia, unspecified hyperlipidemia type CT ABDOMEN PELVIS W CONTRAST Routine 01/26/2025 7:13 PM EST US VENOUS DUPLEX LE RT Routine 01/26/2025 12:55 PM EST XR TIBIA FIBULA 2 VIEWS RIGHT Routine 01/26/2025 12:04 PM EST CREATINE KINASE, TOTAL Routine 01/26/2025 12:00 PM EST SED RATE BY MODIFIED WESTERGREN Routine 01/26/2025 12:00 PM EST C-REACTIVE PROTEIN Routine 01/26/2025 12 :00 PM EST COMPREHENSIVE METABOLIC PANEL Routine 01/26/2025 12:00 PM EST APTT Routine 01/26/2025 12:00 PM EST PROTHROMBIN TIME-INR Routine 01/26/2025 12:00 PM EST CBC WITH AUTO DIFFERENTIAL Routine 01/26/2025 12:00 PM EST HIV 1/2 ANTIGEN/ANTIBODY, FOURTH GENERATION W/RFL Routine 08/12/2024 1:59 PM EDT Healthcare maintenance Encounter for routine history and physical examination of adult from Last 3 Months or Most Recently Relevant to Health Maintenance Results * General (02/07/2025 12:19 PM EST) Narrative Gildardo Huertas MD - 02/07/2025 12:19 PM EST Gildardo Huertas MD 02/07/2025 12:23 PM General Date/Time: 02/07/2025 12:19 PM Performed by: Gildardo Huertas MD Authorized by: Gildardo Huertas MD Consent: Consent obtained: Verbal Consent given by: Patient Procedure risks and benefits discussed: Yes Patient questions answered: No Patient agrees, verbalizes understanding, and wants to proceed: No Educational handouts given: No Instructions and paperwork completed: Yes Salol protocol: Procedure explained and questions answered to patient or proxy's satisfaction: yes Relevant documents present and verified: no Test results available: no Imaging studies available: no Required blood products, implants, devices, and special equipment available: no Site/side marked: no Immediately prior to procedure, a time out was called: yes Patient identity confirmed: Verbally with patient Indications: Indications: Venous insufficiency Procedure specific details: Unna boot applied after application of triamcinolone ointment 0.1% Lot [id number], Exp Dec 10. us Gildardo Huertas MD IN CLINIC/BEDSIDE ORDERABLE S Final Result * (ABNORMAL) Lipid Panel, Standard (02/03/2025 4:01 PM EST) Triglycerides 57 <150 mg/dL [facility] Comment:Desirable Triglyceri de: less than 150 mg/dLBorderline High Triglyceride 150-199 mg/dLHigh Triglyceride: 200-499 mg/dLVery High Triglyceride: greater than or equal to 5OO mg/dL Cholesterol 169 <200 mg/dL [facility] Comment:Desirable Cholestero l: less than 200 mg/dLBorderline High Cholesterol: 200-239 mg/dLHigh Cholesterol: greater than 239 mg/dL LDL Cholesterol Calculated 101(H) <100 mg/dL [facility] Comment:Desirable LDL: less than 100 mg/dLNear Optimal/Above Optimal LDL: 110- 129 mg/dLBorderline High LDL: 130-159 mg/dLHigh LDL: 160-189 mg/dLVery High LDL: greater than or equal to 190 mg/dL HDL Cholesterol 57 >40 mg/dL [facility] Comment:Desirable HDL: great er than 40 mg/dL Note: This HDL assay may give artificially low results in patients with liver disease. Blood Venous blood specimen / Unknown 02/03/2025 4:01 PM EST 02/03/2025 6:29 PM EST us Marii Mcmillan MD LAB BLOOD ORDERABLES Final Re sult Performing Organization Address City/State/[facility] Co de Phone Number [facility] [address] [place] [address] [phone] * CT Abdomen Pelvis w/ Contrast (01/26/2025 7:13 PM EST) Anatomical Region Laterality Modality Body, Pelvis, Abdomen Computed T omography 01/26/2025 7:13 PM EST Narrative 01/26/2025 7:14 PM EST [place] [address] CT Scan Report Signed Patient: Manuel Grimm MR#: [id number] : 1960 Acct:[id number] Age/Sex: 64 / M ADM Date: 01/26/25 Loc: .ED Attending Dr: Ordering Physician: Audrey Mcdowell MD Date of Service: 01/26/25 Procedure(s): CT abdomen pelvis w IV con Accession Number(s): [id number] cc: Audrey Mcdowell MD; Marii Mcmillan MD Report Number: [id number]: Total DLP = 326.00 mGy-cm Reason for Exam: right groin pain CLINICAL HISTORY: right groin pain CT abdomen and pelvis with contrast Comparison: US/RI/SR - US ABDOMEN LIMITED WITH LIVER ELASTOGRAPHY [...] in OV> 01/26/251913 DD/ 12 TD/TT: 01/26/251912 Geophysical Party Chief: Procedure Note Donotuseinterpreter, Image - 01/26/[address] [place] [address] [address] Scan Report Signed Patient: Manuel Grimm [facility]#: [id number] : 1Acct:[id number] Age/Sex: 64 / MADM Date: 01/26/25 Loc: HO.ED Attending Dr: Ordering Physician: Audrey Mcdowell MD Date of Service: 01/26/25 Procedure(s): CT abdomen pelvis w IV con Accession Number(s): [id number] cc: Audrey Mcdowell MD; Marii Mcmillan MD Report Number: [id number]: Total DLP = 326.00 mGy-cm Reason for Exam: right groin pain CLINICAL HISTORY: right groin pain CT abdomen and pelvis with contrast Comparison: US/RI/SR - US ABDOMEN LIMITED WITH LIVER ELASTOGRAPHY [...] in OV> 01/26/251913 DD/ 12 TD/TT: 01/26/251912 Geophysical Party Chief: [facility] External Provider IMG CT PROCEDURES Final Result * US VENOUS DUPLEX LE RT (01/26/2025 12:55 PM EST) Anatomical Region Laterality Modality Abdomen Ultrasound 01/26/2025 12:5 5 PM EST Narrative 01/26/2025 1:25 PM EST [address] [address] Ultrasound Report Signed Patient: Manuel Grimm MR#: [id number] : 1960 Acct:[id number] Age/Sex: 64 / M ADM Date: 01/26/25 Loc: HO.ED Attending Dr: Ordering Physician: Miguel Ángel Rene Date of Service: 01/26/25 Procedure(s): US venous duplex LE RT Accession Number(s): [id number] cc: Miguel Ángel Rene; Marii Mcmillan MD [...] by: William Lau MD 01/26/2025 01:22 PM [facility] Dictated By: William Lau MD Signed By: <Electronically signed by William Lau MD in OV> 01/26/25 1322 DD/ 1255 TD/TT: 01/26/25 1305 Geophysical Party Chief: Procedure Note Donotuseinterpreter, Image - 01/26/2025 [place] [address] Ultrasound Report Signed Patient: Manuel Grimm DMR#: [id number] : 1Acct:[id number] Age/Sex: 64 / MADM Date: 01/26/25 Loc: .ED Attending Dr: Ordering Physician: Miguel Ángel Rene Date of Service: 01/26/25 Procedure(s): US venous duplex LE RT Accession Number(s): [id number] cc: Miguel Ángel Rene; Marii Mcmillan MD [...] 01/26/25 1322 DD/ 1255 TD/TT: 01/26/25 1305 Geophysical Party Chief: LEIGHA [facility] External Provider IMG US PROCEDURES Final Result * XR Tibia Fibula 2 Views Right (01/26/2025 12:04 PM EST) Anatomical Region Laterality Modality Lower Extremities, Lower Leg Right Rad iographic Imaging 01/26/2025 12:0 4 PM EST Narrative 01/26/2025 12:15 PM EST [place] [address] XRay Report Signed Patient: Manuel Grimm MR#: [id number] : 1960 Acct:[id number] Age/Sex: 64 / M ADM Date: 01/26/25 Loc: .ED Attending Dr: Ordering Physician: Miguel Ángel Rene Date of Service: 01/26/25 Procedure(s): XR tibia fibula RT 2V Accession Number(s): [id number] cc: Miguel Ángel Rene; Marii Mcmillan MD [...] signed by Jose Glaser MD in OV> 01/26/253 DD/ 1204 TD/TT: 01/26/251208 Geophysical Party Chief: Procedure Note Donotuseinterpreter, Image - 01/26/[address] [address] XRay Report Signed Patient: Manuel Grimm DMR#: [id number] : 1960cct:[id number] Age/Sex: 64 / MADM Date: 01/26/25 Loc: .ED Attending Dr: Ordering Physician: Miguel Ángel Rene Date of Service: 01/26/25 Procedure(s): XR tibia fibula RT 2V Accession Number(s): [id number] cc: Miguel Ángel Rene; Marii Mcmillan MD [...] MDin OV> 01/26/25 1213 DD/ 1204 TD/TT: 01/26/251208 Geophysical Party Chief: [facility] External Provider IMG XR PROCEDURES Final Result * (ABNORMAL) CBC auto differential (01/26/2025 12:00 PM EST) White Blood Count 4.7(L) 4.8 - 10.8 X10*3/uL [facility] Red Blood Count 4.81 4.60 - 5.80 X10*6/uL [facility] Hemoglobin 14.7 14.0 - 18.0 g/dl [facility] Hematocrit 42.7 42.0 - 52.0 % [facility] Mean Corpuscular Volume 88.8 80.0 - 98.0 fL [facility] Mean Corpuscular Hemoglobin 30.6 27.0 - 33.0 pg [facility] Mean Corpuscular HGB Conc 34.4 31.0 - 36.0 g/dl [facility] Red Cell Distribution Width 12.9 11.0 - 16.0 % [facility] Platelet Count 124(L) 160 - 400 X10*3/uL [facility] Mean Platelet Volume 9.4 9.4 - 12.4 fL [facility] Neutrophils Percent Auto 48.1 45 - 73 % [facility] Imm Gran Pct Auto 0.2 0.0 - 0.4 % [facility] Lymphocytes Percent Auto 26.2 20 - 40 % [facility] Monocytes Percent Auto 16.1(H) 2 - 11 % [facility] Eosinophils Percent Auto 8.8(H) 0 - 4 % [facility] Basophils Percent Auto 0.6 0 - 2 % [facility] NRBC Pct Auto 0.0 0.0 - 0.2 /100WBC [facility] Neutrophils Absolute Auto 2.2 2.0 - 8.3 x10*3/uL [facility] Imm Gran Abs Auto 0.01 0.00 - 0.03 X10*3/uL [facility] Lymphocytes Absolute Auto 1.2 1.2 - 4.9 X10*3/uL [facility] Monocytes Absolute Auto 0.8 0.1 - 1.2 X10*3/uL [facility] Eosinophils Absolute Auto 0.4 0.0 - 0.4 X10*3/uL [facility] Basophils Absolute Auto 0.0 0.0 - 0.2 X10*3/uL [facility] NRBC Abs Auto 0.000 0.0 - 0.012 X10*3/uL [facility] 01/26/2025 12:0 0 PM EST 01/26/2025 12:02 PM EST Generic External Data Provider LAB BLOOD ORDERAB LES Final Result Performing Organization Address [facility] Co de Phone Number [facility] [address] [place] [phone] * Partial Thromboplastin Time, Activated (APTT) (01/26/2025 12:00 PM EST) Pathologist [facility] Partial Thromboplastin Time 30.7 26.7 - 34.1 SEC [facility] 01/26/2025 12:0 0 PM EST 01/26/2025 12:02 PM EST Generic External Data Provider LAB BLOOD ORDERAB LES Final Result Performing Organization Address [facility] Number [facility] [address] [place] [phone] * Sed Rate by Modified Sebren (01/26/2025 12:00 PM EST) Erythrocyte Sedimentation Rate 5 0 - 15 MM/HR [facility] Comment:Patients with polycy themia and many hemoglobin abnormalitiesmay have depressed sed rates whereas patients with anemiamay have elevated sed rates. 01/26/2025 12:0 0 PM EST 01/26/2025 12:02 PM EST Generic External Data Provider LAB BLOOD ORDERAB LES Final Result Performing Organization Address [facility] Co de Phone Number [facility] [address] [place] [phone] * Prothrombin Time-INR (01/26/2025 12:00 PM EST) Prothrombin Time 12.2 11.2 - 13.5 SEC [facility] INTERNATIONAL NORM RATIO [...] LES Final Result Performing Organization Address [facility] de Phone Number [facility] [address] [place] [phone] * C-reactive Protein (01/26/2025 12:00 PM EST) Pathologist [facility] C Reactive Protein <0.04 < or = 0.50 mg/dL [facility] 01/26/2025 12:0 0 PM EST 01/26/2025 12:02 PM EST Generic External Data Provider LAB BLOOD ORDERAB LES Final Result Performing Organization Address [facility] Co de Phone Number [facility] [address] [place] [phone] * Creatine Kinase, Total (01/26/2025 12:00 PM EST) Pathologist [facility] Creatine Kinase Total 66 38 - 174 U/L [facility] 01/26/2025 12:0 0 PM EST 01/26/2025 12:02 PM EST Generic External Data Provider LAB BLOOD ORDERAB LES Final Result Performing Organization Address [facility] Co de Phone Number [facility] [address] [place] [address] [phone] * (ABNORMAL) Comprehensive Metabolic Panel (01/26/2025 12:00 PM EST) Sodium 142 135 - 145 mmol/L [facility] Potassium 3.9 3.3 - 5.1 mmol/L [facility] Chloride 108 96 - 108 mmol/L [facility] Carbon Dioxide 27 22 - 29 mmol/L [facility] Anion Gap 11(L) 12 - 20 [facility] Urea Nitrogen (BUN) 22(H) 9 - 16 mg/dL [facility] Creatinine, Serum 0.78 0.5 - 1.4 mg/dL [facility] Creatinine Clr Calc Pharmacy 77.1 [facility] Comment:eGFR (calculated fro m the MDRD study equation) and eCrCl(calculated from the Cockcroft-Gault equation) are based ondifferent parameters and may not yield comparable results.If eCrCl result is absurd, please check patient'sheight/weight. Estimated Glomerular Filt Rate >60 [facility] Comment:Chronic Kidney Disea se: Estimated GFR < 60 mL/min/[id number] Kidney Disease: Estimated GFR < 15 mL/min/1.73m2 Glucose 88 60 - 115 mg/dL [facility] Calcium 9.5 8.4 - 10.2 mg/dL [facility] Bilirubin, Total 0.8 0.0 - 1.0 mg/dL [facility] Aspartate Amino Transferase 73(H) 5 - 37 U/L [facility] Alanine Aminotransferase 29 0 - 40 U/L [facility] Total Protein 7.2 6.5 - 8.0 g/dL [facility] Albumin Level 4.5 3.5 - 5.0 g/dL [facility] Alkaline Phosphatase 56 39 - 117 U/L [facility] 01/26/2025 12:0 0 PM EST 01/26/2025 12:02 PM EST us Generic External Data Provider LAB BLOOD ORDERAB LES Final Result Performing Organization Address [facility] Co de Phone Number [facility] [address] [place] [address] [phone] * HIV-1/2 Antigen and Antibodies, Fourth Generation, with Reflexes (08/12/2024 1:59 PM EDT) HIV AB/AG Nonreactive Nonreactive [facility] Comment:HIV-1 p24 Ag and/or HIV-1/HIV-2 Ab not detected.A test result that is nonreactive does not exclude thepossibility of exposure to or infection with HIV-1 and/orHIV-2. Nonreactive results in this assay for individualswith prior exposure to HIV-1 and/or HIV-2 may be due toantigen and antibody levels that are below the limit ofdetection of this assay.The [facility] HIV Ag/Ab Combo assay result andsupplemental assay results should be interpreted inconjunction with the patient's clinical presentation,history and other laboratory results. If the results areinconsistent with clinical evidence, additional testing issuggested to confirm the result. Blood Venous blood specimen / Unknown 08/12/2024 1:59 PM EDT 08/12/2024 1:59 PM EDT us Nita Steen LUNCH WAGON OPERATOR LAB BLOOD ORDERABLES Final Res ult Performing Organization Address [facility] Co de Phone Number [facility] [address] [place] [address] [phone] from Last 3 Months or Most Recently Relevant to Health Maintenance Insurance [facility] C3 Advance Directives Documents on File Type Date Recorded Patient Bronzer Expl anation Advance Directives and Livin g Will 08/26/2024 2:22 PM HCP Care Teams Lumber Straightened Relationship Specialty Start Date End Date Marii Mcmillan MD [address] [place] [address] PCP - General Family Medicine 07/11/21 Carmen Baird 01/27/25 Evelyne Green Citizenship InstructorCity Director 12/09/23
--- OUTSIDE RECORDS SUMMARY | 2025-02-13 15:43 | XMS_ITS | Encounter Summary ---
Author Organization [employer] Address [address] [facility] [address] [place] [address] Care Team Providers Care Sedimentationist Name Role Phone Marii Mcmillan MD Primary Care Provider [phone] Carmen Baird Unavailable Reason for Visit * Reason Onset Date Comments Med Refill 02/13/2025 Encounter Details Date Type Department Care Team ([facility] st Contact Info) Description 02/13/2025 Telephone [facility] [address] [place] [address] Marii Mcmillan MD [address] [place], [place] [phone] Med Refill Social History Tobacco Use Types [...] encounter Miscellaneous Notes * Telephone Encounter - Mere Deal LPN - 02/13/2025 10:28 AM EST Medication prescribed by YANCY GARCÍA * Telephone Encounter - Hermilo Lopez - 02/13/2025 10:25 AM EST TC from pt requesting medication refill. Medications needing refill: ascorbic acid (Vitamin C) 500 MG tablet To be sent to: [facility]/pharmacy #[id number] MARY [place] - [address] [place] [address] documented in this encounter Plan of Treatment Upcoming Encounters Date Type Department Care Team ([facility] st Contact Info) Description 02/14/2025 1:00 PM EST Clinical Support [facility] [address] [facility] [place] [phone] 03/13/2025 10:30 AM EST Clinical Support [facility] [address] [facility] [place] [phone] 04/19/2025 2:15 PM EST Clinical Support [facility] [address] [facility] [place] [address] Leelee Castaneda, RN [address] [place] [address] documented as of this encounter Visit Diagnoses Not on filedocumented in this encounter Additional Health Concerns Assessment Noted Time PHQ-9 Depression Total Score: 10 023 2:09 PM EST documented as of this encounter Care Teams Sedimentationist Relationship Specialty Start Date End Date Marii Mcmillan MD [address] [place] [address] PCP - General Family Medicine 07/11/21 Carmen Baird 01/27/25 Evelyne Green Equal Employment Opportunity OfficerCrimper Operator 12/09/23 documented as of this encounter
--- OUTSIDE RECORDS SUMMARY | 2025-02-13 15:43 | XMS_ITS | Encounter Summary ---
Author Organization [employer] Address [address] [facility] 7t [place] [address] Care Team Providers Care Entry Operator Name Role Phone Marii Mcmillan MD Primary Care Provider [phone] Carmen Baird Unavailable Reason for Visit * Reason Onset Date Comments CHART PREP 01/26/2024 Encounter Details Date Type Department Care Team ([facility] Contact Info) Description 01/26/2024 Telephone [facility] MED [facility]EDS [address] [place] [address] Marii Mcmillan MD [address] [place] [address] CHART PREP Social History Tobacco Use Types [...] Description 02/14/2025 1:00 PM EST Clinical Support [facility] [address] [place] [address] 03/13/2025 10:30 AM EST Clinical Support [facility] [address] [place] [address] 04/19/2025 2:15 PM EST Clinical Support [facility] [address] [place] [address] Leelee Castaneda, REGINA [address] [place] [address] documented as of this encounter Visit Diagnoses Diagnosis Polyarthralgia Pain in joint, multiple sites documented in this encounter Additional Health Concerns Assessment Noted Time PHQ-9 Depression Total Score: 10 023 2:09 PM EST documented as of this encounter Care Teams Entry Operator Relationship Specialty Start Date End Date Marii Mcmillan MD [address] [place] [address] PCP - General Family Medicine 07/11/21 Carmen Baird 01/27/25 Evelyne Green Push Bench Operator HelperCrowning Inspector 12/09/23 documented as of this encounter
--- OUTSIDE RECORDS SUMMARY | 2025-02-13 15:43 | XMS_ITS | Encounter Summary ---
Author Organization [employer] Address [address] [place] [address] 7 [place] [address] Care Team Providers Care Kitman Name Role Phone Marii Mcmillan MD Primary Care Provider [phone] Carmen Baird Unavailable Reason for Referral * Imaging (STAT) - Closed Specialty Diagnoses / Procedures Referred By Justino palma Referred To Contact Radiology Diagnoses Mass of right inguinal region Procedures Us Pelvis complete Gildardo Huertas MD [address] [place] [address] Phone: tel: fax: [address] [address] Phone: tel: fax: Referral ID Status Reason Start Date Expiration Date Visits Re quested Visits Authorized [id number] Closed 09/18/2022 09/18/2023 1 1 Encounter Details Date Type Department Care Team (Late st Contact Info) Description 09/18/2022 Orders Only [facility] MED & PEDS [address] [place], [place] [phone] Gildardo Huertas MD [address] [place], [place] [phone] Mass of right inguinal region (Primary Dx) [...] Description 02/14/2025 1:00 PM EST Clinical Support [facility] MED & PEDS [address] [place] [address] 03/13/2025 10:30 AM EST Clinical Support [facility] MED & PEDS [address] [place] [address] 04/19/2025 2:15 PM EST Clinical Support [facility] MED & PEDS [address] [place] [address] Leelee Castaneda, RN [address] [place] [address] Scheduled Orders Name Type Priority Associated Diagnoses [...] PM EDT Narrative 09/25/2022 10:43 AM EDT [address] [address] Ultrasound Report Signed Patient: Manuel Grimm MR#: [id number] : 1960 Acct:[id number] Age/Sex: 62 / M ADM Date: 09/18/22 Loc: HO.US Attending Dr: Marii Mcmillan MD Ordering Physician: Marii Mcmillan MD Date of Service: 09/18/22 Procedure(s): US pelvic limited Accession Number(s): [id number] cc: Marii Mcmillan MD EXAMINATION: US RIGHT [...] in OV> 09/25/22 1039 DD/ 1503 TD/TT: Food And Beverage Intern: Procedure Note Donotuseinterpreter, Image - 09/25/[address] [address] Ultrasound Report Signed Patient: Manuel Grimm DMR#: [id number] : 1960cct:[id number] Age/Sex: 62 / MADM Date: 09/18/22 Loc: HO.US Attending Dr: Marii Mcmillan MD Ordering Physician: Marii Mcmillan MD Date of Service: 09/18/22 Procedure(s): US pelvic limited Accession Number(s): [id number] cc: Marii Mcmillan MD EXAMINATION: US RIGHT [...] in OV> 09/25/22 1039 DD/ 1503 TD/TT: Food And Beverage Intern: [facility] External Provider IMG US PROCEDURES Final Result documented in this encounter Visit Diagnoses Diagnosis Mass of right inguinal region- Primary documented in this encounter Additional Health Concerns Assessment Noted Time PHQ-9 Depression Total Score: 10 023 2:09 PM EST documented as of this encounter Care Teams Kitman Relationship Specialty Start Date End Date Marii Mcmillan MD [address] [place] [address] PCP - General Family Medicine 07/11/21 Carmen Baird 01/27/25 Evelyne Green Publicity PersonExecutive Producer 12/09/23 documented as of this encounter
--- OUTSIDE RECORDS SUMMARY | 2025-02-13 15:43 | XMS_ITS | Encounter Summary ---
Author Organization [employer] Address [address] [facility] 7t [place] [address] Care Team Providers Care Smoke Tester Name Role Phone Marii Mcmillan MD Primary Care Provider [phone] Carmen Baird Unavailable Encounter Details Date Type Department Care Team ([facility] Contact Info) Description 08/18/2024 Orders Only [facility] MED & PEDS [address] [place], [place] [phone] Nita Steen FNP [address] [place] [address] Social History Tobacco Use Types Packs/Day Years [...] Description 02/14/2025 1:00 PM EST Clinical Support [facility] MED & PEDS [address] [place] [address] 03/13/2025 10:30 AM EST Clinical Support [facility] MED & PEDS [address] [place] [address] 04/19/2025 2:15 PM EST Clinical Support [facility] MED & PEDS [address] [place] [address] Leelee Castaneda, RN [address] [place] [address] documented as of this encounter Visit Diagnoses Not on filedocumented in this encounter Additional Health Concerns Assessment Noted Time PHQ-9 Depression Total Score: 10 023 2:09 PM EST documented as of this encounter Care Teams Smoke Tester Relationship Specialty Start Date End Date Marii Mcmillan MD [address] [place] [address] PCP - General Family Medicine 07/11/21 Carmen Baird 01/27/25 Evelyne Green Tube Machine OperatorChildren'S Ministries Director 12/09/23 documented as of this encounter
--- OUTSIDE RECORDS SUMMARY | 2025-02-13 15:43 | XMS_ITS | Encounter Summary ---
Author Organization [employer] Address [address] [facility] 7t [place] [address] Care Team Providers Care Retail Business Analyst Name Role Phone Marii Mcmillan MD Primary Care Provider [phone] Carmen Baird Unavailable Reason for Visit * Reason Onset Date Comments Appointment Request 08/15/2024 Encounter Details Date Type Department Care Team ([facility] Contact Info) Description 08/15/2024 Telephone [facility] MEDICINE [address] [place] [address] Marii Mcmillan MD [address] [place], [place] [phone] Appointment Request Social History Tobacco Use Types [...] * Telephone Encounter - Hermiloaron Lopez - 08/15/2024 9:31 AM EDT Tc from pt requesting to reschedule WOODWORKING MACHINE FEEDER visit. Please contact pt at [phone]. documented in this encounter Plan of Treatment Upcoming Encounters Date Type Department Care Team ([facility] st Contact Info) Description 02/14/2025 1:00 PM EST Clinical Support [facility] MED & PEDS [address] [place] [address] 03/13/2025 10:30 AM EST Clinical Support [facility] MED & PEDS [address] [place] [address] 04/19/2025 2:15 PM EST Clinical Support [facility] MED & PEDS [address] [place] [address] Leelee Castaneda RN [address] [place] [address] documented as of this encounter Visit Diagnoses Not on filedocumented in this encounter Additional Health Concerns Assessment Noted Time PHQ-9 Depression Total Score: 10 023 2:09 PM EST documented as of this encounter Care Teams Retail Business Analyst Relationship Specialty Start Date End Date Marii Mcmillan MD [address] [place] [address] PCP - General Family Medicine 07/11/21 Carmen Baird 01/27/25 Evelyne Green CoremakerManager Style 12/09/23 documented as of this encounter
--- OUTSIDE RECORDS SUMMARY | 2025-02-13 15:43 | XMS_ITS | Encounter Summary ---
Author Organization [employer] Address [address] [facility] 7t [place] [address] Care Team Providers Care Wallcovering Texturer Name Role Phone Marii Mcmillan MD Primary Care Provider [phone] Carmen Baird Unavailable Reason for Visit * Reason Onset Date Comments Med Change Request 11/04/2023 Encounter Details Date Type Department Care Team ([facility] st Contact Info) Description 11/04/2023 Telephone [facility] MEDICINE [address] [place] [address] Marii Mcmillan MD [address] [place], [place] [phone] Med Change Request Social History Tobacco Use [...] Description 02/14/2025 1:00 PM EST Clinical Support [facility] MED & PEDS [address] [place] [address] 03/13/2025 10:30 AM EST Clinical Support [facility] MED & PEDS [address] [place] [address] 04/19/2025 2:15 PM EST Clinical Support [facility] MED & PEDS [address] [place] [address] Leelee Castaneda, REGINA [address] [place] [address] documented as of this encounter Visit Diagnoses Not on filedocumented in this encounter Additional Health Concerns Assessment Noted Time PHQ-9 Depression Total Score: 10 023 2:09 PM EST documented as of this encounter Care Teams Wallcovering Texturer Relationship Specialty Start Date End Date Marii Mcmillan MD [address] [place] [address] PCP - General Family Medicine 07/11/21 Carmen Baird 01/27/25 Evelyne Green Pocketed Spring AssemblerPressing Machine Operator 12/09/23 documented as of this encounter
--- OUTSIDE RECORDS SUMMARY | 2025-02-13 15:43 | XMS_ITS | Encounter Summary ---
Author Organization [employer] Address [address] [facility] 7t [place] [address] Care Team Providers Care Aircraft Metalsmith Name Role Phone Marii Mcmillan MD Primary Care Provider [phone] Carmen Baird Unavailable Reason for Visit * Reason Onset Date Comments Med Refill 06/27/2024 Encounter Details Date Type Department Care Team ([facility] st Contact Info) Description 06/27/2024 Telephone [facility] MEDICINE [address] [place] [address] Marii Mcmillan MD [address] [place], [place] [phone] Med Refill Social History Tobacco Use Types [...] 5-325 MG tablet To be sent to: [facility]/pharmacy #[id number] MARY CARIAS - [address] [facility] documented in this encounter Plan of Treatment Upcoming Encounters Date Type Department Care Team ([facility] st Contact Info) Description 02/14/2025 1:00 PM EST Clinical Support [facility] MED & PEDS [address] [place] [address] 03/13/2025 10:30 AM EST Clinical Support [facility] MED & PEDS [address] [place] [address] 04/19/2025 2:15 PM EST Clinical Support [facility] MED & PEDS [address] [place] [address] Leelee Castaneda RN [address] [place] [address] documented as of this encounter Visit Diagnoses Not on filedocumented in this encounter Additional Health Concerns Assessment Noted Time PHQ-9 Depression Total Score: 10 023 2:09 PM EST documented as of this encounter Care Teams Aircraft Metalsmith Relationship Specialty Start Date End Date Marii Mcmillan MD [address] [place] [address] PCP - General Family Medicine 07/11/21 Carmen Baird 01/27/25 Evelyne Green RepairerDoor Clamp Operator 12/09/23 documented as of this encounter
--- OUTSIDE RECORDS SUMMARY | 2025-02-13 15:43 | XMS_ITS | Encounter Summary ---
Author Organization [employer] Address [address] [facility] 7t [place] [address] Care Team Providers Care Box Sealing Machine Feeder Name Role Phone Marii Mcmillan MD Primary Care Provider [phone] Carmen Baird Unavailable Reason for Visit * Reason Onset Date Comments Appointment Request 04/22/2023 Encounter Details Date Type Department Care Team ([facility] Contact Info) Description 04/22/2023 Telephone [facility] MED & PEDS [address] [place] [address] Marii Mcmillan MD [address] [place] [address] Appointment Request Social History Tobacco Use Types [...] was scheduled for [facility] apt today in [place] but, due to car not starting Pt [...] fever. Pt is offered to come [facility] today or tomorrow morning but, Pt would rather come to [place]. Pt is advised to call back tomorrow [...] (Car wont Start) Please contact pt @ [phone] documented in this encounter Plan of Treatment Upcoming Encounters Date Type Department Care Team ([facility] st Contact Info) Description 02/14/2025 1:00 PM EST Clinical Support [facility] MED & PEDS [address] [place] [address] 03/13/2025 10:30 AM EST Clinical Support [facility] MED & PEDS [address] [place] [address] 04/19/2025 2:15 PM EST Clinical Support [facility] MED & PEDS [address] [place] [address] Leelee Castaneda, RN [address] [place] [address] documented as of this encounter Visit Diagnoses Not on filedocumented in this encounter Additional Health Concerns Assessment Noted Time PHQ-9 Depression Total Score: 10 023 2:09 PM EST documented as of this encounter Care Teams Box Sealing Machine Feeder Relationship Specialty Start Date End Date Marii Mcmillan MD [address] [place] [address] PCP - General Family Medicine 07/11/21 Carmen Baird 01/27/25 Evelyne Green Service Desk AnalystInspector Circuitry Negative 12/09/23 documented as of this encounter
--- OUTSIDE RECORDS SUMMARY | 2025-02-13 15:43 | XMS_ITS | Data Portability ---
Author Organization [place] [facility], Allergy Address [address] [place] [address] Care Team Providers Care Professional Services Specialist Name Role Phone PAULINA EPSTEIN Primary Care [...] Organization Details Recorded Time Chronic mastoidi tis 69582143 Active 2013 Chronic mastoidi tis; Location : right CM S Risk: low risk CMS Treatmen t: establis hed problem (to examiner ): unstable or worsenin g Condit ion: unstable Note: Date Diagnose d: 4 3:25 PM (383.1) Not Available [facility] 4 02:24:10 Impacted cerumen 88385316 Active 2014 Impacted cerumen; Note: Date Diagnose d: 5 2:25 PM (380.4) Not Available [facility] 4 02:23:45 Chronic right mastoidi tis 31395773796 51201 Active 2015 Chronic mastoidi tis, right ear; Note: Date Diagnose d: 6 11:16 AM (H70.11) Not Available [facility] 4 02:24:01 Impacted cerumen in left ear 54200190842 02341 Active 2015 Impacted cerumen, left ear; Note: Date Diagnose d: 6 11:10 AM (H61.22) Not Available [facility] 4 02:23:56 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; Note: Date Diagnose d: 6 11:09 AM (383.33) Not Available [facility] 4 02:24:16 Granulat ions of mastoid cavity 908095083 Completed 201510/16/2023 Granulat ion of postmast oidectom y cavity, right ear; Note: Date Diagnose d: 6 11:16 AM (H95.121 ) Not Available [facility] 4 02:23:25 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 36082563706 92987 Active 2022 Total perforat ions of tympanic membrane , right ear; Note: Date Diagnose d: 3 10:38 AM (H72.821 ) SAI ROCA MD [address] [facility],[place] [address], [place], [address] , [place] [facility] 5 16:26:46 Postmast oidectom y complica tion 61346216 Active 2022 Other disorder s followin g mastoide ctomy, right ear; Note: Date Diagnose d: 3 10:33 AM (H95.191 ) SAI ROCA MD [address] [facility],[place] [address], [place], [address] , 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 - [facility] 5 11:24:03 Neck pain 53961930 Active 2023 Cervical chelsie; Note: Date Diagnose d: 06/16/2023 11:02 AM (M54.2) Not Available [facility] 4 02:24:04 Chronic neck pain 54209493940 07 Active 2023 Loren bean [place] - [facility] 4 13:58:40 Candidal otitis externa 95149937 Active 2024 SAI ROCA MD [address] [place] [address],[place] [address], [place], [address] , [place] - [facility] 5 16:26:46 Problem Notes None recorded. Procedures Surgical History Date Name Laterality Status Provider Name and Address Organization Details Recorded Time 5 Debridement of Mastoid Cavity right completed SAI ROCA MD [address] [facility],[address], [address], [facility] - [facility] 12/26/2024 11:17:39 5 Debridement of Mastoid Cavity right completed FAISAL SALAS [address] [facility] [place],[address], [address], [facility] - [facility] 10/21/2024 15:56:26 5 Debridement of Mastoid Cavity complex right completed SAI ROCA MD [address] [facility],[address], [address], [facility] - [facility] 10/04/2024 12:02:08 5 Debridement of Mastoid Cavity right completed SAI ROCA MD [address] [facility],[address], [address], [facility] - [facility] 06/01/2024 21:11:43 Imaging Results None recorded. Procedure Notes None recorded. Medical Equipment None Reported. Allergies Allergen ID Allergen Name Allergen Category Reaction Reaction Severity Criticality Documentation Date Start Date Code Code System Note Provider Name and Address Organization Details Recorded Time 835804 adhesive tape environme nt,medica tion Not available Not available Not available 05/31/2024 Cecelia eban [facility] 5 10:17:08 81790 Non-stero idal anti-infl ammatory agent (substanc e) medicatio n other Not available Not available 07/28/2023 45817 5008 SNOMED React ion: Unkno wn; Not Available [facility] 4 00:53:26 69481 Penicilli n Not available other Not available Not available 07/28/2023 93334 RxNorm React ion: Unkno wn; Not Available [facility] 4 00:53:42 Medications Name Sig Start Date Stop Date Status Note LastModified by Organization Details LastModified Time multivita min tablet active Medicati on ID: [id number] B rand Name: multivit eldridge Sen d [...] a day 06/02 completed Medicati on ID: 878477 D uration Value: 10 Brand Name: ofloxaci [...] as directed 06/02 completed Medicati on ID: [id number] D uration Value: 10 Brand Name: Ciprodex [...] vitamin K 06/02 completed Medicati on ID: 450673 B rand Name: vitamin k Send Method: [...] Updated DateTime 10/04/2024 167.64 cm 21 kg/m2 99430.01 g SONIA CASTRO [place] [facility] 10/04/2024 11:42:53 Date Recorded Body height Body mass index (BMI) Body weight Provider Name and Address Organization Details Last Updated DateTime 10/21/2024 165.1 cm 21 kg/m2 51441.64 g Maggy Telles [facility] 10/21/2024 13:32:03 Date Recorded Body height Body mass index (BMI) Body weight Provider Name and Address Organization Details Last Updated DateTime 12/26/2024 165.1 cm 21.1 kg/m2 97302.23 g Cecelia Owen [facility] 12/26/2024 11:03:26 Social History Question Answer Notes LastModified by Organizat ion Details LastModified Time Tobacco Smoking Status Former Smoker SAI ROCA MD [address] [place] [address], [address], [facility] - [facility] 10/28/2023 19:37:28 When Did You Quit Smoking? 6-10yearssin celastcigare tte [email or web address] Information not available 10/28/2023 How Many Years Have You Smoked Tobacco? 45 Information not available 10/28/2023 Sex: Unknown Functional Status Question Answer Note LastModified by Organization D etails LastModified Time What is your level of alcohol consumption? None [email or web address] Information not available 10/28/2023 Mental Status None recorded. Family History Nothing Reported. Medical History Condition Response Anxiety Y Glaucoma Y Depression Y Asthma Y Past Encounters Encounter ID Performer Location Encounter Start Date Encounter Closed Date Diagnosis/Indication Diagnosis SNOMED-CT Code Diagnosis ICD10 Code Diagnosis IMO Codes Diagnosis Note [id number] SAI ROCA MD [facility] [address] [address] 06/02/2024 13:15:22 06/02/2024 13:58:49 Postmastoidectomy complication 06759594 H95.191 Right canal wall down mastoidect [place] cavity was debrided today under the binocular microscope . No signs of acute or chronic inflammati on. Patient will follow-up in 12 months for next debridemen t Total perf oration of right tympanic membrane 0495343533 809252 H72.821 Chronic neck pain 860026 0136 107 M54.2 Patient's previously noted neck pain has resolved. Physical exam of the neck is normal. No need to proceed with CAT scan. [id number] SAI ROCA MD [facility] [address] [address] 10/04/2024 11:27:11 10/04/2024 11:57:36 Postmastoidectomy complication 44920279 H95.191 Right canal wall down mastoidect [place] [...] Total perf oration of right tympanic membrane 1515442972 113642 H72.821 Candidal o titis externa 39504326 B37.84 [id number] FAISAL SALAS [facility] [address] [address] 10/21/2024 13:23:09 10/21/2024 14:08:41 Postmastoidectomy complication 77973305 H95.191 Total perf oration of right tympanic membrane 0028954945 998162 H72.821 Candidal o titis externa 25433684 B37.84 Resolved. [id number] SAI ROAC MD [facility] [address] [address] 12/26/2024 10:52:48 12/26/2024 16:44:34 Postmastoidectomy complication 77453793 H95.191 Total perf oration of right tympanic membrane 9048077255 724535 H72.821 Bilateral temporomandibular joint pain 0899419519 9412708 M26.623 Today I reaffirmed the fact that [...] [employer] Member ID Guarantor Name 10/04/2024 1 [place] [facility] Manuel Grimm [id number] Manuel Grimm 12/23/2024 1 [place] [facility] (MEDICAID) Manuel Grimm [id number] Manuel Grimm Notes Date Note Type Note [...] diagnosis of TMJD. SAI ROCA MD [address] [facility],[address], [address], [facility] - [facility] 06/02/2024 13:58:47 10/04/2024 text/html Patient with history of right canal wall down mastoidectomy cavity comes in today for mastoid debridement. Last cleaning in May 2024. At that visit I recommended 1 year follow-up. He comes back at 4 months for reevaluation. Patient reports that he has been having drainage and itchiness and irritation for a few weeks now. SAI ROCA MD [address] [facility],[address], [address], [facility] - [facility] 10/04/2024 12:02:42 10/21/2024 text/html ROS as noted in the HPI 64 year old male, with a history of right canal wall down mastoidectomy, presents for reevaluation of right fungal otitis externa. Patient reports significant improvement in terms of itchiness, but continues to endorse mild ear pain and an occasional wet sensation. No recurrent drainage since the last visit. MITZI LARRY MD [address] [facility],[address], [address], [facility] - [facility] 10/21/2024 17:43:47 12/26/2024 text/html Patient with history of right canal wall down mastoidectomy cavity comes in today for mastoid debridement. Treated over the summer for fungal mastoid bowl infection with lotrisone cream application, confirmed resolved in October. Patient denies discharge currently. He has some periauricular discomfort. He has long-term issues with TMJ SAI ROCA MD [address] [place] [address], [place], [address], [facility] - [facility] 12/26/2024 11:24:30
--- OUTSIDE RECORDS SUMMARY | 2025-02-13 15:43 | XMS_ITS | Encounter Summary ---
Author Organization [employer] Address [address] [facility] [address] [place] [address] Care Team Providers Care Airflight Attendants Supervisor Name Role Phone Marii Mcmillan MD Primary Care Provider [phone] Carmen Baird Unavailable Reason for Visit * Reason Onset Date Comments PT1 05/15/2023 Encounter Details Date Type Department Care Team ([facility] st Contact Info) Description 05/15/2023 Telephone [facility] MEDICINE [address] [place] [address] Marii Mcmillan MD [address] [place], [place] [phone] PT1 Social History Tobacco Use Types Packs/Day [...] visits) ( x monthly, weekly, daily) Address: [address] [place] [address] Facility[facility] Wheel Chair: NO Litigation Attorney Needed: NO Address and phone confirmed by Evelyne CHAWLA documented in this encounter Plan of Treatment Upcoming Encounters Date Type Department Care Team (Late st Contact Info) Description 02/14/2025 1:00 PM EST Clinical Support [facility] MED & PEDS [address] [place] [address] 03/13/2025 10:30 AM EST Clinical Support [facility] [address] [place] [address] 04/19/2025 2:15 PM EST Clinical Support [facility] [address] [place] [address] Leelee Castaneda, REGINA [address] [place] [address] documented as of this encounter Visit Diagnoses Not on filedocumented in this encounter Additional Health Concerns Assessment Noted Time PHQ-9 Depression Total Score: 10 023 2:09 PM EST documented as of this encounter Care Teams Airflight Attendants Supervisor Relationship Specialty Start Date End Date Marii Mcmillan MD [address] [place] [address] PCP - General Family Medicine 07/11/21 Carmen Baird 01/27/25 Evelyne Green Male ImpersonatorPhysics Teacher 12/09/23 documented as of this encounter
--- OUTSIDE RECORDS SUMMARY | 2025-02-13 15:43 | XMS_ITS | Encounter Summary ---
Author Organization [employer] Address [address] [facility] [address] [place] [address] Care Team Providers Care Foxing Closer Name Role Phone Marii Mcmillan MD Primary Care Provider [phone] Carmen Baird Unavailable Reason for Visit * Reason Onset Date Comments Referral 03/12/2023 Encounter Details Date Type Department Care Team ([facility] Contact Info) Description 03/12/2023 Telephone [facility] MED [facility] PEDS [address] [place] [address] Marii Mcmillan MD [address] [place] [address] Referral Social History Tobacco Use Types Packs/Day [...] 03/12/2023 4:18 PM EST Referral re-faxed to [facility] gastro. * Telephone Encounter - Brooke Corral - 03/12/2023 1:49 PM EST Tc from [facility] office of [facility] gastroenterology has not received referral. documented in this encounter Plan of Treatment Upcoming Encounters Date Type Department Care Team (Late st Contact Info) Description 02/14/2025 1:00 PM EST Clinical Support [facility] MED & PEDS [address] [place] [address] 03/13/2025 10:30 AM EST Clinical Support [facility] [address] [place] [address] 04/19/2025 2:15 PM EST Clinical Support [facility]ED[facility] [address] [place] [address] Leelee Castaneda, REGINA [address] [place] [address] documented as of this encounter Visit Diagnoses Not on filedocumented in this encounter Additional Health Concerns Assessment Noted Time PHQ-9 Depression Total Score: 10 023 2:09 PM EST documented as of this encounter Care Teams Foxing Closer Relationship Specialty Start Date End Date Marii Mcmillan MD [address] [place] [address] PCP - General Family Medicine 07/11/21 Carmen Baird 01/27/25 Evelyne Green Director DigitalSweater Operator 12/09/23 documented as of this encounter
--- OUTSIDE RECORDS SUMMARY | 2025-02-13 15:43 | XMS_ITS | Encounter Summary ---
Author Organization [employer] Address [address] [facility] [address] [place] [address] Care Team Providers Care Mohs Surgeon/General Dermatologist Name Role Phone Marii Mcmillan MD Primary Care Provider [phone] Carmen Baird Unavailable Reason for Visit * Reason Onset Date Comments Med Refill 08/25/2024 Encounter Details Date Type Department Care Team ([facility] st Contact Info) Description 08/25/2024 Telephone [facility] MEDICINE [address] [place] [address] Marii Mcmillan MD [address] [place], [place] [phone] Med Refill Social History Tobacco Use Types [...] 5-325 MG tablet To be sent to: [facility]/pharmacy #[id number] MARY CARIAS - [address] [facility] documented in this encounter Plan of Treatment Upcoming Encounters Date Type Department Care Team ([facility] st Contact Info) Description 02/14/2025 1:00 PM EST Clinical Support [facility] [address] [place] [address] 03/13/2025 10:30 AM EST Clinical Support [facility] [address] [place] [address] 04/19/2025 2:15 PM EST Clinical Support [facility] [address] [place] [address] Leelee Castaneda, RN [address] [place] [address] documented as of this encounter Visit Diagnoses Not on filedocumented in this encounter Additional Health Concerns Assessment Noted Time PHQ-9 Depression Total Score: 10 023 2:09 PM EST documented as of this encounter Care Teams Mohs Surgeon/General Dermatologist Relationship Specialty Start Date End Date Marii Mcmillan MD [address] [place] [address] PCP - General Family Medicine 07/11/21 Carmen Baird 01/27/25 Evelyne Green Fuel OperatorPeer Specialist 12/09/23 documented as of this encounter
--- OUTSIDE RECORDS SUMMARY | 2025-02-13 15:43 | XMS_ITS | Continuity of Care Document ---
Author Organization [place] - [facility], [facility] Address [address] [place] [address] Care Team Providers Care Snow Removal Supervisor Name Role Phone EPSTEIN, PAULINA Primary Care [...] Organization Details Recorded Time Chronic mastoidi tis 43001660 Active 2013 Chronic mastoidi tis; Location : right CM S Risk: low risk CMS Treatmen t: establis hed problem (to examiner ): unstable or worsenin g Condit ion: unstable Note: Date Diagnose d: 4 3:25 PM (383.1) Not Available [facility] 4 02:24:10 Impacted cerumen 54130875 Active 2014 Impacted cerumen; Note: Date Diagnose d: 5 2:25 PM (380.4) Not Available [facility] 4 02:23:45 Chronic right mastoidi tis 48899007131 Active 2015 Chronic mastoidi tis, right ear; Note: Date Diagnose d: 6 11:16 AM (H70.11) Not Available [facility] 4 02:24:01 Impacted cerumen in left ear 93785093015 Active 2015 Impacted cerumen, left ear; Note: Date Diagnose d: 6 11:10 AM (H61.22) Not Available [facility] 4 02:23:56 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 joint; Note: Date Diagnose d: 06/16/2023 11:02 AM (M26.623 ) SAI ROCA MD [address] [facility],[place] [address], [place], [address] , [place] [facility] 5 11:24:03 Neck pain 27687038 Active 2023 Cervical chelsie; Note: Date Diagnose d: 06/16/2023 11:02 AM (M54.2) Not Available [facility] 4 02:24:04 Chronic neck pain 90688606165 07 Active 2023 Loren bean [place] - [facility] [place] 4 13:58:40 Candidal otitis externa 04663673 Active 2024 SAI ROCA MD [address] [facility] [place],[place] [address], [place], [address] , [place] [facility] 5 16:26:46 Problem Notes None recorded. Procedures Surgical History Date Name Laterality Status Provider Name and Address Organization Details Recorded Time 5 Debridement of Mastoid Cavity right completed SAI ROCA MD [address] [facility] [address],[place]ISA [facility], [place], [address], [place] [facility] 12/26/2024 11:17:39 5 Debridement of Mastoid Cavity right completed FAISAL SALAS [address],[place] [facility], [place], [address], [place] [facility] 10/21/2024 15:56:26 5 Debridement of Mastoid Cavity complex right completed SAI ROCA MD [address] [facility],[place] [address], [place], [address], [facility] - [facility] 10/04/2024 12:02:08 5 Debridement of Mastoid Cavity right completed SAI ROCA MD [address] [facility],[place] [address], [place], [address], [facility] - [facility] 06/01/2024 21:11:43 Imaging Results None recorded. Procedure Notes None recorded. Medical Equipment None Reported. Allergies Allergen ID Allergen Name Allergen Category Reaction Reaction Severity Criticality Documentation Date Start Date Code Code System Note Provider Name and Address Organization Details Recorded Time 536948 adhesive tape environme nt,medica tion Not available Not available Not available 05/31/2024 Cecelia bean [facility] 5 10:17:08 89848 Non-stero idal anti-infl ammatory agent (substanc e) medicatio n other Not available Not available 07/28/2023 23778 5008 SNOMED React ion: Unkno wn; Not Available [facility] 4 00:53:26 [address]7530 Penicilli n Not available other Not available Not available 07/28/2023 91458 RxNorm React ion: Unkno wn; Not Available [facility] 4 00:53:42 Medications Name Sig Start Date Stop Date Status Note LastModified by Organization Details LastModified Time multivita min tablet active Medicati on ID: 344510 B rand Name: multivit eldirdge Sen d Method: E-Prescr ibed Sub s [...] a day 06/02 completed Medicati on ID: [id number] D uration Value: 10 Brand Name: ofloxaci [...] TAKE 30 MINUTES PRIOR TO ARRIVAL TO [facility] 06/02 completed Not Available Not Available [...] as directed 06/02 completed Medicati on ID: [id number] D uration Value: 10 Brand Name: Ciprodex [...] vitamin K 06/02 completed Medicati on ID: 002185 B rand Name: vitamin k Send Method: [...] Updated DateTime 12/26/2024 165.1 cm 21.1 kg/m2 39921.23 g Cecelia Owen [place] - [facility] 12/26/2024 11:03:26 Social History Question Answer Notes LastModified by Organizat ion Details LastModified Time Tobacco Smoking Status Former Smoker SAI ROCA MD [address] [place] [address], [address], [facility] - [facility] 10/28/2023 19:37:28 When Did You Quit Smoking? 6-10yearssin celastcigare tte [email or web address] Information not available 10/28/2023 How Many Years Have You Smoked Tobacco? 45 Information not available 10/28/2023 Sex: Unknown Functional Status Question Answer Note LastModified by Organization D etails LastModified Time What is your level of alcohol consumption? None [email or web address] Information not available 10/28/2023 Mental Status None recorded. Family History Nothing Reported. Medical History Condition Response Anxiety Y Glaucoma Y Depression Y Asthma Y Past Encounters Encounter ID Performer Location Encounter Start Date Encounter Closed Date Diagnosis/Indication Diagnosis SNOMED-CT Code Diagnosis ICD10 Code Diagnosis IMO Codes Diagnosis Note [id number] SAI ROCA MD [facility] [address] [address] 12/26/2024 10:52:48 12/26/2024 16:44:34 Postmastoidectomy complication 17000878 H95.191 Total perf oration of right tympanic membrane 7589621603 226674 H72.821 Bilateral temporomandibular joint pain 9330054646 3045983 M26.623 Today I reaffirmed the fact that [...] [facility] (MEDICAID) Manuel Grmim [id number] Manuel Grimm Notes Date Note Type Note [...] long-term issues with TMJ SAI ROCA MD [address] [place] [address], [place], [address], [place] [facility] 12/26/2024 11:24:30
--- OUTSIDE RECORDS SUMMARY | 2025-02-13 15:43 | XMS_ITS | Encounter Summary ---
Author Organization [employer] Address [address] [facility] 7t [place] [address] Care Team Providers Care Naturopathic Oncology Provider Name Role Phone Marii Mcmillan MD Primary Care Provider [phone] Carmen Baird Unavailable Reason for Visit * Reason Onset Date Comments Med Refill 01/28/2024 Encounter Details Date Type Department Care Team ([facility] st Contact Info) Description 01/28/2024 Telephone [facility] MEDICINE [address] [place] [address] Marii Mcmillan MD [address], [place] [phone] Med Refill Social History Tobacco Use Types [...] 5-325 MG tablet To be sent to: [facility]/pharmacy #[id number] MARY CARIAS - [address] [place] [address] documented in this encounter Plan of Treatment Upcoming Encounters Date Type Department Care Team ([facility] st Contact Info) Description 02/14/2025 1:00 PM EST Clinical Support [facility] MED & PEDS [address] [place] [address] 03/13/2025 10:30 AM EST Clinical Support [facility] [address] [place] [address] 04/19/2025 2:15 PM EST Clinical Support [facility] PEDS [address] [place] [address] Leelee Castaneda, RN [address] [place] [address] documented as of this encounter Visit Diagnoses Not on filedocumented in this encounter Additional Health Concerns Assessment Noted Time PHQ-9 Depression Total Score: 10 023 2:09 PM EST documented as of this encounter Care Teams Naturopathic Oncology Provider Relationship Specialty Start Date End Date Marii Mcmillan MD [address] [place] [address] PCP - General Family Medicine 07/11/21 Carmen Baird 01/27/25 Evelyne Green Landfill GraderContinuous Improvement Manager 12/09/23 documented as of this encounter
--- OUTSIDE RECORDS SUMMARY | 2025-02-13 15:43 | XMS_ITS | Encounter Summary ---
Author Organization [employer] Address [address] [facility] 7t [place] [address] Care Team Providers Care Competitive Intelligence Manager Name Role Phone Marii Mcmillan MD Primary Care Provider [phone] Carmen Baird Unavailable Reason for Visit * Reason Onset Date Comments Appointment Request 01/11/2024 Encounter Details Date Type Department Care Team ([facility] Contact Info) Description 01/11/2024 Telephone [facility] MEDICINE [address] [place] [address] Marii Mcmillan MD [address] [place], [place] [phone] Appointment Request Social History Tobacco Use Types [...] from pt calling in regards to tomorrows [employer] CUTTER AND PASTER visit stating he is feeling sick and is wondering ifhe can change appt to a telephone visit. Please contact pt at [phone]. documented in this encounter Plan of Treatment Upcoming Encounters Date Type Department Care Team ([facility] st Contact Info) Description 02/14/2025 1:00 PM EST Clinical Support [facility] MED & PEDS [address] [place] [address] 03/13/2025 10:30 AM EST Clinical Support [facility] [address] [place] [address] 04/19/2025 2:15 PM EST Clinical Support [facility] [address] [place] [address] Leelee Castaneda RN [address] [place] [address] documented as of this encounter Visit Diagnoses Not on filedocumented in this encounter Additional Health Concerns Assessment Noted Time PHQ-9 Depression Total Score: 10 023 2:09 PM EST documented as of this encounter Care Teams Competitive Intelligence Manager Relationship Specialty Start Date End Date Marii Mcmillan MD [address] [place] [address] PCP - General Family Medicine 07/11/21 Carmen Baird 01/27/25 Evelyne Green Window Trimmer ApprenticeManager Market Development 12/09/23 documented as of this encounter
--- OUTSIDE RECORDS SUMMARY | 2025-02-13 15:43 | XMS_ITS | Encounter Summary ---
Author Organization [employer] Address [address] [facility] 7t [place] [address] Care Team Providers Care Wrapping Machine Operator Name Role Phone Marii Mcmillan MD Primary Care Provider [phone] Carmen Baird Unavailable Encounter Details Date Type Department Care Team ([facility] st Contact Info) Description 06/22/2023 Telephone [facility] MEDICINE [address] [place] [address] Marii Mcmillan MD [address] [place], [place] [phone] Social History Tobacco Use Types Packs/Day Years [...] 02/14/2025 1:00 PM EST Clinical [facility] [address] [place] [address] 03/13/2025 10:30 AM EST Clinical Support [facility] [address] [place] [address] 04/19/2025 2:15 PM EST Clinical Support [facility] [address] [place] [address] Leelee Castaneda, RN [address] [place] [address] documented as of this encounter Visit Diagnoses Not on filedocumented in this encounter Additional Health Concerns Assessment Noted Time PHQ-9 Depression Total Score: 10 023 2:09 PM EST documented as of this encounter Care Teams Wrapping Machine Operator Relationship Specialty Start Date End Date Marii Mcmillan MD [address] [place] [address] PCP - General Family Medicine 07/11/21 Carmen Baird 01/27/25 Evelyne Green Solar Panel InstallerKnife Glazer 12/09/23 documented as of this encounter
== END 2025-02-13 13:09 | disposition home or self-care (01) ==
LOC: HO.HGI 11:53
PROVIDERS: PCP Registered Nurse; Visit Provider Internal Medicine Gastroenterology
DX: K74.60 Unspecified cirrhosis of liver (principal)
CPT/HCPCS: 99214

== ENCOUNTER → 2025-02-13 11:53 | Outpatient (BNVA) | payer MEDICAID, SELFPAY | PROVIDERS: PCP Registered Nurse; Visit Provider Internal Medicine Gastroenterology | DX: K74.60 Unspecified cirrhosis of liver (principal) | CPT/HCPCS: 99212 ==

== ENCOUNTER 2025-03-10 07:19 | Outpatient (REF) | payer MEDICAID, SELFPAY ==
--- NOTE | ~2025-03-10 | CT_ITS ---
CLINICAL HISTORY: R10.31 - Right lower quadrant pain CT abdomen and pelvis without contrast Comparison: 01/26/2025 Findings: The lung bases are clear. Liver has a nodular contour, possible cirrhosis. The findings are not significantly changed The spleen measures 11.8 x 11.1 x 7.3 cm. There is recanalization of the umbilical vein suggesting portal hypertension. There are calcifications throughout the pancreas, unchanged Otherwise unremarkable solid organs. There are no abnormal findings in the gallbladder fossa. No urolithiasis. No bowel obstruction, pneumoperitoneum, or pneumatosis. Pelvic contents unremarkable. Normal appendix. The bones are intact. IMPRESSION: 1. Possible cirrhosis with splenomegaly and portal hypertension, not significantly changed 2. Possible chronic calcific pancreatitis. This document has been electronically signed by: Yosvany York MD on 03/10/2025 08:52:48
--- OUTSIDE RECORDS SUMMARY | 2025-03-10 07:22 | XMS_ITS | Clinical Summary ---
Author Organization [employer] Address [address] [place] [address] [address] [place] [address] Care Team Providers Care Load Dispatcher Name Role Phone Marii Mcmillan MD Primary Care Provider [phone] Allergies Active Allergy Reactions Criticality Noted Date [...] times every day to the affected area(s) 08/30/19 22 Active Blood Pressure kit Use by on arm route 1-2 times every day 07/12/19 22 Active dorzolamide-cher olol (Cosopt) 22.3-6.8 MG/ML ophthalmic solution INSTILL 1 DROP INTO RIGHT EYE EVERY 12 HOURS 01/28/20 22 Active Ciprodex otic suspension INSTILL 4 DROP INTO RIGHT EAR TWICE A DAY DIRECTED X 10 DAYS 05/08/19 23 Active Menaquinone-7 (Vitamin K2) 100 MCG capsuleIndicati ons:Takes dietary supplements Take 1 tablet by mouth in the morning. 90 capsule 4 05/24/19 23 Active ofloxacin (Floxin) 0.3 % otic solution INSTILL 5 DROPS INTO RIGHT EAR TWICE A DAY FOR 10 DAYS 04/29/19 24 Active Lotemax 0.5 % ophthalmic suspension INSTILL 1 DROP IN BOTH EYES TWICE A DAY FOR 3 WEEKS THEN DISCONTINUE 04/14/19 24 Active Multiple Vitamin (Multivitamin) tabletIndicatio ns:Vitamin deficiency, unspecified TAKE 1 TABLET BY MOUTH EVERY DAY IN THE MORNING 90 tablet 4 06/26/19 24 Active hydroCHLOROthia zide 12.5 MG tabletIndicatio ns:Hypertension , unspecified type TAKE 1 TABLET BY MOUTH EVERY DAY IN THE MORNING (12.5 MG) 90 tablet 4 06/14/19 25 Active potassium citrate CR (Urocit-K-10) 10 mEq ER tablet TAKE 1 TABLET BY MOUTH EVERY DAY 90 tablet 1 06/14/19 25 Active cholecalciferol (Vitamin D-3) 50 MCG (2000 UT) capsule Take 50 mcg by mouth Once per day. Active ascorbic acid (Vitamin C) 500 MG tablet Take 2 tablets by mouth Once per day. 06/19/19 25 Active naloxone (Narcan) 4 mg/0.1 mL nasal spray Administer 1 spray (4 mg) into affected nostril(s) if needed for opioid reversal. May repeat every 2-3 minutes if needed, alternating nostrils, until medical assistance becomes available. 2 each 2 11/10/19 25 026 Active triamcinolone (Kenalog) 0.5 % ointment APPLY TOPICALLY 2 TIMES DAILY TO AFFECTED AREA 15 g 12/13/19 25 Active gabapentin (Neurontin) 100 MG capsule Take 1 capsule (100 mg) by mouth at bedtime. 90 capsule 1 01/27/20 25 Active furosemide (Lasix) 40 MG tablet Take 1 tablet (40 mg) by mouth Once per day. 5 tablet 02/04/20 25 Active tamsulosin (Flomax) 0.4 MG 24 hr capsuleIndicati ons:Benign prostatic hyperplasia, unspecified whether lower urinary tract symptoms present TAKE 1 CAPSULE BY MOUTH EVERY DAY IN THE MORNING 90 capsule 1 02/17/20 25 Active oxyCODONE-aceta minophen (Percocet) 5-325 MG tabletIndicatio ns:Right hip pain Take 1 tablet by mouth every 6 (six) hours if needed for severe pain for up to 28 days. Do not start before February 23, 2025. 112 tablet 02/24/20 25 026 Active tamsulosin (Flomax) 0.4 MG 24 hr capsuleIndicati ons:Benign prostatic hyperplasia, unspecified whether lower urinary tract symptoms present TAKE 1 CAPSULE BY MOUTH EVERY DAY IN THE MORNING 90 capsule 1 06/14/19 025 Discontinued oxyCODONE (Roxicodone) 5 MG immediate release tabletIndicatio ns:Right hip pain Take 1 tablet (5 mg) by mouth every 6 (six) hours if needed for severe pain for up to 28 days. Do not start before January 24, 2025. 112 tablet 01/25/20 25 025 acetaminophen (Tylenol) 325 MG tablet Take 1 tablet (325 mg) by mouth every 6 (six) hours if needed for mild pain for up to 28 days. 112 tablet 01/27/20 025 sulfamethoxazol e-trimethoprim (Bactrim DS) 800-160 MG tablet Take 1 tablet by mouth 2 times daily for 10 days. 20 tablet 02/04/20 025 clotrimazole-be tamethasone (Lotrisone) cream Apply topically 2 times daily for 28 days. 60 g 3 02/07/20 25 025 Active Problems Problem Noted Date Diagnosed Date Preop cardiovascular exam 11/01/2024 Assessment & Plan (11/01/2024 12:14 PM EDT): Patient was seen for pre-operative evaluation. Patient reports no symptoms of CP at rest or with exertion, dyspnea at rest or with exertion, PND, LE edema, or claudication. Pt does has had he has had prior cardiac catheterizations in [facility] as well as [facility] but more than 10-15 years ago. Patient [...] was normal. Plan to schedule with [facility] History of cardiac arrhythmia 08/05/2024 Assessment & Plan (08/05/2024 7:53 PM EDT): - Reports previous cardiac cath at [facility] and [facility] > 10 years ago. No remarkable findings. - May 2024 consult note from [facility] [place]: Echo with LVEF 59% Myocardial perfusion [...] (08/05/2024 7:42 PM EDT): Following with [facility] - Dr. Prtat Per last consult May 2024: hx of [...] (08/05/2024 7:47 PM EDT): Following with [facility], plan for right TKA Before proceeding with surgery, would like to r/o obstruction in RLE. Order for US placed July 2024. Assessment & Plan (01/29/2024 1:37 AM EST): Pt is still experiencing pain. Relevant orders: Referral to Orthopaedic Surgery Assessment & Plan (07/07/2023 3:56 PM EDT): exchange specialist will further monitor hip pain. Assessment & Plan (04/21/2023 1:34 PM EST): Patient with Hx of Hip Arthritis stated that medications are not improving hip pain. Therefore, will discontinue prior medications, and will be prescribing Oxycodone. Recommended to follow up with an in-person visit. Assessment & Plan (02/26/2023 3:51 PM EST): Patient that presented [facility] compplaints of R Hip Pain [...] with Rheumatoid arthritis - Consult at [facility] in May 2022 with plan for [...] organization. Date Type Department Care Team Description 02/20/2025 Refill [facility] [address] [facility] [place] [address] Leelee Castaneda, RN Right hip pain (Primary Dx) 02/20/[address] [address] Marii Mcmillan MD Call Back Request 02/17/2025 Patient Outreach [facility] [address] [place] [phone] Marii Mcmillan MD 02/16/[address] [address] Gildardo Huertas MD Benign prostatic hyperplasia, unspecified whether lower urinary tract symptoms present 02/14/2025 1:00 PM EST Clinical Support [facility] [address] [place] [address] Elena Johnson RN Rash 02/14/2025 Travel 02/13/[address] [address] Marii Mcmillan MD Med Refill 02/07/2025 11:30 AM EST Office Visit [facility] [address] [place] [phone] Gildardo Huertas MD Localized swelling of right lower extremity (Primary Dx) 02/07/2025 Travel 02/06/[address] [address] Marii Mcmillan MD script missing 02/03/2025 2:15 PM EST Office Visit [facility] [address] [place] [phone] Marii Mcmillan MD Localized swelling of right lower extremity (Primary Dx); Hyperlipidemia, unspecified hyperlipidemia type 02/03/2025 Travel 02/02/2025 Travel 01/31/[address] [address] Marii Mcmillan MD Referral 01/30/2025 1:00 PM EST Telemedicine [facility] [address] [place] [phone] Leelee Castaneda, inspector rag sorting low back pain, unspecified back pain laterality, unspecified whether sciatica present 01/30/2025 Travel 01/27/2025 Patient Outreach [facility] [address] [place] [address] Marii Mcmillan MD Care Coordination ( Care Coordination Chart Review) 01/27/2025 Travel 01/27/2025 Patient Outreach [facility] [address] [place] [address] Marii Mcmillan MD Care Coordination ([facility] Follow Up) 01/27/2025 Telephone [facility] [address] [place] [phone] Marii Mcmillan MD Nurse Triage 01/27/2025 Patient Outreach [facility] [address] [place] [phone] Marii Mcmillan MD 01/26/2025 Refill [facility] [address] [place] [address] Leelee Castaneda RN 01/26/2025 Orders Only GENERIC EXTERNAL DATA DEPARTMENT Provider, Generic External Data 01/25/2025 Refill [facility] [address] [place] [address] Nita Steen FNP 01/25/2025 Telephone [facility] [address] [place] [phone] Marii Mcmillan MD Prior Auth Prescription 01/18/2025 Telephone [facility] [address] [place] [address] Marii Mcmillan MD Medication Question 12/27/2024 Refill [facility] [address] [place] [address] Marii Mcmillan MD Right hip pain 12/20/2024 Telephone [facility] [address], [place] [phone] Marii Mcmillan MD Call Back Request 12/09/2024 Refill [facility] [address], [place] [phone] Marii Mcmillan MD from Last 3 Months Immunizations Immunization Administration [...] Care Team (Late st Contact Info) Description 03/13/2025 10:30 AM EST Clinical Support [facility] [address] [place] [address] 04/19/2025 2:15 PM EST Clinical Support [facility] [address] [place] [address] Leelee Castaneda, RN [address] [place] [address] Health Maintenance Due Date Last Done Comments [...] given: No Instructions and paperwork completed: Yes [place] protocol: Procedure explained and questions answered to [...] after application of triamcinolone ointment 0.1% Lot [id number], Exp Dec 10. us Gildardo Huertas MD IN CLINIC/BEDSIDE ORDERABLE S Final Result * (ABNORMAL) Lipid Panel, Standard (02/03/2025 4:01 PM EST) Triglycerides 57 <150 mg/dL [facility] Comment:Desirable Triglyceri de: less than 150 mg/dLBorderline High Triglyceride 150-199 mg/dLHigh Triglyceride: 200-499 mg/dLVery High Triglyceride: greater than or equal to 5OO mg/dL Cholesterol 169 <200 mg/dL [facility] Comment:Desirable Cholestero l: less than 200 mg/dLBorderline High Cholesterol: 200-239 mg/dLHigh Cholesterol: greater than 239 mg/dL LDL Cholesterol Calculated 101(H) <100 mg/dL [facility] Comment:Desirable LDL: less than 100 mg/dLNear Optimal/Above Optimal LDL: 110- 129 mg/dLBorderline High LDL: 130-159 mg/dLHigh LDL: 160-189 mg/dLVery High LDL: greater than or equal to 190 mg/dL HDL Cholesterol 57 >40 mg/dL [facility] Comment:Desirable HDL: great er than 40 mg/dL Note: This HDL assay may give artificially low results in patients with liver disease. Blood Venous blood specimen / Unknown 02/03/2025 4:01 PM EST 02/03/2025 6:29 PM EST us Marii Mcmillan MD LAB BLOOD ORDERABLES Final Re sult [facility] [address] [place] [phone] * CT Abdomen Pelvis w/ Contrast (01/26/2025 7:13 PM EST) Anatomical Region Laterality Modality Body, Pelvis, Abdomen Computed T omography 01/26/2025 7:13 PM EST Narrative 01/26/2025 7:14 PM EST [address] [address] [address] Scan Report Signed Patient: Manuel Grimm MR#: [id number] : 1960 Acct:[id number] Age/Sex: 64 / M ADM Date: 01/26/25 Loc: HO.ED Attending Dr: Ordering Physician: Audrey Mcdowell MD Date of Service: 01/26/25 Procedure(s): CT abdomen pelvis w IV con Accession Number(s): [id number] cc: Audrey Mcdowell MD; Marii Mcmillan MD Report Number: [id number]: Total DLP = 326.00 mGy-cm Reason for Exam: right groin pain CLINICAL HISTORY: right groin pain CT abdomen and pelvis with contrast Comparison: US/NH/SR - US ABDOMEN LIMITED WITH LIVER ELASTOGRAPHY [...] in OV> 01/26/251913 DD/ 12 TD/TT: 01/26/251912 Air Conditioning Unit Assembler: Procedure Note Donotuseinterpreter, Image - 01/26/[address] [address] [address] Scan Report Signed Patient: Manuel Grimm [facility]#: [id number] : 1960cct:[id number] Age/Sex: 64 / MADM Date: 01/26/25 Loc: HO.ED Attending Dr: Ordering Physician: Audrey Mcdowell MD Date of Service: 01/26/25 Procedure(s): CT abdomen pelvis w IV con Accession Number(s): [id number] cc: Audrey Mcdowell MD; Marii Mcmillan MD Report Number: [id number]: Total DLP = 326.00 mGy-cm Reason for Exam: right groin pain CLINICAL HISTORY: right groin pain CT abdomen and pelvis with contrast Comparison: US/NH/SR - US ABDOMEN LIMITED WITH LIVER ELASTOGRAPHY [...] in OV> 01/26/251913 DD/ 12 TD/TT: 01/26/251912 Air Conditioning Unit Assembler: us [facility] External Provider IMG CT PROCEDURES Final Result * US VENOUS DUPLEX LE RT (01/26/2025 12:55 PM EST) Anatomical Region Laterality Modality Abdomen Ultrasound 01/26/2025 12:5 5 PM EST Narrative 01/26/2025 1:25 PM EST [address] [address] Ultrasound Report Signed Patient: Manuel Grimm MR#: [id number] : 1960 Acct:[id number] Age/Sex: 64 / M ADM Date: 01/26/25 Loc: .ED Attending Dr: Ordering Physician: Miguel Ángel Rene Date of Service: 01/26/25 Procedure(s): US venous duplex LE RT Accession Number(s): [id number] cc: Miguel Ángel Rene; Marii Mcmillan MD [...] by: William Lau MD 01/26/2025 01:22 PM [facility] Dictated By: William Lau MD Signed By: <Electronically signed by William Lau MD in OV> 01/26/25 1322 DD/ 1255 TD/TT: 01/26/25 1305 Air Conditioning Unit Assembler: Procedure Note Donotuseinterpreter, Image - 01/26/2025 [place] [address] Ultrasound Report Signed Patient: Manuel Grimm DMR#: [id number] : 1960cct:[id number] Age/Sex: 64 / MADM Date: 01/26/25 Loc: .ED Attending Dr: Ordering Physician: Miguel Ángel Rene Date of Service: 01/26/25 Procedure(s): US venous duplex LE RT Accession Number(s): [id number] cc: Miguel Ángel Rene; Marii Mcmillan MD [...] 01/26/25 1322 DD/ 1255 TD/TT: 01/26/25 1305 Air Conditioning Unit Assembler: LEIGHA us [facility] External Provider IMG US PROCEDURES Final Result * XR Tibia Fibula 2 Views Right (01/26/2025 12:04 PM EST) Anatomical Region Laterality Modality Lower Extremities, Lower Leg Right Rad iographic Imaging 01/26/2025 12:0 4 PM EST Narrative 01/26/2025 12:15 PM EST [place] [address] XRay Report Signed Patient: Manuel Grimm MR#: [id number] : 1960 Acct:[id number] Age/Sex: 64 / M ADM Date: 01/26/25 Loc: HO.ED Attending Dr: Ordering Physician: Miguel Ángel Rene Date of Service: 01/26/25 Procedure(s): XR tibia fibula RT 2V Accession Number(s): [id number] cc: Miguel Ángel Rene; Marii Mcmillan MD [...] 01/26/25 1213 DD/ 1204 TD/TT: 01/26/25 1209 Air Conditioning Unit Assembler: Procedure Note Donotuseinterpreter, Image - 01/26/2025 [place] [address] XRay Report Signed Patient: Manuel Grimm DMR#: [id number] : 1Acct:[id number] Age/Sex: 64 / MADM Date: 01/26/25 Loc: HO.ED Attending Dr: Ordering Physician: Miguel Ángel Rene Date of Service: 01/26/25 Procedure(s): XR tibia fibula RT 2V Accession Number(s): [id number] cc: Miguel Ángel Rene; Marii Mcmillan MD [...] 01/26/25 1213 DD/ 1204 TD/TT: 01/26/25 1209 Air Conditioning Unit Assembler: [facility] External Provider IMG XR PROCEDURES Final Result * (ABNORMAL) CBC auto differential (01/26/2025 12:00 PM EST) White Blood Count 4.7(L) 4.8 - 10.8 X10*3/uL [facility] Red Blood Count 4.81 4.60 - 5.80 X10*6/uL [facility] Hemoglobin 14.7 14.0 - 18.0 g/dl [facility] Hematocrit 42.7 42.0 - 52.0 % [facility] Mean Corpuscular Volume 88.8 80.0 - 98.0 fL [facility] Mean Corpuscular Hemoglobin 30.6 27.0 - 33.0 pg [facility] Mean Corpuscular HGB Conc 34.4 31.0 - 36.0 g/dl [facility] Red Cell Distribution Width 12.9 11.0 - 16.0 % [facility] Platelet Count 124(L) 160 - 400 X10*3/uL [facility] Mean Platelet Volume 9.4 9.4 - 12.4 fL [facility] Neutrophils Percent Auto 48.1 45 - 73 % [facility] Imm Gran Pct Auto 0.2 0.0 - 0.4 % [facility] Lymphocytes Percent Auto 26.2 20 - 40 % [facility] Monocytes Percent Auto 16.1(H) 2 - 11 % [facility] Eosinophils Percent Auto 8.8(H) 0 - 4 % [facility] Basophils Percent Auto 0.6 0 - 2 % [facility] NRBC Pct Auto 0.0 0.0 - 0.2 /100WBC [facility] Neutrophils Absolute Auto 2.2 2.0 - 8.3 x10*3/uL [facility] Imm Gran Abs Auto 0.01 0.00 - 0.03 X10*3/uL [facility] Lymphocytes Absolute Auto 1.2 1.2 - 4.9 X10*3/uL [facility] Monocytes Absolute Auto 0.8 0.1 - 1.2 X10*3/uL [facility] Eosinophils Absolute Auto 0.4 0.0 - 0.4 X10*3/uL [facility] Basophils Absolute Auto 0.0 0.0 - 0.2 X10*3/uL [facility] NRBC Abs Auto 0.000 0.0 - 0.012 X10*3/uL [facility] 01/26/2025 12:0 0 PM EST 01/26/2025 12:02 PM EST Generic External Data Provider LAB BLOOD ORDERAB LES Final Result Performing Organization Address [facility] Co de Phone Number [facility] [address] [place] [phone] * Partial Thromboplastin Time, Activated (APTT) (01/26/2025 12:00 PM EST) Partial Thromboplastin Time 30.7 26.7 - 34.1 SEC [facility] 01/26/2025 12:0 0 PM EST 01/26/2025 12:02 PM EST Generic External Data Provider LAB BLOOD ORDERAB LES Final Result Performing Organization Address [facility] Co de Phone Number [facility] [address] [place] [phone] * Sed Rate by Modified Sebren (01/26/2025 12:00 PM EST) Erythrocyte Sedimentation Rate 5 0 - 15 MM/HR [facility] Comment:Patients with polycy themia and many hemoglobin abnormalitiesmay have depressed sed rates whereas patients with anemiamay have elevated sed rates. 01/26/2025 12:0 0 PM EST 01/26/2025 12:02 PM EST Generic External Data Provider LAB BLOOD ORDERAB LES Final Result Performing Organization Address [facility] Co de Phone Number [facility] [address] [place] [phone] * Prothrombin Time-INR (01/26/2025 12:00 PM EST) Prothrombin Time 12.2 11.2 - 13.5 SEC [facility] INTERNATIONAL NORM RATIO 1.0 0.9 - 1.1 [facility] Comment:INTERNATIONAL NORMAL IZED RATIO (INR) [...] ORDERAB LES Final Result Performing Organization Address [facility] de Phone Number [facility] [address] [place] [phone] * C-reactive Protein (01/26/2025 12:00 PM EST) C Reactive Protein <0.04 < or = 0.50 mg/dL [facility] 01/26/2025 12:0 0 PM EST 01/26/2025 12:02 PM EST Generic External Data Provider LAB BLOOD ORDERAB LES Final Result Performing Organization Address [facility] Co de Phone Number [facility] [address] [place] [phone] * Creatine Kinase, Total (01/26/2025 12:00 PM EST) Creatine Kinase Total 66 38 - 174 U/L [facility] 01/26/2025 12:0 0 PM EST 01/26/2025 12:02 PM EST us Generic External Data Provider LAB BLOOD ORDERAB LES Final Result [facility] [address] [place] [phone] * (ABNORMAL) Comprehensive Metabolic Panel (01/26/2025 12:00 PM EST) Sodium 142 135 - 145 mmol/L [facility] Potassium 3.9 3.3 - 5.1 mmol/L [facility] Chloride 108 96 - 108 mmol/L [facility] Carbon Dioxide 27 22 - 29 mmol/L [facility] Anion Gap 11(L) 12 - 20 [facility] Urea Nitrogen (BUN) 22(H) 9 - 16 mg/dL [facility] Creatinine, Serum 0.78 0.5 - 1.4 mg/dL [facility] Creatinine Clr Calc Pharmacy 77.1 [facility] Comment:eGFR (calculated fro m the MDRD study equation) and eCrCl(calculated from the Cockcroft-Gault equation) are based ondifferent parameters and may not yield comparable results.If eCrCl result is absurd, please check patient'sheight/weight. Estimated Glomerular Filt Rate >60 [facility] Comment:Chronic Kidney Disea se: Estimated GFR < 60 mL/min/1.38t2Qafwrp Kidney Disease: Estimated GFR < 15 mL/min/1.73m2 Glucose 88 60 - 115 mg/dL [facility] Calcium 9.5 8.4 - 10.2 mg/dL [facility] Bilirubin, Total 0.8 0.0 - 1.0 mg/dL [facility] Aspartate Amino Transferase 73(H) 5 - 37 U/L [facility] Alanine Aminotransferase 29 0 - 40 U/L [facility] Total Protein 7.2 6.5 - 8.0 g/dL [facility] Albumin Level 4.5 3.5 - 5.0 g/dL [facility] Alkaline Phosphatase 56 39 - 117 U/L [facility] 01/26/2025 12:0 0 PM EST 01/26/2025 12:02 PM EST us Generic External Data Provider LAB BLOOD ORDERAB LES Final Result Performing Organization Address [facility]/ZIP Co de Phone Number [facility] [address] [place] [phone] * HIV-1/2 Antigen and Antibodies, Fourth Generation, with Reflexes (08/12/2024 1:59 PM EDT) HIV AB/AG Nonreactive Nonreactive [facility] Comment:HIV-1 p24 Ag and/or HIV-1/HIV-2 Ab not detected.A test result that is nonreactive does not exclude thepossibility of exposure to or infection with HIV-1 and/orHIV-2. Nonreactive results in this assay for individualswith prior exposure to HIV-1 and/or HIV-2 may be due toantigen and antibody levels that are below the limit ofdetection of this assay.The [employer] HIV Ag/Ab Combo assay result andsupplemental assay results should be interpreted inconjunction with the patient's clinical presentation,history and other laboratory results. If the results areinconsistent with clinical evidence, additional testing issuggested to confirm the result. Blood Venous blood specimen / Unknown 08/12/2024 1:59 PM EDT 08/12/2024 1:59 PM EDT us Nita Steen [employer] DEVELOPER LAB BLOOD ORDERABLES Final Res ult Performing Organization Address [facility]/ZIP Co de Phone Number [facility] [address] [place] [phone] from Last 3 Months or Most Recently Relevant to Health Maintenance Insurance [facility] C3 Advance Directives Documents on File Type Date Recorded Patient Lining Setter Expl anation Advance Directives and Livin g Will 08/26/2024 2:22 PM HCP Care Teams Load Dispatcher Relationship Specialty Start Date End Date Marii Mcmillan MD [address] [place] [phone] PCP - General Family Medicine 07/11/21 Evelyne Green Door Furring InstallerAutomation Analyst 12/09/23
--- OUTSIDE RECORDS SUMMARY | 2025-03-10 07:22 | XMS_ITS | Encounter Summary ---
Author Organization [employer] Address [address] [facility] 7t [place] [address] Care Team Providers Care Cisco Administrator Name Role Phone Marii Mcmillan MD Primary Care Provider [phone] Reason for Visit * Reason Onset Date Comments Call Back Request 02/20/2025 Encounter Details Date Type Department Care Team ([facility] Contact Info) Description 02/20/[address] [facility] MEDICINE [address] [place] [address] Marii Mcmillan MD [address] [place] [address] Call Back Request Social History Tobacco Use Types Packs/Day [...] Telephone Encounter - Marii Mcmillan MD - 02/20/2025 4:13 PM EST Can we proceed with sending him percocet for the next script. * Telephone Encounter - Cindy Woods RN - 02/20/2025 3:40 PM EST Called pt regarding request for call back, spoke to pt. Pt states was told by his PCP that if he wanted to go back to Percocet from straight Oxycodone to call and notify early. Pt states not getting the same effect and wants to go back to the Percocet. Will task to PCP and let him know if any changes. Pt understands and agrees with plan. * Telephone Encounter - Tyler Lopez - 02/20/2025 2:45 PM EST Tc from pt requesting a call back. Pt states he did not want to speak with filing writer and denied providing any information. Please contact at [phone] documented in this encounter Plan of Treatment Upcoming Encounters Date Type Department Care Team (Late st Contact Info) Description 03/13/2025 10:30 AM EST Clinical Support [facility] MED & PEDS [address] [place] [address] 04/19/2025 2:15 PM EST Clinical Support [facility] MED & PEDS [address] [place] [address] Leelee Castaneda, RN [address] [place] [address] documented as of this encounter Visit Diagnoses Not on filedocumented in this encounter Additional Health Concerns Assessment Noted Time PHQ-9 Depression Total Score: 10 023 2:09 PM EST documented as of this encounter Care Teams Cisco Administrator Relationship Specialty Start Date End Date Marii Mcmillan MD [address] [place] [address] PCP - General Family Medicine 07/11/21 Evelyne Green Tube CoaterForensic Dna Analyst 12/09/23 documented as of this encounter
--- OUTSIDE RECORDS SUMMARY | 2025-03-10 07:22 | XMS_ITS | Encounter Summary ---
Author Organization [employer] Address [address] [place] [address] 7t [place] [address] Care Team Providers Care University President Name Role Phone Marii Mcmillan MD Primary Care Provider [phone] Carmen Baird Unavailable Reason for Visit * Reason Comments Med Change Request Encounter Details Date Type Department Care Team ([facility] Contact Info) Description 05/29/2022 Refill [facility]C MED & PEDS [address] [place] [address] Marii Mcmillan MD [address] [place] [address] Takes dietary supplements Social History Tobacco Use [...] EST Clinical Support [facility] MED & PEDS [address] [place] [address] 04/19/2025 2:15 PM EST Clinical Support [facility] MED & PEDS [address] [place] [address] Leelee Castaneda, RN [address] [place] [address] documented as of this encounter Visit Diagnoses Diagnosis Takes dietary supplements documented in this encounter Additional Health Concerns Assessment Noted Time PHQ-9 Depression Total Score: 10 023 2:09 PM EST documented as of this encounter Care Teams University President Relationship Specialty Start Date End Date Marii Mcmillan MD [address] [place] [address] PCP - General Family Medicine 07/11/21 Carmen Baird 01/27/25 02/17/25 Evelyne Green Coin Machine OperatorPhlebotomy Manager 12/09/23 documented as of this encounter
--- OUTSIDE RECORDS SUMMARY | 2025-03-10 07:22 | XMS_ITS | Encounter Summary ---
Author Organization [employer] Address [address] [facility] 7t [place] [address] Care Team Providers Care Partner Integration Planner Name Role Phone Marii Mcmillan MD Primary Care Provider Carmen Baird Unavailable Reason for Visit * Reason Onset Date Comments Appointment Request 01/11/2024 Encounter Details Date Type Department Care Team ([facility] Contact Info) Description 01/11/2024 Telephone [facility] MEDICINE [address] [place] [address] Marii Mcmillan MD [address] [place], [place] [phone] Appointment Request Social History Tobacco Use Types [...] from pt calling in regards to tomorrows ONLINE CONTENT DEVELOPER visit stating he is feeling sick and is wondering ifhe can change appt to a telephone visit. Please contact pt at [phone]. documented in this encounter Plan of Treatment Upcoming Encounters Date Type Department Care Team ([facility] st Contact Info) Description 03/13/2025 10:30 AM EST Clinical Support [facility] MED & PEDS [address] [place] [address] 04/19/2025 2:15 PM EST Clinical Support [facility] MED & PEDS [address] [place] [address] Leelee Castaneda, REGINA 505 [place] [address] documented as of this encounter Visit Diagnoses Not on filedocumented in this encounter Additional Health Concerns Assessment Noted Time PHQ-9 Depression Total Score: 10 023 2:09 PM EST documented as of this encounter Care Teams Partner Integration Planner Relationship Specialty Start Date End Date Marii Mcmillan MD [address] [place] [address] PCP - General Family Medicine 07/11/21 Carmen Baird 01/27/25 02/17/25 Evelyne Green 911 Emergency Services DispatcherContractor General Building 12/09/23 documented as of this encounter
--- OUTSIDE RECORDS SUMMARY | 2025-03-10 07:22 | XMS_ITS | Encounter Summary ---
Author Organization [employer] Address [address] [facility] 7t [place] [address] Care Team Providers Care Hardening Machine Operator Helper Name Role Phone Marii Mcmillan MD Primary Care Provider [phone] Carmen Baird Unavailable Encounter Details Date Type Department Care Team ([facility] Contact Info) Description 08/18/2024 Orders Only [facility] CHC MED & PEDS [address] [place], [place] [phone] Nita Steen FNP [address] [place] [address] Social History Tobacco Use Types Packs/Day Years [...] Upcoming Encounters Date Type Department Care Team ([facility] st Contact Info) Description 03/13/2025 10:30 AM EST Clinical Support [facility] MED & PEDS [address] [place] [address] 04/19/2025 2:15 PM EST Clinical Support [facility] MED & PEDS [address] [place] [address] Leelee Castaneda, REGINA [address] [place] [address] documented as of this encounter Visit Diagnoses Not on filedocumented in this encounter Additional Health Concerns Assessment Noted Time PHQ-9 Depression Total Score: 10 023 2:09 PM EST documented as of this encounter Care Teams Hardening Machine Operator Helper Relationship Specialty Start Date End Date Marii Mcmillan MD [address] [place] [address] PCP - General Family Medicine 07/11/21 Carmen Baird 01/27/25 02/17/25 Evelyne Green Whipped Topping MixerPersonnel Records Clerk 12/09/23 documented as of this encounter
--- OUTSIDE RECORDS SUMMARY | 2025-03-10 07:22 | XMS_ITS | Encounter Summary ---
Author Organization [employer] Address [address] [facility] 7t [place] [address] Care Team Providers Care Orthotic Aide Name Role Phone Marii Mcmillan MD Primary Care Provider [phone] Carmen Baird Unavailable Reason for Visit * Reason Onset Date Comments PT1 05/15/2023 Encounter Details Date Type Department Care Team ([facility] st Contact Info) Description 05/15/2023 Telephone [facility] MEDICINE [address] [place] [address] Marii Mcmillan MD [address] [place], [place] [phone] PT1 Social History Tobacco Use Types Packs/Day [...] visits) ( x monthly, weekly, daily) Address: [address] [place] [address] Facility[facility] Wheel Chair: NO Net Mobile Developer Needed: NO Address and phone confirmed by Evelyne CHAWLA documented in this encounter Plan of Treatment Upcoming Encounters Date Type Department Care Team (Late st Contact Info) Description 03/13/2025 10:30 AM EST Clinical Support [facility] MED & PEDS [address] [place] [address] 04/19/2025 2:15 PM EST Clinical Support [facility] MED & PEDS [address] [place] [address] Leelee Castaneda, RN [address] [place] [address] documented as of this encounter Visit Diagnoses Not on filedocumented in this encounter Additional Health Concerns Assessment Noted Time PHQ-9 Depression Total Score: 10 023 2:09 PM EST documented as of this encounter Care Teams Orthotic Aide Relationship Specialty Start Date End Date Marii Mcmillan MD [address] [place] [address] PCP - General Family Medicine 07/11/21 Carmen Baird 01/27/25 02/17/25 Evelyne Green Dowel PointerTrain Dispatcher 12/09/23 documented as of this encounter
--- OUTSIDE RECORDS SUMMARY | 2025-03-10 07:22 | XMS_ITS | Encounter Summary ---
Author Organization [employer] Address [address] [facility] 7t [place] [address] Care Team Providers Care Retail Mortgage Banker Name Role Phone Marii Mcmillan MD Primary Care Provider Carmen Baird Unavailable Reason for Visit * Reason Onset Date Comments Med Refill 06/27/2024 Encounter Details Date Type Department Care Team ([facility] st Contact Info) Description 06/27/2024 Telephone [facility] MEDICINE [address] [place] [address] Marii Mcmillan MD [address] [place], [place] [phone] Med Refill Social History Tobacco Use Types [...] 5-325 MG tablet To be sent to: [facility]/pharmacy #[id number] MARY CARIAS - [address] [facility] documented in this encounter Plan of Treatment Upcoming Encounters Date Type Department Care Team ([facility] st Contact Info) Description 03/13/2025 10:30 AM EST Clinical Support [facility] MED & PEDS [address] [place] [address] 04/19/2025 2:15 PM EST Clinical Support [facility] MED & PEDS [address] [place] [address] Leelee Castaneda RN [address] [place] [address] documented as of this encounter Visit Diagnoses Not on filedocumented in this encounter Additional Health Concerns Assessment Noted Time PHQ-9 Depression Total Score: 10 023 2:09 PM EST documented as of this encounter Care Teams Retail Mortgage Banker Relationship Specialty Start Date End Date Marii Mcmillan MD [address] [place] [address] PCP - General Family Medicine 07/11/21 Carmen Baird 01/27/25 02/17/25 Evelyne Green Billet SawyerWindows And Doors Installer 12/09/23 documented as of this encounter
--- OUTSIDE RECORDS SUMMARY | 2025-03-10 07:22 | XMS_ITS | Data Portability ---
Author Organization [place] [facility], Allergy Address [address] [place] [phone] Care Team Providers Care Welt Trimming Machine Operator Name Role Phone PAULINA EPSTEIN Primary Care [...] Follow-up for next debridement in 6 months. [email or web address] Not available 12/26/2024 11:23:45 Plan of Treatment [...] Organization Details Recorded Time Chronic mastoidi tis 48200057 Active 2013 Chronic mastoidi tis; Location : right CM S Risk: low risk CMS Treatmen t: establis hed problem (to examiner ): unstable or worsenin g Condit ion: unstable Note: Date Diagnose d: 4 3:25 PM (383.1) Not Available [facility] 4 02:24:10 Impacted cerumen 71135780 Active 2014 Impacted cerumen; Note: Date Diagnose d: 5 2:25 PM (380.4) Not Available [facility] 4 02:23:45 Chronic right mastoidi tis 46378755480 71236 Active 2015 Chronic mastoidi tis, right ear; Note: Date Diagnose d: 6 11:16 AM (H70.11) Not Available [facility] 4 02:24:01 Impacted cerumen in left ear 84494673823 70260 Active 2015 Impacted cerumen, left ear; Note: Date Diagnose d: 6 11:10 AM (H61.22) Not Available [facility] 4 02:23:56 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; Note: Date Diagnose d: 6 11:09 AM (383.33) Not Available [facility] 4 02:24:16 Granulat ions of mastoid cavity 256472748 Completed 201510/16/2023 Granulat ion of postmast oidectom y cavity, right ear; Note: Date Diagnose d: 6 11:16 AM (H95.121 ) Not Available [facility] 4 02:23:25 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 72865582693 35370 Active 2022 Total perforat ions of tympanic membrane , right ear; Note: Date Diagnose d: 3 10:38 AM (H72.821 ) SAI ROCA MD [address] [facility],[place] [address], [place], [address] , [place] 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 5 11:24:03 Neck pain 03154507 Active 2023 Cervical chelsie; Note: Date Diagnose d: 06/16/2023 11:02 AM (M54.2) Not Available [facility] 4 02:24:04 Chronic neck pain 96765983176 07 Active 2023 Loren bean [place] - [facility] 4 13:58:40 Candidal otitis externa 32007789 Active 2024 SAI ROCA MD [address] [place] [address],[place] [address], [place], [address] , [place] - [facility] 5 16:26:46 Problem Notes None recorded. Procedures Surgical History Date Name Laterality Status Provider Name and Address Organization Details Recorded Time 5 Debridement of Mastoid Cavity right completed SAI ROCA MD [address] [facility],[address], [address], [facility] - [facility] 12/26/2024 11:17:39 5 Debridement of Mastoid Cavity right completed FAISAL SALAS [address] [facility],[address], [address], [facility] - [facility] 10/21/2024 15:56:26 5 Debridement of Mastoid Cavity complex right completed SAI ROCA MD [address] [facility],[address], [address], [facility] - [facility] 10/04/2024 12:02:08 5 Debridement of Mastoid Cavity right completed SAI ROCA MD [address] [facility],[address], [address], [facility] - [facility] 06/01/2024 21:11:43 Imaging Results None recorded. Procedure Notes None recorded. Medical Equipment None Reported. Allergies Allergen ID Allergen Name Allergen Category Reaction Reaction Severity Criticality Documentation Date Start Date Code Code System Note Provider Name and Address Organization Details Recorded Time 371068 adhesive tape environme nt,medica tion Not available Not available Not available 05/31/2024 Cecelia bean [facility] 5 10:17:08 21233 Non-stero idal anti-infl ammatory agent (substanc e) medicatio n other Not available Not available 07/28/2023 59901 5008 SNOMED React ion: Unkno wn; Not Available [facility] 4 00:53:26 01434 Penicilli n Not available other Not available Not available 07/28/2023 83024 RxNorm React ion: Unkno wn; Not Available [facility] 4 00:53:42 Medications Name Sig Start Date Stop Date Status Note LastModified by Organization Details LastModified Time multivita min tablet active Medicati on ID: [id number] B rand Name: multivit eldridge Sen d [...] a day 06/02 completed Medicati on ID: 567300 D uration Value: 10 Brand Name: ofloxaci [...] as directed 06/02 completed Medicati on ID: [id number] D uration Value: 10 Brand Name: Ciprodex [...] vitamin K 06/02 completed Medicati on ID: 791035 B rand Name: vitamin k Send Method: [...] Updated DateTime 10/04/2024 167.64 cm 21 kg/m2 89243.01 g SONIA CASTRO [place] [facility] 10/04/2024 11:42:53 Date Recorded Body height Body mass index (BMI) Body weight Provider Name and Address Organization Details Last Updated DateTime 10/21/2024 165.1 cm 21 kg/m2 98741.64 g Maggy Telles [facility] 10/21/2024 13:32:03 Date Recorded Body height Body mass index (BMI) Body weight Provider Name and Address Organization Details Last Updated DateTime 12/26/2024 165.1 cm 21.1 kg/m2 78561.23 g Cecelia Owen [facility] 12/26/2024 11:03:26 Social History Question Answer Notes LastModified by Organizat ion Details LastModified Time Tobacco Smoking Status Former Smoker SAI ROCA MD [address] [place] [address], [address], [facility] - [facility] 10/28/2023 19:37:28 When Did You Quit Smoking? 6-10yearssin celastcigare tte [email or web address] Information not available 10/28/2023 How Many Years Have You Smoked Tobacco? 45 [email or web address] Information not available 10/28/2023 Sex: Unknown Functional Status Question Answer Note LastModified by Organization D etails LastModified Time What is your level of alcohol consumption? None [email or web address] Information not available 10/28/2023 Mental Status None recorded. Family History Nothing Reported. Medical History Condition Response Anxiety Y Glaucoma Y Depression Y Asthma Y Past Encounters Encounter ID Performer Location Encounter Start Date Encounter Closed Date Diagnosis/Indication Diagnosis SNOMED-CT Code Diagnosis ICD10 Code Diagnosis IMO Codes Diagnosis Note [id number] SAI ROCA MD [facility] [address] [address] 06/02/2024 13:15:22 06/02/2024 13:58:49 Postmastoidectomy complication 25893438 H95.191 Right canal wall down mastoidect [place] cavity was debrided today under the binocular microscope . No signs of acute or chronic inflammati on. Patient will follow-up in 12 months for next debridemen t Total perf oration of right tympanic membrane 8052063109 610207 H72.821 Chronic neck pain 512917 1356 107 M54.2 Patient's previously noted neck pain has resolved. Physical exam of the neck is normal. No need to proceed with CAT scan. [id number] SAI ROCA MD [facility] [address] [address] 10/04/2024 11:27:11 10/04/2024 11:57:36 Postmastoidectomy complication 37591289 H95.191 Right canal wall down mastoidect [place] [...] Total perf oration of right tympanic membrane 9649510295 324761 H72.821 Candidal o titis externa 46484100 B37.84 [id number] FAISAL SALAS [facility] [address] [address] 10/21/2024 13:23:09 10/21/2024 14:08:41 Postmastoidectomy complication 76831772 H95.191 Total perf oration of right tympanic membrane 5032597472 742597 H72.821 Candidal o titis externa 48225047 B37.84 Resolved. [id number] SAI ROCA MD [facility] [address] [address] 12/26/2024 10:52:48 12/26/2024 16:44:34 Postmastoidectomy complication 04108308 H95.191 Total perf oration of right tympanic membrane 3681269618 059027 H72.821 Bilateral temporomandibular joint pain 1286037978 1828874 M26.623 Today I reaffirmed the fact that [...] [employer] Member ID Guarantor Name 10/04/2024 1 MEDICAID-[facility] Manuel Grimm [id number] Manuel Grimm 12/23/2024 1 [place] - [facility] (MEDICAID) Manuel Grimm [id number] Manuel Grimm Notes Date Note Type Note [...] diagnosis of TMJD. SAI ROCA MD [address] [facility],[address], [address], [facility] - [facility] 06/02/2024 13:58:47 10/04/2024 text/html Patient with history of right canal wall down mastoidectomy cavity comes in today for mastoid debridement. Last cleaning in May 2024. At that visit I recommended 1 year follow-up. He comes back at 4 months for reevaluation. Patient reports that he has been having drainage and itchiness and irritation for a few weeks now. SAI ROCA MD [address] [facility],[address], [address], [facility] - [facility] 10/04/2024 12:02:42 10/21/2024 text/html ROS as noted in the HPI 64 year old male, with a history of right canal wall down mastoidectomy, presents for reevaluation of right fungal otitis externa. Patient reports significant improvement in terms of itchiness, but continues to endorse mild ear pain and an occasional wet sensation. No recurrent drainage since the last visit. MITZI LARRY MD [address] [facility],[address], [address], [facility] - [facility] 10/21/2024 17:43:47 12/26/2024 text/html Patient with history of right canal wall down mastoidectomy cavity comes in today for mastoid debridement. Treated over the summer for fungal mastoid bowl infection with lotrisone cream application, confirmed resolved in October. Patient denies discharge currently. He has some periauricular discomfort. He has long-term issues with TMJ SAI ROCA MD [address] [place] [address], [place], [address], [facility] - [facility] 12/26/2024 11:24:30
--- OUTSIDE RECORDS SUMMARY | 2025-03-10 07:22 | XMS_ITS | Encounter Summary ---
Author Organization [employer] Address [address] [facility] 7t [place] [address] Care Team Providers Care Bd Special Education Teacher Name Role Phone Marii Mcmillan MD Primary Care Provider [phone] Carmen Biard Unavailable Reason for Visit * Reason Onset Date Comments Referral 03/12/2023 Encounter Details Date Type Department Care Team ([facility] Contact Info) Description 03/12/2023 Telephone [facility] MED & PEDS [address] [place] [address] Marii Mcmillan MD [address] [place] [address] Referral Social History Tobacco Use Types Packs/Day [...] 03/12/2023 4:18 PM EST Referral re-faxed to [facility] gastro. * Telephone Encounter - Brooke Corral - 03/12/2023 1:49 PM EST Tc from [facility] office of [facility] gastroenterology has not received referral. documented in this encounter Plan of Treatment Upcoming Encounters Date Type Department Care Team (Late st Contact Info) Description 03/13/2025 10:30 AM EST Clinical Support [facility] MED & PEDS [address] [place] [address] 04/19/2025 2:15 PM EST Clinical Support [facility] MED & PEDS [address] [place] [address] Leelee Castaneda, RN [address] [place] [address] documented as of this encounter Visit Diagnoses Not on filedocumented in this encounter Additional Health Concerns Assessment Noted Time PHQ-9 Depression Total Score: 10 023 2:09 PM EST documented as of this encounter Care Teams Bd Special Education Teacher Relationship Specialty Start Date End Date Marii Mcmillan MD [address] [place] [address] PCP - General Family Medicine 07/11/21 Carmen Baird 01/27/25 02/17/25 Evelyne Green Airset MolderRetort Kiln Burner 12/09/23 documented as of this encounter
--- OUTSIDE RECORDS SUMMARY | 2025-03-10 07:22 | XMS_ITS | Encounter Summary ---
Author Organization [employer] Address [address] [facility] 7t [place] [address] Care Team Providers Care Manager Trust Name Role Phone Marii Mcmillan MD Primary Care Provider [phone] Carmen Baird Unavailable Reason for Visit * Reason Onset Date Comments CHART PREP 01/26/2024 Encounter Details Date Type Department Care Team ([facility] Contact Info) Description 01/26/2024 Telephone [facility] [address] [place] [address] Marii Mcmillan MD 505 [place] [address] CHART PREP Social History Tobacco Use Types [...] Description 03/13/2025 10:30 AM EST Clinical Support [facility] [address] [place] [address] 04/19/2025 2:15 PM EST Clinical Support [facility] [address] [place] [address] Leelee Castaneda, REGINA 505 [place] [address] documented as of this encounter Visit Diagnoses Diagnosis Polyarthralgia Pain in joint, multiple sites documented in this encounter Additional Health Concerns Assessment Noted Time PHQ-9 Depression Total Score: 10 023 2:09 PM EST documented as of this encounter Care Teams Manager Trust Relationship Specialty Start Date End Date Marii Mcmillan MD [address] [place] [address] PCP - General Family Medicine 07/11/21 Carmen Baird 01/27/25 02/17/25 Evelyne Green Header Set Up OperatorAwning Spreader 12/09/23 documented as of this encounter
--- OUTSIDE RECORDS SUMMARY | 2025-03-10 07:22 | XMS_ITS | Encounter Summary ---
Author Organization [employer] Address [address] [place] [address] 7 [place] [address] Care Team Providers Care Technical Support Specialist Name Role Phone Marii Mcmillan MD Primary Care Provider [phone] Carmen Baird Unavailable Reason for Referral * Imaging (STAT) - Closed Specialty Diagnoses / Procedures Referred By Justino palma Referred To Contact Radiology Diagnoses Mass of right inguinal region Procedures Us Pelvis complete Gildardo Huertas MD [address] [place] [address] Phone: tel: fax: [address] [address] Phone: tel: fax: Referral ID Status Reason Start Date Expiration Date Visits Re quested Visits Authorized [id number] Closed 09/18/2022 09/18/2023 1 1 Encounter Details Date Type Department Care Team (Late st Contact Info) Description 09/18/2022 Orders Only [facility] MED & PEDS [address] [place], [place] [phone] Gildardo Huertas MD [address] [place], [place] [phone] Mass of right inguinal region (Primary Dx) [...] Description 03/13/2025 10:30 AM EST Clinical Support [facility] [address] [place] [address] 04/19/2025 2:15 PM EST Clinical Support [facility] [address] [place] [address] Leelee Castaneda, RN 505 [place] [address] Scheduled Orders Name Type Priority Associated Diagnoses [...] PM EDT Narrative 09/25/2022 10:43 AM EDT [address] [address] Ultrasound Report Signed Patient: Manuel Grimm MR#: [id number] : 1960 Acct:[id number] Age/Sex: 62 / M ADM Date: 09/18/22 Loc: HO.US Attending Dr: Marii Mcmillan MD Ordering Physician: Marii Mcmillan MD Date of Service: 09/18/22 Procedure(s): US pelvic limited Accession Number(s): [id number] cc: Marii Mcmillan MD EXAMINATION: US RIGHT [...] in OV> 09/25/22 1039 DD/ 1503 TD/TT: International Organizer: Procedure Note Donotuseinterpreter, Image - 09/25/2022 [place] [address] Ultrasound Report Signed Patient: Manuel Grimm DMR#: [id number] : 1960cct:[id number] Age/Sex: 62 / MADM Date: 09/18/22 Loc: .US Attending Dr: Marii Mcmillan MD Ordering Physician: Marii Mcmillan MD Date of Service: 09/18/22 Procedure(s): US pelvic limited Accession Number(s): [id number] cc: Marii Mcmillan MD EXAMINATION: US RIGHT [...] in OV> 09/25/22 1039 DD/ 1503 TD/TT: International Organizer: [facility] External Provider IMG US PROCEDURES Final Result documented in this encounter Visit Diagnoses Diagnosis Mass of right inguinal region- Primary documented in this encounter Additional Health Concerns Assessment Noted Time PHQ-9 Depression Total Score: 10 023 2:09 PM EST documented as of this encounter Care Teams Technical Support Specialist Relationship Specialty Start Date End Date Marii Mcmillan MD [address] [place] [address] PCP - General Family Medicine 07/11/21 Carmen Baird 01/27/25 02/17/25 Evelyne Green Seam PresserConstruction Skills Teacher 12/09/23 documented as of this encounter
--- OUTSIDE RECORDS SUMMARY | 2025-03-10 07:22 | XMS_ITS | Encounter Summary ---
Author Organization [employer] Address [address] [facility] 7t [place] [address] Care Team Providers Care Heating And Cooling Systems Engineer Name Role Phone Marii Mcmillan MD Primary Care Provider Carmen Baird Unavailable Reason for Visit * Reason Onset Date Comments Appointment Request 08/15/2024 Encounter Details Date Type Department Care Team ([facility] Contact Info) Description 08/15/2024 Telephone [facility] MED[facility] [address] [place] [address] Marii Mcmillan MD [address] [place], [place] [phone] Appointment Request Social History Tobacco Use Types [...] EDT Tc from pt requesting to reschedule CELLULOSE INSULATION HELPER visit. Please contact pt at [phone]. documented in this encounter Plan of Treatment Upcoming Encounters Date Type Department Care Team ([facility] st Contact Info) Description 03/13/2025 10:30 AM EST Clinical Support [facility] [address] [place] [address] 04/19/2025 2:15 PM EST Clinical Support [facility] [address] [place] [address] Leelee Castaneda RN 505 [place] [address] documented as of this encounter Visit Diagnoses Not on filedocumented in this encounter Additional Health Concerns Assessment Noted Time PHQ-9 Depression Total Score: 10 023 2:09 PM EST documented as of this encounter Care Teams Heating And Cooling Systems Engineer Relationship Specialty Start Date End Date Marii Mcmillan MD [address] [place] [address] PCP - General Family Medicine 07/11/21 Carmen Baird 01/27/25 02/17/25 Evelyne Green Elementary Esl TeacherPlumbing And Heating Contractor 12/09/23 documented as of this encounter
--- OUTSIDE RECORDS SUMMARY | 2025-03-10 07:22 | XMS_ITS | Encounter Summary ---
Author Organization [employer] Address [address] [place] [address] 7t [place] [address] Care Team Providers Care Freelance Art Director Name Role Phone Marii Mcmillan MD Primary Care Provider [phone] Carmen Baird Unavailable Reason for Visit * Reason Comments Med Refill Encounter Details Date Type Department Care Team (Late Contact Info) Description 04/08/2022 Refill [facility] MED & PEDS [address] [place] [address] Marii Mcmillan MD 505 [place] [address] Vitamin deficiency, unspecified Social History Tobacco Use [...] Department Care Team (Late Contact Info) Description 03/13/2025 10:30 AM EST Clinical Support [facility] MED [facility] 505 [place] [address] 04/19/2025 2:15 PM EST Clinical Support [facility] MED [facility]ED[facility] [address] [place] [address] Leelee Castaneda, RN 505 [place] [address] documented as of this encounter Visit Diagnoses Diagnosis Vitamin deficiency, unspecified documented in this encounter Care Teams Freelance Art Director Relationship Specialty Start Date End Date Marii Mcmillan MD [address] [place] [address] PCP - General Family Medicine 07/11/21 Carmen Baird 01/27/25 02/17/25 Evelyne Green Tractor MechanicGreenstone Polisher Operator 12/09/23 documented as of this encounter
--- OUTSIDE RECORDS SUMMARY | 2025-03-10 07:22 | XMS_ITS | Encounter Summary ---
Author Organization [employer] Address [address] [facility] 7t [place] [address] Care Team Providers Care Tracer Lathe Set Up Operator Name Role Phone Marii Mcmillan MD Primary Care Provider [phone] Carmen Baird Unavailable Reason for Visit * Reason Onset Date Comments Med Refill 02/13/2025 Encounter Details Date Type Department Care Team ([facility] st Contact Info) Description 02/13/2025 Telephone [facility] MEDICINE [address] [place] [address] Marii Mcmillan MD [address] [place], [place] [phone] Med Refill Social History Tobacco Use Types [...] 500 MG tablet To be sent to: [facility]/pharmacy #[id number] MARY CARIAS - [address] [facility] documented in this encounter Plan of Treatment Upcoming Encounters Date Type Department Care Team ([facility] st Contact Info) Description 03/13/2025 10:30 AM EST Clinical Support [facility] MED & PEDS 505 [facility] [place] [address] 04/19/2025 2:15 PM EST Clinical Support [facility] MED & PEDS 505 [facility] [place] [address] Leelee Castaneda, RN 505 [facility] [place] [address] documented as of this encounter Visit Diagnoses Not on filedocumented in this encounter Additional Health Concerns Assessment Noted Time PHQ-9 Depression Total Score: 10 023 2:09 PM EST documented as of this encounter Care Teams Tracer Lathe Set Up Operator Relationship Specialty Start Date End Date Marii Mcmillan MD [address] [place] [address] PCP - General Family Medicine 07/11/21 Carmen Baird 01/27/25 02/17/25 Evelyne Green Supervisor Fabrication DepartmentAfloat Cryptologic Manager 12/09/23 documented as of this encounter
--- OUTSIDE RECORDS SUMMARY | 2025-03-10 07:22 | XMS_ITS | Encounter Summary ---
Author Organization [employer] Address [address] [place] [address] 7t [place] [address] Care Team Providers Care Engineer/Conductor Name Role Phone Marii Mcmillan MD Primary Care Provider [phone] Carmen Baird Unavailable Reason for Visit * Reason Comments Med Change Request Encounter Details Date Type Department Care Team ([facility] Contact Info) Description 05/27/2022 Refill [facility] MED & PEDS [address] [place] [address] Marii Mcmillan MD 505 [place] [address] Takes dietary supplements Social History Tobacco Use [...] Description 03/13/2025 10:30 AM EST Clinical Support [facility] MED & PEDS [address] [place] [address] 04/19/2025 2:15 PM EST Clinical Support [facility]ED[facility] [address] [place] [address] Leelee Castaneda, RN 505 [place] [address] documented as of this encounter Visit Diagnoses Diagnosis Takes dietary supplements documented in this encounter Additional Health Concerns Assessment Noted Time PHQ-9 Depression Total Score: 10 023 2:09 PM EST documented as of this encounter Care Teams Engineer/Conductor Relationship Specialty Start Date End Date Marii Mcmillan MD [address] [place] [address] PCP - General Family Medicine 07/11/21 Carmen Baird 01/27/25 02/17/25 Evelyne Green Imitation Marble MechanicSider Mechanic 12/09/23 documented as of this encounter
--- OUTSIDE RECORDS SUMMARY | 2025-03-10 07:22 | XMS_ITS | Continuity of Care Document ---
Author Organization [place] [facility], [facility] Address [address] [place] [address] Care Team Providers Care Scout Name Role Phone EPSTEIN, PAULINA Primary Care [...] Follow-up for next debridement in 6 months. [email or web address] Not available 12/26/2024 11:23:45 Plan of Treatment [...] Organization Details Recorded Time Chronic mastoidi tis 12408019 Active 2013 Chronic mastoidi tis; Location : right CM S Risk: low risk CMS Treatmen t: establis hed problem (to examiner ): unstable or worsenin g Condit ion: unstable Note: Date Diagnose d: 4 3:25 PM (383.1) Not Available [facility] 4 02:24:10 Impacted cerumen 69299768 Active 2014 Impacted cerumen; Note: Date Diagnose d: 5 2:25 PM (380.4) Not Available [facility] 4 02:23:45 Chronic right mastoidi tis 51807504890 Active 2015 Chronic mastoidi tis, right ear; Note: Date Diagnose d: 6 11:16 AM (H70.11) Not Available [facility] 4 02:24:01 Impacted cerumen in left ear 03475110166 Active 2015 Impacted cerumen, left ear; Note: Date Diagnose d: 6 11:10 AM (H61.22) Not Available [facility] 4 02:23:56 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; Note: Date Diagnose d: 6 11:09 AM (383.33) Not Available [facility] 4 02:24:16 Granulat ions of mastoid cavity 652419972 Completed 201510/16/2023 Granulat ion of postmast oidectom y cavity, right ear; Note: Date Diagnose d: 6 11:16 AM (H95.121 ) Not Available [facility] 4 02:23:25 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; Note: Date Diagnose d: 06/16/2023 11:02 AM (M26.623 ) SAI ROCA MD [address] [facility],[place] [address], [place], [address] , [place] - [facility] 5 11:24:03 Neck pain 92140741 Active 2023 Cervical chelsie; Note: Date Diagnose d: 06/16/2023 11:02 AM (M54.2) Not Available [facility] 4 02:24:04 Chronic neck pain 53251359734 07 Active 2023 Loren bean [place] - [facility] [place] 4 13:58:40 Candidal otitis externa 08355209 Active 2024 SAI ROCA MD [address] [facility] [address], [place], [address] , [place] - [facility] 5 16:26:46 Problem Notes None recorded. Procedures Surgical History Date Name Laterality Status Provider Name and Address Organization Details Recorded Time 5 Debridement of Mastoid Cavity right completed SAI ROCA MD [address] [facility],[place]ISA [facility] [place], [address], [place] - [facility] 12/26/2024 11:17:39 5 Debridement of Mastoid Cavity right completed FAISAL SALAS [address],[place] [facility], [place], [address], [place] - [facility] 10/21/2024 15:56:26 5 Debridement of Mastoid Cavity complex right completed SAI ROCA MD [address] [facility],[place] [address], [place], [address], [facility] - [facility] 10/04/2024 12:02:08 5 Debridement of Mastoid Cavity right completed SAI ROCA MD [address] [facility],[place] [address], [place], [address], [facility] - [facility] 06/01/2024 21:11:43 Imaging Results None recorded. Procedure Notes None recorded. Medical Equipment None Reported. Allergies Allergen ID Allergen Name Allergen Category Reaction Reaction Severity Criticality Documentation Date Start Date Code Code System Note Provider Name and Address Organization Details Recorded Time 331420 adhesive tape environme nt,medica tion Not available Not available Not available 05/31/2024 Cecelia bean [facility] 5 10:17:08 [address] Non-stero idal anti-infl ammatory agent (substanc e) medicatio n other Not available Not available 07/28/2023 04605 5008 SNOMED React ion: Unkno wn; Not Available [facility] 4 00:53:26 05362 Penicilli n Not available other Not available Not available 07/28/2023 40188 RxNorm React ion: Unkno wn; Not Available [facility] 4 00:53:42 Medications Name Sig Start Date Stop Date Status Note LastModified by Organization Details LastModified Time multivita min tablet active Medicati on ID: 288339 B rand Name: multivit eldridge Sen d [...] a day 06/02 completed Medicati on ID: 255595 D uration Value: 10 Brand Name: ofloxaci [...] TAKE 30 MINUTES PRIOR TO ARRIVAL TO [facility] 06/02 completed Not Available Not Available [...] as directed 06/02 completed Medicati on ID: 741118 D uration Value: 10 Brand Name: Ciprodex [...] vitamin K 06/02 completed Medicati on ID: 842588 B rand Name: vitamin k Send Method: [...] Updated DateTime 12/26/2024 165.1 cm 21.1 kg/m2 68478.23 g Cecelia Owen [place] - [facility] 12/26/2024 11:03:26 Social History Question Answer Notes LastModified by Organizat ion Details LastModified Time Tobacco Smoking Status Former Smoker SAI ROCA MD [address] [place] [address], [address], [facility] - [facility] 10/28/2023 19:37:28 When Did You Quit Smoking? 6-10yearssin celastcigare tte [email or web address] Information not available 10/28/2023 How Many Years Have You Smoked Tobacco? 45 [email or web address] Information not available 10/28/2023 Sex: Unknown Functional [...] ICD10 Code Diagnosis IMO Codes Diagnosis Note [id number] SAI ROCA MD [facility] of [address] [address] 12/26/2024 10:52:48 12/26/2024 16:44:34 Postmastoidectomy complication 53317570 H95.191 Total perf oration of right tympanic membrane 9797859353 743112 H72.821 Bilateral temporomandibular joint pain 5998268425 5268617 M26.623 Today I reaffirmed the fact that [...] - [facility] (MEDICAID) Manuel Grimm [id number] Manuel Grimm Notes Date Note Type Note [...] long-term issues with TMJ SAI ROCA MD [address] [place] [address], [place], [address], [place] - [facility] 12/26/2024 11:24:30
--- OUTSIDE RECORDS SUMMARY | 2025-03-10 07:22 | XMS_ITS | Encounter Summary ---
Author Organization [employer] Address [address] [place] [address] 7t [place] [address] Care Team Providers Care Washing Machine Assembler Name Role Phone Marii Mcmillan MD Primary Care Provider [phone] Carmen Baird Unavailable Reason for Visit * Reason Onset Date Comments Referral 05/20/2022 Encounter Details Date Type Department Care Team ([facility] Contact Info) Description 05/20/2022 Telephone [facility] MED & PEDS [address] [place] [address] Marii Mcmillan MD [address] [place] [address] Referral Social History Tobacco Use Types Packs/Day [...] made on 02/04/2022. Please contact pt at [phone] documented in this encounter Plan of Treatment Upcoming Encounters Date Type Department Care Team ([facility] st Contact Info) Description 03/13/2025 10:30 AM EST Clinical Support [facility] MED & PEDS [address] [place] [address] 04/19/2025 2:15 PM EST Clinical Support [facility] MED & PEDS [address] [place] [address] Leelee Castaneda, RN [address] [place] [address] documented as of this encounter Visit Diagnoses Not on filedocumented in this encounter Care Teams Washing Machine Assembler Relationship Specialty Start Date End Date Marii Mcmillan MD [address] [place] [address] PCP - General Family Medicine 07/11/21 Carmen Baird 01/27/25 02/17/25 Evelyne Green Shipping AgentTour Coordinator 12/09/23 documented as of this encounter
--- OUTSIDE RECORDS SUMMARY | 2025-03-10 07:22 | XMS_ITS | Encounter Summary ---
Author Organization [employer] Address [address] [facility] 7t [place] [address] Care Team Providers Care Rehabilitation Technician Name Role Phone Marii Mcmillan MD Primary Care Provider [phone] Carmen Baird Unavailable Reason for Visit * Reason Onset Date Comments Appointment Request 04/22/2023 Encounter Details Date Type Department Care Team ([facility] Contact Info) Description 04/22/2023 Telephone [facility] MED & PEDS [address] [place] [address] Marii Mcmillan MD [address] [place] [address] Appointment Request Social History Tobacco Use Types [...] was scheduled for [facility] today [facility] but, due to car not starting [...] is offered to come to [facility] today or tomorrow morning but, Pt would rather come to [facility]. Pt is advised to call back [...] (Car wont Start) Please contact pt @ [phone] documented in this encounter Plan of Treatment Upcoming Encounters Date Type Department Care Team ([facility] st Contact Info) Description 03/13/2025 10:30 AM EST Clinical Support [facility] MED & PEDS [address] [place] [address] 04/19/2025 2:15 PM EST Clinical Support [facility] MED & PEDS [address] [place] [address] Leelee Castaneda, RN [address] [place] [address] documented as of this encounter Visit Diagnoses Not on filedocumented in this encounter Additional Health Concerns Assessment Noted Time PHQ-9 Depression Total Score: 10 023 2:09 PM EST documented as of this encounter Care Teams Rehabilitation Technician Relationship Specialty Start Date End Date Marii Mcmillan MD [address] [place] [address] PCP - General Family Medicine 07/11/21 Carmen Baird 01/27/25 02/17/25 Evelyne Green Dryer OperatorTitle One Teacher 12/09/23 documented as of this encounter
--- OUTSIDE RECORDS SUMMARY | 2025-03-10 07:22 | XMS_ITS | Patient Health Record ---
Author Organization [facility] Address [address] [place] [address] Care Team Providers Care Bottom Buffer Name Role Phone Iman CAGLE, Maryjo Primary Care Provider Angel Mathew Jr Unavailable [phone] Allergies Allergen (clinical drug ingredient) Drug/Non [...] W/U Status Risk Notes Problem Alcoholic cirrhosis (396472758) Alcoholic cirrhosis of liver without ascites (K70.30) Active confirmed Plan Of Treatment No Information Insurance Providers Payer Name Payer Address Payer Phone Subscriber Number Group Number Insured Name Patient Relationship to Insured Coverage Start Date Coverage End Date [facility] [address] [address] [place], [place] [id number] LISA DWYER Self - patient is the insured Medical (General) History Medical History History ICD Code left bundle-branch block tuberculosis glaucoma anxiety/depression/mood disorder with pa ranoia cirrhosis substance abuse, and in remission asthma disc disease Surgical History Surgery Date(Month/Year) eye surgery ear surgery cholecystectomy hernia repair
--- OUTSIDE RECORDS SUMMARY | 2025-03-10 07:23 | XMS_ITS | Encounter Summary ---
Author Organization [employer] Address [address] [facility] [address] [place] [address] Care Team Providers Care Waterproof Material Folder Name Role Phone Marii Mcmillan MD Primary Care Provider [phone] Carmen Baird Unavailable Reason for Visit * Reason Onset Date Comments Med Refill 08/25/2024 Encounter Details Date Type Department Care Team ([facility] st Contact Info) Description 08/25/2024 Telephone [facility] MEDICINE [address] [place] [address] Marii Mcmillan MD [address] [place], [place] [phone] Med Refill Social History Tobacco Use Types [...] 5-325 MG tablet To be sent to: [facility]/pharmacy #[id number] MARY CARIAS - [address] [facility] documented in this encounter Plan of Treatment Upcoming Encounters Date Type Department Care Team ([facility] st Contact Info) Description 03/13/2025 10:30 AM EST Clinical Support [facility] [address] [place] [address] 04/19/2025 2:15 PM EST Clinical Support [facility] [address] [place] [address] Leelee Castaneda, REGINA [address] [place] [address] documented as of this encounter Visit Diagnoses Not on filedocumented in this encounter Additional Health Concerns Assessment Noted Time PHQ-9 Depression Total Score: 10 023 2:09 PM EST documented as of this encounter Care Teams Waterproof Material Folder Relationship Specialty Start Date End Date Marii Mcmillan MD [address] [place] [address] PCP - General Family Medicine 07/11/21 Carmen Baird 01/27/25 02/17/25 Evelyne Green BaristaPsychiatric Aide Instructor 12/09/23 documented as of this encounter
--- OUTSIDE RECORDS SUMMARY | 2025-03-10 07:23 | XMS_ITS | Encounter Summary ---
Author Organization [employer] Address [address] [facility] [address] [place] [address] Care Team Providers Care Almond Cutting Machine Tender Name Role Phone Marii Mcmillan MD Primary Care Provider [phone] Carmen Baird Unavailable Encounter Details Date Type Department Care Team ([facility] st Contact Info) Description 06/22/2023 Telephone [facility] MEDICINE [address] [place] [address] Marii Mcmillan MD [address] [place], [place] [phone] Social History Tobacco Use Types Packs/Day Years [...] [facility] [address] [place] [address] 04/19/2025 2:15 PM EST Clinical Support [facility] [address] [place] [address] Leelee Castaneda, RN [address] [place] [address] documented as of this encounter Visit Diagnoses Not on filedocumented in this encounter Additional Health Concerns Assessment Noted Time PHQ-9 Depression Total Score: 10 023 2:09 PM EST documented as of this encounter Care Teams Almond Cutting Machine Tender Relationship Specialty Start Date End Date Marii Mcmillan MD [address] [place] [address] PCP - General Family Medicine 07/11/21 Carmen Baird 01/27/25 02/17/25 Evelyne Green Telephone Service AdviserSuperannuation Clerk 12/09/23 documented as of this encounter
--- OUTSIDE RECORDS SUMMARY | 2025-03-10 07:23 | XMS_ITS | Encounter Summary ---
Author Organization [employer] Address [address] [facility] [address] [place] [address] Care Team Providers Care Manager Pathology Name Role Phone Marii Mcmillan MD Primary Care Provider [phone] Carmen Baird Unavailable Reason for Visit * Reason Onset Date Comments Med Refill 01/28/2024 Encounter Details Date Type Department Care Team ([facility] st Contact Info) Description 01/28/2024 Telephone [facility] MEDICINE [address] [place] [address] Marii Mcmillan MD [address] [place], [place] [phone] Med Refill Social History Tobacco Use Types [...] MG tablet To be sent to: [facility]/pharmacy #[id number] MARY CARIAS - [address] [place] [address] documented in this encounter Plan of Treatment Upcoming Encounters Date Type Department Care Team ([facility] st Contact Info) Description 03/13/2025 10:30 AM EST Clinical Support [facility] [address] [place] [address] 04/19/2025 2:15 PM EST Clinical Support [facility] [address] [place] [address] Leelee Castaneda, RN [address] [place] [address] documented as of this encounter Visit Diagnoses Not on filedocumented in this encounter Additional Health Concerns Assessment Noted Time PHQ-9 Depression Total Score: 10 023 2:09 PM EST documented as of this encounter Care Teams Manager Pathology Relationship Specialty Start Date End Date Marii Mcmillan MD [address] [place] [address] PCP - General Family Medicine 07/11/21 Carmen Baird 01/27/25 02/17/25 Evelyne Green Sales Representative PublicationsTechnical Clerk 12/09/23 documented as of this encounter
--- OUTSIDE RECORDS SUMMARY | 2025-03-10 07:23 | XMS_ITS | Encounter Summary ---
Author Organization [employer] Address [address] [facility] [address] [place] [address] Care Team Providers Care Invas Tech Name Role Phone Marii Mcmillan MD Primary Care Provider [phone] Carmen Baird Unavailable Reason for Visit * Reason Onset Date Comments Med Change Request 11/04/2023 Encounter Details Date Type Department Care Team ([facility] st Contact Info) Description 11/04/[address] [facility] MEDICINE [address] [place] [address] Marii Mcmillan MD [address] [place], [place] [phone] Med Change Request Social History Tobacco Use [...] [facility] [address] [place] [address] 04/19/2025 2:15 PM EST Clinical Support [facility] [address] [place] [address] Leelee Castaneda RN [address] [place] [address] documented as of this encounter Visit Diagnoses Not on filedocumented in this encounter Additional Health Concerns Assessment Noted Time PHQ-9 Depression Total Score: 10 023 2:09 PM EST documented as of this encounter Care Teams Invas Tech Relationship Specialty Start Date End Date Marii Mcmillan MD [address] [place] [address] PCP - General Family Medicine 07/11/21 Carmen Baird 01/27/25 02/17/25 Evelyne Green Accounts Payable AssistantAdmission Nurse Coordinator 12/09/23 documented as of this encounter
== END 2025-03-10 07:20 | disposition home or self-care (01) ==
LOC: HO.CT 07:19
PROVIDERS: PCP Family Medicine
DX: R10.31 Right lower quadrant pain (principal)
CPT/HCPCS: 74176

== ENCOUNTER → 2025-03-10 07:21 | Outpatient (BNV) | payer MEDICAID, SELFPAY | PROVIDERS: PCP Family Medicine; Visit Provider Specialist | DX: R10.31 Right lower quadrant pain (principal) | CPT/HCPCS: 74176 ==